=== PATIENT | male | born 1950 | race Two or more races ===

== ENCOUNTER 2018-04-04 10:43 | Inpatient (IN) | payer MEDICARE, MEDICAID ==
[~2018-04-04] VITALS: Ht 165.1 cm; Wt 57.6 kg
[2018-04-04] MEDS ORDERED: Vancomycin 1 GM in NS 275 ML IV ONE (11:00)
--- NOTE | 2018-04-04 11:03 | Emergency Room Report ---
History of Present Illness General Chief Complaint: Dyspnea/Respdistress Source: Medical Record, EMS Present Illness HPI [facility] He is brought in by EMS. He is a history of multiple chronic illnesses. He is nonverbal at baseline. Per EMS, they were [facility] for low oxygen saturation. He has a history of dementia, hypertension, diabetes, recurrent sepsis and pneumonia. There is no other history available. Allergies: Coded Allergies: CEFTRIAXONE (Verified Allergy, Unknown, 04/04/18) Patient History Past Medical History: see triage record, DM, HTN, CAD, pneumonia, GERD, CVA/TIA , dementia Social History: Denies: smoking, alcohol use, drug use Reviewed Nursing Documentation: PMH: Agreed; PSxH: Agreed Review of Systems All Other Systems: limited Physical Exam Vital Signs Date Time Temp Pulse Resp B/P (MAP) Pulse Ox O2 Delivery O2 Flow Rate FiO2 04/04/18 10:45 97.5 114 22 99/67 100 Non-Rebreather 15.0 97.5 Sp02 EP Interpretation: reviewed, normal General Appearance: alert, GCS 15, cachetic, thin, Chronically Ill Head: normocephalic, atraumatic ENT: normal pharynx, no angioedema, other - Mouth open and mouth breathing. Neck: full range of motion, supple/symm/no masses Respiratory: no respiratory distress, no retraction, no accessory muscle use, crackles Cardiovascular #1: no edema, tachycardia Gastrointestinal: normal bowel sounds, soft, non-distended Rectal: deferred Musculoskeletal: other - cachectic, contractions Neurologic: alert, other - Non-focal. Nonverbal at baseline. Unable to cooperate with exam., grossly normal Psychiatric: mood/affect normal Skin: other - See RN skin exam. Multiple DU Medical Decision Making Diagnostic Impression: Primary Impression: Multifocal pneumonia Additional Impressions: Respiratory failure Sepsis Pyelonephritis ER Course This chronically ill patient presents with a multifocal pneumonia and pyelonephritis. There also could be an element of congestive heart failure given the findings on chest x-ray. The patient did have some hypoxemia. There is also some CO2 retention and given the patient's age, I felt that I should place the patient on BiPAP to help with work of breathing. Patient is DO NOT INTUBATE. Patient was also given broad-spectrum antibiotics and IV fluids. Patient is slightly tachycardic but this improved with IV fluids. Patient is chronically ill and has a very poor prognosis. The patient is admitted to the ICU step down. This patient is critically ill. This patient required complex medical decision- making, aggressive intervention, extensive laboratory workup and monitoring. Critical care time: 40 minutes. Laboratory Tests Test 04/04/18 10:45 04/04/18 10:46 White Blood Count 18.5 K/UL (4.8-10.8) H Red Blood Count 3.94 M/UL (4.70-6.10) L Hemoglobin 9.9 G/DL (14.2-18.0) L Hematocrit 33.3 % (42.0-52.0) L Mean Corpuscular Volume 85 FL (80-99) Mean Corpuscular Hemoglobin 25.2 PG (27.0-31.0) L Mean Corpuscular Hemoglobin Concent 29.8 G/DL (32.0-36.0) L Red Cell Distribution Width 16.1 % (11.6-14.8) H Platelet Count 454 K/UL (150-450) H Mean Platelet Volume 7.8 FL (6.5-10.1) Neutrophils (%) (Auto) % (45.0-75.0) Lymphocytes (%) (Auto) % (20.0-45.0) Monocytes (%) (Auto) % (1.0-10.0) Eosinophils (%) (Auto) % (0.0-3.0) Basophils (%) (Auto) % (0.0-2.0) Differential Total Cells Counted 100 Neutrophils % (Manual) 89 % (45-75) H Lymphocytes % (Manual) 8 % (20-45) L Monocytes % (Manual) 2 % (1-10) Eosinophils % (Manual) 0 % (0-3) Basophils % (Manual) 0 % (0-2) Band Neutrophils 1 % (0-8) Platelet Estimate Adequate Platelet Morphology Normal Hypochromasia 2+ Anisocytosis 1+ Urine Color Yellow Urine Appearance Turbid Urine pH 9 (4.5-8.0) Urine Specific Sharon 1.015 (1.005-1.035) Urine Protein 3+ (NEGATIVE) H Urine Glucose (UA) Negative (NEGATIVE) Urine Ketones Negative (NEGATIVE) Urine Blood 4+ (NEGATIVE) H Urine Nitrite Negative (NEGATIVE) Urine Bilirubin Negative (NEGATIVE) Urine Urobilinogen Normal MG/DL (0.0-1.0) Urine Leukocyte Esterase 3+ (NEGATIVE) H Urine RBC Tntc /HPF (0 - 0) H Urine WBC Tntc /HPF (0 - 0) H Urine Squamous Epithelial Cells Few /LPF (NONE/OCC) Urine Triple Phosphate Crystals Moderate /LPF (NONE) H Urine Bacteria Many /HPF (NONE) H Sodium Level 152 MMOL/L (136-145) H Potassium Level 4.0 MMOL/L (3.5-5.1) Chloride Level 110 MMOL/L (98-107) H Carbon Dioxide Level 36 MMOL/L (21-32) H Anion Gap 6 mmol/L (5-15) Blood Urea Nitrogen 46 mg/dL (7-18) H Creatinine 0.8 MG/DL (0.55-1.30) Estimate Glomerular Filtration Rate > 60 mL/min (>60) Glucose Level 281 MG/DL (74-106) H Lactic Acid Level 1.40 mmol/L (0.4-2.0) Calcium Level 9.4 MG/DL (8.5-10.1) Total Bilirubin 0.3 MG/DL (0.2-1.0) Aspartate Amino Transferase (AST) 27 U/L (15-37) Alanine Aminotransferase (ALT) 52 U/L (12-78) Alkaline Phosphatase 177 U/L (46-116) H Total Creatine Kinase 21 U/L (26-308) L Creatine Kinase MB 0.5 NG/ML (0.0-3.6) Creatine Kinase MB Relative Index 2.3 Troponin I 0.000 ng/mL (0.000-0.056) Total Protein 9.3 G/DL (6.4-8.2) H Albumin 1.8 G/DL (3.4-5.0) L Globulin 7.5 g/dL Albumin/Globulin Ratio 0.2 (1.0-2.7) L Arterial Blood pH 7.500 (7.350-7.450) Arterial Blood Partial Pressure CO2 46.6 mmHg (35.0-45.0) H Arterial Blood Partial Pressure O2 53.7 mmHg (75.0-100.0) L Arterial Blood HCO3 36.3 mmol/L (22.0-26.0) H Arterial Blood Oxygen Saturation 90.0 % (92.0-98.0) L Arterial Blood Base Excess 11.9 Daryl Test Positive EKG Diagnostic Results Rate: tachycardiac Rhythm: other - S.tachycardia ST Segments: no acute changes Rhythm Strip Diag. Results EP Interpretation: yes Rate: 110's Rhythm: no PVC's, no ectopy, other - S.tachy Chest X-Ray Diagnostic Results Chest X-Ray Diagnostic Results : Chest X-Ray Ordered: Yes # of Views/Limited/Complete: 1 View Interpretation: other - Diffuse opacities Impression: Other - See above Electronically Signed by: Lucien Last Vital Signs Date Time Temp Pulse Resp B/P (MAP) Pulse Ox O2 Delivery O2 Flow Rate FiO2 04/04/18 10:45 97.5 114 22 99/67 100 Non-Rebreather 15.0 97.5 Disposition: ADMITTED INPATIENT Condition: Critical Kristi Saez DO Apr 04, 2018 11:03
[2018-04-04 11:05] VITALS: BP 99/67
[2018-04-04 11:06] LABS: HEMATOCRIT 33.3 % (42.0-52.0); HEMOGLOBIN 9.9 G/DL (14.2-18.0); MEAN CORPUSCULAR VOLUME 85 FL (80-99); PLATELET COUNT 454 K/UL (150-450); RED BLOOD COUNT 3.94 M/UL (4.70-6.10); RED CELL DISTRIBUTION WIDTH 16.1 % (11.6-14.8); WHITE BLOOD COUNT 18.5 K/UL (4.8-10.8)
[2018-04-04 11:11] LABS: APPEARANCE,URINE TURBID; BILIRUBIN, URINE NEGATIVE (NEGATIVE); GLUCOSE, URINE (UA) NEGATIVE (NEGATIVE); KETONES,URINE NEGATIVE (NEGATIVE); LEUKOCYTE ESTERASE ,URINE 3+ (NEGATIVE); NITRITE,URINE NEGATIVE (NEGATIVE); PH,URINE 9 (4.5-8.0); PROTEIN,URINE 3+ (NEGATIVE); UROBILINOGEN,URINE NORMAL MG/DL (0.0-1.0)
[2018-04-04 11:13] LABS: COLOR,URINE YELLOW
[2018-04-04 11:15] LABS: ANION GAP 6 mmol/L (5-15); BLOOD UREA NITROGEN 46 mg/dL (7-18); CALCIUM 9.4 MG/DL (8.5-10.1); CARBON DIOXIDE 36 MMOL/L (21-32); CHLORIDE 110 MMOL/L (98-107); CREATININE 0.8 MG/DL (0.55-1.30); SODIUM 152 MMOL/L (136-145)
[2018-04-04] MEDS ORDERED: IPRATROPIU0.2 MG/1 M HHN (11:27)
[2018-04-04] MEDS ORDERED: CRANBERRY EXTRAC1 G1 GT (11:27)
[2018-04-04] MEDS ORDERED: ACETAMINOPHEN325 M1 GT (11:27)
[2018-04-04] MEDS ORDERED: ARGINAID POWDE1 EACH GT (11:27)
[2018-04-04] MEDS ORDERED: COLLAGENASE1 EACH MC (11:27)
[2018-04-04] MEDS ORDERED: VITAMIN C500 M1 GT (11:27)
[2018-04-04] MEDS ORDERED: LIQUITEARS15 ML OP (11:27)
[2018-04-04] MEDS ORDERED: TAMSULOSIN HCL0.4 MG GT (11:27)
[2018-04-04] MEDS ORDERED: LANTUS SOL100 UNIT/1 SUBQ (11:27)
[2018-04-04] MEDS ORDERED: [UNRECOGNIZED DRUG - OTHER] GT (11:27)
[2018-04-04] MEDS ORDERED: AVODART0.5 MG GT (11:27)
[2018-04-04] MEDS ORDERED: NOVOLOG100 UNIT/3 SUBQ (11:27)
[2018-04-04] MEDS ORDERED: SILVADENE20 GM TP (11:27)
[2018-04-04] MEDS ORDERED: TYLENOL EXTRA500 MG GT (11:27)
[2018-04-04] MEDS ORDERED: MULTIVITAMINS1 EAC8 GT (11:27)
[2018-04-04 11:41] LABS: ALANINE AMINOTRANSFERASE 52 U/L (12-78); ALBUMIN 1.8 G/DL (3.4-5.0); ALBUMIN/GLOBULIN RATIO 0.2 (1.0-2.7); ALKALINE PHOSPHATASE 177 U/L (46-116); ASPARTATE AMINO TRANSFERASE 27 U/L (15-37); BILIRUBIN,TOTAL 0.3 MG/DL (0.2-1.0); CKMB 0.5 NG/ML (0.0-3.6); CREATINE KINASE 21 U/L (26-308)
[2018-04-04 12:18] VITALS: BP 120/83
[2018-04-04 14:00] VITALS: BP 113/75
--- NOTE | 2018-04-04 14:39 | Diagnostic Imaging Report ---
Indication: Shortness of breath Technique: One view of the chest Comparison: none Findings: There is extensive and diffuse bilateral interstitial and airspace disease. The heart size is upper limits of normal. There may be small pleural effusions bilaterally. There are degenerative changes of the left shoulder. Impression: Bilateral diffuse interstitial and airspace disease-pneumonia versus pulmonary edema. Correlate with clinical findings Possible small bilateral pleural effusions
[2018-04-04] MEDS ORDERED: Acetaminophen 500mg (ES) tab ORAL PRN (15:00)
--- NOTE | 2018-04-04 15:00 | Consultation ---
Consult Note Consult Note asked to eval at the request of Dr parker This [facility]. He is brought in by [facility]. He is a history of multiple chronic illnesses. He is nonverbal at baseline. Per EMS, [facility] for [facility]. He has a history of dementia, hypertension, diabetes, recurrent sepsis and pneumonia. There is no other history available. Allergies: CEFTRIAXONE (Verified Allergy, Unknown, 04/04/18) seen in ER examined data reviewed on BIPAP Has Beltran and PEG Assessment/Plan Acute respiratory failure- Hypoxia - On BIPAP Renal failure- Proteinuria- Hypoalbuminemia Anemia- UTI- Cachexia , Malnutrition- PEG- HypoTension Fluid challenge- respiratory support- Antibiotics Monitor renal parameters per orders Chava Dwyer MD Apr 04, 2018 15:00
[2018-04-04 20:00] VITALS: BP 125/73
[2018-04-04] MEDS: Aztreonam Inj 1 GM in D5W 55 ML IVPB SCH (22:06)
[2018-04-04] MEDS ORDERED: Albuterol/Ipratropium 3ml neb HHN PRN (22:45)
[2018-04-04] MEDS: Vancomycin 500mg/D5W 110ml IVPB SCH ×2 (23:38)
[2018-04-05] VITALS: BP 100/60
[2018-04-05] MEDS: Albuterol/Ipratropium 3ml neb HHN SCH ×4 (01:38→21:04)
[2018-04-05 04:00] VITALS: BP 96/58
[2018-04-05 05:09] LABS: ALANINE AMINOTRANSFERASE 38 U/L (12-78); ALBUMIN/GLOBULIN RATIO 0.3 (1.0-2.7); ALKALINE PHOSPHATASE 104 U/L (46-116); ANION GAP 5 mmol/L (5-15); ASPARTATE AMINO TRANSFERASE 21 U/L (15-37); BILIRUBIN,TOTAL 0.5 MG/DL (0.2-1.0); BLOOD UREA NITROGEN 25 mg/dL (7-18); CALCIUM 9.1 MG/DL (8.5-10.1); CARBON DIOXIDE 31 MMOL/L (21-32); CHLORIDE 112 MMOL/L (98-107); CHOLESTEROL 67 MG/DL (< 200); CREATININE 0.6 MG/DL (0.55-1.30); FERRITIN 800 NG/ML (8-388); GAMMA GLUTAMYL TRANSPEPTIDASE 26 U/L (5-85); HDL CHOLESTEROL 16 MG/DL (40-60); PHOSPHORUS 2.4 MG/DL (2.5-4.9); POTASSIUM 3.1 MMOL/L (3.5-5.1); SODIUM 148 MMOL/L (136-145); TRIGLYCERIDES 105 MG/DL (30-150)
[2018-04-05 05:39] LABS: % IRON SATURATION 19 % (15-50); IRON 16 ug/dL (50-175); TOTAL IRON BINDING CAPACITY 85 ug/dL (250-450)
[2018-04-05] MEDS: Aztreonam Inj 1 GM in D5W 55 ML IVPB SCH ×3 (05:59→21:00)
--- NOTE | 2018-04-05 07:34 | General Progress Note ---
Assessment/Plan Problem List: (1) Diabetes mellitus out of control ICD Codes: E11.65 - Type 2 diabetes mellitus with hyperglycemia SNOMED: 13697284, 596074051 (2) Multifocal pneumonia ICD Codes: J18.9 - Pneumonia, unspecified organism SNOMED: 373624290 (3) Sepsis ICD Codes: A41.9 - Sepsis, unspecified organism SNOMED: 28541344 (4) Respiratory failure ICD Codes: J96.90 - Respiratory failure, unspecified, unspecified whether with hypoxia or hypercapnia SNOMED: 875521855 (5) Pyelonephritis ICD Codes: N12 - Tubulo-interstitial nephritis, not specified as acute or chronic SNOMED: 16975304 Assessment/Plan start BG monitoring and Novolog sliding scale ac / hs no need for scheduled insulin order now Subjective ROS Limited/Unobtainable: Yes Allergies: Coded Allergies: CEFTRIAXONE (Verified Allergy, Unknown, 04/04/18) Subjective This [facility]. He is brought in by EMS. He is a history of multiple chronic illnesses. He is nonverbal at baseline. Per EMS, [facility]. He has a history of dementia, hypertension, diabetes, recurrent sepsis and pneumonia. There is no other history available. Objective Last 24 Hour Vital Signs Date Time Temp Pulse Resp B/P (MAP) Pulse Ox O2 Delivery O2 Flow Rate FiO2 04/05/18 07:25 88 28 95 Nasal Cannula 2.0 28 04/05/18 07:23 Nasal Cannula 2.0 28 04/05/18 07:22 96 Nasal Cannula 2.0 28 04/05/18 05:30 83 26 100 Full Face 50 04/05/18 04:00 Nasal Cannula 2.0 04/05/18 04:00 30 04/05/18 04:00 85 04/05/18 04:00 97.9 86 26 96/58 (71) 100 97.9 04/05/18 03:23 91 28 100 Facial 50 04/05/18 01:39 108 40 100 Bi-pap 50 04/05/18 01:30 95 38 99 Bi-pap 04/05/18 01:30 94 25 100 Full Face 50 04/05/18 00:00 87 04/05/18 00:00 Nasal Cannula 2.0 04/05/18 00:00 98.6 96 28 100/60 (73) 95 98.6 04/05/18 00:00 30 04/04/18 23:05 97 28 98 Full Face 30 04/04/18 22:48 98 32 Bi-pap 40 04/04/18 21:01 99 2.0 28 04/04/18 20:00 Nasal Cannula 2.0 04/04/18 20:00 2.0 04/04/18 20:00 98.6 100 24 125/73 (90) 99 98.6 04/04/18 20:00 101 04/04/18 19:30 99 2.0 28 04/04/18 16:50 102 99 32 04/04/18 16:32 Nasal Cannula 2.0 04/04/18 16:04 101 97 32 04/04/18 16:00 Nasal Cannula 2.0 04/04/18 16:00 2.0 04/04/18 16:00 105 04/04/18 15:55 97.6 95 30 113/75 99 4.0 30 97.6 04/04/18 14:30 94 30 99 Full Face 30 04/04/18 14:26 4.0 30 04/04/18 14:00 97.6 95 37 113/75 100 Bi-pap 4.0 40 97.6 04/04/18 13:41 97 37 100 Full Face 40 04/04/18 13:40 40 04/04/18 12:25 50 04/04/18 12:25 96 37 100 Full Face 50 04/04/18 12:25 96 37 Bi-pap 50 04/04/18 12:18 97.6 98 30 120/83 94 Bi-pap 50 97.6 04/04/18 11:05 97.5 113 22 99/67 100 Nasal Cannula 4.0 97.5 04/04/18 10:59 114 22 Simple Mask 6.0 04/04/18 10:45 97.5 114 22 99/67 100 Non-Rebreather 15.0 97.5 Intake and Output 04/04/18 04/05/18 19:00 07:00 Intake Total 75 ml 765 ml Output Total 1600 ml 730 ml Balance -1525 ml 35 ml Intake Oral 0 ml IV Total 75 ml 765 ml Output Urine Total 1600 ml 730 ml # Bowel Movements 2 1 Laboratory Tests 04/04/18 10:41: C-Reactive Protein, Quantitative 50.5H 04/04/18 10:45: White Blood Count 18.5H, Red Blood Count 3.94L, Hemoglobin 9.9L, Hematocrit 33.3L, Mean Corpuscular Volume 85, Mean Corpuscular Hemoglobin 25.2L, Mean Corpuscular Hemoglobin Concent 29.8L, Red Cell Distribution Width 16.1H, Platelet Count 454H, Mean Platelet Volume 7.8, Neutrophils (%) (Auto) , Lymphocytes (%) (Auto) , Monocytes (%) (Auto) , Eosinophils (%) (Auto) , Basophils (%) (Auto) , Differential Total Cells Counted 100, Neutrophils % ( Manual) 89H, Lymphocytes % (Manual) 8L, Monocytes % (Manual) 2, Eosinophils % ( Manual) 0, Basophils % (Manual) 0, Band Neutrophils 1, Platelet Estimate Adequate, Platelet Morphology Normal, Hypochromasia 2+, Anisocytosis 1+, Urine Color Yellow, Urine Appearance Turbid, Urine pH 9, Urine Specific Marcella 1.015 , Urine Protein 3+H, Urine Glucose (UA) Negative, Urine Ketones Negative, Urine Blood 4+H, Urine Nitrite Negative, Urine Bilirubin Negative, Urine Urobilinogen Normal, Urine Leukocyte Esterase 3+H, Urine RBC TntcH, Urine WBC TntcH, Urine Squamous Epithelial Cells Few, Urine Triple Phosphate Crystals ModerateH, Urine Bacteria ManyH, Sodium Level 152H, Potassium Level 4.0, Chloride Level 110H, Carbon Dioxide Level 36H, Anion Gap 6, Blood Urea Nitrogen 46H, Creatinine 0.8, Estimat Glomerular Filtration Rate > 60, Glucose Level 281H, Lactic Acid Level 1.40, Calcium Level 9.4, Total Bilirubin 0.3, Aspartate Amino Transf (AST/SGOT) 27, Alanine Aminotransferase (ALT/SGPT) 52, Alkaline Phosphatase 177H, Total Creatine Kinase 21L, Creatine Kinase MB 0.5, Creatine Kinase MB Relative Index 2.3, Troponin I 0.000, Total Protein 9.3H, Albumin 1.8L, Globulin 7.5, Albumin/ Globulin Ratio 0.2L 04/04/18 10:46: Arterial Blood pH 7.500H, Arterial Blood Partial Pressure CO2 46.6H, Arterial Blood Partial Pressure O2 53.7L, Arterial Blood HCO3 36.3H, Arterial Blood Oxygen Saturation 90.0L, Arterial Blood Base Excess 11.9, Daryl Test Positive 04/04/18 23:10: Albumin/Globulin Ratio [Pending], D-Dimer 2.05H, Ionized Calcium (Measured) 1.16 , Pro-B-Type Natriuretic Peptide 703H, Total Protein (PEP) [Pending], Albumin ( PEP) [Pending], Globulin (PEP) [Pending], Viyxi-4-Vzecxlpcm [Pending], Alpha-2- Globulins [Pending], Beta Globulins [Pending], Beta Gamma Globulin [Pending], PEP Abnormal Protein Bands [Pending], Protein Electrophoresis Interpret [Pending ] 04/04/18 23:50: Urine Total Protein [Pending], Urine Albumin (%) [Pending], Urine Alpha-1- Globulins (%) [Pending], Urine Iwbfz-1-Aroemdzwg (%) [Pending], Urine Beta- Globulin (%) [Pending], Urine Gamma Globulin (%) [Pending], Ur Protein Electrophoresis M-Josesito [Pending], Urine Protein Electrophoresis Intrp [Pending] 04/05/18 04:00: Sodium Level 148H, Potassium Level 3.1L, Chloride Level 112H, Carbon Dioxide Level 31, Anion Gap 5, Blood Urea Nitrogen 25H, Creatinine 0.6, Estimat Glomerular Filtration Rate > 60, Glucose Level 155#H, Hemoglobin A1c 7.8H, Calcium Level 9.1, Phosphorus Level 2.4L, Magnesium Level 1.6L, Iron Level 16L, Total Iron Binding Capacity 85L, Percent Iron Saturation 19, Unsaturated Iron Binding 69L, Ferritin 800H, Total Bilirubin 0.5, Gamma Glutamyl Transpeptidase 26, Aspartate Amino Transf (AST/SGOT) 21, Alanine Aminotransferase (ALT/SGPT) 38 , Alkaline Phosphatase 104, Pro-B-Type Natriuretic Peptide 842H, Total Protein 8.1, Albumin 2.0L, Globulin 6.1, Albumin/Globulin Ratio 0.3L, Triglycerides Level 105, Cholesterol Level 67, LDL Cholesterol 42, HDL Cholesterol 16L, Cholesterol/HDL Ratio 4.2, Vitamin B12 Level 1923H, Folate 34.7, Thyroid Stimulating Hormone (TSH) 1.018, Cortisol AM Sample [Pending] Height (Feet): 5 Height (Inches): 5.00 Weight (Pounds): 120 General Appearance: no apparent distress Neck: normal alignment Cardiovascular: normal rate Respiratory/Chest: decreased breath sounds Abdomen: normal bowel sounds Edema: no edema noted Arm (L), no edema noted Arm (R), no edema noted Leg (L), no edema noted Leg (R), no edema noted Pedal (L), no edema noted Pedal (R), no edema noted Generalized Objective Current Medications Medications (Trade) Dose Ordered Sig/Briseida Route PRN Reason Start Time Stop Time Status Last Admin Dose Admin Acetaminophen (Tylenol) 650 mg Q4H PRN ORAL Mild Pain/Temp > 100.5 04/04/18 15:04 05/04/18 14:59 Albuterol/ Ipratropium (Albuterol/ Ipratropium) 3 ml Q4H PRN HHN Shortness of Breath 04/04/18 22:45 04/09/18 22:44 Albuterol/ Ipratropium (Albuterol/ Ipratropium) 3 ml Q6HRT HHN 04/05/18 01:00 04/10/18 00:59 04/05/18 07:27 Aztreonam 1 gm/ Dextrose 55 ml @ 110 mls/hr Q8HR IVPB 04/04/18 22:00 04/11/18 21:59 04/05/18 05:59 Dextrose (Dextrose 50%) 50 ml PRN PRN IV Hypoglycemia 04/04/18 19:00 05/04/18 18:59 Famotidine (Pepcid) 20 mg BID GT 04/04/18 18:00 05/04/18 17:59 04/04/18 18:00 Heparin Sodium (Porcine) (Heparin 5000 units/ml) 5,000 units EVERY 12 HOURS SUBQ 04/05/18 09:00 05/05/18 08:59 Levofloxacin (Levaquin) 500 mg Q24H GT 04/05/18 17:00 04/12/18 16:59 Sodium Chloride 1,000 ml @ 75 mls/hr [id number] IV 04/04/18 15:03 05/04/18 15:02 04/05/18 04:44 Vancomycin HCl (Vanco rx to dose) 1 ea DAILY PRN MISC Per rx protocol 04/04/18 19:30 05/04/18 19:29 Vancomycin HCl 500 mg/Dextrose 110 ml @ 110 mls/hr Q12H IVPB 04/04/18 23:00 04/09/18 22:59 04/04/18 23:38 Item Value Date Time Bedside Blood Glucose 160 mg/dl H 04/05/18 0600 Bedside Blood Glucose 172 mg/dl H 04/05/18 0000 Bedside Blood Glucose 231 mg/dl H 04/04/18 1843 Tello Parker MD Apr 05, 2018 07:34
[2018-04-05 07:58] VITALS: BP 111/65
[2018-04-05] MEDS: Heparin 5000 units/ml inj SUBQ SCH ×2 (08:05→20:35)
--- NOTE | 2018-04-05 10:50 | Nephrology Progress Note ---
Assessment/Plan Problem List: (1) Respiratory failure (2) Diabetes mellitus out of control (3) Acute renal failure (4) Proteinuria Assessment Acute respiratory failure- Hypoxia - On BIPAP Renal failure- Proteinuria- Hypoalbuminemia Anemia- UTI- Cachexia , Malnutrition- PEG- HypoTension Plan Fluid challenge- respiratory support- Antibiotics Monitor renal parameters K Phos Mag supplement as needed per orders Objective Objective Last 24 Hour Vital Signs Date Time Temp Pulse Resp B/P (MAP) Pulse Ox O2 Delivery O2 Flow Rate FiO2 04/05/18 08:13 2.0 04/05/18 08:12 Nasal Cannula 2.0 04/05/18 07:58 97.0 91 25 111/65 (80) 100 97.0 04/05/18 07:30 90 28 96 Nasal Cannula 2.0 28 04/05/18 07:29 88 28 99 Nasal Cannula 2.0 28 04/05/18 07:25 88 28 95 Nasal Cannula 2.0 28 04/05/18 07:23 Nasal Cannula 2.0 28 04/05/18 07:22 96 Nasal Cannula 2.0 28 04/05/18 05:30 83 26 100 Full Face 50 04/05/18 04:00 Nasal Cannula 2.0 04/05/18 04:00 30 04/05/18 04:00 85 04/05/18 04:00 97.9 86 26 96/58 (71) 100 97.9 04/05/18 03:23 91 28 100 Facial 50 04/05/18 01:39 108 40 100 Bi-pap 50 04/05/18 01:30 95 38 99 Bi-pap 04/05/18 01:30 94 25 100 Full Face 50 04/05/18 00:00 87 04/05/18 00:00 Nasal Cannula 2.0 04/05/18 00:00 98.6 96 28 100/60 (73) 95 98.6 04/05/18 00:00 30 04/04/18 23:05 97 28 98 Full Face 30 04/04/18 22:48 98 32 Bi-pap 40 04/04/18 21:01 99 2.0 28 04/04/18 20:00 Nasal Cannula 2.0 04/04/18 20:00 2.0 04/04/18 20:00 98.6 100 24 125/73 (90) 99 98.6 04/04/18 20:00 101 04/04/18 19:30 99 2.0 28 04/04/18 16:50 102 99 32 04/04/18 16:32 Nasal Cannula 2.0 04/04/18 16:04 101 97 32 04/04/18 16:00 Nasal Cannula 2.0 04/04/18 16:00 2.0 04/04/18 16:00 105 04/04/18 15:55 97.6 95 30 113/75 99 4.0 30 97.6 04/04/18 14:30 94 30 99 Full Face 30 04/04/18 14:26 4.0 30 04/04/18 14:00 97.6 95 37 113/75 100 Bi-pap 4.0 40 97.6 04/04/18 13:41 97 37 100 Full Face 40 04/04/18 13:40 40 04/04/18 12:25 50 04/04/18 12:25 96 37 100 Full Face 50 04/04/18 12:25 96 37 Bi-pap 50 04/04/18 12:18 97.6 98 30 120/83 94 Bi-pap 50 97.6 04/04/18 11:05 97.5 113 22 99/67 100 Nasal Cannula 4.0 97.5 04/04/18 10:59 114 22 Simple Mask 6.0 Intake and Output 04/04/18 04/05/18 19:00 07:00 Intake Total 75 ml 765 ml Output Total 1600 ml 730 ml Balance -1525 ml 35 ml Intake Oral 0 ml IV Total 75 ml 765 ml Output Urine Total 1600 ml 730 ml # Bowel Movements 2 1 Laboratory Tests 04/04/18 23:10: D-Dimer 2.05H, Ionized Calcium (Measured) 1.16, Pro-B-Type Natriuretic Peptide 703H, Total Protein (PEP) [Pending], Albumin (PEP) [Pending], Globulin (PEP) [ Pending], Albumin/Globulin Ratio [Pending], Cjcdc-0-Qhauzpjra [Pending], Alpha-2 -Globulins [Pending], Beta Globulins [Pending], Beta Gamma Globulin [Pending], PEP Abnormal Protein Bands [Pending], Protein Electrophoresis Interpret [Pending ] 04/04/18 23:50: Urine Total Protein [Pending], Urine Albumin (%) [Pending], Urine Alpha-1- Globulins (%) [Pending], Urine Eumqa-6-Ehurjqgno (%) [Pending], Urine Beta- Globulin (%) [Pending], Urine Gamma Globulin (%) [Pending], Ur Protein Electrophoresis M-Josesito [Pending], Urine Protein Electrophoresis Intrp [Pending] 04/05/18 04:00: Pro-B-Type Natriuretic Peptide 842H, Albumin/Globulin Ratio 0.3L, Sodium Level 148H, Potassium Level 3.1L, Chloride Level 112H, Carbon Dioxide Level 31, Anion Gap 5, Blood Urea Nitrogen 25H, Creatinine 0.6, Estimat Glomerular Filtration Rate > 60, Glucose Level 155#H, Hemoglobin A1c 7.8H, Calcium Level 9.1, Phosphorus Level 2.4L, Magnesium Level 1.6L, Iron Level 16L, Total Iron Binding Capacity 85L, Percent Iron Saturation 19, Unsaturated Iron Binding 69L, Ferritin 800H, Total Bilirubin 0.5, Gamma Glutamyl Transpeptidase 26, Aspartate Amino Transf (AST/SGOT) 21, Alanine Aminotransferase (ALT/SGPT) 38, Alkaline Phosphatase 104, Total Protein 8.1, Albumin 2.0L, Globulin 6.1, Triglycerides Level 105, Cholesterol Level 67, LDL Cholesterol 42, HDL Cholesterol 16L, Cholesterol/HDL Ratio 4.2, Vitamin B12 Level 1923H, Folate 34.7, Thyroid Stimulating Hormone (TSH) 1.018, Cortisol AM Sample [Pending] Height (Feet): 5 Height (Inches): 5.00 Weight (Pounds): 120 Chava Dwyer MD Apr 05, 2018 10:50
[2018-04-05] MEDS: NovoLOG Insulin Flexpen SUBQ SCH ×4 (11:30→20:45)
[2018-04-05] MEDS: Vancomycin 500mg/D5W 110ml IVPB SCH ×2 (11:56)
[2018-04-05 12:00] VITALS: BP 117/68
--- NOTE | 2018-04-05 12:30 | History and Physical Report ---
DATE OF ADMISSION: 04/04/2018 TIME: 10 a.m. WEB DATABASE DEVELOPER: Jamia Wu M.D. CHIEF COMPLAINT: Shortness of breath, pneumonia, and respiratory failure. BRIEF HISTORY: This is a 68-year-old male from [facility], presented with increased shortness of breath and hypoxia came to [facility], diagnosed with pneumonia, sepsis, hypoxia, and respiratory failure, and admitted to [facility] for further care. Currently, O2 NC, calm, slightly confused, nonverbal, in bed. PAST MEDICAL HISTORY: Diabetes, acute renal failure, and respiratory failure. PAST SURGICAL HISTORY: Unknown. MEDICATIONS: Include Levaquin, IV fluids, potassium, NovoLog, heparin, magnesium, albuterol, vancomycin, aztreonam, and Tylenol. ALLERGIES: Ceftriaxone. SOCIAL HISTORY: Unable to obtain secondary to the patient's condition. REVIEW OF SYSTEMS: Unavailable. PHYSICAL EXAMINATION: GENERAL: O2 NC, calm in bed, confused, nonverbal. VITAL SIGNS: Temperature is 97, pulse 90, respirations 25, and blood pressure 111/65. CARDIOVASCULAR: No murmur. LUNGS: Poor air exchange. ABDOMEN: Bowel sound positive. Nontender. Nondistended. EXTREMITIES: No cyanosis, clubbing, or edema. NEUROLOGIC: The patient moves all extremities, slightly weak. LABORATORY AND DIAGNOSTIC DATA: White count 18, hemoglobin and hematocrit 9.9/33, platelets 454. BMP shows sodium 148, potassium 3.1, chloride 112, BUN 25, glucose 155. D-dimer . Urinalysis show 3+ leukocyte esterase. ASSESSMENT: 1. Hypoxia. 2. UTI. 3. Pneumonia. 4. Sepsis. 5. Anemia. 6. Respiratory failure. 7. Diabetes. 8. Acute renal failure. PLAN: 1. O2 and pulmonary treatment. 2. Antibiotics per Infectious Disease. 3. Blood pressure and blood sugar control. 4. OT, PT, and dietary evaluation. 5. CBC and BMP in the morning. 6. Consultants was called by Dr. Wu. 7. We will continue to follow this patient. Franky Bermudez D.O. DR: AUDRA/TONEY JOB#: [id number] CC:
[2018-04-05] MEDS ORDERED: Potassium Phosphate 30 MM in NS 275 ML IV SCH (13:00)
--- NOTE | 2018-04-05 13:35 | Infectious Diseases Prog Note ---
Assessment/Plan Problems: (1) HCAP (healthcare-associated pneumonia) Assessment & Plan: with diffuse infiltrates, continue vancomycin, aztreonam and levaquin empirically will send sputum culture monitor CXR aspiration precaution keep HOB >30 degress (2) UTI (urinary tract infection) Assessment & Plan: continue aztreonam , pending culture (3) Sepsis Assessment & Plan: due to the above continue vancomycin, aztreonam and levaquin await blood culture (4) Diabetes mellitus out of control Assessment & Plan: recommend tight glycemic control keep blood sugar between 100-140 (5) Decubitus skin ulcer Assessment & Plan: continue off loading and local wound care as per hospital protocol Subjective Allergies: Coded Allergies: CEFTRIAXONE (Verified Allergy, Unknown, 04/04/18) Objective Vital Signs Last 24 Hour Vital Signs Date Time Temp Pulse Resp B/P (MAP) Pulse Ox O2 Delivery O2 Flow Rate FiO2 04/05/18 13:28 86 24 96 Nasal Cannula 2.0 28 04/05/18 08:13 2.0 04/05/18 08:12 Nasal Cannula 2.0 04/05/18 07:58 97.0 91 25 111/65 (80) 100 97.0 04/05/18 07:30 90 28 96 Nasal Cannula 2.0 28 04/05/18 07:29 88 28 99 Nasal Cannula 2.0 28 04/05/18 07:25 88 28 95 Nasal Cannula 2.0 28 04/05/18 07:23 Nasal Cannula 2.0 28 04/05/18 07:22 96 Nasal Cannula 2.0 28 04/05/18 05:30 83 26 100 Full Face 50 04/05/18 04:00 Nasal Cannula 2.0 04/05/18 04:00 30 04/05/18 04:00 85 04/05/18 04:00 97.9 86 26 96/58 (71) 100 97.9 04/05/18 03:23 91 28 100 Facial 50 04/05/18 01:39 108 40 100 Bi-pap 50 04/05/18 01:30 95 38 99 Bi-pap 04/05/18 01:30 94 25 100 Full Face 50 04/05/18 00:00 87 04/05/18 00:00 Nasal Cannula 2.0 04/05/18 00:00 98.6 96 28 100/60 (73) 95 98.6 04/05/18 00:00 30 04/04/18 23:05 97 28 98 Full Face 30 04/04/18 22:48 98 32 Bi-pap 40 04/04/18 21:01 99 2.0 28 04/04/18 20:00 Nasal Cannula 2.0 04/04/18 20:00 2.0 04/04/18 20:00 98.6 100 24 125/73 (90) 99 98.6 04/04/18 20:00 101 04/04/18 19:30 99 2.0 28 04/04/18 16:50 102 99 32 04/04/18 16:32 Nasal Cannula 2.0 04/04/18 16:04 101 97 32 04/04/18 16:00 Nasal Cannula 2.0 04/04/18 16:00 2.0 04/04/18 16:00 105 04/04/18 15:55 97.6 95 30 113/75 99 4.0 30 97.6 04/04/18 14:30 94 30 99 Full Face 30 04/04/18 14:26 4.0 30 04/04/18 14:00 97.6 95 37 113/75 100 Bi-pap 4.0 40 97.6 04/04/18 13:41 97 37 100 Full Face 40 04/04/18 13:40 40 Height (Feet): 5 Height (Inches): 5.00 Weight (Pounds): 120 Microbiology Date/Time Source Procedure Growth Status 04/04/18 10:45 Urine,Clean Catch Urine Culture - Preliminary Gram Negative Norman Resulted Laboratory Tests Test 04/04/18 23:10 04/04/18 23:50 04/05/18 04:00 D-Dimer 2.05 mg/L FEU (0.00-0.49) H Ionized Calcium (Measured) 1.16 mmol/L (1.10-1.35) Pro-B-Type Natriuretic Peptide 703 pg/mL (0-125) H 842 pg/mL (0-125) H Total Protein (PEP) Pending Albumin (PEP) Pending Globulin (PEP) Pending Albumin/Globulin Ratio Pending 0.3 (1.0-2.7) L Zilgn-4-Zjnqcyffs Pending Wjzkx-7-Zxgeiudjt Pending Beta Globulins Pending Beta Gamma Globulin Pending PEP Abnormal Protein Bands Pending Protein Electrophoresis Interpret Pending Urine Total Protein Pending Urine Albumin (%) Pending Urine Gifum-5-Cjnmjnpig (%) Pending Urine Nggaz-2-Kcrzpoghz (%) Pending Urine Beta-Globulin (%) Pending Urine Gamma Globulin (%) Pending Ur Protein Electrophoresis M-Josesito Pending Urine Protein Electrophoresis Intrp Pending Sodium Level 148 MMOL/L (136-145) H Potassium Level 3.1 MMOL/L (3.5-5.1) L Chloride Level 112 MMOL/L (98-107) H Carbon Dioxide Level 31 MMOL/L (21-32) Anion Gap 5 mmol/L (5-15) Blood Urea Nitrogen 25 mg/dL (7-18) H Creatinine 0.6 MG/DL (0.55-1.30) Estimat Glomerular Filtration Rate > 60 mL/min (>60) Glucose Level 155 MG/DL (74-106) #H Hemoglobin A1c 7.8 % (4.3-6.0) H Calcium Level 9.1 MG/DL (8.5-10.1) Phosphorus Level 2.4 MG/DL (2.5-4.9) L Magnesium Level 1.6 MG/DL (1.8-2.4) L Iron Level 16 ug/dL (50-175) L Total Iron Binding Capacity 85 ug/dL (250-450) L Percent Iron Saturation 19 % (15-50) Unsaturated Iron Binding 69 ug/dL (112-346) L Ferritin 800 NG/ML (8-388) H Total Bilirubin 0.5 MG/DL (0.2-1.0) Gamma Glutamyl Transpeptidase 26 U/L (5-85) Aspartate Amino Transf (AST/SGOT) 21 U/L (15-37) Alanine Aminotransferase (ALT/SGPT) 38 U/L (12-78) Alkaline Phosphatase 104 U/L (46-116) C-Reactive Protein, Quantitative < 0.4 mg/dL (0.00-0.90) Total Protein 8.1 G/DL (6.4-8.2) Albumin 2.0 G/DL (3.4-5.0) L Globulin 6.1 g/dL Triglycerides Level 105 MG/DL (30-150) Cholesterol Level 67 MG/DL (< 200) LDL Cholesterol 42 mg/dL (<100) HDL Cholesterol 16 MG/DL (40-60) L Cholesterol/HDL Ratio 4.2 (3.3-4.4) Vitamin B12 Level 1923 PG/ML (193-986) H Folate 34.7 NG/ML (8.6-58.9) Thyroid Stimulating Hormone (TSH) 1.018 uiU/mL (0.358-3.740) Cortisol AM Sample Pending Current Medications Medications (Trade) Dose Ordered Sig/Briseida Route PRN Reason Start Time Stop Time Status Last Admin Dose Admin Acetaminophen (Tylenol) 650 mg Q4H PRN ORAL Mild Pain/Temp > 100.5 04/04/18 15:04 05/04/18 14:59 Albuterol/ Ipratropium (Albuterol/ Ipratropium) 3 ml Q4H PRN HHN Shortness of Breath 04/04/18 22:45 04/09/18 22:44 Albuterol/ Ipratropium (Albuterol/ Ipratropium) 3 ml Q6HRT HHN 04/05/18 01:00 04/10/18 00:59 04/05/18 13:28 Aztreonam 1 gm/ Dextrose 55 ml @ 110 mls/hr Q8HR IVPB 04/04/18 22:00 04/11/18 21:59 04/05/18 13:07 Dextrose (Dextrose 50%) 25 ml STAT PRN IV Hypoglycemia 04/05/18 07:45 05/05/18 07:44 Dextrose (Dextrose 50%) 50 ml STAT PRN IV Hypoglycemia 04/05/18 07:45 05/05/18 07:44 Famotidine (Pepcid) 20 mg BID GT 04/04/18 18:00 05/04/18 17:59 04/05/18 08:03 Heparin Sodium (Porcine) (Heparin 5000 units/ml) 5,000 units EVERY 12 HOURS SUBQ 04/05/18 09:00 05/05/18 08:59 04/05/18 08:05 Insulin Aspart (NovoLOG) BEFORE MEALS AND HS SUBQ 04/05/18 11:30 05/05/18 11:29 Levofloxacin (Levaquin) 500 mg Q24H GT 04/05/18 17:00 04/12/18 16:59 Potassium Phosphate 30 mm/ Sodium Chloride 285 ml @ 47.5 mls/hr ONCE IV 04/05/18 13:00 04/05/18 18:59 Sodium Chloride 1,000 ml @ 50 mls/hr Q20H IV 04/05/18 15:00 05/04/18 14:59 Vancomycin HCl (Vanco rx to dose) 1 ea DAILY PRN MISC Per rx protocol 04/04/18 19:30 05/04/18 19:29 Vancomycin HCl 500 mg/Dextrose 110 ml @ 110 mls/hr Q12H IVPB 04/04/18 23:00 04/09/18 22:59 04/05/18 11:56 Jose Álvarez M.D. Apr 05, 2018 13:35
--- NOTE | 2018-04-05 14:01 | Consultation ---
History of Present Illness General Date patient seen: Apr 05, 2018 Chief Complaint: Dyspnea/Respdistress Referring physician: Jamia Zhou MD Reason for Consultation: Respiratory failure Present Illness HPI 68 M NHR h/o CVA/dementia, non-verbal, GT, MMP BiB EMS with hypoxemia, CXR with B airspace opacities. Also with hypoTN, hyperNa and renal insufficiency, all improved with IVF. No F/C, no cough, no congestion, no N/V/D/C Allergies: Coded Allergies: CEFTRIAXONE (Verified Allergy, Unknown, 04/04/18) Medication History Scheduled Ascorbic Acid* (Vitamin C*), 500 MG GT DAILY, (Reported) Cranberry Extract (Cranberry Extract), 1 CAP GT BID, (Reported) Donepezil HCl (Aricept), 10 MG GT BEDTIME, (Reported) Dutasteride (Avodart), 0.5 MG GT DAILY, (Reported) Insulin Glargine (Lantus), 31 SUBQ BEDTIME, (Reported) Multivitamin With Minerals (Multivitamins With Minerals*), 1 TAB GT DAILY, ( Reported) Tamsulosin Hcl (Tamsulosin Hcl*), 0.4 MG GT BEDTIME, (Reported) Scheduled PRN Acetaminophen* (Acetaminophen 325MG Tablet*), 650 MG GT Q4H PRN for wound care, (Reported) Acetaminophen* (Tylenol Extra Strength*), 650 MG GT Q4HR PRN for Mild Pain/Temp > 100.5, (Reported) Acetaminophen* (Acetaminophen 325MG Tablet*), 650 MG GT Q4H PRN for Fever/ Headache/Mild Pain, (Reported) Arginine/Ascorbate Sod/Abigail AC (Arginaid Powder), 1 EACH GT BID PRN for wound healing, (Reported) Ipratropium Bruce 0.5MG/2.5ML (Ipratropium Bruce 0.5MG/2.5ML), 0.5 MG HHN Q4HR PRN for Shortness of Breath, (Reported) Polyvinyl Alcohol (Liquitears), 1 DRP OP EVERY 4 HOURS PRN for Dry Eyes, ( Reported) Miscellaneous Medications Collagenase Clostridium Hist. (Collagenase), 1 EACH MC, (Reported) Insulin Aspart* (Novolog*), 0 SUBQ, (Reported) Silver Sulfadiazine (Silvadene), 20 GM TP, (Reported) Patient History Limited by: medical condition History Provided By: Medical Record Healthcare decision maker Belinda Rivero (daughter) Resuscitation status Do Not Resuscitate Advanced Directive on File No Past Medical/Surgical History Past Medical/Surgical History: (1) Pyelonephritis (2) Respiratory failure (3) Sepsis (4) Multifocal pneumonia (5) Acute renal failure (6) Diabetes mellitus out of control (7) Proteinuria (8) UTI (urinary tract infection) (9) HCAP (healthcare-associated pneumonia) (10) Decubitus skin ulcer Review of Systems ROS Narrative UNOBTAINABLE Physical Exam General Appearance: cachetic Lines, tubes and drains: peripheral HEENT: normocephalic, atraumatic, anicteric, mucous membranes moist Neck: non-tender, normal alignment, supple, normal inspection Respiratory/Chest: rhonchi - bilaterally Cardiovascular/Chest: normal peripheral pulses, normal rate, regular rhythm Abdomen: normal bowel sounds, non tender, soft, no organomegaly, no mass, feeding tube Extremities: no edema, no cyanosis Skin Exam: warm/dry Last 24 Hour Vital Signs Date Time Temp Pulse Resp B/P (MAP) Pulse Ox O2 Delivery O2 Flow Rate FiO2 04/05/18 13:30 83 28 98 Nasal Cannula 2.0 28 04/05/18 13:28 86 24 96 Nasal Cannula 2.0 28 04/05/18 12:00 86 04/05/18 08:13 2.0 04/05/18 08:12 Nasal Cannula 2.0 04/05/18 08:00 89 04/05/18 07:58 97.0 91 25 111/65 (80) 100 97.0 04/05/18 07:30 90 28 96 Nasal Cannula 2.0 28 04/05/18 07:29 88 28 99 Nasal Cannula 2.0 28 04/05/18 07:25 88 28 95 Nasal Cannula 2.0 28 04/05/18 07:23 Nasal Cannula 2.0 28 04/05/18 07:22 96 Nasal Cannula 2.0 28 04/05/18 05:30 83 26 100 Full Face 50 04/05/18 04:00 Nasal Cannula 2.0 04/05/18 04:00 30 04/05/18 04:00 85 04/05/18 04:00 97.9 86 26 96/58 (71) 100 97.9 04/05/18 03:23 91 28 100 Facial 50 04/05/18 01:39 108 40 100 Bi-pap 50 04/05/18 01:30 95 38 99 Bi-pap 04/05/18 01:30 94 25 100 Full Face 50 04/05/18 00:00 87 04/05/18 00:00 Nasal Cannula 2.0 04/05/18 00:00 98.6 96 28 100/60 (73) 95 98.6 04/05/18 00:00 30 04/04/18 23:05 97 28 98 Full Face 30 04/04/18 22:48 98 32 Bi-pap 40 04/04/18 21:01 99 2.0 28 04/04/18 20:00 Nasal Cannula 2.0 04/04/18 20:00 2.0 04/04/18 20:00 98.6 100 24 125/73 (90) 99 98.6 04/04/18 20:00 101 04/04/18 19:30 99 2.0 28 04/04/18 16:50 102 99 32 04/04/18 16:32 Nasal Cannula 2.0 04/04/18 16:04 101 97 32 04/04/18 16:00 Nasal Cannula 2.0 04/04/18 16:00 2.0 04/04/18 16:00 105 04/04/18 15:55 97.6 95 30 113/75 99 4.0 30 97.6 04/04/18 14:30 94 30 99 Full Face 30 04/04/18 14:26 4.0 30 04/04/18 14:00 97.6 95 37 113/75 100 Bi-pap 4.0 40 97.6 Intake and Output 04/04/18 04/05/18 19:00 07:00 Intake Total 75 ml 765 ml Output Total 1600 ml 730 ml Balance -1525 ml 35 ml Intake Oral 0 ml IV Total 75 ml 765 ml Output Urine Total 1600 ml 730 ml # Bowel Movements 2 1 Laboratory Tests Test 04/04/18 23:10 04/04/18 23:50 04/05/18 04:00 D-Dimer 2.05 mg/L FEU (0.00-0.49) H Ionized Calcium (Measured) 1.16 mmol/L (1.10-1.35) Pro-B-Type Natriuretic Peptide 703 pg/mL (0-125) H 842 pg/mL (0-125) H Total Protein (PEP) Pending Albumin (PEP) Pending Globulin (PEP) Pending Albumin/Globulin Ratio Pending 0.3 (1.0-2.7) L Chcgf-2-Nphwyfljx Pending Usbgn-6-Lmfrhceyd Pending Beta Globulins Pending Beta Gamma Globulin Pending PEP Abnormal Protein Bands Pending Protein Electrophoresis Interpret Pending Urine Total Protein Pending Urine Albumin (%) Pending Urine Llqvl-4-Bttyvyzrj (%) Pending Urine Pdcic-5-Dnviomfwk (%) Pending Urine Beta-Globulin (%) Pending Urine Gamma Globulin (%) Pending Ur Protein Electrophoresis M-Josesito Pending Urine Protein Electrophoresis Intrp Pending Sodium Level 148 MMOL/L (136-145) H Potassium Level 3.1 MMOL/L (3.5-5.1) L Chloride Level 112 MMOL/L (98-107) H Carbon Dioxide Level 31 MMOL/L (21-32) Anion Gap 5 mmol/L (5-15) Blood Urea Nitrogen 25 mg/dL (7-18) H Creatinine 0.6 MG/DL (0.55-1.30) Estimat Glomerular Filtration Rate > 60 mL/min (>60) Glucose Level 155 MG/DL (74-106) #H Hemoglobin A1c 7.8 % (4.3-6.0) H Calcium Level 9.1 MG/DL (8.5-10.1) Phosphorus Level 2.4 MG/DL (2.5-4.9) L Magnesium Level 1.6 MG/DL (1.8-2.4) L Iron Level 16 ug/dL (50-175) L Total Iron Binding Capacity 85 ug/dL (250-450) L Percent Iron Saturation 19 % (15-50) Unsaturated Iron Binding 69 ug/dL (112-346) L Ferritin 800 NG/ML (8-388) H Total Bilirubin 0.5 MG/DL (0.2-1.0) Gamma Glutamyl Transpeptidase 26 U/L (5-85) Aspartate Amino Transf (AST/SGOT) 21 U/L (15-37) Alanine Aminotransferase (ALT/SGPT) 38 U/L (12-78) Alkaline Phosphatase 104 U/L (46-116) C-Reactive Protein, Quantitative < 0.4 mg/dL (0.00-0.90) Total Protein 8.1 G/DL (6.4-8.2) Albumin 2.0 G/DL (3.4-5.0) L Globulin 6.1 g/dL Triglycerides Level 105 MG/DL (30-150) Cholesterol Level 67 MG/DL (< 200) LDL Cholesterol 42 mg/dL (<100) HDL Cholesterol 16 MG/DL (40-60) L Cholesterol/HDL Ratio 4.2 (3.3-4.4) Vitamin B12 Level 1923 PG/ML (193-986) H Folate 34.7 NG/ML (8.6-58.9) Thyroid Stimulating Hormone (TSH) 1.018 uiU/mL (0.358-3.740) Cortisol AM Sample Pending Height (Feet): 5 Height (Inches): 5.00 Weight (Pounds): 120 Medications Current Medications Medications (Trade) Dose Ordered Sig/Briseida Route PRN Reason Start Time Stop Time Status Last Admin Dose Admin Acetaminophen (Tylenol) 650 mg Q4H PRN ORAL Mild Pain/Temp > 100.5 04/04/18 15:04 05/04/18 14:59 Albuterol/ Ipratropium (Albuterol/ Ipratropium) 3 ml Q4H PRN HHN Shortness of Breath 04/04/18 22:45 04/09/18 22:44 Albuterol/ Ipratropium (Albuterol/ Ipratropium) 3 ml Q6HRT HHN 04/05/18 01:00 04/10/18 00:59 04/05/18 13:28 Aztreonam 1 gm/ Dextrose 55 ml @ 110 mls/hr Q8HR IVPB 04/04/18 22:00 04/11/18 21:59 04/05/18 13:07 Dextrose (Dextrose 50%) 25 ml STAT PRN IV Hypoglycemia 04/05/18 07:45 05/05/18 07:44 Dextrose (Dextrose 50%) 50 ml STAT PRN IV Hypoglycemia 04/05/18 07:45 05/05/18 07:44 Famotidine (Pepcid) 20 mg BID GT 04/04/18 18:00 05/04/18 17:59 04/05/18 08:03 Heparin Sodium (Porcine) (Heparin 5000 units/ml) 5,000 units EVERY 12 HOURS SUBQ 04/05/18 09:00 05/05/18 08:59 04/05/18 08:05 Insulin Aspart (NovoLOG) BEFORE MEALS AND HS SUBQ 04/05/18 11:30 05/05/18 11:29 Levofloxacin (Levaquin) 500 mg Q24H GT 04/05/18 17:00 04/12/18 16:59 Potassium Phosphate 30 mm/ Sodium Chloride 285 ml @ 47.5 mls/hr ONCE IV 04/05/18 13:00 04/05/18 18:59 Sodium Chloride 1,000 ml @ 50 mls/hr Q20H IV 04/05/18 15:00 05/04/18 14:59 Vancomycin HCl (Vanco rx to dose) 1 ea DAILY PRN MISC Per rx protocol 04/04/18 19:30 05/04/18 19:29 Vancomycin HCl 500 mg/Dextrose 110 ml @ 110 mls/hr Q12H IVPB 04/04/18 23:00 04/09/18 22:59 04/05/18 11:56 Assessment/Plan Problem List: (1) Multifocal pneumonia ICD Codes: J18.9 - Pneumonia, unspecified organism SNOMED: 624613398 (2) Respiratory failure ICD Codes: J96.90 - Respiratory failure, unspecified, unspecified whether with hypoxia or hypercapnia SNOMED: 630110053 (3) Pyelonephritis ICD Codes: N12 - Tubulo-interstitial nephritis, not specified as acute or chronic SNOMED: 73686650 (4) UTI (urinary tract infection) ICD Codes: N39.0 - Urinary tract infection, site not specified SNOMED: 99032981 (5) Acute renal failure ICD Codes: N17.9 - Acute kidney failure, unspecified SNOMED: 49716540 (6) Sepsis ICD Codes: A41.9 - Sepsis, unspecified organism SNOMED: 55087206 (7) Diabetes mellitus out of control ICD Codes: E11.65 - Type 2 diabetes mellitus with hyperglycemia SNOMED: 38879650, 995335059 (8) Proteinuria ICD Codes: R80.9 - Proteinuria, unspecified SNOMED: 51609540 (9) HCAP (healthcare-associated pneumonia) ICD Codes: J18.9 - Pneumonia, unspecified organism SNOMED: 056448504 (10) Decubitus skin ulcer ICD Codes: L89.90 - Pressure ulcer of unspecified site, unspecified stage SNOMED: 717732319 Assessment/Plan Acute hypoxemic and Chronic respiratory failure B pulmonary infiltrates, likely HCAP Elevated D-dimer Hypotention - resolved GRADY - improved Hypernatremia - improved Dementia/CVA NHR Dyphagia HTN, CAD PLAN: Optimize pulmonary hygiene/mobilize as tolerated PRN O2 PRN BiPAP Abx per ID RTC and PRN HHN's F/U Duplex and VQ Monitor volumes and renal function, gentle IVF F/U TTE DVT Px: Hep SQ ? TF"s DNAR/DNI, BiPAP Ok Continue to discuss GOC Yrn Buckley MD Apr 05, 2018 14:01
[2018-04-05 16:00] VITALS: BP 111/66
[2018-04-05] MEDS: Levofloxacin 500mg tab GT SCH (18:26)
[2018-04-05 20:00] VITALS: BP 131/69
--- NOTE | 2018-04-05 21:45 | Consultation ---
DATE OF CONSULTATION: 04/05/2018 INFECTIOUS DISEASE CONSULTATION CONSULTING PHYSICIAN: Jose Álvarez M.D. REQUESTING PHYSICIAN: Jamia Wu M.D. REASON FOR CONSULTATION: Pneumonia, urinary tract infection, and sepsis. Recommendation for antibiotics treatment for the patient with ceftriaxone allergy. HISTORY OF PRESENT ILLNESS: The patient is a 68-year-old male with past medical history of diabetes, hypertension, coronary artery disease, pneumonia, gastroesophageal reflux disease, CVA, and dementia was sent from his snf facility to [facility] emergency room for hypoxemia and low oxygen saturation. The patient has severe dementia and could not provide any good history. At the time of the arrival, his pulse was found to be elevated at 114 with low blood pressure of 99/67 and hypoxemic concerning for sepsis and pneumonia. The patient was started empirically on antibiotics in the emergency room. His urinalysis also showed evidence of infection and white count of 18.5 suggestive of sepsis. So, Infectious Disease consultation was requested for antibiotics treatment and further management. As of note, the patient is poor historian and cannot provide any history. History was mainly obtained from the medical record and nursing staff. PAST MEDICAL HISTORY: Significant for diabetes, hypertension, coronary artery disease, pneumonia, gastroesophageal reflux disease, CVA, and dementia. PAST SURGICAL HISTORY: Not on record. ALLERGIES: He is allergic to ceftriaxone, unknown of exact reaction. SOCIAL HISTORY: The patient lives at a snf facility. No recent drugs, tobacco, or alcohol. FAMILY HISTORY: Unable to obtain. REVIEW OF SYSTEMS: Unable to obtain. The patient is a poor historian. PHYSICAL EXAMINATION: VITAL SIGNS: Temperature 97.5, pulse 86, respirations 25, blood pressure 117/68, and O2 saturation 100% on 2 liter nasal cannula with FiO2 of 28%. GENERAL: An elderly male, lying in bed, on nebulizer treatment mask, alert, responsive, not in acute distress. HEENT: Normocephalic and atraumatic. Pupils are reactive to lights. Unable to assess oral mucosa due to breathing treatment mask. NECK: Supple. No lymphadenopathy. CARDIOVASCULAR: He is tachycardic. S1, S2 normal. No murmur. LUNGS: He had diminished breathing sounds at the bases with crackles. Normal breathing efforts. ABDOMEN: Soft, obese, nontender, and nondistended. G-tube feeding in site in the epigastric area with clean site. No rebound. No tenderness. EXTREMITY: No edema. No cyanosis. SKIN: He has bilateral hip pressure wounds, worse on the left side. It does not look infected with dry eschar on the left. He also had large sacral pressure wounds with beefy color granulating tissue at the base with no evidence of infection or foul smell or discharge. LABORATORY DATA: Labs showed white count of 18.5, hemoglobin of 9.9, and platelet count of 454,000. BUN of 25, creatinine of 0.6, and hemoglobin A1c of 7.8. Urinalysis showed +3 leukocyte esterase and too numerous to count WBC. Urine bacteria many. Urine culture is growing more than 100,000 colony gram-negative rods. IMAGING: Chest x-ray showed bilateral diffuse interstitial and airspace disease, pneumonia versus pulmonary edema. ASSESSMENT AND RECOMMENDATION: 1. Healthcare-acquired pneumonia with hypoxemia and bilateral infiltration. We will continue current antibiotics treatment with vancomycin, aztreonam, and levofloxacin and send sputum culture. We will deescalate antibiotics based on his sputum and blood culture result later. Monitor chest x-ray. Keep oxygen more than 90%. 2. Urinary tract infection. We will send urine culture. The patient is already on aztreonam and levofloxacin double coverage gram-negative rods. Pending urine culture results. 3. Sepsis due to the above. Continue triple antibiotics treatment for now pending blood culture and urine culture. 4. Diabetes, out of control. Recommend tight glycemic control to keep blood glucose between 100 to 140. 5. Decubitus skin wounds mainly on the hips, , and the sacrum. Wounds looks okay, not infected at this point. Continue local wound care as per the hospital protocol and off-loading as needed. Thank you for the consult. ID will continue to follow. Jose Ávlarez M.D. DR: LANE JOB#: [id number] CC:
[2018-04-05] MEDS: Vancomycin 750mg/NS 250ml 250 ML IVPB SCH (23:52)
[2018-04-06] VITALS: BP 128/75
--- NOTE | 2018-04-06 01:58 | Consultation ---
DATE OF CONSULTATION: 04/05/2018 PULMONARY CONSULTATION CONSULTING PHYSICIAN: Yrn Buckley M.D. REASON FOR CONSULTATION: Respiratory failure. REFERRING PHYSICIAN: Dr. Wu. HISTORY OF PRESENT ILLNESS: The patient is a very unfortunate 68-year-old male, care home resident with a history of prior CVA, dementia, dysphagia, status post PEG, multiple respiratory infections who presented with hypoxemia from a intermediate facility. In the ER, the patient was noted to have multifocal pneumonia and pyelonephritis. He was also concerned for evolving heart failure. The patient was initially placed on BiPAP given history of CO2 retention, but then was taken off BiPAP by myself ____ the floor, BiPAP was changed to p.r.n. at bedtime. He is DNI, but per report, BiPAP is okay. He has been started on antibiotics. Since presenting to the hospital, his T-max is 97.5. He is currently saturating well on two liters. He has had periods of tachypnea. White count was 18.5. ABG was 7.5/46/53/36/90. He had hypernatremia, which has improved with IV fluids. BUN was elevated, which also improved with IV fluids. Creatinine was normal. He has evidence of urinary tract infection as I stated. PAST MEDICAL HISTORY: 1. CVA/dementia. 2. Dysphagia, status post PEG. 3. Recurrent respiratory infections. 4. Chronic hypercapnia. 5. Diabetes. 6. CAD. 7. Hypertension. PAST SURGICAL HISTORY: Unknown. ALLERGIES: Rocephin. MEDICATIONS: Prior to admission, medications reviewed. SOCIAL HISTORY: He is care home resident. Otherwise, no known tobacco, alcohol, or drug history. FAMILY HISTORY: Unknown and unobtainable. REVIEW OF SYSTEMS: Unobtainable. PHYSICAL EXAMINATION: VITAL SIGNS: Temperature is 97, pulse 91, blood pressure 111/65, and respiratory rate 25. Incomplete Dictation Yrn Buckley M.D. DR: LORETTA JOB#: [id number] CC:
[2018-04-06] MEDS: Albuterol/Ipratropium 3ml neb HHN SCH ×4 (01:59→19:52)
[2018-04-06 04:00] VITALS: BP 102/64
[2018-04-06 05:04] LABS: HEMOGLOBIN 8.2 G/DL (14.2-18.0); MEAN CORPUSCULAR VOLUME 84 FL (80-99); PLATELET COUNT 423 K/UL (150-450); RED BLOOD COUNT 3.21 M/UL (4.70-6.10); RED CELL DISTRIBUTION WIDTH 15.6 % (11.6-14.8); WHITE BLOOD COUNT 12.9 K/UL (4.8-10.8)
[2018-04-06] MEDS: NovoLOG Insulin Flexpen SUBQ SCH ×4 (05:08→21:36)
[2018-04-06] MEDS: Aztreonam Inj 1 GM in D5W 55 ML IVPB SCH ×3 (05:08→21:37)
[2018-04-06 05:26] LABS: ALANINE AMINOTRANSFERASE 27 U/L (12-78); ALBUMIN 1.8 G/DL (3.4-5.0); ALBUMIN/GLOBULIN RATIO 0.3 (1.0-2.7); ALKALINE PHOSPHATASE 90 U/L (46-116); ANION GAP 5 mmol/L (5-15); ASPARTATE AMINO TRANSFERASE 18 U/L (15-37); BILIRUBIN,TOTAL 0.4 MG/DL (0.2-1.0); BLOOD UREA NITROGEN 15 mg/dL (7-18); CALCIUM 8.7 MG/DL (8.5-10.1); CARBON DIOXIDE 31 MMOL/L (21-32); CHLORIDE 109 MMOL/L (98-107); CREATININE 0.5 MG/DL (0.55-1.30); PHOSPHORUS 2.9 MG/DL (2.5-4.9); POTASSIUM 3.4 MMOL/L (3.5-5.1); SODIUM 145 MMOL/L (136-145)
--- NOTE | 2018-04-06 07:23 | General Progress Note ---
Assessment/Plan Problem List: (1) Diabetes mellitus out of control ICD Codes: E11.65 - Type 2 diabetes mellitus with hyperglycemia SNOMED: 67710165, 445826634 (2) Multifocal pneumonia ICD Codes: J18.9 - Pneumonia, unspecified organism SNOMED: 590927253 (3) Sepsis ICD Codes: A41.9 - Sepsis, unspecified organism SNOMED: 03133159 (4) Respiratory failure ICD Codes: J96.90 - Respiratory failure, unspecified, unspecified whether with hypoxia or hypercapnia SNOMED: 027614443 (5) Pyelonephritis ICD Codes: N12 - Tubulo-interstitial nephritis, not specified as acute or chronic SNOMED: 50692899 Assessment/Plan continue BG monitoring and Novolog sliding scale ac / hs no need for scheduled insulin order now Subjective ROS Limited/Unobtainable: Yes Allergies: Coded Allergies: CEFTRIAXONE (Verified Allergy, Unknown, 04/04/18) Subjective events noted Objective Last 24 Hour Vital Signs Date Time Temp Pulse Resp B/P (MAP) Pulse Ox O2 Delivery O2 Flow Rate FiO2 04/06/18 07:15 78 22 100 Nasal Cannula 2.0 28 04/06/18 07:10 Nasal Cannula 2.0 28 04/06/18 07:09 98 Nasal Cannula 2.0 28 04/06/18 07:08 83 23 98 Nasal Cannula 2.0 28 04/06/18 05:01 89 26 99 Full Face 35 04/06/18 04:00 85 04/06/18 04:00 Nasal Cannula 2.0 04/06/18 04:00 98.4 87 25 102/64 (77) 99 98.4 04/06/18 04:00 28 04/06/18 03:00 82 25 98 Facial 35 04/06/18 02:00 84 25 99 Bi-pap 35 04/06/18 01:59 82 25 97 Bi-pap 35 04/06/18 00:32 85 26 95 Facial 35 04/06/18 00:00 98.1 76 20 128/75 (92) 100 98.1 04/06/18 00:00 84 04/06/18 00:00 28 04/06/18 00:00 Nasal Cannula 2.0 04/05/18 22:30 88 32 97 Facial 35 04/05/18 20:00 97.5 85 22 131/69 (89) 98 97.5 04/05/18 20:00 Nasal Cannula 2.0 04/05/18 20:00 2.0 04/05/18 20:00 Nasal Cannula 2.0 28 04/05/18 20:00 84 04/05/18 20:00 88 20 99 Nasal Cannula 2.0 28 04/05/18 20:00 87 20 97 Nasal Cannula 2.0 28 04/05/18 19:30 98 Nasal Cannula 2.0 28 04/05/18 16:38 2.0 04/05/18 16:00 86 04/05/18 16:00 97.2 83 25 111/66 (81) 97 97.2 04/05/18 16:00 Nasal Cannula 2.0 04/05/18 13:30 83 28 98 Nasal Cannula 2.0 28 04/05/18 13:28 86 24 96 Nasal Cannula 2.0 28 04/05/18 12:00 Nasal Cannula 2.0 04/05/18 12:00 86 04/05/18 12:00 2.0 04/05/18 12:00 97.5 89 25 117/68 (84) 100 97.5 04/05/18 08:13 2.0 04/05/18 08:12 Nasal Cannula 2.0 04/05/18 08:00 89 04/05/18 07:58 97.0 91 25 111/65 (80) 100 97.0 04/05/18 07:30 90 28 96 Nasal Cannula 2.0 28 04/05/18 07:29 88 28 99 Nasal Cannula 2.0 28 04/05/18 07:25 88 28 95 Nasal Cannula 2.0 28 04/05/18 07:23 Nasal Cannula 2.0 28 Intake and Output 04/05/18 04/06/18 19:00 07:00 Intake Total 1040 ml Output Total 850 ml 980 ml Balance -850 ml 60 ml IV Total 1040 ml Output Urine Total 850 ml 980 ml Laboratory Tests 04/05/18 21:45: Vancomycin Level Trough 8.1 04/06/18 00:30: Urine Total Volume 24 Hours [Pending], Urine Creatinine 24 Hour [Pending], Urine Total Protein Timed [Pending], Urine Protein/Creatinine Ratio [Pending], Urine Albumin (%) [Pending], Urine [id number]-9-Dhgjyftpp (%) [Pending], Urine Alpha- 2-Globulins (%) [Pending], Urine Beta-Globulin (%) [Pending], Urine Gamma Globulin (%) [Pending], Urine Protein Electrophoresis Intrp [Pending] 04/06/18 04:10: White Blood Count 12.9H, Red Blood Count 3.21L, Hemoglobin 8.2L, Hematocrit 27.0L, Mean Corpuscular Volume 84, Mean Corpuscular Hemoglobin 25.4L, Mean Corpuscular Hemoglobin Concent 30.2L, Red Cell Distribution Width 15.6H, Platelet Count 423, Mean Platelet Volume 7.4, Neutrophils (%) (Auto) , Lymphocytes (%) (Auto) , Monocytes (%) (Auto) , Eosinophils (%) (Auto) , Basophils (%) (Auto) , Neutrophils % (Manual) [Pending], Lymphocytes % (Manual) [Pending], Platelet Estimate [Pending], Platelet Morphology [Pending], Sodium Level 145, Potassium Level 3.4L, Chloride Level 109H, Carbon Dioxide Level 31, Anion Gap 5, Blood Urea Nitrogen 15, Creatinine 0.5L, Estimat Glomerular Filtration Rate > 60, Glucose Level 110H, Calcium Level 8.7, Phosphorus Level 2.9, Magnesium Level 2.1, Total Bilirubin 0.4, Aspartate Amino Transf (AST/SGOT ) 18, Alanine Aminotransferase (ALT/SGPT) 27, Alkaline Phosphatase 90, Pro-B- Type Natriuretic Peptide 710H, Total Protein 7.7, Albumin 1.8L, Globulin 5.9, Albumin/Globulin Ratio 0.3L Height (Feet): 5 Height (Inches): 5.00 Weight (Pounds): 120 General Appearance: no apparent distress Neck: normal alignment Cardiovascular: normal rate Respiratory/Chest: decreased breath sounds Abdomen: normal bowel sounds Edema: 1+ Arm (L), 1+ Arm (R), 1+ Leg (L), 1+ Leg (R), 1+ Pedal (L), 1+ Pedal ( R), 1+ Generalized Objective Current Medications Medications (Trade) Dose Ordered Sig/Briseida Route PRN Reason Start Time Stop Time Status Last Admin Dose Admin Acetaminophen (Tylenol) 650 mg Q4H PRN ORAL Mild Pain/Temp > 100.5 04/04/18 15:04 05/04/18 14:59 Albuterol/ Ipratropium (Albuterol/ Ipratropium) 3 ml Q4H PRN HHN Shortness of Breath 04/04/18 22:45 04/09/18 22:44 Albuterol/ Ipratropium (Albuterol/ Ipratropium) 3 ml Q6HRT HHN 04/05/18 01:00 04/10/18 00:59 04/06/18 07:07 Aztreonam 1 gm/ Dextrose 55 ml @ 110 mls/hr Q8HR IVPB 04/04/18 22:00 04/11/18 21:59 04/06/18 05:08 Dextrose (Dextrose 50%) 25 ml STAT PRN IV Hypoglycemia 04/05/18 07:45 05/05/18 07:44 Dextrose (Dextrose 50%) 50 ml STAT PRN IV Hypoglycemia 04/05/18 07:45 05/05/18 07:44 Famotidine (Pepcid) 20 mg BID GT 04/04/18 18:00 05/04/18 17:59 04/05/18 18:26 Heparin Sodium (Porcine) (Heparin 5000 units/ml) 5,000 units EVERY 12 HOURS SUBQ 04/05/18 09:00 05/05/18 08:59 04/05/18 20:35 Insulin Aspart (NovoLOG) BEFORE MEALS AND HS SUBQ 04/05/18 11:30 05/05/18 11:29 04/05/18 20:45 Levofloxacin (Levaquin) 500 mg Q24H GT 04/05/18 17:00 04/12/18 16:59 04/05/18 18:26 Sodium Chloride 1,000 ml @ 50 mls/hr Q20H IV 04/05/18 15:00 05/04/18 14:59 04/05/18 19:42 Vancomycin HCl (Vanco rx to dose) 1 ea DAILY PRN MISC Per rx protocol 04/04/18 19:30 05/04/18 19:29 Vancomycin/Sodium Chloride 250 ml @ 167 mls/hr Q12H IVPB 04/05/18 23:00 04/10/18 22:59 04/05/18 23:52 Item Value Date Time Bedside Blood Glucose 113 mg/dl 04/06/18 0508 Bedside Blood Glucose 119 mg/dl 04/06/18 0000 Bedside Blood Glucose 143 mg/dl H 04/05/18 2045 Bedside Blood Glucose 115 mg/dl 04/05/18 1813 Bedside Blood Glucose 175 mg/dl H 04/05/18 1210 Bedside Blood Glucose 160 mg/dl H 04/05/18 0600 Tello Parker MD Apr 06, 2018 07:23
[2018-04-06 08:00] VITALS: BP 102/61
[2018-04-06] MEDS: Heparin 5000 units/ml inj SUBQ SCH ×2 (09:23→21:38)
--- NOTE | 2018-04-06 10:05 | General Progress Note ---
Assessment/Plan Problem List: (1) Respiratory failure ICD Codes: J96.90 - Respiratory failure, unspecified, unspecified whether with hypoxia or hypercapnia SNOMED: 790640389 (2) Diabetes mellitus out of control ICD Codes: E11.65 - Type 2 diabetes mellitus with hyperglycemia SNOMED: 35730281, 229768994 (3) Multifocal pneumonia ICD Codes: J18.9 - Pneumonia, unspecified organism SNOMED: 523130596 (4) Acute renal failure ICD Codes: N17.9 - Acute kidney failure, unspecified SNOMED: 75862268 (5) UTI (urinary tract infection) ICD Codes: N39.0 - Urinary tract infection, site not specified SNOMED: 47767857 Status: unchanged Assessment/Plan o2 pulm tx abx ot pt diet cbc bmp am Subjective Constitutional: Reports: weakness Allergies: Coded Allergies: CEFTRIAXONE (Verified Allergy, Unknown, 04/04/18) All Systems: reviewed and negative except above Subjective o2nc sleepy Objective Last 24 Hour Vital Signs Date Time Temp Pulse Resp B/P (MAP) Pulse Ox O2 Delivery O2 Flow Rate FiO2 04/06/18 08:00 2.0 04/06/18 08:00 97.9 84 16 102/61 (75) 94 97.9 04/06/18 08:00 Nasal Cannula 2.0 04/06/18 07:15 78 22 100 Nasal Cannula 2.0 28 04/06/18 07:10 Nasal Cannula 2.0 28 04/06/18 07:09 98 Nasal Cannula 2.0 28 04/06/18 07:08 83 23 98 Nasal Cannula 2.0 28 04/06/18 05:01 89 26 99 Full Face 35 04/06/18 04:00 85 04/06/18 04:00 Nasal Cannula 2.0 04/06/18 04:00 98.4 87 25 102/64 (77) 99 98.4 04/06/18 04:00 28 04/06/18 03:00 82 25 98 Facial 35 04/06/18 02:00 84 25 99 Bi-pap 35 04/06/18 01:59 82 25 97 Bi-pap 35 04/06/18 00:32 85 26 95 Facial 35 04/06/18 00:00 98.1 76 20 128/75 (92) 100 98.1 04/06/18 00:00 84 04/06/18 00:00 28 04/06/18 00:00 Nasal Cannula 2.0 04/05/18 22:30 88 32 97 Facial 35 04/05/18 20:00 97.5 85 22 131/69 (89) 98 97.5 04/05/18 20:00 Nasal Cannula 2.0 04/05/18 20:00 2.0 04/05/18 20:00 Nasal Cannula 2.0 28 04/05/18 20:00 84 04/05/18 20:00 88 20 99 Nasal Cannula 2.0 28 04/05/18 20:00 87 20 97 Nasal Cannula 2.0 28 04/05/18 19:30 98 Nasal Cannula 2.0 28 04/05/18 16:38 2.0 04/05/18 16:00 86 04/05/18 16:00 97.2 83 25 111/66 (81) 97 97.2 04/05/18 16:00 Nasal Cannula 2.0 04/05/18 13:30 83 28 98 Nasal Cannula 2.0 28 04/05/18 13:28 86 24 96 Nasal Cannula 2.0 28 04/05/18 12:00 Nasal Cannula 2.0 04/05/18 12:00 86 04/05/18 12:00 2.0 04/05/18 12:00 97.5 89 25 117/68 (84) 100 97.5 Intake and Output 04/05/18 04/06/18 19:00 07:00 Intake Total 1040 ml Output Total 850 ml 980 ml Balance -850 ml 60 ml IV Total 1040 ml Output Urine Total 850 ml 980 ml Laboratory Tests 04/05/18 21:45: Vancomycin Level Trough 8.1 04/06/18 00:30: Urine Total Volume 24 Hours [Pending], Urine Creatinine 24 Hour [Pending], Urine Total Protein Timed [Pending], Urine Protein/Creatinine Ratio [Pending], Urine Albumin (%) [Pending], Urine Rdwpw-1-Nffepcpgk (%) [Pending], Urine Alpha- 2-Globulins (%) [Pending], Urine Beta-Globulin (%) [Pending], Urine Gamma Globulin (%) [Pending], Urine Protein Electrophoresis Intrp [Pending] 04/06/18 04:10: White Blood Count 12.9H, Red Blood Count 3.21L, Hemoglobin 8.2L, Hematocrit 27.0L, Mean Corpuscular Volume 84, Mean Corpuscular Hemoglobin 25.4L, Mean Corpuscular Hemoglobin Concent 30.2L, Red Cell Distribution Width 15.6H, Platelet Count 423, Mean Platelet Volume 7.4, Neutrophils (%) (Auto) , Lymphocytes (%) (Auto) , Monocytes (%) (Auto) , Eosinophils (%) (Auto) , Basophils (%) (Auto) , Differential Total Cells Counted 100, Neutrophils % ( Manual) 86H, Lymphocytes % (Manual) 13L, Monocytes % (Manual) 1, Eosinophils % ( Manual) 0, Basophils % (Manual) 0, Band Neutrophils 0, Platelet Estimate Adequate, Platelet Morphology Normal, Hypochromasia 1+, Anisocytosis 1+, Sodium Level 145, Potassium Level 3.4L, Chloride Level 109H, Carbon Dioxide Level 31, Anion Gap 5, Blood Urea Nitrogen 15, Creatinine 0.5L, Estimat Glomerular Filtration Rate > 60, Glucose Level 110H, Calcium Level 8.7, Phosphorus Level 2.9, Magnesium Level 2.1, Total Bilirubin 0.4, Aspartate Amino Transf (AST/SGOT ) 18, Alanine Aminotransferase (ALT/SGPT) 27, Alkaline Phosphatase 90, Pro-B- Type Natriuretic Peptide 710H, Total Protein 7.7, Albumin 1.8L, Globulin 5.9, Albumin/Globulin Ratio 0.3L Height (Feet): 5 Height (Inches): 5.00 Weight (Pounds): 120 General Appearance: lethargic EENT: normal ENT inspection Neck: normal alignment Cardiovascular: normal peripheral pulses, normal rate, regular rhythm Respiratory/Chest: chest wall non-tender, decreased breath sounds Abdomen: normal bowel sounds, non tender, soft Extremities: normal inspection Edema: no edema noted Arm (L), no edema noted Arm (R), no edema noted Leg (L), no edema noted Leg (R), no edema noted Pedal (L), no edema noted Pedal (R), no edema noted Generalized Neurologic: motor weakness Skin: normal pigmentation, warm/dry Franky Bermudez DO Apr 06, 2018 10:05
--- NOTE | 2018-04-06 11:45 | Infectious Diseases Prog Note ---
Assessment/Plan Assessment/Plan A: Sepsis Pneumonia UTI with Proteus Advanced dementia DM HPN P; Continue Vancomycin & Azactam Case was D/W microbiology lab Subjective ROS Limited/Unobtainable: Yes Allergies: Coded Allergies: CEFTRIAXONE (Verified Allergy, Unknown, 04/04/18) Objective Vital Signs Last 24 Hour Vital Signs Date Time Temp Pulse Resp B/P (MAP) Pulse Ox O2 Delivery O2 Flow Rate FiO2 04/06/18 08:00 2.0 04/06/18 08:00 82 04/06/18 08:00 97.9 84 16 102/61 (75) 94 97.9 04/06/18 08:00 Nasal Cannula 2.0 04/06/18 07:15 78 22 100 Nasal Cannula 2.0 28 04/06/18 07:10 Nasal Cannula 2.0 28 04/06/18 07:09 98 Nasal Cannula 2.0 28 04/06/18 07:08 83 23 98 Nasal Cannula 2.0 28 04/06/18 05:01 89 26 99 Full Face 35 04/06/18 04:00 85 04/06/18 04:00 Nasal Cannula 2.0 04/06/18 04:00 98.4 87 25 102/64 (77) 99 98.4 04/06/18 04:00 28 04/06/18 03:00 82 25 98 Facial 35 04/06/18 02:00 84 25 99 Bi-pap 35 04/06/18 01:59 82 25 97 Bi-pap 35 04/06/18 00:32 85 26 95 Facial 35 04/06/18 00:00 98.1 76 20 128/75 (92) 100 98.1 04/06/18 00:00 84 04/06/18 00:00 28 04/06/18 00:00 Nasal Cannula 2.0 04/05/18 22:30 88 32 97 Facial 35 04/05/18 20:00 97.5 85 22 131/69 (89) 98 97.5 04/05/18 20:00 Nasal Cannula 2.0 04/05/18 20:00 2.0 04/05/18 20:00 Nasal Cannula 2.0 28 04/05/18 20:00 84 04/05/18 20:00 88 20 99 Nasal Cannula 2.0 28 04/05/18 20:00 87 20 97 Nasal Cannula 2.0 28 04/05/18 19:30 98 Nasal Cannula 2.0 28 04/05/18 16:38 2.0 04/05/18 16:00 86 04/05/18 16:00 97.2 83 25 111/66 (81) 97 97.2 04/05/18 16:00 Nasal Cannula 2.0 04/05/18 13:30 83 28 98 Nasal Cannula 2.0 28 04/05/18 13:28 86 24 96 Nasal Cannula 2.0 28 04/05/18 12:00 Nasal Cannula 2.0 04/05/18 12:00 86 04/05/18 12:00 2.0 04/05/18 12:00 97.5 89 25 117/68 (84) 100 97.5 Height (Feet): 5 Height (Inches): 5.00 Weight (Pounds): 120 HEENT: mucous membranes moist Respiratory/Chest: lungs clear Cardiovascular: normal rate Abdomen: soft, non tender, other - GT feeding Genitourinary: other - Beltran catheter Extremities: no edema Neurologic/Psychiatric: other - poor responsive, barely opens eyes Microbiology Date/Time Source Procedure Growth Status 04/04/18 10:50 Blood Blood Culture - Preliminary NO GROWTH AFTER 24 HOURS Resulted 04/04/18 10:45 Blood Blood Culture - Preliminary NO GROWTH AFTER 24 HOURS Resulted 04/04/18 10:55 Nasal Nares MRSA Culture - Final NO METHICILLIN RESISTANT STAPH AUREUS... Complete 04/04/18 10:45 Urine,Clean Catch Urine Culture - Preliminary Proteus Mirabilis Resulted 04/04/18 10:55 Rectum VRE Culture - Final NO VANCOMYCIN RESISTANT ENTEROCOCCUS ... Complete 04/04/18 10:55 Rectum - Final NO CARBAPENEM-RESISTANT ENTEROBACTERI... Complete Laboratory Tests Test 04/05/18 21:45 04/06/18 00:30 04/06/18 04:10 Vancomycin Level Trough 8.1 ug/mL (5.0-12.0) Urine Total Volume 24 Hours Pending Urine Creatinine 24 Hour Pending Urine Total Protein Timed Pending Urine Protein/Creatinine Ratio Pending Urine Albumin (%) Pending Urine Oxblj-0-Rrlmralym (%) Pending Urine Iiakj-0-Oqfrhsbxs (%) Pending Urine Beta-Globulin (%) Pending Urine Gamma Globulin (%) Pending Urine Protein Electrophoresis Intrp Pending White Blood Count 12.9 K/UL (4.8-10.8) H Red Blood Count 3.21 M/UL (4.70-6.10) L Hemoglobin 8.2 G/DL (14.2-18.0) L Hematocrit 27.0 % (42.0-52.0) L Mean Corpuscular Volume 84 FL (80-99) Mean Corpuscular Hemoglobin 25.4 PG (27.0-31.0) L Mean Corpuscular Hemoglobin Concent 30.2 G/DL (32.0-36.0) L Red Cell Distribution Width 15.6 % (11.6-14.8) H Platelet Count 423 K/UL (150-450) Mean Platelet Volume 7.4 FL (6.5-10.1) Neutrophils (%) (Auto) % (45.0-75.0) Lymphocytes (%) (Auto) % (20.0-45.0) Monocytes (%) (Auto) % (1.0-10.0) Eosinophils (%) (Auto) % (0.0-3.0) Basophils (%) (Auto) % (0.0-2.0) Differential Total Cells Counted 100 Neutrophils % (Manual) 86 % (45-75) H Lymphocytes % (Manual) 13 % (20-45) L Monocytes % (Manual) 1 % (1-10) Eosinophils % (Manual) 0 % (0-3) Basophils % (Manual) 0 % (0-2) Band Neutrophils 0 % (0-8) Platelet Estimate Adequate Platelet Morphology Normal Hypochromasia 1+ Anisocytosis 1+ Sodium Level 145 MMOL/L (136-145) Potassium Level 3.4 MMOL/L (3.5-5.1) L Chloride Level 109 MMOL/L (98-107) H Carbon Dioxide Level 31 MMOL/L (21-32) Anion Gap 5 mmol/L (5-15) Blood Urea Nitrogen 15 mg/dL (7-18) Creatinine 0.5 MG/DL (0.55-1.30) L Estimat Glomerular Filtration Rate > 60 mL/min (>60) Glucose Level 110 MG/DL (74-106) H Calcium Level 8.7 MG/DL (8.5-10.1) Phosphorus Level 2.9 MG/DL (2.5-4.9) Magnesium Level 2.1 MG/DL (1.8-2.4) Total Bilirubin 0.4 MG/DL (0.2-1.0) Aspartate Amino Transf (AST/SGOT) 18 U/L (15-37) Alanine Aminotransferase (ALT/SGPT) 27 U/L (12-78) Alkaline Phosphatase 90 U/L (46-116) Pro-B-Type Natriuretic Peptide 710 pg/mL (0-125) H Total Protein 7.7 G/DL (6.4-8.2) Albumin 1.8 G/DL (3.4-5.0) L Globulin 5.9 g/dL Albumin/Globulin Ratio 0.3 (1.0-2.7) L Current Medications Medications (Trade) Dose Ordered Sig/Briseida Route PRN Reason Start Time Stop Time Status Last Admin Dose Admin Acetaminophen (Tylenol) 650 mg Q4H PRN ORAL Mild Pain/Temp > 100.5 04/04/18 15:04 05/04/18 14:59 Albuterol/ Ipratropium (Albuterol/ Ipratropium) 3 ml Q4H PRN HHN Shortness of Breath 04/04/18 22:45 04/09/18 22:44 Albuterol/ Ipratropium (Albuterol/ Ipratropium) 3 ml Q6HRT HHN 04/05/18 01:00 04/10/18 00:59 04/06/18 07:07 Aztreonam 1 gm/ Dextrose 55 ml @ 110 mls/hr Q8HR IVPB 04/04/18 22:00 04/11/18 21:59 04/06/18 05:08 Dextrose (Dextrose 50%) 25 ml STAT PRN IV Hypoglycemia 04/05/18 07:45 05/05/18 07:44 Dextrose (Dextrose 50%) 50 ml STAT PRN IV Hypoglycemia 04/05/18 07:45 05/05/18 07:44 Famotidine (Pepcid) 20 mg BID GT 04/04/18 18:00 05/04/18 17:59 04/06/18 09:17 Heparin Sodium (Porcine) (Heparin 5000 units/ml) 5,000 units EVERY 12 HOURS SUBQ 04/05/18 09:00 05/05/18 08:59 04/06/18 09:23 Insulin Aspart (NovoLOG) BEFORE MEALS AND HS SUBQ 04/05/18 11:30 05/05/18 11:29 04/05/18 20:45 Levofloxacin (Levaquin) 500 mg Q24H GT 04/05/18 17:00 04/12/18 16:59 04/05/18 18:26 Potassium Chloride 100 ml @ 100 mls/hr Q1HR IVPB 04/06/18 12:00 04/06/18 13:59 Sodium Chloride 1,000 ml @ 50 mls/hr Q20H IV 04/05/18 15:00 05/04/18 14:59 04/05/18 19:42 Vancomycin HCl (Vanco rx to dose) 1 ea DAILY PRN MISC Per rx protocol 04/04/18 19:30 05/04/18 19:29 Vancomycin/Sodium Chloride 250 ml @ 167 mls/hr Q12H IVPB 04/05/18 23:00 04/10/18 22:59 04/05/18 23:52 Herson Palmer MD Apr 06, 2018 11:45
[2018-04-06 12:00] VITALS: BP 120/66
--- NOTE | 2018-04-06 12:20 | Nephrology Progress Note ---
Assessment/Plan Problem List: (1) Respiratory failure (2) Diabetes mellitus out of control (3) Acute renal failure (4) Proteinuria Assessment Acute respiratory failure- Hypoxia - Renal failure- Proteinuria- Hypoalbuminemia Anemia- UTI- Cachexia , Malnutrition- PEG- HypoTension Plan Fluid challenge- respiratory support- Antibiotics Monitor renal parameters K Phos Mag supplement as needed per orders Subjective ROS Limited/Unobtainable: No Constitutional: Reports: malaise Objective Objective Last 24 Hour Vital Signs Date Time Temp Pulse Resp B/P (MAP) Pulse Ox O2 Delivery O2 Flow Rate FiO2 04/06/18 08:00 2.0 04/06/18 08:00 82 04/06/18 08:00 97.9 84 16 102/61 (75) 94 97.9 04/06/18 08:00 Nasal Cannula 2.0 04/06/18 07:15 78 22 100 Nasal Cannula 2.0 04/06/18 07:10 Nasal Cannula 2.0 28 04/06/18 07:09 98 Nasal Cannula 2.0 28 04/06/18 07:08 83 23 98 Nasal Cannula 2.0 28 04/06/18 05:01 89 26 99 Full Face 35 04/06/18 04:00 85 04/06/18 04:00 Nasal Cannula 2.0 04/06/18 04:00 98.4 87 25 102/64 (77) 99 98.4 04/06/18 04:00 28 04/06/18 03:00 82 25 98 Facial 35 04/06/18 02:00 84 25 99 Bi-pap 35 04/06/18 01:59 82 25 97 Bi-pap 35 04/06/18 00:32 85 26 95 Facial 35 04/06/18 00:00 98.1 76 20 128/75 (92) 100 98.1 04/06/18 00:00 84 04/06/18 00:00 28 04/06/18 00:00 Nasal Cannula 2.0 04/05/18 22:30 88 32 97 Facial 35 04/05/18 20:00 97.5 85 22 131/69 (89) 98 97.5 04/05/18 20:00 Nasal Cannula 2.0 04/05/18 20:00 2.0 04/05/18 20:00 Nasal Cannula 2.0 28 04/05/18 20:00 84 04/05/18 20:00 88 20 99 Nasal Cannula 2.0 28 04/05/18 20:00 87 20 97 Nasal Cannula 2.0 28 04/05/18 19:30 98 Nasal Cannula 2.0 28 04/05/18 16:38 2.0 04/05/18 16:00 86 04/05/18 16:00 97.2 83 25 111/66 (81) 97 97.2 04/05/18 16:00 Nasal Cannula 2.0 04/05/18 13:30 83 28 98 Nasal Cannula 2.0 28 04/05/18 13:28 86 24 96 Nasal Cannula 2.0 28 Intake and Output 04/05/18 04/06/18 19:00 07:00 Intake Total 1040 ml Output Total 850 ml 980 ml Balance -850 ml 60 ml IV Total 1040 ml Output Urine Total 850 ml 980 ml Laboratory Tests 04/05/18 21:45: Vancomycin Level Trough 8.1 04/06/18 00:30: Urine Total Volume 24 Hours [Pending], Urine Creatinine 24 Hour [Pending], Urine Total Protein Timed [Pending], Urine Protein/Creatinine Ratio [Pending], Urine Albumin (%) [Pending], Urine Mbffh-8-Xotkcgbsk (%) [Pending], Urine Alpha- 2-Globulins (%) [Pending], Urine Beta-Globulin (%) [Pending], Urine Gamma Globulin (%) [Pending], Urine Protein Electrophoresis Intrp [Pending] 04/06/18 04:10: White Blood Count 12.9H, Red Blood Count 3.21L, Hemoglobin 8.2L, Hematocrit 27.0L, Mean Corpuscular Volume 84, Mean Corpuscular Hemoglobin 25.4L, Mean Corpuscular Hemoglobin Concent 30.2L, Red Cell Distribution Width 15.6H, Platelet Count 423, Mean Platelet Volume 7.4, Neutrophils (%) (Auto) , Lymphocytes (%) (Auto) , Monocytes (%) (Auto) , Eosinophils (%) (Auto) , Basophils (%) (Auto) , Differential Total Cells Counted 100, Neutrophils % ( Manual) 86H, Lymphocytes % (Manual) 13L, Monocytes % (Manual) 1, Eosinophils % ( Manual) 0, Basophils % (Manual) 0, Band Neutrophils 0, Platelet Estimate Adequate, Platelet Morphology Normal, Hypochromasia 1+, Anisocytosis 1+, Sodium Level 145, Potassium Level 3.4L, Chloride Level 109H, Carbon Dioxide Level 31, Anion Gap 5, Blood Urea Nitrogen 15, Creatinine 0.5L, Estimat Glomerular Filtration Rate > 60, Glucose Level 110H, Calcium Level 8.7, Phosphorus Level 2.9, Magnesium Level 2.1, Total Bilirubin 0.4, Aspartate Amino Transf (AST/SGOT ) 18, Alanine Aminotransferase (ALT/SGPT) 27, Alkaline Phosphatase 90, Pro-B- Type Natriuretic Peptide 710H, Total Protein 7.7, Albumin 1.8L, Globulin 5.9, Albumin/Globulin Ratio 0.3L Height (Feet): 5 Height (Inches): 5.00 Weight (Pounds): 120 General Appearance: no apparent distress Cardiovascular: normal rate Respiratory/Chest: decreased breath sounds Abdomen: distended Chava Dwyer MD Apr 06, 2018 12:20
--- NOTE | 2018-04-06 12:48 | Pulmonology Progress Note ---
Assessment/Plan Problems: (1) Multifocal pneumonia (2) Respiratory failure (3) Pyelonephritis (4) UTI (urinary tract infection) (5) Acute renal failure (6) Sepsis (7) Diabetes mellitus out of control (8) Proteinuria (9) HCAP (healthcare-associated pneumonia) (10) Decubitus skin ulcer Assessment/Plan Acute hypoxemic and Chronic respiratory failure B pulmonary infiltrates, likely HCAP Elevated D-dimer Hypotension - resolved GRADY - improved Hypernatremia - improved Dementia/CVA NHR Dyphagia HTN, CAD PLAN: Optimize pulmonary hygiene/mobilize as tolerated PRN O2 D/C BiPAP order Abx per ID RTC and PRN HHN's F/U Duplex and VQ Monitor volumes and renal function DVT Px: Hep SQ TF's DNAR/DNI, BiPAP Ok Continue to discuss GOC Subjective Allergies: Coded Allergies: CEFTRIAXONE (Verified Allergy, Unknown, 04/04/18) Subjective AFVSS, stable on 2L No cough, no SOB, no wheezing, no F/C Objective Last 24 Hour Vital Signs Date Time Temp Pulse Resp B/P (MAP) Pulse Ox O2 Delivery O2 Flow Rate FiO2 04/06/18 08:00 2.0 04/06/18 08:00 82 04/06/18 08:00 97.9 84 16 102/61 (75) 94 97.9 04/06/18 08:00 Nasal Cannula 2.0 04/06/18 07:15 78 22 100 Nasal Cannula 2.0 28 04/06/18 07:10 Nasal Cannula 2.0 28 04/06/18 07:09 98 Nasal Cannula 2.0 28 04/06/18 07:08 83 23 98 Nasal Cannula 2.0 28 04/06/18 05:01 89 26 99 Full Face 35 04/06/18 04:00 85 04/06/18 04:00 Nasal Cannula 2.0 04/06/18 04:00 98.4 87 25 102/64 (77) 99 98.4 04/06/18 04:00 28 04/06/18 03:00 82 25 98 Facial 35 04/06/18 02:00 84 25 99 Bi-pap 35 04/06/18 01:59 82 25 97 Bi-pap 35 04/06/18 00:32 85 26 95 Facial 35 04/06/18 00:00 98.1 76 20 128/75 (92) 100 98.1 04/06/18 00:00 84 04/06/18 00:00 28 04/06/18 00:00 Nasal Cannula 2.0 04/05/18 22:30 88 32 97 Facial 35 04/05/18 20:00 97.5 85 22 131/69 (89) 98 97.5 04/05/18 20:00 Nasal Cannula 2.0 04/05/18 20:00 2.0 04/05/18 20:00 Nasal Cannula 2.0 28 04/05/18 20:00 84 04/05/18 20:00 88 20 99 Nasal Cannula 2.0 28 04/05/18 20:00 87 20 97 Nasal Cannula 2.0 28 04/05/18 19:30 98 Nasal Cannula 2.0 28 04/05/18 16:38 2.0 04/05/18 16:00 86 04/05/18 16:00 97.2 83 25 111/66 (81) 97 97.2 04/05/18 16:00 Nasal Cannula 2.0 04/05/18 13:30 83 28 98 Nasal Cannula 2.0 28 04/05/18 13:28 86 24 96 Nasal Cannula 2.0 28 Intake and Output 04/05/18 04/06/18 19:00 07:00 Intake Total 1040 ml Output Total 850 ml 980 ml Balance -850 ml 60 ml IV Total 1040 ml Output Urine Total 850 ml 980 ml General Appearance: cachetic, other - demented HEENT: normocephalic, atraumatic, anicteric, mucous membranes moist Respiratory/Chest: chest wall non-tender, lungs clear, normal breath sounds, no respiratory distress, no accessory muscle use Cardiovascular: normal peripheral pulses, normal rate, regular rhythm Abdomen: normal bowel sounds, soft, non tender, no organomegaly, non distended , no mass, other - GT Extremities: no cyanosis, no clubbing, no edema Microbiology Date/Time Source Procedure Growth Status 04/04/18 10:50 Blood Blood Culture - Preliminary NO GROWTH AFTER 24 HOURS Resulted 04/04/18 10:45 Blood Blood Culture - Preliminary NO GROWTH AFTER 24 HOURS Resulted 04/04/18 10:55 Nasal Nares MRSA Culture - Final NO METHICILLIN RESISTANT STAPH AUREUS... Complete 04/04/18 10:45 Urine,Clean Catch Urine Culture - Preliminary Proteus Mirabilis Resulted 04/04/18 10:55 Rectum VRE Culture - Final NO VANCOMYCIN RESISTANT ENTEROCOCCUS ... Complete 04/04/18 10:55 Rectum - Final NO CARBAPENEM-RESISTANT ENTEROBACTERI... Complete Laboratory Tests 04/05/18 21:45: Vancomycin Level Trough 8.1 04/06/18 00:30: Urine Total Volume 24 Hours [Pending], Urine Creatinine 24 Hour [Pending], Urine Total Protein Timed [Pending], Urine Protein/Creatinine Ratio [Pending], Urine Albumin (%) [Pending], Urine Gygbc-5-Lesjlqrcf (%) [Pending], Urine Alpha- 2-Globulins (%) [Pending], Urine Beta-Globulin (%) [Pending], Urine Gamma Globulin (%) [Pending], Urine Protein Electrophoresis Intrp [Pending] 04/06/18 04:10: White Blood Count 12.9H, Red Blood Count 3.21L, Hemoglobin 8.2L, Hematocrit 27.0L, Mean Corpuscular Volume 84, Mean Corpuscular Hemoglobin 25.4L, Mean Corpuscular Hemoglobin Concent 30.2L, Red Cell Distribution Width 15.6H, Platelet Count 423, Mean Platelet Volume 7.4, Neutrophils (%) (Auto) , Lymphocytes (%) (Auto) , Monocytes (%) (Auto) , Eosinophils (%) (Auto) , Basophils (%) (Auto) , Differential Total Cells Counted 100, Neutrophils % ( Manual) 86H, Lymphocytes % (Manual) 13L, Monocytes % (Manual) 1, Eosinophils % ( Manual) 0, Basophils % (Manual) 0, Band Neutrophils 0, Platelet Estimate Adequate, Platelet Morphology Normal, Hypochromasia 1+, Anisocytosis 1+, Sodium Level 145, Potassium Level 3.4L, Chloride Level 109H, Carbon Dioxide Level 31, Anion Gap 5, Blood Urea Nitrogen 15, Creatinine 0.5L, Estimat Glomerular Filtration Rate > 60, Glucose Level 110H, Calcium Level 8.7, Phosphorus Level 2.9, Magnesium Level 2.1, Total Bilirubin 0.4, Aspartate Amino Transf (AST/SGOT ) 18, Alanine Aminotransferase (ALT/SGPT) 27, Alkaline Phosphatase 90, Pro-B- Type Natriuretic Peptide 710H, Total Protein 7.7, Albumin 1.8L, Globulin 5.9, Albumin/Globulin Ratio 0.3L Current Medications Medications (Trade) Dose Ordered Sig/Briseida Route PRN Reason Start Time Stop Time Status Last Admin Dose Admin Acetaminophen (Tylenol) 650 mg Q4H PRN ORAL Mild Pain/Temp > 100.5 04/04/18 15:04 05/04/18 14:59 Albuterol/ Ipratropium (Albuterol/ Ipratropium) 3 ml Q4H PRN HHN Shortness of Breath 04/04/18 22:45 04/09/18 22:44 Albuterol/ Ipratropium (Albuterol/ Ipratropium) 3 ml Q6HRT HHN 04/05/18 01:00 04/10/18 00:59 04/06/18 07:07 Aztreonam 1 gm/ Dextrose 55 ml @ 110 mls/hr Q8HR IVPB 04/04/18 22:00 04/11/18 21:59 04/06/18 05:08 Dextrose (Dextrose 50%) 25 ml STAT PRN IV Hypoglycemia 04/05/18 07:45 05/05/18 07:44 Dextrose (Dextrose 50%) 50 ml STAT PRN IV Hypoglycemia 04/05/18 07:45 05/05/18 07:44 Famotidine (Pepcid) 20 mg BID GT 04/04/18 18:00 05/04/18 17:59 04/06/18 09:17 Heparin Sodium (Porcine) (Heparin 5000 units/ml) 5,000 units EVERY 12 HOURS SUBQ 04/05/18 09:00 05/05/18 08:59 04/06/18 09:23 Insulin Aspart (NovoLOG) BEFORE MEALS AND HS SUBQ 04/05/18 11:30 05/05/18 11:29 04/05/18 20:45 Levofloxacin (Levaquin) 500 mg Q24H GT 04/05/18 17:00 04/12/18 16:59 04/05/18 18:26 Potassium Chloride 100 ml @ 100 mls/hr Q1HR IVPB 04/06/18 12:00 04/06/18 13:59 04/06/18 12:04 Sodium Chloride 1,000 ml @ 50 mls/hr Q20H IV 04/05/18 15:00 05/04/18 14:59 04/05/18 19:42 Vancomycin HCl (Vanco rx to dose) 1 ea DAILY PRN MISC Per rx protocol 04/04/18 19:30 05/04/18 19:29 Vancomycin/Sodium Chloride 250 ml @ 167 mls/hr Q12H IVPB 04/05/18 23:00 04/10/18 22:59 04/05/18 23:52 Yrn Buckley MD Apr 06, 2018 12:48
--- NOTE | 2018-04-06 13:30 | Cardiology Report ---
APPROVED REPORT EXAM: Two-dimensional and M-mode echocardiogram with Doppler and color Doppler. INDICATION Congestive Heart Failure M-Mode DIMENSIONS IVSd1.0 (0.7-1.1cm)Left Atrium (MM)2.0 (1.6-4.0cm) LVDd3.2 (3.5-5.6cm)Aortic Root1.7 (2.0-3.7cm) PWd1.0 (0.7-1.1cm)Aortic Cusp Exc.1.5 (1.5-2.0cm) IVSs1.5 cm LVDs1.9 (2.5-4.0cm) PWs1.3 cm Normal left ventricular chamber size, systolic function and wall motion to extent visualized. Left ventricular ejection fraction estimated to be 55-60 %. No evidence of left ventricular hypertrophy. No evidence of pericardial effusion. All other cardiac chamber sizes are within normal limits. Focal aortic valve sclerosis with adequate cusp excursion. Thickened mitral valve leaflets with normal excursion. Mitral annulus and aortic root calcification. Pulmonic valve not well visualized. Normal tricuspid valve structure. Subcostal views are not obtained due to GI-tube. A color flow and spectral Doppler study was performed and revealed: No aortic regurgitation. Mild mitral regurgitation. Mitral diastolic velocities suggest reduced left ventricular relaxation c/w mild LV diastolic dysfunction (Grade I ). Trace tricuspid regurgitation. Tricuspid systolic velocities suggests peak right ventricular systolic pressure of 21 mmHg Trace Pulmonic regurgitation present.
[2018-04-06] MEDS: Vancomycin 750mg/NS 250ml 250 ML IVPB SCH ×2 (13:48→23:15)
[2018-04-06 16:00] VITALS: BP 138/78
[2018-04-06] MEDS ORDERED: 1/2 NS 1000ml IV ONE (16:27)
[2018-04-06] MEDS ORDERED: NS 275ml ONE (16:27)
[2018-04-06] MEDS: Levofloxacin 500mg tab GT SCH (18:06)
[2018-04-06 20:00] VITALS: BP 104/60
[2018-04-07] VITALS: BP 116/63
[2018-04-07] MEDS: Albuterol/Ipratropium 3ml neb HHN SCH ×4 (00:52→19:32)
[2018-04-07 04:00] VITALS: BP 105/70
[2018-04-07] MEDS: Aztreonam Inj 1 GM in D5W 55 ML IVPB SCH (05:13)
[2018-04-07] MEDS: NovoLOG Insulin Flexpen SUBQ SCH ×4 (05:33→20:06)
[2018-04-07 05:37] LABS: BASOPHILS % (AUTO) 0.3 % (0.0-2.0); EOSINOPHILS % (AUTO) 0.9 % (0.0-3.0); HEMATOCRIT 27.2 % (42.0-52.0); HEMOGLOBIN 8.5 G/DL (14.2-18.0); LYMPHOCYTES % (AUTO) 10.6 % (20.0-45.0); MEAN CORPUSCULAR VOLUME 84 FL (80-99); MONOCYTES % (AUTO) 3.7 % (1.0-10.0); NEUTROPHILS % (AUTO) 84.5 % (45.0-75.0); PLATELET COUNT 466 K/UL (150-450); RED BLOOD COUNT 3.25 M/UL (4.70-6.10); RED CELL DISTRIBUTION WIDTH 15.4 % (11.6-14.8); WHITE BLOOD COUNT 10.6 K/UL (4.8-10.8)
[2018-04-07 05:59] LABS: ANION GAP 8 mmol/L (5-15); BLOOD UREA NITROGEN 16 mg/dL (7-18); CALCIUM 8.3 MG/DL (8.5-10.1); CARBON DIOXIDE 30 MMOL/L (21-32); CHLORIDE 107 MMOL/L (98-107); CREATININE 0.6 MG/DL (0.55-1.30); POTASSIUM 3.2 MMOL/L (3.5-5.1); SODIUM 144 MMOL/L (136-145)
--- NOTE | 2018-04-07 06:36 | General Progress Note ---
Assessment/Plan Problem List: (1) Diabetes mellitus out of control ICD Codes: E11.65 - Type 2 diabetes mellitus with hyperglycemia SNOMED: 00538861, 333175025 (2) Multifocal pneumonia ICD Codes: J18.9 - Pneumonia, unspecified organism SNOMED: 629596602 (3) Sepsis ICD Codes: A41.9 - Sepsis, unspecified organism SNOMED: 18780888 (4) Respiratory failure ICD Codes: J96.90 - Respiratory failure, unspecified, unspecified whether with hypoxia or hypercapnia SNOMED: 841852240 (5) Pyelonephritis ICD Codes: N12 - Tubulo-interstitial nephritis, not specified as acute or chronic SNOMED: 58597984 Assessment/Plan continue BG monitoring and Novolog sliding scale ac / hs no need for scheduled insulin order now Subjective ROS Limited/Unobtainable: Yes Allergies: Coded Allergies: CEFTRIAXONE (Verified Allergy, Unknown, 04/04/18) Subjective events noted Objective Last 24 Hour Vital Signs Date Time Temp Pulse Resp B/P (MAP) Pulse Ox O2 Delivery O2 Flow Rate FiO2 04/07/18 05:18 80 18 99 Full Face 35 04/07/18 04:00 Nasal Cannula 2.0 04/07/18 04:00 88 04/07/18 04:00 28 04/07/18 04:00 98.8 88 22 105/70 (82) 99 98.8 04/07/18 03:30 89 28 100 Facial 35 04/07/18 00:54 76 23 98 Bi-pap 35 04/07/18 00:54 80 19 100 Bi-pap 35 04/07/18 00:52 82 25 98 Facial 35 04/07/18 00:00 28 04/07/18 00:00 98.1 87 20 116/63 (80) 98 98.1 04/07/18 00:00 86 04/07/18 00:00 Nasal Cannula 2.0 04/06/18 22:30 87 38 95 Full Face 35 04/06/18 20:00 97.9 86 20 104/60 (75) 97 97.9 04/06/18 20:00 2.0 04/06/18 20:00 Nasal Cannula 2.0 04/06/18 20:00 86 04/06/18 19:54 90 20 100 Nasal Cannula 2.0 28 04/06/18 19:54 88 20 98 Nasal Cannula 2.0 28 04/06/18 19:53 98 Nasal Cannula 2.0 28 04/06/18 19:53 Nasal Cannula 2.0 28 04/06/18 16:00 96 04/06/18 16:00 2.0 04/06/18 16:00 Nasal Cannula 2.0 04/06/18 16:00 97.7 94 24 138/78 (98) 94 97.7 04/06/18 13:42 85 20 100 Nasal Cannula 2.0 28 04/06/18 13:33 86 20 100 Nasal Cannula 2.0 28 04/06/18 12:00 83 04/06/18 12:00 97.9 77 28 120/66 (84) 97 97.9 04/06/18 12:00 2.0 04/06/18 12:00 Nasal Cannula 2.0 04/06/18 08:00 2.0 04/06/18 08:00 82 04/06/18 08:00 97.9 84 16 102/61 (75) 94 97.9 04/06/18 08:00 Nasal Cannula 2.0 04/06/18 07:15 78 22 100 Nasal Cannula 2.0 28 04/06/18 07:10 Nasal Cannula 2.0 28 04/06/18 07:09 98 Nasal Cannula 2.0 28 04/06/18 07:08 83 23 98 Nasal Cannula 2.0 28 Intake and Output 04/06/18 04/07/18 19:00 07:00 Intake Total 50 ml 939 ml Output Total 800 ml 500 ml Balance -750 ml 439 ml IV Total 50 ml 939 ml Output Urine Total 800 ml 500 ml Laboratory Tests 04/07/18 04:04: White Blood Count 10.6, Red Blood Count 3.25L, Hemoglobin 8.5L, Hematocrit 27.2L , Mean Corpuscular Volume 84, Mean Corpuscular Hemoglobin 26.3L, Mean Corpuscular Hemoglobin Concent 31.4L, Red Cell Distribution Width 15.4H, Platelet Count 466H, Mean Platelet Volume 7.1, Neutrophils (%) (Auto) 84.5H, Lymphocytes (%) (Auto) 10.6L, Monocytes (%) (Auto) 3.7, Eosinophils (%) (Auto) 0.9, Basophils (%) (Auto) 0.3, Sodium Level 144, Potassium Level 3.2L, Chloride Level 107, Carbon Dioxide Level 30, Anion Gap 8, Blood Urea Nitrogen 16, Creatinine 0.6, Estimat Glomerular Filtration Rate > 60, Glucose Level 89, Calcium Level 8.3L Height (Feet): 5 Height (Inches): 5.00 Weight (Pounds): 120 General Appearance: no apparent distress Neck: normal alignment Cardiovascular: normal rate Respiratory/Chest: decreased breath sounds Abdomen: normal bowel sounds Objective Current Medications Medications (Trade) Dose Ordered Sig/Briseida Route PRN Reason Start Time Stop Time Status Last Admin Dose Admin Acetaminophen (Tylenol) 650 mg Q4H PRN ORAL Mild Pain/Temp > 100.5 04/04/18 15:04 05/04/18 14:59 Albuterol/ Ipratropium (Albuterol/ Ipratropium) 3 ml Q4H PRN HHN Shortness of Breath 04/04/18 22:45 04/09/18 22:44 Albuterol/ Ipratropium (Albuterol/ Ipratropium) 3 ml Q6HRT HHN 04/05/18 01:00 04/10/18 00:59 04/07/18 00:52 Aztreonam 1 gm/ Dextrose 55 ml @ 110 mls/hr Q8HR IVPB 04/04/18 22:00 04/11/18 21:59 04/07/18 05:13 Dextrose (Dextrose 50%) 25 ml STAT PRN IV Hypoglycemia 04/05/18 07:45 05/05/18 07:44 Dextrose (Dextrose 50%) 50 ml STAT PRN IV Hypoglycemia 04/05/18 07:45 05/05/18 07:44 Famotidine (Pepcid) 20 mg BID GT 04/04/18 18:00 05/04/18 17:59 04/06/18 18:06 Heparin Sodium (Porcine) (Heparin 5000 units/ml) 5,000 units EVERY 12 HOURS SUBQ 04/05/18 09:00 05/05/18 08:59 04/06/18 21:38 Insulin Aspart (NovoLOG) BEFORE MEALS AND HS SUBQ 04/05/18 11:30 05/05/18 11:29 04/05/18 20:45 Levofloxacin (Levaquin) 500 mg Q24H GT 04/05/18 17:00 04/12/18 16:59 04/06/18 18:06 Sodium Chloride 1,000 ml @ 50 mls/hr Q20H IV 04/05/18 15:00 05/04/18 14:59 04/07/18 03:29 Vancomycin HCl (Vanco rx to dose) 1 ea DAILY PRN MISC Per rx protocol 04/04/18 19:30 05/04/18 19:29 Vancomycin/Sodium Chloride 250 ml @ 167 mls/hr Q12H IVPB 04/05/18 23:00 04/10/18 22:59 04/06/18 23:15 Item Value Date Time Bedside Blood Glucose 101 mg/dl 04/07/18 0533 Bedside Blood Glucose 99 mg/dl 04/07/18 0000 Bedside Blood Glucose 99 mg/dl 04/06/18 2136 Bedside Blood Glucose 109 mg/dl 04/06/18 1800 Bedside Blood Glucose 107 mg/dl 04/06/18 1200 Bedside Blood Glucose 113 mg/dl 04/06/18 0508 Bedside Blood Glucose 119 mg/dl 04/06/18 0000 Tello Parker MD Apr 07, 2018 06:36
[2018-04-07 08:00] VITALS: BP 104/60
[2018-04-07] MEDS: Heparin 5000 units/ml inj SUBQ SCH ×2 (08:20→20:08)
--- NOTE | 2018-04-07 08:43 | Pulmonology Progress Note ---
Assessment/Plan Problems: (1) Multifocal pneumonia (2) Respiratory failure (3) Pyelonephritis (4) UTI (urinary tract infection) (5) Acute renal failure (6) Sepsis (7) Diabetes mellitus out of control (8) Proteinuria (9) HCAP (healthcare-associated pneumonia) (10) Decubitus skin ulcer Assessment/Plan Acute hypoxemic and Chronic respiratory failure B pulmonary infiltrates, likely HCAP Elevated D-dimer Hypotension - resolved GRADY - improved Hypernatremia - improved Dementia/CVA NHR Dyphagia HTN, CAD PLAN: Optimize pulmonary hygiene/mobilize as tolerated PRN O2 Abx per ID RTC and PRN HHN's F/U Duplex and VQ TTE reviewed Monitor volumes and renal function DVT Px: Hep SQ TF's DNAR/DNI, BiPAP Ok Continue to discuss GOC Subjective Allergies: Coded Allergies: CEFTRIAXONE (Verified Allergy, Unknown, 04/04/18) Subjective AFVSS, stable on 2L No cough, no SOB, no wheezing, no F/C Objective Last 24 Hour Vital Signs Date Time Temp Pulse Resp B/P (MAP) Pulse Ox O2 Delivery O2 Flow Rate FiO2 04/07/18 08:35 78 22 99 04/07/18 08:29 83 20 100 Nasal Cannula 28 04/07/18 08:20 100 Nasal Cannula 2.0 28 04/07/18 08:20 Nasal Cannula 2.0 28 04/07/18 08:20 82 20 96 Nasal Cannula 28 04/07/18 08:20 83 20 100 04/07/18 08:00 80 04/07/18 05:18 80 18 99 Full Face 35 04/07/18 04:00 Nasal Cannula 2.0 04/07/18 04:00 88 04/07/18 04:00 28 04/07/18 04:00 98.8 88 22 105/70 (82) 99 98.8 04/07/18 03:30 89 28 100 Facial 35 04/07/18 00:54 76 23 98 Bi-pap 35 04/07/18 00:54 80 19 100 Bi-pap 35 04/07/18 00:52 82 25 98 Facial 35 04/07/18 00:00 28 04/07/18 00:00 98.1 87 20 116/63 (80) 98 98.1 04/07/18 00:00 86 04/07/18 00:00 Nasal Cannula 2.0 04/06/18 22:30 87 38 95 Full Face 35 04/06/18 20:00 97.9 86 20 104/60 (75) 97 97.9 04/06/18 20:00 2.0 04/06/18 20:00 Nasal Cannula 2.0 04/06/18 20:00 86 04/06/18 19:54 90 20 100 Nasal Cannula 2.0 28 04/06/18 19:54 88 20 98 Nasal Cannula 2.0 28 04/06/18 19:53 98 Nasal Cannula 2.0 28 04/06/18 19:53 Nasal Cannula 2.0 28 04/06/18 16:00 96 04/06/18 16:00 2.0 04/06/18 16:00 Nasal Cannula 2.0 04/06/18 16:00 97.7 94 24 138/78 (98) 94 97.7 04/06/18 13:42 85 20 100 Nasal Cannula 2.0 28 04/06/18 13:33 86 20 100 Nasal Cannula 2.0 28 04/06/18 12:00 83 04/06/18 12:00 97.9 77 28 120/66 (84) 97 97.9 04/06/18 12:00 2.0 04/06/18 12:00 Nasal Cannula 2.0 Intake and Output 04/06/18 04/07/18 19:00 07:00 Intake Total 50 ml 989 ml Output Total 800 ml 500 ml Balance -750 ml 489 ml IV Total 50 ml 989 ml Output Urine Total 800 ml 500 ml General Appearance: cachetic HEENT: normocephalic, atraumatic, anicteric, mucous membranes moist Respiratory/Chest: chest wall non-tender, lungs clear, normal breath sounds, no respiratory distress Cardiovascular: normal peripheral pulses, normal rate, regular rhythm Abdomen: normal bowel sounds, soft, non tender, no organomegaly, non distended , other - GT Extremities: no cyanosis, no clubbing, no edema Microbiology Date/Time Source Procedure Growth Status 04/04/18 10:50 Blood Blood Culture - Preliminary NO GROWTH AFTER 48 HOURS Resulted 04/04/18 10:45 Blood Blood Culture - Preliminary NO GROWTH AFTER 48 HOURS Resulted 04/05/18 14:30 Sputum Gram Stain - Final Resulted 04/05/18 14:30 Sputum Sputum Culture - Preliminary Resulted 04/04/18 10:55 Nasal Nares MRSA Culture - Final NO METHICILLIN RESISTANT STAPH AUREUS... Complete 04/04/18 10:45 Urine,Clean Catch Urine Culture - Final Proteus Mirabilis Esbl Complete 04/05/18 22:00 Sacral Wound Gram Stain - Final Resulted 04/05/18 22:00 Sacral Wound Wound Culture Pending Resulted 04/04/18 10:55 Rectum VRE Culture - Final NO VANCOMYCIN RESISTANT ENTEROCOCCUS ... Complete 04/04/18 10:55 Rectum - Final NO CARBAPENEM-RESISTANT ENTEROBACTERI... Complete Laboratory Tests 04/07/18 04:04: White Blood Count 10.6, Red Blood Count 3.25L, Hemoglobin 8.5L, Hematocrit 27.2L , Mean Corpuscular Volume 84, Mean Corpuscular Hemoglobin 26.3L, Mean Corpuscular Hemoglobin Concent 31.4L, Red Cell Distribution Width 15.4H, Platelet Count 466H, Mean Platelet Volume 7.1, Neutrophils (%) (Auto) 84.5H, Lymphocytes (%) (Auto) 10.6L, Monocytes (%) (Auto) 3.7, Eosinophils (%) (Auto) 0.9, Basophils (%) (Auto) 0.3, Sodium Level 144, Potassium Level 3.2L, Chloride Level 107, Carbon Dioxide Level 30, Anion Gap 8, Blood Urea Nitrogen 16, Creatinine 0.6, Estimat Glomerular Filtration Rate > 60, Glucose Level 89, Calcium Level 8.3L Current Medications Medications (Trade) Dose Ordered Sig/Briseida Route PRN Reason Start Time Stop Time Status Last Admin Dose Admin Acetaminophen (Tylenol) 650 mg Q4H PRN ORAL Mild Pain/Temp > 100.5 04/04/18 15:04 05/04/18 14:59 Albuterol/ Ipratropium (Albuterol/ Ipratropium) 3 ml Q4H PRN HHN Shortness of Breath 04/04/18 22:45 04/09/18 22:44 Albuterol/ Ipratropium (Albuterol/ Ipratropium) 3 ml Q6HRT HHN 04/05/18 01:00 04/10/18 00:59 04/07/18 08:27 Aztreonam 1 gm/ Dextrose 55 ml @ 110 mls/hr Q8HR IVPB 04/04/18 22:00 04/11/18 21:59 04/07/18 05:13 Dextrose (Dextrose 50%) 25 ml STAT PRN IV Hypoglycemia 04/05/18 07:45 05/05/18 07:44 Dextrose (Dextrose 50%) 50 ml STAT PRN IV Hypoglycemia 04/05/18 07:45 05/05/18 07:44 Famotidine (Pepcid) 20 mg BID GT 04/04/18 18:00 05/04/18 17:59 04/07/18 08:17 Heparin Sodium (Porcine) (Heparin 5000 units/ml) 5,000 units EVERY 12 HOURS SUBQ 04/05/18 09:00 05/05/18 08:59 04/07/18 08:20 Insulin Aspart (NovoLOG) BEFORE MEALS AND HS SUBQ 04/05/18 11:30 05/05/18 11:29 04/05/18 20:45 Levofloxacin (Levaquin) 500 mg Q24H GT 04/05/18 17:00 04/12/18 16:59 04/06/18 18:06 Potassium Chloride 100 ml @ 100 mls/hr Q1H IVPB 04/07/18 08:00 04/07/18 11:59 04/07/18 08:17 Vancomycin HCl (Vanco rx to dose) 1 ea DAILY PRN MISC Per rx protocol 04/04/18 19:30 05/04/18 19:29 Vancomycin/Sodium Chloride 250 ml @ 167 mls/hr Q12H IVPB 04/05/18 23:00 04/10/18 22:59 04/06/18 23:15 Yrn Buckley MD Apr 07, 2018 08:43
--- NOTE | 2018-04-07 08:55 | Nephrology Progress Note ---
Assessment/Plan Problem List: (1) Respiratory failure (2) Diabetes mellitus out of control (3) Acute renal failure (4) Proteinuria Assessment Acute respiratory failure- Hypoxia - Renal failure- Proteinuria- Hypoalbuminemia Anemia- UTI- Cachexia , Malnutrition- PEG- HypoTension Plan Fluid challenge- respiratory support- Antibiotics Monitor renal parameters K Phos Mag supplement as needed per orders Subjective ROS Limited/Unobtainable: No Constitutional: Reports: malaise Objective Objective Last 24 Hour Vital Signs Date Time Temp Pulse Resp B/P (MAP) Pulse Ox O2 Delivery O2 Flow Rate FiO2 04/07/18 08:35 78 22 99 04/07/18 08:29 83 20 100 Nasal Cannula 28 04/07/18 08:20 100 Nasal Cannula 2.0 04/07/18 08:20 Nasal Cannula 2.0 04/07/18 08:20 82 20 96 Nasal Cannula 28 04/07/18 08:20 83 20 100 04/07/18 08:00 80 04/07/18 05:18 80 18 99 Full Face 35 04/07/18 04:00 Nasal Cannula 2.0 04/07/18 04:00 88 04/07/18 04:00 28 04/07/18 04:00 98.8 88 22 105/70 (82) 99 98.8 04/07/18 03:30 89 28 100 Facial 35 04/07/18 00:54 76 23 98 Bi-pap 35 04/07/18 00:54 80 19 100 Bi-pap 35 04/07/18 00:52 82 25 98 Facial 35 04/07/18 00:00 28 04/07/18 00:00 98.1 87 20 116/63 (80) 98 98.1 04/07/18 00:00 86 04/07/18 00:00 Nasal Cannula 2.0 04/06/18 22:30 87 38 95 Full Face 35 04/06/18 20:00 97.9 86 20 104/60 (75) 97 97.9 04/06/18 20:00 2.0 04/06/18 20:00 Nasal Cannula 2.0 04/06/18 20:00 86 04/06/18 19:54 90 20 100 Nasal Cannula 2.0 04/06/18 19:54 88 20 98 Nasal Cannula 2.0 04/06/18 19:53 98 Nasal Cannula 2.0 04/06/18 19:53 Nasal Cannula 2.0 28 04/06/18 16:00 96 04/06/18 16:00 2.0 04/06/18 16:00 Nasal Cannula 2.0 04/06/18 16:00 97.7 94 24 138/78 (98) 94 97.7 04/06/18 13:42 85 20 100 Nasal Cannula 2.0 28 04/06/18 13:33 86 20 100 Nasal Cannula 2.0 28 04/06/18 12:00 83 04/06/18 12:00 97.9 77 28 120/66 (84) 97 97.9 04/06/18 12:00 2.0 04/06/18 12:00 Nasal Cannula 2.0 Intake and Output 04/06/18 04/07/18 19:00 07:00 Intake Total 50 ml 989 ml Output Total 800 ml 500 ml Balance -750 ml 489 ml IV Total 50 ml 989 ml Output Urine Total 800 ml 500 ml Laboratory Tests 04/07/18 04:04: White Blood Count 10.6, Red Blood Count 3.25L, Hemoglobin 8.5L, Hematocrit 27.2L , Mean Corpuscular Volume 84, Mean Corpuscular Hemoglobin 26.3L, Mean Corpuscular Hemoglobin Concent 31.4L, Red Cell Distribution Width 15.4H, Platelet Count 466H, Mean Platelet Volume 7.1, Neutrophils (%) (Auto) 84.5H, Lymphocytes (%) (Auto) 10.6L, Monocytes (%) (Auto) 3.7, Eosinophils (%) (Auto) 0.9, Basophils (%) (Auto) 0.3, Sodium Level 144, Potassium Level 3.2L, Chloride Level 107, Carbon Dioxide Level 30, Anion Gap 8, Blood Urea Nitrogen 16, Creatinine 0.6, Estimat Glomerular Filtration Rate > 60, Glucose Level 89, Calcium Level 8.3L Height (Feet): 5 Height (Inches): 5.00 Weight (Pounds): 120 General Appearance: no apparent distress Objective no change Chava Dwyer MD Apr 07, 2018 08:55
--- NOTE | 2018-04-07 11:01 | Consultation ---
History of Present Illness General Date patient seen: Apr 07, 2018 Chief Complaint: Dyspnea/Respdistress Reason for Consultation: sacral / hip wounds Present Illness HPI 68M multiple medical comorbidities currently here from group home for medical care and management. upon admission noted to have large sacral decubitus ulcer and open left hip decubitus ulcer. surgery called to assist with care and management of wounds. sacral wound clean. left hip wound requiring care. patient seen, chart reviewed, patient examined. patient himself not verbal Allergies: Coded Allergies: CEFTRIAXONE (Verified Allergy, Unknown, 04/04/18) Medication History Scheduled Ascorbic Acid* (Vitamin C*), 500 MG GT DAILY, (Reported) Cranberry Extract (Cranberry Extract), 1 CAP GT BID, (Reported) Donepezil HCl (Aricept), 10 MG GT BEDTIME, (Reported) Dutasteride (Avodart), 0.5 MG GT DAILY, (Reported) Insulin Glargine (Lantus), 31 SUBQ BEDTIME, (Reported) Multivitamin With Minerals (Multivitamins With Minerals*), 1 TAB GT DAILY, ( Reported) Tamsulosin Hcl (Tamsulosin Hcl*), 0.4 MG GT BEDTIME, (Reported) Scheduled PRN Acetaminophen* (Acetaminophen 325MG Tablet*), 650 MG GT Q4H PRN for wound care, (Reported) Acetaminophen* (Tylenol Extra Strength*), 650 MG GT Q4HR PRN for Mild Pain/Temp > 100.5, (Reported) Acetaminophen* (Acetaminophen 325MG Tablet*), 650 MG GT Q4H PRN for Fever/ Headache/Mild Pain, (Reported) Arginine/Ascorbate Sod/Abigail AC (Arginaid Powder), 1 EACH GT BID PRN for wound healing, (Reported) Ipratropium [place] 0.5MG/2.5ML (Ipratropium [place] 0.5MG/2.5ML), 0.5 MG HHN Q4HR PRN for Shortness of Breath, (Reported) Polyvinyl Alcohol (Liquitears), 1 DRP OP EVERY 4 HOURS PRN for Dry Eyes, ( Reported) Miscellaneous Medications Collagenase Clostridium Hist. (Collagenase), 1 EACH MC, (Reported) Insulin Aspart* (Novolog*), 0 SUBQ, (Reported) Silver Sulfadiazine (Silvadene), 20 GM TP, (Reported) Patient History Limited by: medical condition History Provided By: Medical Record, PMD Healthcare decision maker Belinda Rivero (daughter) Resuscitation status Do Not Resuscitate Advanced Directive on File No Past Medical/Surgical History Past Medical/Surgical History: (1) Pyelonephritis (2) Respiratory failure (3) Sepsis (4) Diabetes mellitus out of control (5) Multifocal pneumonia (6) Acute renal failure (7) Proteinuria (8) UTI (urinary tract infection) (9) HCAP (healthcare-associated pneumonia) (10) Decubitus skin ulcer Review of Systems ROS Narrative cannot obtain given medical condition Physical Exam General Appearance: no apparent distress HEENT: mucous membranes moist Neck: normal inspection Respiratory/Chest: normal breath sounds, no respiratory distress, no accessory muscle use Cardiovascular/Chest: normal peripheral pulses, normal rate Abdomen: normal bowel sounds, non tender, soft, no organomegaly Extremities: normal inspection Skin Exam: other Neurologic: unresponsiveness Last 24 Hour Vital Signs Date Time Temp Pulse Resp B/P (MAP) Pulse Ox O2 Delivery O2 Flow Rate FiO2 04/07/18 08:35 78 22 99 04/07/18 08:29 83 20 100 Nasal Cannula 28 04/07/18 08:20 100 Nasal Cannula 2.0 28 04/07/18 08:20 Nasal Cannula 2.0 28 04/07/18 08:20 82 20 96 Nasal Cannula 28 04/07/18 08:20 83 20 100 04/07/18 08:00 80 04/07/18 05:18 80 18 99 Full Face 35 04/07/18 04:00 Nasal Cannula 2.0 04/07/18 04:00 88 04/07/18 04:00 28 04/07/18 04:00 98.8 88 22 105/70 (82) 99 98.8 04/07/18 03:30 89 28 100 Facial 35 04/07/18 00:54 76 23 98 Bi-pap 35 04/07/18 00:54 80 19 100 Bi-pap 35 04/07/18 00:52 82 25 98 Facial 35 04/07/18 00:00 28 04/07/18 00:00 98.1 87 20 116/63 (80) 98 98.1 04/07/18 00:00 86 04/07/18 00:00 Nasal Cannula 2.0 04/06/18 22:30 87 38 95 Full Face 35 04/06/18 20:00 97.9 86 20 104/60 (75) 97 97.9 04/06/18 20:00 2.0 04/06/18 20:00 Nasal Cannula 2.0 04/06/18 20:00 86 04/06/18 19:54 90 20 100 Nasal Cannula 2.0 28 04/06/18 19:54 88 20 98 Nasal Cannula 2.0 28 04/06/18 19:53 98 Nasal Cannula 2.0 28 04/06/18 19:53 Nasal Cannula 2.0 28 04/06/18 16:00 96 04/06/18 16:00 2.0 04/06/18 16:00 Nasal Cannula 2.0 04/06/18 16:00 97.7 94 24 138/78 (98) 94 97.7 04/06/18 13:42 85 20 100 Nasal Cannula 2.0 28 04/06/18 13:33 86 20 100 Nasal Cannula 2.0 28 04/06/18 12:00 83 04/06/18 12:00 97.9 77 28 120/66 (84) 97 97.9 04/06/18 12:00 2.0 04/06/18 12:00 Nasal Cannula 2.0 Intake and Output 04/06/18 04/07/18 19:00 07:00 Intake Total 50 ml 989 ml Output Total 800 ml 500 ml Balance -750 ml 489 ml IV Total 50 ml 989 ml Output Urine Total 800 ml 500 ml Laboratory Tests Test 04/07/18 04:04 White Blood Count 10.6 K/UL (4.8-10.8) Red Blood Count 3.25 M/UL (4.70-6.10) L Hemoglobin 8.5 G/DL (14.2-18.0) L Hematocrit 27.2 % (42.0-52.0) L Mean Corpuscular Volume 84 FL (80-99) Mean Corpuscular Hemoglobin 26.3 PG (27.0-31.0) L Mean Corpuscular Hemoglobin Concent 31.4 G/DL (32.0-36.0) L Red Cell Distribution Width 15.4 % (11.6-14.8) H Platelet Count 466 K/UL (150-450) H Mean Platelet Volume 7.1 FL (6.5-10.1) Neutrophils (%) (Auto) 84.5 % (45.0-75.0) H Lymphocytes (%) (Auto) 10.6 % (20.0-45.0) L Monocytes (%) (Auto) 3.7 % (1.0-10.0) Eosinophils (%) (Auto) 0.9 % (0.0-3.0) Basophils (%) (Auto) 0.3 % (0.0-2.0) Sodium Level 144 MMOL/L (136-145) Potassium Level 3.2 MMOL/L (3.5-5.1) L Chloride Level 107 MMOL/L (98-107) Carbon Dioxide Level 30 MMOL/L (21-32) Anion Gap 8 mmol/L (5-15) Blood Urea Nitrogen 16 mg/dL (7-18) Creatinine 0.6 MG/DL (0.55-1.30) Estimat Glomerular Filtration Rate > 60 mL/min (>60) Glucose Level 89 MG/DL (74-106) Calcium Level 8.3 MG/DL (8.5-10.1) L Height (Feet): 5 Height (Inches): 5.00 Weight (Pounds): 120 Medications Current Medications Medications (Trade) Dose Ordered Sig/Briseida Route PRN Reason Start Time Stop Time Status Last Admin Dose Admin Acetaminophen (Tylenol) 650 mg Q4H PRN ORAL Mild Pain/Temp > 100.5 04/04/18 15:04 05/04/18 14:59 Albuterol/ Ipratropium (Albuterol/ Ipratropium) 3 ml Q4H PRN HHN Shortness of Breath 04/04/18 22:45 04/09/18 22:44 Albuterol/ Ipratropium (Albuterol/ Ipratropium) 3 ml Q6HRT HHN 04/05/18 01:00 04/10/18 00:59 04/07/18 08:27 Aztreonam 1 gm/ Dextrose 55 ml @ 110 mls/hr Q8HR IVPB 04/04/18 22:00 04/11/18 21:59 04/07/18 05:13 Dextrose (Dextrose 50%) 25 ml STAT PRN IV Hypoglycemia 04/05/18 07:45 05/05/18 07:44 Dextrose (Dextrose 50%) 50 ml STAT PRN IV Hypoglycemia 04/05/18 07:45 05/05/18 07:44 Famotidine (Pepcid) 20 mg BID GT 04/04/18 18:00 05/04/18 17:59 04/07/18 08:17 Heparin Sodium (Porcine) (Heparin 5000 units/ml) 5,000 units EVERY 12 HOURS SUBQ 04/05/18 09:00 05/05/18 08:59 04/07/18 08:20 Insulin Aspart (NovoLOG) BEFORE MEALS AND HS SUBQ 04/05/18 11:30 05/05/18 11:29 04/05/18 20:45 Levofloxacin (Levaquin) 500 mg Q24H GT 04/05/18 17:00 04/12/18 16:59 04/06/18 18:06 Potassium Chloride 100 ml @ 100 mls/hr Q1H IVPB 04/07/18 08:00 04/07/18 11:59 04/07/18 10:01 Vancomycin HCl (Vanco rx to dose) 1 ea DAILY PRN MISC Per rx protocol 04/04/18 19:30 05/04/18 19:29 Vancomycin/Sodium Chloride 250 ml @ 167 mls/hr Q12H IVPB 04/05/18 23:00 04/10/18 22:59 04/06/18 23:15 Assessment/Plan Problem List: (1) Decubitus ulcer of left hip, stage 4 Assessment & Plan: decubitus ulcer of left hip; stage 4. approximately 10cm x 10cm x 3cm at deepest depth. wound down to fascia just overlying bone but no exposed bone. cavity with tracing inferior and lateral. fibrinous exudate and soft eschar noted. non excisional debridement performed at bedside. wound cleaned. crosshatch placed in eschar for debridement with dressings -packing and dressing TID off loading skin protectant turn q2h air mattress ICD Codes: L89.224 - Pressure ulcer of left hip, stage 4 SNOMED: 530956361, 502589157 (2) Decubitus ulcer of right hip, stage 3 Assessment & Plan: 2cm x 3cm area with small area in center that is below dermis. foam dressings daily off loading skin protectant turn q2h air mattress ICD Codes: L89.213 - Pressure ulcer of right hip, stage 3 SNOMED: 058578866, 690583675 (3) Sacral decubitus ulcer, stage IV Assessment & Plan: seems to have prior debridement. wound very clean and does not need debridement at this time. see photos for measurements. foam dressing daily off loading skin protectant turn q2h air mattress ICD Codes: L89.154 - Pressure ulcer of sacral region, stage 4 SNOMED: 573651986, 919621804 Shamar Clark Apr 07, 2018 11:01
[2018-04-07 12:00] VITALS: BP 102/60
--- NOTE | 2018-04-07 12:53 | Infectious Diseases Prog Note ---
Assessment/Plan Assessment/Plan A: Sepsis Pneumonia UTI with Proteus ESBL Advanced dementia DM HPN P; Continue Vancomycin & Levaquin Change Azactam to Meropenem will f/u sputum culture Subjective ROS Limited/Unobtainable: Yes Allergies: Coded Allergies: CEFTRIAXONE (Verified Allergy, Unknown, 04/04/18) Objective Vital Signs Last 24 Hour Vital Signs Date Time Temp Pulse Resp B/P (MAP) Pulse Ox O2 Delivery O2 Flow Rate FiO2 04/07/18 12:00 Nasal Cannula 2.0 04/07/18 12:00 2.0 04/07/18 10:32 70 20 99 04/07/18 08:35 78 22 99 04/07/18 08:29 83 20 100 Nasal Cannula 28 04/07/18 08:20 100 Nasal Cannula 2.0 28 04/07/18 08:20 Nasal Cannula 2.0 28 04/07/18 08:20 82 20 96 Nasal Cannula 28 04/07/18 08:20 83 20 100 04/07/18 08:00 80 04/07/18 08:00 2.0 04/07/18 08:00 97.9 86 20 104/60 (75) 97 97.9 04/07/18 08:00 Nasal Cannula 2.0 04/07/18 05:18 80 18 99 Full Face 35 04/07/18 04:00 Nasal Cannula 2.0 04/07/18 04:00 88 04/07/18 04:00 28 04/07/18 04:00 98.8 88 22 105/70 (82) 99 98.8 04/07/18 03:30 89 28 100 Facial 35 04/07/18 00:54 76 23 98 Bi-pap 35 04/07/18 00:54 80 19 100 Bi-pap 35 04/07/18 00:52 82 25 98 Facial 35 04/07/18 00:00 28 04/07/18 00:00 98.1 87 20 116/63 (80) 98 98.1 04/07/18 00:00 86 04/07/18 00:00 Nasal Cannula 2.0 04/06/18 22:30 87 38 95 Full Face 35 04/06/18 20:00 97.9 86 20 104/60 (75) 97 97.9 04/06/18 20:00 2.0 04/06/18 20:00 Nasal Cannula 2.0 04/06/18 20:00 86 04/06/18 19:54 90 20 100 Nasal Cannula 2.0 28 04/06/18 19:54 88 20 98 Nasal Cannula 2.0 28 04/06/18 19:53 98 Nasal Cannula 2.0 28 04/06/18 19:53 Nasal Cannula 2.0 28 04/06/18 16:00 96 04/06/18 16:00 2.0 04/06/18 16:00 Nasal Cannula 2.0 04/06/18 16:00 97.7 94 24 138/78 (98) 94 97.7 04/06/18 13:42 85 20 100 Nasal Cannula 2.0 28 04/06/18 13:33 86 20 100 Nasal Cannula 2.0 28 Height (Feet): 5 Height (Inches): 5.00 Weight (Pounds): 120 HEENT: mucous membranes moist Respiratory/Chest: lungs clear Cardiovascular: normal rate Abdomen: soft, non tender, other - GT feeding Extremities: no edema Neurologic/Psychiatric: disoriented Musculoskeletal: atrophy Microbiology Date/Time Source Procedure Growth Status 04/05/18 14:30 Sputum Gram Stain - Final Resulted 04/05/18 14:30 Sputum Sputum Culture - Preliminary Resulted 04/05/18 22:00 Sacral Wound Gram Stain - Final Resulted 04/05/18 22:00 Sacral Wound Wound Culture - Preliminary Resulted Laboratory Tests Test 04/07/18 04:04 White Blood Count 10.6 K/UL (4.8-10.8) Red Blood Count 3.25 M/UL (4.70-6.10) L Hemoglobin 8.5 G/DL (14.2-18.0) L Hematocrit 27.2 % (42.0-52.0) L Mean Corpuscular Volume 84 FL (80-99) Mean Corpuscular Hemoglobin 26.3 PG (27.0-31.0) L Mean Corpuscular Hemoglobin Concent 31.4 G/DL (32.0-36.0) L Red Cell Distribution Width 15.4 % (11.6-14.8) H Platelet Count 466 K/UL (150-450) H Mean Platelet Volume 7.1 FL (6.5-10.1) Neutrophils (%) (Auto) 84.5 % (45.0-75.0) H Lymphocytes (%) (Auto) 10.6 % (20.0-45.0) L Monocytes (%) (Auto) 3.7 % (1.0-10.0) Eosinophils (%) (Auto) 0.9 % (0.0-3.0) Basophils (%) (Auto) 0.3 % (0.0-2.0) Sodium Level 144 MMOL/L (136-145) Potassium Level 3.2 MMOL/L (3.5-5.1) L Chloride Level 107 MMOL/L (98-107) Carbon Dioxide Level 30 MMOL/L (21-32) Anion Gap 8 mmol/L (5-15) Blood Urea Nitrogen 16 mg/dL (7-18) Creatinine 0.6 MG/DL (0.55-1.30) Estimat Glomerular Filtration Rate > 60 mL/min (>60) Glucose Level 89 MG/DL (74-106) Calcium Level 8.3 MG/DL (8.5-10.1) L Current Medications Medications (Trade) Dose Ordered Sig/Briseida Route PRN Reason Start Time Stop Time Status Last Admin Dose Admin Acetaminophen (Tylenol) 650 mg Q4H PRN ORAL Mild Pain/Temp > 100.5 04/04/18 15:04 05/04/18 14:59 Albuterol/ Ipratropium (Albuterol/ Ipratropium) 3 ml Q4H PRN HHN Shortness of Breath 04/04/18 22:45 04/09/18 22:44 Albuterol/ Ipratropium (Albuterol/ Ipratropium) 3 ml Q6HRT HHN 04/05/18 01:00 04/10/18 00:59 04/07/18 08:27 Aztreonam 1 gm/ Dextrose 55 ml @ 110 mls/hr Q8HR IVPB 04/04/18 22:00 04/11/18 21:59 04/07/18 05:13 Dextrose (Dextrose 50%) 25 ml STAT PRN IV Hypoglycemia 04/05/18 07:45 05/05/18 07:44 Dextrose (Dextrose 50%) 50 ml STAT PRN IV Hypoglycemia 04/05/18 07:45 05/05/18 07:44 Famotidine (Pepcid) 20 mg BID GT 04/04/18 18:00 05/04/18 17:59 04/07/18 08:17 Heparin Sodium (Porcine) (Heparin 5000 units/ml) 5,000 units EVERY 12 HOURS SUBQ 04/05/18 09:00 05/05/18 08:59 04/07/18 08:20 Insulin Aspart (NovoLOG) BEFORE MEALS AND HS SUBQ 04/05/18 11:30 05/05/18 11:29 04/05/18 20:45 Levofloxacin (Levaquin) 500 mg Q24H GT 04/05/18 17:00 04/12/18 16:59 04/06/18 18:06 Potassium Chloride 100 ml @ 100 mls/hr Q1H IVPB 04/07/18 12:45 04/07/18 14:44 Vancomycin HCl (Vanco rx to dose) 1 ea DAILY PRN MISC Per rx protocol 04/04/18 19:30 05/04/18 19:29 Vancomycin/Sodium Chloride 250 ml @ 167 mls/hr Q12H IVPB 04/05/18 23:00 04/10/18 22:59 04/06/18 23:15 Herson Palmer MD Apr 07, 2018 12:53
[2018-04-07] MEDS: Vancomycin 750mg/NS 250ml 250 ML IVPB SCH ×2 (12:59→22:49)
--- NOTE | 2018-04-07 13:53 | General Progress Note ---
Assessment/Plan Problem List: (1) Respiratory failure ICD Codes: J96.90 - Respiratory failure, unspecified, unspecified whether with hypoxia or hypercapnia SNOMED: 473624717 (2) Diabetes mellitus out of control ICD Codes: E11.65 - Type 2 diabetes mellitus with hyperglycemia SNOMED: 94312491, 220347191 (3) Multifocal pneumonia ICD Codes: J18.9 - Pneumonia, unspecified organism SNOMED: 924543108 (4) Acute renal failure ICD Codes: N17.9 - Acute kidney failure, unspecified SNOMED: 92930233 (5) UTI (urinary tract infection) ICD Codes: N39.0 - Urinary tract infection, site not specified SNOMED: 87193293 Status: stable, progressing Assessment/Plan o2 pulm tx abx ot pt diet cbc bmp am dc plan snf Subjective Constitutional: Reports: weakness Allergies: Coded Allergies: CEFTRIAXONE (Verified Allergy, Unknown, 04/04/18) All Systems: reviewed and negative except above Subjective o2nc sleepy Objective Last 24 Hour Vital Signs Date Time Temp Pulse Resp B/P (MAP) Pulse Ox O2 Delivery O2 Flow Rate FiO2 04/07/18 13:46 83 20 97 Nasal Cannula 28 04/07/18 13:35 80 22 92 Nasal Cannula 28 04/07/18 13:25 75 22 98 04/07/18 12:00 Nasal Cannula 2.0 04/07/18 12:00 2.0 04/07/18 10:32 70 20 99 04/07/18 08:35 78 22 99 04/07/18 08:29 83 20 100 Nasal Cannula 28 04/07/18 08:20 100 Nasal Cannula 2.0 04/07/18 08:20 Nasal Cannula 2.0 28 04/07/18 08:20 82 20 96 Nasal Cannula 28 04/07/18 08:20 83 20 100 04/07/18 08:00 80 04/07/18 08:00 2.0 04/07/18 08:00 97.9 86 20 104/60 (75) 97 97.9 04/07/18 08:00 Nasal Cannula 2.0 04/07/18 05:18 80 18 99 Full Face 35 04/07/18 04:00 Nasal Cannula 2.0 04/07/18 04:00 88 04/07/18 04:00 28 04/07/18 04:00 98.8 88 22 105/70 (82) 99 98.8 04/07/18 03:30 89 28 100 Facial 35 04/07/18 00:54 76 23 98 Bi-pap 35 04/07/18 00:54 80 19 100 Bi-pap 35 04/07/18 00:52 82 25 98 Facial 35 04/07/18 00:00 28 04/07/18 00:00 98.1 87 20 116/63 (80) 98 98.1 04/07/18 00:00 86 04/07/18 00:00 Nasal Cannula 2.0 04/06/18 22:30 87 38 95 Full Face 35 04/06/18 20:00 97.9 86 20 104/60 (75) 97 97.9 04/06/18 20:00 2.0 04/06/18 20:00 Nasal Cannula 2.0 04/06/18 20:00 86 04/06/18 19:54 90 20 100 Nasal Cannula 2.0 28 04/06/18 19:54 88 20 98 Nasal Cannula 2.0 28 04/06/18 19:53 98 Nasal Cannula 2.0 28 04/06/18 19:53 Nasal Cannula 2.0 28 04/06/18 16:00 96 04/06/18 16:00 2.0 04/06/18 16:00 Nasal Cannula 2.0 04/06/18 16:00 97.7 94 24 138/78 (98) 94 97.7 Intake and Output 04/06/18 04/07/18 19:00 07:00 Intake Total 50 ml 989 ml Output Total 800 ml 500 ml Balance -750 ml 489 ml IV Total 50 ml 989 ml Output Urine Total 800 ml 500 ml Laboratory Tests 04/07/18 04:04: White Blood Count 10.6, Red Blood Count 3.25L, Hemoglobin 8.5L, Hematocrit 27.2L , Mean Corpuscular Volume 84, Mean Corpuscular Hemoglobin 26.3L, Mean Corpuscular Hemoglobin Concent 31.4L, Red Cell Distribution Width 15.4H, Platelet Count 466H, Mean Platelet Volume 7.1, Neutrophils (%) (Auto) 84.5H, Lymphocytes (%) (Auto) 10.6L, Monocytes (%) (Auto) 3.7, Eosinophils (%) (Auto) 0.9, Basophils (%) (Auto) 0.3, Sodium Level 144, Potassium Level 3.2L, Chloride Level 107, Carbon Dioxide Level 30, Anion Gap 8, Blood Urea Nitrogen 16, Creatinine 0.6, Estimat Glomerular Filtration Rate > 60, Glucose Level 89, Calcium Level 8.3L Height (Feet): 5 Height (Inches): 5.00 Weight (Pounds): 120 General Appearance: lethargic EENT: normal ENT inspection Neck: normal alignment Cardiovascular: normal peripheral pulses, normal rate, regular rhythm Respiratory/Chest: chest wall non-tender, decreased breath sounds Abdomen: normal bowel sounds, non tender, soft Extremities: normal inspection Edema: no edema noted Arm (L), no edema noted Arm (R), no edema noted Leg (L), no edema noted Leg (R), no edema noted Pedal (L), no edema noted Pedal (R), no edema noted Generalized Neurologic: motor weakness Skin: normal pigmentation, warm/dry Franky Bermudez DO Apr 07, 2018 13:53
[2018-04-07] MEDS: Meropenem 500 MG in NS 55 ML IVPB SCH ×2 (14:15→21:33)
[2018-04-07 16:00] VITALS: BP 122/71
--- NOTE | 2018-04-07 17:00 | Diagnostic Imaging Report ---
Indication: Chest pain Technique: A ventilation/perfusion scan was performed. Ventilation was performed utilizing 40 mCi of Technetium 99m-DTPA. Perfusion was performed with 5 mCi of technetium 99m-MAA injected intravenously. Multiple side by side projections obtained. Findings: Ventilation/perfusion are both moderately patchy and heterogeneous. The corresponding chest x-ray shows of both mixed interstitial and alveolar opacities throughout the lungs fairly extensive in degree. By definition, this falls in the intermediate probability category. Impression: Intermediate probability for pulmonary embolus
[2018-04-07] MEDS: Levofloxacin 500mg tab GT SCH (17:44)
[2018-04-07] MEDS ORDERED: Isovue-370 150ml vial INJ PRN (18:45)
[2018-04-07 20:00] VITALS: BP 104/66
[2018-04-08] VITALS: BP 112/60
[2018-04-08] MEDS: Albuterol/Ipratropium 3ml neb HHN SCH ×4 (00:36→19:43)
[2018-04-08 04:00] VITALS: BP 115/70
[2018-04-08 05:05] LABS: HEMATOCRIT 30.2 % (42.0-52.0); HEMOGLOBIN 9.2 G/DL (14.2-18.0); MEAN CORPUSCULAR VOLUME 83 FL (80-99); PLATELET COUNT 479 K/UL (150-450); RED BLOOD COUNT 3.64 M/UL (4.70-6.10); RED CELL DISTRIBUTION WIDTH 15.6 % (11.6-14.8); WHITE BLOOD COUNT 9.1 K/UL (4.8-10.8)
[2018-04-08 05:38] LABS: ANION GAP 7 mmol/L (5-15); BLOOD UREA NITROGEN 13 mg/dL (7-18); CALCIUM 8.3 MG/DL (8.5-10.1); CARBON DIOXIDE 31 MMOL/L (21-32); CHLORIDE 106 MMOL/L (98-107); CREATININE 0.5 MG/DL (0.55-1.30); POTASSIUM 3.3 MMOL/L (3.5-5.1); SODIUM 144 MMOL/L (136-145)
[2018-04-08] MEDS: Meropenem 500 MG in NS 55 ML IVPB SCH ×3 (05:44→21:42)
[2018-04-08] MEDS: NovoLOG Insulin Flexpen SUBQ SCH ×4 (05:45→23:50)
--- NOTE | 2018-04-08 06:50 | General Progress Note ---
Assessment/Plan Problem List: (1) Diabetes mellitus out of control ICD Codes: E11.65 - Type 2 diabetes mellitus with hyperglycemia SNOMED: 71068674, 773711915 (2) Multifocal pneumonia ICD Codes: J18.9 - Pneumonia, unspecified organism SNOMED: 496369181 (3) Sepsis ICD Codes: A41.9 - Sepsis, unspecified organism SNOMED: 25825065 (4) Respiratory failure ICD Codes: J96.90 - Respiratory failure, unspecified, unspecified whether with hypoxia or hypercapnia SNOMED: 292314828 (5) Pyelonephritis ICD Codes: N12 - Tubulo-interstitial nephritis, not specified as acute or chronic SNOMED: 27875476 Assessment/Plan continue BG monitoring and Novolog sliding scale ac / hs no need for scheduled insulin order now Subjective ROS Limited/Unobtainable: Yes Allergies: Coded Allergies: CEFTRIAXONE (Verified Allergy, Unknown, 04/04/18) Subjective events noted Objective Last 24 Hour Vital Signs Date Time Temp Pulse Resp B/P (MAP) Pulse Ox O2 Delivery O2 Flow Rate FiO2 04/08/18 05:28 86 22 98 2.0 28 04/08/18 04:00 28 04/08/18 04:00 97.7 87 26 115/70 (85) 98 97.7 04/08/18 04:00 86 04/08/18 04:00 Nasal Cannula 2.0 04/08/18 02:35 82 21 99 Full Face 30 04/08/18 00:43 89 20 99 Bi-pap 30 04/08/18 00:35 82 24 98 Bi-pap 30 04/08/18 00:34 87 24 98 Facial 30 04/08/18 00:00 28 04/08/18 00:00 97.3 86 22 112/60 (77) 98 97.3 04/08/18 00:00 Nasal Cannula 2.0 04/08/18 00:00 87 04/07/18 22:30 88 28 98 Facial 35 04/07/18 20:00 Nasal Cannula 2.0 04/07/18 20:00 2.0 04/07/18 20:00 88 04/07/18 20:00 97.4 87 24 104/66 (79) 99 97.4 04/07/18 19:43 84 20 99 Nasal Cannula 2.0 28 04/07/18 19:34 Nasal Cannula 2.0 28 04/07/18 19:34 89 22 98 Nasal Cannula 2.0 28 04/07/18 19:33 98 Nasal Cannula 2.0 28 04/07/18 16:00 Nasal Cannula 2.0 04/07/18 16:00 84 04/07/18 16:00 98.1 91 22 122/71 (88) 97 98.1 04/07/18 16:00 2.0 04/07/18 13:46 83 20 97 Nasal Cannula 28 04/07/18 13:35 80 22 92 Nasal Cannula 28 04/07/18 13:25 75 22 98 04/07/18 12:00 85 04/07/18 12:00 98.1 75 22 102/60 (74) 93 98.1 04/07/18 12:00 Nasal Cannula 2.0 04/07/18 12:00 2.0 04/07/18 10:32 70 20 99 04/07/18 08:35 78 22 99 04/07/18 08:29 83 20 100 Nasal Cannula 28 04/07/18 08:20 100 Nasal Cannula 2.0 28 04/07/18 08:20 Nasal Cannula 2.0 28 04/07/18 08:20 82 20 96 Nasal Cannula 28 04/07/18 08:20 83 20 100 04/07/18 08:00 80 04/07/18 08:00 2.0 04/07/18 08:00 97.9 86 20 104/60 (75) 97 97.9 04/07/18 08:00 Nasal Cannula 2.0 Intake and Output 04/07/18 04/08/18 19:00 07:00 Intake Total 180 ml 759 ml Output Total 800 ml 850 ml Balance -620 ml -91 ml Free Water 60 ml 50 ml IV Total 389 ml Tube Feeding 120 ml 320 ml Output Urine Total 800 ml 850 ml # Bowel Movements 1 Laboratory Tests 04/08/18 03:16: White Blood Count 9.1, Red Blood Count 3.64L, Hemoglobin 9.2L, Hematocrit 30.2L , Mean Corpuscular Volume 83, Mean Corpuscular Hemoglobin 25.2L, Mean Corpuscular Hemoglobin Concent 30.3L, Red Cell Distribution Width 15.6H, Platelet Count 479H, Mean Platelet Volume 6.5, Neutrophils (%) (Auto) , Lymphocytes (%) (Auto) , Monocytes (%) (Auto) , Eosinophils (%) (Auto) , Basophils (%) (Auto) , Sodium Level 144, Potassium Level 3.3L, Chloride Level 106, Carbon Dioxide Level 31, Anion Gap 7, Blood Urea Nitrogen 13, Creatinine 0.5L, Estimat Glomerular Filtration Rate > 60, Glucose Level 156H, Calcium Level 8.3L Height (Feet): 5 Height (Inches): 5.00 Weight (Pounds): 120 General Appearance: no apparent distress Neck: normal alignment Cardiovascular: normal rate Respiratory/Chest: decreased breath sounds Abdomen: normal bowel sounds Objective Current Medications Medications (Trade) Dose Ordered Sig/Briseida Route PRN Reason Start Time Stop Time Status Last Admin Dose Admin Acetaminophen (Tylenol) 650 mg Q4H PRN ORAL Mild Pain/Temp > 100.5 04/04/18 15:04 05/04/18 14:59 Albuterol/ Ipratropium (Albuterol/ Ipratropium) 3 ml Q4H PRN HHN Shortness of Breath 04/04/18 22:45 04/09/18 22:44 Albuterol/ Ipratropium (Albuterol/ Ipratropium) 3 ml Q6HRT HHN 04/05/18 01:00 04/10/18 00:59 04/08/18 00:36 Dextrose (Dextrose 50%) 25 ml STAT PRN IV Hypoglycemia 04/05/18 07:45 05/05/18 07:44 Dextrose (Dextrose 50%) 50 ml STAT PRN IV Hypoglycemia 04/05/18 07:45 05/05/18 07:44 Famotidine (Pepcid) 20 mg BID GT 04/04/18 18:00 05/04/18 17:59 04/07/18 17:44 Heparin Sodium (Porcine) (Heparin 5000 units/ml) 5,000 units EVERY 12 HOURS SUBQ 04/05/18 09:00 05/05/18 08:59 04/07/18 20:08 Insulin Aspart (NovoLOG) BEFORE MEALS AND HS SUBQ 04/05/18 11:30 05/05/18 11:29 04/08/18 05:45 Iopamidol (Isovue-370 150ml) 150 ml NOW PRN INJ Radiology Procedure 04/07/18 18:45 04/09/18 18:40 Levofloxacin (Levaquin) 500 mg Q24H GT 04/05/18 17:00 04/12/18 16:59 04/07/18 17:44 Meropenem 500 mg/ Sodium Chloride 55 ml @ 110 mls/hr EVERY 8 HOURS IVPB 04/07/18 14:00 04/12/18 13:59 04/08/18 05:44 Vancomycin HCl (Vanco rx to dose) 1 ea DAILY PRN MISC Per rx protocol 04/04/18 19:30 05/04/18 19:29 Vancomycin/Sodium Chloride 250 ml @ 167 mls/hr Q12H IVPB 04/05/18 23:00 04/10/18 22:59 04/07/18 22:49 Item Value Date Time Bedside Blood Glucose 185 mg/dl H 04/08/18 0545 Bedside Blood Glucose 123 mg/dl H 04/07/18 2334 Bedside Blood Glucose 106 mg/dl 04/07/182005 Bedside Blood Glucose 114 mg/dl 04/07/18 1800 Bedside Blood Glucose 93 mg/dl 04/07/18 1200 Bedside Blood Glucose 101 mg/dl 04/07/18 0533 Tello Parker MD Apr 08, 2018 06:50
[2018-04-08 08:00] VITALS: BP 110/54
--- NOTE | 2018-04-08 08:45 | Pulmonology Progress Note ---
Assessment/Plan Problems: (1) Multifocal pneumonia (2) Respiratory failure (3) Pyelonephritis (4) UTI (urinary tract infection) (5) Acute renal failure (6) Sepsis (7) Diabetes mellitus out of control (8) Proteinuria (9) HCAP (healthcare-associated pneumonia) (10) Decubitus skin ulcer Assessment/Plan Acute hypoxemic and Chronic respiratory failure B pulmonary infiltrates, likely HCAP Elevated D-dimer with neg Duplex and IP VQ Hypotension - resolved GRADY - improved Hypernatremia - improved Dementia/CVA NHR Dyphagia HTN, CAD PLAN: Optimize pulmonary hygiene/mobilize as tolerated PRN O2 VQ IP, prelim CT-A neg, F/U final report Abx per ID RTC and PRN HHN's Monitor volumes and renal function DVT Px: Hep SQ TF's DNAR/DNI, BiPAP Ok Continue to discuss GOC Subjective Allergies: Coded Allergies: CEFTRIAXONE (Verified Allergy, Unknown, 04/04/18) Subjective AFVSS, stable O2 needs, VQ IP, prelim CT-A neg, duplex neg No cough, no SOB, no wheezing, no F/C Objective Last 24 Hour Vital Signs Date Time Temp Pulse Resp B/P (MAP) Pulse Ox O2 Delivery O2 Flow Rate FiO2 04/08/18 08:00 Nasal Cannula 2.0 04/08/18 08:00 2.0 04/08/18 07:20 84 24 100 Nasal Cannula 2.0 04/08/18 07:12 97 Nasal Cannula 2.0 04/08/18 07:12 Nasal Cannula 2.0 04/08/18 07:09 86 24 97 Nasal Cannula 2.0 04/08/18 05:28 86 22 98 2.0 28 04/08/18 04:00 28 04/08/18 04:00 97.7 87 26 115/70 (85) 98 97.7 04/08/18 04:00 86 04/08/18 04:00 Nasal Cannula 2.0 04/08/18 02:35 82 21 99 Full Face 30 04/08/18 00:43 89 20 99 Bi-pap 30 04/08/18 00:35 82 24 98 Bi-pap 30 04/08/18 00:34 87 24 98 Facial 30 04/08/18 00:00 28 04/08/18 00:00 97.3 86 22 112/60 (77) 98 97.3 04/08/18 00:00 Nasal Cannula 2.0 04/08/18 00:00 87 04/07/18 22:30 88 28 98 Facial 35 04/07/18 20:00 Nasal Cannula 2.0 04/07/18 20:00 2.0 04/07/18 20:00 88 04/07/18 20:00 97.4 87 24 104/66 (79) 99 97.4 04/07/18 19:43 84 20 99 Nasal Cannula 2.0 28 04/07/18 19:34 Nasal Cannula 2.0 28 04/07/18 19:34 89 22 98 Nasal Cannula 2.0 28 04/07/18 19:33 98 Nasal Cannula 2.0 04/07/18 16:00 Nasal Cannula 2.0 04/07/18 16:00 84 04/07/18 16:00 98.1 91 22 122/71 (88) 97 98.1 04/07/18 16:00 2.0 04/07/18 13:46 83 20 97 Nasal Cannula 28 04/07/18 13:35 80 22 92 Nasal Cannula 28 04/07/18 13:25 75 22 98 04/07/18 12:00 85 04/07/18 12:00 98.1 75 22 102/60 (74) 93 98.1 04/07/18 12:00 Nasal Cannula 2.0 04/07/18 12:00 2.0 04/07/18 10:32 70 20 99 Intake and Output 04/07/18 04/08/18 19:00 07:00 Intake Total 180 ml 914 ml Output Total 800 ml 850 ml Balance -620 ml 64 ml Free Water 60 ml 50 ml IV Total 499 ml Tube Feeding 120 ml 365 ml Output Urine Total 800 ml 850 ml # Bowel Movements 1 1 General Appearance: cachetic HEENT: normocephalic, atraumatic, anicteric, mucous membranes moist Respiratory/Chest: chest wall non-tender, rhonchi Cardiovascular: normal peripheral pulses, normal rate, regular rhythm Abdomen: normal bowel sounds, soft, non tender, no organomegaly, non distended , no mass Extremities: no cyanosis, no clubbing, no edema Microbiology Date/Time Source Procedure Growth Status 04/05/18 14:30 Sputum Gram Stain - Final Resulted 04/05/18 14:30 Sputum Culture - Preliminary Gram Negative Bacillus 1 Gram Negative Bacillus 2 Resulted 04/05/18 22:00 Sacral Wound Gram Stain - Final Resulted 04/05/18 22:00 Sacral Wound Wound Culture - Preliminary Resulted Laboratory Tests 04/08/18 03:16: White Blood Count 9.1, Red Blood Count 3.64L, Hemoglobin 9.2L, Hematocrit 30.2L , Mean Corpuscular Volume 83, Mean Corpuscular Hemoglobin 25.2L, Mean Corpuscular Hemoglobin Concent 30.3L, Red Cell Distribution Width 15.6H, Platelet Count 479H, Mean Platelet Volume 6.5, Neutrophils (%) (Auto) , Lymphocytes (%) (Auto) , Monocytes (%) (Auto) , Eosinophils (%) (Auto) , Basophils (%) (Auto) , Sodium Level 144, Potassium Level 3.3L, Chloride Level 106, Carbon Dioxide Level 31, Anion Gap 7, Blood Urea Nitrogen 13, Creatinine 0.5L, Estimat Glomerular Filtration Rate > 60, Glucose Level 156H, Calcium Level 8.3L Current Medications Medications (Trade) Dose Ordered Sig/Briseida Route PRN Reason Start Time Stop Time Status Last Admin Dose Admin Acetaminophen (Tylenol) 650 mg Q4H PRN ORAL Mild Pain/Temp > 100.5 04/04/18 15:04 05/04/18 14:59 Albuterol/ Ipratropium (Albuterol/ Ipratropium) 3 ml Q4H PRN HHN Shortness of Breath 04/04/18 22:45 04/09/18 22:44 Albuterol/ Ipratropium (Albuterol/ Ipratropium) 3 ml Q6HRT HHN 04/05/18 01:00 04/10/18 00:59 04/08/18 07:09 Dextrose (Dextrose 50%) 25 ml STAT PRN IV Hypoglycemia 04/05/18 07:45 05/05/18 07:44 Dextrose (Dextrose 50%) 50 ml STAT PRN IV Hypoglycemia 04/05/18 07:45 05/05/18 07:44 Famotidine (Pepcid) 20 mg BID GT 04/04/18 18:00 05/04/18 17:59 04/07/18 17:44 Heparin Sodium (Porcine) (Heparin 5000 units/ml) 5,000 units EVERY 12 HOURS SUBQ 04/05/18 09:00 05/05/18 08:59 04/07/18 20:08 Insulin Aspart (NovoLOG) BEFORE MEALS AND HS SUBQ 04/05/18 11:30 05/05/18 11:29 04/08/18 05:45 Iopamidol (Isovue-370 150ml) 150 ml NOW PRN INJ Radiology Procedure 04/07/18 18:45 04/09/18 18:40 Levofloxacin (Levaquin) 500 mg Q24H GT 04/05/18 17:00 04/12/18 16:59 04/07/18 17:44 Meropenem 500 mg/ Sodium Chloride 55 ml @ 110 mls/hr EVERY 8 HOURS IVPB 04/07/18 14:00 04/12/18 13:59 04/08/18 05:44 Potassium Chloride 100 ml @ 100 mls/hr Q1H IVPB 04/08/18 09:00 04/08/18 12:59 Vancomycin HCl (Vanco rx to dose) 1 ea DAILY PRN MISC Per rx protocol 04/04/18 19:30 05/04/18 19:29 Vancomycin/Sodium Chloride 250 ml @ 167 mls/hr Q12H IVPB 04/05/18 23:00 04/10/18 22:59 04/07/18 22:49 Yrn Buckley MD Apr 08, 2018 08:45
[2018-04-08] MEDS: Heparin 5000 units/ml inj SUBQ SCH ×2 (09:19→21:44)
--- NOTE | 2018-04-08 10:06 | Nephrology Progress Note ---
Assessment/Plan Problem List: (1) Respiratory failure (2) Diabetes mellitus out of control (3) Acute renal failure (4) Proteinuria Assessment Acute respiratory failure- Hypoxia - Renal failure- Proteinuria- Hypoalbuminemia Anemia- UTI- Cachexia , Malnutrition- PEG- HypoTension Plan Fluid challenge- respiratory support- Antibiotics Monitor renal parameters K Phos Mag supplement as needed per orders Subjective ROS Limited/Unobtainable: No Objective Objective Last 24 Hour Vital Signs Date Time Temp Pulse Resp B/P (MAP) Pulse Ox O2 Delivery O2 Flow Rate FiO2 04/08/18 08:00 Nasal Cannula 2.0 04/08/18 08:00 2.0 04/08/18 07:20 84 24 100 Nasal Cannula 2.0 04/08/18 07:12 97 Nasal Cannula 2.0 04/08/18 07:12 Nasal Cannula 2.0 04/08/18 07:09 86 24 97 Nasal Cannula 2.0 04/08/18 05:28 86 22 98 2.0 04/08/18 04:00 28 04/08/18 04:00 97.7 87 26 115/70 (85) 98 97.7 04/08/18 04:00 86 04/08/18 04:00 Nasal Cannula 2.0 04/08/18 02:35 82 21 99 Full Face 30 04/08/18 00:43 89 20 99 Bi-pap 30 04/08/18 00:35 82 24 98 Bi-pap 30 04/08/18 00:34 87 24 98 Facial 30 04/08/18 00:00 28 04/08/18 00:00 97.3 86 22 112/60 (77) 98 97.3 04/08/18 00:00 Nasal Cannula 2.0 04/08/18 00:00 87 04/07/18 22:30 88 28 98 Facial 35 04/07/18 20:00 Nasal Cannula 2.0 04/07/18 20:00 2.0 04/07/18 20:00 88 04/07/18 20:00 97.4 87 24 104/66 (79) 99 97.4 04/07/18 19:43 84 20 99 Nasal Cannula 2.0 04/07/18 19:34 Nasal Cannula 2.0 04/07/18 19:34 89 22 98 Nasal Cannula 2.0 28 8/27/18 19:33 98 Nasal Cannula 2.0 28 04/07/18 16:00 Nasal Cannula 2.0 04/07/18 16:00 84 04/07/18 16:00 98.1 91 22 122/71 (88) 97 98.1 04/07/18 16:00 2.0 04/07/18 13:46 83 20 97 Nasal Cannula 28 04/07/18 13:35 80 22 92 Nasal Cannula 28 04/07/18 13:25 75 22 98 04/07/18 12:00 85 04/07/18 12:00 98.1 75 22 102/60 (74) 93 98.1 04/07/18 12:00 Nasal Cannula 2.0 04/07/18 12:00 2.0 04/07/18 10:32 70 20 99 Intake and Output 04/07/18 04/08/18 19:00 07:00 Intake Total 180 ml 914 ml Output Total 800 ml 850 ml Balance -620 ml 64 ml Free Water 60 ml 50 ml IV Total 499 ml Tube Feeding 120 ml 365 ml Output Urine Total 800 ml 850 ml # Bowel Movements 1 1 Laboratory Tests 04/08/18 03:16: White Blood Count 9.1, Red Blood Count 3.64L, Hemoglobin 9.2L, Hematocrit 30.2L , Mean Corpuscular Volume 83, Mean Corpuscular Hemoglobin 25.2L, Mean Corpuscular Hemoglobin Concent 30.3L, Red Cell Distribution Width 15.6H, Platelet Count 479H, Mean Platelet Volume 6.5, Neutrophils (%) (Auto) , Lymphocytes (%) (Auto) , Monocytes (%) (Auto) , Eosinophils (%) (Auto) , Basophils (%) (Auto) , Sodium Level 144, Potassium Level 3.3L, Chloride Level 106, Carbon Dioxide Level 31, Anion Gap 7, Blood Urea Nitrogen 13, Creatinine 0.5L, Estimat Glomerular Filtration Rate > 60, Glucose Level 156H, Calcium Level 8.3L Height (Feet): 5 Height (Inches): 5.00 Weight (Pounds): 120 General Appearance: no apparent distress, lethargic Cardiovascular: normal rate Respiratory/Chest: decreased breath sounds Abdomen: distended Objective no change Chava Dwyer MD Apr 08, 2018 10:06
[2018-04-08] MEDS ORDERED: Albuterol/Ipratropium 3ml neb HHN PRN (11:15)
[2018-04-08] MEDS: Vancomycin 750mg/NS 250ml 250 ML IVPB SCH ×2 (11:46→23:36)
--- NOTE | 2018-04-08 11:59 | Consultation ---
History of Present Illness General Date patient seen: Apr 07, 2018 Chief Complaint: Dyspnea/Respdistress Reason for Consultation: sacral / hip wounds Present Illness HPI 68-year-old male from [facility], presented with increased shortness of breath and hypoxia came to [place] ER, diagnosed with pneumonia, sepsis, hypoxia. the pt has waxing and waning of consciousness Allergies: Coded Allergies: CEFTRIAXONE (Verified Allergy, Unknown, 04/04/18) Medication History Scheduled Ascorbic Acid* (Vitamin C*), 500 MG GT DAILY, (Reported) Cranberry Extract (Cranberry Extract), 1 CAP GT BID, (Reported) Donepezil HCl (Aricept), 10 MG GT BEDTIME, (Reported) Dutasteride (Avodart), 0.5 MG GT DAILY, (Reported) Insulin Glargine (Lantus), 31 SUBQ BEDTIME, (Reported) Multivitamin With Minerals (Multivitamins With Minerals*), 1 TAB GT DAILY, ( Reported) Tamsulosin Hcl (Tamsulosin Hcl*), 0.4 MG GT BEDTIME, (Reported) Scheduled PRN Acetaminophen* (Acetaminophen 325MG Tablet*), 650 MG GT Q4H PRN for wound care, (Reported) Acetaminophen* (Tylenol Extra Strength*), 650 MG GT Q4HR PRN for Mild Pain/Temp > 100.5, (Reported) Acetaminophen* (Acetaminophen 325MG Tablet*), 650 MG GT Q4H PRN for Fever/ Headache/Mild Pain, (Reported) Arginine/Ascorbate Sod/Abigail AC (Arginaid Powder), 1 EACH GT BID PRN for wound healing, (Reported) Ipratropium Isabella 0.5MG/2.5ML (Ipratropium Isabella 0.5MG/2.5ML), 0.5 MG HHN Q4HR PRN for Shortness of Breath, (Reported) Polyvinyl Alcohol (Liquitears), 1 DRP OP EVERY 4 HOURS PRN for Dry Eyes, ( Reported) Miscellaneous Medications Collagenase Clostridium Hist. (Collagenase), 1 EACH MC, (Reported) Insulin Aspart* (Novolog*), 0 SUBQ, (Reported) Silver Sulfadiazine (Silvadene), 20 GM TP, (Reported) Patient History Limited by: medical condition History Provided By: Medical Record, PMD Healthcare decision maker Belindakenny Rivero (daughter) Resuscitation status Do Not Resuscitate Advanced Directive on File No Past Medical/Surgical History Past Medical/Surgical History: (1) Pyelonephritis (2) Respiratory failure (3) Sepsis (4) Diabetes mellitus out of control (5) Multifocal pneumonia (6) Acute renal failure (7) Proteinuria (8) UTI (urinary tract infection) (9) HCAP (healthcare-associated pneumonia) (10) Decubitus skin ulcer (11) Sacral decubitus ulcer, stage IV (12) Decubitus ulcer of left hip, stage 4 (13) Decubitus ulcer of right hip, stage 3 Review of Systems Psychiatric: Reports: anxiety, depressed feelings Physical Exam Last 24 Hour Vital Signs Date Time Temp Pulse Resp B/P (MAP) Pulse Ox O2 Delivery O2 Flow Rate FiO2 04/08/18 08:00 Nasal Cannula 2.0 04/08/18 08:00 85 04/08/18 08:00 97.9 83 22 110/54 (72) 98 97.9 04/08/18 08:00 2.0 04/08/18 07:20 84 24 100 Nasal Cannula 2.0 04/08/18 07:12 97 Nasal Cannula 2.0 28 04/08/18 07:12 Nasal Cannula 2.0 28 04/08/18 07:09 86 24 97 Nasal Cannula 2.0 04/08/18 05:28 86 22 98 2.0 28 04/08/18 04:00 28 04/08/18 04:00 97.7 87 26 115/70 (85) 98 97.7 04/08/18 04:00 86 04/08/18 04:00 Nasal Cannula 2.0 04/08/18 02:35 82 21 99 Full Face 30 04/08/18 00:43 89 20 99 Bi-pap 30 04/08/18 00:35 82 24 98 Bi-pap 30 04/08/18 00:34 87 24 98 Facial 30 04/08/18 00:00 28 04/08/18 00:00 97.3 86 22 112/60 (77) 98 97.3 04/08/18 00:00 Nasal Cannula 2.0 04/08/18 00:00 87 04/07/18 22:30 88 28 98 Facial 35 04/07/18 20:00 Nasal Cannula 2.0 04/07/18 20:00 2.0 04/07/18 20:00 88 04/07/18 20:00 97.4 87 24 104/66 (79) 99 97.4 04/07/18 19:43 84 20 99 Nasal Cannula 2.0 04/07/18 19:34 Nasal Cannula 2.0 28 04/07/18 19:34 89 22 98 Nasal Cannula 2.0 28 04/07/18 19:33 98 Nasal Cannula 2.0 28 04/07/18 16:00 Nasal Cannula 2.0 04/07/18 16:00 84 04/07/18 16:00 98.1 91 22 122/71 (88) 97 98.1 04/07/18 16:00 2.0 04/07/18 13:46 83 20 97 Nasal Cannula 04/07/18 13:35 80 22 92 Nasal Cannula 04/07/18 13:25 75 22 98 04/07/18 12:00 85 04/07/18 12:00 98.1 75 22 102/60 (74) 93 98.1 04/07/18 12:00 Nasal Cannula 2.0 04/07/18 12:00 2.0 Intake and Output 04/07/18 04/08/18 19:00 07:00 Intake Total 180 ml 914 ml Output Total 800 ml 850 ml Balance -620 ml 64 ml Free Water 60 ml 50 ml IV Total 499 ml Tube Feeding 120 ml 365 ml Output Urine Total 800 ml 850 ml # Bowel Movements 1 1 Laboratory Tests Test 04/08/18 03:16 White Blood Count 9.1 K/UL (4.8-10.8) Red Blood Count 3.64 M/UL (4.70-6.10) L Hemoglobin 9.2 G/DL (14.2-18.0) L Hematocrit 30.2 % (42.0-52.0) L Mean Corpuscular Volume 83 FL (80-99) Mean Corpuscular Hemoglobin 25.2 PG (27.0-31.0) L Mean Corpuscular Hemoglobin Concent 30.3 G/DL (32.0-36.0) L Red Cell Distribution Width 15.6 % (11.6-14.8) H Platelet Count 479 K/UL (150-450) H Mean Platelet Volume 6.5 FL (6.5-10.1) Neutrophils (%) (Auto) % (45.0-75.0) Lymphocytes (%) (Auto) % (20.0-45.0) Monocytes (%) (Auto) % (1.0-10.0) Eosinophils (%) (Auto) % (0.0-3.0) Basophils (%) (Auto) % (0.0-2.0) Sodium Level 144 MMOL/L (136-145) Potassium Level 3.3 MMOL/L (3.5-5.1) L Chloride Level 106 MMOL/L (98-107) Carbon Dioxide Level 31 MMOL/L (21-32) Anion Gap 7 mmol/L (5-15) Blood Urea Nitrogen 13 mg/dL (7-18) Creatinine 0.5 MG/DL (0.55-1.30) L Estimat Glomerular Filtration Rate > 60 mL/min (>60) Glucose Level 156 MG/DL (74-106) H Calcium Level 8.3 MG/DL (8.5-10.1) L Height (Feet): 5 Height (Inches): 5.00 Weight (Pounds): 120 Medications Current Medications Medications (Trade) Dose Ordered Sig/Briseida Route PRN Reason Start Time Stop Time Status Last Admin Dose Admin Acetaminophen (Tylenol) 650 mg Q4H PRN ORAL Mild Pain/Temp > 100.5 04/04/18 15:04 05/04/18 14:59 Albuterol/ Ipratropium (Albuterol/ Ipratropium) 3 ml Q4H PRN HHN Shortness of Breath 04/08/18 11:15 04/13/18 11:14 Albuterol/ Ipratropium (Albuterol/ Ipratropium) 3 ml Q6HRT HHN 04/05/18 01:00 04/10/18 00:59 04/08/18 07:09 Dextrose (Dextrose 50%) 25 ml STAT PRN IV Hypoglycemia 04/05/18 07:45 05/05/18 07:44 Dextrose (Dextrose 50%) 50 ml STAT PRN IV Hypoglycemia 04/05/18 07:45 05/05/18 07:44 Famotidine (Pepcid) 20 mg BID GT 04/04/18 18:00 05/04/18 17:59 04/08/18 09:17 Heparin Sodium (Porcine) (Heparin 5000 units/ml) 5,000 units EVERY 12 HOURS SUBQ 04/05/18 09:00 05/05/18 08:59 04/08/18 09:19 Insulin Aspart (NovoLOG) BEFORE MEALS AND HS SUBQ 04/05/18 11:30 05/05/18 11:29 04/08/18 05:45 Iopamidol (Isovue-370 150ml) 150 ml NOW PRN INJ Radiology Procedure 04/07/18 18:45 04/09/18 18:40 Levofloxacin (Levaquin) 500 mg Q24H GT 04/05/18 17:00 04/12/18 16:59 04/07/18 17:44 Meropenem 500 mg/ Sodium Chloride 55 ml @ 110 mls/hr EVERY 8 HOURS IVPB 04/07/18 14:00 04/12/18 13:59 04/08/18 05:44 Potassium Chloride 100 ml @ 100 mls/hr Q1H IVPB 04/08/18 09:00 04/08/18 12:59 04/08/18 11:45 Vancomycin HCl (Vanco rx to dose) 1 ea DAILY PRN MISC Per rx protocol 04/04/18 19:30 05/04/18 19:29 Vancomycin/Sodium Chloride 250 ml @ 167 mls/hr Q12H IVPB 04/05/18 23:00 04/10/18 22:59 04/08/18 11:46 Assessment/Plan Assessment/Plan encephalopathy due to [facility] dementia seroquel prShawn Bravo MD Apr 08, 2018 11:58
[2018-04-08 12:00] VITALS: BP 114/58
--- NOTE | 2018-04-08 12:02 | Diagnostic Imaging Report ---
ndication: Chest pain Technique: IV administration nonionic contrast. Spiral acquisitions obtained from the lung bases to the lung apices. Multiplanar and 3-D reconstructions were generated. Total dose length product 548 mGycm. CTDIvol(s) 12 x 3, 16 mGy. Dose reduction achieved using automated exposure control Comparison: none Findings: Exam is somewhat limited due to respiratory motion artifact, which precludes exclusion of small peripheral emboli in the lower lobes. Pulmonary arteries are well opacified. No definite intraluminal filling defects or other findings to suggest acute pulmonary embolus demonstrated. Normal caliber pulmonary arteries. No evidence of right ventricular dilatation. No evidence of thoracic aortic aneurysm or dissection. There is considerable hard and soft plaque in the lewis of the thoracic aorta. Normal caliber great neck vessels. Variant anatomy of common origin of the right brachiocephalic and left common carotid arteries. The lungs demonstrate extensive diffuse patchy airspace disease. Appearance is suggestive of infiltrates. However, there is considerable bronchiectasis in both lower lobes, raising possibility of significant component of chronic interstitial disease and fibrosis. There is a small amount of pleural fluid on the left The heart size is normal. No pericardial effusion. No mediastinal or hilar mass or adenopathy. Included portions of the thyroid are unremarkable. The esophagus is gas-filled, otherwise unremarkable. The included upper abdominal viscera are unremarkable. Impression: Somewhat limited exam, as described. No gross large vessel pulmonary embolus demonstrated Extensive pulmonary parenchymal disease, as described. Much of this likely represents acute consolidation or pulmonary edema. However, the presence of considerable lower lobe bronchiectasis raises possibility of a significant chronic component as well. Small left pleural effusion This agrees with the preliminary interpretation provided overnight by [facility] teleradiology service. The CT scanner at [facility] is accredited by the [employer] and the scans are performed using protocols designed to limit radiation exposure to as low as reasonably achievable to attain images of sufficient resolution adequate for diagnostic evaluation.
--- NOTE | 2018-04-08 12:46 | Infectious Diseases Prog Note ---
Assessment/Plan Assessment/Plan A: Sepsis Pneumonia Bonchiectasis UTI with Proteus ESBL Advanced dementia DM HPN P; Continue Vancomycin , Levaquin & Meropenem will f/u sputum culture Subjective ROS Limited/Unobtainable: Yes Allergies: Coded Allergies: CEFTRIAXONE (Verified Allergy, Unknown, 04/04/18) Objective Vital Signs Last 24 Hour Vital Signs Date Time Temp Pulse Resp B/P (MAP) Pulse Ox O2 Delivery O2 Flow Rate FiO2 04/08/18 12:41 84 22 98 Nasal Cannula 2.0 28 04/08/18 12:32 85 22 98 Nasal Cannula 2.0 28 04/08/18 08:00 Nasal Cannula 2.0 04/08/18 08:00 85 04/08/18 08:00 97.9 83 22 110/54 (72) 98 97.9 04/08/18 08:00 2.0 04/08/18 07:20 84 24 100 Nasal Cannula 2.0 04/08/18 07:12 97 Nasal Cannula 2.0 04/08/18 07:12 Nasal Cannula 2.0 04/08/18 07:09 86 24 97 Nasal Cannula 2.0 28 04/08/18 05:28 86 22 98 2.0 28 04/08/18 04:00 28 04/08/18 04:00 97.7 87 26 115/70 (85) 98 97.7 04/08/18 04:00 86 04/08/18 04:00 Nasal Cannula 2.0 04/08/18 02:35 82 21 99 Full Face 30 04/08/18 00:43 89 20 99 Bi-pap 30 04/08/18 00:35 82 24 98 Bi-pap 30 04/08/18 00:34 87 24 98 Facial 30 04/08/18 00:00 28 04/08/18 00:00 97.3 86 22 112/60 (77) 98 97.3 04/08/18 00:00 Nasal Cannula 2.0 04/08/18 00:00 87 04/07/18 22:30 88 28 98 Facial 35 04/07/18 20:00 Nasal Cannula 2.0 04/07/18 20:00 2.0 04/07/18 20:00 88 04/07/18 20:00 97.4 87 24 104/66 (79) 99 97.4 04/07/18 19:43 84 20 99 Nasal Cannula 2.0 04/07/18 19:34 Nasal Cannula 2.0 04/07/18 19:34 89 22 98 Nasal Cannula 2.0 04/07/18 19:33 98 Nasal Cannula 2.0 04/07/18 16:00 Nasal Cannula 2.0 04/07/18 16:00 84 04/07/18 16:00 98.1 91 22 122/71 (88) 97 98.1 04/07/18 16:00 2.0 04/07/18 13:46 83 20 97 Nasal Cannula 28 04/07/18 13:35 80 22 92 Nasal Cannula 28 04/07/18 13:25 75 22 98 Height (Feet): 5 Height (Inches): 5.00 Weight (Pounds): 120 General Appearance: no acute distress HEENT: normocephalic Respiratory/Chest: rhonchi - bilaterally Cardiovascular: normal rate Abdomen: soft, non tender, other - GT feeding Extremities: no edema Neurologic/Psychiatric: disoriented Musculoskeletal: atrophy Microbiology Date/Time Source Procedure Growth Status 04/05/18 14:30 Sputum Gram Stain - Final Resulted 04/05/18 14:30 Sputum Culture - Preliminary Gram Negative Bacillus 1 Gram Negative Bacillus 2 Resulted 04/05/18 22:00 Sacral Wound Gram Stain - Final Resulted 04/05/18 22:00 Wound Culture - Preliminary Gram Negative Bacillus 1 Gram Negative Bacillus 2 Staphylococcus Aureus Resulted Laboratory Tests Test 04/08/18 03:16 White Blood Count 9.1 K/UL (4.8-10.8) Red Blood Count 3.64 M/UL (4.70-6.10) L Hemoglobin 9.2 G/DL (14.2-18.0) L Hematocrit 30.2 % (42.0-52.0) L Mean Corpuscular Volume 83 FL (80-99) Mean Corpuscular Hemoglobin 25.2 PG (27.0-31.0) L Mean Corpuscular Hemoglobin Concent 30.3 G/DL (32.0-36.0) L Red Cell Distribution Width 15.6 % (11.6-14.8) H Platelet Count 479 K/UL (150-450) H Mean Platelet Volume 6.5 FL (6.5-10.1) Neutrophils (%) (Auto) % (45.0-75.0) Lymphocytes (%) (Auto) % (20.0-45.0) Monocytes (%) (Auto) % (1.0-10.0) Eosinophils (%) (Auto) % (0.0-3.0) Basophils (%) (Auto) % (0.0-2.0) Sodium Level 144 MMOL/L (136-145) Potassium Level 3.3 MMOL/L (3.5-5.1) L Chloride Level 106 MMOL/L (98-107) Carbon Dioxide Level 31 MMOL/L (21-32) Anion Gap 7 mmol/L (5-15) Blood Urea Nitrogen 13 mg/dL (7-18) Creatinine 0.5 MG/DL (0.55-1.30) L Estimat Glomerular Filtration Rate > 60 mL/min (>60) Glucose Level 156 MG/DL (74-106) H Calcium Level 8.3 MG/DL (8.5-10.1) L Current Medications Medications (Trade) Dose Ordered Sig/Briseida Route PRN Reason Start Time Stop Time Status Last Admin Dose Admin Acetaminophen (Tylenol) 650 mg Q4H PRN ORAL Mild Pain/Temp > 100.5 04/04/18 15:04 05/04/18 14:59 Albuterol/ Ipratropium (Albuterol/ Ipratropium) 3 ml Q4H PRN HHN Shortness of Breath 04/08/18 11:15 04/13/18 11:14 Albuterol/ Ipratropium (Albuterol/ Ipratropium) 3 ml Q6HRT HHN 04/05/18 01:00 04/10/18 00:59 04/08/18 12:32 Dextrose (Dextrose 50%) 25 ml STAT PRN IV Hypoglycemia 04/05/18 07:45 05/05/18 07:44 Dextrose (Dextrose 50%) 50 ml STAT PRN IV Hypoglycemia 04/05/18 07:45 05/05/18 07:44 Famotidine (Pepcid) 20 mg BID GT 04/04/18 18:00 05/04/18 17:59 04/08/18 09:17 Heparin Sodium (Porcine) (Heparin 5000 units/ml) 5,000 units EVERY 12 HOURS SUBQ 04/05/18 09:00 05/05/18 08:59 8/28/18 09:19 Insulin Aspart (NovoLOG) BEFORE MEALS AND HS SUBQ 04/05/18 11:30 05/05/18 11:29 04/08/18 11:59 Iopamidol (Isovue-370 150ml) 150 ml NOW PRN INJ Radiology Procedure 04/07/18 18:45 04/09/18 18:40 Levofloxacin (Levaquin) 500 mg Q24H GT 04/05/18 17:00 04/12/18 16:59 04/07/18 17:44 Meropenem 500 mg/ Sodium Chloride 55 ml @ 110 mls/hr EVERY 8 HOURS IVPB 04/07/18 14:00 04/12/18 13:59 04/08/18 05:44 Potassium Chloride 100 ml @ 100 mls/hr Q1H IVPB 04/08/18 09:00 04/08/18 12:59 04/08/18 11:45 Vancomycin HCl (Vanco rx to dose) 1 ea DAILY PRN MISC Per rx protocol 04/04/18 19:30 05/04/18 19:29 Vancomycin/Sodium Chloride 250 ml @ 167 mls/hr Q12H IVPB 04/05/18 23:00 04/10/18 22:59 04/08/18 11:46 Herson Palmer MD Apr 08, 2018 12:46
--- NOTE | 2018-04-08 13:43 | General Progress Note ---
Assessment/Plan Problem List: (1) Respiratory failure ICD Codes: J96.90 - Respiratory failure, unspecified, unspecified whether with hypoxia or hypercapnia SNOMED: 646567473 (2) Diabetes mellitus out of control ICD Codes: E11.65 - Type 2 diabetes mellitus with hyperglycemia SNOMED: 73621406, 857176408 (3) Multifocal pneumonia ICD Codes: J18.9 - Pneumonia, unspecified organism SNOMED: 781214777 (4) Acute renal failure ICD Codes: N17.9 - Acute kidney failure, unspecified SNOMED: 78655127 (5) UTI (urinary tract infection) ICD Codes: N39.0 - Urinary tract infection, site not specified SNOMED: 11680339 Status: stable, progressing Assessment/Plan o2 pulm tx abx ot pt diet cbc bmp am dc plan snf Subjective Constitutional: Reports: weakness Allergies: Coded Allergies: CEFTRIAXONE (Verified Allergy, Unknown, 04/04/18) All Systems: reviewed and negative except above Subjective o2nc sleepy Objective Last 24 Hour Vital Signs Date Time Temp Pulse Resp B/P (MAP) Pulse Ox O2 Delivery O2 Flow Rate FiO2 04/08/18 12:41 84 22 98 Nasal Cannula 2.0 04/08/18 12:32 85 22 98 Nasal Cannula 2.0 04/08/18 08:00 Nasal Cannula 2.0 04/08/18 08:00 85 04/08/18 08:00 97.9 83 22 110/54 (72) 98 97.9 04/08/18 08:00 2.0 04/08/18 07:20 84 24 100 Nasal Cannula 2.0 04/08/18 07:12 97 Nasal Cannula 2.0 04/08/18 07:12 Nasal Cannula 2.0 28 04/08/18 07:09 86 24 97 Nasal Cannula 2.0 04/08/18 05:28 86 22 98 2.0 28 04/08/18 04:00 28 04/08/18 04:00 97.7 87 26 115/70 (85) 98 97.7 04/08/18 04:00 86 04/08/18 04:00 Nasal Cannula 2.0 04/08/18 02:35 82 21 99 Full Face 30 04/08/18 00:43 89 20 99 Bi-pap 30 04/08/18 00:35 82 24 98 Bi-pap 30 04/08/18 00:34 87 24 98 Facial 30 04/08/18 00:00 28 04/08/18 00:00 97.3 86 22 112/60 (77) 98 97.3 04/08/18 00:00 Nasal Cannula 2.0 04/08/18 00:00 87 04/07/18 22:30 88 28 98 Facial 35 04/07/18 20:00 Nasal Cannula 2.0 04/07/18 20:00 2.0 04/07/18 20:00 88 04/07/18 20:00 97.4 87 24 104/66 (79) 99 97.4 04/07/18 19:43 84 20 99 Nasal Cannula 2.0 04/07/18 19:34 Nasal Cannula 2.0 28 04/07/18 19:34 89 22 98 Nasal Cannula 2.0 04/07/18 19:33 98 Nasal Cannula 2.0 28 04/07/18 16:00 Nasal Cannula 2.0 04/07/18 16:00 84 04/07/18 16:00 98.1 91 22 122/71 (88) 97 98.1 04/07/18 16:00 2.0 04/07/18 13:46 83 20 97 Nasal Cannula 28 Intake and Output 04/07/18 04/08/18 19:00 07:00 Intake Total 180 ml 914 ml Output Total 800 ml 850 ml Balance -620 ml 64 ml Free Water 60 ml 50 ml IV Total 499 ml Tube Feeding 120 ml 365 ml Output Urine Total 800 ml 850 ml # Bowel Movements 1 1 Laboratory Tests 04/08/18 03:16: White Blood Count 9.1, Red Blood Count 3.64L, Hemoglobin 9.2L, Hematocrit 30.2L , Mean Corpuscular Volume 83, Mean Corpuscular Hemoglobin 25.2L, Mean Corpuscular Hemoglobin Concent 30.3L, Red Cell Distribution Width 15.6H, Platelet Count 479H, Mean Platelet Volume 6.5, Neutrophils (%) (Auto) , Lymphocytes (%) (Auto) , Monocytes (%) (Auto) , Eosinophils (%) (Auto) , Basophils (%) (Auto) , Sodium Level 144, Potassium Level 3.3L, Chloride Level 106, Carbon Dioxide Level 31, Anion Gap 7, Blood Urea Nitrogen 13, Creatinine 0.5L, Estimat Glomerular Filtration Rate > 60, Glucose Level 156H, Calcium Level 8.3L Height (Feet): 5 Height (Inches): 5.00 Weight (Pounds): 120 General Appearance: lethargic EENT: normal ENT inspection Neck: normal alignment Cardiovascular: normal peripheral pulses, normal rate, regular rhythm Respiratory/Chest: chest wall non-tender, lungs clear, normal breath sounds Abdomen: normal bowel sounds, non tender, soft Extremities: normal inspection Edema: no edema noted Arm (L), no edema noted Arm (R), no edema noted Leg (L), no edema noted Leg (R), no edema noted Pedal (L), no edema noted Pedal (R), no edema noted Generalized Neurologic: motor weakness Skin: normal pigmentation, warm/dry Franky Bermudez DO Apr 08, 2018 13:43
[2018-04-08 16:00] VITALS: BP 109/64
[2018-04-08] MEDS: Levofloxacin 500mg tab GT SCH (18:21)
[2018-04-08 20:00] VITALS: BP 116/67
[2018-04-09] VITALS: BP 140/84
[2018-04-09] MEDS: Albuterol/Ipratropium 3ml neb HHN SCH ×3 (01:22→14:36)
[2018-04-09 04:00] VITALS: BP 127/61
[2018-04-09] MEDS: Meropenem 500 MG in NS 55 ML IVPB SCH (06:09)
[2018-04-09] MEDS: NovoLOG Insulin Flexpen SUBQ SCH ×3 (06:10→17:23)
--- NOTE | 2018-04-09 06:33 | General Progress Note ---
Assessment/Plan Problem List: (1) Diabetes mellitus out of control ICD Codes: E11.65 - Type 2 diabetes mellitus with hyperglycemia SNOMED: 32204159, 141085470 (2) Multifocal pneumonia ICD Codes: J18.9 - Pneumonia, unspecified organism SNOMED: 712627425 (3) Sepsis ICD Codes: A41.9 - Sepsis, unspecified organism SNOMED: 83213554 (4) Respiratory failure ICD Codes: J96.90 - Respiratory failure, unspecified, unspecified whether with hypoxia or hypercapnia SNOMED: 809178206 (5) Pyelonephritis ICD Codes: N12 - Tubulo-interstitial nephritis, not specified as acute or chronic SNOMED: 39160355 Assessment/Plan continue BG monitoring and Novolog sliding scale ac / hs add Levemir 6 units bid Subjective ROS Limited/Unobtainable: Yes Allergies: Coded Allergies: CEFTRIAXONE (Verified Allergy, Unknown, 04/04/18) Subjective events noted on BiPAP Objective Last 24 Hour Vital Signs Date Time Temp Pulse Resp B/P (MAP) Pulse Ox O2 Delivery O2 Flow Rate FiO2 04/09/18 04:43 85 26 99 Facial 28 04/09/18 04:00 98.1 83 28 127/61 (83) 99 98.1 04/09/18 04:00 Nasal Cannula 2.0 04/09/18 04:00 85 04/09/18 04:00 28 04/09/18 03:26 89 28 99 Facial 28 04/09/18 01:30 93 31 98 Bi-pap 28 04/09/18 01:21 88 28 98 Bi-pap 28 04/09/18 01:20 88 28 99 Facial 28 04/09/18 00:00 Nasal Cannula 2.0 04/09/18 00:00 99.5 96 30 140/84 (102) 99 99.5 04/09/18 00:00 30 04/09/18 00:00 93 04/08/18 22:13 95 26 99 Facial 30 04/08/18 20:00 Nasal Cannula 2.0 04/08/18 20:00 2.0 04/08/18 20:00 98.8 100 26 116/67 (83) 99 98.8 04/08/18 20:00 98 04/08/18 19:49 92 20 100 Nasal Cannula 2.0 28 04/08/18 19:42 98 Nasal Cannula 2.0 28 04/08/18 19:42 Nasal Cannula 2.0 28 04/08/18 19:41 96 20 98 Nasal Cannula 2.0 28 04/08/18 16:00 2.0 04/08/18 16:00 86 04/08/18 16:00 98.8 85 22 109/64 (79) 98 98.8 04/08/18 16:00 Nasal Cannula 2.0 04/08/18 12:41 84 22 98 Nasal Cannula 2.0 28 04/08/18 12:32 85 22 98 Nasal Cannula 2.0 28 04/08/18 12:00 Nasal Cannula 2.0 04/08/18 12:00 2.0 04/08/18 12:00 82 04/08/18 12:00 98.0 81 20 114/58 (76) 96 98.0 04/08/18 08:00 Nasal Cannula 2.0 04/08/18 08:00 85 04/08/18 08:00 97.9 83 22 110/54 (72) 98 97.9 04/08/18 08:00 2.0 04/08/18 07:20 84 24 100 Nasal Cannula 2.0 28 04/08/18 07:12 97 Nasal Cannula 2.0 28 04/08/18 07:12 Nasal Cannula 2.0 04/08/18 07:09 86 24 97 Nasal Cannula 2.0 28 Intake and Output 04/08/18 04/09/18 19:00 07:00 Intake Total 725 ml 900 ml Output Total 450 ml Balance 275 ml 900 ml Free Water 130 ml 100 ml IV Total 305 ml Tube Feeding 595 ml 495 ml Output Urine Total 450 ml # Bowel Movements 1 Height (Feet): 5 Height (Inches): 5.00 Weight (Pounds): 120 General Appearance: no apparent distress Neck: normal alignment Cardiovascular: normal rate Respiratory/Chest: decreased breath sounds Abdomen: normal bowel sounds Pelvis: normal external exam Objective Current Medications Medications (Trade) Dose Ordered Sig/Briseida Route PRN Reason Start Time Stop Time Status Last Admin Dose Admin Acetaminophen (Tylenol) 650 mg Q4H PRN ORAL Mild Pain/Temp > 100.5 04/04/18 15:04 05/04/18 14:59 04/08/18 23:38 Albuterol/ Ipratropium (Albuterol/ Ipratropium) 3 ml Q4H PRN HHN Shortness of Breath 04/08/18 11:15 04/13/18 11:14 Albuterol/ Ipratropium (Albuterol/ Ipratropium) 3 ml Q6HRT HHN 04/05/18 01:00 04/10/18 00:59 04/09/18 01:22 Dextrose (Dextrose 50%) 25 ml STAT PRN IV Hypoglycemia 04/05/18 07:45 05/05/18 07:44 Dextrose (Dextrose 50%) 50 ml STAT PRN IV Hypoglycemia 04/05/18 07:45 05/05/18 07:44 Famotidine (Pepcid) 20 mg BID GT 04/04/18 18:00 05/04/18 17:59 04/08/18 18:22 Heparin Sodium (Porcine) (Heparin 5000 units/ml) 5,000 units EVERY 12 HOURS SUBQ 04/05/18 09:00 05/05/18 08:59 04/08/18 21:44 Insulin Aspart (NovoLOG) EVERY 6 HOURS SUBQ 04/09/18 00:00 05/09/18 00:00 04/09/18 06:10 Iopamidol (Isovue-370 150ml) 150 ml NOW PRN INJ Radiology Procedure 04/07/18 18:45 04/09/18 18:40 Levofloxacin (Levaquin) 500 mg Q24H GT 04/05/18 17:00 04/12/18 16:59 04/08/18 18:21 Meropenem 500 mg/ Sodium Chloride 55 ml @ 110 mls/hr EVERY 8 HOURS IVPB 04/07/18 14:00 04/12/18 13:59 04/09/18 06:09 Vancomycin HCl (Vanco rx to dose) 1 ea DAILY PRN MISC Per rx protocol 04/04/18 19:30 05/04/18 19:29 Vancomycin/Sodium Chloride 250 ml @ 167 mls/hr Q12H IVPB 04/05/18 23:00 04/10/18 22:59 04/08/18 23:36 Item Value Date Time Bedside Blood Glucose 225 mg/dl H 04/09/18 0610 Bedside Blood Glucose 189 mg/dl H 04/08/18 2350 Bedside Blood Glucose 185 mg/dl H 04/08/18 1828 Bedside Blood Glucose 212 mg/dl H 04/08/18 1200 Tello Parker MD Apr 09, 2018 06:33
[2018-04-09 07:23] LABS: BASOPHILS % (AUTO) 0.5 % (0.0-2.0); EOSINOPHILS % (AUTO) 2.9 % (0.0-3.0); HEMOGLOBIN 8.5 G/DL (14.2-18.0); LYMPHOCYTES % (AUTO) 14.3 % (20.0-45.0); MEAN CORPUSCULAR VOLUME 84 FL (80-99); MONOCYTES % (AUTO) 4.6 % (1.0-10.0); NEUTROPHILS % (AUTO) 77.7 % (45.0-75.0); PLATELET COUNT 479 K/UL (150-450); RED BLOOD COUNT 3.32 M/UL (4.70-6.10); RED CELL DISTRIBUTION WIDTH 16.6 % (11.6-14.8); WHITE BLOOD COUNT 8.6 K/UL (4.8-10.8)
[2018-04-09 07:27] LABS: ANION GAP 2 mmol/L (5-15); BLOOD UREA NITROGEN 17 mg/dL (7-18); CALCIUM 8.7 MG/DL (8.5-10.1); CARBON DIOXIDE 34 MMOL/L (21-32); CHLORIDE 107 MMOL/L (98-107); CREATININE 0.6 MG/DL (0.55-1.30); POTASSIUM 4.3 MMOL/L (3.5-5.1); SODIUM 143 MMOL/L (136-145)
[2018-04-09 08:00] VITALS: BP 103/56
[2018-04-09] MEDS: Levemir Flexpen SUBQ SCH ×2 (08:35→17:23)
[2018-04-09] MEDS: Heparin 5000 units/ml inj SUBQ SCH (08:37)
[2018-04-09] MEDS: Vancomycin 750mg/NS 250ml 250 ML IVPB SCH (11:20)
--- NOTE | 2018-04-09 11:40 | Infectious Diseases Prog Note ---
Assessment/Plan Assessment/Plan A: Sepsis Pneumonia Bonchiectasis UTI with Proteus ESBL Advanced dementia DM HPN P; discontinue Vancomycin , Levaquin & Meropenem DS bactrim by GT for 4 days Agree with discharge to SNF May need wound debridement in near future Subjective ROS Limited/Unobtainable: Yes Allergies: Coded Allergies: CEFTRIAXONE (Verified Allergy, Unknown, 04/04/18) Objective Vital Signs Last 24 Hour Vital Signs Date Time Temp Pulse Resp B/P (MAP) Pulse Ox O2 Delivery O2 Flow Rate FiO2 04/09/18 08:00 98.5 96 22 103/56 (72) 98 98.5 04/09/18 08:00 Nasal Cannula 2.0 04/09/18 08:00 95 04/09/18 08:00 2.0 04/09/18 07:24 90 28 100 Nasal Cannula 2.0 28 04/09/18 07:19 99 Nasal Cannula 2.0 28 04/09/18 07:19 Nasal Cannula 2.0 28 04/09/18 07:16 94 33 99 Bi-pap 28 04/09/18 04:43 85 26 99 Facial 28 04/09/18 04:00 98.1 83 28 127/61 (83) 99 98.1 04/09/18 04:00 Nasal Cannula 2.0 04/09/18 04:00 85 04/09/18 04:00 28 04/09/18 03:26 89 28 99 Facial 28 04/09/18 01:30 93 31 98 Bi-pap 28 04/09/18 01:21 88 28 98 Bi-pap 28 04/09/18 01:20 88 28 99 Facial 28 04/09/18 00:00 Nasal Cannula 2.0 04/09/18 00:00 99.5 96 30 140/84 (102) 99 99.5 04/09/18 00:00 30 04/09/18 00:00 93 04/08/18 22:13 95 26 99 Facial 30 04/08/18 20:00 Nasal Cannula 2.0 04/08/18 20:00 2.0 04/08/18 20:00 98.8 100 26 116/67 (83) 99 98.8 04/08/18 20:00 98 04/08/18 19:49 92 20 100 Nasal Cannula 2.0 28 04/08/18 19:42 98 Nasal Cannula 2.0 28 /28/18 19:42 Nasal Cannula 2.0 28 04/08/18 19:41 96 20 98 Nasal Cannula 2.0 28 04/08/18 16:00 2.0 04/08/18 16:00 86 04/08/18 16:00 98.8 85 22 109/64 (79) 98 98.8 04/08/18 16:00 Nasal Cannula 2.0 04/08/18 12:41 84 22 98 Nasal Cannula 2.0 04/08/18 12:32 85 22 98 Nasal Cannula 2.0 04/08/18 12:00 Nasal Cannula 2.0 04/08/18 12:00 2.0 04/08/18 12:00 82 04/08/18 12:00 98.0 81 20 114/58 (76) 96 98.0 Height (Feet): 5 Height (Inches): 5.00 Weight (Pounds): 127 HEENT: mucous membranes moist Respiratory/Chest: other - few rhonchi Cardiovascular: normal rate Abdomen: soft, non tender, other - GT feeding Extremities: no edema Skin: ulcers, other - sacral, hips Neurologic/Psychiatric: disoriented, aphasia Laboratory Tests Test 04/09/18 05:36 04/09/18 10:05 White Blood Count 8.6 K/UL (4.8-10.8) Red Blood Count 3.32 M/UL (4.70-6.10) L Hemoglobin 8.5 G/DL (14.2-18.0) L Hematocrit 28.0 % (42.0-52.0) L Mean Corpuscular Volume 84 FL (80-99) Mean Corpuscular Hemoglobin 25.5 PG (27.0-31.0) L Mean Corpuscular Hemoglobin Concent 30.3 G/DL (32.0-36.0) L Red Cell Distribution Width 16.6 % (11.6-14.8) H Platelet Count 479 K/UL (150-450) H Mean Platelet Volume 6.3 FL (6.5-10.1) L Neutrophils (%) (Auto) 77.7 % (45.0-75.0) H Lymphocytes (%) (Auto) 14.3 % (20.0-45.0) L Monocytes (%) (Auto) 4.6 % (1.0-10.0) Eosinophils (%) (Auto) 2.9 % (0.0-3.0) Basophils (%) (Auto) 0.5 % (0.0-2.0) Sodium Level 143 MMOL/L (136-145) Potassium Level 4.3 MMOL/L (3.5-5.1) Chloride Level 107 MMOL/L (98-107) Carbon Dioxide Level 34 MMOL/L (21-32) H Anion Gap 2 mmol/L (5-15) L Blood Urea Nitrogen 17 mg/dL (7-18) Creatinine 0.6 MG/DL (0.55-1.30) Estimat Glomerular Filtration Rate > 60 mL/min (>60) Glucose Level 203 MG/DL (74-106) H Calcium Level 8.7 MG/DL (8.5-10.1) Vancomycin Level Trough 15.7 ug/mL (5.0-12.0) H Current Medications Medications (Trade) Dose Ordered Sig/Briseida Route PRN Reason Start Time Stop Time Status Last Admin Dose Admin Acetaminophen (Tylenol) 650 mg Q4H PRN ORAL Mild Pain/Temp > 100.5 04/04/18 15:04 05/04/18 14:59 04/08/18 23:38 Albuterol/ Ipratropium (Albuterol/ Ipratropium) 3 ml Q4H PRN HHN Shortness of Breath 04/08/18 11:15 04/13/18 11:14 Albuterol/ Ipratropium (Albuterol/ Ipratropium) 3 ml Q6HRT HHN 04/05/18 01:00 04/10/18 00:59 04/09/18 07:16 Dextrose (Dextrose 50%) 25 ml STAT PRN IV Hypoglycemia 04/09/18 06:45 05/09/18 06:44 Dextrose (Dextrose 50%) 50 ml STAT PRN IV Hypoglycemia 04/09/18 06:45 05/09/18 06:44 Famotidine (Pepcid) 20 mg BID GT 04/04/18 18:00 05/04/18 17:59 04/09/18 08:35 Heparin Sodium (Porcine) (Heparin 5000 units/ml) 5,000 units EVERY 12 HOURS SUBQ 04/05/18 09:00 05/05/18 08:59 8/29/18 08:37 Insulin Aspart (NovoLOG) EVERY 6 HOURS SUBQ 04/09/18 00:00 05/09/18 00:00 04/09/18 11:36 Insulin Detemir (Levemir) 6 units BID SUBQ 04/09/18 09:00 05/09/18 08:59 04/09/18 08:35 Iopamidol (Isovue-370 150ml) 150 ml NOW PRN INJ Radiology Procedure 04/07/18 18:45 04/09/18 18:40 Levofloxacin (Levaquin) 500 mg Q24H GT 04/05/18 17:00 04/12/18 16:59 04/08/18 18:21 Meropenem 500 mg/ Sodium Chloride 55 ml @ 110 mls/hr EVERY 8 HOURS IVPB 04/07/18 14:00 04/12/18 13:59 04/09/18 06:09 Vancomycin HCl (Vanco rx to dose) 1 ea DAILY PRN MISC Per rx protocol 04/04/18 19:30 05/04/18 19:29 Vancomycin/Sodium Chloride 250 ml @ 167 mls/hr Q12H IVPB 04/05/18 23:00 04/10/18 22:59 04/09/18 11:20 Herson Palmer MD Apr 09, 2018 11:40
--- NOTE | 2018-04-09 11:41 | Nephrology Progress Note ---
Assessment/Plan Problem List: (1) Respiratory failure (2) Diabetes mellitus out of control (3) Acute renal failure (4) Proteinuria Assessment Acute respiratory failure- Hypoxia - Renal failure- Proteinuria- Hypoalbuminemia Anemia- UTI- Cachexia , Malnutrition- PEG- HypoTension Plan Fluid challenge as needed respiratory support- Antibiotics Monitor renal parameters K Phos Mag supplement as needed per orders ? DC Stable from renal stand Subjective ROS Limited/Unobtainable: No Constitutional: Reports: malaise Objective Objective Last 24 Hour Vital Signs Date Time Temp Pulse Resp B/P (MAP) Pulse Ox O2 Delivery O2 Flow Rate FiO2 04/09/18 08:00 98.5 96 22 103/56 (72) 98 98.5 04/09/18 08:00 Nasal Cannula 2.0 04/09/18 08:00 95 04/09/18 08:00 2.0 04/09/18 07:24 90 28 100 Nasal Cannula 2.0 04/09/18 07:19 99 Nasal Cannula 2.0 04/09/18 07:19 Nasal Cannula 2.0 04/09/18 07:16 94 33 99 Bi-pap 28 04/09/18 04:43 85 26 99 Facial 28 04/09/18 04:00 98.1 83 28 127/61 (83) 99 98.1 04/09/18 04:00 Nasal Cannula 2.0 04/09/18 04:00 85 04/09/18 04:00 28 04/09/18 03:26 89 28 99 Facial 28 04/09/18 01:30 93 31 98 Bi-pap 04/09/18 01:21 88 28 98 Bi-pap 28 04/09/18 01:20 88 28 99 Facial 28 04/09/18 00:00 Nasal Cannula 2.0 04/09/18 00:00 99.5 96 30 140/84 (102) 99 99.5 04/09/18 00:00 30 04/09/18 00:00 93 04/08/18 22:13 95 26 99 Facial 30 04/08/18 20:00 Nasal Cannula 2.0 04/08/18 20:00 2.0 04/08/18 20:00 98.8 100 26 116/67 (83) 99 98.8 04/08/18 20:00 98 04/08/18 19:49 92 20 100 Nasal Cannula 2.0 28 04/08/18 19:42 98 Nasal Cannula 2.0 04/08/18 19:42 Nasal Cannula 2.0 04/08/18 19:41 96 20 98 Nasal Cannula 2.0 04/08/18 16:00 2.0 04/08/18 16:00 86 04/08/18 16:00 98.8 85 22 109/64 (79) 98 98.8 04/08/18 16:00 Nasal Cannula 2.0 04/08/18 12:41 84 22 98 Nasal Cannula 2.0 04/08/18 12:32 85 22 98 Nasal Cannula 2.0 04/08/18 12:00 Nasal Cannula 2.0 04/08/18 12:00 2.0 04/08/18 12:00 82 04/08/18 12:00 98.0 81 20 114/58 (76) 96 98.0 Intake and Output 04/08/18 04/09/18 19:00 07:00 Intake Total 725 ml 1159 ml Output Total 450 ml 500 ml Balance 275 ml 659 ml Free Water 130 ml 100 ml IV Total 360 ml Tube Feeding 595 ml 699 ml Output Urine Total 450 ml 500 ml # Bowel Movements 2 Laboratory Tests 04/09/18 05:36: White Blood Count 8.6, Red Blood Count 3.32L, Hemoglobin 8.5L, Hematocrit 28.0L , Mean Corpuscular Volume 84, Mean Corpuscular Hemoglobin 25.5L, Mean Corpuscular Hemoglobin Concent 30.3L, Red Cell Distribution Width 16.6H, Platelet Count 479H, Mean Platelet Volume 6.3L, Neutrophils (%) (Auto) 77.7H, Lymphocytes (%) (Auto) 14.3L, Monocytes (%) (Auto) 4.6, Eosinophils (%) (Auto) 2.9, Basophils (%) (Auto) 0.5, Sodium Level 143, Potassium Level 4.3, Chloride Level 107, Carbon Dioxide Level 34H, Anion Gap 2L, Blood Urea Nitrogen 17, Creatinine 0.6, Estimat Glomerular Filtration Rate > 60, Glucose Level 203H, Calcium Level 8.7 04/09/18 10:05: Vancomycin Level Trough 15.7H Height (Feet): 5 Height (Inches): 5.00 Weight (Pounds): 127 General Appearance: no apparent distress Objective no change Chava Dwyer MD Apr 09, 2018 11:41
[2018-04-09 12:00] VITALS: BP 109/57
--- NOTE | 2018-04-09 12:30 | Pulmonology Progress Note ---
Assessment/Plan Problems: (1) Multifocal pneumonia (2) Respiratory failure (3) Pyelonephritis (4) UTI (urinary tract infection) (5) Acute renal failure (6) Sepsis (7) Diabetes mellitus out of control (8) Proteinuria (9) HCAP (healthcare-associated pneumonia) (10) Decubitus skin ulcer Assessment/Plan Acute hypoxemic and Chronic respiratory failure B pulmonary infiltrates, likely HCAP Elevated D-dimer with neg Duplex and IP VQ Hypotension - resolved GRADY - improved Hypernatremia - improved Dementia/CVA NHR Dyphagia HTN, CAD PLAN: Optimize pulmonary hygiene/mobilize as tolerated PRN O2 CT-A reviewed, sig scattered b infiltrates and bxtsis --> Infiltrates need to be followed to RADIOGRAPHIC RESOLUTION or worked up further, repeat CXR in 1-[address] in 4-6 weeks Abx per ID RTC and PRN HHN's Monitor volumes and renal function DVT Px: Hep SQ TF's DNAR/DNI, BiPAP Ok Continue to discuss GOC Subjective Allergies: Coded Allergies: CEFTRIAXONE (Verified Allergy, Unknown, 04/04/18) Subjective AFVSS, stable O2 needs, CT-A reviewed No cough, no SOB, no wheezing, no F/C Objective Last 24 Hour Vital Signs Date Time Temp Pulse Resp B/P (MAP) Pulse Ox O2 Delivery O2 Flow Rate FiO2 04/09/18 12:00 Nasal Cannula 2.0 04/09/18 12:00 2.0 04/09/18 12:00 98.1 92 22 109/57 (74) 100 98.1 04/09/18 08:00 98.5 96 22 103/56 (72) 98 98.5 04/09/18 08:00 Nasal Cannula 2.0 04/09/18 08:00 95 04/09/18 08:00 2.0 04/09/18 07:24 90 28 100 Nasal Cannula 2.0 28 04/09/18 07:19 99 Nasal Cannula 2.0 28 04/09/18 07:19 Nasal Cannula 2.0 28 04/09/18 07:16 94 33 99 Bi-pap 28 04/09/18 04:43 85 26 99 Facial 28 04/09/18 04:00 98.1 83 28 127/61 (83) 99 98.1 04/09/18 04:00 Nasal Cannula 2.0 04/09/18 04:00 85 04/09/18 04:00 28 04/09/18 03:26 89 28 99 Facial 28 04/09/18 01:30 93 31 98 Bi-pap 28 04/09/18 01:21 88 28 98 Bi-pap 28 04/09/18 01:20 88 28 99 Facial 28 04/09/18 00:00 Nasal Cannula 2.0 04/09/18 00:00 99.5 96 30 140/84 (102) 99 99.5 04/09/18 00:00 30 04/09/18 00:00 93 04/08/18 22:13 95 26 99 Facial 30 04/08/18 20:00 Nasal Cannula 2.0 04/08/18 20:00 2.0 04/08/18 20:00 98.8 100 26 116/67 (83) 99 98.8 04/08/18 20:00 98 04/08/18 19:49 92 20 100 Nasal Cannula 2.0 04/08/18 19:42 98 Nasal Cannula 2.0 04/08/18 19:42 Nasal Cannula 2.0 04/08/18 19:41 96 20 98 Nasal Cannula 2.0 28 04/08/18 16:00 2.0 04/08/18 16:00 86 04/08/18 16:00 98.8 85 22 109/64 (79) 98 98.8 04/08/18 16:00 Nasal Cannula 2.0 04/08/18 12:41 84 22 98 Nasal Cannula 2.0 04/08/18 12:32 85 22 98 Nasal Cannula 2.0 28 Intake and Output 04/08/18 04/09/18 19:00 07:00 Intake Total 725 ml 1159 ml Output Total 450 ml 500 ml Balance 275 ml 659 ml Free Water 130 ml 100 ml IV Total 360 ml Tube Feeding 595 ml 699 ml Output Urine Total 450 ml 500 ml # Bowel Movements 2 General Appearance: cachetic HEENT: normocephalic, atraumatic, anicteric, mucous membranes moist Respiratory/Chest: chest wall non-tender, rhonchi Cardiovascular: normal peripheral pulses, normal rate, regular rhythm Abdomen: normal bowel sounds, soft, non tender, no organomegaly Extremities: no cyanosis, no clubbing, no edema Laboratory Tests 04/09/18 05:36: White Blood Count 8.6, Red Blood Count 3.32L, Hemoglobin 8.5L, Hematocrit 28.0L , Mean Corpuscular Volume 84, Mean Corpuscular Hemoglobin 25.5L, Mean Corpuscular Hemoglobin Concent 30.3L, Red Cell Distribution Width 16.6H, Platelet Count 479H, Mean Platelet Volume 6.3L, Neutrophils (%) (Auto) 77.7H, Lymphocytes (%) (Auto) 14.3L, Monocytes (%) (Auto) 4.6, Eosinophils (%) (Auto) 2.9, Basophils (%) (Auto) 0.5, Sodium Level 143, Potassium Level 4.3, Chloride Level 107, Carbon Dioxide Level 34H, Anion Gap 2L, Blood Urea Nitrogen 17, Creatinine 0.6, Estimat Glomerular Filtration Rate > 60, Glucose Level 203H, Calcium Level 8.7 04/09/18 10:05: Vancomycin Level Trough 15.7H Current Medications Medications (Trade) Dose Ordered Sig/Briseida Route PRN Reason Start Time Stop Time Status Last Admin Dose Admin Acetaminophen (Tylenol) 650 mg Q4H PRN ORAL Mild Pain/Temp > 100.5 04/04/18 15:04 05/04/18 14:59 04/08/18 23:38 Albuterol/ Ipratropium (Albuterol/ Ipratropium) 3 ml Q4H PRN HHN Shortness of Breath 04/08/18 11:15 04/13/18 11:14 Albuterol/ Ipratropium (Albuterol/ Ipratropium) 3 ml Q6HRT HHN 04/05/18 01:00 04/10/18 00:59 04/09/18 07:16 Dextrose (Dextrose 50%) 25 ml STAT PRN IV Hypoglycemia 04/09/18 06:45 05/09/18 06:44 Dextrose (Dextrose 50%) 50 ml STAT PRN IV Hypoglycemia 04/09/18 06:45 05/09/18 06:44 Famotidine (Pepcid) 20 mg BID GT 04/04/18 18:00 05/04/18 17:59 04/09/18 08:35 Heparin Sodium (Porcine) (Heparin 5000 units/ml) 5,000 units EVERY 12 HOURS SUBQ 04/05/18 09:00 05/05/18 08:59 8/29/18 08:37 Insulin Aspart (NovoLOG) EVERY 6 HOURS SUBQ 04/09/18 00:00 05/09/18 00:00 04/09/18 11:36 Insulin Detemir (Levemir) 6 units BID SUBQ 04/09/18 09:00 05/09/18 08:59 04/09/18 08:35 Iopamidol (Isovue-370 150ml) 150 ml NOW PRN INJ Radiology Procedure 04/07/18 18:45 04/09/18 18:40 Trimethoprim/ Sulfamethoxazole (Bactrim-DS) 20 ml EVERY 12 HOURS NG 04/09/18 21:00 04/16/18 20:59 Yrn Buckley MD Apr 09, 2018 12:30
--- NOTE | 2018-04-09 14:56 | General Progress Note ---
Assessment/Plan Problem List: (1) Respiratory failure ICD Codes: J96.90 - Respiratory failure, unspecified, unspecified whether with hypoxia or hypercapnia SNOMED: 042992897 (2) Diabetes mellitus out of control ICD Codes: E11.65 - Type 2 diabetes mellitus with hyperglycemia SNOMED: 25428168, 003711722 (3) Multifocal pneumonia ICD Codes: J18.9 - Pneumonia, unspecified organism SNOMED: 601743438 (4) Acute renal failure ICD Codes: N17.9 - Acute kidney failure, unspecified SNOMED: 75331670 (5) UTI (urinary tract infection) ICD Codes: N39.0 - Urinary tract infection, site not specified SNOMED: 31347928 Status: stable, progressing Assessment/Plan o2 pulm tx abx ot pt diet dc to snf if clear Subjective Constitutional: Reports: weakness Allergies: Coded Allergies: CEFTRIAXONE (Verified Allergy, Unknown, 04/04/18) All Systems: reviewed and negative except above Subjective o2nc sleepy Objective Last 24 Hour Vital Signs Date Time Temp Pulse Resp B/P (MAP) Pulse Ox O2 Delivery O2 Flow Rate FiO2 04/09/18 14:45 94 22 100 Nasal Cannula 2.0 04/09/18 14:36 96 24 97 Nasal Cannula 2.0 28 04/09/18 12:00 98 04/09/18 12:00 Nasal Cannula 2.0 04/09/18 12:00 2.0 04/09/18 12:00 98.1 92 22 109/57 (74) 100 98.1 04/09/18 08:00 98.5 96 22 103/56 (72) 98 98.5 04/09/18 08:00 Nasal Cannula 2.0 04/09/18 08:00 95 04/09/18 08:00 2.0 04/09/18 07:24 90 28 100 Nasal Cannula 2.0 28 04/09/18 07:19 99 Nasal Cannula 2.0 28 04/09/18 07:19 Nasal Cannula 2.0 28 04/09/18 07:16 94 33 99 Bi-pap 28 04/09/18 04:43 85 26 99 Facial 28 04/09/18 04:00 98.1 83 28 127/61 (83) 99 98.1 04/09/18 04:00 Nasal Cannula 2.0 04/09/18 04:00 85 04/09/18 04:00 28 04/09/18 03:26 89 28 99 Facial 28 04/09/18 01:30 93 31 98 Bi-pap 04/09/18 01:21 88 28 98 Bi-pap 04/09/18 01:20 88 28 99 Facial 28 04/09/18 00:00 Nasal Cannula 2.0 04/09/18 00:00 99.5 96 30 140/84 (102) 99 99.5 04/09/18 00:00 30 04/09/18 00:00 93 04/08/18 22:13 95 26 99 Facial 30 04/08/18 20:00 Nasal Cannula 2.0 04/08/18 20:00 2.0 04/08/18 20:00 98.8 100 26 116/67 (83) 99 98.8 04/08/18 20:00 98 04/08/18 19:49 92 20 100 Nasal Cannula 2.0 04/08/18 19:42 98 Nasal Cannula 2.0 04/08/18 19:42 Nasal Cannula 2.0 04/08/18 19:41 96 20 98 Nasal Cannula 2.0 04/08/18 16:00 2.0 04/08/18 16:00 86 04/08/18 16:00 98.8 85 22 109/64 (79) 98 98.8 04/08/18 16:00 Nasal Cannula 2.0 Intake and Output 04/08/18 04/09/18 19:00 07:00 Intake Total 725 ml 1159 ml Output Total 450 ml 500 ml Balance 275 ml 659 ml Free Water 130 ml 100 ml IV Total 360 ml Tube Feeding 595 ml 699 ml Output Urine Total 450 ml 500 ml # Bowel Movements 2 Laboratory Tests 04/09/18 05:36: White Blood Count 8.6, Red Blood Count 3.32L, Hemoglobin 8.5L, Hematocrit 28.0L , Mean Corpuscular Volume 84, Mean Corpuscular Hemoglobin 25.5L, Mean Corpuscular Hemoglobin Concent 30.3L, Red Cell Distribution Width 16.6H, Platelet Count 479H, Mean Platelet Volume 6.3L, Neutrophils (%) (Auto) 77.7H, Lymphocytes (%) (Auto) 14.3L, Monocytes (%) (Auto) 4.6, Eosinophils (%) (Auto) 2.9, Basophils (%) (Auto) 0.5, Sodium Level 143, Potassium Level 4.3, Chloride Level 107, Carbon Dioxide Level 34H, Anion Gap 2L, Blood Urea Nitrogen 17, Creatinine 0.6, Estimat Glomerular Filtration Rate > 60, Glucose Level 203H, Calcium Level 8.7 04/09/18 10:05: Vancomycin Level Trough 15.7H Height (Feet): 5 Height (Inches): 5.00 Weight (Pounds): 127 General Appearance: lethargic EENT: normal ENT inspection Neck: normal alignment Cardiovascular: normal peripheral pulses, normal rate, regular rhythm Respiratory/Chest: chest wall non-tender, lungs clear, normal breath sounds Abdomen: normal bowel sounds, non tender, soft Extremities: normal inspection Edema: no edema noted Arm (L), no edema noted Arm (R), no edema noted Leg (L), no edema noted Leg (R), no edema noted Pedal (L), no edema noted Pedal (R), no edema noted Generalized Neurologic: motor weakness Skin: normal pigmentation, warm/dry Franky Bermudez DO Apr 09, 2018 14:56
[2018-04-09 16:00] VITALS: BP 110/59
--- NOTE | 2018-04-09 16:25 | Cardiology Report ---
APPROVED REPORT EKG Measurement Heart [id number] [id number] Sinus tachycardia Left atrial enlargement Borderline ECG
[2018-04-09] MEDS ORDERED: Bactrim Susp 20ml NG SCH (21:00)
--- NOTE | 2018-04-10 14:00 | Diagnostic Imaging Report ---
APPROVED REPORT CPT Code: 63199 Present Symptoms Lower Extremity Pain: Bilateral RIGHT LEG: Venous imaging reveals a patent deep venous system. There is no evidence of thrombus within the femoral, popliteal or tibial segments. The greater saphenous vein is also within normal limits. Doppler indicates normal spontaneous flow within these segments. LEFT LEG: Venous imaging reveals a patent deep venous system. There is no evidence of thrombus within the common and superficial femoral veins. The greater saphenous vein is also within normal limits. Doppler indicates normal spontaneous flow within these segments. Note: The left popliteal and tibial segments were not imaged, due to patient was unable to cooperate.
--- NOTE | 2018-04-10 14:19 | Discharge Summary ---
Discharge Summary Discharge Summary _ DATE OF ADMISSION: 04/04/2018 DATE OF DISCHARGE: 04/09/2018 CONSULTANTS: Dr. Yrn Álvarez [facility] HOSPITAL COURSE: Patient is a 68-year-old male, from [facility], presented with increased shortness of breath and hypoxia. He has medical history significant for diabetes mellitus, hypertension, coronary artery disease, renal failure, and respiratory failure. He is DO NOT RESUSCITATE. On evaluation at ED, patient was hypotensive, tachycardic and tachypneic. Blood work showed leukocytosis, WBC 18, hemoglobin 9.9 and hematocrit 33. He was given IV fluids. Urinalysis showed too many to count RBC, too many to count WBC, 2+ leukocyte esterase, 4+ blood, 3+ protein and negative nitrite. He was started on broad-spectrum antibiotics. ABG showed elevated CO2. He was placed on BiPAP. EKG showed sinus tachycardia with no acute changes. Chest x- ray showed bilateral diffuse interstitial and airspace disease. Patient was then admitted for evaluation of sepsis, pneumonia and UTI. He was seen by infectious disease specialist. He was placed on vancomycin, aztreonam and levofloxacin. He was seen by [employer]. He was taken off BiPAP support and was placed on qhs and prn. He had elevated d-dimer. Venous duplex of lower extremity was negative for acute DVT. VQ scan showed indeterminate probability for PE. CTA chest showed no gross large vessel pulmonary embolus demonstrated. He had hypernatremia. He was given IV fluids. He was seen by automatic vulcanizing lead operator. He was given potassium and magnesium supplements. He had elevated blood glucose. He was seen by cycle director. Hemoglobin A1c was 7.8. He was placed on insulin sliding scale. He was eventually started on Levemir 6 units twice a day. He had waxing and waning of consciousness. He was diagnosed to have encephalopathy due to general medical condition. He was seen by psychiatrist and was given Seroquel prn. He came in with multiple decubitus pressure ulcer. Upon admission, he was noted to have large sacral decubitus ulcer and open left hip decubitus ulcer. Sacral wound was clean. Left hip wound required nonexcisional debridement at bedside. He was given wound care. He was placed on air mattress with frequent offloading and turning. Sputum culture showed growth of ESBL Proteus. Wound culture with MRSA, ESBL Proteus and Escherichia coli. He was eventually taken off vancomycin, Levaquin and meropenem. To continue DS Bactrim via G-tube for 4 days. Recommend infiltrates need to be followed with radiographic resolution. Repeat chest x- ray in 1-[address] in 4-6 weeks. FINAL DIAGNOSES: Sepsis due to pneumonia and UTI Healthcare associated pneumonia UTI with Proteus ESBL Pyelonephritis Acute renal failure Acute on chronic respiratory failure requiring BiPAP, resolved Advanced dementia Diabetes mellitus out of control Hypertension Hypernatremia Hypokalemia Hypomagnesemia Dysphagia on PEG Coronary artery disease Old CVA Cachexia/malnutrition Anemia Encephalopathy due to general medical condition Multiple decubiti pressure ulcer, present on admission-decubitus ulcer of left hip stage IV, decubitus ulcer of right hip stage III, sacral decubitus ulcer stage IV DISPOSITION: Patient was discharged back to [facility]. I have been assigned to dictate discharge summary on this account, and I was not involved in the patient's management. Liana Gilliland NP Apr 10, 2018 14:19
== END 2018-04-09 18:30 | DRG 871 ==
LOC: EDBD 10:43 → EMR 11:05 → EDBEDREQ 11:59 → 2E 12:11 → EDBEDREQSVC 13:14 → EDBEDREQ 13:14 → EDBEDREQSVC 14:32 → 2W 14:57 → EDBEDREQ 15:38 → 2W 15:56
PROC: 5A09457 Assistance with Respiratory Ventilation, 24-96 Consecutive Hours, Continuous Positive Airway Pressure (ICD-10-PCS; principal; 2018-04-06)
DX: A41.9 Sepsis, unspecified organism (principal); L89.224 Pressure ulcer of left hip, stage 4; L89.213 Pressure ulcer of right hip, stage 3; L89.154 Pressure ulcer of sacral region, stage 4; J18.9 Pneumonia, unspecified organism; G93.40 Encephalopathy, unspecified; J96.21 Acute and chronic respiratory failure with hypoxia; N39.0 Urinary tract infection, site not specified; E87.0 Hyperosmolality and hypernatremia; N17.9 Acute kidney failure, unspecified; N12 Tubulo-interstitial nephritis, not specified as acute or chronic; Z43.1 Encounter for attention to gastrostomy; E46 Unspecified protein-calorie malnutrition; Z66 Do not resuscitate; B96.4 Proteus (mirabilis) (morganii) as the cause of diseases classified elsewhere; Z16.12 Extended spectrum beta lactamase (ESBL) resistance; F03.90 Unspecified dementia, unspecified severity, without behavioral disturbance, psychotic disturbance, mood disturbance, and anxiety; E11.65 Type 2 diabetes mellitus with hyperglycemia; Y95 Nosocomial condition; I10 Essential (primary) hypertension; E87.6 Hypokalemia; E83.42 Hypomagnesemia; R13.10 Dysphagia, unspecified; I25.10 Atherosclerotic heart disease of native coronary artery without angina pectoris; Z86.73 Personal history of transient ischemic attack (TIA), and cerebral infarction without residual deficits; D64.9 Anemia, unspecified; Z88.1 Allergy status to other antibiotic agents
CPT/HCPCS: 36415; 36600; 71045; 71275; 78579; 78580; 80048; 80053; 80061; 80202; 81003; 81050; 82330; 82533; 82550; 82553; 82607; 82728; 82746; 82803; 82962; 82977; 83036; 83540; 83550; 83605; 83735; 83880; 84100; 84165; 84443; 84484; 85007; 85025; 85379; 86140; 87040; 87070; 87081; 87086; 87181; 87205; 93005; 93306; 93970; 94640; 94660; 94664; 94760; 97803; 99285; A9503; J1815; J7620; S5561

== ENCOUNTER 2018-05-29 19:14 | Inpatient (IN) | payer MEDICARE, MEDICAID ==
[~2018-05-29] VITALS: Ht 172.7 cm; Wt 68.0 kg
[~2018-05-29 19:14] MED LIST: ACETAMINOPHEN325 M1 GT; ARGINAID POWDE1 EACH GT; AVODART0.5 MG GT; COLLAGENASE1 EACH MC; CRANBERRY EXTRAC1 G1 GT; IPRATROPIU0.2 MG/1 M HHN; LANTUS SOL100 UNIT/1 SUBQ; LIQUITEARS15 ML OP; MULTIVITAMINS1 EAC8 GT; NOVOLOG100 UNIT/3 SUBQ; SILVADENE20 GM TP; TAMSULOSIN HCL0.4 MG GT; TYLENOL EXTRA500 MG GT; VITAMIN C500 M1 GT; [UNRECOGNIZED DRUG - OTHER] GT
[2018-05-29] MEDS ORDERED: JANUVIA25 MG GT (19:29)
[2018-05-29] MEDS ORDERED: BACTRIM 400-801 EACH GT (19:29)
[2018-05-29] MEDS ORDERED: ASPIR 8181 MG ORAL (19:29)
[2018-05-29] MEDS ORDERED: LISINOPRIL2.5 MG GT (19:29)
[2018-05-29] MEDS ORDERED: AMLODIPINE BESY10 MG GT (19:29)
[2018-05-29] MEDS ORDERED: LORATADINE10 M1 GT (19:29)
[2018-05-29] MEDS ORDERED: METFORMIN HCL850 M1 GT (19:29)
[2018-05-29] MEDS ORDERED: DOXYCYCLINE HYC50 M2 GT (19:29)
[2018-05-29 19:30] VITALS: BP 112/62
[2018-05-29] MEDS ORDERED: Acetaminophen 650mg/20.3ml GT ONE (19:45)
[2018-05-29] MEDS ORDERED: Ertapenem 1 GM in NS 55 ML IVPB ONE (19:45)
[2018-05-29 19:49] LABS: HEMATOCRIT 33.9 % (42.0-52.0); HEMOGLOBIN 10.2 G/DL (14.2-18.0); MEAN CORPUSCULAR VOLUME 86 FL (80-99); PLATELET COUNT 367 K/UL (150-450); RED BLOOD COUNT 3.95 M/UL (4.70-6.10); RED CELL DISTRIBUTION WIDTH 15.9 % (11.6-14.8)
[2018-05-29 19:50] LABS: BASOPHILS % (AUTO) 0.7 % (0.0-2.0); LYMPHOCYTES % (AUTO) 9.8 % (20.0-45.0); NEUTROPHILS % (AUTO) 85.4 % (45.0-75.0)
[2018-05-29 19:51] LABS: APPEARANCE,URINE CLEAR; BILIRUBIN, URINE NEGATIVE (NEGATIVE); COLOR,URINE YELLOW; GLUCOSE, URINE (UA) NEGATIVE (NEGATIVE); KETONES,URINE NEGATIVE (NEGATIVE); LEUKOCYTE ESTERASE ,URINE 1+ (NEGATIVE); NITRITE,URINE NEGATIVE (NEGATIVE); PH,URINE 6 (4.5-8.0); PROTEIN,URINE 2+ (NEGATIVE); UROBILINOGEN,URINE NORMAL MG/DL (0.0-1.0)
[2018-05-29] MEDS: Ipratropium 0.02% Inh Soln 2.5ml UD HHN SCH ×3 (19:59→20:13)
--- NOTE | 2018-05-29 20:00 | Emergency Room Report ---
History of Present Illness General Chief Complaint: Abnormal Labs Source: Family Member, Medical Record Present Illness HPI 68-year-old male presents to ED for evaluation. Patient coming from [facility] facility with increased sputum production. Daughter at bedside states that patient has history of frequent pneumonia. Patient is nonverbal at baseline. Patient has a fever. Productive cough for several days. No signs of distress. No other aggravating relieving factors. No other associated symptoms Allergies: Coded Allergies: CEFTRIAXONE (Verified Allergy, Unknown, 04/04/18) Patient History Past Medical History: DM, HTN, CVA/TIA, dementia Past Surgical History: other - Gtube Pertinent Family History: none Social History: Denies: smoking, alcohol use, drug use Immunizations: UTD Reviewed Nursing Documentation: PMH: Agreed; PSxH: Agreed Nursing Documentation-PMH Hx Cardiac Problems: No Hx Hypertension: Yes Hx Asthma: Yes Hx COPD: No Hx Diabetes: Yes Hx Cancer: No Hx Gastrointestinal Problems: Yes Hx Dialysis: No Hx Neurological Problems: Yes Hx Cerebrovascular Accident: Yes Hx Dementia: Yes Hx Seizures: No Review of Systems All Other Systems: limited Physical Exam Vital Signs Date Time Temp Pulse Resp B/P (MAP) Pulse Ox O2 Delivery O2 Flow Rate FiO2 05/29/18 19:13 100.7 110 18 92/50 97 Nasal Cannula 2.0 100.8 Sp02 EP Interpretation: reviewed, normal General Appearance: no apparent distress, GCS 15, non-toxic, other - nonverbal Head: normocephalic Eyes: bilateral eye normal inspection, bilateral eye PERRL ENT: normal ENT inspection Neck: normal inspection Respiratory: crackles, wheezing Cardiovascular #1: tachycardia Gastrointestinal: normal inspection Rectal: deferred Genitourinary: no CVA tenderness Musculoskeletal: normal inspection Neurologic: other - nonverbal Psychiatric: other - nonverbal Skin: normal inspection Lymphatic: normal inspection Medical Decision Making Diagnostic Impression: Primary Impression: HCAP (healthcare-associated pneumonia) ER Course Hospital Course 68 yo M presents to ED for productive sputum. + cultures. h/o frequent pneumonia Differential diagnoses include: Pneumonia, CHF exacerbation, pneumothorax, fluid overload Clinical course Patient placed on stretcher. On monitoring tech. After initial history and physical, I ordered nebulizer treatments. I ordered labs, IV fluids, EKG, chest x-ray, blood cultures, UA. Labs -leukocytosis noted, hemoglobin/hematocrit stable, electrolytes okay, lactate okay troponins negative CXR - bilateral infiltrates noted EKG - sinus tachycardia, no acute ischemic changes interpreted by me on review of sputum culture from SNF, multi drug resistant, sensitive to ertapenem. given ertapenem in ED Case discussed with Dr. Wu and he agreed to the patient to his service for further care and support I feel this is a highly complex case requiring extensive working including EKG/ Rhythm strip, Xray/CT/US, Blood/urine lab work, repeat exams while in ED, and administration of strong opiates/narcotics for pain control, admission to hospital or close patient follow up. Diagnosis - pneumonia Patient admitted to telemetry in serious condition Labs Test 05/29/18 19:25 White Blood Count 13.0 K/UL (4.8-10.8) Red Blood Count 3.95 M/UL (4.70-6.10) Hemoglobin 10.2 G/DL (14.2-18.0) Hematocrit 33.9 % (42.0-52.0) Mean Corpuscular Volume 86 FL (80-99) Mean Corpuscular Hemoglobin 25.9 PG (27.0-31.0) Mean Corpuscular Hemoglobin Concent 30.2 G/DL (32.0-36.0) Red Cell Distribution Width 15.9 % (11.6-14.8) Platelet Count 367 K/UL (150-450) Mean Platelet Volume 7.2 FL (6.5-10.1) Neutrophils (%) (Auto) 85.4 % (45.0-75.0) Lymphocytes (%) (Auto) 9.8 % (20.0-45.0) Monocytes (%) (Auto) 4.0 % (1.0-10.0) Eosinophils (%) (Auto) 0.0 % (0.0-3.0) Basophils (%) (Auto) 0.7 % (0.0-2.0) Urine Color Yellow Urine Appearance Clear Urine pH 6 (4.5-8.0) Urine Specific [place] 1.005 (1.005-1.035) Urine Protein 2+ (NEGATIVE) Urine Glucose (UA) Negative (NEGATIVE) Urine Ketones Negative (NEGATIVE) Urine Blood 1+ (NEGATIVE) Urine Nitrite Negative (NEGATIVE) Urine Bilirubin Negative (NEGATIVE) Urine Urobilinogen Normal MG/DL (0.0-1.0) Urine Leukocyte Esterase 1+ (NEGATIVE) Urine RBC 0-2 /HPF (0 - 0) Urine WBC 0-2 /HPF (0 - 0) Urine Squamous Epithelial Cells None /LPF (NONE/OCC) Urine Bacteria Few /HPF (NONE) Urine Yeast Moderate /HPF (NONE) Sodium Level 143 MMOL/L (136-145) Potassium Level 4.5 MMOL/L (3.5-5.1) Chloride Level 106 MMOL/L (98-107) Carbon Dioxide Level 31 MMOL/L (21-32) Anion Gap 6 mmol/L (5-15) Blood Urea Nitrogen 54 mg/dL (7-18) Creatinine 0.8 MG/DL (0.55-1.30) Estimat Glomerular Filtration Rate > 60 mL/min (>60) Glucose Level 170 MG/DL (74-106) Lactic Acid Level 1.60 mmol/L (0.4-2.0) Calcium Level 9.4 MG/DL (8.5-10.1) Total Bilirubin 0.2 MG/DL (0.2-1.0) Aspartate Amino Transf (AST/SGOT) 23 U/L (15-37) Alanine Aminotransferase (ALT/SGPT) 28 U/L (12-78) Alkaline Phosphatase 173 U/L (46-116) Total Creatine Kinase 25 U/L (26-308) Creatine Kinase MB 0.5 NG/ML (0.0-3.6) Creatine Kinase MB Relative Index 2.0 Troponin I 0.000 ng/mL (0.000-0.056) Pro-B-Type Natriuretic Peptide 277 pg/mL (0-125) Total Protein 9.6 G/DL (6.4-8.2) Albumin 2.4 G/DL (3.4-5.0) Globulin 7.2 g/dL Albumin/Globulin Ratio 0.3 (1.0-2.7) EKG Diagnostic Results Rate: tachycardiac Rhythm: NSR ST Segments: no acute changes ASA given to the pt in ED: No Rhythm Strip Diag. Results EP Interpretation: yes Rhythm: NSR, no PVC's, no ectopy Chest X-Ray Diagnostic Results Chest X-Ray Diagnostic Results : Chest X-Ray Ordered: Yes # of Views/Limited/Complete: 1 View Indication: Shortness of Breath EP Interpretation: Yes Interpretation: no effusion, no pneumothorax, other - bilateral consolidation Impression: Other - PNA Electronically Signed by: Electronically signed by Nacho Reed MD Last Vital Signs Date Time Temp Pulse Resp B/P (MAP) Pulse Ox O2 Delivery O2 Flow Rate FiO2 05/29/18 19:13 100.7 110 18 92/50 97 Nasal Cannula 2.0 100.8 Status: improved Disposition: HOME, SELF-CARE Condition: Serious Referrals: Jamia Wu MD (PCP) Nacho Reed MD May 29, 2018 20:00
[2018-05-29 20:32] LABS: ANION GAP 6 mmol/L (5-15); BLOOD UREA NITROGEN 54 mg/dL (7-18); CALCIUM 9.4 MG/DL (8.5-10.1); CARBON DIOXIDE 31 MMOL/L (21-32); CHLORIDE 106 MMOL/L (98-107); CREATININE 0.8 MG/DL (0.55-1.30); POTASSIUM 4.5 MMOL/L (3.5-5.1); SODIUM 143 MMOL/L (136-145)
[2018-05-29 20:47] LABS: ALANINE AMINOTRANSFERASE 28 U/L (12-78); ALBUMIN 2.4 G/DL (3.4-5.0); ALBUMIN/GLOBULIN RATIO 0.3 (1.0-2.7); ALKALINE PHOSPHATASE 173 U/L (46-116); ASPARTATE AMINO TRANSFERASE 23 U/L (15-37); BILIRUBIN,TOTAL 0.2 MG/DL (0.2-1.0); CKMB 0.5 NG/ML (0.0-3.6); CREATINE KINASE 25 U/L (26-308)
[2018-05-29 21:17] VITALS: BP 101/54
[2018-05-29 22:30] VITALS: BP 111/67
[2018-05-29] MEDS ORDERED: Albuterol/Ipratropium 3ml neb HHN PRN (23:45)
[2018-05-29] MEDS ORDERED: Acetaminophen 650mg/20.3ml GT PRN (23:45)
[2018-05-29] MEDS ORDERED: Milk of Magnesia 30ml Ud GT PRN (23:45)
[2018-05-30] VITALS: BP 104/62
[2018-05-30 04:00] VITALS: BP 111/63
[2018-05-30] MEDS: Meropenem 1 GM in NS 55 ML IVPB SCH ×3 (05:42→21:12)
[2018-05-30] MEDS: NovoLOG Insulin Flexpen SUBQ SCH ×4 (06:30→20:23)
[2018-05-30] MEDS: Aspirin Baby 81mg GT SCH (08:50)
[2018-05-30] MEDS: Levemir Flexpen SUBQ SCH ×2 (08:55→17:20)
[2018-05-30] MEDS ORDERED: Levemir Flexpen SUBQ SCH (09:00)
[2018-05-30] MEDS ORDERED: Lisinopril 2.5mg tab GT SCH (09:00)
--- NOTE | 2018-05-30 09:04 | Consultation ---
Consult Note Assessment/Plan DICT # [id number] Yrn Buckley MD May 30, 2018 09:04
--- NOTE | 2018-05-30 09:20 | Consultation ---
Consult Note Consult Note HEMATOLOGY CONSULT REQ MD: Jamia Wu Date patient seen: 05/30/2018 Chief Complaint: Dyspnea/Respdistress Reason for Consultation: Anemia eval HPI 68M multiple medical comorbidities currently [facility] for [facility] care and management. upon admission noted to have large sacral decubitus ulcer and open left hip decubitus ulcer. surgery called to assist with care and management of wounds. sacral wound clean. left hip wound requiring care. patient seen, chart reviewed, patient examined. patient himself not verbal. Noted to have anemia, hgb 10, and hematology service was consulted Allergies: CEFTRIAXONE (Verified Allergy, Unknown, 04/04/18) Medication History Scheduled Ascorbic Acid* (Vitamin C*), 500 MG GT DAILY, (Reported) Cranberry Extract (Cranberry Extract), 1 CAP GT BID, (Reported) Donepezil HCl (Aricept), 10 MG GT BEDTIME, (Reported) Dutasteride (Avodart), 0.5 MG GT DAILY, (Reported) Insulin Glargine (Lantus), 31 SUBQ BEDTIME, (Reported) Multivitamin With Minerals (Multivitamins With Minerals*), 1 TAB GT DAILY, ( Reported) Tamsulosin Hcl (Tamsulosin Hcl*), 0.4 MG GT BEDTIME, (Reported) Scheduled PRN Acetaminophen* (Acetaminophen 325MG Tablet*), 650 MG GT Q4H PRN for wound care, (Reported) Acetaminophen* (Tylenol Extra Strength*), 650 MG GT Q4HR PRN for Mild Pain/Temp > 100.5, (Reported) Acetaminophen* (Acetaminophen 325MG Tablet*), 650 MG GT Q4H PRN for Fever/ Headache/Mild Pain, (Reported) Arginine/Ascorbate Sod/Abigail AC (Arginaid Powder), 1 EACH GT BID PRN for wound healing, (Reported) Ipratropium [place] 0.5MG/2.5ML (Ipratropium [place] 0.5MG/2.5ML), 0.5 MG HHN Q4HR PRN for Shortness of Breath, (Reported) Polyvinyl Alcohol (Liquitears), 1 DRP OP EVERY 4 HOURS PRN for Dry Eyes, ( Reported) Miscellaneous Medications Collagenase Clostridium Hist. (Collagenase), 1 EACH MC, (Reported) Insulin Aspart* (Novolog*), 0 SUBQ, (Reported) Silver Sulfadiazine (Silvadene), 20 GM TP, (Reported) Patient History Limited by: medical condition History Provided By: Medical Record, PMD Healthcare decision maker Belinda Rivero (daughter) Resuscitation status Do Not Resuscitate Advanced Directive on File No Past Medical/Surgical History Past Medical/Surgical History: (1) Pyelonephritis (2) Respiratory failure (3) Sepsis (4) Diabetes mellitus out of control (5) Multifocal pneumonia (6) Acute renal failure (7) Proteinuria (8) UTI (urinary tract infection) (9) HCAP (healthcare-associated pneumonia) (10) Decubitus skin ulcer Review of Systems ROS Narrative cannot obtain given medical condition Physical Exam General Appearance: no apparent distress HEENT: mucous membranes moist Neck: normal inspection Respiratory/Chest: normal breath sounds, no respiratory distress, no accessory muscle use Cardiovascular/Chest: normal peripheral pulses, normal rate Abdomen: normal bowel sounds, non tender, soft, no organomegaly Extremities: normal inspection Skin Exam: other, decub ++ Neurologic: unresponsiveness Laboratory Tests Test 05/29/18 19:25 White Blood Count 13.0 K/UL (4.8-10.8) H Red Blood Count 3.95 M/UL (4.70-6.10) L Hemoglobin 10.2 G/DL (14.2-18.0) L Hematocrit 33.9 % (42.0-52.0) L Mean Corpuscular Volume 86 FL (80-99) Mean Corpuscular Hemoglobin 25.9 PG (27.0-31.0) L Mean Corpuscular Hemoglobin Concent 30.2 G/DL (32.0-36.0) L Red Cell Distribution Width 15.9 % (11.6-14.8) H Platelet Count 367 K/UL (150-450) Mean Platelet Volume 7.2 FL (6.5-10.1) Neutrophils (%) (Auto) 85.4 % (45.0-75.0) H Lymphocytes (%) (Auto) 9.8 % (20.0-45.0) L Monocytes (%) (Auto) 4.0 % (1.0-10.0) Eosinophils (%) (Auto) 0.0 % (0.0-3.0) Basophils (%) (Auto) 0.7 % (0.0-2.0) Urine Color Yellow Urine Appearance Clear Urine pH 6 (4.5-8.0) Urine Specific [place] 1.005 (1.005-1.035) Urine Protein 2+ (NEGATIVE) H Urine Glucose (UA) Negative (NEGATIVE) Urine Ketones Negative (NEGATIVE) Urine Blood 1+ (NEGATIVE) H Urine Nitrite Negative (NEGATIVE) Urine Bilirubin Negative (NEGATIVE) Urine Urobilinogen Normal MG/DL (0.0-1.0) Urine Leukocyte Esterase 1+ (NEGATIVE) H Urine RBC 0-2 /HPF (0 - 0) H Urine WBC 0-2 /HPF (0 - 0) Urine Squamous Epithelial Cells None /LPF (NONE/OCC) Urine Bacteria Few /HPF (NONE) Urine Yeast Moderate /HPF (NONE) H Sodium Level 143 MMOL/L (136-145) Potassium Level 4.5 MMOL/L (3.5-5.1) Chloride Level 106 MMOL/L (98-107) Carbon Dioxide Level 31 MMOL/L (21-32) Anion Gap 6 mmol/L (5-15) Blood Urea Nitrogen 54 mg/dL (7-18) H Creatinine 0.8 MG/DL (0.55-1.30) Estimat Glomerular Filtration Rate > 60 mL/min (>60) Glucose Level 170 MG/DL (74-106) H Lactic Acid Level 1.60 mmol/L (0.4-2.0) Calcium Level 9.4 MG/DL (8.5-10.1) Total Bilirubin 0.2 MG/DL (0.2-1.0) Aspartate Amino Transf (AST/SGOT) 23 U/L (15-37) Alanine Aminotransferase (ALT/SGPT) 28 U/L (12-78) Alkaline Phosphatase 173 U/L (46-116) H Total Creatine Kinase 25 U/L (26-308) L Creatine Kinase MB 0.5 NG/ML (0.0-3.6) Creatine Kinase MB Relative Index 2.0 Troponin I 0.000 ng/mL (0.000-0.056) Pro-B-Type Natriuretic Peptide 277 pg/mL (0-125) H Total Protein 9.6 G/DL (6.4-8.2) H Albumin 2.4 G/DL (3.4-5.0) L Globulin 7.2 g/dL Albumin/Globulin Ratio 0.3 (1.0-2.7) L Height (Inches): 5.00 Weight (Pounds): 120 Medications Current Medications Medications (Trade) Dose Ordered Sig/Briseida Route PRN Reason Start Time Stop Time Status Last Admin Dose Admin Acetaminophen (Tylenol) 650 mg Q4H PRN ORAL Mild Pain/Temp > 100.5 04/04/18 15:04 05/04/18 14:59 Albuterol/ Ipratropium (Albuterol/ Ipratropium) 3 ml Q4H PRN HHN Shortness of Breath 04/04/18 22:45 04/09/18 22:44 Albuterol/ Ipratropium (Albuterol/ Ipratropium) 3 ml Q6HRT HHN 04/05/18 01:00 04/10/18 00:59 04/07/18 08:27 Aztreonam 1 gm/ Dextrose 55 ml @ 110 mls/hr Q8HR IVPB 04/04/18 22:00 04/11/18 21:59 04/07/18 05:13 Dextrose (Dextrose 50%) 25 ml STAT PRN IV Hypoglycemia 04/05/18 07:45 05/05/18 07:44 Dextrose (Dextrose 50%) 50 ml STAT PRN IV Hypoglycemia 04/05/18 07:45 05/05/18 07:44 Famotidine (Pepcid) 20 mg BID GT 04/04/18 18:00 05/04/18 17:59 04/07/18 08:17 Heparin Sodium (Porcine) (Heparin 5000 units/ml) 5,000 units EVERY 12 HOURS SUBQ 04/05/18 09:00 05/05/18 08:59 04/07/18 08:20 Insulin Aspart (NovoLOG) BEFORE MEALS AND HS SUBQ 04/05/18 11:30 05/05/18 11:29 04/05/18 20:45 Levofloxacin (Levaquin) 500 mg Q24H GT 04/05/18 17:00 04/12/18 16:59 04/06/18 18:06 Potassium Chloride 100 ml @ 100 mls/hr Q1H IVPB 04/07/18 08:00 04/07/18 11:59 04/07/18 10:01 Vancomycin HCl (Vanco rx to dose) 1 ea DAILY PRN MISC Per rx protocol 04/04/18 19:30 05/04/18 19:29 Vancomycin/Sodium Chloride 250 ml @ 167 mls/hr Q12H IVPB 04/05/18 23:00 04/10/18 22:59 04/06/18 23:15 Assessment and Recs: # Anemia of chronic disease -- prior w/u reviewed, likely multifactorial --> hgb goal >7 --> anemia panel has been reviewed, ferritin and iron sat reordered --> no evidence of hemolysis # Leukocytosis potentially related to PNA --> on abx # Decubitus ulcer of left hip, stage 4 and right hip stage 3 --> seen in the past by Dr. Clark, in the past has undergone debridement in 03/2018 --> as per surgery management # PNA on abx as per pcp Appreciate consultation greatly! Nikolai Richards MD May 30, 2018 09:20
--- NOTE | 2018-05-30 09:28 | Diagnostic Imaging Report ---
Indication: Shortness of breath Technique: One view of the chest Comparison: 04/04/2018 Findings: Again demonstrated is diffuse bilateral mostly interstitial disease, appearing somewhat less severe than on the previous study. Pleural spaces are clear. No focal airspace consolidation. The heart size is normal. The aorta is tortuous ectatic and calcified Impression: Bilateral diffuse interstitial disease. This is less severe than on prior exam. Note that a prior CT chest suggests a significant amount of chronic interstitial fibrotic change, so it is unclear extent to which the findings represent acute process versus chronic interstitial fibrosis. Correlation with clinical findings an follow-up chest radiograph recommended.
[2018-05-30 11:56] LABS: % IRON SATURATION 13 % (15-50); IRON 18 ug/dL (50-175); TOTAL IRON BINDING CAPACITY 135 ug/dL (250-450)
[2018-05-30 12:11] LABS: FERRITIN 360 NG/ML (8-388)
--- NOTE | 2018-05-30 12:30 | Consultation ---
DATE OF CONSULTATION: 05/30/2018 PULMONARY CONSULTATION CONSULTING PHYSICIAN: Yrn Buckley M.D. REFERRING PHYSICIAN: Jamia Wu M.D. REASON FOR CONSULTATION: Pneumonia. HISTORY OF PRESENT ILLNESS: The patient is a 68-year-old male with a history of dementia, hypertension, prior CVA, TIA, G-tube dependent, who was actually admitted to [place] in March of this year for similar complaints. At that time, the patient had extensive parenchymal infiltrates with some lower lobe predominant bronchiectasis and there was a plan for repeat scanning in the future, which unfortunately was not done. Nonetheless, the patient presented to the ER overnight with cough, congestion, and sputum production per his daughter. He is nonverbal at baseline, but was less interactive than even baseline. He has fevers. He has had some productive cough as stated. No distress. No other problems. Upon arrival to the ER, his temperature was 100.8. His vitals were otherwise stable. He has been saturating well on 2 to 3 liters. Chest x-ray done in the emergency department, which is not available for my review, showed bilateral infiltrates. Laboratories were remarkable for a white count of 13 and UTI. The patient has been started on meropenem and admitted for further management. PAST MEDICAL HISTORY: 1. Dementia. 2. CVA. 3. Dysphagia, status post PEG. 4. Recurrent respiratory infections. 5. Chronic hypercapnia. 6. Diabetes. 7. CAD. 8. Hypertension. PAST SURGICAL HISTORY: Unknown. ALLERGIES: Rocephin. MEDICATIONS: Prior to admission, medications reviewed. SOCIAL HISTORY: He is a retirement resident. No known tobacco, alcohol, or drug use. FAMILY HISTORY: Unknown and unobtainable. PHYSICAL EXAMINATION: VITAL SIGNS: Temperature max is 100.8, saturating well on 3 liters. Vitals otherwise stable. GENERAL: He is a nonverbal male, in no acute distress HEENT: Normocephalic and atraumatic. Oropharynx is clear. NECK: Supple without lymphadenopathy. CHEST: Coarse bilateral rhonchi. HEART: Regular rhythm. ABDOMEN: Soft, nontender, nondistended. Feeding tube is noted. EXTREMITIES: No cyanosis, clubbing, or edema. LABORATORY AND DIAGNOSTIC DATA: Chest x-ray bilateral infiltrates. Laboratories reviewed. ASSESSMENT: The patient is a 68-year-old male retirement resident with acute on chronic hypoxemic hypercapnic respiratory failure, bilateral infiltrates, likely recurrent healthcare-associated pneumonia, dementia, CVA, dysphagia, hypertension, and CAD. PROBLEM LIST: 1. Multifocal pneumonia, healthcare-associated pneumonia. 2. [facility] resident. 3. Dementia/CVA. 4. Dysphagia. 5. Hypertension, CAD. 6. Protein albumin discordance. TREATMENT PLAN: 1. Optimize pulmonary hygiene/mobilize as tolerated. 2. Titrate down FiO2 to keep saturations greater than 90%. 3. P.r.n. BiPAP. 4. Continue antibiotics, follow up cultures. 5. Ahiqf-ocs-awvaz and p.r.n. bronchodilators. 6. Aspiration precautions, cautious tube feeds. 7. Monitor volumes and renal function. 8. Heparin subcutaneous for DVT prophylaxis. 9. DNR/DNI, continue discuss goals of care. 10. Given discordance between albumin and protein, I would consider evaluation for plasma cell disorder if that is within the goals of care. Dr. Wu, thank you for allowing me to assist in the care of your patient. If I may be of any assistance in the future, please do not hesitate to ask. Mignon Turcios JOB#: [id number] CC:
[2018-05-30] MEDS: Albuterol/Ipratropium 3ml neb HHN SCH ×2 (13:48→19:09)
--- NOTE | 2018-05-30 15:07 | Consultation ---
Consult Note Consult Note 68-year-old male presents to ED for evaluation. Patient coming from intermediate facility with increased sputum production. Daughter at bedside states that patient has history of frequent pneumonia. Patient is nonverbal at baseline. Patient has a fever. Productive cough for several days. No signs of distress. No other aggravating relieving factors. No other associated symptoms Allergies: CEFTRIAXONE (Verified Allergy, Unknown, 04/04/18) Past Medical History: DM, HTN, CVA/TIA, dementia Past Surgical History: other - Gtube Hx Hypertension: Yes Hx Asthma: Yes Hx Diabetes: Yes Hx Gastrointestinal Problems: Yes Hx Neurological Problems: Yes Hx Cerebrovascular Accident: Yes Hx Dementia: Yes examined data reviewed . Assessment/Plan Pneumonia- Hypoxia - Renal failure- Proteinuria- Hypoalbuminemia Anemia- UTI- Cachexia , Malnutrition- PEG- HypoTension on presentation DM Fluid challenge- respiratory support- Antibiotics Monitor renal parameters hold bp meds albumin bolus per orders Chava Dwyer MD May 30, 2018 15:07
[2018-05-30] MEDS ORDERED: HydrALAZINE 25mg tab ORAL PRN (15:15)
--- NOTE | 2018-05-30 15:25 | Consultation ---
History of Present Illness General Date patient seen: May 30, 2018 Chief Complaint: Abnormal Labs Reason for Consultation: decubitus ulcers Present Illness HPI 68 year old male known to me from prior admission currently admitted for medical care and management. prior was noted to have full thickness decubitus ulcers that were chronic. cross-villatoro incisions made and wound managed while in hospital. upon discharge seems to have had VAC placement onto wound and outpatient management at SNF. presented to ED with wound vac foam and dressings but no machine. concerns for wound so surgery called to evaluate and assist with care. patient seen, chart reviewed, patient examined. Allergies: Coded Allergies: CEFTRIAXONE (Verified Allergy, Unknown, 04/04/18) Medication History Scheduled Amlodipine Besylate* (Amlodipine Besylate*), 10 MG GT DAILY, (Reported) Ascorbic Acid* (Vitamin C*), 500 MG GT DAILY, (Reported) Aspirin* (Aspir 81*), 81 MG ORAL DAILY, (Reported) Cranberry Extract (Cranberry Extract), 1 CAP GT BID, (Reported) Donepezil HCl (Aricept), 10 MG GT BEDTIME, (Reported) Dutasteride (Avodart), 0.5 MG GT DAILY, (Reported) Insulin Glargine (Lantus), 31 SUBQ BEDTIME, (Reported) Lisinopril* (Lisinopril*), 5 MG GT DAILY, (Reported) Metformin Hcl* (Metformin Hcl*), 850 MG GT DAILY, (Reported) Multivitamin With Minerals (Multivitamins With Minerals*), 1 TAB GT DAILY, ( Reported) Sitagliptin* (Januvia*), 100 MG GT DAILY, (Reported) Sulfamethoxazole/Trimethoprim (Bactrim 400-80 Mg Tablet*), 1 TAB GT TWICE A DAY, (Reported) Tamsulosin Hcl (Tamsulosin Hcl*), 0.4 MG GT BEDTIME, (Reported) Scheduled PRN Acetaminophen* (Acetaminophen 325MG Tablet*), 650 MG GT Q4H PRN for wound care, (Reported) Acetaminophen* (Tylenol Extra Strength*), 650 MG GT Q4HR PRN for Mild Pain/Temp > 100.5, (Reported) Acetaminophen* (Acetaminophen 325MG Tablet*), 650 MG GT Q4H PRN for Fever/ Headache/Mild Pain, (Reported) Arginine/Ascorbate Sod/Abigail AC (Arginaid Powder), 1 EACH GT BID PRN for wound healing, (Reported) Ipratropium Banks 0.5MG/2.5ML (Ipratropium Banks 0.5MG/2.5ML), 0.5 MG HHN Q4HR PRN for Shortness of Breath, (Reported) Polyvinyl Alcohol (Liquitears), 1 DRP OP EVERY 4 HOURS PRN for Dry Eyes, ( Reported) Miscellaneous Medications Collagenase Clostridium Hist. (Collagenase), 1 EACH MC, (Reported) Doxycycline Hyclate (Doxycycline Hyclate), 100 MG GT, (Reported) Insulin Aspart* (Novolog*), 0 SUBQ, (Reported) Loratadine (Loratadine), 10 MG GT, (Reported) Silver Sulfadiazine (Silvadene), 20 GM TP, (Reported) Patient History Limited by: medical condition History Provided By: Medical Record, PMD Healthcare decision maker Belinda Rivero Resuscitation status Do Not Intubate Advanced Directive on File Yes Past Medical/Surgical History Past Medical/Surgical History: (1) Diabetes mellitus out of control (2) Acute renal failure (3) Proteinuria (4) UTI (urinary tract infection) (5) Decubitus skin ulcer (6) Sacral decubitus ulcer, stage IV (7) Decubitus ulcer of left hip, stage 4 (8) Decubitus ulcer of right hip, stage 3 (9) HCAP (healthcare-associated pneumonia) (10) PNA (pneumonia) Review of Systems All Other Systems: negative except mentioned in HPI ROS Narrative cannot asses given medical condition Physical Exam General Appearance: no apparent distress HEENT: mucous membranes moist Neck: normal inspection Respiratory/Chest: normal breath sounds Cardiovascular/Chest: normal rate Abdomen: soft, no organomegaly, no mass Extremities: other Skin Exam: other Neurologic: unresponsiveness Last 24 Hour Vital Signs Date Time Temp Pulse Resp B/P (MAP) Pulse Ox O2 Delivery O2 Flow Rate FiO2 05/30/18 13:27 102 20 99 Nasal Cannula 3.0 32 05/30/18 13:21 36 05/30/18 13:21 100 22 98 Nasal Cannula 3.0 32 05/30/18 12:00 97 05/30/18 09:00 Nasal Cannula 3.0 05/30/18 08:50 98 111/63 05/30/18 08:50 111/63 05/30/18 08:00 98 05/30/18 04:00 98.0 70 20 111/63 (79) 100 98.0 05/30/18 04:00 92 05/30/18 00:31 Nasal Cannula 3.0 05/30/18 00:00 97.5 96 20 104/62 (76) 100 97.5 05/30/18 00:00 92 05/29/18 22:40 94 05/29/18 22:40 94.7 97 24 101/54 98 Nasal Cannula 2.0 28 94.7 05/29/18 22:30 95.0 97 23 111/67 98 Nasal Cannula 2.0 95.0 05/29/18 21:17 94.7 99 24 101/54 98 Nasal Cannula 2.0 94.7 05/29/18 20:24 115 22 100 Nasal Cannula 2.0 28 05/29/18 20:13 111 24 100 Nasal Cannula 2.0 28 05/29/18 20:13 115 22 100 Nasal Cannula 2.0 28 05/29/18 20:09 114 22 99 Nasal Cannula 2.0 28 05/29/18 20:08 111 24 99 Nasal Cannula 2.0 28 05/29/18 20:08 100.0 05/29/18 20:08 100.7 05/29/18 20:03 114 24 Nasal Cannula 2.0 28 05/29/18 19:59 113 20 95 Nasal Cannula 2.0 28 05/29/18 19:30 100.7 110 25 112/62 98 Nasal Cannula 4.0 100.7 05/29/18 19:13 100.7 110 18 92/50 97 Nasal Cannula 2.0 100.8 Intake and Output 05/29/18 05/30/18 18:59 06:59 Intake Total 273 ml Output Total 450 ml Balance -177 ml Intake Free Water 60 ml IV Total 33 ml Tube Feeding 180 ml Output Urine Total 450 ml # Bowel Movements 1 Laboratory Tests Test 05/29/18 19:25 05/30/18 09:15 05/30/18 11:15 White Blood Count 13.0 K/UL (4.8-10.8) H Red Blood Count 3.95 M/UL (4.70-6.10) L Hemoglobin 10.2 G/DL (14.2-18.0) L Hematocrit 33.9 % (42.0-52.0) L Mean Corpuscular Volume 86 FL (80-99) Mean Corpuscular Hemoglobin 25.9 PG (27.0-31.0) L Mean Corpuscular Hemoglobin Concent 30.2 G/DL (32.0-36.0) L Red Cell Distribution Width 15.9 % (11.6-14.8) H Platelet Count 367 K/UL (150-450) Mean Platelet Volume 7.2 FL (6.5-10.1) Neutrophils (%) (Auto) 85.4 % (45.0-75.0) H Lymphocytes (%) (Auto) 9.8 % (20.0-45.0) L Monocytes (%) (Auto) 4.0 % (1.0-10.0) Eosinophils (%) (Auto) 0.0 % (0.0-3.0) Basophils (%) (Auto) 0.7 % (0.0-2.0) Urine Color Yellow Urine Appearance Clear Urine pH 6 (4.5-8.0) Urine Specific Aylett 1.005 (1.005-1.035) Urine Protein 2+ (NEGATIVE) H Urine Glucose (UA) Negative (NEGATIVE) Urine Ketones Negative (NEGATIVE) Urine Blood 1+ (NEGATIVE) H Urine Nitrite Negative (NEGATIVE) Urine Bilirubin Negative (NEGATIVE) Urine Urobilinogen Normal MG/DL (0.0-1.0) Urine Leukocyte Esterase 1+ (NEGATIVE) H Urine RBC 0-2 /HPF (0 - 0) H Urine WBC 0-2 /HPF (0 - 0) Urine Squamous Epithelial Cells None /LPF (NONE/OCC) Urine Bacteria Few /HPF (NONE) Urine Yeast Moderate /HPF (NONE) H Sodium Level 143 MMOL/L (136-145) Potassium Level 4.5 MMOL/L (3.5-5.1) Chloride Level 106 MMOL/L (98-107) Carbon Dioxide Level 31 MMOL/L (21-32) Anion Gap 6 mmol/L (5-15) Blood Urea Nitrogen 54 mg/dL (7-18) H Creatinine 0.8 MG/DL (0.55-1.30) Estimat Glomerular Filtration Rate > 60 mL/min (>60) Glucose Level 170 MG/DL (74-106) H Lactic Acid Level 1.60 mmol/L (0.4-2.0) Calcium Level 9.4 MG/DL (8.5-10.1) Total Bilirubin 0.2 MG/DL (0.2-1.0) Aspartate Amino Transf (AST/SGOT) 23 U/L (15-37) Alanine Aminotransferase (ALT/SGPT) 28 U/L (12-78) Alkaline Phosphatase 173 U/L (46-116) H Total Creatine Kinase 25 U/L (26-308) L Creatine Kinase MB 0.5 NG/ML (0.0-3.6) Creatine Kinase MB Relative Index 2.0 Troponin I 0.000 ng/mL (0.000-0.056) Pro-B-Type Natriuretic Peptide 277 pg/mL (0-125) H Total Protein 9.6 G/DL (6.4-8.2) H Albumin 2.4 G/DL (3.4-5.0) L Globulin 7.2 g/dL Albumin/Globulin Ratio 0.3 (1.0-2.7) L Arterial Blood pH 7.447 (7.350-7.450) Arterial Blood Partial Pressure CO2 43.4 mmHg (35.0-45.0) Arterial Blood Partial Pressure O2 86.5 mmHg (75.0-100.0) Arterial Blood HCO3 29.3 mmol/L (22.0-26.0) H Arterial Blood Oxygen Saturation 96.6 % (95-100) Arterial Blood Base Excess 4.7 (-2-2) H Daryl Test Positive Erythrocyte Sedimentation Rate 113 MM/HR (0-20) H Iron Level 18 ug/dL (50-175) L Total Iron Binding Capacity 135 ug/dL (250-450) L Percent Iron Saturation 13 % (15-50) L Unsaturated Iron Binding 117 ug/dL (112-346) Ferritin 360 NG/ML (8-388) Microbiology Date/Time Source Procedure Growth Status 05/29/18 23:00 Stool Clostridium difficile Toxin Assay - Final Complete 05/29/18 19:25 Urine,Clean Catch Urine Culture - Preliminary NO GROWTH Resulted Height (Feet): 5 Height (Inches): 8.00 Weight (Pounds): 150 Medications Current Medications Medications (Trade) Dose Ordered Sig/Briseida Route PRN Reason Start Time Stop Time Status Last Admin Dose Admin Acetaminophen (Tylenol) 650 mg EVERY 4 HOURS PRN GT Mild Pain/Temp > 100.5 05/29/18 23:45 06/28/18 23:44 Albumin Human 500 ml @ 0 mls/hr Q0M ONCE IV 05/30/18 16:00 05/30/18 16:01 Albuterol/ Ipratropium (Albuterol/ Ipratropium) 3 ml Q4H PRN HHN Shortness of Breath 05/29/18 23:45 06/03/18 23:44 Albuterol/ Ipratropium (Albuterol/ Ipratropium) 3 ml Q6HRT HHN 05/30/18 13:00 06/04/18 12:59 05/30/18 13:48 Aspirin (ASA) 81 mg DAILY GT 05/30/18 09:00 06/29/18 08:59 05/30/18 08:50 Dextrose (Dextrose 50%) 25 ml Q30M PRN IV Hypoglycemia 05/30/18 00:30 06/29/18 00:29 Dextrose (Dextrose 50%) 50 ml Q30M PRN IV Hypoglycemia 05/30/18 00:30 06/29/18 00:29 Heparin Sodium (Porcine) (Heparin 5000 units/ml) 5,000 units EVERY 12 HOURS SUBQ 05/30/18 21:00 06/29/18 20:59 Hydralazine HCl (Apresoline) 25 mg Q4H PRN ORAL bp over 160 syst 05/30/18 15:15 06/29/18 15:14 Insulin Aspart (NovoLOG) BEFORE MEALS AND HS SUBQ 05/30/18 06:30 06/29/18 06:29 05/30/18 13:03 Insulin Detemir (Levemir) 6 units TWICE A DAY SUBQ 05/30/18 09:00 06/29/18 08:59 05/30/18 08:55 Lansoprazole (Prevacid) 30 mg BID GT 05/30/18 18:00 06/29/18 17:59 Lisinopril (Zestril) 5 mg DAILY GT 05/31/18 09:00 06/29/18 08:59 Magnesium Hydroxide (Mom) 30 ml DAILYPRN PRN GT Constipation 05/29/18 23:45 06/28/18 23:44 Meropenem 1 gm/ Sodium Chloride 55 ml @ 110 mls/hr Q8HR IVPB 05/30/18 06:00 06/04/18 05:59 05/30/18 14:13 Metformin HCl (Glucophage) 850 mg DAILY GT 05/30/18 09:00 06/29/18 08:59 05/30/18 08:50 Sitagliptin Phosphate (Januvia) 100 mg ACBREAKFAST GT 05/30/18 06:30 06/29/18 06:29 05/30/18 05:35 Assessment/Plan Problem List: (1) Decubitus ulcer of left hip, stage 4 Assessment & Plan: Pt presents with Full thickness pressure injury to Sacrum(L) 10cm x (W)12cm x (D)0.2cm with undermining 10-1 by 1cm at 11o'clock, undermining 6-7 by 1.1 cm at 7o'clock. Wound bed granular -beefy red with 10% necrosis at base of wound. No odor noted .Small amt non-odorous brown/green tinged exudate. Periwound without erythema or induration. Full thickness pressure injury to L Hip (L)4.8cm x (W)9.5cm x (D)1.5cm with undermining 10-5 by 2cm at at 12o'clock. Wound bed beefy red with scant malodorous brown tinged exudate.Periwound without erythema or induration. Resolving full thickness pressure injury to R hip (L)2cm x (W) 1.8cm. Wound bed viable .Edges flat and adherent to base of wound.Periwound with dark pigmentation with scarring. Bilat ischial areas and scrotum red. Both lower ext malleoli and heel with flaking skin .Heels and malleoli are blanchable. Tx.Plan:Apply Dakin's 1/4 strength packing .Loosely packed into wound .Apply Cavilon to Borders and cover with Biatain Drsg Daily and prn. Clean Sacral wound with Saline .Apply Hydrogel Impregnated Gauze intop wound (Attn to undermined areas.Cavilon Wipe to borders and cover with Biatain drsg.Daily and prn. Please Upgrade mattress to P200 Air Fluidized mattress. Reposition at minimum every 2hours or as tolerated. Apply Triad Paste to both Ischial regions and scrotum with each perineal care Cavilon wipes to both heels and malleoli and off-load with pillow. ICD Codes: L89.224 - Pressure ulcer of left hip, stage 4 SNOMED: 121999862, 646530924 (2) Decubitus ulcer of right hip, stage 3 ICD Codes: L89.213 - Pressure ulcer of right hip, stage 3 SNOMED: 798802361, [id number] (3) Sacral decubitus ulcer, stage IV ICD Codes: L89.154 - Pressure ulcer of sacral region, stage 4 SNOMED: 671183221, [id number] Shamar Clark May 30, 2018 15:25
[2018-05-30 15:45] VITALS: BP 101/59
[2018-05-30] MEDS: Ascorbic Acid 500mg tab GT SCH (17:19)
[2018-05-30 20:00] VITALS: BP 118/62
[2018-05-30] MEDS: Heparin 5000 units/ml inj SUBQ SCH (20:23)
[2018-05-30] MEDS ORDERED: Donepezil 10mg tab ORAL SCH (21:00)
--- NOTE | 2018-05-30 21:15 | Consultation ---
DATE OF CONSULTATION: 05/30/2018 INFECTIOUS DISEASE CONSULTATION CONSULTING PHYSICIAN: Herson Palmer M.D. PRIMARY ATTENDING PHYSICIAN: Jamia Wu M.D. REASON FOR CONSULTATION: Sepsis, pneumonia. HISTORY OF PRESENT ILLNESS: This is a 68-year-old white male who is a residential resident admitted last night because of productive cough. He had fever at the time of admission with maximum temperature of 100.8. He was tachycardic with heart rate of 110. The patient is not a source of history. PAST MEDICAL HISTORY: Significant for advanced dementia, diabetes mellitus, hypertension, BPH, bronchiectasis, dysphagia, status post G-tube placement, multiple pressure ulcer, on wound VAC. ALLERGIES: Allergic to ceftriaxone. MEDICATIONS: Getting Aricept, heparin, albuterol, insulin detemir, metformin, Norvasc, aspirin, Januvia, insulin, meropenem, albuterol, ipratropium, milk of magnesia, Tylenol. SOCIAL HISTORY: Single, residential resident. No other history obtainable by the patient. PHYSICAL EXAMINATION: VITAL SIGNS: Temperature 98, pulse 97, blood pressure 111/63, respirations 15. HEAD AND NECK: Getting oxygen by nasal cannula. HEART: He has normal heart rate LUNGS: Bilateral rhonchi. ABDOMEN: Soft. G-tube in place. EXTREMITIES: No edema. He has finger clubbing. NEUROLOGIC: Awake, aphasic. LABORATORY DATA: WBC 13, hemoglobin 10.2, hematocrit 33.9, and platelet is 367,000. Sodium 143, potassium 4.5, chloride 106, bicarbonate 31, BUN 54, creatinine 0.8, glucose 117, albumin is 2.4. AST and ALT are within normal limit. Alkaline phosphatase is 173. Chest x-ray shows bilateral diffuse interstitial infiltrate, less severe than previous exam. CT of chest was negative. Urine culture, negative. IMPRESSION: Sepsis with fever, leukocytosis, tachycardia. The patient seems to have pneumonia with increased symptoms. He also has history of bronchiectasis, has diabetes mellitus, hypertension, anemia, status post G-tube. Sputum culture in nursing facility showed Proteus mirabilis that is sensitive to carbapenems and Bactrim. RECOMMENDATION: We will continue meropenem. We will follow up the cultures. At the end of my exam, I thank Dr. Wu for involving me in the care of this patient. Herson Palmer M.D. DR: Damon JOB#: [id number] CC: [email or web address]
--- NOTE | 2018-05-30 21:51 | Consultation ---
History of Present Illness General Date patient seen: May 30, 2018 Chief Complaint: Abnormal Labs Reason for Consultation: decubitus ulcers Present Illness HPI 68-year-old male presents to ED from assisted facility with increased sputum production the pt was yelling and has cognitive impairment and is unable to provide hx. the pt is in severe pain and in addition is confused and has episodes of agitation Allergies: Coded Allergies: CEFTRIAXONE (Verified Allergy, Unknown, 04/04/18) Medication History Scheduled Amlodipine Besylate* (Amlodipine Besylate*), 10 MG GT DAILY, (Reported) Ascorbic Acid* (Vitamin C*), 500 MG GT DAILY, (Reported) Aspirin* (Aspir 81*), 81 MG ORAL DAILY, (Reported) Cranberry Extract (Cranberry Extract), 1 CAP GT BID, (Reported) Donepezil HCl (Aricept), 10 MG GT BEDTIME, (Reported) Dutasteride (Avodart), 0.5 MG GT DAILY, (Reported) Insulin Glargine (Lantus), 31 SUBQ BEDTIME, (Reported) Lisinopril* (Lisinopril*), 5 MG GT DAILY, (Reported) Metformin Hcl* (Metformin Hcl*), 850 MG GT DAILY, (Reported) Multivitamin With Minerals (Multivitamins With Minerals*), 1 TAB GT DAILY, ( Reported) Sitagliptin* (Januvia*), 100 MG GT DAILY, (Reported) Sulfamethoxazole/Trimethoprim (Bactrim 400-80 Mg Tablet*), 1 TAB GT TWICE A DAY, (Reported) Tamsulosin Hcl (Tamsulosin Hcl*), 0.4 MG GT BEDTIME, (Reported) Scheduled PRN Acetaminophen* (Acetaminophen 325MG Tablet*), 650 MG GT Q4H PRN for wound care, (Reported) Acetaminophen* (Tylenol Extra Strength*), 650 MG GT Q4HR PRN for Mild Pain/Temp > 100.5, (Reported) Acetaminophen* (Acetaminophen 325MG Tablet*), 650 MG GT Q4H PRN for Fever/ Headache/Mild Pain, (Reported) Arginine/Ascorbate Sod/Abigail AC (Arginaid Powder), 1 EACH GT BID PRN for wound healing, (Reported) Ipratropium [place] 0.5MG/2.5ML (Ipratropium [place] 0.5MG/2.5ML), 0.5 MG HHN Q4HR PRN for Shortness of Breath, (Reported) Polyvinyl Alcohol (Liquitears), 1 DRP OP EVERY 4 HOURS PRN for Dry Eyes, ( Reported) Miscellaneous Medications Collagenase Clostridium Hist. (Collagenase), 1 EACH MC, (Reported) Doxycycline Hyclate (Doxycycline Hyclate), 100 MG GT, (Reported) Insulin Aspart* (Novolog*), 0 SUBQ, (Reported) Loratadine (Loratadine), 10 MG GT, (Reported) Silver Sulfadiazine (Silvadene), 20 GM TP, (Reported) Patient History Limited by: medical condition History Provided By: Medical Record, PMD Healthcare decision maker Belinda Rivero Resuscitation status Do Not Intubate Advanced Directive on File Yes Past Medical/Surgical History Past Medical/Surgical History: (1) HCAP (healthcare-associated pneumonia) (2) Acute renal failure (3) Decubitus skin ulcer (4) Proteinuria (5) UTI (urinary tract infection) (6) Diabetes mellitus out of control (7) PNA (pneumonia) (8) Sacral decubitus ulcer, stage IV (9) Decubitus ulcer of left hip, stage 4 (10) Decubitus ulcer of right hip, stage 3 Review of Systems Psychiatric: Reports: prior hx, anxiety, emotional problems Physical Exam General Appearance: alert, confused, moderate distress, agitated Last 24 Hour Vital Signs Date Time Temp Pulse Resp B/P (MAP) Pulse Ox O2 Delivery O2 Flow Rate FiO2 05/30/18 21:00 Nasal Cannula 3.0 05/30/18 20:00 96.7 86 20 118/62 (80) 99 96.7 05/30/18 19:18 84 20 99 Nasal Cannula 3.0 32 05/30/18 19:08 Nasal Cannula 2.0 28 05/30/18 19:08 87 20 98 Nasal Cannula 2.0 28 05/30/18 19:08 98 Nasal Cannula 2.0 28 05/30/18 15:45 99.1 105 20 101/59 (73) 100 99.1 05/30/18 15:37 101 05/30/18 13:27 102 20 99 Nasal Cannula 3.0 32 05/30/18 13:21 36 05/30/18 13:21 100 22 98 Nasal Cannula 3.0 32 05/30/18 12:00 97 05/30/18 09:00 Nasal Cannula 3.0 05/30/18 08:50 98 111/63 05/30/18 08:50 111/63 05/30/18 08:00 98 05/30/18 04:00 98.0 70 20 111/63 (79) 100 98.0 05/30/18 04:00 92 05/30/18 00:31 Nasal Cannula 3.0 05/30/18 00:00 97.5 96 20 104/62 (76) 100 97.5 05/30/18 00:00 92 05/29/18 22:40 94 05/29/18 22:40 94.7 97 24 101/54 98 Nasal Cannula 2.0 28 94.7 05/29/18 22:30 95.0 97 23 111/67 98 Nasal Cannula 2.0 95.0 Intake and Output 05/29/18 05/30/18 19:00 07:00 Intake Total 273 ml Output Total 450 ml Balance -177 ml Intake Free Water 60 ml IV Total 33 ml Tube Feeding 180 ml Output Urine Total 450 ml # Bowel Movements 1 Laboratory Tests Test 05/30/18 09:15 05/30/18 11:15 Arterial Blood pH 7.447 (7.350-7.450) Arterial Blood Partial Pressure CO2 43.4 mmHg (35.0-45.0) Arterial Blood Partial Pressure O2 86.5 mmHg (75.0-100.0) Arterial Blood HCO3 29.3 mmol/L (22.0-26.0) H Arterial Blood Oxygen Saturation 96.6 % (95-100) Arterial Blood Base Excess 4.7 (-2-2) H Daryl Test Positive Erythrocyte Sedimentation Rate 113 MM/HR (0-20) H Iron Level 18 ug/dL (50-175) L Total Iron Binding Capacity 135 ug/dL (250-450) L Percent Iron Saturation 13 % (15-50) L Unsaturated Iron Binding 117 ug/dL (112-346) Ferritin 360 NG/ML (8-388) Microbiology Date/Time Source Procedure Growth Status 05/29/18 23:00 Stool Clostridium difficile Toxin Assay - Final Complete Height (Feet): 5 Height (Inches): 8.00 Weight (Pounds): 150 Medications Current Medications Medications (Trade) Dose Ordered Sig/Briseida Route PRN Reason Start Time Stop Time Status Last Admin Dose Admin Acetaminophen (Tylenol) 650 mg EVERY 4 HOURS PRN GT Mild Pain/Temp > 100.5 05/29/18 23:45 06/28/18 23:44 Albuterol/ Ipratropium (Albuterol/ Ipratropium) 3 ml Q4H PRN HHN Shortness of Breath 05/29/18 23:45 06/03/18 23:44 Albuterol/ Ipratropium (Albuterol/ Ipratropium) 3 ml Q6HRT HHN 05/30/18 13:00 06/04/18 12:59 05/30/18 19:09 Ascorbic Acid (Vitamin C) 500 mg TWICE A DAY GT 05/30/18 18:00 06/29/18 17:59 05/30/18 17:19 Aspirin (ASA) 81 mg DAILY GT 05/30/18 09:00 06/29/18 08:59 05/30/18 08:50 Dextrose (Dextrose 50%) 25 ml Q30M PRN IV Hypoglycemia 05/30/18 00:30 06/29/18 00:29 Dextrose (Dextrose 50%) 50 ml Q30M PRN IV Hypoglycemia 05/30/18 00:30 06/29/18 00:29 Heparin Sodium (Porcine) (Heparin 5000 units/ml) 5,000 units EVERY 12 HOURS SUBQ 05/30/18 21:00 06/29/18 20:59 05/30/18 20:23 Hydralazine HCl (Apresoline) 25 mg Q4H PRN ORAL bp over 160 syst 05/30/18 15:15 06/29/18 15:14 Insulin Aspart (NovoLOG) BEFORE MEALS AND HS SUBQ 05/30/18 06:30 06/29/18 06:29 05/30/18 20:23 Insulin Detemir (Levemir) 6 units TWICE A DAY SUBQ 05/30/18 09:00 06/29/18 08:59 05/30/18 17:20 Lansoprazole (Prevacid) 30 mg BID GT 05/30/18 18:00 06/29/18 17:59 05/30/18 17:19 Lisinopril (Zestril) 5 mg DAILY GT 05/31/18 09:00 06/29/18 08:59 Magnesium Hydroxide (Mom) 30 ml DAILYPRN PRN GT Constipation 05/29/18 23:45 06/28/18 23:44 Meropenem 1 gm/ Sodium Chloride 55 ml @ 110 mls/hr Q8HR IVPB 05/30/18 06:00 06/04/18 05:59 05/30/18 21:12 Metformin HCl (Glucophage) 850 mg DAILY GT 05/30/18 09:00 06/29/18 08:59 05/30/18 08:50 Sitagliptin Phosphate (Januvia) 100 mg ACBREAKFAST GT 05/30/18 06:30 06/29/18 06:29 05/30/18 05:35 Sodium Hypochlorite (Dakin's Quarter Strength) 1 applic DAILY TOPIC 05/31/18 09:00 06/30/18 08:59 Assessment/Plan Assessment/Plan 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
[2018-05-30] MEDS ORDERED: OLANZapine 2.5mg tab ORAL PRN (22:00)
[2018-05-31] VITALS: BP 120/67
[2018-05-31] MEDS: Albuterol/Ipratropium 3ml neb HHN SCH ×4 (00:55→19:54)
[2018-05-31] MEDS: Dakin's 0.125% Soln (Quarter Strength) 16oz TOPIC SCH (02:21)
[2018-05-31 04:00] VITALS: BP 103/63
--- NOTE | 2018-05-31 04:15 | History and Physical Report ---
DATE OF ADMISSION: 05/29/2018 HISTORY: The patient is nonverbal, could not talk, had fever at the [facility] of 101 and pneumonia. Positive sputum culture and azotemia. The patient has a sacral decubitus. I am unable to get history from the patient. PAST MEDICAL HISTORY: Dementia, nonverbal, decubitus ulcer, history of advanced dementia, NIDDM, constipation, hypertension, BPH, . ALLERGIES: Ceftriaxone. MEDICATIONS: Amlodipine, , benazepril, insulin, lisinopril, loratadine, multivitamin, metformin, Flomax. FAMILY HISTORY: Unable to obtain. SOCIAL HISTORY: Unable to obtain. REVIEW OF SYSTEMS: Unable to obtain. Nonverbal. PHYSICAL EXAMINATION: VITAL SIGNS: Temperature 99.1, pulse is 105, blood pressure 101/59. HEENT: PERRLA. NECK: Supple. No lymphadenopathy. CHEST: Clear to auscultation. GASTROINTESTINAL: Soft, nontender, and nontender. . SKIN: For skin integrity, please refer to the nursing notes. NEUROLOGIC: Reflexes equal on both sides. CURRENT LABORATORIES: WBC of 13, hemoglobin 10.2, and platelets of 367. Sodium 43, potassium 4.5, BUN of 54, creatinine 0.8. ASSESSMENT AND PLAN: 1. Fever. 2. Sepsis. 3. fci. 4. Pneumonia. 5. Azotemia. I have asked Dr. Dwyer and Dr. Herson Palmer as well as to see the patient with pneumonia and azotemia. Jamia Wu M.D. DR: KENNY JOB#: [id number] CC:
[2018-05-31] MEDS: Meropenem 1 GM in NS 55 ML IVPB SCH ×3 (05:32→21:01)
[2018-05-31] MEDS: NovoLOG Insulin Flexpen SUBQ SCH ×4 (06:30→20:57)
[2018-05-31 09:00] VITALS: BP 106/64
[2018-05-31] MEDS: Aspirin Baby 81mg GT SCH (09:02)
[2018-05-31] MEDS: Ascorbic Acid 500mg tab GT SCH ×2 (09:02→17:07)
[2018-05-31] MEDS: Lisinopril 2.5mg tab GT SCH (09:03)
[2018-05-31] MEDS: Heparin 5000 units/ml inj SUBQ SCH ×2 (09:09→20:57)
[2018-05-31] MEDS: Levemir Flexpen SUBQ SCH ×2 (09:17→17:12)
[2018-05-31 12:00] VITALS: BP 108/63
--- NOTE | 2018-05-31 12:49 | General Surgery Progress Note ---
General Surgery-Progress Note Subjective Additional Comments no acute events Objective Last 24 Hour Vital Signs Date Time Temp Pulse Resp B/P (MAP) Pulse Ox O2 Delivery O2 Flow Rate FiO2 05/31/18 12:13 98.0 05/31/18 12:00 98.0 93 20 108/63 (78) 99 98.0 05/31/18 11:43 97.1 05/31/18 09:03 106/64 05/31/18 09:00 97.1 85 16 106/64 (78) 92 97.1 05/31/18 09:00 Nasal Cannula 3.0 05/31/18 08:05 89 20 100 Nasal Cannula 2.0 28 05/31/18 08:00 87 05/31/18 07:55 88 18 98 Nasal Cannula 2.0 28 05/31/18 07:55 Nasal Cannula 2.0 28 05/31/18 07:54 98 Nasal Cannula 2.0 28 05/31/18 04:00 98.2 85 20 103/63 (76) 100 98.2 05/31/18 04:00 88 05/31/18 01:05 87 20 99 Nasal Cannula 3.0 32 05/31/18 00:55 89 20 99 Nasal Cannula 2.0 28 05/31/18 00:00 75 05/31/18 00:00 97.9 84 20 120/67 (84) 100 97.9 05/30/18 21:00 Nasal Cannula 3.0 05/30/18 20:00 89 05/30/18 20:00 96.7 86 20 118/62 (80) 99 96.7 05/30/18 19:18 84 20 99 Nasal Cannula 3.0 32 05/30/18 19:08 Nasal Cannula 2.0 28 05/30/18 19:08 87 20 98 Nasal Cannula 2.0 28 05/30/18 19:08 98 Nasal Cannula 2.0 28 05/30/18 15:45 99.1 105 20 101/59 (73) 100 99.1 05/30/18 15:37 101 05/30/18 13:27 102 20 99 Nasal Cannula 3.0 32 05/30/18 13:21 36 05/30/18 13:21 100 22 98 Nasal Cannula 3.0 32 I&O Intake and Output 05/30/18 05/31/18 19:00 07:00 Intake Total 380 ml 497 ml Output Total 900 ml 650 ml Balance -520 ml -153 ml Intake Free Water 90 ml 60 ml IV Total 110 ml 107 ml Tube Feeding 180 ml 330 ml Output Urine Total 900 ml 650 ml # Bowel Movements 4 3 Dressing: saturated Wound: other Drains: other Cardiovascular: RSR Respiratory: clear Abdomen: soft, flat, non-tender, present bowel sounds Plan Problems: (1) Decubitus ulcer of left hip, stage 4 Assessment & Plan: Pt presents with Full thickness pressure injury to Sacrum(L) 10cm x (W)12cm x (D)0.2cm with undermining 10-1 by 1cm at 11o'clock, undermining 6-7 by 1.1 cm at 7o'clock. Wound bed granular -beefy red with 10% necrosis at base of wound. No odor noted .Small amt non-odorous brown/green tinged exudate. Periwound without erythema or induration. Full thickness pressure injury to L Hip (L)4.8cm x (W)9.5cm x (D)1.5cm with undermining 10-5 by 2cm at at 12o'clock. Wound bed beefy red with scant malodorous brown tinged exudate.Periwound without erythema or induration. Resolving full thickness pressure injury to R hip (L)2cm x (W) 1.8cm. Wound bed viable .Edges flat and adherent to base of wound.Periwound with dark pigmentation with scarring. Bilat ischial areas and scrotum red. Both lower ext malleoli and heel with flaking skin .Heels and malleoli are blanchable. Tx.Plan:Apply Dakin's 1/4 strength packing .Loosely packed into wound .Apply Cavilon to Borders and cover with Biatain Drsg Daily and prn. Clean Sacral wound with Saline .Apply Hydrogel Impregnated Gauze intop wound (Attn to undermined areas.Cavilon Wipe to borders and cover with Biatain drsg.Daily and prn. Please Upgrade mattress to P200 Air Fluidized mattress. Reposition at minimum every 2hours or as tolerated. Apply Triad Paste to both Ischial regions and scrotum with each perineal care Cavilon wipes to both heels and malleoli and off-load with pillow. (2) Decubitus ulcer of right hip, stage 3 (3) Sacral decubitus ulcer, stage IV Shamar Clark May 31, 2018 12:49
[2018-05-31 14:32] LABS: BASOPHILS % (AUTO) 1.2 % (0.0-2.0); EOSINOPHILS % (AUTO) 3.5 % (0.0-3.0); HEMATOCRIT 30.6 % (42.0-52.0); HEMOGLOBIN 9.3 G/DL (14.2-18.0); LYMPHOCYTES % (AUTO) 19.4 % (20.0-45.0); MEAN CORPUSCULAR VOLUME 84 FL (80-99); MONOCYTES % (AUTO) 5.6 % (1.0-10.0); NEUTROPHILS % (AUTO) 70.2 % (45.0-75.0); PLATELET COUNT 325 K/UL (150-450); RED BLOOD COUNT 3.63 M/UL (4.70-6.10); RED CELL DISTRIBUTION WIDTH 16.3 % (11.6-14.8); WHITE BLOOD COUNT 7.9 K/UL (4.8-10.8)
[2018-05-31 14:58] LABS: ALANINE AMINOTRANSFERASE 27 U/L (12-78); ALBUMIN 2.5 G/DL (3.4-5.0); ALBUMIN/GLOBULIN RATIO 0.4 (1.0-2.7); ALKALINE PHOSPHATASE 111 U/L (46-116); ANION GAP 10 mmol/L (5-15); ASPARTATE AMINO TRANSFERASE 21 U/L (15-37); BILIRUBIN,TOTAL 0.2 MG/DL (0.2-1.0); BLOOD UREA NITROGEN 30 mg/dL (7-18); CALCIUM 8.9 MG/DL (8.5-10.1); CARBON DIOXIDE 27 MMOL/L (21-32); CHLORIDE 110 MMOL/L (98-107); CREATININE 0.6 MG/DL (0.55-1.30); POTASSIUM 4.2 MMOL/L (3.5-5.1); SODIUM 147 MMOL/L (136-145)
--- NOTE | 2018-05-31 16:34 | Nephrology Progress Note ---
Assessment/Plan Problem List: (1) UTI (urinary tract infection) (2) Proteinuria (3) Acute renal failure (4) Cachexia Assessment Pneumonia- Hypoxia - Renal failure- Proteinuria- Hypoalbuminemia Anemia- UTI- Cachexia , Malnutrition- PEG- HypoTension on presentation DM Plan Fluid challenge- respiratory support- Antibiotics Monitor renal parameters hold bp meds albumin bolus Dc Metformin per orders Subjective ROS Limited/Unobtainable: No Constitutional: Reports: malaise, weakness Objective Objective Last 24 Hour Vital Signs Date Time Temp Pulse Resp B/P (MAP) Pulse Ox O2 Delivery O2 Flow Rate FiO2 05/31/18 16:00 90 05/31/18 13:20 85 20 100 Nasal Cannula 2.0 28 05/31/18 13:10 87 18 98 Nasal Cannula 2.0 28 05/31/18 12:13 98.0 05/31/18 12:00 91 05/31/18 12:00 98.0 93 20 108/63 (78) 99 98.0 05/31/18 11:43 97.1 05/31/18 09:03 106/64 05/31/18 09:00 97.1 85 16 106/64 (78) 92 97.1 05/31/18 09:00 Nasal Cannula 3.0 05/31/18 08:05 89 20 100 Nasal Cannula 2.0 28 05/31/18 08:00 87 05/31/18 07:55 88 18 98 Nasal Cannula 2.0 28 05/31/18 07:55 Nasal Cannula 2.0 28 05/31/18 07:54 98 Nasal Cannula 2.0 28 05/31/18 04:00 98.2 85 20 103/63 (76) 100 98.2 05/31/18 04:00 88 05/31/18 01:05 87 20 99 Nasal Cannula 3.0 32 05/31/18 00:55 89 20 99 Nasal Cannula 2.0 28 05/31/18 00:00 75 05/31/18 00:00 97.9 84 20 120/67 (84) 100 97.9 05/30/18 21:00 Nasal Cannula 3.0 05/30/18 20:00 89 05/30/18 20:00 96.7 86 20 118/62 (80) 99 96.7 05/30/18 19:18 84 20 99 Nasal Cannula 3.0 32 05/30/18 19:08 Nasal Cannula 2.0 28 05/30/18 19:08 87 20 98 Nasal Cannula 2.0 28 05/30/18 19:08 98 Nasal Cannula 2.0 28 Intake and Output 05/30/18 05/31/18 18:59 06:59 Intake Total 320 ml 557 ml Output Total 900 ml 650 ml Balance -580 ml -93 ml Intake Free Water 60 ml 90 ml IV Total 110 ml 107 ml Tube Feeding 150 ml 360 ml Output Urine Total 900 ml 650 ml # Bowel Movements 4 3 Laboratory Tests 05/31/18 14:00: White Blood Count 7.9, Red Blood Count 3.63L, Hemoglobin 9.3L, Hematocrit 30.6L , Mean Corpuscular Volume 84, Mean Corpuscular Hemoglobin 25.6L, Mean Corpuscular Hemoglobin Concent 30.4L, Red Cell Distribution Width 16.3H, Platelet Count 325, Mean Platelet Volume 7.8, Neutrophils (%) (Auto) 70.2, Lymphocytes (%) (Auto) 19.4L, Monocytes (%) (Auto) 5.6, Eosinophils (%) (Auto) 3.5H, Basophils (%) (Auto) 1.2, Sodium Level 147H, Potassium Level 4.2, Chloride Level 110H, Carbon Dioxide Level 27, Anion Gap 10, Blood Urea Nitrogen 30H, Creatinine 0.6, Estimat Glomerular Filtration Rate > 60, Glucose Level 99, Calcium Level 8.9, Total Bilirubin 0.2, Aspartate Amino Transf (AST/SGOT) 21, Alanine Aminotransferase (ALT/SGPT) 27, Alkaline Phosphatase 111, Total Protein 8.7H, Albumin 2.5L, Globulin 6.2, Albumin/Globulin Ratio 0.4L Height (Feet): 5 Height (Inches): 8.00 Weight (Pounds): 150 General Appearance: lethargic Cardiovascular: tachycardia Respiratory/Chest: decreased breath sounds Abdomen: distended Chava Dwyer MD May 31, 2018 16:34
--- NOTE | 2018-05-31 17:39 | General Progress Note ---
Assessment/Plan Status: stable Assessment/Plan # Anemia of chronic disease -- prior w/u reviewed, likely multifactorial --> Hgb goal >7. Transfuse prn. --> anemia panel has been reviewed, ferritin 360, iron sat 13 --> no evidence of hemolysis --> Currently stable # Leukocytosis potentially related to PNA. --> Has improved/resolved. --> Abx have been completed. --> Cont to monitor for improvement # Decubitus ulcer of left hip, stage 4 and right hip stage 3 --> seen in the past by Dr. Clark, in the past has undergone debridement in 03/2018 --> Surgery management is following. Appreciate recs. --> :Apply Dakin's 1/4 strength packing .Loosely packed into wound .Apply Cavilon to Borders and cover with Biatain # PNA. Abx have been completed Appreciate consultation greatly! Subjective Date patient seen: May 31, 2018 Hematologic/Lymphatic: Reports: anemia Allergies: Coded Allergies: CEFTRIAXONE (Verified Allergy, Unknown, 04/04/18) Subjective Pt awake and alert. No acute events. VS stable. H/H stable. Objective Last 24 Hour Vital Signs Date Time Temp Pulse Resp B/P (MAP) Pulse Ox O2 Delivery O2 Flow Rate FiO2 05/31/18 16:00 90 05/31/18 13:20 85 20 100 Nasal Cannula 2.0 05/31/18 13:10 87 18 98 Nasal Cannula 2.0 05/31/18 12:13 98.0 05/31/18 12:00 91 05/31/18 12:00 98.0 93 20 108/63 (78) 99 98.0 05/31/18 11:43 97.1 05/31/18 09:03 106/64 05/31/18 09:00 97.1 85 16 106/64 (78) 92 97.1 05/31/18 09:00 Nasal Cannula 3.0 05/31/18 08:05 89 20 100 Nasal Cannula 2.0 05/31/18 08:00 87 05/31/18 07:55 88 18 98 Nasal Cannula 2.0 28 05/31/18 07:55 Nasal Cannula 2.0 05/31/18 07:54 98 Nasal Cannula 2.0 05/31/18 04:00 98.2 85 20 103/63 (76) 100 98.2 05/31/18 04:00 88 05/31/18 01:05 87 20 99 Nasal Cannula 3.0 32 05/31/18 00:55 89 20 99 Nasal Cannula 2.0 28 05/31/18 00:00 75 05/31/18 00:00 97.9 84 20 120/67 (84) 100 97.9 05/30/18 21:00 Nasal Cannula 3.0 05/30/18 20:00 89 05/30/18 20:00 96.7 86 20 118/62 (80) 99 96.7 05/30/18 19:18 84 20 99 Nasal Cannula 3.0 32 05/30/18 19:08 Nasal Cannula 2.0 28 05/30/18 19:08 87 20 98 Nasal Cannula 2.0 28 05/30/18 19:08 98 Nasal Cannula 2.0 28 Intake and Output 05/30/18 05/31/18 18:59 06:59 Intake Total 320 ml 557 ml Output Total 900 ml 650 ml Balance -580 ml -93 ml Intake Free Water 60 ml 90 ml IV Total 110 ml 107 ml Tube Feeding 150 ml 360 ml Output Urine Total 900 ml 650 ml # Bowel Movements 4 3 Laboratory Tests 05/31/18 14:00: White Blood Count 7.9, Red Blood Count 3.63L, Hemoglobin 9.3L, Hematocrit 30.6L , Mean Corpuscular Volume 84, Mean Corpuscular Hemoglobin 25.6L, Mean Corpuscular Hemoglobin Concent 30.4L, Red Cell Distribution Width 16.3H, Platelet Count 325, Mean Platelet Volume 7.8, Neutrophils (%) (Auto) 70.2, Lymphocytes (%) (Auto) 19.4L, Monocytes (%) (Auto) 5.6, Eosinophils (%) (Auto) 3.5H, Basophils (%) (Auto) 1.2, Sodium Level 147H, Potassium Level 4.2, Chloride Level 110H, Carbon Dioxide Level 27, Anion Gap 10, Blood Urea Nitrogen 30H, Creatinine 0.6, Estimat Glomerular Filtration Rate > 60, Glucose Level 99, Calcium Level 8.9, Total Bilirubin 0.2, Aspartate Amino Transf (AST/SGOT) 21, Alanine Aminotransferase (ALT/SGPT) 27, Alkaline Phosphatase 111, Total Protein 8.7H, Albumin 2.5L, Globulin 6.2, Albumin/Globulin Ratio 0.4L Height (Feet): 5 Height (Inches): 8.00 Weight (Pounds): 150 General Appearance: no apparent distress EENT: PERRL/EOMI Neck: normal alignment Cardiovascular: normal peripheral pulses Respiratory/Chest: no respiratory distress Abdomen: soft Nikolai Richards MD May 31, 2018 17:39
[2018-05-31 20:00] VITALS: BP 115/68
--- NOTE | 2018-05-31 21:25 | General Progress Note ---
Assessment/Plan Problem List: (1) UTI (urinary tract infection) ICD Codes: N39.0 - Urinary tract infection, site not specified SNOMED: 34574325 (2) Decubitus skin ulcer ICD Codes: L89.90 - Pressure ulcer of unspecified site, unspecified stage SNOMED: 046921222 (3) Sacral decubitus ulcer, stage IV ICD Codes: L89.154 - Pressure ulcer of sacral region, stage 4 SNOMED: 627986754, 219843154 (4) Cachexia ICD Codes: R64 - Cachexia SNOMED: 787013167 (5) PNA (pneumonia) ICD Codes: J18.9 - Pneumonia, unspecified organism SNOMED: 668381162 Status: progressing Assessment/Plan afebrile sepsis uti r/o pna debub abx per id nonverbal Subjective ROS Limited/Unobtainable: Yes Allergies: Coded Allergies: CEFTRIAXONE (Verified Allergy, Unknown, 04/04/18) Objective Last 24 Hour Vital Signs Date Time Temp Pulse Resp B/P (MAP) Pulse Ox O2 Delivery O2 Flow Rate FiO2 05/31/18 20:04 88 20 100 Nasal Cannula 2.0 28 05/31/18 20:00 97.5 82 20 115/68 (84) 96 97.5 05/31/18 20:00 84 05/31/18 19:54 Nasal Cannula 2.0 28 05/31/18 19:54 87 18 99 Nasal Cannula 2.0 28 05/31/18 19:54 99 Nasal Cannula 2.0 28 05/31/18 16:00 90 05/31/18 13:20 85 20 100 Nasal Cannula 2.0 28 05/31/18 13:10 87 18 98 Nasal Cannula 2.0 28 05/31/18 12:13 98.0 05/31/18 12:00 91 05/31/18 12:00 98.0 93 20 108/63 (78) 99 98.0 05/31/18 11:43 97.1 05/31/18 09:03 106/64 05/31/18 09:00 97.1 85 16 106/64 (78) 92 97.1 05/31/18 09:00 Nasal Cannula 3.0 05/31/18 08:05 89 20 100 Nasal Cannula 2.0 28 05/31/18 08:00 87 05/31/18 07:55 88 18 98 Nasal Cannula 2.0 28 05/31/18 07:55 Nasal Cannula 2.0 28 05/31/18 07:54 98 Nasal Cannula 2.0 28 05/31/18 04:00 98.2 85 20 103/63 (76) 100 98.2 05/31/18 04:00 88 05/31/18 01:05 87 20 99 Nasal Cannula 3.0 32 05/31/18 00:55 89 20 99 Nasal Cannula 2.0 28 05/31/18 00:00 75 05/31/18 00:00 97.9 84 20 120/67 (84) 100 97.9 Intake and Output 05/30/18 05/31/18 19:00 07:00 Intake Total 380 ml 547 ml Output Total 900 ml 650 ml Balance -520 ml -103 ml Intake Free Water 90 ml 80 ml IV Total 110 ml 107 ml Tube Feeding 180 ml 360 ml Output Urine Total 900 ml 650 ml # Bowel Movements 4 3 Laboratory Tests 05/31/18 14:00: White Blood Count 7.9, Red Blood Count 3.63L, Hemoglobin 9.3L, Hematocrit 30.6L , Mean Corpuscular Volume 84, Mean Corpuscular Hemoglobin 25.6L, Mean Corpuscular Hemoglobin Concent 30.4L, Red Cell Distribution Width 16.3H, Platelet Count 325, Mean Platelet Volume 7.8, Neutrophils (%) (Auto) 70.2, Lymphocytes (%) (Auto) 19.4L, Monocytes (%) (Auto) 5.6, Eosinophils (%) (Auto) 3.5H, Basophils (%) (Auto) 1.2, Sodium Level 147H, Potassium Level 4.2, Chloride Level 110H, Carbon Dioxide Level 27, Anion Gap 10, Blood Urea Nitrogen 30H, Creatinine 0.6, Estimat Glomerular Filtration Rate > 60, Glucose Level 99, Calcium Level 8.9, Total Bilirubin 0.2, Aspartate Amino Transf (AST/SGOT) 21, Alanine Aminotransferase (ALT/SGPT) 27, Alkaline Phosphatase 111, Total Protein 8.7H, Albumin 2.5L, Globulin 6.2, Albumin/Globulin Ratio 0.4L Height (Feet): 5 Height (Inches): 8.00 Weight (Pounds): 150 General Appearance: lethargic, confused Cardiovascular: normal rate Respiratory/Chest: lungs clear Hadadz,Ali MD May 31, 2018 21:25
--- NOTE | 2018-05-31 21:30 | Pulmonology Progress Note ---
Assessment/Plan Assessment/Plan PROBLEM LIST: 1. Multifocal pneumonia, healthcare-associated pneumonia. 2. [facility] resident. 3. Dementia/CVA. 4. Dysphagia. 5. Hypertension, CAD. 6. Protein albumin discordance. TREATMENT PLAN: 1. Optimize pulmonary hygiene/mobilize as tolerated. 2. Titrate down FiO2 to keep saturations greater than 90%. 3. P.r.n. BiPAP. 4. Continue antibiotics, follow up cultures. 5. Ifrji-tjv-jntyl and p.r.n. bronchodilators. 6. Aspiration precautions, cautious tube feeds. 7. Monitor volumes and renal function. 8. Heparin subcutaneous for DVT prophylaxis. 9. DNR/DNI, continue discuss goals of care. 10 CXR saturday Subjective ROS Limited/Unobtainable: Yes Allergies: Coded Allergies: CEFTRIAXONE (Verified Allergy, Unknown, 04/04/18) Subjective lethargic nonverbal no distress no fever noted moist cough Objective Last 24 Hour Vital Signs Date Time Temp Pulse Resp B/P (MAP) Pulse Ox O2 Delivery O2 Flow Rate FiO2 05/31/18 20:04 88 20 100 Nasal Cannula 2.0 28 05/31/18 20:00 97.5 82 20 115/68 (84) 96 97.5 05/31/18 20:00 84 05/31/18 19:54 Nasal Cannula 2.0 28 05/31/18 19:54 87 18 99 Nasal Cannula 2.0 28 05/31/18 19:54 99 Nasal Cannula 2.0 28 05/31/18 16:00 90 05/31/18 13:20 85 20 100 Nasal Cannula 2.0 28 05/31/18 13:10 87 18 98 Nasal Cannula 2.0 28 05/31/18 12:13 98.0 05/31/18 12:00 91 05/31/18 12:00 98.0 93 20 108/63 (78) 99 98.0 05/31/18 11:43 97.1 05/31/18 09:03 106/64 05/31/18 09:00 97.1 85 16 106/64 (78) 92 97.1 05/31/18 09:00 Nasal Cannula 3.0 05/31/18 08:05 89 20 100 Nasal Cannula 2.0 28 05/31/18 08:00 87 05/31/18 07:55 88 18 98 Nasal Cannula 2.0 28 05/31/18 07:55 Nasal Cannula 2.0 28 05/31/18 07:54 98 Nasal Cannula 2.0 28 05/31/18 04:00 98.2 85 20 103/63 (76) 100 98.2 05/31/18 04:00 88 05/31/18 01:05 87 20 99 Nasal Cannula 3.0 32 05/31/18 00:55 89 20 99 Nasal Cannula 2.0 28 05/31/18 00:00 75 05/31/18 00:00 97.9 84 20 120/67 (84) 100 97.9 Intake and Output 05/30/18 05/31/18 19:00 07:00 Intake Total 380 ml 547 ml Output Total 900 ml 650 ml Balance -520 ml -103 ml Intake Free Water 90 ml 80 ml IV Total 110 ml 107 ml Tube Feeding 180 ml 360 ml Output Urine Total 900 ml 650 ml # Bowel Movements 4 3 General Appearance: cachetic Respiratory/Chest: rhonchi Cardiovascular: normal rate, regular rhythm Abdomen: no organomegaly, non distended Extremities: no cyanosis Skin: no lesions Neurologic/Psychiatric: disoriented Lymphatic: no neck adenopathy Musculoskeletal: normal muscle bulk Microbiology Date/Time Source Procedure Growth Status 05/29/18 19:25 Blood Blood Culture - Preliminary NO GROWTH AFTER 24 HOURS Resulted 05/29/18 19:25 Blood Blood Culture - Preliminary NO GROWTH AFTER 24 HOURS Resulted 05/30/18 11:40 Wound Gram Stain - Final Resulted 05/30/18 11:40 Wound Wound Culture - Preliminary Resulted 05/29/18 23:00 Stool Clostridium difficile Toxin Assay - Final Complete 05/29/18 19:25 Urine,Clean Catch Urine Culture - Final NO GROWTH AFTER 48 HOURS Complete Laboratory Tests 05/31/18 14:00: White Blood Count 7.9, Red Blood Count 3.63L, Hemoglobin 9.3L, Hematocrit 30.6L , Mean Corpuscular Volume 84, Mean Corpuscular Hemoglobin 25.6L, Mean Corpuscular Hemoglobin Concent 30.4L, Red Cell Distribution Width 16.3H, Platelet Count 325, Mean Platelet Volume 7.8, Neutrophils (%) (Auto) 70.2, Lymphocytes (%) (Auto) 19.4L, Monocytes (%) (Auto) 5.6, Eosinophils (%) (Auto) 3.5H, Basophils (%) (Auto) 1.2, Sodium Level 147H, Potassium Level 4.2, Chloride Level 110H, Carbon Dioxide Level 27, Anion Gap 10, Blood Urea Nitrogen 30H, Creatinine 0.6, Estimat Glomerular Filtration Rate > 60, Glucose Level 99, Calcium Level 8.9, Total Bilirubin 0.2, Aspartate Amino Transf (AST/SGOT) 21, Alanine Aminotransferase (ALT/SGPT) 27, Alkaline Phosphatase 111, Total Protein 8.7H, Albumin 2.5L, Globulin 6.2, Albumin/Globulin Ratio 0.4L Current Medications Medications (Trade) Dose Ordered Sig/Briseida Route PRN Reason Start Time Stop Time Status Last Admin Dose Admin Acetaminophen (Tylenol) 650 mg EVERY 4 HOURS PRN GT Mild Pain/Temp > 100.5 05/29/18 23:45 06/28/18 23:44 05/31/18 11:43 Albuterol/ Ipratropium (Albuterol/ Ipratropium) 3 ml Q4H PRN HHN Shortness of Breath 05/29/18 23:45 06/03/18 23:44 Albuterol/ Ipratropium (Albuterol/ Ipratropium) 3 ml Q6HRT HHN 05/30/18 13:00 06/04/18 12:59 05/31/18 19:54 Ascorbic Acid (Vitamin C) 500 mg TWICE A DAY GT 05/30/18 18:00 06/29/18 17:59 05/31/18 17:07 Aspirin (ASA) 81 mg DAILY GT 05/30/18 09:00 06/29/18 08:59 05/31/18 09:02 Dextrose (Dextrose 50%) 25 ml Q30M PRN IV Hypoglycemia 05/30/18 00:30 06/29/18 00:29 Dextrose (Dextrose 50%) 50 ml Q30M PRN IV Hypoglycemia 05/30/18 00:30 06/29/18 00:29 Heparin Sodium (Porcine) (Heparin 5000 units/ml) 5,000 units EVERY 12 HOURS SUBQ 05/30/18 21:00 06/29/18 20:59 05/31/18 20:57 Hydralazine HCl (Apresoline) 25 mg Q4H PRN ORAL bp over 160 syst 05/30/18 15:15 06/29/18 15:14 Insulin Aspart (NovoLOG) BEFORE MEALS AND HS SUBQ 05/30/18 06:30 06/29/18 06:29 05/31/18 20:57 Insulin Detemir (Levemir) 6 units TWICE A DAY SUBQ 05/30/18 09:00 06/29/18 08:59 05/31/18 17:12 Lansoprazole (Prevacid) 30 mg BID GT 05/30/18 18:00 06/29/18 17:59 05/31/18 17:07 Lisinopril (Zestril) 5 mg DAILY GT 05/31/18 09:00 06/29/18 08:59 05/31/18 09:03 Magnesium Hydroxide (Mom) 30 ml DAILYPRN PRN GT Constipation 05/29/18 23:45 06/28/18 23:44 Meropenem 1 gm/ Sodium Chloride 55 ml @ 110 mls/hr Q8HR IVPB 05/30/18 06:00 06/04/18 05:59 05/31/18 21:01 Olanzapine (ZyPREXA) 2.5 mg BEDTIME PRN ORAL agitation 05/30/18 22:00 06/29/18 21:59 Sitagliptin Phosphate (Januvia) 100 mg ACBREAKFAST GT 05/30/18 06:30 06/29/18 06:29 05/31/18 05:35 Sodium Hypochlorite (Dakin's Quarter Strength) 1 applic DAILY TOPIC 05/31/18 09:00 06/30/18 08:59 05/31/18 02:21 Antonia Geiger DO May 31, 2018 21:30
[2018-06-01] VITALS: BP 107/63
[2018-06-01] MEDS: Albuterol/Ipratropium 3ml neb HHN SCH ×4 (01:28→20:23)
[2018-06-01 04:00] VITALS: BP 113/70
[2018-06-01] MEDS: Meropenem 1 GM in NS 55 ML IVPB SCH ×3 (05:39→21:44)
[2018-06-01] MEDS: NovoLOG Insulin Flexpen SUBQ SCH ×4 (05:40→20:33)
[2018-06-01] MEDS ORDERED: NS 275ml ONE (08:35)
[2018-06-01] MEDS: Ascorbic Acid 500mg tab GT SCH ×2 (08:45→17:39)
[2018-06-01] MEDS: Aspirin Baby 81mg GT SCH (08:45)
[2018-06-01] MEDS: Lisinopril 2.5mg tab GT SCH (08:46)
[2018-06-01] MEDS: Levemir Flexpen SUBQ SCH ×2 (08:49→18:28)
[2018-06-01] MEDS: Heparin 5000 units/ml inj SUBQ SCH ×2 (08:53→20:34)
--- NOTE | 2018-06-01 08:56 | Nephrology Progress Note ---
Assessment/Plan Problem List: (1) UTI (urinary tract infection) (2) Proteinuria (3) Acute renal failure (4) Cachexia Assessment Pneumonia- Hypoxia - Renal failure- Proteinuria- Hypoalbuminemia Anemia- UTI- Cachexia , Malnutrition- PEG- HypoTension on presentation DM Plan no labs today Fluid challenge- respiratory support- Antibiotics Monitor renal parameters hold bp meds albumin bolus Dc Metformin per orders Subjective ROS Limited/Unobtainable: No Constitutional: Reports: malaise Objective Objective Last 24 Hour Vital Signs Date Time Temp Pulse Resp B/P (MAP) Pulse Ox O2 Delivery O2 Flow Rate FiO2 06/01/18 07:26 81 20 100 Nasal Cannula 2.0 28 06/01/18 07:01 87 18 98 Nasal Cannula 2.0 28 06/01/18 07:01 Nasal Cannula 2.0 28 06/01/18 06:59 98 Nasal Cannula 2.0 28 06/01/18 04:00 91 06/01/18 04:00 98.3 91 16 113/70 (84) 100 98.3 06/01/18 01:38 82 18 100 Nasal Cannula 2.0 28 06/01/18 01:28 90 18 99 Nasal Cannula 2.0 28 06/01/18 00:00 97.9 86 18 107/63 (78) 97 97.9 06/01/18 00:00 90 05/31/18 21:00 Nasal Cannula 3.0 05/31/18 20:04 88 20 100 Nasal Cannula 2.0 28 05/31/18 20:00 97.5 82 20 115/68 (84) 96 97.5 05/31/18 20:00 84 05/31/18 19:54 Nasal Cannula 2.0 28 05/31/18 19:54 87 18 99 Nasal Cannula 2.0 28 05/31/18 19:54 99 Nasal Cannula 2.0 28 05/31/18 16:00 90 05/31/18 13:20 85 20 100 Nasal Cannula 2.0 28 05/31/18 13:10 87 18 98 Nasal Cannula 2.0 28 05/31/18 12:13 98.0 05/31/18 12:00 91 05/31/18 12:00 98.0 93 20 108/63 (78) 99 98.0 05/31/18 11:43 97.1 05/31/18 09:03 106/64 05/31/18 09:00 97.1 85 16 106/64 (60) 92 97.1 05/31/18 09:00 Nasal Cannula 3.0 Intake and Output 05/31/18 06/01/18 19:00 07:00 Intake Total 445 ml 680 ml Output Total 600 ml Balance -155 ml 680 ml Intake Free Water 100 ml 60 ml IV Total 55 ml 70 ml Tube Feeding 290 ml 550 ml Output Urine Total 600 ml # Voids 1 # Bowel Movements 1 1 Laboratory Tests 05/31/18 14:00: White Blood Count 7.9, Red Blood Count 3.63L, Hemoglobin 9.3L, Hematocrit 30.6L , Mean Corpuscular Volume 84, Mean Corpuscular Hemoglobin 25.6L, Mean Corpuscular Hemoglobin Concent 30.4L, Red Cell Distribution Width 16.3H, Platelet Count 325, Mean Platelet Volume 7.8, Neutrophils (%) (Auto) 70.2, Lymphocytes (%) (Auto) 19.4L, Monocytes (%) (Auto) 5.6, Eosinophils (%) (Auto) 3.5H, Basophils (%) (Auto) 1.2, Sodium Level 147H, Potassium Level 4.2, Chloride Level 110H, Carbon Dioxide Level 27, Anion Gap 10, Blood Urea Nitrogen 30H, Creatinine 0.6, Estimat Glomerular Filtration Rate > 60, Glucose Level 99, Calcium Level 8.9, Total Bilirubin 0.2, Aspartate Amino Transf (AST/SGOT) 21, Alanine Aminotransferase (ALT/SGPT) 27, Alkaline Phosphatase 111, Total Protein 8.7H, Albumin 2.5L, Globulin 6.2, Albumin/Globulin Ratio 0.4L Height (Feet): 5 Height (Inches): 8.00 Weight (Pounds): 150 General Appearance: no apparent distress Objective no change Chava Dwyer MD Jun 01, 2018 08:56
--- NOTE | 2018-06-01 10:27 | Pulmonology Progress Note ---
Assessment/Plan Assessment/Plan PROBLEM LIST: 1. Multifocal pneumonia, healthcare-associated pneumonia. 2. [facility] resident. 3. Dementia/CVA. 4. Dysphagia. 5. Hypertension, CAD. 6. Protein albumin discordance. TREATMENT PLAN: 1. Optimize pulmonary hygiene/mobilize as tolerated. 2. Titrate down FiO2 to keep saturations greater than 90%. 3. P.r.n. BiPAP. 4. Continue antibiotics, follow up cultures. 5. Oanjn-kbf-iwuow and p.r.n. bronchodilators. 6. Aspiration precautions, cautious tube feeds. 7. Monitor volumes and renal function. 8. Heparin subcutaneous for DVT prophylaxis. 9. DNR/DNI, continue discuss goals of care. 10 CXR saturday Subjective ROS Limited/Unobtainable: Yes Allergies: Coded Allergies: CEFTRIAXONE (Verified Allergy, Unknown, 04/04/18) Subjective lethargic nonverbal no distress no fever not getting oob on IVF Objective Last 24 Hour Vital Signs Date Time Temp Pulse Resp B/P (MAP) Pulse Ox O2 Delivery O2 Flow Rate FiO2 06/01/18 07:26 81 20 100 Nasal Cannula 2.0 28 06/01/18 07:01 87 18 98 Nasal Cannula 2.0 28 06/01/18 07:01 Nasal Cannula 2.0 28 06/01/18 06:59 98 Nasal Cannula 2.0 28 06/01/18 04:00 91 06/01/18 04:00 98.3 91 16 113/70 (84) 100 98.3 06/01/18 01:38 82 18 100 Nasal Cannula 2.0 28 06/01/18 01:28 90 18 99 Nasal Cannula 2.0 28 06/01/18 00:00 97.9 86 18 107/63 (78) 97 97.9 06/01/18 00:00 90 05/31/18 21:00 Nasal Cannula 3.0 05/31/18 20:04 88 20 100 Nasal Cannula 2.0 28 05/31/18 20:00 97.5 82 20 115/68 (84) 96 97.5 05/31/18 20:00 84 05/31/18 19:54 Nasal Cannula 2.0 28 05/31/18 19:54 87 18 99 Nasal Cannula 2.0 28 05/31/18 19:54 99 Nasal Cannula 2.0 28 05/31/18 16:00 90 05/31/18 13:20 85 20 100 Nasal Cannula 2.0 28 05/31/18 13:10 87 18 98 Nasal Cannula 2.0 28 05/31/18 12:13 98.0 05/31/18 12:00 91 05/31/18 12:00 98.0 93 20 108/63 (78) 99 98.0 05/31/18 11:43 97.1 Intake and Output 05/31/18 06/01/18 19:00 07:00 Intake Total 445 ml 680 ml Output Total 600 ml Balance -155 ml 680 ml Intake Free Water 100 ml 60 ml IV Total 55 ml 70 ml Tube Feeding 290 ml 550 ml Output Urine Total 600 ml # Voids 1 # Bowel Movements 1 1 General Appearance: cachetic HEENT: atraumatic, anicteric Respiratory/Chest: rhonchi Cardiovascular: normal rate, regular rhythm, murmur systolic, edema Abdomen: soft, non tender, no organomegaly Neurologic/Psychiatric: disoriented, unresponsiveness Microbiology Date/Time Source Procedure Growth Status 05/29/18 19:25 Blood Blood Culture - Preliminary NO GROWTH AFTER 48 HOURS Resulted 05/29/18 19:25 Blood Blood Culture - Preliminary NO GROWTH AFTER 48 HOURS Resulted 05/30/18 11:40 Wound Gram Stain - Final Resulted 05/30/18 11:40 Wound Wound Culture - Preliminary Resulted 05/29/18 23:00 Stool Clostridium difficile Toxin Assay - Final Complete 05/29/18 19:25 Urine,Clean Catch Urine Culture - Final NO GROWTH AFTER 48 HOURS Complete 06/01/18 01:00 Rectum Received Laboratory Tests 05/31/18 14:00: White Blood Count 7.9, Red Blood Count 3.63L, Hemoglobin 9.3L, Hematocrit 30.6L , Mean Corpuscular Volume 84, Mean Corpuscular Hemoglobin 25.6L, Mean Corpuscular Hemoglobin Concent 30.4L, Red Cell Distribution Width 16.3H, Platelet Count 325, Mean Platelet Volume 7.8, Neutrophils (%) (Auto) 70.2, Lymphocytes (%) (Auto) 19.4L, Monocytes (%) (Auto) 5.6, Eosinophils (%) (Auto) 3.5H, Basophils (%) (Auto) 1.2, Sodium Level 147H, Potassium Level 4.2, Chloride Level 110H, Carbon Dioxide Level 27, Anion Gap 10, Blood Urea Nitrogen 30H, Creatinine 0.6, Estimat Glomerular Filtration Rate > 60, Glucose Level 99, Calcium Level 8.9, Total Bilirubin 0.2, Aspartate Amino Transf (AST/SGOT) 21, Alanine Aminotransferase (ALT/SGPT) 27, Alkaline Phosphatase 111, Total Protein 8.7H, Albumin 2.5L, Globulin 6.2, Albumin/Globulin Ratio 0.4L Current Medications Medications (Trade) Dose Ordered Sig/Briseida Route PRN Reason Start Time Stop Time Status Last Admin Dose Admin Acetaminophen (Tylenol) 650 mg EVERY 4 HOURS PRN GT Mild Pain/Temp > 100.5 05/29/18 23:45 06/28/18 23:44 05/31/18 11:43 Albuterol/ Ipratropium (Albuterol/ Ipratropium) 3 ml Q4H PRN HHN Shortness of Breath 05/29/18 23:45 06/03/18 23:44 Albuterol/ Ipratropium (Albuterol/ Ipratropium) 3 ml Q6HRT HHN 05/30/18 13:00 06/04/18 12:59 06/01/18 06:59 Ascorbic Acid (Vitamin C) 500 mg TWICE A DAY GT 05/30/18 18:00 06/29/18 17:59 06/01/18 08:45 Aspirin (ASA) 81 mg DAILY GT 05/30/18 09:00 06/29/18 08:59 06/01/18 08:45 Dextrose (Dextrose 50%) 25 ml Q30M PRN IV Hypoglycemia 05/30/18 00:30 06/29/18 00:29 Dextrose (Dextrose 50%) 50 ml Q30M PRN IV Hypoglycemia 05/30/18 00:30 06/29/18 00:29 Heparin Sodium (Porcine) (Heparin 5000 units/ml) 5,000 units EVERY 12 HOURS SUBQ 05/30/18 21:00 06/29/18 20:59 06/01/18 08:53 Hydralazine HCl (Apresoline) 25 mg Q4H PRN ORAL bp over 160 syst 05/30/18 15:15 06/29/18 15:14 Insulin Aspart (NovoLOG) BEFORE MEALS AND HS SUBQ 05/30/18 06:30 06/29/18 06:29 06/01/18 05:40 Insulin Detemir (Levemir) 6 units TWICE A DAY SUBQ 05/30/18 09:00 06/29/18 08:59 06/01/18 08:49 Lansoprazole (Prevacid) 30 mg BID GT 05/30/18 18:00 06/29/18 17:59 06/01/18 08:45 Lisinopril (Zestril) 5 mg DAILY GT 05/31/18 09:00 06/29/18 08:59 06/01/18 08:46 Magnesium Hydroxide (Mom) 30 ml DAILYPRN PRN GT Constipation 05/29/18 23:45 06/28/18 23:44 Meropenem 1 gm/ Sodium Chloride 55 ml @ 110 mls/hr Q8HR IVPB 05/30/18 06:00 06/04/18 05:59 06/01/18 05:39 Olanzapine (ZyPREXA) 2.5 mg BEDTIME PRN ORAL agitation 05/30/18 22:00 06/29/18 21:59 Sitagliptin Phosphate (Januvia) 100 mg ACBREAKFAST GT 05/30/18 06:30 06/29/18 06:29 06/01/18 05:39 Sodium Hypochlorite (Dakin's Quarter Strength) 1 applic DAILY TOPIC 05/31/18 09:00 06/30/18 08:59 05/31/18 02:21 Antonia Geiger DO Jun 01, 2018 10:27
--- NOTE | 2018-06-01 11:54 | Infectious Diseases Prog Note ---
Assessment/Plan Assessment/Plan A; Sepsis Pneumonia with Proteus ESBL Dementia DM Pressure ulcers P; Continue Meropenem Wound care Subjective ROS Limited/Unobtainable: Yes Allergies: Coded Allergies: CEFTRIAXONE (Verified Allergy, Unknown, 04/04/18) Objective Vital Signs Last 24 Hour Vital Signs Date Time Temp Pulse Resp B/P (MAP) Pulse Ox O2 Delivery O2 Flow Rate FiO2 06/01/18 07:26 81 20 100 Nasal Cannula 2.0 28 06/01/18 07:01 87 18 98 Nasal Cannula 2.0 28 06/01/18 07:01 Nasal Cannula 2.0 28 06/01/18 06:59 98 Nasal Cannula 2.0 28 06/01/18 04:00 91 06/01/18 04:00 98.3 91 16 113/70 (84) 100 98.3 06/01/18 01:38 82 18 100 Nasal Cannula 2.0 28 06/01/18 01:28 90 18 99 Nasal Cannula 2.0 28 06/01/18 00:00 97.9 86 18 107/63 (78) 97 97.9 06/01/18 00:00 90 05/31/18 21:00 Nasal Cannula 3.0 05/31/18 20:04 88 20 100 Nasal Cannula 2.0 28 05/31/18 20:00 97.5 82 20 115/68 (84) 96 97.5 05/31/18 20:00 84 05/31/18 19:54 Nasal Cannula 2.0 28 05/31/18 19:54 87 18 99 Nasal Cannula 2.0 28 05/31/18 19:54 99 Nasal Cannula 2.0 28 05/31/18 16:00 90 05/31/18 13:20 85 20 100 Nasal Cannula 2.0 28 05/31/18 13:10 87 18 98 Nasal Cannula 2.0 28 05/31/18 12:13 98.0 05/31/18 12:00 91 05/31/18 12:00 98.0 93 20 108/63 (78) 99 98.0 Height (Feet): 5 Height (Inches): 8.00 Weight (Pounds): 150 General Appearance: no acute distress HEENT: normocephalic Respiratory/Chest: lungs clear Cardiovascular: normal rate Abdomen: soft, non tender, other - GT feeding Genitourinary: other - Beltran catheter Extremities: no edema Skin: ulcers Neurologic/Psychiatric: aphasia Microbiology Date/Time Source Procedure Growth Status 05/29/18 19:25 Blood Blood Culture - Preliminary NO GROWTH AFTER 48 HOURS Resulted 05/29/18 19:25 Blood Blood Culture - Preliminary NO GROWTH AFTER 48 HOURS Resulted 05/30/18 11:40 Wound Gram Stain - Final Resulted 05/30/18 11:40 Wound Culture - Preliminary Gram Negative Bacillus 1 Gram Negative Bacillus 2 Gram Positive Cocci Resulted 05/29/18 23:00 Stool Clostridium difficile Toxin Assay - Final Complete 05/29/18 19:25 Urine,Clean Catch Urine Culture - Final NO GROWTH AFTER 48 HOURS Complete 06/01/18 01:00 Rectum Received Laboratory Tests Test 05/31/18 14:00 White Blood Count 7.9 K/UL (4.8-10.8) Red Blood Count 3.63 M/UL (4.70-6.10) L Hemoglobin 9.3 G/DL (14.2-18.0) L Hematocrit 30.6 % (42.0-52.0) L Mean Corpuscular Volume 84 FL (80-99) Mean Corpuscular Hemoglobin 25.6 PG (27.0-31.0) L Mean Corpuscular Hemoglobin Concent 30.4 G/DL (32.0-36.0) L Red Cell Distribution Width 16.3 % (11.6-14.8) H Platelet Count 325 K/UL (150-450) Mean Platelet Volume 7.8 FL (6.5-10.1) Neutrophils (%) (Auto) 70.2 % (45.0-75.0) Lymphocytes (%) (Auto) 19.4 % (20.0-45.0) L Monocytes (%) (Auto) 5.6 % (1.0-10.0) Eosinophils (%) (Auto) 3.5 % (0.0-3.0) H Basophils (%) (Auto) 1.2 % (0.0-2.0) Sodium Level 147 MMOL/L (136-145) H Potassium Level 4.2 MMOL/L (3.5-5.1) Chloride Level 110 MMOL/L (98-107) H Carbon Dioxide Level 27 MMOL/L (21-32) Anion Gap 10 mmol/L (5-15) Blood Urea Nitrogen 30 mg/dL (7-18) H Creatinine 0.6 MG/DL (0.55-1.30) Estimat Glomerular Filtration Rate > 60 mL/min (>60) Glucose Level 99 MG/DL (74-106) Calcium Level 8.9 MG/DL (8.5-10.1) Total Bilirubin 0.2 MG/DL (0.2-1.0) Aspartate Amino Transf (AST/SGOT) 21 U/L (15-37) Alanine Aminotransferase (ALT/SGPT) 27 U/L (12-78) Alkaline Phosphatase 111 U/L (46-116) Total Protein 8.7 G/DL (6.4-8.2) H Albumin 2.5 G/DL (3.4-5.0) L Globulin 6.2 g/dL Albumin/Globulin Ratio 0.4 (1.0-2.7) L Current Medications Medications (Trade) Dose Ordered Sig/Briseida Route PRN Reason Start Time Stop Time Status Last Admin Dose Admin Acetaminophen (Tylenol) 650 mg EVERY 4 HOURS PRN GT Mild Pain/Temp > 100.5 05/29/18 23:45 06/28/18 23:44 05/31/18 11:43 Albuterol/ Ipratropium (Albuterol/ Ipratropium) 3 ml Q4H PRN HHN Shortness of Breath 05/29/18 23:45 06/03/18 23:44 Albuterol/ Ipratropium (Albuterol/ Ipratropium) 3 ml Q6HRT HHN 05/30/18 13:00 06/04/18 12:59 06/01/18 06:59 Ascorbic Acid (Vitamin C) 500 mg TWICE A DAY GT 05/30/18 18:00 06/29/18 17:59 06/01/18 08:45 Aspirin (ASA) 81 mg DAILY GT 05/30/18 09:00 06/29/18 08:59 06/01/18 08:45 Dextrose (Dextrose 50%) 25 ml Q30M PRN IV Hypoglycemia 05/30/18 00:30 06/29/18 00:29 Dextrose (Dextrose 50%) 50 ml Q30M PRN IV Hypoglycemia 05/30/18 00:30 06/29/18 00:29 Heparin Sodium (Porcine) (Heparin 5000 units/ml) 5,000 units EVERY 12 HOURS SUBQ 10/19/18 21:00 06/29/18 20:59 06/01/18 08:53 Hydralazine HCl (Apresoline) 25 mg Q4H PRN ORAL bp over 160 syst 05/30/18 15:15 06/29/18 15:14 Insulin Aspart (NovoLOG) BEFORE MEALS AND HS SUBQ 05/30/18 06:30 06/29/18 06:29 06/01/18 05:40 Insulin Detemir (Levemir) 6 units TWICE A DAY SUBQ 05/30/18 09:00 06/29/18 08:59 06/01/18 08:49 Lansoprazole (Prevacid) 30 mg BID GT 05/30/18 18:00 06/29/18 17:59 06/01/18 08:45 Lisinopril (Zestril) 5 mg DAILY GT 05/31/18 09:00 06/29/18 08:59 06/01/18 08:46 Magnesium Hydroxide (Mom) 30 ml DAILYPRN PRN GT Constipation 05/29/18 23:45 06/28/18 23:44 Meropenem 1 gm/ Sodium Chloride 55 ml @ 110 mls/hr Q8HR IVPB 05/30/18 06:00 06/04/18 05:59 06/01/18 05:39 Olanzapine (ZyPREXA) 2.5 mg BEDTIME PRN ORAL agitation 05/30/18 22:00 06/29/18 21:59 Sitagliptin Phosphate (Januvia) 100 mg ACBREAKFAST GT 05/30/18 06:30 06/29/18 06:29 06/01/18 05:39 Sodium Hypochlorite (Dakin's Quarter Strength) 1 applic DAILY TOPIC 05/31/18 09:00 06/30/18 08:59 05/31/18 02:21 Herson Palmer MD Jun 01, 2018 11:54
[2018-06-01] MEDS: Dakin's 0.125% Soln (Quarter Strength) 16oz TOPIC SCH (12:57)
--- NOTE | 2018-06-01 14:21 | General Progress Note ---
Assessment/Plan Status: stable Assessment/Plan # Anemia of chronic disease -- prior w/u reviewed, likely multifactorial --> Hgb goal >7. Transfuse prn. --> anemia panel has been reviewed, ferritin 360, iron sat 13 --> no evidence of hemolysis --> Currently stable # Leukocytosis potentially related to PNA. --> Has improved/resolved. --> Abx have been completed. --> Cont to monitor # Decubitus ulcer of left hip, stage 4 and right hip stage 3 --> seen in the past by Dr. Clark, in the past has undergone debridement in 03/2018 --> Surgery management is following. Appreciate recs. --> Apply Dakin's 1/4 strength packing .Loosely packed into wound .Apply Cavilon to Borders and cover with Biatain # PNA. Abx have been completed --> CXR: Bilateral diffuse interstitial disease. This is less severe than on prior exam. Appreciate consultation greatly! Subjective Date patient seen: Jun 01, 2018 ROS Limited/Unobtainable: Yes Allergies: Coded Allergies: CEFTRIAXONE (Verified Allergy, Unknown, 04/04/18) Subjective Pt awake and alert. No acute events. VS stable. H/H stable. Objective Last 24 Hour Vital Signs Date Time Temp Pulse Resp B/P (MAP) Pulse Ox O2 Delivery O2 Flow Rate FiO2 06/01/18 13:35 78 20 100 Nasal Cannula 2.0 06/01/18 13:13 81 18 99 Nasal Cannula 2.0 06/01/18 12:00 89 06/01/18 08:00 100 06/01/18 07:26 81 20 100 Nasal Cannula 2.0 06/01/18 07:01 87 18 98 Nasal Cannula 2.0 28 06/01/18 07:01 Nasal Cannula 2.0 28 06/01/18 06:59 98 Nasal Cannula 2.0 06/01/18 04:00 91 06/01/18 04:00 98.3 91 16 113/70 (84) 100 98.3 06/01/18 01:38 82 18 100 Nasal Cannula 2.0 28 06/01/18 01:28 90 18 99 Nasal Cannula 2.0 28 06/01/18 00:00 97.9 86 18 107/63 (78) 97 97.9 06/01/18 00:00 90 05/31/18 21:00 Nasal Cannula 3.0 05/31/18 20:04 88 20 100 Nasal Cannula 2.0 28 05/31/18 20:00 97.5 82 20 115/68 (84) 96 97.5 05/31/18 20:00 84 05/31/18 19:54 Nasal Cannula 2.0 28 05/31/18 19:54 87 18 99 Nasal Cannula 2.0 28 05/31/18 19:54 99 Nasal Cannula 2.0 28 05/31/18 16:00 90 Intake and Output 05/31/18 06/01/18 19:00 07:00 Intake Total 445 ml 680 ml Output Total 600 ml Balance -155 ml 680 ml Intake Free Water 100 ml 60 ml IV Total 55 ml 70 ml Tube Feeding 290 ml 550 ml Output Urine Total 600 ml # Voids 1 # Bowel Movements 1 1 Height (Feet): 5 Height (Inches): 8.00 Weight (Pounds): 150 General Appearance: no apparent distress EENT: PERRL/EOMI Neck: normal alignment Cardiovascular: normal peripheral pulses Respiratory/Chest: no respiratory distress Abdomen: soft Nikolai Richards MD Jun 01, 2018 14:21
[2018-06-01 21:11] VITALS: BP 125/73
--- NOTE | 2018-06-01 21:27 | General Progress Note ---
Assessment/Plan Problem List: (1) UTI (urinary tract infection) ICD Codes: N39.0 - Urinary tract infection, site not specified SNOMED: 45580337 (2) Decubitus skin ulcer ICD Codes: L89.90 - Pressure ulcer of unspecified site, unspecified stage SNOMED: 263086019 (3) Sacral decubitus ulcer, stage IV ICD Codes: L89.154 - Pressure ulcer of sacral region, stage 4 SNOMED: 214237311, 333349359 (4) Cachexia ICD Codes: R64 - Cachexia SNOMED: 206688548 (5) PNA (pneumonia) ICD Codes: J18.9 - Pneumonia, unspecified organism SNOMED: 249600598 Status: progressing Assessment/Plan obs sepsis uti afebrile abx per id no acute events nonverbal Subjective ROS Limited/Unobtainable: Yes Allergies: Coded Allergies: CEFTRIAXONE (Verified Allergy, Unknown, 04/04/18) Objective Last 24 Hour Vital Signs Date Time Temp Pulse Resp B/P (MAP) Pulse Ox O2 Delivery O2 Flow Rate FiO2 06/01/18 21:11 97.9 98 18 125/73 (90) 97 97.9 06/01/18 20:34 100 20 100 Nasal Cannula 2.0 28 06/01/18 20:23 Nasal Cannula 2.0 28 06/01/18 20:23 102 20 99 Nasal Cannula 2.0 28 06/01/18 20:22 99 Nasal Cannula 2.0 28 06/01/18 20:00 101 06/01/18 16:00 94 06/01/18 13:35 78 20 100 Nasal Cannula 2.0 28 06/01/18 13:13 81 18 99 Nasal Cannula 2.0 28 06/01/18 12:00 89 06/01/18 09:00 Nasal Cannula 3.0 06/01/18 08:00 100 06/01/18 07:26 81 20 100 Nasal Cannula 2.0 28 06/01/18 07:01 87 18 98 Nasal Cannula 2.0 28 06/01/18 07:01 Nasal Cannula 2.0 28 06/01/18 06:59 98 Nasal Cannula 2.0 28 06/01/18 04:00 91 06/01/18 04:00 98.3 91 16 113/70 (84) 100 98.3 06/01/18 01:38 82 18 100 Nasal Cannula 2.0 28 06/01/18 01:28 90 18 99 Nasal Cannula 2.0 28 06/01/18 00:00 97.9 86 18 107/63 (78) 97 97.9 06/01/18 00:00 90 Intake and Output 05/31/18 06/01/18 18:59 06:59 Intake Total 415 ml 760 ml Output Total 600 ml Balance -185 ml 760 ml Intake Free Water 90 ml 90 ml IV Total 55 ml 70 ml Tube Feeding 270 ml 600 ml Output Urine Total 600 ml # Voids 1 # Bowel Movements 1 1 Height (Feet): 5 Height (Inches): 8.00 Weight (Pounds): 150 General Appearance: lethargic, confused Jamia Wu MD Jun 01, 2018 21:27
--- NOTE | 2018-06-01 21:41 | General Progress Note ---
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 donepezil Zyprexa prn Subjective Date patient seen: Jun 01, 2018 Neurologic/Psychiatric: Reports: anxiety Allergies: Coded Allergies: CEFTRIAXONE (Verified Allergy, Unknown, 04/04/18) Objective Last 24 Hour Vital Signs Date Time Temp Pulse Resp B/P (MAP) Pulse Ox O2 Delivery O2 Flow Rate FiO2 06/01/18 21:11 97.9 98 18 125/73 (90) 97 97.9 06/01/18 20:34 100 20 100 Nasal Cannula 2.0 28 06/01/18 20:23 Nasal Cannula 2.0 28 06/01/18 20:23 102 20 99 Nasal Cannula 2.0 28 06/01/18 20:22 99 Nasal Cannula 2.0 28 06/01/18 20:00 101 06/01/18 16:00 94 06/01/18 13:35 78 20 100 Nasal Cannula 2.0 28 06/01/18 13:13 81 18 99 Nasal Cannula 2.0 28 06/01/18 12:00 89 06/01/18 09:00 Nasal Cannula 3.0 06/01/18 08:00 100 06/01/18 07:26 81 20 100 Nasal Cannula 2.0 28 06/01/18 07:01 87 18 98 Nasal Cannula 2.0 28 06/01/18 07:01 Nasal Cannula 2.0 28 06/01/18 06:59 98 Nasal Cannula 2.0 28 06/01/18 04:00 91 06/01/18 04:00 98.3 91 16 113/70 (84) 100 98.3 06/01/18 01:38 82 18 100 Nasal Cannula 2.0 28 06/01/18 01:28 90 18 99 Nasal Cannula 2.0 28 06/01/18 00:00 97.9 86 18 107/63 (78) 97 97.9 06/01/18 00:00 90 Intake and Output 05/31/18 06/01/18 18:59 06:59 Intake Total 415 ml 760 ml Output Total 600 ml Balance -185 ml 760 ml Intake Free Water 90 ml 90 ml IV Total 55 ml 70 ml Tube Feeding 270 ml 600 ml Output Urine Total 600 ml # Voids 1 # Bowel Movements 1 1 Height (Feet): 5 Height (Inches): 8.00 Weight (Pounds): 150 General Appearance: no apparent distress, alert, confused Shawn Meza MD Jun 01, 2018 21:41
[2018-06-02] VITALS: BP 130/70
[2018-06-02] MEDS: Albuterol/Ipratropium 3ml neb HHN SCH ×3 (01:07→13:42)
[2018-06-02 04:00] VITALS: BP 117/69
[2018-06-02] MEDS: Meropenem 1 GM in NS 55 ML IVPB SCH ×2 (05:42→14:36)
[2018-06-02] MEDS: NovoLOG Insulin Flexpen SUBQ SCH ×3 (05:47→16:47)
[2018-06-02 05:55] LABS: BASOPHILS % (AUTO) 1.5 % (0.0-2.0); EOSINOPHILS % (AUTO) 7.7 % (0.0-3.0); HEMATOCRIT 32.9 % (42.0-52.0); HEMOGLOBIN 10.2 G/DL (14.2-18.0); LYMPHOCYTES % (AUTO) 24.9 % (20.0-45.0); MEAN CORPUSCULAR VOLUME 85 FL (80-99); MONOCYTES % (AUTO) 6.3 % (1.0-10.0); NEUTROPHILS % (AUTO) 59.6 % (45.0-75.0); PLATELET COUNT 383 K/UL (150-450); RED BLOOD COUNT 3.88 M/UL (4.70-6.10); RED CELL DISTRIBUTION WIDTH 16.3 % (11.6-14.8); WHITE BLOOD COUNT 8.2 K/UL (4.8-10.8)
[2018-06-02 06:09] LABS: ALANINE AMINOTRANSFERASE 22 U/L (12-78); ALBUMIN 2.5 G/DL (3.4-5.0); ALBUMIN/GLOBULIN RATIO 0.4 (1.0-2.7); ALKALINE PHOSPHATASE 132 U/L (46-116); ANION GAP 3 mmol/L (5-15); ASPARTATE AMINO TRANSFERASE 19 U/L (15-37); BILIRUBIN,TOTAL 0.1 MG/DL (0.2-1.0); BLOOD UREA NITROGEN 31 mg/dL (7-18); CALCIUM 9.2 MG/DL (8.5-10.1); CARBON DIOXIDE 32 MMOL/L (21-32); CHLORIDE 107 MMOL/L (98-107); CREATININE 0.6 MG/DL (0.55-1.30); PHOSPHORUS 2.6 MG/DL (2.5-4.9); POTASSIUM 4.5 MMOL/L (3.5-5.1); SODIUM 142 MMOL/L (136-145)
[2018-06-02 08:00] VITALS: BP 111/66
[2018-06-02] MEDS: Aspirin Baby 81mg GT SCH (08:32)
[2018-06-02] MEDS: Lisinopril 2.5mg tab GT SCH (08:32)
[2018-06-02] MEDS: Ascorbic Acid 500mg tab GT SCH (08:32)
[2018-06-02] MEDS: Heparin 5000 units/ml inj SUBQ SCH (08:33)
[2018-06-02] MEDS: Levemir Flexpen SUBQ SCH (08:34)
[2018-06-02] MEDS: Dakin's 0.125% Soln (Quarter Strength) 16oz TOPIC SCH (08:35)
--- NOTE | 2018-06-02 11:18 | Diagnostic Imaging Report ---
Indication: Cough Comparison: 05/29/2018 A single view chest radiograph was obtained. Findings: Interstitial edema has improved with the the current study showing some mild residual interstitial reticular markings. Heart size is normal. IMPRESSION: Improved interstitial disease compared to last exam probably on the basis of improved interstitial edema. Correlate clinically
[2018-06-02 12:00] VITALS: BP 114/69
--- NOTE | 2018-06-02 13:17 | Pulmonology Progress Note ---
Assessment/Plan Assessment/Plan ASSESSMENT: The patient is a 68-year-old male long term resident with acute on chronic hypoxemic hypercapnic respiratory failure, bilateral infiltrates, likely recurrent healthcare-associated pneumonia, dementia, CVA, dysphagia, hypertension, and CAD. PROBLEM LIST: 1. Multifocal pneumonia, healthcare-associated pneumonia. 2. shelter resident. 3. Dementia/CVA. 4. Dysphagia. 5. Hypertension, CAD. 6. Protein albumin discordance. TREATMENT PLAN: 1. Optimize pulmonary hygiene/mobilize as tolerated. 2. Titrate down FiO2 to keep saturations greater than 90%. 3. P.r.n. BiPAP. 4. Antibiotics per ID, F/U Cx's 5. Gttor-cbk-jwtck and p.r.n. bronchodilators. 6. Aspiration precautions, cautious tube feeds. 7. Monitor volumes and renal function. 8. Heparin subcutaneous for DVT prophylaxis. 9. DNR/DNI, continue discuss goals of care. 10. Given discordance between albumin and protein, I would consider evaluation for plasma cell disorder if that is within the goals of care, defer to PMD and HEME. Subjective Allergies: Coded Allergies: CEFTRIAXONE (Verified Allergy, Unknown, 04/04/18) Subjective AFVSS, O2 needs stable, no distress,monse TF's Objective Last 24 Hour Vital Signs Date Time Temp Pulse Resp B/P (MAP) Pulse Ox O2 Delivery O2 Flow Rate FiO2 06/02/18 12:00 98.1 98 20 114/69 (84) 100 98.1 06/02/18 11:58 96 06/02/18 09:00 Nasal Cannula 3.0 06/02/18 08:32 111/66 06/02/18 08:00 97.9 101 22 111/66 (81) 96 97.9 06/02/18 07:43 98 06/02/18 07:17 92 20 100 Nasal Cannula 2.0 28 06/02/18 07:12 98 Nasal Cannula 3.0 32 06/02/18 07:12 Nasal Cannula 3.0 32 06/02/18 07:10 91 20 98 Nasal Cannula 3.0 32 06/02/18 04:00 88 06/02/18 04:00 97.3 95 18 117/69 (85) 100 97.3 06/02/18 01:21 99 20 100 Nasal Cannula 2.0 28 06/02/18 01:07 99 20 99 Nasal Cannula 2.0 28 06/02/18 00:00 96 06/02/18 00:00 98.1 70 18 130/70 (90) 98 98.1 06/01/18 21:11 97.9 98 18 125/73 (90) 97 97.9 06/01/18 21:00 Nasal Cannula 3.0 06/01/18 20:34 100 20 100 Nasal Cannula 2.0 28 06/01/18 20:23 Nasal Cannula 2.0 28 06/01/18 20:23 102 20 99 Nasal Cannula 2.0 28 06/01/18 20:22 99 Nasal Cannula 2.0 28 06/01/18 20:00 101 06/01/18 16:00 94 06/01/18 13:35 78 20 100 Nasal Cannula 2.0 28 Intake and Output 06/01/18 06/02/18 19:00 07:00 Output Total 450 ml 1000 ml Balance -450 ml -1000 ml Output Urine Total 450 ml 1000 ml # Voids 1 # Bowel Movements 2 1 General Appearance: cachetic HEENT: normocephalic, atraumatic Respiratory/Chest: chest wall non-tender, lungs clear, normal breath sounds, no respiratory distress, no accessory muscle use Cardiovascular: normal peripheral pulses, normal rate, regular rhythm Abdomen: normal bowel sounds, soft, non tender, no organomegaly, non distended , no mass, other - GT Extremities: no cyanosis, no clubbing, no edema Microbiology Date/Time Source Procedure Growth Status 06/01/18 01:00 Sputum Induced Gram Stain - Final Resulted 06/01/18 01:00 Sputum Induced Sputum Culture - Preliminary Resulted 06/01/18 01:00 Rectum - Preliminary Resulted Laboratory Tests 06/02/18 05:35: White Blood Count 8.2, Red Blood Count 3.88L, Hemoglobin 10.2L, Hematocrit 32.9L , Mean Corpuscular Volume 85, Mean Corpuscular Hemoglobin 26.2L, Mean Corpuscular Hemoglobin Concent 30.8L, Red Cell Distribution Width 16.3H, Platelet Count 383, Mean Platelet Volume 7.9, Neutrophils (%) (Auto) 59.6, Lymphocytes (%) (Auto) 24.9, Monocytes (%) (Auto) 6.3, Eosinophils (%) (Auto) 7.7H, Basophils (%) (Auto) 1.5, Sodium Level 142, Potassium Level 4.5, Chloride Level 107, Carbon Dioxide Level 32, Anion Gap 3L, Blood Urea Nitrogen 31H, Creatinine 0.6, Estimat Glomerular Filtration Rate > 60, Glucose Level 167H, Calcium Level 9.2, Phosphorus Level 2.6, Magnesium Level 2.2, Total Bilirubin 0.1L, Aspartate Amino Transf (AST/SGOT) 19, Alanine Aminotransferase (ALT/SGPT) 22, Alkaline Phosphatase 132H, C-Reactive Protein, Quantitative 4.7H, Pro-B- Type Natriuretic Peptide 226H, Total Protein 9.2H, Albumin 2.5L, Globulin 6.7, Albumin/Globulin Ratio 0.4L Current Medications Medications (Trade) Dose Ordered Sig/Briseida Route PRN Reason Start Time Stop Time Status Last Admin Dose Admin Acetaminophen (Tylenol) 650 mg EVERY 4 HOURS PRN GT Mild Pain/Temp > 100.5 05/29/18 23:45 06/28/18 23:44 05/31/18 11:43 Albuterol/ Ipratropium (Albuterol/ Ipratropium) 3 ml Q4H PRN HHN Shortness of Breath 05/29/18 23:45 06/03/18 23:44 Albuterol/ Ipratropium (Albuterol/ Ipratropium) 3 ml Q6HRT HHN 05/30/18 13:00 06/04/18 12:59 06/02/18 07:10 Ascorbic Acid (Vitamin C) 500 mg TWICE A DAY GT 05/30/18 18:00 06/29/18 17:59 06/02/18 08:32 Aspirin (ASA) 81 mg DAILY GT 05/30/18 09:00 06/29/18 08:59 06/02/18 08:32 Dextrose (Dextrose 50%) 25 ml Q30M PRN IV Hypoglycemia 05/30/18 00:30 06/29/18 00:29 Dextrose (Dextrose 50%) 50 ml Q30M PRN IV Hypoglycemia 05/30/18 00:30 06/29/18 00:29 Heparin Sodium (Porcine) (Heparin 5000 units/ml) 5,000 units EVERY 12 HOURS SUBQ 05/30/18 21:00 06/29/18 20:59 06/02/18 08:33 Hydralazine HCl (Apresoline) 25 mg Q4H PRN ORAL bp over 160 syst 05/30/18 15:15 06/29/18 15:14 Insulin Aspart (NovoLOG) BEFORE MEALS AND HS SUBQ 05/30/18 06:30 06/29/18 06:29 06/02/18 12:39 Insulin Detemir (Levemir) 6 units TWICE A DAY SUBQ 05/30/18 09:00 06/29/18 08:59 06/02/18 08:34 Lansoprazole (Prevacid) 30 mg BID GT 05/30/18 18:00 06/29/18 17:59 06/02/18 08:32 Lisinopril (Zestril) 5 mg DAILY GT 05/31/18 09:00 06/29/18 08:59 06/02/18 08:32 Magnesium Hydroxide (Mom) 30 ml DAILYPRN PRN GT Constipation 05/29/18 23:45 06/28/18 23:44 Meropenem 1 gm/ Sodium Chloride 55 ml @ 110 mls/hr Q8HR IVPB 05/30/18 06:00 06/04/18 05:59 06/02/18 05:42 Olanzapine (ZyPREXA) 2.5 mg BEDTIME PRN ORAL agitation 05/30/18 22:00 06/29/18 21:59 Sitagliptin Phosphate (Januvia) 100 mg ACBREAKFAST GT 05/30/18 06:30 06/29/18 06:29 06/02/18 05:46 Sodium Hypochlorite (Dakin's Quarter Strength) 1 applic DAILY TOPIC 05/31/18 09:00 06/30/18 08:59 06/02/18 08:35 Yrn Buckley MD Jun 02, 2018 13:17
--- NOTE | 2018-06-02 14:32 | Nephrology Progress Note ---
Assessment/Plan Problem List: (1) UTI (urinary tract infection) (2) Proteinuria (3) Acute renal failure (4) Cachexia Assessment Pneumonia- Hypoxia - Renal failure- Proteinuria- Hypoalbuminemia Anemia- UTI- Cachexia , Malnutrition- PEG- HypoTension on presentation DM Plan labs OK respiratory support- Antibiotics Monitor renal parameters hold bp meds albumin bolus Dc Metformin per orders DC planning Subjective ROS Limited/Unobtainable: No Constitutional: Reports: malaise Objective Objective Last 24 Hour Vital Signs Date Time Temp Pulse Resp B/P (MAP) Pulse Ox O2 Delivery O2 Flow Rate FiO2 06/02/18 13:49 95 20 100 Nasal Cannula 2.0 28 06/02/18 13:42 97 20 99 Nasal Cannula 3.0 32 06/02/18 12:00 98.1 98 20 114/69 (84) 100 98.1 06/02/18 11:58 96 06/02/18 09:00 Nasal Cannula 3.0 06/02/18 08:32 111/66 06/02/18 08:00 97.9 101 22 111/66 (81) 96 97.9 06/02/18 07:43 98 06/02/18 07:17 92 20 100 Nasal Cannula 2.0 28 06/02/18 07:12 98 Nasal Cannula 3.0 32 06/02/18 07:12 Nasal Cannula 3.0 32 06/02/18 07:10 91 20 98 Nasal Cannula 3.0 32 06/02/18 04:00 88 06/02/18 04:00 97.3 95 18 117/69 (85) 100 97.3 06/02/18 01:21 99 20 100 Nasal Cannula 2.0 28 06/02/18 01:07 99 20 99 Nasal Cannula 2.0 28 06/02/18 00:00 96 06/02/18 00:00 98.1 70 18 130/70 (90) 98 98.1 06/01/18 21:11 97.9 98 18 125/73 (90) 97 97.9 06/01/18 21:00 Nasal Cannula 3.0 06/01/18 20:34 100 20 100 Nasal Cannula 2.0 28 06/01/18 20:23 Nasal Cannula 2.0 28 06/01/18 20:23 102 20 99 Nasal Cannula 2.0 28 06/01/18 20:22 99 Nasal Cannula 2.0 28 06/01/18 20:00 101 06/01/18 16:00 94 Intake and Output 06/01/18 06/02/18 19:00 07:00 Output Total 450 ml 1000 ml Balance -450 ml -1000 ml Output Urine Total 450 ml 1000 ml # Voids 1 # Bowel Movements 2 1 Laboratory Tests 06/02/18 05:35: White Blood Count 8.2, Red Blood Count 3.88L, Hemoglobin 10.2L, Hematocrit 32.9L , Mean Corpuscular Volume 85, Mean Corpuscular Hemoglobin 26.2L, Mean Corpuscular Hemoglobin Concent 30.8L, Red Cell Distribution Width 16.3H, Platelet Count 383, Mean Platelet Volume 7.9, Neutrophils (%) (Auto) 59.6, Lymphocytes (%) (Auto) 24.9, Monocytes (%) (Auto) 6.3, Eosinophils (%) (Auto) 7.7H, Basophils (%) (Auto) 1.5, Sodium Level 142, Potassium Level 4.5, Chloride Level 107, Carbon Dioxide Level 32, Anion Gap 3L, Blood Urea Nitrogen 31H, Creatinine 0.6, Estimat Glomerular Filtration Rate > 60, Glucose Level 167H, Calcium Level 9.2, Phosphorus Level 2.6, Magnesium Level 2.2, Total Bilirubin 0.1L, Aspartate Amino Transf (AST/SGOT) 19, Alanine Aminotransferase (ALT/SGPT) 22, Alkaline Phosphatase 132H, C-Reactive Protein, Quantitative 4.7H, Pro-B- Type Natriuretic Peptide 226H, Total Protein 9.2H, Albumin 2.5L, Globulin 6.7, Albumin/Globulin Ratio 0.4L Height (Feet): 5 Height (Inches): 8.00 Weight (Pounds): 150 General Appearance: no apparent distress Objective no change Chava Dwyer MD Jun 02, 2018 14:32
[2018-06-02 15:21] VITALS: BP 92/54
--- NOTE | 2018-06-02 15:39 | General Progress Note ---
Assessment/Plan Status: stable Assessment/Plan # Anemia of chronic disease -- prior w/u reviewed, likely multifactorial --> Hgb goal >7. Transfuse prn. --> anemia panel has been reviewed, ferritin 360, iron sat 13 --> no evidence of hemolysis --> Currently stable # Leukocytosis potentially related to PNA. --> Has improved/resolved. WBC is wnl --> Abx have been completed. --> Cont to monitor # Decubitus ulcer of left hip, stage 4 and right hip stage 3 --> seen in the past by Dr. Clark, in the past has undergone debridement in 03/2018 --> Surgery management is following. Appreciate recs. --> Apply Dakin's 1/4 strength packing .Loosely packed into wound .Apply Cavilon to Borders and cover with Biatain # PNA. Abx have been completed ---> 06/02 CXR shows improvement Appreciate consultation greatly! Subjective Date patient seen: Jun 02, 2018 ROS Limited/Unobtainable: Yes Hematologic/Lymphatic: Reports: anemia Allergies: Coded Allergies: CEFTRIAXONE (Verified Allergy, Unknown, 04/04/18) Subjective No acute events. Pt is clinically stable. DC planning. Objective Last 24 Hour Vital Signs Date Time Temp Pulse Resp B/P (MAP) Pulse Ox O2 Delivery O2 Flow Rate FiO2 06/02/18 15:21 98.2 100 20 92/54 (67) 97 98.2 06/02/18 13:49 95 20 100 Nasal Cannula 2.0 28 06/02/18 13:42 97 20 99 Nasal Cannula 3.0 32 06/02/18 12:00 98.1 98 20 114/69 (84) 100 98.1 06/02/18 11:58 96 06/02/18 09:00 Nasal Cannula 3.0 06/02/18 08:32 111/66 06/02/18 08:00 97.9 101 22 111/66 (81) 96 97.9 06/02/18 07:43 98 06/02/18 07:17 92 20 100 Nasal Cannula 2.0 28 06/02/18 07:12 98 Nasal Cannula 3.0 32 06/02/18 07:12 Nasal Cannula 3.0 32 06/02/18 07:10 91 20 98 Nasal Cannula 3.0 32 10/22/18 04:00 88 06/02/18 04:00 97.3 95 18 117/69 (85) 100 97.3 06/02/18 01:21 99 20 100 Nasal Cannula 2.0 28 06/02/18 01:07 99 20 99 Nasal Cannula 2.0 28 06/02/18 00:00 96 06/02/18 00:00 98.1 70 18 130/70 (90) 98 98.1 06/01/18 21:11 97.9 98 18 125/73 (90) 97 97.9 06/01/18 21:00 Nasal Cannula 3.0 06/01/18 20:34 100 20 100 Nasal Cannula 2.0 28 06/01/18 20:23 Nasal Cannula 2.0 28 06/01/18 20:23 102 20 99 Nasal Cannula 2.0 28 06/01/18 20:22 99 Nasal Cannula 2.0 28 06/01/18 20:00 101 06/01/18 16:00 94 Intake and Output 06/01/18 06/02/18 19:00 07:00 Output Total 450 ml 1000 ml Balance -450 ml -1000 ml Output Urine Total 450 ml 1000 ml # Voids 1 # Bowel Movements 2 1 Laboratory Tests 06/02/18 05:35: White Blood Count 8.2, Red Blood Count 3.88L, Hemoglobin 10.2L, Hematocrit 32.9L , Mean Corpuscular Volume 85, Mean Corpuscular Hemoglobin 26.2L, Mean Corpuscular Hemoglobin Concent 30.8L, Red Cell Distribution Width 16.3H, Platelet Count 383, Mean Platelet Volume 7.9, Neutrophils (%) (Auto) 59.6, Lymphocytes (%) (Auto) 24.9, Monocytes (%) (Auto) 6.3, Eosinophils (%) (Auto) 7.7H, Basophils (%) (Auto) 1.5, Sodium Level 142, Potassium Level 4.5, Chloride Level 107, Carbon Dioxide Level 32, Anion Gap 3L, Blood Urea Nitrogen 31H, Creatinine 0.6, Estimat Glomerular Filtration Rate > 60, Glucose Level 167H, Calcium Level 9.2, Phosphorus Level 2.6, Magnesium Level 2.2, Total Bilirubin 0.1L, Aspartate Amino Transf (AST/SGOT) 19, Alanine Aminotransferase (ALT/SGPT) 22, Alkaline Phosphatase 132H, C-Reactive Protein, Quantitative 4.7H, Pro-B- Type Natriuretic Peptide 226H, Total Protein 9.2H, Albumin 2.5L, Globulin 6.7, Albumin/Globulin Ratio 0.4L Height (Feet): 5 Height (Inches): 8.00 Weight (Pounds): 150 General Appearance: no apparent distress EENT: PERRL/EOMI Neck: normal alignment Cardiovascular: tachycardia Respiratory/Chest: no respiratory distress Abdomen: soft Nikolai Richards MD Jun 02, 2018 15:39
[2018-06-02] MEDS ORDERED: INVANZ1 G1 IVINF (15:54)
--- NOTE | 2018-06-02 17:13 | Infectious Diseases Prog Note ---
Assessment/Plan Assessment/Plan A; Sepsis Pneumonia with Proteus ESBL Dementia DM Pressure ulcers P; Agree with discharge with Invanz 1gram daily X 4 days Wound care Subjective ROS Limited/Unobtainable: Yes Allergies: Coded Allergies: CEFTRIAXONE (Verified Allergy, Unknown, 04/04/18) Objective Vital Signs Last 24 Hour Vital Signs Date Time Temp Pulse Resp B/P (MAP) Pulse Ox O2 Delivery O2 Flow Rate FiO2 06/02/18 16:00 99 06/02/18 15:21 98.2 100 20 92/54 (67) 97 98.2 06/02/18 13:49 95 20 100 Nasal Cannula 2.0 28 06/02/18 13:42 97 20 99 Nasal Cannula 3.0 32 06/02/18 12:00 98.1 98 20 114/69 (84) 100 98.1 06/02/18 11:58 96 06/02/18 09:00 Nasal Cannula 3.0 06/02/18 08:32 111/66 06/02/18 08:00 97.9 101 22 111/66 (81) 96 97.9 06/02/18 07:43 98 06/02/18 07:17 92 20 100 Nasal Cannula 2.0 28 06/02/18 07:12 98 Nasal Cannula 3.0 32 06/02/18 07:12 Nasal Cannula 3.0 32 06/02/18 07:10 91 20 98 Nasal Cannula 3.0 32 06/02/18 04:00 88 06/02/18 04:00 97.3 95 18 117/69 (85) 100 97.3 06/02/18 01:21 99 20 100 Nasal Cannula 2.0 28 06/02/18 01:07 99 20 99 Nasal Cannula 2.0 28 06/02/18 00:00 96 06/02/18 00:00 98.1 70 18 130/70 (90) 98 98.1 06/01/18 21:11 97.9 98 18 125/73 (90) 97 97.9 06/01/18 21:00 Nasal Cannula 3.0 06/01/18 20:34 100 20 100 Nasal Cannula 2.0 28 06/01/18 20:23 Nasal Cannula 2.0 28 06/01/18 20:23 102 20 99 Nasal Cannula 2.0 28 06/01/18 20:22 99 Nasal Cannula 2.0 28 06/01/18 20:00 101 Height (Feet): 5 Height (Inches): 8.00 Weight (Pounds): 150 General Appearance: no acute distress HEENT: mucous membranes moist Respiratory/Chest: lungs clear Cardiovascular: normal rate Abdomen: soft, non tender, other - GT feeding Extremities: no edema Neurologic/Psychiatric: unresponsiveness Microbiology Date/Time Source Procedure Growth Status 06/01/18 01:00 Sputum Induced Gram Stain - Final Resulted 06/01/18 01:00 Sputum Induced Sputum Culture - Preliminary Resulted 06/01/18 01:00 Rectum - Preliminary Resulted Laboratory Tests Test 06/02/18 05:35 White Blood Count 8.2 K/UL (4.8-10.8) Red Blood Count 3.88 M/UL (4.70-6.10) L Hemoglobin 10.2 G/DL (14.2-18.0) L Hematocrit 32.9 % (42.0-52.0) L Mean Corpuscular Volume 85 FL (80-99) Mean Corpuscular Hemoglobin 26.2 PG (27.0-31.0) L Mean Corpuscular Hemoglobin Concent 30.8 G/DL (32.0-36.0) L Red Cell Distribution Width 16.3 % (11.6-14.8) H Platelet Count 383 K/UL (150-450) Mean Platelet Volume 7.9 FL (6.5-10.1) Neutrophils (%) (Auto) 59.6 % (45.0-75.0) Lymphocytes (%) (Auto) 24.9 % (20.0-45.0) Monocytes (%) (Auto) 6.3 % (1.0-10.0) Eosinophils (%) (Auto) 7.7 % (0.0-3.0) H Basophils (%) (Auto) 1.5 % (0.0-2.0) Sodium Level 142 MMOL/L (136-145) Potassium Level 4.5 MMOL/L (3.5-5.1) Chloride Level 107 MMOL/L (98-107) Carbon Dioxide Level 32 MMOL/L (21-32) Anion Gap 3 mmol/L (5-15) L Blood Urea Nitrogen 31 mg/dL (7-18) H Creatinine 0.6 MG/DL (0.55-1.30) Estimat Glomerular Filtration Rate > 60 mL/min (>60) Glucose Level 167 MG/DL (74-106) H Calcium Level 9.2 MG/DL (8.5-10.1) Phosphorus Level 2.6 MG/DL (2.5-4.9) Magnesium Level 2.2 MG/DL (1.8-2.4) Total Bilirubin 0.1 MG/DL (0.2-1.0) L Aspartate Amino Transf (AST/SGOT) 19 U/L (15-37) Alanine Aminotransferase (ALT/SGPT) 22 U/L (12-78) Alkaline Phosphatase 132 U/L (46-116) H C-Reactive Protein, Quantitative 4.7 mg/dL (0.00-0.90) H Pro-B-Type Natriuretic Peptide 226 pg/mL (0-125) H Total Protein 9.2 G/DL (6.4-8.2) H Albumin 2.5 G/DL (3.4-5.0) L Globulin 6.7 g/dL Albumin/Globulin Ratio 0.4 (1.0-2.7) L Current Medications Medications (Trade) Dose Ordered Sig/Briseida Route PRN Reason Start Time Stop Time Status Last Admin Dose Admin Acetaminophen (Tylenol) 650 mg EVERY 4 HOURS PRN GT Mild Pain/Temp > 100.5 05/29/18 23:45 06/28/18 23:44 05/31/18 11:43 Albuterol/ Ipratropium (Albuterol/ Ipratropium) 3 ml Q4H PRN HHN Shortness of Breath 05/29/18 23:45 06/03/18 23:44 Albuterol/ Ipratropium (Albuterol/ Ipratropium) 3 ml Q6HRT HHN 05/30/18 13:00 06/04/18 12:59 06/02/18 13:42 Ascorbic Acid (Vitamin C) 500 mg TWICE A DAY GT 05/30/18 18:00 06/29/18 17:59 06/02/18 08:32 Aspirin (ASA) 81 mg DAILY GT 05/30/18 09:00 06/29/18 08:59 06/02/18 08:32 Dextrose (Dextrose 50%) 25 ml Q30M PRN IV Hypoglycemia 05/30/18 00:30 06/29/18 00:29 Dextrose (Dextrose 50%) 50 ml Q30M PRN IV Hypoglycemia 05/30/18 00:30 06/29/18 00:29 Heparin Sodium (Porcine) (Heparin 5000 units/ml) 5,000 units EVERY 12 HOURS SUBQ 05/30/18 21:00 06/29/18 20:59 06/02/18 08:33 Hydralazine HCl (Apresoline) 25 mg Q4H PRN ORAL bp over 160 syst 05/30/18 15:15 06/29/18 15:14 Insulin Aspart (NovoLOG) BEFORE MEALS AND HS SUBQ 05/30/18 06:30 06/29/18 06:29 06/02/18 16:47 Insulin Detemir (Levemir) 6 units TWICE A DAY SUBQ 05/30/18 09:00 06/29/18 08:59 06/02/18 08:34 Lansoprazole (Prevacid) 30 mg BID GT 05/30/18 18:00 06/29/18 17:59 06/02/18 08:32 Lisinopril (Zestril) 5 mg DAILY GT 05/31/18 09:00 06/29/18 08:59 06/02/18 08:32 Magnesium Hydroxide (Mom) 30 ml DAILYPRN PRN GT Constipation 05/29/18 23:45 06/28/18 23:44 Meropenem 1 gm/ Sodium Chloride 55 ml @ 110 mls/hr Q8HR IVPB 05/30/18 06:00 06/04/18 05:59 06/02/18 14:36 Olanzapine (ZyPREXA) 2.5 mg BEDTIME PRN ORAL agitation 05/30/18 22:00 06/29/18 21:59 Sitagliptin Phosphate (Januvia) 100 mg ACBREAKFAST GT 05/30/18 06:30 06/29/18 06:29 06/02/18 05:46 Sodium Hypochlorite (Dakin's Quarter Strength) 1 applic DAILY TOPIC 05/31/18 09:00 06/30/18 08:59 06/02/18 08:35 Herson Palmer MD Jun 02, 2018 17:13
[2018-06-02] MEDS ORDERED: Tubing IV Secondary IV ONE (17:30)
[2018-06-02] MEDS ORDERED: NS 275ml ONE (17:30)
--- NOTE | 2018-06-02 23:35 | General Progress Note ---
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 donepezil Zyprexa prn Subjective Date patient seen: Jun 02, 2018 Neurologic/Psychiatric: Reports: anxiety, depressed Allergies: Coded Allergies: CEFTRIAXONE (Verified Allergy, Unknown, 04/04/18) Objective Last 24 Hour Vital Signs Date Time Temp Pulse Resp B/P (MAP) Pulse Ox O2 Delivery O2 Flow Rate FiO2 06/02/18 16:00 99 06/02/18 15:21 98.2 100 20 92/54 (67) 97 98.2 06/02/18 13:49 95 20 100 Nasal Cannula 2.0 28 06/02/18 13:42 97 20 99 Nasal Cannula 3.0 32 06/02/18 12:00 98.1 98 20 114/69 (84) 100 98.1 06/02/18 11:58 96 06/02/18 09:00 Nasal Cannula 3.0 06/02/18 08:32 111/66 06/02/18 08:00 97.9 101 22 111/66 (81) 96 97.9 06/02/18 07:43 98 06/02/18 07:17 92 20 100 Nasal Cannula 2.0 28 06/02/18 07:12 98 Nasal Cannula 3.0 32 06/02/18 07:12 Nasal Cannula 3.0 32 06/02/18 07:10 91 20 98 Nasal Cannula 3.0 32 06/02/18 04:00 88 06/02/18 04:00 97.3 95 18 117/69 (85) 100 97.3 06/02/18 01:21 99 20 100 Nasal Cannula 2.0 28 06/02/18 01:07 99 20 99 Nasal Cannula 2.0 28 06/02/18 00:00 96 06/02/18 00:00 98.1 70 18 130/70 (90) 98 98.1 Intake and Output 06/01/18 06/02/18 18:59 06:59 Output Total 450 ml 1000 ml Balance -450 ml -1000 ml Output Urine Total 450 ml 1000 ml # Voids 1 # Bowel Movements 2 1 Laboratory Tests 06/02/18 05:35: White Blood Count 8.2, Red Blood Count 3.88L, Hemoglobin 10.2L, Hematocrit 32.9L , Mean Corpuscular Volume 85, Mean Corpuscular Hemoglobin 26.2L, Mean Corpuscular Hemoglobin Concent 30.8L, Red Cell Distribution Width 16.3H, Platelet Count 383, Mean Platelet Volume 7.9, Neutrophils (%) (Auto) 59.6, Lymphocytes (%) (Auto) 24.9, Monocytes (%) (Auto) 6.3, Eosinophils (%) (Auto) 7.7H, Basophils (%) (Auto) 1.5, Sodium Level 142, Potassium Level 4.5, Chloride Level 107, Carbon Dioxide Level 32, Anion Gap 3L, Blood Urea Nitrogen 31H, Creatinine 0.6, Estimat Glomerular Filtration Rate > 60, Glucose Level 167H, Calcium Level 9.2, Phosphorus Level 2.6, Magnesium Level 2.2, Total Bilirubin 0.1L, Aspartate Amino Transf (AST/SGOT) 19, Alanine Aminotransferase (ALT/SGPT) 22, Alkaline Phosphatase 132H, C-Reactive Protein, Quantitative 4.7H, Pro-B- Type Natriuretic Peptide 226H, Total Protein 9.2H, Albumin 2.5L, Globulin 6.7, Albumin/Globulin Ratio 0.4L Height (Feet): 5 Height (Inches): 8.00 Weight (Pounds): 150 General Appearance: no apparent distress, alert, agitated Shawn Meza MD Jun 02, 2018 23:35
--- NOTE | 2018-06-03 14:13 | Discharge Summary ---
Discharge Summary Discharge Summary _ DATE OF ADMISSION: 05/29/2018 DATE OF DISCHARGE: 06/02/2018 REASON FOR ADMISSION: 68 years old male with past medical history of diabetes mellitus, hypertension, CVA, dementia, dysphagia, G-tube, multiple decubitus ulcers, DNR/DNI status, [facility]. Patient noted to have increased sputum production. Daughter reported history of frequent pneumonia. At the facility patient had fever and productive cough for several days , no signs of respiratory distress. Patient by himself nonverbal and was unable to provide any information. Vital signs revealed tachycardia, hypotension ,fever. Patient required 2 L of supplemental oxygen via nasal cannula to maintain appropriate oxygenation. Laboratory workup revealed leukocytosis WBC 13.0. Evidence of anemia with hemoglobin 10.2 ,hematocrit 33.9. Stable electrolytes. BUN 54, creatinine 0.8. Lactic acid 1.6. Troponin negative. Pro BNP - 277.. EKG revealed normal sinus rhythm, no ectopy , no PVC. Chest x-ray revealed bilateral consolidations. Patient admitted with diagnoses of sepsis, bilateral pneumonia , acute renal failure. CONSULTANTS: pulmonary Dr. Fish ID specialist Dr. Katalina Palmer division chief Dr. Dwyer ore dryer/oncologist Dr. Richards [facility] Dr. Clark [facility] COURSE: Patient started on the IV fluids and empiric antibiotics. Blood, urine , sputum culture were all negative. Stool for C. difficile was negative. Sputum culture from the [facility], revealed Proteus ESBL. Patient was on on IV antibiotics , optimized based on sensitivity as per ID specialist recommendations . Patient will need to complete antibiotics at the facility as per ID directions. Enforcement Manager closely followed. Supplemental oxygen provided as needed to keep pulse oximetry above 92%. Pulmonary toilet provided around the clock and as needed. Strict aspiration precautions maintained. Leukocytosis and fevers resolved. Mutuel Department Manager closely followed. Renal parameters electrolytes were closely monitored. Nephrotoxins avoided. Electrolytes replaced as needed. Prior to discharge BUN down to 31 creatinine 0.6. Metformin stopped. Patient also noted to have proteinuria. Blood sugar was managed with Januvia and sliding scale of insulin as needed. Blood rpessure was managed with RADHA inhibitor andf remained stable. DVT and GI prophylaxis provided . Patient was able to tolerate tube feeding. Nutritional recommendation implemented in plan of care. G-tube site care provided. Neckties Painter followed. Hemoglobin and hematocrit were closely monitored with goal to keep hemoglobin above 7. Anemia was likely multifactorial. No evidence of hemolysis. Psychiatrist closely followed and diagnosed patient with encephalopathy due to toxin and metabolic factor and dementia . Patient started on Aricept and Zyprexa. Wound care for present on admission decubitus ulcer left hip stage IV ,sacral stage IV and right hip stage III ,was provided as per surgeon's recommendation . Patient status post previous debridement . At this time no need for surgical intervention. Wound bed beefy-red , reposition at minimum every 2 hours. Etl Software Engineer recommendations implemented in plan of care to improve nutritional status and aid in wound healing. Follow-up chest x-ray revealed improvement in interstitial disease , compared to the last exam. Patient clinically improved and was stable for [facility] for [facility] of care. 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 DISCHARGE INSTRUCTIONS: [facility]. Follow up with medical doctor at the facility. I have been assigned to dictate discharge summary for this account. I was not involved in the patient's management. Rena Machuca NP Jun 03, 2018 14:13
--- NOTE | 2018-06-03 19:45 | Cardiology Report ---
APPROVED REPORT EKG Measurement Heart [id number] NM [id number] [id number] Sinus tachycardia Otherwise normal ECG
== END 2018-06-02 17:31 | DRG 871 ==
LOC: EDBD 19:14 → EMR 19:38 → 2E 19:50 → EDBEDREQ 21:40
DX: A41.9 Sepsis, unspecified organism (principal); L89.154 Pressure ulcer of sacral region, stage 4; L89.224 Pressure ulcer of left hip, stage 4; L89.213 Pressure ulcer of right hip, stage 3; J15.6 Pneumonia due to other Gram-negative bacteria; G92 Toxic encephalopathy; J96.22 Acute and chronic respiratory failure with hypercapnia; J96.21 Acute and chronic respiratory failure with hypoxia; N17.9 Acute kidney failure, unspecified; E46 Unspecified protein-calorie malnutrition; Z43.1 Encounter for attention to gastrostomy; R64 Cachexia; Z88.8 Allergy status to other drugs, medicaments and biological substances; F03.90 Unspecified dementia, unspecified severity, without behavioral disturbance, psychotic disturbance, mood disturbance, and anxiety; E11.9 Type 2 diabetes mellitus without complications; Z16.12 Extended spectrum beta lactamase (ESBL) resistance; D63.8 Anemia in other chronic diseases classified elsewhere; I10 Essential (primary) hypertension; I25.10 Atherosclerotic heart disease of native coronary artery without angina pectoris; R13.10 Dysphagia, unspecified; Z86.73 Personal history of transient ischemic attack (TIA), and cerebral infarction without residual deficits; Z79.4 Long term (current) use of insulin; Z66 Do not resuscitate
CPT/HCPCS: 36415; 36600; 71045; 80053; 81003; 82550; 82553; 82728; 82803; 82962; 83540; 83550; 83605; 83735; 83880; 84100; 84484; 85025; 85651; 86140; 87040; 87070; 87081; 87086; 87181; 87205; 87324; 93005; 94640; 94664; 94760; 96361; 96374; 99285; J1815; J7620; S5561

== ENCOUNTER 2018-06-16 13:47 | Inpatient (IN) | payer MEDICARE, MEDICAID ==
[~2018-06-16] VITALS: Ht 167.6 cm; Wt 67.6 kg
[~2018-06-16 13:47] MED LIST changes: +AMLODIPINE BESY10 MG GT; +ASPIR 8181 MG GT; +BACTRIM 400-801 EACH GT; +DOXYCYCLINE HYC50 M2 GT; +INVANZ1 G1 IVINF; +JANUVIA25 MG GT; +LISINOPRIL2.5 MG GT; +LORATADINE10 M1 GT; +METFORMIN HCL850 M1 GT
[2018-06-16] MEDS ORDERED: LEVEMIR FL100 UNIT/1 SUBQ (14:01)
[2018-06-16] MEDS ORDERED: JANUVIA25 MG ORAL (14:01)
[2018-06-16] MEDS ORDERED: FERROUS SULFAT325 MG ORAL (14:01)
[2018-06-16] MEDS ORDERED: ZINC SULFATE220 M1 ORAL (14:14)
--- NOTE | 2018-06-16 14:22 | Emergency Room Report ---
History of Present Illness General Chief Complaint: Fever Source: EMS Present Illness HPI Mr. Rivero is a 68 yo male wit hx of HCAP, sepsis, IDDM, dementia, CVA, BPH with chronic indwelling Beltran catheter who presents from [facility] with fever. Patient is nonverbal at baseline. Hx obtained from EMR and outside records. DNI/DNR Status. According to recent discharge summary, patient has multifocal pneumonia due to Proteus ESBL organism. PCP Dr. Wu Allergies: Coded Allergies: CEFTRIAXONE (Verified Allergy, Unknown, 04/04/18) Patient History Past Medical History: old chart reviewed Past Surgical History: unable to obtain Pertinent Family History: unable to obtain Reviewed Nursing Documentation: PMH: Agreed; PSxH: Agreed Nursing Documentation-PMH Past Medical History: No History, Except For Hx Cardiac Problems: No Hx Hypertension: Yes Hx Asthma: Yes Hx COPD: No Hx Diabetes: Yes Hx Cancer: No Hx Gastrointestinal Problems: Yes Hx Dialysis: No Hx Neurological Problems: Yes Hx Cerebrovascular Accident: Yes Hx Dementia: Yes Hx Seizures: No Review of Systems All Other Systems: limited - nonverbal status Physical Exam Vital Signs Date Time Temp Pulse Resp B/P (MAP) Pulse Ox O2 Delivery O2 Flow Rate FiO2 06/16/18 13:46 98.4 103 20 106/70 93 Nasal Cannula 2.0 Sp02 EP Interpretation: reviewed, normal General Appearance: no apparent distress, alert, GCS 15, non-toxic, cachetic, lethargic, other, Chronically Ill Head: normocephalic, atraumatic Eyes: bilateral eye normal inspection, bilateral eye PERRL ENT: no angioedema, dry mucus membranes, other - no tonsillar exudate Neck: normal inspection, supple/symm/no masses Respiratory: crackles, rales, rhonchi Cardiovascular #1: regular rate, rhythm, no edema, no gallop, no JVD, no murmur Cardiovascular #2: 2+ carotid (R), 2+ carotid (L), 2+ radial (R), 2+ radial (L) Gastrointestinal: normal bowel sounds, non tender, soft, non-distended, no guarding, no rebound, other - feeding tube in place with clean bandage Genitourinary: normal inspection, other - catheter in place Neurologic: other Psychiatric: other - does not respond to voice Skin: normal color Procedures Critical Care Time Critical Care Time 35 minutes of critical care time excluding procedures were used in the care of the patient. I reviewed labs and imaging. I reviewed previous electronic medical record. Patient required multiple reassessments. Medical Decision Making Diagnostic Impression: Primary Impression: HCAP (healthcare-associated pneumonia) ER Course Mr. Rivero presents with fever and ronchi on exam. I reviewed labs and CXR, worsening opacities. WBC 8 lactic acid 2.00, Mr. Rivero was recently discharged with Invanz therapy according to EMR documentation. Abx initiated in ED: meropenem, levaquin, flagyl. Patient is at risk for aspiration with hx of dysphagia and tube feeding. Admitted to telemetry in fair condition by Dr. Wu Labs Test 06/16/18 14:09 06/16/18 15:37 White Blood Count 8.0 K/UL (4.8-10.8) Red Blood Count 3.52 M/UL (4.70-6.10) Hemoglobin 9.2 G/DL (14.2-18.0) Hematocrit 29.8 % (42.0-52.0) Mean Corpuscular Volume 85 FL (80-99) Mean Corpuscular Hemoglobin 26.2 PG (27.0-31.0) Mean Corpuscular Hemoglobin Concent 30.9 G/DL (32.0-36.0) Red Cell Distribution Width 16.3 % (11.6-14.8) Platelet Count 264 K/UL (150-450) Mean Platelet Volume 9.7 FL (6.5-10.1) Neutrophils (%) (Auto) 77.0 % (45.0-75.0) Lymphocytes (%) (Auto) 15.5 % (20.0-45.0) Monocytes (%) (Auto) 4.4 % (1.0-10.0) Eosinophils (%) (Auto) 2.2 % (0.0-3.0) Basophils (%) (Auto) 0.9 % (0.0-2.0) Urine Color Margo Urine Appearance Clear Urine pH 5 (4.5-8.0) Urine Specific [place] 1.015 (1.005-1.035) Urine Protein 3+ (NEGATIVE) Urine Glucose (UA) Negative (NEGATIVE) Urine Ketones 1+ (NEGATIVE) Urine Blood 2+ (NEGATIVE) Urine Nitrite Negative (NEGATIVE) Urine Bilirubin Negative (NEGATIVE) Urine Ictotest Negative (NEGATIVE) Urine Urobilinogen 1 MG/DL (0.0-1.0) Urine Leukocyte Esterase 2+ (NEGATIVE) Urine RBC 2-4 /HPF (0 - 0) Urine WBC 5-10 /HPF (0 - 0) Urine Squamous Epithelial Cells Occasional /LPF Urine Calcium Oxalate Crystals Occasional /LPF (NONE) Urine Bacteria Occasional /HPF (NONE) Urine Yeast Moderate /HPF (NONE) Sodium Level 140 MMOL/L (136-145) Potassium Level 4.2 MMOL/L (3.5-5.1) Chloride Level 105 MMOL/L (98-107) Carbon Dioxide Level 29 MMOL/L (21-32) Anion Gap 6 mmol/L (5-15) Blood Urea Nitrogen 39 mg/dL (7-18) Creatinine 0.7 MG/DL (0.55-1.30) Estimat Glomerular Filtration Rate > 60 mL/min (>60) Glucose Level 168 MG/DL (74-106) Lactic Acid Level 2.00 mmol/L (0.4-2.0) Calcium Level 8.9 MG/DL (8.5-10.1) Total Bilirubin 0.3 MG/DL (0.2-1.0) Aspartate Amino Transf (AST/SGOT) 29 U/L (15-37) Alanine Aminotransferase (ALT/SGPT) 20 U/L (12-78) Alkaline Phosphatase 179 U/L (46-116) Total Protein 9.7 G/DL (6.4-8.2) Albumin 2.0 G/DL (3.4-5.0) Globulin 7.7 g/dL Albumin/Globulin Ratio 0.3 (1.0-2.7) EKG Diagnostic Results EKG Time: 14:16 Rate: normal ST Segments: no acute changes Other Impression sinus tachycardia nl axis nl QT interval short CT interval no ST elevation no signs of ischemia Chest X-Ray Diagnostic Results Chest X-Ray Diagnostic Results : Chest X-Ray Ordered: Yes # of Views/Limited/Complete: 1 View PA Xray: Interpretation reviewed Impression: Other - opacities worsening Reevaluation Time: 16:01 Last Vital Signs Date Time Temp Pulse Resp B/P (MAP) Pulse Ox O2 Delivery O2 Flow Rate FiO2 06/16/18 13:46 98.4 103 20 106/70 93 Nasal Cannula 2.0 Status: unchanged Disposition: ADMITTED INPATIENT Condition: Stable Physician Consult: Chika Mabry MD Jun 16, 2018 14:22
[2018-06-16] MEDS ORDERED: Meropenem 1 GM in NS 55 ML IVPB ONE (14:30)
[2018-06-16 14:35] LABS: APPEARANCE,URINE CLEAR; BILIRUBIN, URINE NEGATIVE (NEGATIVE); COLOR,URINE AMBER; GLUCOSE, URINE (UA) NEGATIVE (NEGATIVE); KETONES,URINE 1+ (NEGATIVE); LEUKOCYTE ESTERASE ,URINE 2+ (NEGATIVE); NITRITE,URINE NEGATIVE (NEGATIVE); PH,URINE 5 (4.5-8.0); PROTEIN,URINE 3+ (NEGATIVE); UROBILINOGEN,URINE 1 MG/DL (0.0-1.0)
[2018-06-16 14:42] LABS: ANION GAP 6 mmol/L (5-15); BLOOD UREA NITROGEN 39 mg/dL (7-18); CALCIUM 8.9 MG/DL (8.5-10.1); CARBON DIOXIDE 29 MMOL/L (21-32); CHLORIDE 105 MMOL/L (98-107); CREATININE 0.7 MG/DL (0.55-1.30); POTASSIUM 4.2 MMOL/L (3.5-5.1); SODIUM 140 MMOL/L (136-145)
[2018-06-16 14:47] LABS: ALANINE AMINOTRANSFERASE 20 U/L (12-78); ALBUMIN/GLOBULIN RATIO 0.3 (1.0-2.7); ALKALINE PHOSPHATASE 179 U/L (46-116); ASPARTATE AMINO TRANSFERASE 29 U/L (15-37); BILIRUBIN,TOTAL 0.3 MG/DL (0.2-1.0)
[2018-06-16 14:49] LABS: BASOPHILS % (AUTO) 0.9 % (0.0-2.0); EOSINOPHILS % (AUTO) 2.2 % (0.0-3.0); HEMATOCRIT 29.8 % (42.0-52.0); HEMOGLOBIN 9.2 G/DL (14.2-18.0); LYMPHOCYTES % (AUTO) 15.5 % (20.0-45.0); MEAN CORPUSCULAR VOLUME 85 FL (80-99); MONOCYTES % (AUTO) 4.4 % (1.0-10.0); PLATELET COUNT 264 K/UL (150-450); RED BLOOD COUNT 3.52 M/UL (4.70-6.10); RED CELL DISTRIBUTION WIDTH 16.3 % (11.6-14.8)
--- NOTE | 2018-06-16 14:51 | Diagnostic Imaging Report ---
Indication: Dyspnea Comparison: 06/02/2018 A single view chest radiograph was obtained. Findings: Interstitial opacities are present bilaterally slightly worse compared to the last study. While cardiomegaly is present. IMPRESSION: Interval worsening interstitial edema
[2018-06-16 14:55] VITALS: BP 103/62
[2018-06-16] MEDS ORDERED: Meropenem 1gm vial ONE (16:07)
[2018-06-16] MEDS ORDERED: [UNRECOGNIZED DRUG - OTHER] MC (18:06)
[2018-06-16] MEDS ORDERED: POVIDONE IODIN TP (18:06)
[2018-06-16 20:00] VITALS: BP 101/62
[2018-06-16] MEDS: Donepezil 5mg Tab GT SCH (20:47)
[2018-06-16] MEDS ORDERED: NovoLOG Insulin Flexpen SUBQ SCH (21:00)
[2018-06-16] MEDS: NovoLOG Insulin Flexpen SUBQ SCH (23:43)
[2018-06-17] VITALS: BP 113/65
[2018-06-17 04:00] VITALS: BP 120/74
[2018-06-17] MEDS: NovoLOG Insulin Flexpen SUBQ SCH ×4 (05:37→23:42)
[2018-06-17 06:57] LABS: INR 1.1 (0.9-1.1)
[2018-06-17 07:14] LABS: BASOPHILS % (AUTO) 0.5 % (0.0-2.0); EOSINOPHILS % (AUTO) 3.9 % (0.0-3.0); HEMATOCRIT 29.2 % (42.0-52.0); HEMOGLOBIN 9.1 G/DL (14.2-18.0); LYMPHOCYTES % (AUTO) 13.6 % (20.0-45.0); MEAN CORPUSCULAR VOLUME 84 FL (80-99); MONOCYTES % (AUTO) 4.7 % (1.0-10.0); NEUTROPHILS % (AUTO) 77.4 % (45.0-75.0); PLATELET COUNT 271 K/UL (150-450); RED BLOOD COUNT 3.46 M/UL (4.70-6.10); RED CELL DISTRIBUTION WIDTH 16.2 % (11.6-14.8); WHITE BLOOD COUNT 6.4 K/UL (4.8-10.8)
[2018-06-17 07:17] LABS: ALANINE AMINOTRANSFERASE 27 U/L (12-78); ALBUMIN 2.1 G/DL (3.4-5.0); ALBUMIN/GLOBULIN RATIO 0.3 (1.0-2.7); ALKALINE PHOSPHATASE 123 U/L (46-116); ANION GAP 6 mmol/L (5-15); ASPARTATE AMINO TRANSFERASE 21 U/L (15-37); BILIRUBIN,TOTAL 0.3 MG/DL (0.2-1.0); BLOOD UREA NITROGEN 35 mg/dL (7-18); CALCIUM 9.4 MG/DL (8.5-10.1); CARBON DIOXIDE 32 MMOL/L (21-32); CHLORIDE 105 MMOL/L (98-107); CREATININE 0.7 MG/DL (0.55-1.30); POTASSIUM 4.2 MMOL/L (3.5-5.1); SODIUM 143 MMOL/L (136-145)
[2018-06-17 07:53] LABS: % IRON SATURATION 13 % (15-50); IRON 16 ug/dL (50-175); TOTAL IRON BINDING CAPACITY 127 ug/dL (250-450)
[2018-06-17 08:00] VITALS: BP 110/76
[2018-06-17] MEDS: Ascorbic Acid 500mg tab GT SCH ×2 (08:12→18:10)
[2018-06-17] MEDS: Aspirin Baby 81mg GT SCH (08:12)
[2018-06-17] MEDS: Zinc Sulfate 220mg cap GT SCH (08:13)
[2018-06-17] MEDS: Acetaminophen 650mg/20.3ml GT PRN ×2 (08:15→23:40)
[2018-06-17] MEDS: Meropenem 1 GM in NS 55 ML IVPB SCH ×2 (10:29→18:31)
[2018-06-17 12:00] VITALS: BP 100/59
--- NOTE | 2018-06-17 15:22 | Consultation ---
Consult Note Consult Note HPI Mr. Rivero is a 68 yo male wit hx of HCAP, sepsis, IDDM, dementia, CVA, BPH with chronic indwelling Beltran catheter who presents from [facility] with fever. Patient is nonverbal at baseline. Hx obtained from EMR and outside records. DNI/DNR Status. According to recent discharge summary, patient has multifocal pneumonia due to Proteus ESBL organism. PCP Dr. Wu Allergies: CEFTRIAXONE (Verified Allergy, Unknown, 04/04/18) Hx Hypertension: Yes Hx Diabetes: Yes Hx Gastrointestinal Problems: Yes Hx Neurological Problems: Yes Hx Cerebrovascular Accident: Yes Hx Dementia: Yes examined- data reviewed Assessment/Plan (1) UTI (urinary tract infection) / Pneumonia (2) Proteinuria (3) Azotemia (4) Cachexia (5) Anemia Pneumonia- Hypoxia - Renal failure- Proteinuria- Hypoalbuminemia Anemia- UTI- Cachexia , Malnutrition- PEG- HypoTension DM Plan labs OK respiratory support- Antibiotics Monitor renal parameters hold bp meds- parameters Hold Glucophage albumin bolus per orders Chava Dwyer MD Jun 17, 2018 15:21
--- NOTE | 2018-06-17 15:38 | Consultation ---
Consult Note Consult Note DATE OF CONSULTATION: 06/17/2018 PULMONARY CONSULTATION CONSULTING PHYSICIAN: Yrn Buckley M.D. REFERRING PHYSICIAN: Jamia Wu M.D. REASON FOR CONSULTATION: Pneumonia. HISTORY OF PRESENT ILLNESS: The patient is a 68-year-old male with a history of dementia, hypertension, prior CVA, TIA, G-tube dependent, who was actually admitted to [facility] in March and May of this year for similar complaints. At that time, the patient had extensive parenchymal infiltrates with some lower lobe predominant bronchiectasis and there was a plan for repeat scanning in the future, which unfortunately was not done. Nonetheless, the patient presented to the ER overnight with cough, congestion, and sputum production. His CXR looks worse. PAST MEDICAL HISTORY: 1. Dementia. 2. CVA. 3. Dysphagia, status post PEG. 4. Recurrent respiratory infections. 5. Chronic hypercapnia. 6. Diabetes. 7. CAD. 8. Hypertension. PAST SURGICAL HISTORY: Unknown. ALLERGIES: Rocephin. MEDICATIONS: Prior to admission, medications reviewed. SOCIAL HISTORY: He is a residential resident. No known tobacco, alcohol, or drug use. FAMILY HISTORY: Unknown and unobtainable. PHYSICAL EXAMINATION: Last 24 Hour Vital Signs Date Time Temp Pulse Resp B/P (MAP) Pulse Ox O2 Delivery O2 Flow Rate FiO2 06/17/18 12:00 113 06/17/18 12:00 97.6 113 26 100/59 (73) 94 06/17/18 09:00 Nasal Cannula 2.0 06/17/18 08:45 97.7 06/17/18 08:12 118 110/76 06/17/18 08:01 115 06/17/18 08:00 100.2 118 24 110/76 (87) 92 06/17/18 04:00 109 06/17/18 04:00 98.2 109 20 120/74 (89) 99 06/17/18 00:00 98.5 99 20 113/65 (81) 99 06/17/18 00:00 99 06/16/18 21:00 Nasal Cannula 2.0 06/16/18 20:00 97 06/16/18 20:00 97.3 97 20 101/62 (75) 95 06/16/18 18:50 Nasal Cannula 2.0 06/16/18 17:10 99.6 107 33 103/62 97 Nasal Cannula 2.0 GENERAL: He is a nonverbal male, in no acute distress HEENT: Normocephalic and atraumatic. Oropharynx is clear. NECK: Supple without lymphadenopathy. CHEST: Coarse bilateral rhonchi. HEART: Regular rhythm. ABDOMEN: Soft, nontender, nondistended. Feeding tube is noted. EXTREMITIES: No cyanosis, clubbing, or edema. LABORATORY AND DIAGNOSTIC DATA: Chest x-ray bilateral infiltrates. Laboratory Tests Test 06/16/18 15:37 06/17/18 05:50 06/17/18 05:55 Lactic Acid Level 1.90 mmol/L (0.66-2.22) White Blood Count 6.4 K/UL (4.8-10.8) Red Blood Count 3.46 M/UL (4.70-6.10) L Hemoglobin 9.1 G/DL (14.2-18.0) L Hematocrit 29.2 % (42.0-52.0) L Mean Corpuscular Volume 84 FL (80-99) Mean Corpuscular Hemoglobin 26.4 PG (27.0-31.0) L Mean Corpuscular Hemoglobin Concent 31.3 G/DL (32.0-36.0) L Red Cell Distribution Width 16.2 % (11.6-14.8) H Platelet Count 271 K/UL (150-450) Mean Platelet Volume 8.8 FL (6.5-10.1) Neutrophils (%) (Auto) 77.4 % (45.0-75.0) H Lymphocytes (%) (Auto) 13.6 % (20.0-45.0) L Monocytes (%) (Auto) 4.7 % (1.0-10.0) Eosinophils (%) (Auto) 3.9 % (0.0-3.0) H Basophils (%) (Auto) 0.5 % (0.0-2.0) Erythrocyte Sedimentation Rate 119 MM/HR (0-20) H Prothrombin Time 11.4 SEC (9.30-11.50) Prothromb Time International Ratio 1.1 (0.9-1.1) Activated Partial Thromboplast Time 31 SEC (23-33) Sodium Level 143 MMOL/L (136-145) Potassium Level 4.2 MMOL/L (3.5-5.1) Chloride Level 105 MMOL/L (98-107) Carbon Dioxide Level 32 MMOL/L (21-32) Anion Gap 6 mmol/L (5-15) Blood Urea Nitrogen 35 mg/dL (7-18) H Creatinine 0.7 MG/DL (0.55-1.30) Estimat Glomerular Filtration Rate > 60 mL/min (>60) Glucose Level 157 MG/DL (74-106) H Calcium Level 9.4 MG/DL (8.5-10.1) Iron Level 16 ug/dL (50-175) L Total Iron Binding Capacity 127 ug/dL (250-450) L Percent Iron Saturation 13 % (15-50) L Unsaturated Iron Binding 111 ug/dL (112-346) L Ferritin 1008 NG/ML (8-388) H Total Bilirubin 0.3 MG/DL (0.2-1.0) Aspartate Amino Transf (AST/SGOT) 21 U/L (15-37) Alanine Aminotransferase (ALT/SGPT) 27 U/L (12-78) Alkaline Phosphatase 123 U/L (46-116) H C-Reactive Protein, Quantitative 29.1 mg/dL (0.00-0.90) H Total Protein 9.0 G/DL (6.4-8.2) H Total Protein (PEP) Pending Albumin 2.1 G/DL (3.4-5.0) L Albumin (PEP) Pending Globulin 6.9 g/dL Globulin (PEP) Pending Albumin/Globulin Ratio Pending [id number] Pending [id number] Pending Beta Globulins Pending Beta Gamma Globulin Pending PEP Abnormal Protein Bands Pending Protein Electrophoresis Interpret Pending Pro-B-Type Natriuretic Peptide 207 pg/mL (0-125) H ASSESSMENT: The patient is a 68-year-old male residential resident with acute on chronic hypoxemic hypercapnic respiratory failure, bilateral infiltrates, likely recurrent healthcare-associated pneumonia, dementia, CVA, dysphagia, hypertension, and CAD. PROBLEM LIST: 1. Multifocal pneumonia, healthcare-associated pneumonia. 2. long-term resident. 3. Dementia/CVA. 4. Dysphagia. 5. Hypertension, CAD. 6. Protein albumin discordance. TREATMENT PLAN: 1. ABG 2. CT chest 3. Optimize pulmonary hygiene/mobilize as tolerated. 4. Titrate down FiO2 to keep saturations greater than 90%. 5. P.r.n. BiPAP. 6. Continue antibiotics (J LUIS) per ID, follow up cultures. 7. [id number] and p.r.n. bronchodilators. 8. Aspiration precautions, cautious tube feeds. 9. Monitor volumes and renal function. 10. Heparin subcutaneous for DVT prophylaxis. 11. DNR/DNI, continue discuss goals of care. 12. Given discordance between albumin and protein, I would consider evaluation for plasma cell disorder if that is within the goals of care. Dr. Wu, thank you for allowing me to assist in the care of your patient. If I may be of any assistance in the future, please do not hesitate to ask. Mignon Turcios Ashkan L. MD Jun 17, 2018 15:38
--- NOTE | 2018-06-17 15:38 | Consultation ---
History of Present Illness General Date patient seen: Jun 17, 2018 Chief Complaint: Fever Reason for Consultation: worsening wounds Present Illness HPI 68 year old male known to me from prior admissions. Was discharged safely last admission and with detailed wound care instructions and plan. since has been okay until prior to admission when noted to have worsening fevers and tachycardia. family states wounds worsening as well. was admitted for care and management of likely HAP. Surgery called to evaluate and assist with care. Patient seen, chart reviewed, patient examined. Allergies: Coded Allergies: CEFTRIAXONE (Verified Allergy, Unknown, 04/04/18) Medication History Scheduled Amlodipine Besylate* (Amlodipine Besylate*), 10 MG GT DAILY, (Reported) Arginine/Ascorbate Sod/Abigail AC (Arginaid Powder), 1 EACH GT BID, (Reported) Ascorbic Acid* (Vitamin C*), 500 MG GT BID, (Reported) Aspirin* (Aspir 81*), 81 MG GT DAILY, (Reported) Cranberry Extract (Cranberry Extract), 425 MG GT BID, (Reported) Donepezil HCl (Aricept), 10 MG GT BEDTIME, (Reported) Dutasteride (Avodart), 0.5 MG GT DAILY, (Reported) Ferrous Sulfate* (Ferrous Sulfate*), 325 MG ORAL TID, (Reported) Insulin Detemir (Levemir Flexpen), 6 UNITS SUBQ BID, (Reported) Loratadine (Loratadine), 10 MG GT DAILY, (Reported) Metformin Hcl* (Metformin Hcl*), 850 MG GT DAILY, (Reported) Multivitamin With Minerals (Multivitamins With Minerals*), 1 TAB GT DAILY, ( Reported) Povidone-Iodine (Povidone-Iodine), 1 APPLIC TP DAILY, (Reported) Sitagliptin* (Januvia*), 100 MG ORAL DAILY, (Reported) Zinc Sulfate (Zinc Sulfate*), 220 MG ORAL DAILY, (Reported) Scheduled PRN Acetaminophen* (Acetaminophen 325MG Tablet*), 650 MG GT Q4H PRN for wound care, (Reported) Ipratropium [place] 0.5MG/2.5ML (Ipratropium [place] 0.5MG/2.5ML), 0.5 MG HHN Q4HR PRN for Shortness of Breath, (Reported) Miscellaneous Medications Collagen, Hydrolysate (Bovine) (Collagen Hydrolysate), 100 GM MC, (Reported) Insulin Aspart* (Novolog*), 0 SUBQ, (Reported) Discontinued Medications Acetaminophen* (Tylenol Extra Strength*), 650 MG GT Q4HR PRN for Mild Pain/Temp > 100.5, (Reported) Discontinued Reason: Pt stopped taking med Acetaminophen* (Acetaminophen 325MG Tablet*), 650 MG GT Q4H PRN for Fever/ Headache/Mild Pain, (Reported) Discontinued Reason: Pt stopped taking med Collagenase Clostridium Hist. (Collagenase), 1 EACH MC, (Reported) Discontinued Reason: Prescription changed Doxycycline Hyclate (Doxycycline Hyclate), 100 MG GT, (Reported) Discontinued Reason: Pt stopped taking med Ertapenem (Invanz), 1 GM IVINF DAILY, (Reported) Discontinued Reason: Pt stopped taking med Insulin Glargine (Lantus), 31 SUBQ BEDTIME, (Reported) Discontinued Reason: Pt stopped taking med Lisinopril* (Lisinopril*), 5 MG GT DAILY, (Reported) Discontinued Reason: Pt stopped taking med Polyvinyl Alcohol (Liquitears), 1 DRP OP EVERY 4 HOURS PRN for Dry Eyes, ( Reported) Discontinued Reason: Prescription changed Silver Sulfadiazine (Silvadene), 20 GM TP, (Reported) Discontinued Reason: Pt stopped taking med Sulfamethoxazole/Trimethoprim (Bactrim 400-80 Mg Tablet*), 1 TAB GT TWICE A DAY, (Reported) Discontinued Reason: Pt stopped taking med Tamsulosin Hcl (Tamsulosin Hcl*), 0.4 MG GT BEDTIME, (Reported) Discontinued Reason: Pt stopped taking med Patient History Limited by: medical condition History Provided By: Medical Record, PMD Healthcare decision maker N Resuscitation status Do Not Resuscitate Advanced Directive on File Yes Past Medical/Surgical History Past Medical/Surgical History: (1) Acute renal failure (2) Decubitus skin ulcer (3) Proteinuria (4) UTI (urinary tract infection) (5) Diabetes mellitus out of control (6) PNA (pneumonia) (7) Sacral decubitus ulcer, stage IV (8) Decubitus ulcer of left hip, stage 4 (9) Decubitus ulcer of right hip, stage 3 (10) Cachexia (11) HCAP (healthcare-associated pneumonia) Review of Systems ROS Narrative cannot obtain given medical condition Physical Exam General Appearance: no apparent distress Lines, tubes and drains: peripheral, other HEENT: mucous membranes moist Neck: normal inspection Respiratory/Chest: no respiratory distress, decreased breath sounds, crackles/ rales Cardiovascular/Chest: regularly irregular, tachycardia Abdomen: soft, no organomegaly, no mass, feeding tube Genitourinary/Rectal: other Extremities: other Skin Exam: other Neurologic: unresponsiveness Last 24 Hour Vital Signs Date Time Temp Pulse Resp B/P (MAP) Pulse Ox O2 Delivery O2 Flow Rate FiO2 06/17/18 12:00 113 06/17/18 12:00 97.6 113 26 100/59 (73) 94 06/17/18 09:00 Nasal Cannula 2.0 06/17/18 08:45 97.7 06/17/18 08:12 118 110/76 06/17/18 08:01 115 06/17/18 08:00 100.2 118 24 110/76 (87) 92 06/17/18 04:00 109 06/17/18 04:00 98.2 109 20 120/74 (89) 99 06/17/18 00:00 98.5 99 20 113/65 (81) 99 06/17/18 00:00 99 06/16/18 21:00 Nasal Cannula 2.0 06/16/18 20:00 97 06/16/18 20:00 97.3 97 20 101/62 (75) 95 06/16/18 18:50 Nasal Cannula 2.0 06/16/18 17:10 99.6 107 33 103/62 97 Nasal Cannula 2.0 Intake and Output 06/16/18 06/17/18 19:00 07:00 Intake Total 570 ml Output Total 0 ml 1400 ml Balance 0 ml -830 ml Intake Free Water 120 ml Tube Feeding 450 ml Output Urine Total 0 ml 1400 ml # Bowel Movements 1 Laboratory Tests Test 06/16/18 15:37 06/17/18 05:50 06/17/18 05:55 Lactic Acid Level 1.90 mmol/L (0.66-2.22) White Blood Count 6.4 K/UL (4.8-10.8) Red Blood Count 3.46 M/UL (4.70-6.10) L Hemoglobin 9.1 G/DL (14.2-18.0) L Hematocrit 29.2 % (42.0-52.0) L Mean Corpuscular Volume 84 FL (80-99) Mean Corpuscular Hemoglobin 26.4 PG (27.0-31.0) L Mean Corpuscular Hemoglobin Concent 31.3 G/DL (32.0-36.0) L Red Cell Distribution Width 16.2 % (11.6-14.8) H Platelet Count 271 K/UL (150-450) Mean Platelet Volume 8.8 FL (6.5-10.1) Neutrophils (%) (Auto) 77.4 % (45.0-75.0) H Lymphocytes (%) (Auto) 13.6 % (20.0-45.0) L Monocytes (%) (Auto) 4.7 % (1.0-10.0) Eosinophils (%) (Auto) 3.9 % (0.0-3.0) H Basophils (%) (Auto) 0.5 % (0.0-2.0) Erythrocyte Sedimentation Rate 119 MM/HR (0-20) H Prothrombin Time 11.4 SEC (9.30-11.50) Prothromb Time International Ratio 1.1 (0.9-1.1) Activated Partial Thromboplast Time 31 SEC (23-33) Sodium Level 143 MMOL/L (136-145) Potassium Level 4.2 MMOL/L (3.5-5.1) Chloride Level 105 MMOL/L (98-107) Carbon Dioxide Level 32 MMOL/L (21-32) Anion Gap 6 mmol/L (5-15) Blood Urea Nitrogen 35 mg/dL (7-18) H Creatinine 0.7 MG/DL (0.55-1.30) Estimat Glomerular Filtration Rate > 60 mL/min (>60) Glucose Level 157 MG/DL (74-106) H Calcium Level 9.4 MG/DL (8.5-10.1) Iron Level 16 ug/dL (50-175) L Total Iron Binding Capacity 127 ug/dL (250-450) L Percent Iron Saturation 13 % (15-50) L Unsaturated Iron Binding 111 ug/dL (112-346) L Ferritin 1008 NG/ML (8-388) H Total Bilirubin 0.3 MG/DL (0.2-1.0) Aspartate Amino Transf (AST/SGOT) 21 U/L (15-37) Alanine Aminotransferase (ALT/SGPT) 27 U/L (12-78) Alkaline Phosphatase 123 U/L (46-116) H C-Reactive Protein, Quantitative 29.1 mg/dL (0.00-0.90) H Total Protein 9.0 G/DL (6.4-8.2) H Total Protein (PEP) Pending Albumin 2.1 G/DL (3.4-5.0) L Albumin (PEP) Pending Globulin 6.9 g/dL Globulin (PEP) Pending Albumin/Globulin Ratio Pending Ydzjk-0-Tizexrujk Pending [id number]-9-Ykjrbpzrb Pending Beta Globulins Pending Beta Gamma Globulin Pending PEP Abnormal Protein Bands Pending Protein Electrophoresis Interpret Pending Pro-B-Type Natriuretic Peptide 207 pg/mL (0-125) H Microbiology Date/Time Source Procedure Growth Status 06/16/18 23:00 Hip Left Gram Stain - Final Resulted 06/16/18 23:00 Hip Left Wound Culture Pending Resulted 06/16/18 23:00 Sacral Wound Gram Stain - Final Resulted 06/16/18 23:00 Sacral Wound Wound Culture Pending Resulted Height (Feet): 5 Height (Inches): 6.00 Weight (Pounds): 130 Medications Current Medications Medications (Trade) Dose Ordered Sig/Briseida Route PRN Reason Start Time Stop Time Status Last Admin Dose Admin Acetaminophen (Tylenol) 650 mg Q4H PRN GT Mild Pain/Temp > 100.5 06/17/18 07:00 07/17/18 06:59 06/17/18 08:15 Albumin Human 500 ml @ 0 mls/hr Q0M ONCE IV 06/17/18 15:30 06/17/18 15:31 UNV Ascorbic Acid (Vitamin C) 500 mg BID GT 06/17/18 09:00 07/17/18 08:59 06/17/18 08:12 Aspirin (ASA) 81 mg DAILY GT 06/17/18 09:00 07/17/18 08:59 06/17/18 08:12 Dextrose (Dextrose 50%) 25 ml Q30M PRN IV Hypoglycemia 06/16/18 18:45 07/16/18 18:44 Dextrose (Dextrose 50%) 50 ml Q30M PRN IV Hypoglycemia 06/16/18 18:45 07/16/18 18:44 Diltiazem HCl (Cardizem) 30 mg EVERY 8 HOURS GT 06/18/18 06:00 07/18/18 05:59 UNV Donepezil HCl (Aricept) 10 mg BEDTIME GT 06/16/18 21:00 07/16/18 20:59 06/16/18 20:47 Insulin Aspart (NovoLOG) Q6HR SUBQ 06/17/18 00:00 07/16/18 20:59 06/17/18 12:20 Lansoprazole (Prevacid) 30 mg BID GT 06/17/18 18:00 07/17/18 17:59 UNV Meropenem 1 gm/ Sodium Chloride 55 ml @ 110 mls/hr Q8H IVPB 06/17/18 10:00 06/22/18 09:59 06/17/18 10:29 Quetiapine Fumarate (SEROquel) 12.5 mg Q4H PRN ORAL For Anxiety 06/17/18 13:15 07/17/18 13:14 Sitagliptin Phosphate (Januvia) 100 mg DAILY GT 06/17/18 09:00 07/17/18 08:59 06/17/18 08:12 Zinc Sulfate (Zinc Sulfate) 220 mg DAILY GT 06/17/18 09:00 07/17/18 08:59 06/17/18 08:13 Assessment/Plan Problem List: (1) Decubitus skin ulcer ICD Codes: L89.90 - Pressure ulcer of unspecified site, unspecified stage SNOMED: 143331536 (2) Sacral decubitus ulcer, stage IV ICD Codes: L89.154 - Pressure ulcer of sacral region, stage 4 SNOMED: 780507451, 577554521 (3) Decubitus ulcer of left hip, stage 4 ICD Codes: L89.224 - Pressure ulcer of left hip, stage 4 SNOMED: 294873077, 707372537 (4) Decubitus ulcer of right hip, stage 3 ICD Codes: L89.213 - Pressure ulcer of right hip, stage 3 SNOMED: 802962950, 481190184 Assessment/Plan Full thickness pressure injury to Sacrum with undermining 10-1 by 1cm at 11o' clock, undermining 6-7 by 1.1 cm at 7o'clock. Wound bed granular -beefy red with 25% necrosis/sloth at base of wound. No odor noted .Small amt non-odorous brown/green tinged exudate. Periwound without erythema or induration. Full thickness pressure injury to L Hip with undermining 10-5 by 2cm at at 12o' clock. Wound bed beefy red with scant malodorous brown tinged exudate.Periwound without erythema or induration. Skin tear on lower extremity Resolving full thickness pressure injury to R hip. Wound bed viable .Edges flat and adherent to base of wound.Periwound with dark pigmentation with scarring. Tx.Plan: Apply hydrogel to wound bed after washing with saline. Gauze packing; Loosely packed into wound .Apply Cavilon to Borders and cover with Biatain Drsg Daily and prn. Was left hip wound with saline. apply therahoney followed by foam dressing Please Upgrade mattress to P200 Air Fluidized mattress. Reposition at minimum every 2hours or as tolerated. Apply Triad Paste to both Ischial regions and scrotum with each perineal care Cavilon wipes to both heels and malleoli and off-load with pillow. Will plan for debridement of wounds during admission Will discuss with nutrition team to optimize nutritional intake for better wound healing. Will likely apply wound VAC after debridement Shamar Clark Jun 17, 2018 15:38
[2018-06-17] MEDS ORDERED: Albuterol/Ipratropium 3ml neb HHN PRN (15:45)
[2018-06-17 16:00] VITALS: BP 116/66
--- NOTE | 2018-06-17 16:41 | Cardiology Report ---
APPROVED REPORT EKG Measurement Heart [id number] MI 110P9 [id number] Sinus rhythm with short MI Otherwise normal ECG
--- NOTE | 2018-06-17 19:00 | Consultation ---
DATE OF CONSULTATION: 06/17/2018 INFECTIOUS DISEASE CONSULTATION CONSULTING PHYSICIAN: Herson Palmer M.D. PRIMARY ATTENDING PHYSICIAN: Jamia Wu M.D. REASON FOR CONSULT: Pneumonia. HISTORY OF PRESENT ILLNESS: This is a 68-year-old male admitted from nursing facility because of fever. The patient had a temperature of 100.2. The patient had frequent admissions to the hospital because of pneumonia. He was in [facility] in March and May of 2018 with pneumonia. Last admission, the patient had ESBL in the wound and had vancomycin-resistant enterococcus colonization. PAST MEDICAL HISTORY: Significant for diabetes mellitus, dementia, hypertension, prostatic hypertrophy, pressure ulcers, anemia, and status post gastrostomy tube placement. SOCIAL HISTORY: Single. assisted resident. is Belinda, his daughter. CODE STATUS: DNR. REVIEW OF SYSTEMS: Unobtainable. PHYSICAL EXAMINATION: VITAL SIGNS: Temperature 97.7, T-max is 100.2. The patient was tachycardic. Heart rate is 118. Blood pressure is 110/76. GENERAL APPEARANCE: The patient seems to be thin. HEAD AND NECK: [place] conjunctiva. HEART: Tachycardic. LUNGS: Has bilateral rales and few rhonchi. ABDOMEN: Soft. G-tube in place. EXTREMITY: He has no edema. SKIN: He has stage IV sacral ulcer and stage III hip ulcer. Does not seem to be infected. LABORATORY AND DIAGNOSTIC DATA: WBC 6.4, hemoglobin 9.1, hematocrit 29.2, and platelets 271,000. Sodium 143, potassium 4.2, chloride 105, bicarb 32, BUN 35, creatinine 0.7, and glucose is 157. Lactic acid was 1.9. UA showed wbc of 5 to 10 and leukocyte esterase 2+. Urine culture for so far no growth. Chest x-ray showed increased interstitial edema. IMPRESSION: Pneumonia. The patient has a history of previous admission with pneumonia. May have healthcare-associated pneumonia. He is allergic to cephalexin, but tolerated meropenem in the past admission. Has stage IV sacral ulcer and stage III right hip ulcer that seems uninfected. He has advanced dementia with aphasia, hypertension, benign prostatic hypertrophy, and anemia. RECOMMENDATION: We will continue with meropenem. We will send the sputum culture. Case was discussed with the primary attending, Dr. Wu. At the end of my exam, I thank Dr. Wu for involving me in the care of this patient. Herson Palmer M.D. DR: VAUGHN JOB#: [id number] CC:
--- NOTE | 2018-06-17 19:15 | Consultation ---
DATE OF CONSULTATION: 06/17/2018 HEMATOLOGY/ONCOLOGY CONSULTATION CONSULTING PHYSICIAN: Nikolai Richards M.D. REQUESTING PHYSICIAN: Jamia Wu M.D. REASON FOR CONSULTATION: Evaluation of anemia and failure to thrive. IDENTIFYING DATA: Dear Dr. Wu: The patient is a pleasant 68-year-old male. I have seen multiple times in the past with history of decubitus ulceration stage IV of the left hip and stage III of the right hip, has been seen by Dr. Clark in the past, history of pneumonia. At this time, he presents to [facility], noted to have crackles, bilateral lung bases. Again, he has a history of hospital-acquired pneumonia, history of sepsis, insulin-dependent diabetes mellitus, history of dementia, history of Beltran catheter in place, history of G-tube, history of being nonverbal at baseline, multiple records obtained from the EMR. He is a DNR/DNI status. Noted to have multifocal pneumonia on this admission and on recent admission, did grow out Proteus ESBL and noted to have anemia. Therefore, hematology service was consulted for further evaluation and treatment. PAST MEDICAL HISTORY: As noted above. PAST SURGICAL HISTORY: Difficult to obtain. The patient is nonverbal. FAMILY HISTORY: Nonverbal. REVIEW OF SYSTEMS: Nonverbal. PHYSICAL EXAMINATION: VITAL SIGNS: Reviewed. GENERAL: The patient is cachectic, is contracted, lying in bed, bedbound, chronically ill, lethargic. PULMONARY: The patient does have 1 to 2+ crackles, bilateral lung bases. Nasal cannula in place. CARDIOVASCULAR: Regular rate. Again, crackles noted overlying heart sounds. ABDOMEN: Soft, nontender, and nondistended. Positive for G-tube. EXTREMITIES: No cyanosis, swelling. Lower extremities and upper extremities well contracted. SKIN: Hyperpigmentation of the upper and lower extremities noted. It was pretty much unchanged from the last time he was here about a month ago. LABORATORY AND DIAGNOSTIC DATA: His laboratories, WBC 8, hemoglobin 11.1, platelet count 221,000. INR 1.1. Chemistry reviewed BUN of 35, creatinine 0.7. Alkaline phosphatase 123. Total protein 9. Reviewed the patient's prior laboratories. Again, ESR 113. Reviewed serum protein electrophoresis on prior admission and reviewed from prior admission notes were noted. Imaging at this time, chest x-ray from 06/16/2018, showed interval worsening interstitial edema. ASSESSMENT AND RECOMMENDATIONS: 1. Anemia due to underlying chronic disease. ESR was 115 prior to admission. Closely monitor for improvement. The patient has ongoing anemia, likely related to underlying decubitus ulceration. In addition to being chronically ill, bedbound, and hemoglobin , I have ordered for another ferritin as well as iron panel and okay to continue aspirin. ESR is pending as well. 2. Hyperproteinemia. is pending. I have ordered for serum protein electrophoresis. Results are pending at this time. Total protein of 9, albumin of 2.1. Again, has been ordered. 3. Hospital-acquired pneumonia. He is on broad-spectrum antibiotics. Given nasal cannula. 4. Azotemia. Given fluids as needed. BUN of 35. 5. Stage IV ulcerations on the left and right side. Stage IV ulcerations with in place. 6. Dysphagia, status post PEG tube. 7. Febrile state. Add antibiotics as needed. 8. Incontinence with a Beltran catheter in place. Beltran catheter is in place. I appreciate the consultation. Nikolai Richards M.D. DR: LORENZO JOB#: [id number] CC:
[2018-06-17 20:00] VITALS: BP 120/72
--- NOTE | 2018-06-17 20:15 | Consultation ---
DATE OF CONSULTATION: 06/17/2018 HISTORY OF PRESENT ILLNESS: This is a 68-year-old male with a history of dementia, IDDM, sepsis, CVA, and BPH, who has been admitted to the hospital for fever. The patient is confused and not able to participate in the evaluation and answer any question. He is DNR/DNI. The patient has episodes of agitation. He is confused and has waxing and waning consciousness. PAST PSYCHIATRIC HISTORY: Dementia. He is on Aricept. PAST MEDICAL HISTORY: Includes acute renal failure, urinary tract infection, diabetic mellitus, cachexia, and HCAP. ALLERGIES: Ceftriaxone. SUBSTANCE ABUSE HISTORY: No known history of illicit drugs or alcohol. MENTAL STATUS EXAMINATION: The patient is confused and non-verbal. Mood is neutral to agitation. Affect is flat. Thought process, there is a paucity of thought content. Thought content, no suicidal or homicidal ideations. ASSESSMENT: [place] I Encephalopathy due to general medical condition. [place] II Deferred. [place] III As above. [place] IV Low. [place] V Global assessment of functioning is 10. PLAN: 1. The patient will be started on Seroquel p.r.n. 2. Provide the patient with reality oriented supportive therapy. Shawn Meza M.D. DR: RIMMA JOB#: [id number] CC:
[2018-06-17] MEDS: Albuterol/Ipratropium 3ml neb HHN SCH (20:58)
[2018-06-17] MEDS: Donepezil 5mg Tab GT SCH (21:42)
[2018-06-17] MEDS: Heparin 5000 units/ml inj SUBQ SCH (21:43)
[2018-06-18] VITALS: BP 117/72
[2018-06-18] MEDS: Albuterol/Ipratropium 3ml neb HHN SCH ×4 (01:37→20:12)
[2018-06-18] MEDS: Meropenem 1 GM in NS 55 ML IVPB SCH ×3 (02:26→18:09)
--- NOTE | 2018-06-18 03:15 | History and Physical Report ---
DATE OF ADMISSION: 06/16/2018 HISTORY OF PRESENT ILLNESS: The patient is nonverbal and cannot get any history from the patient. He does have fever of 101.6 at the group home. He is admitted for pneumonia and sepsis. The patient has also sacral decubitus. The patient has advanced dementia, nonverbal, and has also diabetes and BPH with a chronic indwelling Beltran catheter. He also has a G-tube. Cannot obtain any history from him, the patient is currently DNR. The patient is admitted for sepsis, pneumonia, as well as UTI. PAST MEDICAL HISTORY: Advanced dementia, hypertension, asthma, diabetes, GERD, history of CVA, iron deficiency anemia, and sacral decubitus ulcer. SURGICAL HISTORY: . MEDICATIONS: Amlodipine, vitamin C, aspirin, benazepril, ferrous sulfate, insulin, metformin, multivitamin, and Januvia. ALLERGIES: Ceftriaxone. FAMILY HISTORY: Unable to obtain. SOCIAL HISTORY: Unable to obtain. REVIEW OF SYSTEMS: Unable to obtain. PHYSICAL EXAMINATION: VITAL SIGNS: Temperature 97.6, pulse is 118, and blood pressure 110/76. HEENT: PERRLA. NECK: Supple. CHEST: Clear to auscultation. CARDIOVASCULAR: Tachycardic. GASTROINTESTINAL: G-tube site is intact. Positive bowel sounds. The patient has decubitus ulcer wounds. Please refer to the nursing notes for the detailed description. NEUROLOGIC: Nonverbal and bed-bound. LABORATORY DATA: WBC of 8, hemoglobin 9.2, and platelets of 264. Sodium 142, potassium 4.2, BUN of 35, creatinine 0.7, and glucose 167. ASSESSMENT: 1. Sepsis. 2. Pneumonia. 3. UTI. 4. Fever at the group home. 5. The patient has sacral wound as well. PLAN: I have asked Dr. Clark, Dr. Dwyer, Dr. Herson Palmer, and Dr. Buckley to see the patient for the management of the above-mentioned diagnoses and treatment. Also, the patient currently needs more protein to be given. The patient is severely malnourished and I have asked extensively with Dr. Clark regarding the wound and possible I and D . The patient also has a history of wound biopsy in the past. Antibiotics per Dr. Herson Palmer. Ali Mignon Wu DR: DALILA JOB#: [id number] CC:
[2018-06-18 04:00] VITALS: BP 105/60
[2018-06-18] MEDS: dilTIAZem HCl 30mg tab GT SCH ×3 (05:34→21:27)
[2018-06-18] MEDS: NovoLOG Insulin Flexpen SUBQ SCH ×4 (05:35→23:56)
--- NOTE | 2018-06-18 07:29 | General Progress Note ---
Assessment/Plan Assessment/Plan ASSESSMENT AND RECOMMENDATIONS: #. Anemia due to underlying chronic disease. ESR was 115 prior to admission. Closely monitor for improvement. The patient has ongoing anemia, likely related to underlying decubitus ulceration. In addition to being chronically ill, bedbound, and hemoglobin, ferritin is >1000 --> transfuse if hgb <7 --> presurgery given 1 dose of epogen for more rapid recovery --> rule out hemolysis #. Hyperproteinemia. Given albumin dissociation -> spep and upep have been ordered to evaluate for spike in m-spike --> if above elevated, consider immunoglobulin tests --> appreicate pulm recs #. Hospital-acquired pneumonia. He is on broad-spectrum antibiotics. Given nasal cannula. --> abx as per ID #. Azotemia. Given fluids as needed. BUN of 35. #. Stage IV ulcerations on the left and right side. Stage IV ulcerations --> Dr. Clark aware, following #. Dysphagia, status post PEG tube. #. Febrile state. Add antibiotics as needed. #. Incontinence with a Beltran catheter in place. Beltran catheter is in place. --> uro recs as needed I appreciate the consultation. Subjective Allergies: Coded Allergies: CEFTRIAXONE (Verified Allergy, Unknown, 04/04/18) Objective Last 24 Hour Vital Signs Date Time Temp Pulse Resp B/P (MAP) Pulse Ox O2 Delivery O2 Flow Rate FiO2 06/18/18 05:34 102 105/60 06/18/18 04:00 98.2 102 18 105/60 (75) 99 06/18/18 03:34 99 06/18/18 01:49 98 20 99 Nasal Cannula 2.0 28 06/18/18 01:37 95 20 96 Nasal Cannula 3.0 32 06/18/18 00:00 99.1 98 22 117/72 (87) 99 06/17/18 23:21 99 06/17/18 21:13 98 20 99 Nasal Cannula 2.0 28 06/17/18 21:00 Nasal Cannula 2.0 06/17/18 20:58 98 20 Nasal Cannula 3.0 32 06/17/18 20:58 98 20 99 Nasal Cannula 3.0 32 06/17/18 20:00 98.6 103 24 120/72 (88) 100 06/17/18 19:58 100 06/17/18 16:00 115 06/17/18 16:00 98.1 117 26 116/66 (83) 92 06/17/18 12:00 113 06/17/18 12:00 97.6 113 26 100/59 (73) 94 06/17/18 09:00 Nasal Cannula 2.0 06/17/18 08:45 97.7 06/17/18 08:12 118 110/76 06/17/18 08:01 115 06/17/18 08:00 100.2 118 24 110/76 (87) 92 Intake and Output 06/17/18 06/18/18 19:00 07:00 Intake Total 55 ml 815 ml Output Total 200 ml 600 ml Balance -145 ml 215 ml Intake Free Water 100 ml IV Total 55 ml Tube Feeding 55 ml 660 ml Output Urine Total 200 ml 600 ml # Bowel Movements 1 1 Laboratory Tests 06/17/18 16:25: Arterial Blood pH 7.382, Arterial Blood Partial Pressure CO2 52.4H, Arterial Blood Partial Pressure O2 70.7L, Arterial Blood HCO3 30.4H, Arterial Blood Oxygen Saturation 92.8L, Arterial Blood Base Excess 4.5H, Daryl Test Positive Height (Feet): 5 Height (Inches): 6.00 Weight (Pounds): 127 Objective GENERAL: He is a nonverbal male, in no acute distress, +++NC HEENT: Normocephalic and atraumatic. Oropharynx is clear. NECK: Supple without lymphadenopathy. CHEST: Coarse bilateral rhonchi. HEART: Regular rhythm. ABDOMEN: Soft, nontender, nondistended. Feeding tube is noted. EXTREMITIES: No cyanosis, clubbing, or edema. BACK: unstageable requiring debridement Nikolai Richards MD Jun 18, 2018 07:29
[2018-06-18 08:00] VITALS: BP 111/70
[2018-06-18] MEDS ORDERED: Epogen (for non ESRD use) SUBQ ONE (09:00)
[2018-06-18] MEDS: Aspirin Baby 81mg GT SCH (09:22)
[2018-06-18] MEDS: Ascorbic Acid 500mg tab GT SCH ×2 (09:23→18:09)
[2018-06-18] MEDS: Zinc Sulfate 220mg cap GT SCH (09:23)
[2018-06-18] MEDS: Heparin 5000 units/ml inj SUBQ SCH ×2 (09:24→21:29)
--- NOTE | 2018-06-18 10:50 | Diagnostic Imaging Report ---
Indication: Dyspnea and fever Technique: Continuous helical transaxial imaging of the chest was obtained from the thoracic inlet to the upper abdomen. No intravenous contrast was administered. Coronal 2-D reformats were also obtained. Total Dose length Product (DLP): 550.[address] Dose Index Volume (CTDIvol): 14.25 mGy Comparison: none Findings: Fairly extensive patchy reticular nodular densities are present throughout both upper and lower lung morrow. The study is significantly degraded by breathing motion. High-resolution imaging was not done but the interstitial opacities have a tree-in-bud appearance especially at the lung bases and within the lungs that are better evaluated. In addition the basilar aspects of both lungs show some atelectasis and possible airspace disease. There is bronchiectasis present involving the lower lobes posteriorly. No significant pleural effusion identified. The aorta is moderately calcified. Small nodes are seen in mediastinum. Gastrostomy tube is present. The balloon of the catheter is situated between the abdominal wall and the stomach wall. Not certain if this is actually within the stomach. Correlate clinically. The gallbladder is contracted and there is suggestion of calcification of the wall. Underlying stones are not excluded. Would consider possibility of a porcelain gallbladder. IMPRESSION: Abnormal reticular nodular opacification of the lungs bilaterally with tree-in-bud opacities suggestive of small airways and interstitial disease. This is a large differential diagnosis which includes tuberculosis, among other infections such as viral or fungal pneumonia/pneumonitis, connective tissue disorders, bronchiolitis and neoplasm including bronchoalveolar cell carcinoma and metastatic disease. Chronic lung disease involving the lower lobes with bronchiectasis. Posterior basilar atelectasis Query position of the gastrostomy with the balloon situated along the outer surface of the stomach wall. Suggestion of porcelain gallbladder. Underlying stones not excludable. The CT scanner at [facility] is accredited by the [employer] and the scans are performed using dose optimization techniques as appropriate to a performed exam including Automatic Exposure control.
[2018-06-18 12:00] VITALS: BP 106/66
--- NOTE | 2018-06-18 12:00 | General Progress Note ---
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 Status: unchanged Assessment/Plan Seroquel prn provided ro/st Subjective Date patient seen: Jun 18, 2018 Neurologic/Psychiatric: Reports: anxiety Allergies: Coded Allergies: CEFTRIAXONE (Verified Allergy, Unknown, 04/04/18) Subjective the pt is non-verbal has episodes of agitation Objective Last 24 Hour Vital Signs Date Time Temp Pulse Resp B/P (MAP) Pulse Ox O2 Delivery O2 Flow Rate FiO2 06/18/18 07:51 98 20 96 Nasal Cannula 3.0 32 06/18/18 07:38 95 22 98 Nasal Cannula 3.0 32 06/18/18 05:34 102 105/60 06/18/18 04:00 98.2 102 18 105/60 (75) 99 06/18/18 03:34 99 06/18/18 01:49 98 20 99 Nasal Cannula 2.0 28 06/18/18 01:37 95 20 96 Nasal Cannula 3.0 32 06/18/18 00:00 99.1 98 22 117/72 (87) 99 06/17/18 23:21 99 06/17/18 21:13 98 20 99 Nasal Cannula 2.0 28 06/17/18 21:00 Nasal Cannula 2.0 06/17/18 20:58 98 20 Nasal Cannula 3.0 32 06/17/18 20:58 98 20 99 Nasal Cannula 3.0 32 06/17/18 20:00 98.6 103 24 120/72 (88) 100 06/17/18 19:58 100 06/17/18 16:00 115 06/17/18 16:00 98.1 117 26 116/66 (83) 92 06/17/18 12:00 113 06/17/18 12:00 97.6 113 26 100/59 (73) 94 Intake and Output 06/17/18 06/18/18 19:00 07:00 Intake Total 55 ml 815 ml Output Total 200 ml 600 ml Balance -145 ml 215 ml Intake Free Water 100 ml IV Total 55 ml Tube Feeding 55 ml 660 ml Output Urine Total 200 ml 600 ml # Bowel Movements 1 1 Laboratory Tests 06/17/18 16:25: Arterial Blood pH 7.382, Arterial Blood Partial Pressure CO2 52.4H, Arterial Blood Partial Pressure O2 70.7L, Arterial Blood HCO3 30.4H, Arterial Blood Oxygen Saturation 92.8L, Arterial Blood Base Excess 4.5H, Daryl Test Positive Height (Feet): 5 Height (Inches): 6.00 Weight (Pounds): 127 General Appearance: no apparent distress, lethargic, confused, agitated Shawn Meza MD Jun 18, 2018 12:00
--- NOTE | 2018-06-18 12:32 | Diagnostic Imaging Report ---
APPROVED REPORT CPT Code: 89335 Present Symptoms Shortness of breath BILATERAL: Imaging reveals a patent deep venous system bilaterally. There is no evidence of thrombus within the femoral, popliteal or tibial segments. The greater saphenous veins are also within normal limits. Doppler indicates normal spontaneous flow within these segments.
--- NOTE | 2018-06-18 12:48 | Nephrology Progress Note ---
Assessment/Plan Problem List: (1) Cachexia (2) Proteinuria (3) UTI (urinary tract infection) (4) Diabetes mellitus out of control Assessment (1) UTI (urinary tract infection) / Pneumonia (2) Proteinuria (3) Azotemia (4) Cachexia (5) Anemia Pneumonia- Hypoxia - Renal failure- Proteinuria- Hypoalbuminemia Anemia- UTI- Cachexia , Malnutrition- PEG- HypoTension DM Plan Plan labs OK respiratory support- Antibiotics Monitor renal parameters hold bp meds- parameters Hold Glucophage albumin bolus per orders Subjective ROS Limited/Unobtainable: No Constitutional: Reports: malaise, weakness Objective Objective Last 24 Hour Vital Signs Date Time Temp Pulse Resp B/P (MAP) Pulse Ox O2 Delivery O2 Flow Rate FiO2 06/18/18 07:51 98 20 96 Nasal Cannula 3.0 32 06/18/18 07:38 95 22 98 Nasal Cannula 3.0 32 06/18/18 05:34 102 105/60 06/18/18 04:00 98.2 102 18 105/60 (75) 99 06/18/18 03:34 99 06/18/18 01:49 98 20 99 Nasal Cannula 2.0 28 06/18/18 01:37 95 20 96 Nasal Cannula 3.0 32 06/18/18 00:00 99.1 98 22 117/72 (87) 99 06/17/18 23:21 99 06/17/18 21:13 98 20 99 Nasal Cannula 2.0 28 06/17/18 21:00 Nasal Cannula 2.0 06/17/18 20:58 98 20 Nasal Cannula 3.0 32 06/17/18 20:58 98 20 99 Nasal Cannula 3.0 32 06/17/18 20:00 98.6 103 24 120/72 (88) 100 06/17/18 19:58 100 06/17/18 16:00 115 06/17/18 16:00 98.1 117 26 116/66 (83) 92 Intake and Output 06/17/18 06/18/18 19:00 07:00 Intake Total 55 ml 815 ml Output Total 200 ml 600 ml Balance -145 ml 215 ml Intake Free Water 100 ml IV Total 55 ml Tube Feeding 55 ml 660 ml Output Urine Total 200 ml 600 ml # Bowel Movements 1 1 Laboratory Tests 06/17/18 16:25: Arterial Blood pH 7.382, Arterial Blood Partial Pressure CO2 52.4H, Arterial Blood Partial Pressure O2 70.7L, Arterial Blood HCO3 30.4H, Arterial Blood Oxygen Saturation 92.8L, Arterial Blood Base Excess 4.5H, Daryl Test Positive Height (Feet): 5 Height (Inches): 6.00 Weight (Pounds): 127 General Appearance: no apparent distress, lethargic Cardiovascular: tachycardia Respiratory/Chest: decreased breath sounds Abdomen: soft Chava Dwyer MD Jun 18, 2018 12:48
--- NOTE | 2018-06-18 13:43 | Pulmonology Progress Note ---
Assessment/Plan Assessment/Plan ASSESSMENT: The patient is a 68-year-old male [facility] resident with acute on chronic hypoxemic hypercapnic respiratory failure, bilateral infiltrates, likely recurrent healthcare-associated pneumonia, dementia, CVA, dysphagia, hypertension, and CAD. CT of the chest demonstrates e/o chronic lung disease with bilateral tree-in-bud opacities, reticulonodular infiltrates and bronchiectasis PROBLEM LIST: 1. Multifocal pneumonia, healthcare-associated pneumonia. 2. B reticulonodular infiltrates in a tree-in-bud appearance, suggestive of an infectious bronchiolitis, i.e. BISI, and bronchiectasis 3. shelter resident. 4. Dementia/CVA. 5. Dysphagia. 6. Hypertension, CAD. 7. Protein albumin discordance. TREATMENT PLAN: 1. I need to review the actually images from the CT of the chest myself. However, b reticulonodular infiltrates in a tree in bud appearance is usually indicative of an infectious bronchiolitis, i.e. BISI. We will send off serologies but ultimately he will likely require a bronchoscopy. Given that he is DNAR/DNI and that he would be unlikely to tolerate BISI therapy (@ least 18 months of REC) I feel the risks of bronchoscopy outweigh any potential benefits. 2. Abx (J LUIS) per ID 3. Optimize pulmonary hygiene/mobilize as tolerated. 4. Titrate down FiO2 to keep saturations greater than 90%. 5. P.r.n. BiPAP. 6. PRN and PRN HHN's 7. Mucomyst HHN's 8. Will need CPT 9. Aspiration precautions, cautious tube feeds. 10. Monitor volumes and renal function. 11. Heparin subcutaneous for DVT prophylaxis. 12. DNR/DNI, continue discuss goals of care. 13. F/U HEME-ONC recs Message left for patient's daughter Belinda Rivero Subjective Allergies: Coded Allergies: CEFTRIAXONE (Verified Allergy, Unknown, 04/04/18) Subjective AFVSS, O2 needs stable CT with scattered b T-i-B opacities and BXTSIS + cough + SOB no F/C Objective Last 24 Hour Vital Signs Date Time Temp Pulse Resp B/P (MAP) Pulse Ox O2 Delivery O2 Flow Rate FiO2 06/18/18 13:27 98 106/66 06/18/18 13:07 98 20 99 Nasal Cannula 3.0 32 06/18/18 12:00 99.6 96 20 106/66 (79) 97 06/18/18 12:00 90 06/18/18 08:00 97 06/18/18 08:00 98.4 97 20 111/70 (84) 97 06/18/18 07:51 98 20 96 Nasal Cannula 3.0 32 06/18/18 07:38 95 22 98 Nasal Cannula 3.0 32 06/18/18 05:34 102 105/60 06/18/18 04:00 98.2 102 18 105/60 (75) 99 06/18/18 03:34 99 06/18/18 01:49 98 20 99 Nasal Cannula 2.0 28 06/18/18 01:37 95 20 96 Nasal Cannula 3.0 32 06/18/18 00:00 99.1 98 22 117/72 (87) 99 06/17/18 23:21 99 06/17/18 21:13 98 20 99 Nasal Cannula 2.0 28 06/17/18 21:00 Nasal Cannula 2.0 06/17/18 20:58 98 20 Nasal Cannula 3.0 32 06/17/18 20:58 98 20 99 Nasal Cannula 3.0 32 06/17/18 20:00 98.6 103 24 120/72 (88) 100 06/17/18 19:58 100 06/17/18 16:00 115 06/17/18 16:00 98.1 117 26 116/66 (83) 92 Intake and Output 06/17/18 06/18/18 19:00 07:00 Intake Total 55 ml 815 ml Output Total 200 ml 600 ml Balance -145 ml 215 ml Intake Free Water 100 ml IV Total 55 ml Tube Feeding 55 ml 660 ml Output Urine Total 200 ml 600 ml # Bowel Movements 1 1 General Appearance: cachetic HEENT: normocephalic, atraumatic, anicteric, mucous membranes moist Respiratory/Chest: chest wall non-tender, rhonchi Cardiovascular: normal peripheral pulses, normal rate, regular rhythm Abdomen: normal bowel sounds, soft, non tender, no organomegaly, non distended , no mass, other - GT Extremities: no cyanosis, no clubbing, other Microbiology Date/Time Source Procedure Growth Status 06/16/18 14:15 Blood Blood Culture - Preliminary NO GROWTH AFTER 24 HOURS Resulted 06/16/18 14:09 Blood Blood Culture - Preliminary NO GROWTH AFTER 24 HOURS Resulted 06/17/18 21:00 Sputum Expectorated Gram Stain - Final Resulted 06/17/18 21:00 Sputum Expectorated Sputum Culture Pending Resulted 06/16/18 18:00 Nasal Nares MRSA Culture - Final NO METHICILLIN RESISTANT STAPH AUREUS... Complete 06/16/18 14:09 Urine,Clean Catch Urine Culture - Preliminary Resulted 06/16/18 23:00 Hip Left Gram Stain - Final Resulted 06/16/18 23:00 Hip Left Wound Culture - Preliminary Resulted 06/16/18 23:00 Sacral Wound Gram Stain - Final Resulted 06/16/18 23:00 Sacral Wound Wound Culture - Preliminary Resulted Laboratory Tests 06/17/18 16:25: Arterial Blood pH 7.382, Arterial Blood Partial Pressure CO2 52.4H, Arterial Blood Partial Pressure O2 70.7L, Arterial Blood HCO3 30.4H, Arterial Blood Oxygen Saturation 92.8L, Arterial Blood Base Excess 4.5H, Daryl Test Positive Current Medications Medications (Trade) Dose Ordered Sig/Briseida Route PRN Reason Start Time Stop Time Status Last Admin Dose Admin Acetaminophen (Tylenol) 650 mg Q4H PRN GT Mild Pain/Temp > 100.5 06/17/18 07:00 07/17/18 06:59 06/17/18 23:40 Albuterol/ Ipratropium (Albuterol/ Ipratropium) 3 ml Q4H PRN HHN Shortness of Breath 06/17/18 15:45 06/22/18 15:44 Albuterol/ Ipratropium (Albuterol/ Ipratropium) 3 ml Q6HRT HHN 06/17/18 19:00 06/22/18 18:59 06/18/18 13:07 Ascorbic Acid (Vitamin C) 500 mg BID GT 06/17/18 09:00 07/17/18 08:59 06/18/18 09:23 Aspirin (ASA) 81 mg DAILY GT 06/17/18 09:00 07/17/18 08:59 06/18/18 09:22 Dextrose (Dextrose 50%) 25 ml Q30M PRN IV Hypoglycemia 06/16/18 18:45 07/16/18 18:44 Dextrose (Dextrose 50%) 50 ml Q30M PRN IV Hypoglycemia 06/16/18 18:45 07/16/18 18:44 Diltiazem HCl (Cardizem) 30 mg EVERY 8 HOURS GT 06/18/18 06:00 07/18/18 05:59 06/18/18 13:27 Donepezil HCl (Aricept) 10 mg BEDTIME GT 06/16/18 21:00 07/16/18 20:59 06/17/18 21:42 Heparin Sodium (Porcine) (Heparin 5000 units/ml) 5,000 units EVERY 12 HOURS SUBQ 06/17/18 21:00 07/17/18 20:59 06/18/18 09:24 Insulin Aspart (NovoLOG) Q6HR SUBQ 06/17/18 00:00 07/16/18 20:59 06/18/18 12:11 Lansoprazole (Prevacid) 30 mg BID GT 06/17/18 18:00 07/17/18 17:59 06/18/18 09:23 Meropenem 1 gm/ Sodium Chloride 55 ml @ 110 mls/hr Q8H IVPB 06/17/18 10:00 06/22/18 09:59 06/18/18 09:35 Quetiapine Fumarate (SEROquel) 12.5 mg Q4H PRN ORAL For Anxiety 06/17/18 13:15 07/17/18 13:14 Sitagliptin Phosphate (Januvia) 100 mg DAILY GT 06/17/18 09:00 07/17/18 08:59 06/18/18 09:23 Zinc Sulfate (Zinc Sulfate) 220 mg DAILY GT 06/17/18 09:00 07/17/18 08:59 06/18/18 09:23 Yrn Buckley MD Jun 18, 2018 13:43
[2018-06-18 16:00] VITALS: BP 116/67
[2018-06-18] MEDS ORDERED: NS 275ml ONE (16:33)
--- NOTE | 2018-06-18 16:44 | General Surgery Progress Note ---
General Surgery-Progress Note Subjective Additional Comments no acute events. lungs improved today Objective Last 24 Hour Vital Signs Date Time Temp Pulse Resp B/P (MAP) Pulse Ox O2 Delivery O2 Flow Rate FiO2 06/18/18 13:27 98 106/66 06/18/18 13:17 92 21 99 Nasal Cannula 2.0 28 06/18/18 13:07 98 20 99 Nasal Cannula 3.0 32 06/18/18 12:00 99.6 96 20 106/66 (79) 97 06/18/18 12:00 90 06/18/18 08:00 97 06/18/18 08:00 98.4 97 20 111/70 (84) 97 06/18/18 07:51 98 20 96 Nasal Cannula 3.0 32 06/18/18 07:38 95 22 98 Nasal Cannula 3.0 32 06/18/18 05:34 102 105/60 06/18/18 04:00 98.2 102 18 105/60 (75) 99 06/18/18 03:34 99 06/18/18 01:49 98 20 99 Nasal Cannula 2.0 28 06/18/18 01:37 95 20 96 Nasal Cannula 3.0 32 06/18/18 00:00 99.1 98 22 117/72 (87) 99 06/17/18 23:21 99 06/17/18 21:13 98 20 99 Nasal Cannula 2.0 28 06/17/18 21:00 Nasal Cannula 2.0 06/17/18 20:58 98 20 Nasal Cannula 3.0 32 06/17/18 20:58 98 20 99 Nasal Cannula 3.0 32 06/17/18 20:00 98.6 103 24 120/72 (88) 100 06/17/18 19:58 100 I&O Intake and Output 06/17/18 06/18/18 19:00 07:00 Intake Total 55 ml 815 ml Output Total 200 ml 600 ml Balance -145 ml 215 ml Intake Free Water 100 ml IV Total 55 ml Tube Feeding 55 ml 660 ml Output Urine Total 200 ml 600 ml # Bowel Movements 1 1 Dressing: saturated Wound: other Drains: other Cardiovascular: RSR Respiratory: clear, decreased breath sounds Abdomen: soft, non-tender, present bowel sounds Extremities: other Plan Problems: (1) Decubitus skin ulcer (2) Sacral decubitus ulcer, stage IV Assessment & Plan: full thickness wound noted. discussed with daughter. recently had debridement at [facility]. still with 20-25% sloth and debris. daughter expressed that she would like wound cleaned as much as possible given how chronic it is. wound debrided at bedside. see ntoe wound VAC placed nutritional optimization (3) Decubitus ulcer of left hip, stage 4 (4) Decubitus ulcer of right hip, stage 3 Shamar Clark Jun 18, 2018 16:44
--- NOTE | 2018-06-18 16:47 | Infectious Diseases Prog Note ---
Assessment/Plan Assessment/Plan A; Pneumonia: CT scan tree in bud opacities Try to rule MAC & Fungal infection DM Dementia Pressure ulcer Anemia P; Continue Meropenem AFB X 3 No need for airborne isolation serum Coccidiomycosis antibody Urine Histoplasma antigen Subjective ROS Limited/Unobtainable: Yes Allergies: Coded Allergies: CEFTRIAXONE (Verified Allergy, Unknown, 04/04/18) Objective Vital Signs Last 24 Hour Vital Signs Date Time Temp Pulse Resp B/P (MAP) Pulse Ox O2 Delivery O2 Flow Rate FiO2 06/18/18 13:27 98 106/66 06/18/18 13:17 92 21 99 Nasal Cannula 2.0 28 06/18/18 13:07 98 20 99 Nasal Cannula 3.0 32 06/18/18 12:00 99.6 96 20 106/66 (79) 97 06/18/18 12:00 90 06/18/18 08:00 97 06/18/18 08:00 98.4 97 20 111/70 (84) 97 06/18/18 07:51 98 20 96 Nasal Cannula 3.0 32 06/18/18 07:38 95 22 98 Nasal Cannula 3.0 32 06/18/18 05:34 102 105/60 06/18/18 04:00 98.2 102 18 105/60 (75) 99 06/18/18 03:34 99 06/18/18 01:49 98 20 99 Nasal Cannula 2.0 28 06/18/18 01:37 95 20 96 Nasal Cannula 3.0 32 06/18/18 00:00 99.1 98 22 117/72 (87) 99 06/17/18 23:21 99 06/17/18 21:13 98 20 99 Nasal Cannula 2.0 28 06/17/18 21:00 Nasal Cannula 2.0 06/17/18 20:58 98 20 Nasal Cannula 3.0 32 06/17/18 20:58 98 20 99 Nasal Cannula 3.0 32 06/17/18 20:00 98.6 103 24 120/72 (88) 100 06/17/18 19:58 100 Height (Feet): 5 Height (Inches): 6.00 Weight (Pounds): 127 General Appearance: no acute distress HEENT: mucous membranes moist Respiratory/Chest: lungs clear Cardiovascular: normal rate Abdomen: soft, non tender Extremities: no edema, other - figer clubbing Neurologic/Psychiatric: aphasia Microbiology Date/Time Source Procedure Growth Status 06/16/18 14:15 Blood Blood Culture - Preliminary NO GROWTH AFTER 24 HOURS Resulted 06/16/18 14:09 Blood Blood Culture - Preliminary NO GROWTH AFTER 24 HOURS Resulted 06/17/18 21:00 Sputum Expectorated Gram Stain - Final Resulted 06/17/18 21:00 Sputum Expectorated Sputum Culture Pending Resulted 06/16/18 18:00 Nasal Nares MRSA Culture - Final NO METHICILLIN RESISTANT STAPH AUREUS... Complete 06/16/18 14:09 Urine,Clean Catch Urine Culture - Preliminary Resulted 06/16/18 23:00 Hip Left Gram Stain - Final Resulted 06/16/18 23:00 Hip Left Wound Culture - Preliminary Resulted 06/16/18 23:00 Sacral Wound Gram Stain - Final Resulted 06/16/18 23:00 Sacral Wound Wound Culture - Preliminary Resulted Current Medications Medications (Trade) Dose Ordered Sig/Briseida Route PRN Reason Start Time Stop Time Status Last Admin Dose Admin Acetaminophen (Tylenol) 650 mg Q4H PRN GT Mild Pain/Temp > 100.5 06/17/18 07:00 07/17/18 06:59 06/17/18 23:40 Acetylcysteine (Mucomyst) 100 mg TIDRT HHN 06/18/18 19:00 07/18/18 18:59 Albuterol/ Ipratropium (Albuterol/ Ipratropium) 3 ml Q4H PRN HHN Shortness of Breath 06/17/18 15:45 06/22/18 15:44 Albuterol/ Ipratropium (Albuterol/ Ipratropium) 3 ml Q6HRT HHN 06/17/18 19:00 06/22/18 18:59 06/18/18 13:07 Ascorbic Acid (Vitamin C) 500 mg BID GT 06/17/18 09:00 07/17/18 08:59 06/18/18 09:23 Aspirin (ASA) 81 mg DAILY GT 06/17/18 09:00 07/17/18 08:59 06/18/18 09:22 Dextrose (Dextrose 50%) 25 ml Q30M PRN IV Hypoglycemia 06/16/18 18:45 07/16/18 18:44 Dextrose (Dextrose 50%) 50 ml Q30M PRN IV Hypoglycemia 06/16/18 18:45 07/16/18 18:44 Diltiazem HCl (Cardizem) 30 mg EVERY 8 HOURS GT 06/18/18 06:00 07/18/18 05:59 06/18/18 13:27 Donepezil HCl (Aricept) 10 mg BEDTIME GT 06/16/18 21:00 07/16/18 20:59 06/17/18 21:42 Heparin Sodium (Porcine) (Heparin 5000 units/ml) 5,000 units EVERY 12 HOURS SUBQ 06/17/18 21:00 07/17/18 20:59 06/18/18 09:24 Insulin Aspart (NovoLOG) Q6HR SUBQ 06/17/18 00:00 07/16/18 20:59 06/18/18 12:11 Lansoprazole (Prevacid) 30 mg BID GT 06/17/18 18:00 07/17/18 17:59 06/18/18 09:23 Meropenem 1 gm/ Sodium Chloride 55 ml @ 110 mls/hr Q8H IVPB 06/17/18 10:00 06/22/18 09:59 06/18/18 09:35 Quetiapine Fumarate (SEROquel) 12.5 mg Q4H PRN ORAL For Anxiety 06/17/18 13:15 07/17/18 13:14 Sitagliptin Phosphate (Januvia) 100 mg DAILY GT 06/17/18 09:00 07/17/18 08:59 06/18/18 09:23 Zinc Sulfate (Zinc Sulfate) 220 mg DAILY GT 06/17/18 09:00 07/17/18 08:59 06/18/18 09:23 Herson Palmer MD Jun 18, 2018 16:47
--- NOTE | 2018-06-18 16:53 | General Progress Note ---
Assessment/Plan Problem List: (1) UTI (urinary tract infection) ICD Codes: N39.0 - Urinary tract infection, site not specified SNOMED: 81893803 (2) PNA (pneumonia) ICD Codes: J18.9 - Pneumonia, unspecified organism SNOMED: 434583358 (3) Sacral decubitus ulcer, stage IV ICD Codes: L89.154 - Pressure ulcer of sacral region, stage 4 SNOMED: 493294734, 203266644 (4) Cachexia ICD Codes: R64 - Cachexia SNOMED: 643668185 (5) Acute renal failure ICD Codes: N17.9 - Acute kidney failure, unspecified SNOMED: 66484806 (6) Decubitus skin ulcer ICD Codes: L89.90 - Pressure ulcer of unspecified site, unspecified stage SNOMED: 005956885 Status: progressing Assessment/Plan afebrile wound care per dr muhammad sacral decub pna and sepsis cachexia azotemia abx per id Subjective ROS Limited/Unobtainable: Yes Allergies: Coded Allergies: CEFTRIAXONE (Verified Allergy, Unknown, 04/04/18) Objective Last 24 Hour Vital Signs Date Time Temp Pulse Resp B/P (MAP) Pulse Ox O2 Delivery O2 Flow Rate FiO2 06/18/18 13:27 98 106/66 06/18/18 13:17 92 21 99 Nasal Cannula 2.0 28 06/18/18 13:07 98 20 99 Nasal Cannula 3.0 32 06/18/18 12:00 99.6 96 20 106/66 (79) 97 06/18/18 12:00 90 06/18/18 08:00 97 06/18/18 08:00 98.4 97 20 111/70 (84) 97 06/18/18 07:51 98 20 96 Nasal Cannula 3.0 32 06/18/18 07:38 95 22 98 Nasal Cannula 3.0 32 06/18/18 05:34 102 105/60 06/18/18 04:00 98.2 102 18 105/60 (75) 99 06/18/18 03:34 99 06/18/18 01:49 98 20 99 Nasal Cannula 2.0 28 06/18/18 01:37 95 20 96 Nasal Cannula 3.0 32 06/18/18 00:00 99.1 98 22 117/72 (87) 99 06/17/18 23:21 99 06/17/18 21:13 98 20 99 Nasal Cannula 2.0 28 06/17/18 21:00 Nasal Cannula 2.0 06/17/18 20:58 98 20 Nasal Cannula 3.0 32 06/17/18 20:58 98 20 99 Nasal Cannula 3.0 32 06/17/18 20:00 98.6 103 24 120/72 (88) 100 06/17/18 19:58 100 Intake and Output 06/17/18 06/18/18 19:00 07:00 Intake Total 55 ml 815 ml Output Total 200 ml 600 ml Balance -145 ml 215 ml Intake Free Water 100 ml IV Total 55 ml Tube Feeding 55 ml 660 ml Output Urine Total 200 ml 600 ml # Bowel Movements 1 1 Height (Feet): 5 Height (Inches): 6.00 Weight (Pounds): 127 General Appearance: lethargic, confused Cardiovascular: regular rhythm Respiratory/Chest: lungs clear Abdomen: soft Jamia Wu MD Jun 18, 2018 16:53
[2018-06-18 20:00] VITALS: BP 108/65
[2018-06-18] MEDS: Donepezil 5mg Tab GT SCH (21:27)
[2018-06-19] VITALS: BP 105/61
--- NOTE | 2018-06-19 00:17 | Operative Note - Dictated ---
DATE OF OPERATION: 06/18/2018 PREOPERATIVE DIAGNOSES: 1. Stage IV sacral decubitus ulcer with 20 to 25% loss and necrotic/fibrinous tissue. 2. Left hip stage IV decubitus ulcer. OPERATION PERFORMED: 1. Excisional debridement of 13 cm x 11 cm stage IV sacral decubitus ulcer with ostectomy. 2. Nonexcisional debridement of left hip, stage IV decubitus ulcer. ATTENDING SURGEON: Shamar Clark M.D. BIOMEDICAL FIELD SERVICE ENGINEER: None. ANESTHESIA: The patient is premedicated with pain medication. ESTIMATED BLOOD LOSS: Minimal. IV FLUIDS: See records. SPECIMENS: None. COMPLICATIONS: None. DRAINS: Wound VAC placed. WOUND CLASSIFICATION: Class 3. IV ANTIBIOTICS: The patient is on scheduled IV antibiotics. INDICATIONS FOR PROCEDURE: This is a 68-year-old male, well known to me from prior admissions, who presents with fevers, leukocytosis, and sepsis. Prior, the patient was noted to have multiple slowly healing decubitus ulcers and were managed nonoperatively during hospitalization prior. During this admission, contacted the patient's family member to discuss care and care plan, and the patient's daughter Belinda had expressed that the patient had debridement a few weeks back at [facility] of these decubitus ulcers, but has noted recently that they have worsened, and given his intermittent episodes of sepsis, had requested further debridement if necessary. Furthermore, she currently expressed that if there are alternatives to wound management, she would consider them. In discussing options with the patient's family member who was also the power of fitter and turner/next-to-kin, I expressed that the wounds were fairly clean, likely since last debridement and had some necessity for further care. The left hip wound did have a layer of biofilm, but fortunately did not need any excisional debridement and could be debrided with nonexcisional debridement. The sacral decubitus ulcer did have some exposed free-floating bone, requiring ostectomy of a small portion of the distal coccyx as well as 20 to 25% of necrotic/fibrinous debris, requiring excisional debridement. After wounds were cleansed, given their location, stage, and chronicity, recommended wound VAC placement for the remainder of the wound care. Furthermore, I discussed the patient's current medical condition, clinical status, and need for nutrition optimization, which is being managed as well. Consent was obtained from the daughter for the above proposed wound plan and procedures performed at the bedside on 06/18/2018 given the patient's medical condition. OPERATIVE NOTE: The patient was made comfortable at the bedside. The patient was placed in the right lateral decubitus position with all bony prominences well padded. Prior to procedure, the patient was given pain medication for premedication earlier. The patient was already on scheduled IV antibiotics. The patient was noted to be grossly soiling wounds and dressings given the incontinence. The patient was cleaned up and the wounds were evaluated. Wounds were measured and the left hip wound was noted to have fortunately no significant necrotic or fibrinous debris, but did have a layer of thin biofilm requiring nonexcisional debridement using gauze. Following this, the wound was cleansed with saline. In the sacral area, the wound was fairly clean, but 20% to 25% of it did have some necrotic tissue and fibrinous debris, requiring surgical debridement, using a #10 surgical scalpel and surgical scissors. This was taken down to do fresh back bleeding tissue. In the left inferior portion, there was an area near the coccyx that had free-floating bone where ostectomy was performed. Given this, there was a very small portion of broken bone identified and discarded. In excising some of the necrotic fibrinous tissue down to good back bleeding healthy tissue, there was bleeding identified and a 3-0 silk suture was used to obtain hemostasis. Following this, the wound was cleansed and decision was made to place a wound VAC. The wound VAC was placed bridging the sacral decubitus with the left hip decubitus to a bridge in the left anterior thigh/hip. Wound VAC was placed to suction at 125 mmHg with good seal. The patient tolerated the procedure well. Shamar Clark M.D. DR: POWER JOB#: [id number] CC: [email or web address]
[2018-06-19] MEDS: Albuterol/Ipratropium 3ml neb HHN SCH ×4 (01:33→21:05)
[2018-06-19] MEDS: Meropenem 1 GM in NS 55 ML IVPB SCH ×3 (02:01→18:13)
[2018-06-19 04:00] VITALS: BP 114/65
[2018-06-19] MEDS: dilTIAZem HCl 30mg tab GT SCH ×3 (05:42→21:07)
[2018-06-19] MEDS: NovoLOG Insulin Flexpen SUBQ SCH ×4 (05:46→23:24)
[2018-06-19 08:00] VITALS: BP 97/63
--- NOTE | 2018-06-19 09:57 | Nephrology Progress Note ---
Assessment/Plan Problem List: (1) Cachexia (2) Proteinuria (3) UTI (urinary tract infection) (4) Diabetes mellitus out of control Assessment (1) UTI (urinary tract infection) / Pneumonia (2) Proteinuria (3) Azotemia (4) Cachexia (5) Anemia Pneumonia- Hypoxia - Renal failure- Proteinuria- Hypoalbuminemia Anemia- UTI- Cachexia , Malnutrition- PEG- HypoTension DM Plan Plan no labs today- respiratory support- Antibiotics Monitor renal parameters hold bp meds- parameters Hold Glucophage albumin bolus per orders Subjective ROS Limited/Unobtainable: No Constitutional: Reports: malaise, weakness Objective Objective Last 24 Hour Vital Signs Date Time Temp Pulse Resp B/P (MAP) Pulse Ox O2 Delivery O2 Flow Rate FiO2 06/19/18 08:00 98.3 83 18 97/63 (74) 100 06/19/18 08:00 86 06/19/18 07:48 75 18 98 Nasal Cannula 3.0 32 06/19/18 07:38 82 22 98 Nasal Cannula 3.0 32 06/19/18 07:35 Nasal Cannula 3.0 32 06/19/18 07:34 98 Nasal Cannula 3.0 32 06/19/18 05:42 80 114/65 06/19/18 04:00 97.2 80 20 114/65 (81) 100 06/19/18 03:33 67 06/19/18 01:48 85 20 99 Nasal Cannula 3.0 32 06/19/18 01:33 88 20 98 Nasal Cannula 3.0 32 06/19/18 00:00 98.0 89 20 105/61 (76) 100 06/18/18 23:20 89 06/18/18 21:27 88 108/65 06/18/18 21:00 Nasal Cannula 2.0 06/18/18 20:27 88 20 99 Nasal Cannula 3.0 32 06/18/18 20:12 Nasal Cannula 3.0 32 06/18/18 20:12 75 20 97 Nasal Cannula 3.0 32 06/18/18 20:12 97 Nasal Cannula 3.0 32 06/18/18 20:00 99 06/18/18 20:00 97.4 100 20 108/65 (79) 98 06/18/18 16:00 103 06/18/18 16:00 98.7 101 20 116/67 (83) 97 06/18/18 13:27 98 106/66 06/18/18 13:17 92 21 99 Nasal Cannula 2.0 28 06/18/18 13:07 98 20 99 Nasal Cannula 3.0 32 06/18/18 12:00 99.6 96 20 106/66 (79) 97 06/18/18 12:00 90 Intake and Output 06/18/18 06/19/18 19:00 07:00 Intake Total 1140 ml 865 ml Output Total 700 ml 725 ml Balance 440 ml 140 ml Intake Free Water 260 ml 150 ml IV Total 220 ml 55 ml Tube Feeding 660 ml 660 ml Output Urine Total 700 ml 700 ml Drainage Total 25 ml # Bowel Movements 1 Laboratory Tests 06/18/18 17:15: Histoplasma Antigen [Pending] 06/19/18 07:30: Coccidioides Antibody (Comp Fix) [Pending] Height (Feet): 5 Height (Inches): 6.00 Weight (Pounds): 199 General Appearance: no apparent distress, lethargic Cardiovascular: other - variable Respiratory/Chest: decreased breath sounds Abdomen: soft Chava Dwyer MD Jun 19, 2018 09:56
[2018-06-19] MEDS: Ascorbic Acid 500mg tab GT SCH ×2 (10:02→18:13)
[2018-06-19] MEDS: Zinc Sulfate 220mg cap GT SCH (10:02)
[2018-06-19] MEDS: Aspirin Baby 81mg GT SCH (10:02)
[2018-06-19] MEDS: Heparin 5000 units/ml inj SUBQ SCH ×2 (10:03→21:04)
[2018-06-19 12:00] VITALS: BP 112/59
--- NOTE | 2018-06-19 12:36 | Infectious Diseases Prog Note ---
Assessment/Plan Assessment/Plan A; Pneumonia: CT scan tree in bud opacities Try to rule MAC & Fungal infection DM Dementia Pressure ulcer Anemia P; Continue Meropenem will f/u AFB X 3 No need for airborne isolation will f/u serum Coccidiomycosis antibody will f/u Urine Histoplasma antigen Subjective ROS Limited/Unobtainable: Yes Allergies: Coded Allergies: CEFTRIAXONE (Verified Allergy, Unknown, 04/04/18) Objective Vital Signs Last 24 Hour Vital Signs Date Time Temp Pulse Resp B/P (MAP) Pulse Ox O2 Delivery O2 Flow Rate FiO2 06/19/18 12:00 98.0 77 20 112/59 (76) 100 06/19/18 09:00 Nasal Cannula 2.0 06/19/18 08:00 98.3 83 18 97/63 (74) 100 06/19/18 08:00 86 06/19/18 07:48 75 18 98 Nasal Cannula 3.0 32 06/19/18 07:38 82 22 98 Nasal Cannula 3.0 32 06/19/18 07:35 Nasal Cannula 3.0 32 06/19/18 07:34 98 Nasal Cannula 3.0 32 06/19/18 05:42 80 114/65 06/19/18 04:00 97.2 80 20 114/65 (81) 100 06/19/18 03:33 67 06/19/18 01:48 85 20 99 Nasal Cannula 3.0 32 06/19/18 01:33 88 20 98 Nasal Cannula 3.0 32 06/19/18 00:00 98.0 89 20 105/61 (76) 100 06/18/18 23:20 89 06/18/18 21:27 88 108/65 06/18/18 21:00 Nasal Cannula 2.0 06/18/18 20:27 88 20 99 Nasal Cannula 3.0 32 06/18/18 20:12 Nasal Cannula 3.0 32 06/18/18 20:12 75 20 97 Nasal Cannula 3.0 32 06/18/18 20:12 97 Nasal Cannula 3.0 32 06/18/18 20:00 99 06/18/18 20:00 97.4 100 20 108/65 (79) 98 06/18/18 16:00 103 06/18/18 16:00 98.7 101 20 116/67 (83) 97 06/18/18 13:27 98 106/66 11/7/18 13:17 92 21 99 Nasal Cannula 2.0 28 06/18/18 13:07 98 20 99 Nasal Cannula 3.0 32 Height (Feet): 5 Height (Inches): 6.00 Weight (Pounds): 199 General Appearance: no acute distress HEENT: mucous membranes moist Respiratory/Chest: other - few rhonchi, O2 by nasal cannula Cardiovascular: normal rate Abdomen: soft, non tender, other - GT feeding Extremities: no edema Neurologic/Psychiatric: unresponsiveness Microbiology Date/Time Source Procedure Growth Status 06/16/18 14:15 Blood Blood Culture - Preliminary NO GROWTH AFTER 48 HOURS Resulted 06/16/18 14:09 Blood Blood Culture - Preliminary NO GROWTH AFTER 48 HOURS Resulted 06/17/18 21:00 Sputum Expectorated Gram Stain - Final Resulted 06/17/18 21:00 Sputum Expectorated Sputum Culture Pending Resulted 06/16/18 18:00 Nasal Nares MRSA Culture - Final NO METHICILLIN RESISTANT STAPH AUREUS... Complete 06/16/18 14:09 Urine,Clean Catch Urine Culture - Preliminary Yeast Species Resulted 06/16/18 23:00 Hip Left Gram Stain - Final Resulted 06/16/18 23:00 Wound Culture - Preliminary Gram Positive Cocci Resulted 06/16/18 23:00 Sacral Wound Gram Stain - Final Resulted 06/16/18 23:00 Wound Culture - Preliminary Gram Negative Bacillus 1 Gram Negative Bacillus 2 Gram Positive Cocci Resulted Laboratory Tests Test 06/18/18 17:15 06/19/18 07:30 Histoplasma Antigen Pending Coccidioides Antibody (Comp Fix) Pending Current Medications Medications (Trade) Dose Ordered Sig/Briseida Route PRN Reason Start Time Stop Time Status Last Admin Dose Admin Acetaminophen (Tylenol) 650 mg Q4H PRN GT Mild Pain/Temp > 100.5 06/17/18 07:00 07/17/18 06:59 06/17/18 23:40 Acetylcysteine (Mucomyst) 100 mg TIDRT HHN 06/18/18 19:00 07/18/18 18:59 06/19/18 07:38 Albuterol/ Ipratropium (Albuterol/ Ipratropium) 3 ml Q4H PRN HHN Shortness of Breath 06/17/18 15:45 06/22/18 15:44 Albuterol/ Ipratropium (Albuterol/ Ipratropium) 3 ml Q6HRT HHN 06/17/18 19:00 06/22/18 18:59 06/19/18 07:38 Ascorbic Acid (Vitamin C) 500 mg BID GT 06/17/18 09:00 07/17/18 08:59 06/19/18 10:02 Aspirin (ASA) 81 mg DAILY GT 06/17/18 09:00 07/17/18 08:59 06/19/18 10:02 Dextrose (Dextrose 50%) 25 ml Q30M PRN IV Hypoglycemia 06/16/18 18:45 07/16/18 18:44 Dextrose (Dextrose 50%) 50 ml Q30M PRN IV Hypoglycemia 06/16/18 18:45 07/16/18 18:44 Diltiazem HCl (Cardizem) 30 mg EVERY 8 HOURS GT 06/18/18 06:00 07/18/18 05:59 06/19/18 05:42 Donepezil HCl (Aricept) 10 mg BEDTIME GT 06/16/18 21:00 07/16/18 20:59 06/18/18 21:27 Heparin Sodium (Porcine) (Heparin 5000 units/ml) 5,000 units EVERY 12 HOURS SUBQ 06/17/18 21:00 07/17/18 20:59 06/19/18 10:03 Insulin Aspart (NovoLOG) Q6HR SUBQ 06/17/18 00:00 07/16/18 20:59 06/19/18 11:57 Lansoprazole (Prevacid) 30 mg BID GT 06/17/18 18:00 07/17/18 17:59 06/19/18 10:02 Meropenem 1 gm/ Sodium Chloride 55 ml @ 110 mls/hr Q8H IVPB 06/17/18 10:00 06/22/18 09:59 06/19/18 10:05 Quetiapine Fumarate (SEROquel) 12.5 mg Q4H PRN ORAL For Anxiety 06/17/18 13:15 07/17/18 13:14 Sitagliptin Phosphate (Januvia) 100 mg DAILY GT 06/17/18 09:00 07/17/18 08:59 06/19/18 10:02 Zinc Sulfate (Zinc Sulfate) 220 mg DAILY GT 06/17/18 09:00 07/17/18 08:59 06/19/18 10:02 Herson Palmer MD Jun 19, 2018 12:36
--- NOTE | 2018-06-19 13:44 | General Progress Note ---
Assessment/Plan Status: stable Assessment/Plan ASSESSMENT AND RECOMMENDATIONS: #. Anemia due to underlying chronic disease. ESR was 115 prior to admission. Closely monitor for improvement. The patient has ongoing anemia, likely related to underlying decubitus ulceration. In addition to being chronically ill, bedbound, and hemoglobin, ferritin is >1000 --> transfuse if hgb <7 --> presurgery given 1 dose of epogen for more rapid recovery --> no hemolysis #. Hyperproteinemia. Given albumin dissociation -> spep and upep have been ordered to evaluate for spike in m-spike - pending --> if above elevated, consider immunoglobulin tests --> appreciate pulm recs --> 06/19 albuin bolus #. Hospital-acquired pneumonia. He is on broad-spectrum antibiotics. Given nasal cannula. --> abx as per ID #. Azotemia. Given fluids as needed. BUN of 35. #. Stage IV ulcerations on the left and right side. Stage IV ulcerations --> Dr. Clark aware, following #. Dysphagia, status post PEG tube. #. Febrile state. Add antibiotics as needed. #. Incontinence with a Beltran catheter in place. Beltran catheter is in place. --> uro recs as needed I appreciate the consultation. Subjective Date patient seen: Jun 19, 2018 ROS Limited/Unobtainable: Yes Hematologic/Lymphatic: Reports: anemia Allergies: Coded Allergies: CEFTRIAXONE (Verified Allergy, Unknown, 04/04/18) Subjective Albumin bolus for today. VS stable. Objective Last 24 Hour Vital Signs Date Time Temp Pulse Resp B/P (MAP) Pulse Ox O2 Delivery O2 Flow Rate FiO2 06/19/18 12:00 98.0 77 20 112/59 (76) 100 06/19/18 09:00 Nasal Cannula 2.0 06/19/18 08:00 98.3 83 18 97/63 (74) 100 06/19/18 08:00 86 06/19/18 07:48 75 18 98 Nasal Cannula 3.0 32 06/19/18 07:38 82 22 98 Nasal Cannula 3.0 32 06/19/18 07:35 Nasal Cannula 3.0 32 06/19/18 07:34 98 Nasal Cannula 3.0 32 06/19/18 05:42 80 114/65 06/19/18 04:00 97.2 80 20 114/65 (81) 100 11/8/18 03:33 67 06/19/18 01:48 85 20 99 Nasal Cannula 3.0 32 06/19/18 01:33 88 20 98 Nasal Cannula 3.0 32 06/19/18 00:00 98.0 89 20 105/61 (76) 100 06/18/18 23:20 89 06/18/18 21:27 88 108/65 06/18/18 21:00 Nasal Cannula 2.0 06/18/18 20:27 88 20 99 Nasal Cannula 3.0 32 06/18/18 20:12 Nasal Cannula 3.0 32 06/18/18 20:12 75 20 97 Nasal Cannula 3.0 32 06/18/18 20:12 97 Nasal Cannula 3.0 32 06/18/18 20:00 99 06/18/18 20:00 97.4 100 20 108/65 (79) 98 06/18/18 16:00 103 06/18/18 16:00 98.7 101 20 116/67 (83) 97 Intake and Output 06/18/18 06/19/18 19:00 07:00 Intake Total 1140 ml 865 ml Output Total 700 ml 725 ml Balance 440 ml 140 ml Intake Free Water 260 ml 150 ml IV Total 220 ml 55 ml Tube Feeding 660 ml 660 ml Output Urine Total 700 ml 700 ml Drainage Total 25 ml # Bowel Movements 1 Laboratory Tests 06/18/18 17:15: Histoplasma Antigen [Pending] 06/19/18 07:30: Coccidioides Antibody (Comp Fix) [Pending] Height (Feet): 5 Height (Inches): 6.00 Weight (Pounds): 199 Objective GENERAL: He is a nonverbal male, in no acute distress, +++NC HEENT: Normocephalic and atraumatic. Oropharynx is clear. NECK: Supple without lymphadenopathy. CHEST: Coarse bilateral rhonchi. HEART: Regular rhythm. ABDOMEN: Soft, nontender, nondistended. Feeding tube is noted. EXTREMITIES: No cyanosis, clubbing, or edema. BACK: unstageable requiring debridement Nikolai Richards MD Jun 19, 2018 13:44
[2018-06-19] MEDS ORDERED: NS 275ml ONE (14:13)
[2018-06-19] MEDS ORDERED: Tubing IV Secondary IV ONE (14:13)
[2018-06-19] MEDS ORDERED: Sterile Water Irrig 1000ml IRRIG ONE (14:13)
--- NOTE | 2018-06-19 15:57 | Operative Note - PDOC ---
Operative Note Operative Note Implant(s) used?: No Description of Procedure see dictated report Shamar Clark Jun 19, 2018 15:57
[2018-06-19 16:00] VITALS: BP 118/74
--- NOTE | 2018-06-19 17:28 | General Surgery Progress Note ---
General Surgery-Progress Note Subjective Additional Comments no acute events. vac functional. Objective Last 24 Hour Vital Signs Date Time Temp Pulse Resp B/P (MAP) Pulse Ox O2 Delivery O2 Flow Rate FiO2 06/19/18 16:00 97.1 85 20 118/74 (89) 100 06/19/18 14:25 72 18 98 Nasal Cannula 3.0 32 06/19/18 14:15 83 20 98 Nasal Cannula 3.0 32 06/19/18 13:55 78 112/59 06/19/18 12:00 98.0 77 20 112/59 (76) 100 06/19/18 12:00 83 06/19/18 09:00 Nasal Cannula 2.0 06/19/18 08:00 98.3 83 18 97/63 (74) 100 06/19/18 08:00 86 06/19/18 07:48 75 18 98 Nasal Cannula 3.0 32 06/19/18 07:38 82 22 98 Nasal Cannula 3.0 32 06/19/18 07:35 Nasal Cannula 3.0 32 06/19/18 07:34 98 Nasal Cannula 3.0 32 06/19/18 05:42 80 114/65 06/19/18 04:00 97.2 80 20 114/65 (81) 100 06/19/18 03:33 67 06/19/18 01:48 85 20 99 Nasal Cannula 3.0 32 06/19/18 01:33 88 20 98 Nasal Cannula 3.0 32 06/19/18 00:00 98.0 89 20 105/61 (76) 100 06/18/18 23:20 89 06/18/18 21:27 88 108/65 06/18/18 21:00 Nasal Cannula 2.0 06/18/18 20:27 88 20 99 Nasal Cannula 3.0 32 06/18/18 20:12 Nasal Cannula 3.0 32 06/18/18 20:12 75 20 97 Nasal Cannula 3.0 32 06/18/18 20:12 97 Nasal Cannula 3.0 32 06/18/18 20:00 99 06/18/18 20:00 97.4 100 20 108/65 (79) 98 I&O Intake and Output 06/18/18 06/19/18 19:00 07:00 Intake Total 1140 ml 865 ml Output Total 700 ml 725 ml Balance 440 ml 140 ml Intake Free Water 260 ml 150 ml IV Total 220 ml 55 ml Tube Feeding 660 ml 660 ml Output Urine Total 700 ml 700 ml Drainage Total 25 ml # Bowel Movements 1 Dressing: other Wound: other Drains: wound vac Cardiovascular: RSR Respiratory: clear Abdomen: soft, flat, non-tender, present bowel sounds Extremities: other Laboratory Tests Test 06/19/18 07:30 Coccidioides Antibody (Comp Fix) Pending Plan Problems: (1) Decubitus skin ulcer (2) Sacral decubitus ulcer, stage IV Assessment & Plan: full thickness wound noted. discussed with daughter. recently had debridement at [facility] still with 20-25% sloth and debris. daughter expressed that she would like wound cleaned as much as possible given how chronic it is. wound debrided at bedside. see note wound VAC on and functional nutritional optimization (3) Decubitus ulcer of left hip, stage 4 (4) Decubitus ulcer of right hip, stage 3 Shamar Clark Jun 19, 2018 17:28
--- NOTE | 2018-06-19 18:38 | Pulmonology Progress Note ---
Assessment/Plan Assessment/Plan ASSESSMENT: The patient is a 68-year-old male retirement resident with acute on chronic hypoxemic hypercapnic respiratory failure, bilateral infiltrates, likely recurrent healthcare-associated pneumonia, dementia, CVA, dysphagia, hypertension, and CAD. CT of the chest demonstrates e/o chronic lung disease with bilateral tree-in-bud opacities, reticulonodular infiltrates and bronchiectasis PROBLEM LIST: 1. Multifocal pneumonia, healthcare-associated pneumonia. 2. B reticulonodular infiltrates in a tree-in-bud appearance, suggestive of an infectious bronchiolitis, i.e. BISI, and bronchiectasis 3. correction resident. 4. Dementia/CVA. 5. Dysphagia. 6. Hypertension, CAD. 7. Protein albumin discordance. TREATMENT PLAN: 1. Breticulonodular infiltrates in a tree in bud appearance is usually indicative of an infectious bronchiolitis, i.e. BISI. We sent off serologies. Given that he is DNAR/DNI and that he would be unlikely to tolerate BISI therapy (@ least 18 months of REC) I feel the risks of bronchoscopy outweigh any potential benefits. 2. Abx (J LUIS) per ID. F/U serologies, CX and AFB (NOT FOR MTB but for BISI) 3. Optimize pulmonary hygiene/mobilize as tolerated. 4. Titrate down FiO2 to keep saturations greater than 90%. 5. P.r.n. BiPAP. 6. PRN and PRN HHN's 7. Mucomyst HHN's 8. CPT 9. Aspiration precautions, cautious tube feeds. 10. Monitor volumes and renal function. 11. Wound care, wound vac, surgery recs 12. Heparin subcutaneous for DVT prophylaxis. 12. DNR/DNI. Discussed case at length tonight with the patient's daughter, Belinda Rivero. She is concerned that his current quality of life is unacceptable and would like to avoid further hospitalizations. We discussed many options, including hospice care, which would be most appropriate. She inquired about him returning to his SNF on hospice (once optimized). I told her that Dr. Zhou will discuss the plan with her further tommorrow and could likely facilitate that but that I agree that SNF with hospice would be most appropriate given the overall goals of care. Extended visit 60 min Subjective Allergies: Coded Allergies: CEFTRIAXONE (Verified Allergy, Unknown, 04/04/18) Subjective AFVSS, O2 needs stable Has wound vac + cough + SOB no F/C Objective Last 24 Hour Vital Signs Date Time Temp Pulse Resp B/P (MAP) Pulse Ox O2 Delivery O2 Flow Rate FiO2 06/19/18 16:00 97.1 85 20 118/74 (89) 100 06/19/18 14:25 72 18 98 Nasal Cannula 3.0 32 06/19/18 14:15 83 20 98 Nasal Cannula 3.0 32 06/19/18 13:55 78 112/59 06/19/18 12:00 98.0 77 20 112/59 (76) 100 06/19/18 12:00 83 06/19/18 09:00 Nasal Cannula 2.0 06/19/18 08:00 98.3 83 18 97/63 (74) 100 06/19/18 08:00 86 06/19/18 07:48 75 18 98 Nasal Cannula 3.0 32 06/19/18 07:38 82 22 98 Nasal Cannula 3.0 32 06/19/18 07:35 Nasal Cannula 3.0 32 06/19/18 07:34 98 Nasal Cannula 3.0 32 06/19/18 05:42 80 114/65 06/19/18 04:00 97.2 80 20 114/65 (81) 100 06/19/18 03:33 67 06/19/18 01:48 85 20 99 Nasal Cannula 3.0 32 06/19/18 01:33 88 20 98 Nasal Cannula 3.0 32 06/19/18 00:00 98.0 89 20 105/61 (76) 100 06/18/18 23:20 89 06/18/18 21:27 88 108/65 06/18/18 21:00 Nasal Cannula 2.0 06/18/18 20:27 88 20 99 Nasal Cannula 3.0 32 06/18/18 20:12 Nasal Cannula 3.0 32 06/18/18 20:12 75 20 97 Nasal Cannula 3.0 32 06/18/18 20:12 97 Nasal Cannula 3.0 32 06/18/18 20:00 99 06/18/18 20:00 97.4 100 20 108/65 (79) 98 Intake and Output 06/18/18 06/19/18 19:00 07:00 Intake Total 1140 ml 865 ml Output Total 700 ml 725 ml Balance 440 ml 140 ml Intake Free Water 260 ml 150 ml IV Total 220 ml 55 ml Tube Feeding 660 ml 660 ml Output Urine Total 700 ml 700 ml Drainage Total 25 ml # Bowel Movements 1 General Appearance: cachetic HEENT: normocephalic, atraumatic, anicteric, mucous membranes moist Respiratory/Chest: rhonchi Cardiovascular: normal peripheral pulses, normal rate, regular rhythm Abdomen: normal bowel sounds, soft, non tender, no organomegaly, non distended , other - GT Extremities: no cyanosis, no clubbing, no edema, other - contracted Microbiology Date/Time Source Procedure Growth Status 06/17/18 21:00 Sputum Expectorated Gram Stain - Final Resulted 06/17/18 21:00 Sputum Expectorated Sputum Culture Pending Resulted 06/16/18 23:00 Hip Left Gram Stain - Final Resulted 06/16/18 23:00 Wound Culture - Preliminary Gram Positive Cocci Resulted 06/16/18 23:00 Sacral Wound Gram Stain - Final Resulted 06/16/18 23:00 Wound Culture - Preliminary Gram Negative Bacillus 1 Gram Negative Bacillus 2 Gram Positive Cocci Resulted Laboratory Tests 06/19/18 07:30: Coccidioides Antibody (Comp Fix) [Pending] Current Medications Medications (Trade) Dose Ordered Sig/Briseida Route PRN Reason Start Time Stop Time Status Last Admin Dose Admin Acetaminophen (Tylenol) 650 mg Q4H PRN GT Mild Pain/Temp > 100.5 06/17/18 07:00 07/17/18 06:59 06/17/18 23:40 Acetylcysteine (Mucomyst) 100 mg TIDRT HHN 06/18/18 19:00 07/18/18 18:59 06/19/18 14:15 Albuterol/ Ipratropium (Albuterol/ Ipratropium) 3 ml Q4H PRN HHN Shortness of Breath 06/17/18 15:45 06/22/18 15:44 Albuterol/ Ipratropium (Albuterol/ Ipratropium) 3 ml Q6HRT HHN 06/17/18 19:00 06/22/18 18:59 06/19/18 14:15 Ascorbic Acid (Vitamin C) 500 mg BID GT 06/17/18 09:00 07/17/18 08:59 06/19/18 18:13 Aspirin (ASA) 81 mg DAILY GT 06/17/18 09:00 07/17/18 08:59 06/19/18 10:02 Dextrose (Dextrose 50%) 25 ml Q30M PRN IV Hypoglycemia 06/16/18 18:45 07/16/18 18:44 Dextrose (Dextrose 50%) 50 ml Q30M PRN IV Hypoglycemia 06/16/18 18:45 07/16/18 18:44 Diltiazem HCl (Cardizem) 30 mg EVERY 8 HOURS GT 06/18/18 06:00 07/18/18 05:59 06/19/18 13:55 Donepezil HCl (Aricept) 10 mg BEDTIME GT 06/16/18 21:00 07/16/18 20:59 06/18/18 21:27 Heparin Sodium (Porcine) (Heparin 5000 units/ml) 5,000 units EVERY 12 HOURS SUBQ 06/17/18 21:00 07/17/18 20:59 06/19/18 10:03 Insulin Aspart (NovoLOG) Q6HR SUBQ 06/17/18 00:00 07/16/18 20:59 06/19/18 18:24 Lansoprazole (Prevacid) 30 mg BID GT 06/17/18 18:00 07/17/18 17:59 06/19/18 18:13 Meropenem 1 gm/ Sodium Chloride 55 ml @ 110 mls/hr Q8H IVPB 06/17/18 10:00 06/22/18 09:59 06/19/18 18:13 Quetiapine Fumarate (SEROquel) 12.5 mg Q4H PRN ORAL For Anxiety 06/17/18 13:15 07/17/18 13:14 Sitagliptin Phosphate (Januvia) 100 mg DAILY GT 06/17/18 09:00 07/17/18 08:59 06/19/18 10:02 Zinc Sulfate (Zinc Sulfate) 220 mg DAILY GT 06/17/18 09:00 07/17/18 08:59 06/19/18 10:02 Yrn Buckley MD Jun 19, 2018 18:38
--- NOTE | 2018-06-19 19:30 | Progress Note ---
DATE: 06/19/2018 SUBJECTIVE: The patient is in bed. No behavioral issues. She is nonverbal. Still has episodes of agitation, cognitive impairment, and waxing and waning consciousness. MENTAL STATUS EXAMINATION: The patient is confused and disoriented. Mood is neutral to anxious. Affect is constricted, congruent with mood. Thought process is concrete. Thought content, no suicidal or homicidal ideation. PLAN: We will continue the current medication. The patient was provided reality orientation. Shawn Meza M.D. DR: Jan JOB#: [id number] CC:
[2018-06-19 20:00] VITALS: BP_SYST 134; BP_DIAS 19; BP_DIAS 79
[2018-06-19] MEDS: Donepezil 5mg Tab GT SCH (21:04)
--- NOTE | 2018-06-19 21:37 | General Progress Note ---
Assessment/Plan Problem List: (1) UTI (urinary tract infection) ICD Codes: N39.0 - Urinary tract infection, site not specified SNOMED: 43588488 (2) PNA (pneumonia) ICD Codes: J18.9 - Pneumonia, unspecified organism SNOMED: 101293505 (3) Sacral decubitus ulcer, stage IV ICD Codes: L89.154 - Pressure ulcer of sacral region, stage 4 SNOMED: 863877966, 411946035 (4) Cachexia ICD Codes: R64 - Cachexia SNOMED: 727904662 (5) Acute renal failure ICD Codes: N17.9 - Acute kidney failure, unspecified SNOMED: 99242016 (6) Decubitus skin ulcer ICD Codes: L89.90 - Pressure ulcer of unspecified site, unspecified stage SNOMED: 113163041 Status: progressing Assessment/Plan dpoa wants comfort care wound care per dr muhammad sacral decub pna and sepsis cachexia severe malnutrition Subjective ROS Limited/Unobtainable: Yes Allergies: Coded Allergies: CEFTRIAXONE (Verified Allergy, Unknown, 04/04/18) Objective Last 24 Hour Vital Signs Date Time Temp Pulse Resp B/P (MAP) Pulse Ox O2 Delivery O2 Flow Rate FiO2 06/19/18 21:17 95 20 98 Nasal Cannula 3.0 32 06/19/18 21:08 92 20 98 Nasal Cannula 3.0 32 06/19/18 21:08 Nasal Cannula 3.0 32 06/19/18 21:07 98 Nasal Cannula 3.0 32 06/19/18 21:07 92 134/79 06/19/18 21:00 Nasal Cannula 2.0 06/19/18 20:00 98.5 97 20 134/19 (57) 97 06/19/18 20:00 92 06/19/18 16:00 97.1 85 20 118/74 (89) 100 06/19/18 16:00 87 06/19/18 14:25 72 18 98 Nasal Cannula 3.0 32 06/19/18 14:15 83 20 98 Nasal Cannula 3.0 32 06/19/18 13:55 78 112/59 06/19/18 12:00 98.0 77 20 112/59 (76) 100 06/19/18 12:00 83 06/19/18 09:00 Nasal Cannula 2.0 06/19/18 08:00 98.3 83 18 97/63 (74) 100 06/19/18 08:00 86 06/19/18 07:48 75 18 98 Nasal Cannula 3.0 32 06/19/18 07:38 82 22 98 Nasal Cannula 3.0 32 06/19/18 07:35 Nasal Cannula 3.0 32 06/19/18 07:34 98 Nasal Cannula 3.0 32 06/19/18 05:42 80 114/65 06/19/18 04:00 97.2 80 20 114/65 (81) 100 06/19/18 03:33 67 06/19/18 01:48 85 20 99 Nasal Cannula 3.0 32 06/19/18 01:33 88 20 98 Nasal Cannula 3.0 32 06/19/18 00:00 98.0 89 20 105/61 (76) 100 06/18/18 23:20 89 Intake and Output 06/18/18 06/19/18 18:59 06:59 Intake Total 1140 ml 865 ml Output Total 700 ml Balance 440 ml 865 ml Intake Free Water 260 ml 150 ml IV Total 220 ml 55 ml Tube Feeding 660 ml 660 ml Output Urine Total 700 ml # Bowel Movements 1 Laboratory Tests 06/19/18 07:30: Coccidioides Antibody (Comp Fix) [Pending] Height (Feet): 5 Height (Inches): 6.00 Weight (Pounds): 132 General Appearance: confused Cardiovascular: normal rate Respiratory/Chest: lungs clear Jamia Wu MD Jun 19, 2018 21:37
[2018-06-20] VITALS: BP 121/75
[2018-06-20] MEDS: Albuterol/Ipratropium 3ml neb HHN SCH ×4 (01:11→20:28)
[2018-06-20] MEDS: Meropenem 1 GM in NS 55 ML IVPB SCH ×3 (01:11→17:25)
[2018-06-20 04:00] VITALS: BP 123/78
[2018-06-20 05:31] LABS: BASOPHILS % (AUTO) 0.8 % (0.0-2.0); EOSINOPHILS % (AUTO) 8.5 % (0.0-3.0); LYMPHOCYTES % (AUTO) 17.2 % (20.0-45.0); MEAN CORPUSCULAR VOLUME 84 FL (80-99); NEUTROPHILS % (AUTO) 68.5 % (45.0-75.0); PLATELET COUNT 360 K/UL (150-450); RED BLOOD COUNT 3.44 M/UL (4.70-6.10); RED CELL DISTRIBUTION WIDTH 15.6 % (11.6-14.8); WHITE BLOOD COUNT 7.6 K/UL (4.8-10.8)
[2018-06-20] MEDS: NovoLOG Insulin Flexpen SUBQ SCH ×4 (05:32→23:54)
[2018-06-20] MEDS: dilTIAZem HCl 30mg tab GT SCH ×3 (05:32→22:00)
[2018-06-20 06:02] LABS: ALANINE AMINOTRANSFERASE 20 U/L (12-78); ALBUMIN 2.8 G/DL (3.4-5.0); ALBUMIN/GLOBULIN RATIO 0.4 (1.0-2.7); ALKALINE PHOSPHATASE 146 U/L (46-116); ANION GAP 1 mmol/L (5-15); ASPARTATE AMINO TRANSFERASE 19 U/L (15-37); BILIRUBIN,TOTAL 0.3 MG/DL (0.2-1.0); BLOOD UREA NITROGEN 22 mg/dL (7-18); CALCIUM 8.9 MG/DL (8.5-10.1); CARBON DIOXIDE 35 MMOL/L (21-32); CHLORIDE 104 MMOL/L (98-107); CREATININE 0.6 MG/DL (0.55-1.30); PHOSPHORUS 2.1 MG/DL (2.5-4.9); POTASSIUM 4.6 MMOL/L (3.5-5.1); SODIUM 140 MMOL/L (136-145)
--- NOTE | 2018-06-20 06:16 | General Progress Note ---
Assessment/Plan Assessment/Plan #. Anemia due to underlying chronic disease. ESR was 115 prior to admission. Closely monitor for improvement. The patient has ongoing anemia, likely related to underlying decubitus ulceration. In addition to being chronically ill, bedbound, and hemoglobin, ferritin is >1000 --> transfuse if hgb <7 --> presurgery has been given 1 dose of epogen for more rapid recovery --> no hemolysis #. Hyperproteinemia. Given albumin dissociation -> spep and upep have been ordered to evaluate for spike in m-spike, appears preliminary no m-spike noted --> appreciate pulm recs --> 06/19 albuin bolus #. Hospital-acquired pneumonia. He is on broad-spectrum antibiotics. Given nasal cannula. --> abx as per ID #. Azotemia. Given fluids as needed. BUN of 35. #. Stage IV ulcerations on the left and right side. Stage IV ulcerations --> Dr. Clark aware, following #. Dysphagia, status post PEG tube. #. Febrile state. Add antibiotics as needed. #. Incontinence with a Beltran catheter in place. Beltran catheter is in place. --> uro recs as needed #. DPOA wants comfort care I appreciate the consultation. Subjective ROS Limited/Unobtainable: Yes Hematologic/Lymphatic: Denies: no symptoms, anemia, easy bleeding, easy bruising, other Allergies: Coded Allergies: CEFTRIAXONE (Verified Allergy, Unknown, 04/04/18) Subjective non-verbal, resting comfortably. VS stable. Objective Last 24 Hour Vital Signs Date Time Temp Pulse Resp B/P (MAP) Pulse Ox O2 Delivery O2 Flow Rate FiO2 06/20/18 05:32 91 123/78 06/20/18 04:00 97.0 96 20 123/78 (93) 100 06/20/18 04:00 91 06/20/18 01:25 92 20 98 Nasal Cannula 3.0 32 06/20/18 01:09 100 20 98 Nasal Cannula 3.0 32 06/20/18 00:00 97.0 98 20 121/75 (90) 96 06/20/18 00:00 100 06/19/18 21:17 95 20 98 Nasal Cannula 3.0 32 06/19/18 21:08 92 20 98 Nasal Cannula 3.0 32 11/8/18 21:08 Nasal Cannula 3.0 32 06/19/18 21:07 98 Nasal Cannula 3.0 32 06/19/18 21:07 92 134/79 06/19/18 21:00 Nasal Cannula 2.0 06/19/18 20:00 98.5 97 20 134/79 (97) 97 06/19/18 20:00 92 06/19/18 16:00 97.1 85 20 118/74 (89) 100 06/19/18 16:00 87 06/19/18 14:25 72 18 98 Nasal Cannula 3.0 32 06/19/18 14:15 83 20 98 Nasal Cannula 3.0 32 06/19/18 13:55 78 112/59 06/19/18 12:00 98.0 77 20 112/59 (76) 100 06/19/18 12:00 83 06/19/18 09:00 Nasal Cannula 2.0 06/19/18 08:00 98.3 83 18 97/63 (74) 100 06/19/18 08:00 86 06/19/18 07:48 75 18 98 Nasal Cannula 3.0 32 06/19/18 07:38 82 22 98 Nasal Cannula 3.0 32 06/19/18 07:35 Nasal Cannula 3.0 32 06/19/18 07:34 98 Nasal Cannula 3.0 32 Intake and Output 06/19/18 06/20/18 19:00 07:00 Intake Total 85 ml 720 ml Output Total 500 ml Balance -415 ml 720 ml Intake Free Water 30 ml 60 ml IV Total 55 ml Tube Feeding 55 ml 605 ml Output Urine Total 500 ml Laboratory Tests 06/19/18 07:30: Coccidioides Antibody (Comp Fix) [Pending] 06/20/18 04:49: White Blood Count 7.6, Red Blood Count 3.44L, Hemoglobin 9.0L, Hematocrit 29.0L , Mean Corpuscular Volume 84, Mean Corpuscular Hemoglobin 26.1L, Mean Corpuscular Hemoglobin Concent 31.0L, Red Cell Distribution Width 15.6H, Platelet Count 360, Mean Platelet Volume 7.7, Neutrophils (%) (Auto) 68.5, Lymphocytes (%) (Auto) 17.2L, Monocytes (%) (Auto) 5.0, Eosinophils (%) (Auto) 8.5H, Basophils (%) (Auto) 0.8, Sodium Level 140, Potassium Level 4.6, Chloride Level 104, Carbon Dioxide Level 35H, Anion Gap 1L, Blood Urea Nitrogen 22H, Creatinine 0.6, Estimat Glomerular Filtration Rate > 60, Glucose Level 184H, Hemoglobin A1c 7.4H, Uric Acid 1.9L, Calcium Level 8.9, Phosphorus Level 2.1L, Magnesium Level 2.2, Total Bilirubin 0.3, Gamma Glutamyl Transpeptidase [Pending ], Aspartate Amino Transf (AST/SGOT) 19, Alanine Aminotransferase (ALT/SGPT) 20 , Alkaline Phosphatase 146H, Troponin I [Pending], C-Reactive Protein, Quantitative 9.5H, Pro-B-Type Natriuretic Peptide 359H, Total Protein 9.5H, Albumin 2.8L, Globulin 6.7, Albumin/Globulin Ratio 0.4L, Vitamin B12 Level [ Pending] Height (Feet): 5 Height (Inches): 6.00 Weight (Pounds): 133 Objective GENERAL: He is a nonverbal male, in no acute distress, +++NC HEENT: Normocephalic and atraumatic. Oropharynx is clear. NECK: Supple without lymphadenopathy. CHEST: Coarse bilateral rhonchi. HEART: Regular rhythm. ABDOMEN: Soft, nontender, nondistended. ++ peg EXTREMITIES: No cyanosis, clubbing, or edema. BACK: unstageable requiring debridement Nikolai Richards MD Jun 20, 2018 06:16
[2018-06-20 08:00] VITALS: BP 108/67
[2018-06-20] MEDS: Zinc Sulfate 220mg cap GT SCH (08:19)
[2018-06-20] MEDS: Aspirin Baby 81mg GT SCH (08:19)
[2018-06-20] MEDS: Ascorbic Acid 500mg tab GT SCH ×2 (08:19→17:24)
[2018-06-20] MEDS: Heparin 5000 units/ml inj SUBQ SCH ×2 (08:21→21:16)
--- NOTE | 2018-06-20 09:52 | Nephrology Progress Note ---
Assessment/Plan Problem List: (1) Cachexia (2) Proteinuria (3) UTI (urinary tract infection) (4) Diabetes mellitus out of control Assessment (1) UTI (urinary tract infection) / Pneumonia (2) Proteinuria (3) Azotemia (4) Cachexia (5) Anemia Pneumonia- Hypoxia - Renal failure- Proteinuria- Hypoalbuminemia Anemia- UTI- Cachexia , Malnutrition- PEG- HypoTension DM Plan Plan Phos supp respiratory support- Antibiotics Monitor renal parameters hold bp meds- parameters Hold Glucophage albumin bolus per orders Subjective ROS Limited/Unobtainable: No Constitutional: Reports: malaise Objective Objective Last 24 Hour Vital Signs Date Time Temp Pulse Resp B/P (MAP) Pulse Ox O2 Delivery O2 Flow Rate FiO2 06/20/18 08:00 97.9 87 20 108/67 (81) 100 06/20/18 07:55 Nasal Cannula 2.0 06/20/18 07:34 98 Nasal Cannula 3.0 32 06/20/18 07:34 Nasal Cannula 3.0 32 06/20/18 07:33 95 20 99 Nasal Cannula 3.0 32 06/20/18 07:24 84 18 98 Nasal Cannula 3.0 32 06/20/18 05:32 91 123/78 06/20/18 04:00 97.0 96 20 123/78 (93) 100 06/20/18 04:00 91 06/20/18 01:25 92 20 98 Nasal Cannula 3.0 32 06/20/18 01:09 100 20 98 Nasal Cannula 3.0 32 06/20/18 00:00 97.0 98 20 121/75 (90) 96 06/20/18 00:00 100 06/19/18 21:17 95 20 98 Nasal Cannula 3.0 32 06/19/18 21:08 92 20 98 Nasal Cannula 3.0 32 06/19/18 21:08 Nasal Cannula 3.0 32 06/19/18 21:07 98 Nasal Cannula 3.0 32 06/19/18 21:07 92 134/79 06/19/18 21:00 Nasal Cannula 2.0 06/19/18 20:00 98.5 97 20 134/79 (97) 97 06/19/18 20:00 92 06/19/18 16:00 97.1 85 20 118/74 (89) 100 06/19/18 16:00 87 06/19/18 14:25 72 18 98 Nasal Cannula 3.0 32 06/19/18 14:15 83 20 98 Nasal Cannula 3.0 32 06/19/18 13:55 78 112/59 06/19/18 12:00 98.0 77 20 112/59 (76) 100 06/19/18 12:00 83 Intake and Output 06/19/18 06/20/18 19:00 07:00 Intake Total 85 ml 720 ml Output Total 500 ml Balance -415 ml 720 ml Intake Free Water 30 ml 60 ml IV Total 55 ml Tube Feeding 55 ml 605 ml Output Urine Total 500 ml Laboratory Tests 06/20/18 04:49: White Blood Count 7.6, Red Blood Count 3.44L, Hemoglobin 9.0L, Hematocrit 29.0L , Mean Corpuscular Volume 84, Mean Corpuscular Hemoglobin 26.1L, Mean Corpuscular Hemoglobin Concent 31.0L, Red Cell Distribution Width 15.6H, Platelet Count 360, Mean Platelet Volume 7.7, Neutrophils (%) (Auto) 68.5, Lymphocytes (%) (Auto) 17.2L, Monocytes (%) (Auto) 5.0, Eosinophils (%) (Auto) 8.5H, Basophils (%) (Auto) 0.8, Sodium Level 140, Potassium Level 4.6, Chloride Level 104, Carbon Dioxide Level 35H, Anion Gap 1L, Blood Urea Nitrogen 22H, Creatinine 0.6, Estimat Glomerular Filtration Rate > 60, Glucose Level 184H, Hemoglobin A1c 7.4H, Uric Acid 1.9L, Calcium Level 8.9, Phosphorus Level 2.1L, Magnesium Level 2.2, Total Bilirubin 0.3, Gamma Glutamyl Transpeptidase 15, Aspartate Amino Transf (AST/SGOT) 19, Alanine Aminotransferase (ALT/SGPT) 20, Alkaline Phosphatase 146H, Troponin I 0.000, C-Reactive Protein, Quantitative 9.5H, Pro-B-Type Natriuretic Peptide 359H, Total Protein 9.5H, Albumin 2.8L, Globulin 6.7, Albumin/Globulin Ratio 0.4L, Vitamin B12 Level 1158H Height (Feet): 5 Height (Inches): 6.00 Weight (Pounds): 133 General Appearance: no apparent distress Cardiovascular: normal rate Respiratory/Chest: decreased breath sounds Abdomen: soft Objective no change Chava Dwyer MD Jun 20, 2018 09:52
[2018-06-20] MEDS: Phospha 250 Neutral tab ORAL SCH ×2 (10:31→17:24)
--- NOTE | 2018-06-20 11:19 | General Surgery Progress Note ---
General Surgery-Progress Note Subjective Additional Comments no acute events. doing well. wound vac changed. Objective Last 24 Hour Vital Signs Date Time Temp Pulse Resp B/P (MAP) Pulse Ox O2 Delivery O2 Flow Rate FiO2 06/20/18 08:00 91 06/20/18 08:00 97.9 87 20 108/67 (81) 100 06/20/18 07:55 Nasal Cannula 2.0 06/20/18 07:34 98 Nasal Cannula 3.0 32 06/20/18 07:34 Nasal Cannula 3.0 32 06/20/18 07:33 95 20 99 Nasal Cannula 3.0 32 06/20/18 07:24 84 18 98 Nasal Cannula 3.0 32 06/20/18 05:32 91 123/78 06/20/18 04:00 97.0 96 20 123/78 (93) 100 06/20/18 04:00 91 06/20/18 01:25 92 20 98 Nasal Cannula 3.0 32 06/20/18 01:09 100 20 98 Nasal Cannula 3.0 32 06/20/18 00:00 97.0 98 20 121/75 (90) 96 06/20/18 00:00 100 06/19/18 21:17 95 20 98 Nasal Cannula 3.0 32 06/19/18 21:08 92 20 98 Nasal Cannula 3.0 32 06/19/18 21:08 Nasal Cannula 3.0 32 06/19/18 21:07 98 Nasal Cannula 3.0 32 06/19/18 21:07 92 134/79 06/19/18 21:00 Nasal Cannula 2.0 06/19/18 20:00 98.5 97 20 134/79 (97) 97 06/19/18 20:00 92 06/19/18 16:00 97.1 85 20 118/74 (89) 100 06/19/18 16:00 87 06/19/18 14:25 72 18 98 Nasal Cannula 3.0 32 06/19/18 14:15 83 20 98 Nasal Cannula 3.0 32 06/19/18 13:55 78 112/59 06/19/18 12:00 98.0 77 20 112/59 (76) 100 06/19/18 12:00 83 I&O Intake and Output 06/19/18 06/20/18 19:00 07:00 Intake Total 85 ml 720 ml Output Total 500 ml Balance -415 ml 720 ml Intake Free Water 30 ml 60 ml IV Total 55 ml Tube Feeding 55 ml 605 ml Output Urine Total 500 ml Dressing: dry, other Wound: clean, other Drains: other Cardiovascular: RSR Respiratory: clear Abdomen: soft, flat, non-tender, present bowel sounds Extremities: other Laboratory Tests Test 06/20/18 04:49 White Blood Count 7.6 K/UL (4.8-10.8) Red Blood Count 3.44 M/UL (4.70-6.10) L Hemoglobin 9.0 G/DL (14.2-18.0) L Hematocrit 29.0 % (42.0-52.0) L Mean Corpuscular Volume 84 FL (80-99) Mean Corpuscular Hemoglobin 26.1 PG (27.0-31.0) L Mean Corpuscular Hemoglobin Concent 31.0 G/DL (32.0-36.0) L Red Cell Distribution Width 15.6 % (11.6-14.8) H Platelet Count 360 K/UL (150-450) Mean Platelet Volume 7.7 FL (6.5-10.1) Neutrophils (%) (Auto) 68.5 % (45.0-75.0) Lymphocytes (%) (Auto) 17.2 % (20.0-45.0) L Monocytes (%) (Auto) 5.0 % (1.0-10.0) Eosinophils (%) (Auto) 8.5 % (0.0-3.0) H Basophils (%) (Auto) 0.8 % (0.0-2.0) Sodium Level 140 MMOL/L (136-145) Potassium Level 4.6 MMOL/L (3.5-5.1) Chloride Level 104 MMOL/L (98-107) Carbon Dioxide Level 35 MMOL/L (21-32) H Anion Gap 1 mmol/L (5-15) L Blood Urea Nitrogen 22 mg/dL (7-18) H Creatinine 0.6 MG/DL (0.55-1.30) Estimat Glomerular Filtration Rate > 60 mL/min (>60) Glucose Level 184 MG/DL (74-106) H Hemoglobin A1c 7.4 % (4.3-6.0) H Uric Acid 1.9 MG/DL (2.6-7.2) L Calcium Level 8.9 MG/DL (8.5-10.1) Phosphorus Level 2.1 MG/DL (2.5-4.9) L Magnesium Level 2.2 MG/DL (1.8-2.4) Total Bilirubin 0.3 MG/DL (0.2-1.0) Gamma Glutamyl Transpeptidase 15 U/L (5-85) Aspartate Amino Transf (AST/SGOT) 19 U/L (15-37) Alanine Aminotransferase (ALT/SGPT) 20 U/L (12-78) Alkaline Phosphatase 146 U/L (46-116) H Troponin I 0.000 ng/mL (0.000-0.056) C-Reactive Protein, Quantitative 9.5 mg/dL (0.00-0.90) H Pro-B-Type Natriuretic Peptide 359 pg/mL (0-125) H Total Protein 9.5 G/DL (6.4-8.2) H Albumin 2.8 G/DL (3.4-5.0) L Globulin 6.7 g/dL Albumin/Globulin Ratio 0.4 (1.0-2.7) L Vitamin B12 Level 1158 PG/ML (193-986) H Plan Problems: (1) Decubitus skin ulcer (2) Sacral decubitus ulcer, stage IV Assessment & Plan: full thickness wound noted. discussed with daughter. recently had debridement at [facility] still with 20-25% sloth and debris. daughter expressed that she would like wound cleaned as much as possible given how chronic it is. wound debrided at bedside. see note VAC changed at bedside. wounds look good! wound VAC on and functional nutritional optimization (3) Decubitus ulcer of left hip, stage 4 (4) Decubitus ulcer of right hip, stage 3 Shamar Clark Jun 20, 2018 11:19
[2018-06-20 12:00] VITALS: BP 115/58
--- NOTE | 2018-06-20 12:37 | Infectious Diseases Prog Note ---
Assessment/Plan Assessment/Plan A; Pneumonia: CT scan tree in bud opacities Try to rule MAC & Fungal infection DM Dementia Pressure ulcer Anemia P; Continue Meropenem, add IV Vancomycin will f/u AFB X 3 No need for airborne isolation will f/u serum Coccidiomycosis antibody will f/u Urine Histoplasma antigen Subjective ROS Limited/Unobtainable: Yes Constitutional: Reports: no symptoms Allergies: Coded Allergies: CEFTRIAXONE (Verified Allergy, Unknown, 04/04/18) Objective Vital Signs Last 24 Hour Vital Signs Date Time Temp Pulse Resp B/P (MAP) Pulse Ox O2 Delivery O2 Flow Rate FiO2 06/20/18 12:00 97.8 87 20 115/58 (77) 100 06/20/18 08:00 91 06/20/18 08:00 97.9 87 20 108/67 (81) 100 06/20/18 07:55 Nasal Cannula 2.0 06/20/18 07:34 98 Nasal Cannula 3.0 32 06/20/18 07:34 Nasal Cannula 3.0 32 06/20/18 07:33 95 20 99 Nasal Cannula 3.0 32 06/20/18 07:24 84 18 98 Nasal Cannula 3.0 32 06/20/18 05:32 91 123/78 06/20/18 04:00 97.0 96 20 123/78 (93) 100 06/20/18 04:00 91 06/20/18 01:25 92 20 98 Nasal Cannula 3.0 32 06/20/18 01:09 100 20 98 Nasal Cannula 3.0 32 06/20/18 00:00 97.0 98 20 121/75 (90) 96 06/20/18 00:00 100 06/19/18 21:17 95 20 98 Nasal Cannula 3.0 32 06/19/18 21:08 92 20 98 Nasal Cannula 3.0 32 06/19/18 21:08 Nasal Cannula 3.0 32 06/19/18 21:07 98 Nasal Cannula 3.0 32 06/19/18 21:07 92 134/79 06/19/18 21:00 Nasal Cannula 2.0 06/19/18 20:00 98.5 97 20 134/79 (97) 97 06/19/18 20:00 92 06/19/18 16:00 97.1 85 20 118/74 (89) 100 06/19/18 16:00 87 06/19/18 14:25 72 18 98 Nasal Cannula 3.0 32 06/19/18 14:15 83 20 98 Nasal Cannula 3.0 32 06/19/18 13:55 78 112/59 Height (Feet): 5 Height (Inches): 6.00 Weight (Pounds): 133 HEENT: mucous membranes moist Respiratory/Chest: lungs clear Cardiovascular: normal rate Abdomen: soft, non tender Extremities: no edema Neurologic/Psychiatric: aphasia Microbiology Date/Time Source Procedure Growth Status 06/17/18 21:00 Sputum Expectorated Gram Stain - Final Resulted 06/17/18 21:00 Sputum Expectorated Sputum Culture - Preliminary Resulted Laboratory Tests Test 06/20/18 04:49 White Blood Count 7.6 K/UL (4.8-10.8) Red Blood Count 3.44 M/UL (4.70-6.10) L Hemoglobin 9.0 G/DL (14.2-18.0) L Hematocrit 29.0 % (42.0-52.0) L Mean Corpuscular Volume 84 FL (80-99) Mean Corpuscular Hemoglobin 26.1 PG (27.0-31.0) L Mean Corpuscular Hemoglobin Concent 31.0 G/DL (32.0-36.0) L Red Cell Distribution Width 15.6 % (11.6-14.8) H Platelet Count 360 K/UL (150-450) Mean Platelet Volume 7.7 FL (6.5-10.1) Neutrophils (%) (Auto) 68.5 % (45.0-75.0) Lymphocytes (%) (Auto) 17.2 % (20.0-45.0) L Monocytes (%) (Auto) 5.0 % (1.0-10.0) Eosinophils (%) (Auto) 8.5 % (0.0-3.0) H Basophils (%) (Auto) 0.8 % (0.0-2.0) Sodium Level 140 MMOL/L (136-145) Potassium Level 4.6 MMOL/L (3.5-5.1) Chloride Level 104 MMOL/L (98-107) Carbon Dioxide Level 35 MMOL/L (21-32) H Anion Gap 1 mmol/L (5-15) L Blood Urea Nitrogen 22 mg/dL (7-18) H Creatinine 0.6 MG/DL (0.55-1.30) Estimat Glomerular Filtration Rate > 60 mL/min (>60) Glucose Level 184 MG/DL (74-106) H Hemoglobin A1c 7.4 % (4.3-6.0) H Uric Acid 1.9 MG/DL (2.6-7.2) L Calcium Level 8.9 MG/DL (8.5-10.1) Phosphorus Level 2.1 MG/DL (2.5-4.9) L Magnesium Level 2.2 MG/DL (1.8-2.4) Total Bilirubin 0.3 MG/DL (0.2-1.0) Gamma Glutamyl Transpeptidase 15 U/L (5-85) Aspartate Amino Transf (AST/SGOT) 19 U/L (15-37) Alanine Aminotransferase (ALT/SGPT) 20 U/L (12-78) Alkaline Phosphatase 146 U/L (46-116) H Troponin I 0.000 ng/mL (0.000-0.056) C-Reactive Protein, Quantitative 9.5 mg/dL (0.00-0.90) H Pro-B-Type Natriuretic Peptide 359 pg/mL (0-125) H Total Protein 9.5 G/DL (6.4-8.2) H Albumin 2.8 G/DL (3.4-5.0) L Globulin 6.7 g/dL Albumin/Globulin Ratio 0.4 (1.0-2.7) L Vitamin B12 Level 1158 PG/ML (193-986) H Current Medications Medications (Trade) Dose Ordered Sig/Briseida Route PRN Reason Start Time Stop Time Status Last Admin Dose Admin Acetaminophen (Tylenol) 650 mg Q4H PRN GT Mild Pain/Temp > 100.5 06/17/18 07:00 07/17/18 06:59 06/17/18 23:40 Acetylcysteine (Mucomyst) 100 mg TIDRT HHN 06/18/18 19:00 18 18:59 06/20/18 07:32 Albuterol/ Ipratropium (Albuterol/ Ipratropium) 3 ml Q4H PRN HHN Shortness of Breath 06/17/18 15:45 06/22/18 15:44 Albuterol/ Ipratropium (Albuterol/ Ipratropium) 3 ml Q6HRT HHN 06/17/18 19:00 06/22/18 18:59 06/20/18 07:32 Ascorbic Acid (Vitamin C) 500 mg BID GT 06/17/18 09:00 07/17/18 08:59 06/20/18 08:19 Aspirin (ASA) 81 mg DAILY GT 06/17/18 09:00 07/17/18 08:59 06/20/18 08:19 Dextrose (Dextrose 50%) 25 ml Q30M PRN IV Hypoglycemia 06/16/18 18:45 07/16/18 18:44 Dextrose (Dextrose 50%) 50 ml Q30M PRN IV Hypoglycemia 06/16/18 18:45 07/16/18 18:44 Diltiazem HCl (Cardizem) 30 mg EVERY 8 HOURS GT 06/18/18 06:00 07/18/18 05:59 06/20/18 05:32 Donepezil HCl (Aricept) 10 mg BEDTIME GT 06/16/18 21:00 07/16/18 20:59 06/19/18 21:04 Heparin Sodium (Porcine) (Heparin 5000 units/ml) 5,000 units EVERY 12 HOURS SUBQ 06/17/18 21:00 07/17/18 20:59 06/20/18 08:21 Insulin Aspart (NovoLOG) Q6HR SUBQ 06/17/18 00:00 07/16/18 20:59 06/20/18 11:53 Lansoprazole (Prevacid) 30 mg BID GT 06/17/18 18:00 07/17/18 17:59 06/20/18 08:19 Meropenem 1 gm/ Sodium Chloride 55 ml @ 110 mls/hr Q8H IVPB 06/17/18 10:00 06/22/18 09:59 06/20/18 11:01 Phosphorus (Phospha 250 Neutral) 250 mg BID ORAL 06/20/18 10:00 07/20/18 09:59 06/20/18 10:31 Quetiapine Fumarate (SEROquel) 12.5 mg Q4H PRN ORAL For Anxiety 06/17/18 13:15 07/17/18 13:14 Sitagliptin Phosphate (Januvia) 100 mg DAILY GT 06/17/18 09:00 07/17/18 08:59 06/20/18 08:20 Zinc Sulfate (Zinc Sulfate) 220 mg DAILY GT 06/17/18 09:00 07/17/18 08:59 06/20/18 08:19 Herson Palmer MD Jun 20, 2018 12:37
--- NOTE | 2018-06-20 13:39 | Pulmonology Progress Note ---
Assessment/Plan Assessment/Plan Assessment/Plan ASSESSMENT: The patient is a 68-year-old male prison resident with acute on chronic hypoxemic hypercapnic respiratory failure, bilateral infiltrates, likely recurrent healthcare-associated pneumonia, dementia, CVA, dysphagia, hypertension, and CAD. CT of the chest demonstrates e/o chronic lung disease with bilateral tree-in-bud opacities, reticulonodular infiltrates and bronchiectasis PROBLEM LIST: 1. Multifocal pneumonia, healthcare-associated pneumonia. 2. B reticulonodular infiltrates in a tree-in-bud appearance, suggestive of an infectious bronchiolitis, i.e. BISI, and bronchiectasis 3. shelter resident. 4. Dementia/CVA. 5. Dysphagia. 6. Hypertension, CAD. 7. Protein albumin discordance. TREATMENT PLAN: 1. Breticulonodular infiltrates in a tree in bud appearance is usually indicative of an infectious bronchiolitis, i.e. BISI. We sent off serologies. Given that he is DNAR/DNI and that he would be unlikely to tolerate BISI therapy (@ least 18 months of REC) I feel the risks of bronchoscopy outweigh any potential benefits. 2. Abx (J LUIS) per ID. F/U serologies, CX and AFB (NOT FOR MTB but for BISI) 3. Optimize pulmonary hygiene/mobilize as tolerated. 4. Titrate down FiO2 to keep saturations greater than 90%. 5. P.r.n. BiPAP. 6. PRN and PRN HHN's 7. Mucomyst HHN's 8. CPT 9. Aspiration precautions, cautious tube feeds. 10. Monitor volumes and renal function. 11. Wound care, wound vac, surgery recs 12. Heparin subcutaneous for DVT prophylaxis. 12. DNR/DNI. Discussed case at length tonight with the patient's daughter, Belinda Rivero. She is concerned that his current quality of life is unacceptable and would like to avoid further hospitalizations. We discussed many options, including hospice care, which would be most appropriate. She inquired about him returning to his SNF on hospice (once optimized). I told her that Dr. Zhou will discuss the plan with her further tommorrow and could likely facilitate that but that I agree that SNF with hospice would be most appropriate given the overall goals of care. Extended visit 60 min Subjective Allergies: Coded Allergies: CEFTRIAXONE (Verified Allergy, Unknown, 04/04/18) Subjective AFVSS, O2 needs stable Has wound vac + cough + SOB no F/C Objective Vital Signs Noted General Appearance: cachetic HEENT: normocephalic, atraumatic, anicteric, mucous membranes moist Respiratory/Chest: rhonchi Cardiovascular: normal peripheral pulses, normal rate, regular rhythm Abdomen: normal bowel sounds, soft, non tender, no organomegaly, non distended , other - GT Extremities: no cyanosis, no clubbing, no edema, other - contracted Microbiology Date/Time Source Procedure Growth Status 06/17/18 21:00 Sputum Expectorated Gram Stain - Final Resulted 06/17/18 21:00 Sputum Expectorated Sputum Culture Pending Resulted 06/16/18 23:00 Hip Left Gram Stain - Final Resulted 06/16/18 23:00 Wound Culture - Preliminary Gram Positive Cocci Resulted 06/16/18 23:00 Sacral Wound Gram Stain - Final Resulted 06/16/18 23:00 Wound Culture - Preliminary Gram Negative Bacillus 1 Gram Negative Bacillus 2 Gram Positive Cocci Resulted Laboratory Tests 06/19/18 07:30: Coccidioides Antibody (Comp Fix) [Pending] Current Medications Medications (Trade) Dose Ordered Sig/Briseida Route PRN Reason Start Time Stop Time Status Last Admin Dose Admin Acetaminophen (Tylenol) 650 mg Q4H PRN GT Mild Pain/Temp > 100.5 06/17/18 07:00 07/17/18 06:59 06/17/18 23:40 Acetylcysteine (Mucomyst) 100 mg TIDRT HHN 06/18/18 19:00 07/18/18 18:59 06/19/18 14:15 Albuterol/ Ipratropium (Albuterol/ Ipratropium) 3 ml Q4H PRN HHN Shortness of Breath 06/17/18 15:45 06/22/18 15:44 Albuterol/ Ipratropium (Albuterol/ Ipratropium) 3 ml Q6HRT HHN 06/17/18 19:00 06/22/18 18:59 06/19/18 14:15 Ascorbic Acid (Vitamin C) 500 mg BID GT 06/17/18 09:00 07/17/18 08:59 06/19/18 18:13 Aspirin (ASA) 81 mg DAILY GT 06/17/18 09:00 07/17/18 08:59 06/19/18 10:02 Dextrose (Dextrose 50%) 25 ml Q30M PRN IV Hypoglycemia 06/16/18 18:45 07/16/18 18:44 Dextrose (Dextrose 50%) 50 ml Q30M PRN IV Hypoglycemia 06/16/18 18:45 07/16/18 18:44 Diltiazem HCl (Cardizem) 30 mg EVERY 8 HOURS GT 06/18/18 06:00 07/18/18 05:59 06/19/18 13:55 Donepezil HCl (Aricept) 10 mg BEDTIME GT 06/16/18 21:00 07/16/18 20:59 06/18/18 21:27 Heparin Sodium (Porcine) (Heparin 5000 units/ml) 5,000 units EVERY 12 HOURS SUBQ 06/17/18 21:00 07/17/18 20:59 06/19/18 10:03 Insulin Aspart (NovoLOG) Q6HR SUBQ 06/17/18 00:00 07/16/18 20:59 06/19/18 18:24 Lansoprazole (Prevacid) 30 mg BID GT 06/17/18 18:00 07/17/18 17:59 06/19/18 18:13 Meropenem 1 gm/ Sodium Chloride 55 ml @ 110 mls/hr Q8H IVPB 06/17/18 10:00 06/22/18 09:59 06/19/18 18:13 Quetiapine Fumarate (SEROquel) 12.5 mg Q4H PRN ORAL For Anxiety 06/17/18 13:15 07/17/18 13:14 Sitagliptin Phosphate (Januvia) 100 mg DAILY GT 06/17/18 09:00 07/17/18 08:59 06/19/18 10:02 Zinc Sulfate (Zinc Sulfate) 220 mg DAILY GT 06/17/18 09:00 07/17/18 08:59 06/19/18 10:02 Subjective ROS Limited/Unobtainable: No Allergies: Coded Allergies: CEFTRIAXONE (Verified Allergy, Unknown, 04/04/18) Objective Last 24 Hour Vital Signs Date Time Temp Pulse Resp B/P (MAP) Pulse Ox O2 Delivery O2 Flow Rate FiO2 06/20/18 12:00 97.8 87 20 115/58 (77) 100 06/20/18 08:00 91 06/20/18 08:00 97.9 87 20 108/67 (81) 100 06/20/18 07:55 Nasal Cannula 2.0 06/20/18 07:34 98 Nasal Cannula 3.0 32 06/20/18 07:34 Nasal Cannula 3.0 32 06/20/18 07:33 95 20 99 Nasal Cannula 3.0 32 06/20/18 07:24 84 18 98 Nasal Cannula 3.0 32 06/20/18 05:32 91 123/78 06/20/18 04:00 97.0 96 20 123/78 (93) 100 06/20/18 04:00 91 06/20/18 01:25 92 20 98 Nasal Cannula 3.0 32 06/20/18 01:09 100 20 98 Nasal Cannula 3.0 32 06/20/18 00:00 97.0 98 20 121/75 (90) 96 06/20/18 00:00 100 06/19/18 21:17 95 20 98 Nasal Cannula 3.0 32 06/19/18 21:08 92 20 98 Nasal Cannula 3.0 32 06/19/18 21:08 Nasal Cannula 3.0 32 06/19/18 21:07 98 Nasal Cannula 3.0 32 06/19/18 21:07 92 134/79 06/19/18 21:00 Nasal Cannula 2.0 06/19/18 20:00 98.5 97 20 134/79 (97) 97 06/19/18 20:00 92 06/19/18 16:00 97.1 85 20 118/74 (89) 100 06/19/18 16:00 87 06/19/18 14:25 72 18 98 Nasal Cannula 3.0 32 06/19/18 14:15 83 20 98 Nasal Cannula 3.0 32 06/19/18 13:55 78 112/59 Intake and Output 06/19/18 06/20/18 19:00 07:00 Intake Total 85 ml 720 ml Output Total 500 ml Balance -415 ml 720 ml Intake Free Water 30 ml 60 ml IV Total 55 ml Tube Feeding 55 ml 605 ml Output Urine Total 500 ml Microbiology Date/Time Source Procedure Growth Status 06/17/18 21:00 Sputum Expectorated Gram Stain - Final Resulted 06/17/18 21:00 Sputum Expectorated Sputum Culture - Preliminary Resulted Laboratory Tests 06/20/18 04:49: White Blood Count 7.6, Red Blood Count 3.44L, Hemoglobin 9.0L, Hematocrit 29.0L , Mean Corpuscular Volume 84, Mean Corpuscular Hemoglobin 26.1L, Mean Corpuscular Hemoglobin Concent 31.0L, Red Cell Distribution Width 15.6H, Platelet Count 360, Mean Platelet Volume 7.7, Neutrophils (%) (Auto) 68.5, Lymphocytes (%) (Auto) 17.2L, Monocytes (%) (Auto) 5.0, Eosinophils (%) (Auto) 8.5H, Basophils (%) (Auto) 0.8, Sodium Level 140, Potassium Level 4.6, Chloride Level 104, Carbon Dioxide Level 35H, Anion Gap 1L, Blood Urea Nitrogen 22H, Creatinine 0.6, Estimat Glomerular Filtration Rate > 60, Glucose Level 184H, Hemoglobin A1c 7.4H, Uric Acid 1.9L, Calcium Level 8.9, Phosphorus Level 2.1L, Magnesium Level 2.2, Total Bilirubin 0.3, Gamma Glutamyl Transpeptidase 15, Aspartate Amino Transf (AST/SGOT) 19, Alanine Aminotransferase (ALT/SGPT) 20, Alkaline Phosphatase 146H, Troponin I 0.000, C-Reactive Protein, Quantitative 9.5H, Pro-B-Type Natriuretic Peptide 359H, Total Protein 9.5H, Albumin 2.8L, Globulin 6.7, Albumin/Globulin Ratio 0.4L, Vitamin B12 Level 1158H Current Medications Medications (Trade) Dose Ordered Sig/Briseida Route PRN Reason Start Time Stop Time Status Last Admin Dose Admin Acetaminophen (Tylenol) 650 mg Q4H PRN GT Mild Pain/Temp > 100.5 06/17/18 07:00 07/17/18 06:59 06/17/18 23:40 Acetylcysteine (Mucomyst) 100 mg TIDRT HHN 06/18/18 19:00 07/18/18 18:59 06/20/18 07:32 Albuterol/ Ipratropium (Albuterol/ Ipratropium) 3 ml Q4H PRN HHN Shortness of Breath 06/17/18 15:45 06/22/18 15:44 Albuterol/ Ipratropium (Albuterol/ Ipratropium) 3 ml Q6HRT HHN 06/17/18 19:00 06/22/18 18:59 06/20/18 07:32 Ascorbic Acid (Vitamin C) 500 mg BID GT 06/17/18 09:00 07/17/18 08:59 06/20/18 08:19 Aspirin (ASA) 81 mg DAILY GT 06/17/18 09:00 07/17/18 08:59 06/20/18 08:19 Dextrose (Dextrose 50%) 25 ml Q30M PRN IV Hypoglycemia 06/16/18 18:45 07/16/18 18:44 Dextrose (Dextrose 50%) 50 ml Q30M PRN IV Hypoglycemia 06/16/18 18:45 07/16/18 18:44 Diltiazem HCl (Cardizem) 30 mg EVERY 8 HOURS GT 06/18/18 06:00 07/18/18 05:59 06/20/18 05:32 Donepezil HCl (Aricept) 10 mg BEDTIME GT 06/16/18 21:00 07/16/18 20:59 06/19/18 21:04 Heparin Sodium (Porcine) (Heparin 5000 units/ml) 5,000 units EVERY 12 HOURS SUBQ 06/17/18 21:00 07/17/18 20:59 06/20/18 08:21 Insulin Aspart (NovoLOG) Q6HR SUBQ 06/17/18 00:00 07/16/18 20:59 06/20/18 11:53 Lansoprazole (Prevacid) 30 mg BID GT 06/17/18 18:00 07/17/18 17:59 06/20/18 08:19 Meropenem 1 gm/ Sodium Chloride 55 ml @ 110 mls/hr Q8H IVPB 06/17/18 10:00 06/22/18 09:59 06/20/18 11:01 Phosphorus (Phospha 250 Neutral) 250 mg BID ORAL 06/20/18 10:00 07/20/18 09:59 06/20/18 10:31 Quetiapine Fumarate (SEROquel) 12.5 mg Q4H PRN ORAL For Anxiety 06/17/18 13:15 07/17/18 13:14 Sitagliptin Phosphate (Januvia) 100 mg DAILY GT 06/17/18 09:00 12/6/18 08:59 06/20/18 08:20 Vancomycin HCl (Vanco rx to dose) 1 ea DAILY PRN MISC Per rx protocol 06/20/18 12:45 07/20/18 12:44 Vancomycin HCl/ Dextrose 250 ml @ 166.667 mls/hr ONCE ONCE IVPB 06/20/18 14:00 06/20/18 15:29 Vancomycin/Sodium Chloride 250 ml @ 166.667 mls/hr Q12HR@0200,1400 IVPB 06/21/18 02:00 06/26/18 01:59 Zinc Sulfate (Zinc Sulfate) 220 mg DAILY GT 06/17/18 09:00 07/17/18 08:59 06/20/18 08:19 Nikko Franklin MD Jun 20, 2018 13:39
[2018-06-20] MEDS ORDERED: Vancomycin 1250mg/D5W 250ml IVPB ONE (14:00)
[2018-06-20 16:00] VITALS: BP 102/58
[2018-06-20 20:00] VITALS: BP 106/56
--- NOTE | 2018-06-20 21:16 | Progress Note ---
DATE: 06/20/2018 SUBJECTIVE: The patient is in no acute distress. She has episodes of anxiety. She has impairment of memory, concentration, and attention. Waxing and waning consciousness. Not able to be engaged and answer the questions appropriately. MENTAL STATUS EXAMINATION: The patient is confused and disoriented. Mood is neutral. Affect is flat. There is paucity of thought content. Cognition is impaired. ASSESSMENT: Encephalopathy, dementia. PLAN: We will continue the current medication. Continue to follow and readjust the medications. Shawn Meza M.D. DR: Jan JOB#: [id number] CC:
[2018-06-20] MEDS: Donepezil 5mg Tab GT SCH (21:17)
--- NOTE | 2018-06-20 21:28 | General Progress Note ---
Assessment/Plan Problem List: (1) UTI (urinary tract infection) ICD Codes: N39.0 - Urinary tract infection, site not specified SNOMED: 39446477 (2) PNA (pneumonia) ICD Codes: J18.9 - Pneumonia, unspecified organism SNOMED: 155584646 (3) Sacral decubitus ulcer, stage IV ICD Codes: L89.154 - Pressure ulcer of sacral region, stage 4 SNOMED: 386070070, 753793076 (4) Cachexia ICD Codes: R64 - Cachexia SNOMED: 036922687 (5) Acute renal failure ICD Codes: N17.9 - Acute kidney failure, unspecified SNOMED: 21897822 (6) Decubitus skin ulcer ICD Codes: L89.90 - Pressure ulcer of unspecified site, unspecified stage SNOMED: 884284922 Status: progressing Assessment/Plan sepsis abx per id no fever sacral decub pna and sepsis cachexia severe malnutrition Subjective ROS Limited/Unobtainable: Yes Allergies: Coded Allergies: CEFTRIAXONE (Verified Allergy, Unknown, 04/04/18) Objective Last 24 Hour Vital Signs Date Time Temp Pulse Resp B/P (MAP) Pulse Ox O2 Delivery O2 Flow Rate FiO2 06/20/18 20:38 87 20 99 Nasal Cannula 3.0 32 06/20/18 20:27 81 20 100 Nasal Cannula 3.0 32 06/20/18 20:27 100 Nasal Cannula 3.0 32 06/20/18 20:27 Nasal Cannula 3.0 32 06/20/18 20:00 97.7 88 20 106/56 (73) 99 06/20/18 16:00 96.3 70 20 102/58 (73) 97 06/20/18 16:00 89 06/20/18 14:08 88 115/58 06/20/18 13:44 88 20 99 Nasal Cannula 3.0 32 06/20/18 13:38 78 20 98 Nasal Cannula 3.0 32 06/20/18 12:00 87 06/20/18 12:00 97.8 87 20 115/58 (77) 100 06/20/18 08:00 91 06/20/18 08:00 97.9 87 20 108/67 (81) 100 06/20/18 07:55 Nasal Cannula 2.0 06/20/18 07:34 98 Nasal Cannula 3.0 32 06/20/18 07:34 Nasal Cannula 3.0 32 06/20/18 07:33 95 20 99 Nasal Cannula 3.0 32 06/20/18 07:24 84 18 98 Nasal Cannula 3.0 32 06/20/18 05:32 91 123/78 06/20/18 04:00 97.0 96 20 123/78 (93) 100 06/20/18 04:00 91 06/20/18 01:25 92 20 98 Nasal Cannula 3.0 32 06/20/18 01:09 100 20 98 Nasal Cannula 3.0 32 06/20/18 00:00 97.0 98 20 121/75 (90) 96 06/20/18 00:00 100 Intake and Output 06/19/18 06/20/18 19:00 07:00 Intake Total 85 ml 720 ml Output Total 500 ml Balance -415 ml 720 ml Intake Free Water 30 ml 60 ml IV Total 55 ml Tube Feeding 55 ml 605 ml Output Urine Total 500 ml Laboratory Tests 06/20/18 04:49: White Blood Count 7.6, Red Blood Count 3.44L, Hemoglobin 9.0L, Hematocrit 29.0L , Mean Corpuscular Volume 84, Mean Corpuscular Hemoglobin 26.1L, Mean Corpuscular Hemoglobin Concent 31.0L, Red Cell Distribution Width 15.6H, Platelet Count 360, Mean Platelet Volume 7.7, Neutrophils (%) (Auto) 68.5, Lymphocytes (%) (Auto) 17.2L, Monocytes (%) (Auto) 5.0, Eosinophils (%) (Auto) 8.5H, Basophils (%) (Auto) 0.8, Sodium Level 140, Potassium Level 4.6, Chloride Level 104, Carbon Dioxide Level 35H, Anion Gap 1L, Blood Urea Nitrogen 22H, Creatinine 0.6, Estimat Glomerular Filtration Rate > 60, Glucose Level 184H, Hemoglobin A1c 7.4H, Uric Acid 1.9L, Calcium Level 8.9, Phosphorus Level 2.1L, Magnesium Level 2.2, Total Bilirubin 0.3, Gamma Glutamyl Transpeptidase 15, Aspartate Amino Transf (AST/SGOT) 19, Alanine Aminotransferase (ALT/SGPT) 20, Alkaline Phosphatase 146H, Troponin I 0.000, C-Reactive Protein, Quantitative 9.5H, Pro-B-Type Natriuretic Peptide 359H, Total Protein 9.5H, Albumin 2.8L, Globulin 6.7, Albumin/Globulin Ratio 0.4L, Vitamin B12 Level 1158H Height (Feet): 5 Height (Inches): 6.00 Weight (Pounds): 133 Neck: supple Cardiovascular: normal rate Respiratory/Chest: lungs clear Abdomen: soft Jamia Wu MD Jun 20, 2018 21:28
[2018-06-21] VITALS: BP 114/69
[2018-06-21] MEDS: Albuterol/Ipratropium 3ml neb HHN SCH ×4 (01:21→19:58)
[2018-06-21] MEDS: Vancomycin 750mg/NS 250ml IVPB SCH ×2 (01:32→13:23)
[2018-06-21] MEDS: Meropenem 1 GM in NS 55 ML IVPB SCH ×3 (01:33→17:33)
[2018-06-21 04:00] VITALS: BP 129/68
[2018-06-21] MEDS: dilTIAZem HCl 30mg tab GT SCH ×3 (05:37→21:44)
[2018-06-21] MEDS: NovoLOG Insulin Flexpen SUBQ SCH ×4 (05:37→23:52)
[2018-06-21 08:00] VITALS: BP 106/64
[2018-06-21] MEDS: Ascorbic Acid 500mg tab GT SCH ×2 (09:00→17:32)
[2018-06-21] MEDS: Zinc Sulfate 220mg cap GT SCH (09:00)
[2018-06-21] MEDS: Aspirin Baby 81mg GT SCH (09:01)
[2018-06-21] MEDS: Phospha 250 Neutral tab ORAL SCH ×2 (09:01→17:32)
[2018-06-21] MEDS: Heparin 5000 units/ml inj SUBQ SCH ×2 (09:04→21:45)
[2018-06-21 09:13] LABS: BASOPHILS % (AUTO) 0.8 % (0.0-2.0); EOSINOPHILS % (AUTO) 8.4 % (0.0-3.0); HEMATOCRIT 31.2 % (42.0-52.0); HEMOGLOBIN 9.8 G/DL (14.2-18.0); LYMPHOCYTES % (AUTO) 16.8 % (20.0-45.0); MEAN CORPUSCULAR VOLUME 85 FL (80-99); MONOCYTES % (AUTO) 4.8 % (1.0-10.0); NEUTROPHILS % (AUTO) 69.2 % (45.0-75.0); PLATELET COUNT 380 K/UL (150-450); RED BLOOD COUNT 3.69 M/UL (4.70-6.10); RED CELL DISTRIBUTION WIDTH 16.7 % (11.6-14.8); WHITE BLOOD COUNT 8.6 K/UL (4.8-10.8)
[2018-06-21 09:37] LABS: ALANINE AMINOTRANSFERASE 24 U/L (12-78); ALBUMIN 2.5 G/DL (3.4-5.0); ALBUMIN/GLOBULIN RATIO 0.4 (1.0-2.7); ALKALINE PHOSPHATASE 136 U/L (46-116); ANION GAP 3 mmol/L (5-15); ASPARTATE AMINO TRANSFERASE 21 U/L (15-37); BILIRUBIN,TOTAL 0.2 MG/DL (0.2-1.0); BLOOD UREA NITROGEN 23 mg/dL (7-18); CALCIUM 9.1 MG/DL (8.5-10.1); CARBON DIOXIDE 34 MMOL/L (21-32); CHLORIDE 103 MMOL/L (98-107); CREATININE 0.6 MG/DL (0.55-1.30); POTASSIUM 4.2 MMOL/L (3.5-5.1); SODIUM 140 MMOL/L (136-145)
--- NOTE | 2018-06-21 10:08 | Nephrology Progress Note ---
Assessment/Plan Problem List: (1) Cachexia (2) Proteinuria (3) UTI (urinary tract infection) (4) Diabetes mellitus out of control Assessment (1) UTI (urinary tract infection) / Pneumonia (2) Proteinuria (3) Azotemia (4) Cachexia (5) Anemia Pneumonia- Hypoxia - Renal failure- Proteinuria- Hypoalbuminemia Anemia- UTI- Cachexia , Malnutrition- PEG- HypoTension DM Plan Plan Phos supp respiratory support- Antibiotics Monitor renal parameters hold bp meds- parameters Hold Glucophage albumin bolus per orders Subjective ROS Limited/Unobtainable: No Constitutional: Reports: malaise Objective Objective Last 24 Hour Vital Signs Date Time Temp Pulse Resp B/P (MAP) Pulse Ox O2 Delivery O2 Flow Rate FiO2 06/21/18 09:00 Nasal Cannula 2.0 06/21/18 08:00 97.7 92 20 106/64 (78) 99 06/21/18 07:08 90 20 100 Nasal Cannula 3.0 32 06/21/18 06:52 88 16 100 Nasal Cannula 3.0 32 06/21/18 06:52 100 Nasal Cannula 3.0 32 06/21/18 06:52 Nasal Cannula 3.0 32 06/21/18 05:37 81 129/68 06/21/18 04:00 97.9 85 20 129/68 (88) 100 06/21/18 04:00 81 06/21/18 01:30 88 20 100 Nasal Cannula 3.0 32 06/21/18 01:21 87 20 100 Nasal Cannula 3.0 32 06/21/18 00:00 97.7 89 20 114/69 (84) 100 06/21/18 00:00 85 06/20/18 22:00 87 106/56 06/20/18 21:00 Nasal Cannula 2.0 06/20/18 20:38 87 20 99 Nasal Cannula 3.0 32 06/20/18 20:27 81 20 100 Nasal Cannula 3.0 32 06/20/18 20:27 100 Nasal Cannula 3.0 32 06/20/18 20:27 Nasal Cannula 3.0 32 06/20/18 20:00 97.7 88 20 106/56 (73) 99 06/20/18 20:00 88 06/20/18 16:00 96.3 70 20 102/58 (73) 97 06/20/18 16:00 89 06/20/18 14:08 88 115/58 06/20/18 13:44 88 20 99 Nasal Cannula 3.0 32 06/20/18 13:38 78 20 98 Nasal Cannula 3.0 32 06/20/18 12:00 87 06/20/18 12:00 97.8 87 20 115/58 (77) 100 Intake and Output 06/20/18 06/21/18 19:00 07:00 Intake Total 850 ml 945.000 ml Output Total 1000 ml 1000 ml Balance -150 ml -55.000 ml Intake Free Water 130 ml 90 ml IV Total 110 ml 305.000 ml Tube Feeding 610 ml 550 ml Output Urine Total 1000 ml 1000 ml # Bowel Movements 1 1 Laboratory Tests 06/21/18 09:00: White Blood Count 8.6, Red Blood Count 3.69L, Hemoglobin 9.8L, Hematocrit 31.2L , Mean Corpuscular Volume 85, Mean Corpuscular Hemoglobin 26.5L, Mean Corpuscular Hemoglobin Concent 31.4L, Red Cell Distribution Width 16.7H, Platelet Count 380, Mean Platelet Volume 6.8, Neutrophils (%) (Auto) 69.2, Lymphocytes (%) (Auto) 16.8L, Monocytes (%) (Auto) 4.8, Eosinophils (%) (Auto) 8.4H, Basophils (%) (Auto) 0.8, Sodium Level 140, Potassium Level 4.2, Chloride Level 103, Carbon Dioxide Level 34H, Anion Gap 3L, Blood Urea Nitrogen 23H, Creatinine 0.6, Estimat Glomerular Filtration Rate > 60, Glucose Level 152H, Calcium Level 9.1, Total Bilirubin 0.2, Aspartate Amino Transf (AST/SGOT) 21, Alanine Aminotransferase (ALT/SGPT) 24, Alkaline Phosphatase 136H, Total Protein 9.2H, Albumin 2.5L, Globulin 6.7, Albumin/Globulin Ratio 0.4L Height (Feet): 5 Height (Inches): 6.00 Weight (Pounds): 133 General Appearance: no apparent distress Objective no change Chava Dwyer MD Jun 21, 2018 10:08
[2018-06-21 12:00] VITALS: BP 102/71
[2018-06-21] MEDS: Acetaminophen 650mg/20.3ml GT PRN (13:25)
--- NOTE | 2018-06-21 13:48 | General Surgery Progress Note ---
General Surgery-Progress Note Subjective Symptoms: improved Additional Comments no acute events. wound vac stable Objective Last 24 Hour Vital Signs Date Time Temp Pulse Resp B/P (MAP) Pulse Ox O2 Delivery O2 Flow Rate FiO2 06/21/18 13:22 90 102/51 06/21/18 12:56 81 20 100 Nasal Cannula 3.0 32 06/21/18 12:00 98.4 84 20 102/71 (81) 97 06/21/18 09:00 Nasal Cannula 2.0 06/21/18 08:00 97.7 92 20 106/64 (78) 99 06/21/18 07:08 90 20 100 Nasal Cannula 3.0 32 06/21/18 06:52 88 16 100 Nasal Cannula 3.0 32 06/21/18 06:52 100 Nasal Cannula 3.0 32 06/21/18 06:52 Nasal Cannula 3.0 32 06/21/18 05:37 81 129/68 06/21/18 04:00 97.9 85 20 129/68 (88) 100 06/21/18 04:00 81 06/21/18 01:30 88 20 100 Nasal Cannula 3.0 32 06/21/18 01:21 87 20 100 Nasal Cannula 3.0 32 06/21/18 00:00 97.7 89 20 114/69 (84) 100 06/21/18 00:00 85 06/20/18 22:00 87 106/56 06/20/18 21:00 Nasal Cannula 2.0 06/20/18 20:38 87 20 99 Nasal Cannula 3.0 32 06/20/18 20:27 81 20 100 Nasal Cannula 3.0 32 06/20/18 20:27 100 Nasal Cannula 3.0 32 06/20/18 20:27 Nasal Cannula 3.0 32 06/20/18 20:00 97.7 88 20 106/56 (73) 99 06/20/18 20:00 88 06/20/18 16:00 96.3 70 20 102/58 (73) 97 06/20/18 16:00 89 06/20/18 14:08 88 115/58 I&O Intake and Output 06/20/18 06/21/18 19:00 07:00 Intake Total 850 ml 945.000 ml Output Total 1000 ml 1000 ml Balance -150 ml -55.000 ml Intake Free Water 130 ml 90 ml IV Total 110 ml 305.000 ml Tube Feeding 610 ml 550 ml Output Urine Total 1000 ml 1000 ml # Bowel Movements 1 1 Dressing: other Wound: other Drains: wound vac Cardiovascular: RSR Respiratory: clear Abdomen: soft, non-tender, present bowel sounds Extremities: no cyanosis Laboratory Tests Test 06/21/18 09:00 White Blood Count 8.6 K/UL (4.8-10.8) Red Blood Count 3.69 M/UL (4.70-6.10) L Hemoglobin 9.8 G/DL (14.2-18.0) L Hematocrit 31.2 % (42.0-52.0) L Mean Corpuscular Volume 85 FL (80-99) Mean Corpuscular Hemoglobin 26.5 PG (27.0-31.0) L Mean Corpuscular Hemoglobin Concent 31.4 G/DL (32.0-36.0) L Red Cell Distribution Width 16.7 % (11.6-14.8) H Platelet Count 380 K/UL (150-450) Mean Platelet Volume 6.8 FL (6.5-10.1) Neutrophils (%) (Auto) 69.2 % (45.0-75.0) Lymphocytes (%) (Auto) 16.8 % (20.0-45.0) L Monocytes (%) (Auto) 4.8 % (1.0-10.0) Eosinophils (%) (Auto) 8.4 % (0.0-3.0) H Basophils (%) (Auto) 0.8 % (0.0-2.0) Sodium Level 140 MMOL/L (136-145) Potassium Level 4.2 MMOL/L (3.5-5.1) Chloride Level 103 MMOL/L (98-107) Carbon Dioxide Level 34 MMOL/L (21-32) H Anion Gap 3 mmol/L (5-15) L Blood Urea Nitrogen 23 mg/dL (7-18) H Creatinine 0.6 MG/DL (0.55-1.30) Estimat Glomerular Filtration Rate > 60 mL/min (>60) Glucose Level 152 MG/DL (74-106) H Calcium Level 9.1 MG/DL (8.5-10.1) Total Bilirubin 0.2 MG/DL (0.2-1.0) Aspartate Amino Transf (AST/SGOT) 21 U/L (15-37) Alanine Aminotransferase (ALT/SGPT) 24 U/L (12-78) Alkaline Phosphatase 136 U/L (46-116) H Total Protein 9.2 G/DL (6.4-8.2) H Albumin 2.5 G/DL (3.4-5.0) L Globulin 6.7 g/dL Albumin/Globulin Ratio 0.4 (1.0-2.7) L Plan Problems: (1) Decubitus skin ulcer (2) Sacral decubitus ulcer, stage IV Assessment & Plan: full thickness wound noted. discussed with daughter. recently had debridement at [facility]. still with 20-25% sloth and debris. daughter expressed that she would like wound cleaned as much as possible given how chronic it is. wound debrided at bedside. see note wound improving wound VAC on and functional nutritional optimization (3) Decubitus ulcer of left hip, stage 4 (4) Decubitus ulcer of right hip, stage 3 Shamar Clark Jun 21, 2018 13:48
[2018-06-21 16:00] VITALS: BP 106/60
[2018-06-21] MEDS ORDERED: D5 1/2NS 1000ml IV ONE (17:57)
[2018-06-21 20:00] VITALS: BP 114/64
--- NOTE | 2018-06-21 20:04 | Pulmonology Progress Note ---
Assessment/Plan Assessment/Plan Assessment/Plan ASSESSMENT: The patient is a 68-year-old male [facility] resident with acute on chronic hypoxemic hypercapnic respiratory failure, bilateral infiltrates, likely recurrent healthcare-associated pneumonia, dementia, CVA, dysphagia, hypertension, and CAD. CT of the chest demonstrates e/o chronic lung disease with bilateral tree-in-bud opacities, reticulonodular infiltrates and bronchiectasis PROBLEM LIST: 1. Multifocal pneumonia, healthcare-associated pneumonia. 2. B reticulonodular infiltrates in a tree-in-bud appearance, suggestive of an infectious bronchiolitis, i.e. BISI, and bronchiectasis 3. shelter resident. 4. Dementia/CVA. 5. Dysphagia. 6. Hypertension, CAD. 7. Protein albumin discordance. TREATMENT PLAN: 1. Breticulonodular infiltrates in a tree in bud appearance is usually indicative of an infectious bronchiolitis, i.e. BISI. We sent off serologies. Given that he is DNAR/DNI and that he would be unlikely to tolerate BISI therapy (@ least 18 months of REC) I feel the risks of bronchoscopy outweigh any potential benefits. 2. Abx (J LUIS) per ID. F/U serologies, CX and AFB (NOT FOR MTB but for BISI) 3. Optimize pulmonary hygiene/mobilize as tolerated. 4. Titrate down FiO2 to keep saturations greater than 90%. 5. P.r.n. BiPAP. 6. PRN and PRN HHN's 7. Mucomyst HHN's 8. CPT 9. Aspiration precautions, cautious tube feeds. 10. Monitor volumes and renal function. 11. Wound care, wound vac, surgery recs 12. Heparin subcutaneous for DVT prophylaxis. 12. DNR/DNI. Discussed case at length tonight with the patient's daughter, Belinda Rivero. She is concerned that his current quality of life is unacceptable and would like to avoid further hospitalizations. We discussed many options, including hospice care, which would be most appropriate. She inquired about him returning to his SNF on hospice (once optimized). I told her that Dr. Zhou will discuss the plan with her further tommorrow and could likely facilitate that but that I agree that SNF with hospice would be most appropriate given the overall goals of care. Extended visit 60 min Subjective Allergies: Coded Allergies: CEFTRIAXONE (Verified Allergy, Unknown, 04/04/18) Subjective AFVSS, O2 needs stable Has wound vac + cough + SOB no F/C Objective Vital Signs Noted General Appearance: cachetic HEENT: normocephalic, atraumatic, anicteric, mucous membranes moist Respiratory/Chest: rhonchi Cardiovascular: normal peripheral pulses, normal rate, regular rhythm Abdomen: normal bowel sounds, soft, non tender, no organomegaly, non distended , other - GT Extremities: no cyanosis, no clubbing, no edema, other - contracted Microbiology Date/Time Source Procedure Growth Status 06/17/18 21:00 Sputum Expectorated Gram Stain - Final Resulted 06/17/18 21:00 Sputum Expectorated Sputum Culture Pending Resulted 06/16/18 23:00 Hip Left Gram Stain - Final Resulted 06/16/18 23:00 Wound Culture - Preliminary Gram Positive Cocci Resulted 06/16/18 23:00 Sacral Wound Gram Stain - Final Resulted 06/16/18 23:00 Wound Culture - Preliminary Gram Negative Bacillus 1 Gram Negative Bacillus 2 Gram Positive Cocci Resulted Laboratory Tests 06/19/18 07:30: Coccidioides Antibody (Comp Fix) [Pending] Current Medications Medications (Trade) Dose Ordered Sig/Briseida Route PRN Reason Start Time Stop Time Status Last Admin Dose Admin Acetaminophen (Tylenol) 650 mg Q4H PRN GT Mild Pain/Temp > 100.5 06/17/18 07:00 07/17/18 06:59 06/17/18 23:40 Acetylcysteine (Mucomyst) 100 mg TIDRT HHN 06/18/18 19:00 07/18/18 18:59 06/19/18 14:15 Albuterol/ Ipratropium (Albuterol/ Ipratropium) 3 ml Q4H PRN HHN Shortness of Breath 06/17/18 15:45 06/22/18 15:44 Albuterol/ Ipratropium (Albuterol/ Ipratropium) 3 ml Q6HRT HHN 06/17/18 19:00 06/22/18 18:59 06/19/18 14:15 Ascorbic Acid (Vitamin C) 500 mg BID GT 06/17/18 09:00 07/17/18 08:59 06/19/18 18:13 Aspirin (ASA) 81 mg DAILY GT 06/17/18 09:00 07/17/18 08:59 06/19/18 10:02 Dextrose (Dextrose 50%) 25 ml Q30M PRN IV Hypoglycemia 06/16/18 18:45 07/16/18 18:44 Dextrose (Dextrose 50%) 50 ml Q30M PRN IV Hypoglycemia 06/16/18 18:45 07/16/18 18:44 Diltiazem HCl (Cardizem) 30 mg EVERY 8 HOURS GT 06/18/18 06:00 07/18/18 05:59 06/19/18 13:55 Donepezil HCl (Aricept) 10 mg BEDTIME GT 06/16/18 21:00 07/16/18 20:59 06/18/18 21:27 Heparin Sodium (Porcine) (Heparin 5000 units/ml) 5,000 units EVERY 12 HOURS SUBQ 06/17/18 21:00 07/17/18 20:59 06/19/18 10:03 Insulin Aspart (NovoLOG) Q6HR SUBQ 06/17/18 00:00 07/16/18 20:59 06/19/18 18:24 Lansoprazole (Prevacid) 30 mg BID GT 06/17/18 18:00 07/17/18 17:59 06/19/18 18:13 Meropenem 1 gm/ Sodium Chloride 55 ml @ 110 mls/hr Q8H IVPB 06/17/18 10:00 06/22/18 09:59 06/19/18 18:13 Quetiapine Fumarate (SEROquel) 12.5 mg Q4H PRN ORAL For Anxiety 06/17/18 13:15 07/17/18 13:14 Sitagliptin Phosphate (Januvia) 100 mg DAILY GT 06/17/18 09:00 07/17/18 08:59 06/19/18 10:02 Zinc Sulfate (Zinc Sulfate) 220 mg DAILY GT 06/17/18 09:00 07/17/18 08:59 06/19/18 10:02 Subjective ROS Limited/Unobtainable: No Allergies: Coded Allergies: CEFTRIAXONE (Verified Allergy, Unknown, 04/04/18) Objective Last 24 Hour Vital Signs Date Time Temp Pulse Resp B/P (MAP) Pulse Ox O2 Delivery O2 Flow Rate FiO2 06/21/18 16:00 97.0 84 20 106/60 (75) 99 06/21/18 16:00 85 06/21/18 13:22 90 102/51 06/21/18 13:10 89 22 100 Nasal Cannula 3.0 32 06/21/18 12:56 81 20 100 Nasal Cannula 3.0 32 06/21/18 12:00 81 06/21/18 12:00 98.4 84 20 102/71 (81) 97 06/21/18 09:00 Nasal Cannula 2.0 06/21/18 08:00 97.7 92 20 106/64 (78) 99 06/21/18 07:08 90 20 100 Nasal Cannula 3.0 32 06/21/18 06:52 88 16 100 Nasal Cannula 3.0 32 06/21/18 06:52 100 Nasal Cannula 3.0 32 06/21/18 06:52 Nasal Cannula 3.0 32 06/21/18 05:37 81 129/68 06/21/18 04:00 97.9 85 20 129/68 (88) 100 06/21/18 04:00 81 06/21/18 01:30 88 20 100 Nasal Cannula 3.0 32 06/21/18 01:21 87 20 100 Nasal Cannula 3.0 32 06/21/18 00:00 97.7 89 20 114/69 (84) 100 06/21/18 00:00 85 06/20/18 22:00 87 106/56 06/20/18 21:00 Nasal Cannula 2.0 06/20/18 20:38 87 20 99 Nasal Cannula 3.0 32 06/20/18 20:27 81 20 100 Nasal Cannula 3.0 32 06/20/18 20:27 100 Nasal Cannula 3.0 32 06/20/18 20:27 Nasal Cannula 3.0 32 Intake and Output 06/20/18 06/21/18 19:00 07:00 Intake Total 850 ml 945.000 ml Output Total 1000 ml 1000 ml Balance -150 ml -55.000 ml Intake Free Water 130 ml 90 ml IV Total 110 ml 305.000 ml Tube Feeding 610 ml 550 ml Output Urine Total 1000 ml 1000 ml # Bowel Movements 1 1 Microbiology Date/Time Source Procedure Growth Status 06/20/18 05:00 Sputum AFB Specimen Processing Tissue - Final Resulted 06/20/18 05:00 Sputum Acid Fast Bacilli Smear - Final Resulted 06/20/18 05:00 Sputum Acid Fast Bacilli Culture Pending Resulted 06/19/18 01:40 Sputum AFB Specimen Processing Tissue - Final Resulted 06/19/18 01:40 Sputum Acid Fast Bacilli Smear - Final Resulted 06/19/18 01:40 Sputum Acid Fast Bacilli Culture Pending Resulted Laboratory Tests 06/21/18 09:00: White Blood Count 8.6, Red Blood Count 3.69L, Hemoglobin 9.8L, Hematocrit 31.2L , Mean Corpuscular Volume 85, Mean Corpuscular Hemoglobin 26.5L, Mean Corpuscular Hemoglobin Concent 31.4L, Red Cell Distribution Width 16.7H, Platelet Count 380, Mean Platelet Volume 6.8, Neutrophils (%) (Auto) 69.2, Lymphocytes (%) (Auto) 16.8L, Monocytes (%) (Auto) 4.8, Eosinophils (%) (Auto) 8.4H, Basophils (%) (Auto) 0.8, Sodium Level 140, Potassium Level 4.2, Chloride Level 103, Carbon Dioxide Level 34H, Anion Gap 3L, Blood Urea Nitrogen 23H, Creatinine 0.6, Estimat Glomerular Filtration Rate > 60, Glucose Level 152H, Calcium Level 9.1, Total Bilirubin 0.2, Aspartate Amino Transf (AST/SGOT) 21, Alanine Aminotransferase (ALT/SGPT) 24, Alkaline Phosphatase 136H, Total Protein 9.2H, Albumin 2.5L, Globulin 6.7, Albumin/Globulin Ratio 0.4L Current Medications Medications (Trade) Dose Ordered Sig/Briseida Route PRN Reason Start Time Stop Time Status Last Admin Dose Admin Acetaminophen (Tylenol) 650 mg Q4H PRN GT Mild Pain/Temp > 100.5 06/17/18 07:00 07/17/18 06:59 06/21/18 13:25 Acetylcysteine (Mucomyst) 100 mg TIDRT HHN 06/18/18 19:00 07/18/18 18:59 06/21/18 19:59 Albuterol/ Ipratropium (Albuterol/ Ipratropium) 3 ml Q4H PRN HHN Shortness of Breath 06/17/18 15:45 06/22/18 15:44 Albuterol/ Ipratropium (Albuterol/ Ipratropium) 3 ml Q6HRT HHN 06/17/18 19:00 06/22/18 18:59 06/21/18 19:58 Ascorbic Acid (Vitamin C) 500 mg BID GT 06/17/18 09:00 07/17/18 08:59 06/21/18 17:32 Aspirin (ASA) 81 mg DAILY GT 06/17/18 09:00 07/17/18 08:59 06/21/18 09:01 Dextrose (Dextrose 50%) 25 ml Q30M PRN IV Hypoglycemia 06/16/18 18:45 07/16/18 18:44 Dextrose (Dextrose 50%) 50 ml Q30M PRN IV Hypoglycemia 06/16/18 18:45 07/16/18 18:44 Diltiazem HCl (Cardizem) 30 mg EVERY 8 HOURS GT 06/18/18 06:00 07/18/18 05:59 06/21/18 05:37 Donepezil HCl (Aricept) 10 mg BEDTIME GT 06/16/18 21:00 07/16/18 20:59 06/20/18 21:17 Heparin Sodium (Porcine) (Heparin 5000 units/ml) 5,000 units EVERY 12 HOURS SUBQ 06/17/18 21:00 07/17/18 20:59 06/21/18 09:04 Insulin Aspart (NovoLOG) Q6HR SUBQ 06/17/18 00:00 07/16/18 20:59 06/21/18 17:44 Lansoprazole (Prevacid) 30 mg BID GT 06/17/18 18:00 07/17/18 17:59 06/21/18 17:32 Meropenem 1 gm/ Sodium Chloride 55 ml @ 110 mls/hr Q8H IVPB 06/17/18 10:00 06/22/18 09:59 06/21/18 17:33 Phosphorus (Phospha 250 Neutral) 250 mg BID ORAL 06/20/18 10:00 07/20/18 09:59 06/21/18 17:32 Quetiapine Fumarate (SEROquel) 12.5 mg Q4H PRN ORAL For Anxiety 06/17/18 13:15 07/17/18 13:14 Sitagliptin Phosphate (Januvia) 100 mg DAILY GT 06/17/18 09:00 07/17/18 08:59 06/21/18 09:01 Vancomycin HCl (Vanco rx to dose) 1 ea DAILY PRN MISC Per rx protocol 06/20/18 12:45 07/20/18 12:44 Vancomycin/Sodium Chloride 250 ml @ 166.667 mls/hr Q12HR@0200,1400 IVPB 06/21/18 02:00 06/26/18 01:59 06/21/18 13:23 Zinc Sulfate (Zinc Sulfate) 220 mg DAILY GT 06/17/18 09:00 07/17/18 08:59 06/21/18 09:00 Nikko Franklin MD Jun 21, 2018 20:04
--- NOTE | 2018-06-21 21:08 | General Progress Note ---
Assessment/Plan Problem List: (1) UTI (urinary tract infection) ICD Codes: N39.0 - Urinary tract infection, site not specified SNOMED: 59558338 (2) PNA (pneumonia) ICD Codes: J18.9 - Pneumonia, unspecified organism SNOMED: 860015785 (3) Sacral decubitus ulcer, stage IV ICD Codes: L89.154 - Pressure ulcer of sacral region, stage 4 SNOMED: 415475500, 185787455 (4) Cachexia ICD Codes: R64 - Cachexia SNOMED: 670307979 (5) Acute renal failure ICD Codes: N17.9 - Acute kidney failure, unspecified SNOMED: 99898644 (6) Decubitus skin ulcer ICD Codes: L89.90 - Pressure ulcer of unspecified site, unspecified stage SNOMED: 812022248 Status: progressing Assessment/Plan afebrile abx per id lyte wound care sacral decub pna and sepsis cachexia severe malnutrition Subjective ROS Limited/Unobtainable: Yes Allergies: Coded Allergies: CEFTRIAXONE (Verified Allergy, Unknown, 04/04/18) Objective Last 24 Hour Vital Signs Date Time Temp Pulse Resp B/P (MAP) Pulse Ox O2 Delivery O2 Flow Rate FiO2 06/21/18 20:10 95 22 100 Nasal Cannula 3.0 32 06/21/18 19:58 100 Nasal Cannula 3.0 32 06/21/18 19:58 93 18 100 Nasal Cannula 3.0 32 06/21/18 19:58 Nasal Cannula 3.0 32 06/21/18 16:00 97.0 84 20 106/60 (75) 99 06/21/18 16:00 85 06/21/18 13:22 90 102/51 06/21/18 13:10 89 22 100 Nasal Cannula 3.0 32 06/21/18 12:56 81 20 100 Nasal Cannula 3.0 32 06/21/18 12:00 81 06/21/18 12:00 98.4 84 20 102/71 (81) 97 06/21/18 09:00 Nasal Cannula 2.0 06/21/18 08:00 97.7 92 20 106/64 (78) 99 06/21/18 07:08 90 20 100 Nasal Cannula 3.0 32 06/21/18 06:52 88 16 100 Nasal Cannula 3.0 32 06/21/18 06:52 100 Nasal Cannula 3.0 32 06/21/18 06:52 Nasal Cannula 3.0 32 06/21/18 05:37 81 129/68 06/21/18 04:00 97.9 85 20 129/68 (88) 100 06/21/18 04:00 81 06/21/18 01:30 88 20 100 Nasal Cannula 3.0 32 06/21/18 01:21 87 20 100 Nasal Cannula 3.0 32 06/21/18 00:00 97.7 89 20 114/69 (84) 100 06/21/18 00:00 85 06/20/18 22:00 87 106/56 Intake and Output 06/20/18 06/21/18 19:00 07:00 Intake Total 850 ml 945.000 ml Output Total 1000 ml 1000 ml Balance -150 ml -55.000 ml Intake Free Water 130 ml 90 ml IV Total 110 ml 305.000 ml Tube Feeding 610 ml 550 ml Output Urine Total 1000 ml 1000 ml # Bowel Movements 1 1 Laboratory Tests 06/21/18 09:00: White Blood Count 8.6, Red Blood Count 3.69L, Hemoglobin 9.8L, Hematocrit 31.2L , Mean Corpuscular Volume 85, Mean Corpuscular Hemoglobin 26.5L, Mean Corpuscular Hemoglobin Concent 31.4L, Red Cell Distribution Width 16.7H, Platelet Count 380, Mean Platelet Volume 6.8, Neutrophils (%) (Auto) 69.2, Lymphocytes (%) (Auto) 16.8L, Monocytes (%) (Auto) 4.8, Eosinophils (%) (Auto) 8.4H, Basophils (%) (Auto) 0.8, Sodium Level 140, Potassium Level 4.2, Chloride Level 103, Carbon Dioxide Level 34H, Anion Gap 3L, Blood Urea Nitrogen 23H, Creatinine 0.6, Estimat Glomerular Filtration Rate > 60, Glucose Level 152H, Calcium Level 9.1, Total Bilirubin 0.2, Aspartate Amino Transf (AST/SGOT) 21, Alanine Aminotransferase (ALT/SGPT) 24, Alkaline Phosphatase 136H, Total Protein 9.2H, Albumin 2.5L, Globulin 6.7, Albumin/Globulin Ratio 0.4L Height (Feet): 5 Height (Inches): 6.00 Weight (Pounds): 133 General Appearance: confused Cardiovascular: normal rate Respiratory/Chest: normal breath sounds Abdomen: soft Jamia Wu MD Jun 21, 2018 21:08
--- NOTE | 2018-06-21 21:38 | General Progress Note ---
Assessment/Plan Status: stable Assessment/Plan #. Anemia due to underlying chronic disease. ESR was 115 prior to admission. Closely monitor for improvement. The patient has ongoing anemia, likely related to underlying decubitus ulceration. In addition to being chronically ill, bedbound, and hemoglobin, ferritin is >1000 --> transfuse if hgb <7 --> presurgery has been given 1 dose of epogen for more rapid recovery --> no hemolysis #. Hyperproteinemia. Given albumin dissociation -> spep and upep have been ordered to evaluate for spike in m-spike, appears preliminary no m-spike noted --> appreciate pulm recs --> 06/19 albuin bolus #. Hospital-acquired pneumonia. He is on broad-spectrum antibiotics. Given nasal cannula. --> abx as per ID #. Azotemia. Given fluids as needed. BUN of 35. #. Stage IV ulcerations on the left and right side. Stage IV ulcerations --> Dr. Clark aware, following #. Dysphagia, status post PEG tube. #. Febrile state. Add antibiotics as needed. #. Incontinence with a Beltran catheter in place. Beltran catheter is in place. --> uro recs as needed #. DPOA wants comfort care I appreciate the consultation. Subjective Date patient seen: Jun 21, 2018 Hematologic/Lymphatic: Reports: anemia Allergies: Coded Allergies: CEFTRIAXONE (Verified Allergy, Unknown, 04/04/18) All Systems: reviewed and negative except above Subjective Non-verbal, resting comfortably. VS stable. Objective Last 24 Hour Vital Signs Date Time Temp Pulse Resp B/P (MAP) Pulse Ox O2 Delivery O2 Flow Rate FiO2 06/21/18 20:10 95 22 100 Nasal Cannula 3.0 32 06/21/18 20:00 97.5 82 20 114/64 (81) 99 06/21/18 19:58 100 Nasal Cannula 3.0 32 06/21/18 19:58 93 18 100 Nasal Cannula 3.0 32 06/21/18 19:58 Nasal Cannula 3.0 32 06/21/18 16:00 97.0 84 20 106/60 (75) 99 06/21/18 16:00 85 06/21/18 13:22 90 102/51 06/21/18 13:10 89 22 100 Nasal Cannula 3.0 32 11/10/18 12:56 81 20 100 Nasal Cannula 3.0 32 06/21/18 12:00 81 06/21/18 12:00 98.4 84 20 102/71 (81) 97 06/21/18 09:00 Nasal Cannula 2.0 06/21/18 08:00 97.7 92 20 106/64 (78) 99 06/21/18 07:08 90 20 100 Nasal Cannula 3.0 32 06/21/18 06:52 88 16 100 Nasal Cannula 3.0 32 06/21/18 06:52 100 Nasal Cannula 3.0 32 06/21/18 06:52 Nasal Cannula 3.0 32 06/21/18 05:37 81 129/68 06/21/18 04:00 97.9 85 20 129/68 (88) 100 06/21/18 04:00 81 06/21/18 01:30 88 20 100 Nasal Cannula 3.0 32 06/21/18 01:21 87 20 100 Nasal Cannula 3.0 32 06/21/18 00:00 97.7 89 20 114/69 (84) 100 06/21/18 00:00 85 06/20/18 22:00 87 106/56 Intake and Output 06/20/18 06/21/18 19:00 07:00 Intake Total 850 ml 945.000 ml Output Total 1000 ml 1000 ml Balance -150 ml -55.000 ml Intake Free Water 130 ml 90 ml IV Total 110 ml 305.000 ml Tube Feeding 610 ml 550 ml Output Urine Total 1000 ml 1000 ml # Bowel Movements 1 1 Laboratory Tests 06/21/18 09:00: White Blood Count 8.6, Red Blood Count 3.69L, Hemoglobin 9.8L, Hematocrit 31.2L , Mean Corpuscular Volume 85, Mean Corpuscular Hemoglobin 26.5L, Mean Corpuscular Hemoglobin Concent 31.4L, Red Cell Distribution Width 16.7H, Platelet Count 380, Mean Platelet Volume 6.8, Neutrophils (%) (Auto) 69.2, Lymphocytes (%) (Auto) 16.8L, Monocytes (%) (Auto) 4.8, Eosinophils (%) (Auto) 8.4H, Basophils (%) (Auto) 0.8, Sodium Level 140, Potassium Level 4.2, Chloride Level 103, Carbon Dioxide Level 34H, Anion Gap 3L, Blood Urea Nitrogen 23H, Creatinine 0.6, Estimat Glomerular Filtration Rate > 60, Glucose Level 152H, Calcium Level 9.1, Total Bilirubin 0.2, Aspartate Amino Transf (AST/SGOT) 21, Alanine Aminotransferase (ALT/SGPT) 24, Alkaline Phosphatase 136H, Total Protein 9.2H, Albumin 2.5L, Globulin 6.7, Albumin/Globulin Ratio 0.4L Height (Feet): 5 Height (Inches): 6.00 Weight (Pounds): 133 General Appearance: no apparent distress Objective GENERAL: He is a nonverbal male, in no acute distress, +++NC HEENT: Normocephalic and atraumatic. Oropharynx is clear. NECK: Supple without lymphadenopathy. CHEST: Coarse bilateral rhonchi. HEART: Regular rhythm. ABDOMEN: Soft, nontender, nondistended. ++ peg EXTREMITIES: No cyanosis, clubbing, or edema. BACK: unstageable requiring debridement Nikolai Richards MD Jun 21, 2018 21:38
[2018-06-21] MEDS: Donepezil 5mg Tab GT SCH (21:44)
[2018-06-21] MEDS ORDERED: Albuterol/Ipratropium 3ml neb HHN PRN (23:45)
[2018-06-22 00:31] VITALS: BP 114/61
[2018-06-22] MEDS: Albuterol/Ipratropium 3ml neb HHN SCH ×4 (01:41→21:43)
[2018-06-22] MEDS ORDERED: Vancomycin 750mg/NS 250ml 250 ML IVPB SCH (02:00)
[2018-06-22] MEDS ORDERED: Meropenem 1 GM in NS 55 ML IVPB SCH (02:00)
[2018-06-22 04:00] VITALS: BP 117/68
[2018-06-22] MEDS: dilTIAZem HCl 30mg tab GT SCH ×3 (05:40→23:09)
[2018-06-22] MEDS: NovoLOG Insulin Flexpen SUBQ SCH ×4 (05:42→23:46)
[2018-06-22 08:00] VITALS: BP 120/68
[2018-06-22] MEDS: Zinc Sulfate 220mg cap GT SCH (09:04)
[2018-06-22] MEDS: Aspirin Baby 81mg GT SCH (09:04)
[2018-06-22] MEDS: Phospha 250 Neutral tab ORAL SCH ×2 (09:04→17:17)
[2018-06-22] MEDS: Heparin 5000 units/ml inj SUBQ SCH ×2 (09:06→20:14)
[2018-06-22] MEDS: Ascorbic Acid 500mg tab GT SCH ×2 (09:09→17:18)
[2018-06-22 11:57] VITALS: BP 115/59
--- NOTE | 2018-06-22 12:42 | Infectious Diseases Prog Note ---
Assessment/Plan Assessment/Plan A; Pneumonia: CT scan tree in bud opacities Try to rule MAC & Fungal infection DM Dementia Pressure ulcer Anemia P; Continue Meropenem X 2 days, Continue IV Vancomycin will f/u AFB X 3 No need for airborne isolation will f/u serum Coccidiomycosis antibody will f/u Urine Histoplasma antigen CXR Subjective ROS Limited/Unobtainable: Yes Allergies: Coded Allergies: CEFTRIAXONE (Verified Allergy, Unknown, 04/04/18) Objective Vital Signs Last 24 Hour Vital Signs Date Time Temp Pulse Resp B/P (MAP) Pulse Ox O2 Delivery O2 Flow Rate FiO2 06/22/18 11:57 98.1 76 20 115/59 (77) 100 06/22/18 09:00 Nasal Cannula 2.0 06/22/18 08:00 98.1 85 19 120/68 (85) 100 06/22/18 07:25 89 20 100 Nasal Cannula 3.0 32 06/22/18 07:24 Nasal Cannula 3.0 32 06/22/18 07:24 99 Nasal Cannula 3.0 32 06/22/18 07:20 88 20 100 Nasal Cannula 3.0 32 06/22/18 05:40 85 117/68 06/22/18 04:00 98.3 85 18 117/68 (84) 100 06/22/18 01:59 87 22 100 Nasal Cannula 3.0 32 06/22/18 01:41 85 18 100 Nasal Cannula 3.0 32 06/22/18 00:31 97.7 77 20 114/61 (78) 100 06/21/18 21:44 95 114/64 06/21/18 21:00 75 06/21/18 21:00 Nasal Cannula 2.0 06/21/18 20:10 95 22 100 Nasal Cannula 3.0 32 06/21/18 20:00 97.5 82 20 114/64 (81) 99 06/21/18 19:58 100 Nasal Cannula 3.0 32 06/21/18 19:58 93 18 100 Nasal Cannula 3.0 32 06/21/18 19:58 Nasal Cannula 3.0 32 06/21/18 16:00 97.0 84 20 106/60 (75) 99 06/21/18 16:00 85 06/21/18 13:22 90 102/51 06/21/18 13:10 89 22 100 Nasal Cannula 3.0 32 06/21/18 12:56 81 20 100 Nasal Cannula 3.0 32 Height (Feet): 5 Height (Inches): 6.00 Weight (Pounds): 147 General Appearance: no acute distress HEENT: mucous membranes moist Respiratory/Chest: rhonchi - bilaterally Cardiovascular: normal rate Abdomen: soft, non tender, other - GT feeding Extremities: no edema Skin: ulcers, other - on Wound-vac Neurologic/Psychiatric: unresponsiveness, aphasia Microbiology Date/Time Source Procedure Growth Status 06/20/18 05:00 Sputum AFB Specimen Processing Tissue - Final Resulted 06/20/18 05:00 Sputum Acid Fast Bacilli Smear - Final Resulted 06/20/18 05:00 Sputum Acid Fast Bacilli Culture Pending Resulted Laboratory Tests Test 06/22/18 01:05 Vancomycin Level Trough 12.9 ug/mL (5.0-12.0) H Current Medications Medications (Trade) Dose Ordered Sig/Briseida Route PRN Reason Start Time Stop Time Status Last Admin Dose Admin Acetaminophen (Tylenol) 650 mg Q4H PRN GT Mild Pain/Temp > 100.5 06/22/18 03:00 07/17/18 06:59 Acetylcysteine (Mucomyst) 100 mg TIDRT N 06/22/18 07:00 07/18/18 18:59 06/22/18 07:24 Albuterol/ Ipratropium (Albuterol/ Ipratropium) 3 ml Q4H PRN HHN Shortness of Breath 06/21/18 23:45 06/22/18 15:44 Albuterol/ Ipratropium (Albuterol/ Ipratropium) 3 ml Q6HRT HHN 06/22/18 01:00 06/22/18 18:59 06/22/18 07:24 Ascorbic Acid (Vitamin C) 500 mg BID GT 06/22/18 09:00 07/17/18 08:59 06/22/18 09:09 Aspirin (ASA) 81 mg DAILY GT 06/22/18 09:00 07/17/18 08:59 06/22/18 09:04 Dextrose (Dextrose 50%) 25 ml Q30M PRN IV Hypoglycemia 06/21/18 23:45 07/16/18 18:44 Dextrose (Dextrose 50%) 50 ml Q30M PRN IV Hypoglycemia 06/21/18 23:45 07/16/18 18:44 Diltiazem HCl (Cardizem) 30 mg EVERY 8 HOURS GT 06/22/18 06:00 07/18/18 05:59 06/22/18 05:40 Donepezil HCl (Aricept) 10 mg BEDTIME GT 06/22/18 21:00 07/16/18 20:59 Heparin Sodium (Porcine) (Heparin 5000 units/ml) 5,000 units EVERY 12 HOURS SUBQ 06/22/18 09:00 07/17/18 20:59 06/22/18 09:06 Insulin Aspart (NovoLOG) Q6HR SUBQ 06/22/18 00:00 07/16/18 20:59 06/22/18 12:27 Lansoprazole (Prevacid) 30 mg BID GT 06/22/18 09:00 07/17/18 17:59 06/22/18 09:04 Phosphorus (Phospha 250 Neutral) 250 mg BID ORAL 06/22/18 09:00 07/20/18 09:59 06/22/18 09:04 Quetiapine Fumarate (SEROquel) 12.5 mg Q4H PRN ORAL For Anxiety 06/22/18 01:15 07/17/18 13:14 Sitagliptin Phosphate (Januvia) 100 mg DAILY GT 06/22/18 09:00 07/17/18 08:59 06/22/18 09:04 Vancomycin HCl (Vanco rx to dose) 1 ea DAILY PRN MISC Per rx protocol 06/22/18 09:00 07/20/18 12:44 Vancomycin HCl 750 mg/Dextrose 275 ml @ 250 mls/hr Q12H IVPB 06/22/18 14:00 06/27/18 13:59 Zinc Sulfate (Zinc Sulfate) 220 mg DAILY GT 06/22/18 09:00 07/17/18 08:59 06/22/18 09:04 Herson Palmer MD Jun 22, 2018 12:42
[2018-06-22] MEDS: Meropenem 1 GM in NS 55 ML IVPB SCH ×2 (14:15→23:09)
[2018-06-22] MEDS: Vancomycin 750 MG in D5W 275 ML IVPB SCH (14:49)
--- NOTE | 2018-06-22 15:11 | Nephrology Progress Note ---
Assessment/Plan Problem List: (1) Cachexia (2) Proteinuria (3) UTI (urinary tract infection) (4) Diabetes mellitus out of control Assessment (1) UTI (urinary tract infection) / Pneumonia (2) Proteinuria (3) Azotemia (4) Cachexia (5) Anemia Pneumonia- Hypoxia - Renal failure- Proteinuria- Hypoalbuminemia Anemia- UTI- Cachexia , Malnutrition- PEG- HypoTension DM Plan Plan Phos supp respiratory support- Antibiotics Monitor renal parameters hold bp meds- parameters Hold Glucophage albumin bolus per orders Subjective ROS Limited/Unobtainable: No Objective Objective Last 24 Hour Vital Signs Date Time Temp Pulse Resp B/P (MAP) Pulse Ox O2 Delivery O2 Flow Rate FiO2 06/22/18 14:14 88 115/59 06/22/18 12:48 88 16 100 Nasal Cannula 3.0 32 06/22/18 12:42 87 18 100 Nasal Cannula 3.0 32 06/22/18 11:57 98.1 76 20 115/59 (77) 100 06/22/18 09:00 Nasal Cannula 2.0 06/22/18 08:00 98.1 85 19 120/68 (85) 100 06/22/18 07:25 89 20 100 Nasal Cannula 3.0 32 06/22/18 07:24 Nasal Cannula 3.0 32 06/22/18 07:24 99 Nasal Cannula 3.0 32 06/22/18 07:20 88 20 100 Nasal Cannula 3.0 32 06/22/18 05:40 85 117/68 06/22/18 04:00 98.3 85 18 117/68 (84) 100 06/22/18 01:59 87 22 100 Nasal Cannula 3.0 32 06/22/18 01:41 85 18 100 Nasal Cannula 3.0 32 06/22/18 00:31 97.7 77 20 114/61 (78) 100 06/21/18 21:44 95 114/64 06/21/18 21:00 75 06/21/18 21:00 Nasal Cannula 2.0 06/21/18 20:10 95 22 100 Nasal Cannula 3.0 32 06/21/18 20:00 97.5 82 20 114/64 (81) 99 06/21/18 19:58 100 Nasal Cannula 3.0 32 06/21/18 19:58 93 18 100 Nasal Cannula 3.0 32 06/21/18 19:58 Nasal Cannula 3.0 32 06/21/18 16:00 97.0 84 20 106/60 (75) 99 06/21/18 16:00 85 Intake and Output 06/21/18 06/22/18 19:00 07:00 Intake Total 1218.334 ml 845.000 ml Output Total 700 ml 1100 ml Balance 518.334 ml -255.000 ml Intake Free Water 120 ml 90 ml IV Total 498.334 ml 305.000 ml Tube Feeding 600 ml 450 ml Output Urine Total 700 ml 1100 ml # Bowel Movements 2 2 Laboratory Tests 06/22/18 01:05: Vancomycin Level Trough 12.9H Height (Feet): 5 Height (Inches): 6.00 Weight (Pounds): 147 General Appearance: no apparent distress Respiratory/Chest: decreased breath sounds Abdomen: soft Objective no change Chava Dwyer MD Jun 22, 2018 15:11
--- NOTE | 2018-06-22 15:26 | General Progress Note ---
Assessment/Plan Status: stable Assessment/Plan #. Anemia due to underlying chronic disease. ESR was 115 prior to admission. Closely monitor for improvement. The patient has ongoing anemia, likely related to underlying decubitus ulceration. In addition to being chronically ill, bedbound, and hemoglobin, ferritin is >1000 --> transfuse if hgb <7 --> presurgery has been given 1 dose of epogen for more rapid recovery --> no hemolysis #. Hyperproteinemia. Given albumin dissociation -> spep and upep have been ordered to evaluate for spike in m-spike, appears preliminary no m-spike noted --> appreciate pulm recs --> 06/19 albuin bolus #. Hospital-acquired pneumonia. He is on broad-spectrum antibiotics. Given nasal cannula. --> abx as per ID #. Azotemia. Given fluids as needed. BUN of 35. #. Stage IV ulcerations on the left and right side. Stage IV ulcerations --> Dr. Clark aware, following #. Dysphagia, status post PEG tube. #. Febrile state. Add antibiotics as needed. #. Incontinence with a Beltran catheter in place. Beltran catheter is in place. --> uro recs as needed #. DPOA wants comfort care I appreciate the consultation. Subjective Date patient seen: Jun 22, 2018 Hematologic/Lymphatic: Reports: anemia Allergies: Coded Allergies: CEFTRIAXONE (Verified Allergy, Unknown, 04/04/18) All Systems: reviewed and negative except above Subjective Pt in med surg. Non-verbal, resting in bed. H/H stable. Objective Last 24 Hour Vital Signs Date Time Temp Pulse Resp B/P (MAP) Pulse Ox O2 Delivery O2 Flow Rate FiO2 06/22/18 14:14 88 115/59 06/22/18 12:48 88 16 100 Nasal Cannula 3.0 32 06/22/18 12:42 87 18 100 Nasal Cannula 3.0 32 06/22/18 11:57 98.1 76 20 115/59 (77) 100 06/22/18 09:00 Nasal Cannula 2.0 06/22/18 08:00 98.1 85 19 120/68 (85) 100 06/22/18 07:25 89 20 100 Nasal Cannula 3.0 32 06/22/18 07:24 Nasal Cannula 3.0 32 06/22/18 07:24 99 Nasal Cannula 3.0 32 06/22/18 07:20 88 20 100 Nasal Cannula 3.0 32 06/22/18 05:40 85 117/68 06/22/18 04:00 98.3 85 18 117/68 (84) 100 06/22/18 01:59 87 22 100 Nasal Cannula 3.0 32 06/22/18 01:41 85 18 100 Nasal Cannula 3.0 32 06/22/18 00:31 97.7 77 20 114/61 (78) 100 06/21/18 21:44 95 114/64 06/21/18 21:00 75 06/21/18 21:00 Nasal Cannula 2.0 06/21/18 20:10 95 22 100 Nasal Cannula 3.0 32 06/21/18 20:00 97.5 82 20 114/64 (81) 99 06/21/18 19:58 100 Nasal Cannula 3.0 32 06/21/18 19:58 93 18 100 Nasal Cannula 3.0 32 06/21/18 19:58 Nasal Cannula 3.0 32 06/21/18 16:00 97.0 84 20 106/60 (75) 99 06/21/18 16:00 85 Intake and Output 06/21/18 06/22/18 19:00 07:00 Intake Total 1218.334 ml 845.000 ml Output Total 700 ml 1100 ml Balance 518.334 ml -255.000 ml Intake Free Water 120 ml 90 ml IV Total 498.334 ml 305.000 ml Tube Feeding 600 ml 450 ml Output Urine Total 700 ml 1100 ml # Bowel Movements 2 2 Laboratory Tests 06/22/18 01:05: Vancomycin Level Trough 12.9H Height (Feet): 5 Height (Inches): 6.00 Weight (Pounds): 147 General Appearance: no apparent distress Objective GENERAL: He is a nonverbal male, in no acute distress, +++NC HEENT: Normocephalic and atraumatic. Oropharynx is clear. NECK: Supple without lymphadenopathy. CHEST: Coarse bilateral rhonchi. HEART: Regular rhythm. ABDOMEN: Soft, nontender, nondistended. ++ peg EXTREMITIES: No cyanosis, clubbing, or edema. BACK: unstageable requiring debridement Nikolai Richards MD Jun 22, 2018 15:26
[2018-06-22 16:00] VITALS: BP 109/60
[2018-06-22] MEDS: Donepezil 5mg Tab GT SCH (20:12)
--- NOTE | 2018-06-22 20:36 | General Progress Note ---
Assessment/Plan Problem List: (1) UTI (urinary tract infection) ICD Codes: N39.0 - Urinary tract infection, site not specified SNOMED: 05550099 (2) PNA (pneumonia) ICD Codes: J18.9 - Pneumonia, unspecified organism SNOMED: 996940264 (3) Sacral decubitus ulcer, stage IV ICD Codes: L89.154 - Pressure ulcer of sacral region, stage 4 SNOMED: 472761451, 519472235 (4) Cachexia ICD Codes: R64 - Cachexia SNOMED: 918884773 (5) Acute renal failure ICD Codes: N17.9 - Acute kidney failure, unspecified SNOMED: 83012497 (6) Decubitus skin ulcer ICD Codes: L89.90 - Pressure ulcer of unspecified site, unspecified stage SNOMED: 176401060 Status: progressing Assessment/Plan nonverbal reviwed chart and labs wound care sacral decub pna and sepsis cachexia severe malnutrition Subjective ROS Limited/Unobtainable: Yes Allergies: Coded Allergies: CEFTRIAXONE (Verified Allergy, Unknown, 04/04/18) Objective Last 24 Hour Vital Signs Date Time Temp Pulse Resp B/P (MAP) Pulse Ox O2 Delivery O2 Flow Rate FiO2 06/22/18 16:00 99.1 86 20 109/60 (76) 96 06/22/18 14:14 88 115/59 06/22/18 12:48 88 16 100 Nasal Cannula 3.0 32 06/22/18 12:42 87 18 100 Nasal Cannula 3.0 32 06/22/18 11:57 98.1 76 20 115/59 (77) 100 06/22/18 09:00 Nasal Cannula 2.0 06/22/18 08:00 98.1 85 19 120/68 (85) 100 06/22/18 07:25 89 20 100 Nasal Cannula 3.0 32 06/22/18 07:24 Nasal Cannula 3.0 32 06/22/18 07:24 99 Nasal Cannula 3.0 32 06/22/18 07:20 88 20 100 Nasal Cannula 3.0 32 06/22/18 05:40 85 117/68 06/22/18 04:00 98.3 85 18 117/68 (84) 100 06/22/18 01:59 87 22 100 Nasal Cannula 3.0 32 06/22/18 01:41 85 18 100 Nasal Cannula 3.0 32 06/22/18 00:31 97.7 77 20 114/61 (78) 100 06/21/18 21:44 95 114/64 06/21/18 21:00 75 06/21/18 21:00 Nasal Cannula 2.0 Intake and Output 06/21/18 06/22/18 19:00 07:00 Intake Total 1218.334 ml 895.000 ml Output Total 700 ml 1100 ml Balance 518.334 ml -205.000 ml Intake Free Water 120 ml 90 ml IV Total 498.334 ml 305.000 ml Tube Feeding 600 ml 500 ml Output Urine Total 700 ml 1100 ml # Bowel Movements 2 2 Laboratory Tests 06/22/18 01:05: Vancomycin Level Trough 12.9H Height (Feet): 5 Height (Inches): 6.00 Weight (Pounds): 147 Neck: supple Cardiovascular: normal rate Respiratory/Chest: lungs clear Abdomen: soft Jamia Wu MD Jun 22, 2018 20:36
[2018-06-22 20:43] VITALS: BP 111/67
[2018-06-23] VITALS (7 sets, daily range): BP systolic 119–127; BP diastolic 64–95
[2018-06-23] MEDS: Vancomycin 750 MG in D5W 275 ML IVPB SCH ×2 (01:54→14:00)
[2018-06-23] MEDS: dilTIAZem HCl 30mg tab GT SCH ×3 (05:52→23:06)
[2018-06-23] MEDS: Meropenem 1 GM in NS 55 ML IVPB SCH ×3 (05:52→23:08)
[2018-06-23] MEDS: NovoLOG Insulin Flexpen SUBQ SCH ×4 (05:53→23:07)
--- NOTE | 2018-06-23 06:43 | General Progress Note ---
Assessment/Plan Assessment/Plan #. Anemia due to underlying chronic disease. ESR was 115 prior to admission. Closely monitor for improvement. The patient has ongoing anemia, likely related to underlying decubitus ulceration. In addition to being chronically ill, bedbound, and hemoglobin, ferritin is >1000 --> transfuse if hgb <7 --> presurgery has been given 1 dose of epogen for more rapid recovery --> no hemolysis has been noted --> trend cbc #. Hyperproteinemia. Given albumin dissociation --> spep and upep have been ordered to evaluate for spike in m-spike, appears preliminary no m-spike noted --> appreciate pulm recs --> 06/19 albuin bolus #. Hospital-acquired pneumonia. He is on broad-spectrum antibiotics. Given nasal cannula. --> abx as per ID #. Azotemia. Given fluids as needed. BUN of 35. --> s/p ivf #. Stage IV ulcerations on the left and right side. Stage IV ulcerations --> Dr. Clark aware, following #. Dysphagia, status post PEG tube. #. Incontinence with a Beltran catheter in place. --> Beltran catheter is in place. --> uro recs as needed #. DPOA wants comfort care I appreciate the consultation. Subjective Allergies: Coded Allergies: CEFTRIAXONE (Verified Allergy, Unknown, 04/04/18) Subjective Pt in med surg. Non-verbal, resting in bed. H/H is stable. Objective Last 24 Hour Vital Signs Date Time Temp Pulse Resp B/P (MAP) Pulse Ox O2 Delivery O2 Flow Rate FiO2 06/23/18 05:52 83 138/75 06/23/18 04:53 97.6 76 20 127/67 (87) 100 06/23/18 00:00 98.6 82 20 119/64 (82) 100 06/22/18 23:09 84 132/75 06/22/18 21:58 87 20 100 Nasal Cannula 3.0 32 06/22/18 21:44 89 20 Nasal Cannula 3.0 32 06/22/18 21:43 89 20 98 Nasal Cannula 3.0 32 06/22/18 21:42 Nasal Cannula 3.0 32 06/22/18 21:41 98 Nasal Cannula 3.0 32 06/22/18 21:20 Nasal Cannula 2.0 06/22/18 20:43 98.8 87 20 111/67 (82) 98 06/22/18 16:00 99.1 86 20 109/60 (76) 96 06/22/18 14:14 88 115/59 06/22/18 12:48 88 16 100 Nasal Cannula 3.0 32 06/22/18 12:42 87 18 100 Nasal Cannula 3.0 32 06/22/18 11:57 98.1 76 20 115/59 (77) 100 06/22/18 09:00 Nasal Cannula 2.0 06/22/18 08:00 98.1 85 19 120/68 (85) 100 06/22/18 07:25 89 20 100 Nasal Cannula 3.0 32 06/22/18 07:24 Nasal Cannula 3.0 32 06/22/18 07:24 99 Nasal Cannula 3.0 32 06/22/18 07:20 88 20 100 Nasal Cannula 3.0 32 Intake and Output 06/22/18 06/23/18 18:59 06:59 Intake Total 1060 ml 1085 ml Output Total 600 ml 700 ml Balance 460 ml 385 ml Intake Free Water 180 ml 100 ml IV Total 330 ml 385 ml Tube Feeding 550 ml 600 ml Output Urine Total 600 ml 700 ml # Bowel Movements 1 Height (Feet): 5 Height (Inches): 6.00 Weight (Pounds): 148 General Appearance: no apparent distress EENT: TMs normal Neck: normal inspection Cardiovascular: regular rhythm Respiratory/Chest: no respiratory distress Objective GENERAL: nonverbal male, in no acute distress, +++NC HEENT: Normocephalic and atraumatic. Oropharynx is clear. NECK: Supple without lymphadenopathy. CHEST: Coarse bilateral rhonchi. HEART: Regular rhythm. ABDOMEN: Soft, nontender, nondistended. ++ peg EXTREMITIES: No cyanosis, clubbing, or edema. BACK: unstageable requiring debridement : ++ Nikolai Douglas MD Jun 23, 2018 06:43
[2018-06-23] MEDS: Albuterol/Ipratropium 3ml neb HHN PRN ×3 (07:22→19:57)
[2018-06-23] MEDS: Phospha 250 Neutral tab ORAL SCH ×2 (09:07→17:59)
[2018-06-23] MEDS: Zinc Sulfate 220mg cap GT SCH (09:07)
[2018-06-23] MEDS: Ascorbic Acid 500mg tab GT SCH ×2 (09:07→17:59)
[2018-06-23] MEDS: Aspirin Baby 81mg GT SCH (09:07)
[2018-06-23] MEDS: Heparin 5000 units/ml inj SUBQ SCH ×2 (09:09→23:08)
--- NOTE | 2018-06-23 09:45 | Nephrology Progress Note ---
Assessment/Plan Problem List: (1) Cachexia (2) Proteinuria (3) UTI (urinary tract infection) (4) Diabetes mellitus out of control Assessment (1) UTI (urinary tract infection) / Pneumonia (2) Proteinuria (3) Azotemia (4) Cachexia (5) Anemia Pneumonia- Hypoxia - Renal failure- Proteinuria- Hypoalbuminemia Anemia- UTI- Cachexia , Malnutrition- PEG- HypoTension DM Plan Plan Phos supp respiratory support- Antibiotics Monitor renal parameters hold bp meds- parameters Hold Glucophage albumin bolus per orders Subjective ROS Limited/Unobtainable: No Objective Objective Last 24 Hour Vital Signs Date Time Temp Pulse Resp B/P (MAP) Pulse Ox O2 Delivery O2 Flow Rate FiO2 06/23/18 07:40 79 20 100 Nasal Cannula 3.0 32 06/23/18 07:37 98 Nasal Cannula 3.0 32 06/23/18 07:37 Nasal Cannula 3.0 32 06/23/18 07:23 36 06/23/18 07:23 85 22 100 Nasal Cannula 3.0 32 06/23/18 05:52 83 138/75 06/23/18 04:53 97.6 76 20 127/67 (87) 100 06/23/18 00:00 98.6 82 20 119/64 (82) 100 06/22/18 23:09 84 132/75 06/22/18 21:58 87 20 100 Nasal Cannula 3.0 32 06/22/18 21:44 89 20 Nasal Cannula 3.0 32 06/22/18 21:43 89 20 98 Nasal Cannula 3.0 32 06/22/18 21:42 Nasal Cannula 3.0 32 06/22/18 21:41 98 Nasal Cannula 3.0 32 06/22/18 21:20 Nasal Cannula 2.0 06/22/18 20:43 98.8 87 20 111/67 (82) 98 06/22/18 16:00 99.1 86 20 109/60 (76) 96 06/22/18 14:14 88 115/59 06/22/18 12:48 88 16 100 Nasal Cannula 3.0 32 06/22/18 12:42 87 18 100 Nasal Cannula 3.0 32 06/22/18 11:57 98.1 76 20 115/59 (77) 100 Intake and Output 06/22/18 06/23/18 18:59 06:59 Intake Total 1060 ml 1085 ml Output Total 600 ml 1375 ml Balance 460 ml -290 ml Intake Free Water 180 ml 100 ml IV Total 330 ml 385 ml Tube Feeding 550 ml 600 ml Output Urine Total 600 ml 1375 ml # Bowel Movements 1 Height (Feet): 5 Height (Inches): 6.00 Weight (Pounds): 148 General Appearance: no apparent distress, lethargic Cardiovascular: normal rate Respiratory/Chest: decreased breath sounds Abdomen: soft Objective no change Chava Dwyer MD Jun 23, 2018 09:45
--- NOTE | 2018-06-23 10:56 | Infectious Diseases Prog Note ---
Assessment/Plan Assessment/Plan antibiotics : vancomycin iv, meropenem A 1. pneumonia sputum AFB negative x 3, cocci, histo pending 2. diabetes mellitus 3. dementia 4. sacral decubitus ulcer s/p debridement P 1. continue iv vancomycin, meropenem 2. will follow up cultures, serologies Subjective ROS Limited/Unobtainable: Yes Allergies: Coded Allergies: CEFTRIAXONE (Verified Allergy, Unknown, 04/04/18) Objective Vital Signs Last 24 Hour Vital Signs Date Time Temp Pulse Resp B/P (MAP) Pulse Ox O2 Delivery O2 Flow Rate FiO2 06/23/18 09:00 Nasal Cannula 2.0 06/23/18 08:00 97.5 76 20 125/70 (88) 99 06/23/18 07:40 79 20 100 Nasal Cannula 3.0 32 06/23/18 07:37 98 Nasal Cannula 3.0 32 06/23/18 07:37 Nasal Cannula 3.0 32 06/23/18 07:23 36 06/23/18 07:23 85 22 100 Nasal Cannula 3.0 32 06/23/18 05:52 83 138/75 06/23/18 04:53 97.6 76 20 127/67 (87) 100 06/23/18 00:00 98.6 82 20 119/64 (82) 100 06/22/18 23:09 84 132/75 06/22/18 21:58 87 20 100 Nasal Cannula 3.0 32 06/22/18 21:44 89 20 Nasal Cannula 3.0 32 06/22/18 21:43 89 20 98 Nasal Cannula 3.0 32 06/22/18 21:42 Nasal Cannula 3.0 32 06/22/18 21:41 98 Nasal Cannula 3.0 32 06/22/18 21:20 Nasal Cannula 2.0 06/22/18 20:43 98.8 87 20 111/67 (82) 98 06/22/18 16:00 99.1 86 20 109/60 (76) 96 06/22/18 14:14 88 115/59 06/22/18 12:48 88 16 100 Nasal Cannula 3.0 32 06/22/18 12:42 87 18 100 Nasal Cannula 3.0 32 06/22/18 11:57 98.1 76 20 115/59 (77) 100 Height (Feet): 5 Height (Inches): 6.00 Weight (Pounds): 148 Respiratory/Chest: lungs clear Cardiovascular: normal rate, regular rhythm, no gallop/murmur Abdomen: soft, non tender, other - GT Extremities: no edema Skin: ulcers - on sacrum and left trochanter clean Microbiology Date/Time Source Procedure Growth Status 06/21/18 05:00 Sputum AFB Specimen Processing Tissue - Final Resulted 06/21/18 05:00 Sputum Acid Fast Bacilli Smear - Final Resulted 06/21/18 05:00 Sputum Acid Fast Bacilli Culture Pending Resulted Current Medications Medications (Trade) Dose Ordered Sig/Briseida Route PRN Reason Start Time Stop Time Status Last Admin Dose Admin Acetaminophen (Tylenol) 650 mg Q4H PRN GT Mild Pain/Temp > 100.5 06/22/18 03:00 07/17/18 06:59 Acetylcysteine (Mucomyst) 100 mg TIDRT HHN 06/22/18 07:00 07/18/18 18:59 06/23/18 07:22 Albuterol/ Ipratropium (Albuterol/ Ipratropium) 3 ml Q4H PRN HHN Shortness of Breath 06/23/18 01:45 06/28/18 01:44 06/23/18 07:22 Ascorbic Acid (Vitamin C) 500 mg BID GT 06/22/18 09:00 07/17/18 08:59 06/23/18 09:07 Aspirin (ASA) 81 mg DAILY GT 06/22/18 09:00 07/17/18 08:59 06/23/18 09:07 Dextrose (Dextrose 50%) 25 ml Q30M PRN IV Hypoglycemia 06/21/18 23:45 07/16/18 18:44 Dextrose (Dextrose 50%) 50 ml Q30M PRN IV Hypoglycemia 06/21/18 23:45 07/16/18 18:44 Diltiazem HCl (Cardizem) 30 mg EVERY 8 HOURS GT 06/22/18 06:00 07/18/18 05:59 06/23/18 05:52 Donepezil HCl (Aricept) 10 mg BEDTIME GT 06/22/18 21:00 07/16/18 20:59 06/22/18 20:12 Heparin Sodium (Porcine) (Heparin 5000 units/ml) 5,000 units EVERY 12 HOURS SUBQ 06/22/18 09:00 07/17/18 20:59 06/23/18 09:09 Insulin Aspart (NovoLOG) Q6HR SUBQ 06/22/18 00:00 07/16/18 20:59 06/23/18 05:53 Lansoprazole (Prevacid) 30 mg BID GT 06/22/18 09:00 07/17/18 17:59 06/23/18 09:07 Meropenem 1 gm/ Sodium Chloride 55 ml @ 110 mls/hr Q8HR IVPB 06/22/18 14:00 06/27/18 13:59 06/23/18 05:52 Phosphorus (Phospha 250 Neutral) 250 mg BID ORAL 06/22/18 09:00 07/20/18 09:59 06/23/18 09:07 Quetiapine Fumarate (SEROquel) 12.5 mg Q4H PRN ORAL For Anxiety 06/22/18 01:15 07/17/18 13:14 Sitagliptin Phosphate (Januvia) 100 mg DAILY GT 06/22/18 09:00 07/17/18 08:59 06/23/18 09:07 Vancomycin HCl (Vanco rx to dose) 1 ea DAILY PRN MISC Per rx protocol 06/22/18 09:00 07/20/18 12:44 Vancomycin HCl 750 mg/Dextrose 275 ml @ 250 mls/hr Q12H IVPB 06/22/18 14:00 06/27/18 13:59 06/23/18 01:54 Zinc Sulfate (Zinc Sulfate) 220 mg DAILY GT 06/22/18 09:00 07/17/18 08:59 06/23/18 09:07 Roscoe Torres MD Jun 23, 2018 10:56
--- NOTE | 2018-06-23 10:59 | Diagnostic Imaging Report ---
Indication: Shortness of breath Technique: One view of the chest Comparison: 06/16/2018 Findings: Bilateral interstitial and airspace disease, predominantly the former, is again demonstrated, perhaps slightly less extensive than on the previous study. There is slight blunting of the right costophrenic sulcus, unchanged. The left pleural space is probably clear. Heart size is normal. Impression: Bilateral interstitial and airspace disease, likely reflecting combination of chronic and acute changes, appearing slightly improved since prior study of 06/16/2018 Possible small right pleural effusion
--- NOTE | 2018-06-23 15:19 | Pulmonology Progress Note ---
Assessment/Plan Assessment/Plan Assessment/Plan ASSESSMENT: The patient is a 68-[facility]-old male [facility] resident with acute on chronic hypoxemic hypercapnic respiratory failure, bilateral infiltrates, likely recurrent healthcare-associated pneumonia, dementia, CVA, dysphagia, hypertension, and CAD. CT of the chest demonstrates e/o chronic lung disease with bilateral tree-in-bud opacities, reticulonodular infiltrates and bronchiectasis PROBLEM LIST: 1. Multifocal pneumonia, healthcare-associated pneumonia. 2. B reticulonodular infiltrates in a tree-in-bud appearance, suggestive of an infectious bronchiolitis, i.e. BISI, and bronchiectasis 3. care home resident. 4. Dementia/CVA. 5. Dysphagia. 6. Hypertension, CAD. 7. Protein albumin discordance. TREATMENT PLAN: 1. Breticulonodular infiltrates in a tree in bud appearance is usually indicative of an infectious bronchiolitis, i.e. BISI. We sent off serologies. Given that he is DNAR/DNI and that he would be unlikely to tolerate BISI therapy (@ least 18 months of REC) I feel the risks of bronchoscopy outweigh any potential benefits. 2. Abx (J LUIS) per ID. F/U serologies, CX and AFB (NOT FOR MTB but for BISI) 3. Optimize pulmonary hygiene/mobilize as tolerated. 4. Titrate down FiO2 to keep saturations greater than 90%. 5. P.r.n. BiPAP. 6. PRN and PRN HHN's 7. Mucomyst HHN's 8. CPT 9. Aspiration precautions, cautious tube feeds. 10. Monitor volumes and renal function. 11. Wound care, wound vac, surgery recs 12. Heparin subcutaneous for DVT prophylaxis. 12. DNR/DNI. Discussed case at length tonight with the patient's daughter, Belinda Rivero. She is concerned that his current quality of life is unacceptable and would like to avoid further hospitalizations. We discussed many options, including hospice care, which would be most appropriate. She inquired about him returning to his SNF on hospice (once optimized). I told her that Dr. Zhou will discuss the plan with her further tommorrow and could likely facilitate that but that I agree that SNF with hospice would be most appropriate given the overall goals of care. Extended visit 60 min Subjective Allergies: Coded Allergies: CEFTRIAXONE (Verified Allergy, Unknown, 04/04/18) Subjective AFVSS, O2 needs stable Has wound vac + cough + SOB no F/C Objective Vital Signs Noted General Appearance: cachetic HEENT: normocephalic, atraumatic, anicteric, mucous membranes moist Respiratory/Chest: rhonchi Cardiovascular: normal peripheral pulses, normal rate, regular rhythm Abdomen: normal bowel sounds, soft, non tender, no organomegaly, non distended , other - GT Extremities: no cyanosis, no clubbing, no edema, other - contracted CXR: 06/23/2018 Impression: Bilateral interstitial and airspace disease, likely reflecting combination of chronic and acute changes, appearing slightly improved since prior study of 06/16/2018 icrobiology Date/Time Source Procedure Growth Status 06/17/18 21:00 Sputum Expectorated Gram Stain - Final Resulted 06/17/18 21:00 Sputum Expectorated Sputum Culture Pending Resulted 06/16/18 23:00 Hip Left Gram Stain - Final Resulted 06/16/18 23:00 Wound Culture - Preliminary Gram Positive Cocci Resulted 06/16/18 23:00 Sacral Wound Gram Stain - Final Resulted 06/16/18 23:00 Wound Culture - Preliminary Gram Negative Bacillus 1 Gram Negative Bacillus 2 Gram Positive Cocci Resulted Laboratory Tests 06/19/18 07:30: Coccidioides Antibody (Comp Fix) [Pending] Current Medications Medications (Trade) Dose Ordered Sig/Briseida Route PRN Reason Start Time Stop Time Status Last Admin Dose Admin Acetaminophen (Tylenol) 650 mg Q4H PRN GT Mild Pain/Temp > 100.5 06/17/18 07:00 07/17/18 06:59 06/17/18 23:40 Acetylcysteine (Mucomyst) 100 mg TIDRT HHN 06/18/18 19:00 07/18/18 18:59 06/19/18 14:15 Albuterol/ Ipratropium (Albuterol/ Ipratropium) 3 ml Q4H PRN HHN Shortness of Breath 06/17/18 15:45 06/22/18 15:44 Albuterol/ Ipratropium (Albuterol/ Ipratropium) 3 ml Q6HRT HHN 06/17/18 19:00 06/22/18 18:59 06/19/18 14:15 Ascorbic Acid (Vitamin C) 500 mg BID GT 06/17/18 09:00 07/17/18 08:59 06/19/18 18:13 Aspirin (ASA) 81 mg DAILY GT 06/17/18 09:00 07/17/18 08:59 06/19/18 10:02 Dextrose (Dextrose 50%) 25 ml Q30M PRN IV Hypoglycemia 06/16/18 18:45 07/16/18 18:44 Dextrose (Dextrose 50%) 50 ml Q30M PRN IV Hypoglycemia 06/16/18 18:45 07/16/18 18:44 Diltiazem HCl (Cardizem) 30 mg EVERY 8 HOURS GT 06/18/18 06:00 07/18/18 05:59 06/19/18 13:55 Donepezil HCl (Aricept) 10 mg BEDTIME GT 06/16/18 21:00 07/16/18 20:59 06/18/18 21:27 Heparin Sodium (Porcine) (Heparin 5000 units/ml) 5,000 units EVERY 12 HOURS SUBQ 06/17/18 21:00 07/17/18 20:59 06/19/18 10:03 Insulin Aspart (NovoLOG) Q6HR SUBQ 06/17/18 00:00 07/16/18 20:59 06/19/18 18:24 Lansoprazole (Prevacid) 30 mg BID GT 06/17/18 18:00 07/17/18 17:59 06/19/18 18:13 Meropenem 1 gm/ Sodium Chloride 55 ml @ 110 mls/hr Q8H IVPB 06/17/18 10:00 06/22/18 09:59 06/19/18 18:13 Quetiapine Fumarate (SEROquel) 12.5 mg Q4H PRN ORAL For Anxiety 06/17/18 13:15 07/17/18 13:14 Sitagliptin Phosphate (Januvia) 100 mg DAILY GT 06/17/18 09:00 07/17/18 08:59 06/19/18 10:02 Zinc Sulfate (Zinc Sulfate) 220 mg DAILY GT 06/17/18 09:00 07/17/18 08:59 06/19/18 10:02 Subjective ROS Limited/Unobtainable: No Allergies: Coded Allergies: CEFTRIAXONE (Verified Allergy, Unknown, 04/04/18) Objective Last 24 Hour Vital Signs Date Time Temp Pulse Resp B/P (MAP) Pulse Ox O2 Delivery O2 Flow Rate FiO2 06/23/18 13:43 85 24 100 Nasal Cannula 3.0 32 06/23/18 13:32 78 20 100 Nasal Cannula 3.0 32 06/23/18 13:32 36 06/23/18 13:06 76 120/69 06/23/18 12:00 97.8 76 19 120/69 (86) 98 06/23/18 09:00 Nasal Cannula 2.0 06/23/18 08:00 97.5 76 20 125/70 (88) 99 06/23/18 07:40 79 20 100 Nasal Cannula 3.0 32 06/23/18 07:37 98 Nasal Cannula 3.0 32 06/23/18 07:37 Nasal Cannula 3.0 32 06/23/18 07:23 36 06/23/18 07:23 85 22 100 Nasal Cannula 3.0 32 06/23/18 05:52 83 138/75 06/23/18 04:53 97.6 76 20 127/67 (87) 100 06/23/18 00:00 98.6 82 20 119/64 (82) 100 06/22/18 23:09 84 132/75 06/22/18 21:58 87 20 100 Nasal Cannula 3.0 32 06/22/18 21:44 89 20 Nasal Cannula 3.0 32 06/22/18 21:43 89 20 98 Nasal Cannula 3.0 32 06/22/18 21:42 Nasal Cannula 3.0 32 06/22/18 21:41 98 Nasal Cannula 3.0 32 06/22/18 21:20 Nasal Cannula 2.0 06/22/18 20:43 98.8 87 20 111/67 (82) 98 06/22/18 16:00 99.1 86 20 109/60 (76) 96 Intake and Output 06/22/18 06/23/18 19:00 07:00 Intake Total 1060 ml 1035 ml Output Total 600 ml 1375 ml Balance 460 ml -340 ml Intake Free Water 180 ml 100 ml IV Total 330 ml 385 ml Tube Feeding 550 ml 550 ml Output Urine Total 600 ml 1375 ml # Bowel Movements 1 Microbiology Date/Time Source Procedure Growth Status 06/21/18 05:00 Sputum AFB Specimen Processing Tissue - Final Resulted 06/21/18 05:00 Sputum Acid Fast Bacilli Smear - Final Resulted 06/21/18 05:00 Sputum Acid Fast Bacilli Culture Pending Resulted Current Medications Medications (Trade) Dose Ordered Sig/Briseida Route PRN Reason Start Time Stop Time Status Last Admin Dose Admin Acetaminophen (Tylenol) 650 mg Q4H PRN GT Mild Pain/Temp > 100.5 06/22/18 03:00 07/17/18 06:59 Acetylcysteine (Mucomyst) 100 mg TIDRT HHN 06/22/18 07:00 07/18/18 18:59 06/23/18 13:42 Albuterol/ Ipratropium (Albuterol/ Ipratropium) 3 ml Q4H PRN HHN Shortness of Breath 06/23/18 01:45 06/28/18 01:44 06/23/18 13:42 Ascorbic Acid (Vitamin C) 500 mg BID GT 06/22/18 09:00 07/17/18 08:59 06/23/18 09:07 Aspirin (ASA) 81 mg DAILY GT 06/22/18 09:00 07/17/18 08:59 06/23/18 09:07 Dextrose (Dextrose 50%) 25 ml Q30M PRN IV Hypoglycemia 06/21/18 23:45 07/16/18 18:44 Dextrose (Dextrose 50%) 50 ml Q30M PRN IV Hypoglycemia 06/21/18 23:45 07/16/18 18:44 Diltiazem HCl (Cardizem) 30 mg EVERY 8 HOURS GT 06/22/18 06:00 07/18/18 05:59 06/23/18 13:06 Donepezil HCl (Aricept) 10 mg BEDTIME GT 06/22/18 21:00 07/16/18 20:59 06/22/18 20:12 Heparin Sodium (Porcine) (Heparin 5000 units/ml) 5,000 units EVERY 12 HOURS SUBQ 06/22/18 09:00 07/17/18 20:59 06/23/18 09:09 Insulin Aspart (NovoLOG) Q6HR SUBQ 06/22/18 00:00 07/16/18 20:59 06/23/18 13:06 Lansoprazole (Prevacid) 30 mg BID GT 06/22/18 09:00 07/17/18 17:59 06/23/18 09:07 Meropenem 1 gm/ Sodium Chloride 55 ml @ 110 mls/hr Q8HR IVPB 06/22/18 14:00 06/27/18 13:59 06/23/18 13:07 Phosphorus (Phospha 250 Neutral) 250 mg BID ORAL 06/22/18 09:00 07/20/18 09:59 06/23/18 09:07 Quetiapine Fumarate (SEROquel) 12.5 mg Q4H PRN ORAL For Anxiety 06/22/18 01:15 07/17/18 13:14 Sitagliptin Phosphate (Januvia) 100 mg DAILY GT 06/22/18 09:00 07/17/18 08:59 06/23/18 09:07 Vancomycin HCl (Vanco rx to dose) 1 ea DAILY PRN MISC Per rx protocol 06/22/18 09:00 07/20/18 12:44 Vancomycin HCl 750 mg/Dextrose 275 ml @ 250 mls/hr Q12H IVPB 06/22/18 14:00 06/27/18 13:59 06/23/18 14:00 Zinc Sulfate (Zinc Sulfate) 220 mg DAILY GT 06/22/18 09:00 07/17/18 08:59 06/23/18 09:07 Nikko Franklin MD Jun 23, 2018 15:19
[2018-06-23] MEDS ORDERED: NS 275ml ONE (17:37)
--- NOTE | 2018-06-23 20:56 | General Progress Note ---
Assessment/Plan Problem List: (1) UTI (urinary tract infection) ICD Codes: N39.0 - Urinary tract infection, site not specified SNOMED: 05092046 (2) PNA (pneumonia) ICD Codes: J18.9 - Pneumonia, unspecified organism SNOMED: 958677466 (3) Sacral decubitus ulcer, stage IV ICD Codes: L89.154 - Pressure ulcer of sacral region, stage 4 SNOMED: 724535101, 245003149 (4) Cachexia ICD Codes: R64 - Cachexia SNOMED: 854510272 (5) Acute renal failure ICD Codes: N17.9 - Acute kidney failure, unspecified SNOMED: 30003165 (6) Decubitus skin ulcer ICD Codes: L89.90 - Pressure ulcer of unspecified site, unspecified stage SNOMED: 312857120 Status: progressing Assessment/Plan abx per id afabrile wound care sacral decub pna and sepsis cachexia severe malnutrition Subjective ROS Limited/Unobtainable: Yes Allergies: Coded Allergies: CEFTRIAXONE (Verified Allergy, Unknown, 04/04/18) Objective Last 24 Hour Vital Signs Date Time Temp Pulse Resp B/P (MAP) Pulse Ox O2 Delivery O2 Flow Rate FiO2 06/23/18 20:12 87 24 100 Nasal Cannula 3.0 32 06/23/18 20:00 97.7 84 19 121/95 (104) 100 06/23/18 19:58 83 20 100 Nasal Cannula 3.0 32 06/23/18 19:58 36 06/23/18 19:58 Nasal Cannula 3.0 32 06/23/18 19:57 100 Nasal Cannula 3.0 32 06/23/18 16:00 98.0 72 20 125/72 (89) 97 06/23/18 13:43 85 24 100 Nasal Cannula 3.0 32 06/23/18 13:32 78 20 100 Nasal Cannula 3.0 32 06/23/18 13:32 36 06/23/18 13:06 76 120/69 06/23/18 12:00 97.8 76 19 120/69 (86) 98 06/23/18 09:00 Nasal Cannula 2.0 06/23/18 08:00 97.5 76 20 125/70 (88) 99 06/23/18 07:40 79 20 100 Nasal Cannula 3.0 32 06/23/18 07:37 98 Nasal Cannula 3.0 32 06/23/18 07:37 Nasal Cannula 3.0 32 06/23/18 07:23 36 06/23/18 07:23 85 22 100 Nasal Cannula 3.0 32 06/23/18 05:52 83 138/75 06/23/18 04:53 97.6 76 20 127/67 (87) 100 06/23/18 00:00 98.6 82 20 119/64 (82) 100 06/22/18 23:09 84 132/75 06/22/18 21:58 87 20 100 Nasal Cannula 3.0 06/22/18 21:44 89 20 Nasal Cannula 3.0 06/22/18 21:43 89 20 98 Nasal Cannula 3.0 06/22/18 21:42 Nasal Cannula 3.0 06/22/18 21:41 98 Nasal Cannula 3.0 06/22/18 21:20 Nasal Cannula 2.0 Intake and Output 06/22/18 06/23/18 19:00 07:00 Intake Total 1060 ml 1085 ml Output Total 600 ml 1375 ml Balance 460 ml -290 ml Intake Free Water 180 ml 100 ml IV Total 330 ml 385 ml Tube Feeding 550 ml 600 ml Output Urine Total 600 ml 1375 ml # Bowel Movements 1 Height (Feet): 5 Height (Inches): 6.00 Weight (Pounds): 148 General Appearance: confused Respiratory/Chest: lungs clear Abdomen: soft Jamia Wu MD Jun 23, 2018 20:56
[2018-06-23] MEDS: Donepezil 5mg Tab GT SCH (23:06)
[2018-06-24] VITALS: BP 121/67
--- NOTE | 2018-06-24 00:24 | General Progress Note ---
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 Assessment/Plan Seroquel prn provided ro/st Subjective Date patient seen: Jun 23, 2018 Neurologic/Psychiatric: Reports: anxiety, depressed, emotional problems Allergies: Coded Allergies: CEFTRIAXONE (Verified Allergy, Unknown, 04/04/18) Subjective the pt is non-verbal has episodes of agitation Objective Last 24 Hour Vital Signs Date Time Temp Pulse Resp B/P (MAP) Pulse Ox O2 Delivery O2 Flow Rate FiO2 06/23/18 23:06 87 121/95 06/23/18 20:12 87 24 100 Nasal Cannula 3.0 32 06/23/18 20:00 97.7 84 19 121/95 (104) 100 06/23/18 19:58 83 20 100 Nasal Cannula 3.0 32 06/23/18 19:58 36 06/23/18 19:58 Nasal Cannula 3.0 32 06/23/18 19:57 100 Nasal Cannula 3.0 32 06/23/18 16:00 98.0 72 20 125/72 (89) 97 06/23/18 13:43 85 24 100 Nasal Cannula 3.0 32 06/23/18 13:32 78 20 100 Nasal Cannula 3.0 32 06/23/18 13:32 36 06/23/18 13:06 76 120/69 06/23/18 12:00 97.8 76 19 120/69 (86) 98 06/23/18 09:00 Nasal Cannula 2.0 06/23/18 08:00 97.5 76 20 125/70 (88) 99 06/23/18 07:40 79 20 100 Nasal Cannula 3.0 32 06/23/18 07:37 98 Nasal Cannula 3.0 32 06/23/18 07:37 Nasal Cannula 3.0 32 06/23/18 07:23 36 06/23/18 07:23 85 22 100 Nasal Cannula 3.0 32 06/23/18 05:52 83 138/75 06/23/18 04:53 97.6 76 20 127/67 (87) 100 Intake and Output 06/23/18 06/24/18 18:59 06:59 Intake Total 1110 ml Output Total 600 ml Balance 510 ml Intake Free Water 180 ml IV Total 330 ml Tube Feeding 600 ml Output Urine Total 600 ml # Bowel Movements 1 Height (Feet): 5 Height (Inches): 6.00 Weight (Pounds): 148 Shawn Meza MD Jun 24, 2018 00:24
[2018-06-24] MEDS: Vancomycin 750 MG in D5W 275 ML IVPB SCH (02:19)
[2018-06-24 04:00] VITALS: BP 128/73
[2018-06-24] MEDS: Meropenem 1 GM in NS 55 ML IVPB SCH (05:57)
[2018-06-24] MEDS: dilTIAZem HCl 30mg tab GT SCH ×3 (05:58→21:26)
[2018-06-24] MEDS: NovoLOG Insulin Flexpen SUBQ SCH ×4 (05:59→23:09)
[2018-06-24] MEDS: Albuterol/Ipratropium 3ml neb HHN PRN ×3 (07:58→19:32)
[2018-06-24 08:45] VITALS: BP 110/78
[2018-06-24] MEDS: Aspirin Baby 81mg GT SCH (10:44)
[2018-06-24] MEDS: Ascorbic Acid 500mg tab GT SCH ×2 (10:50→17:44)
[2018-06-24] MEDS: Zinc Sulfate 220mg cap GT SCH (10:51)
[2018-06-24] MEDS: Phospha 250 Neutral tab ORAL SCH ×2 (10:51→17:44)
[2018-06-24] MEDS: Heparin 5000 units/ml inj SUBQ SCH ×2 (10:55→21:49)
[2018-06-24 12:15] VITALS: BP 106/57
--- NOTE | 2018-06-24 13:02 | Infectious Diseases Prog Note ---
Assessment/Plan Assessment/Plan A; Pneumonia: CT scan tree in bud opacities Try to rule MAC & Fungal infection DM Dementia Pressure ulcer Anemia MRSA & Acinetobacter colonization P; discontinue Meropenem , Change IV Vancomycin to PO Minocycline AFB smears X 3 are negative No need for airborne isolation will f/u serum Coccidiomycosis antibody will f/u Urine Histoplasma antigen CXR Subjective ROS Limited/Unobtainable: Yes Allergies: Coded Allergies: CEFTRIAXONE (Verified Allergy, Unknown, 04/04/18) Objective Vital Signs Last 24 Hour Vital Signs Date Time Temp Pulse Resp B/P (MAP) Pulse Ox O2 Delivery O2 Flow Rate FiO2 06/24/18 12:37 77 18 100 Nasal Cannula 3.0 32 06/24/18 12:30 36 06/24/18 12:30 75 20 98 Nasal Cannula 3.0 32 06/24/18 12:15 97.9 75 18 106/57 (73) 100 06/24/18 09:00 Nasal Cannula 2.0 06/24/18 08:47 Nasal Cannula 2.0 06/24/18 08:45 97.4 72 18 110/78 (89) 99 06/24/18 07:59 100 Nasal Cannula 3.0 32 06/24/18 07:59 78 20 100 Nasal Cannula 3.0 32 06/24/18 07:59 Nasal Cannula 3.0 32 06/24/18 07:46 36 06/24/18 07:46 76 22 100 Nasal Cannula 3.0 32 06/24/18 05:58 74 128/73 06/24/18 04:00 97.8 74 18 128/73 (91) 100 06/24/18 00:00 98.0 84 18 121/67 (85) 99 06/23/18 23:06 87 121/95 06/23/18 21:00 Nasal Cannula 2.0 06/23/18 21:00 Nasal Cannula 2.0 06/23/18 20:12 87 24 100 Nasal Cannula 3.0 32 06/23/18 20:00 97.7 84 19 121/95 (104) 100 06/23/18 19:58 83 20 100 Nasal Cannula 3.0 32 06/23/18 19:58 36 06/23/18 19:58 Nasal Cannula 3.0 32 06/23/18 19:57 100 Nasal Cannula 3.0 32 06/23/18 16:00 98.0 72 20 125/72 (89) 97 06/23/18 13:43 85 24 100 Nasal Cannula 3.0 32 06/23/18 13:32 78 20 100 Nasal Cannula 3.0 32 06/23/18 13:32 36 06/23/18 13:06 76 120/69 Height (Feet): 5 Height (Inches): 6.00 Weight (Pounds): 146 General Appearance: no acute distress HEENT: mucous membranes moist Respiratory/Chest: lungs clear Cardiovascular: normal rate Abdomen: soft, non tender, other - GT feeding Extremities: no edema, other - finger clubbing Neurologic/Psychiatric: aphasia Current Medications Medications (Trade) Dose Ordered Sig/Briseida Route PRN Reason Start Time Stop Time Status Last Admin Dose Admin Acetaminophen (Tylenol) 650 mg Q4H PRN GT Mild Pain/Temp > 100.5 06/22/18 03:00 07/17/18 06:59 Acetylcysteine (Mucomyst) 100 mg TIDRT HHN 06/22/18 07:00 07/18/18 18:59 06/24/18 12:28 Albuterol/ Ipratropium (Albuterol/ Ipratropium) 3 ml Q4H PRN HHN Shortness of Breath 06/23/18 01:45 06/28/18 01:44 06/24/18 12:28 Ascorbic Acid (Vitamin C) 500 mg BID GT 06/22/18 09:00 07/17/18 08:59 06/24/18 10:50 Aspirin (ASA) 81 mg DAILY GT 06/22/18 09:00 07/17/18 08:59 06/24/18 10:44 Dextrose (Dextrose 50%) 25 ml Q30M PRN IV Hypoglycemia 06/21/18 23:45 07/16/18 18:44 Dextrose (Dextrose 50%) 50 ml Q30M PRN IV Hypoglycemia 06/21/18 23:45 07/16/18 18:44 Diltiazem HCl (Cardizem) 30 mg EVERY 8 HOURS GT 06/22/18 06:00 07/18/18 05:59 06/24/18 05:58 Donepezil HCl (Aricept) 10 mg BEDTIME GT 06/22/18 21:00 07/16/18 20:59 06/23/18 23:06 Heparin Sodium (Porcine) (Heparin 5000 units/ml) 5,000 units EVERY 12 HOURS SUBQ 06/22/18 09:00 07/17/18 20:59 06/24/18 10:55 Insulin Aspart (NovoLOG) Q6HR SUBQ 06/22/18 00:00 07/16/18 20:59 06/24/18 12:35 Lansoprazole (Prevacid) 30 mg BID GT 06/22/18 09:00 07/17/18 17:59 06/24/18 10:48 Meropenem 1 gm/ Sodium Chloride 55 ml @ 110 mls/hr Q8HR IVPB 06/22/18 14:00 06/27/18 13:59 06/24/18 05:57 Phosphorus (Phospha 250 Neutral) 250 mg BID ORAL 06/22/18 09:00 07/20/18 09:59 06/24/18 10:51 Quetiapine Fumarate (SEROquel) 12.5 mg Q4H PRN ORAL For Anxiety 06/22/18 01:15 07/17/18 13:14 Sitagliptin Phosphate (Januvia) 100 mg DAILY GT 06/22/18 09:00 07/17/18 08:59 06/24/18 10:46 Vancomycin HCl (Vanco rx to dose) 1 ea DAILY PRN MISC Per rx protocol 06/22/18 09:00 07/20/18 12:44 Vancomycin HCl 750 mg/Dextrose 275 ml @ 250 mls/hr Q12H IVPB 06/22/18 14:00 06/27/18 13:59 06/24/18 02:19 Zinc Sulfate (Zinc Sulfate) 220 mg DAILY GT 06/22/18 09:00 07/17/18 08:59 06/24/18 10:51 Herson Palmer MD Jun 24, 2018 13:02
--- NOTE | 2018-06-24 13:09 | General Surgery Progress Note ---
General Surgery-Progress Note Subjective Symptoms: improved, tolerating diet, passing flatus Objective Last 24 Hour Vital Signs Date Time Temp Pulse Resp B/P (MAP) Pulse Ox O2 Delivery O2 Flow Rate FiO2 06/24/18 12:37 77 18 100 Nasal Cannula 3.0 32 06/24/18 12:30 36 06/24/18 12:30 75 20 98 Nasal Cannula 3.0 32 06/24/18 12:15 97.9 75 18 106/57 (73) 100 06/24/18 09:00 Nasal Cannula 2.0 06/24/18 08:47 Nasal Cannula 2.0 06/24/18 08:45 97.4 72 18 110/78 (89) 99 06/24/18 07:59 100 Nasal Cannula 3.0 32 06/24/18 07:59 78 20 100 Nasal Cannula 3.0 32 06/24/18 07:59 Nasal Cannula 3.0 32 06/24/18 07:46 36 06/24/18 07:46 76 22 100 Nasal Cannula 3.0 32 06/24/18 05:58 74 128/73 06/24/18 04:00 97.8 74 18 128/73 (91) 100 06/24/18 00:00 98.0 84 18 121/67 (85) 99 06/23/18 23:06 87 121/95 06/23/18 21:00 Nasal Cannula 2.0 06/23/18 21:00 Nasal Cannula 2.0 06/23/18 20:12 87 24 100 Nasal Cannula 3.0 32 06/23/18 20:00 97.7 84 19 121/95 (104) 100 06/23/18 19:58 83 20 100 Nasal Cannula 3.0 32 06/23/18 19:58 36 06/23/18 19:58 Nasal Cannula 3.0 32 06/23/18 19:57 100 Nasal Cannula 3.0 32 06/23/18 16:00 98.0 72 20 125/72 (89) 97 06/23/18 13:43 85 24 100 Nasal Cannula 3.0 32 06/23/18 13:32 78 20 100 Nasal Cannula 3.0 32 06/23/18 13:32 36 I&O Intake and Output 06/23/18 06/24/18 18:59 06:59 Intake Total 1110 ml 1125 ml Output Total 600 ml 20 ml Balance 510 ml 1105 ml Intake Free Water 180 ml 140 ml IV Total 330 ml 385 ml Tube Feeding 600 ml 600 ml Output Urine Total 600 ml Drainage Total 20 ml # Bowel Movements 1 Dressing: other Wound: other Drains: wound vac Cardiovascular: RSR Respiratory: clear Abdomen: soft, flat, non-tender, present bowel sounds Extremities: other Plan Problems: (1) Decubitus skin ulcer (2) Sacral decubitus ulcer, stage IV Assessment & Plan: full thickness wound noted. discussed with daughter. recently had debridement at [facility] still with 20-25% sloth and debris. daughter expressed that she would like wound cleaned as much as possible given how chronic it is. wound debrided at bedside. see note wound improving wound VAC on and functional nutritional optimization doing well and much improved. okay to d/c from surgical standpoint would prefer to have VAC once transferred. for transfer remove VAC and place zerofoam and gauze dressing. replace VAC once in facility change VAC as per wound care team in facility (3) Decubitus ulcer of left hip, stage 4 (4) Decubitus ulcer of right hip, stage 3 Shamar Clark Jun 24, 2018 13:09
[2018-06-24] MEDS ORDERED: Silver Nitrate Stick TOPIC ONE (13:30)
--- NOTE | 2018-06-24 14:38 | Pulmonology Progress Note ---
Assessment/Plan Assessment/Plan Assessment/Plan ASSESSMENT: The patient is a 68-year-old [facility] with acute on chronic hypoxemic hypercapnic respiratory failure, bilateral infiltrates, likely recurrent healthcare-associated pneumonia, dementia, CVA, dysphagia, hypertension, and CAD. CT of the chest demonstrates e/o chronic lung disease with bilateral tree-in-bud opacities, reticulonodular infiltrates and bronchiectasis PROBLEM LIST: 1. Multifocal pneumonia, healthcare-associated pneumonia. 2. B reticulonodular infiltrates in a tree-in-bud appearance, suggestive of an infectious bronchiolitis, i.e. BISI, and bronchiectasis 3. senior living resident. 4. Dementia/CVA. 5. Dysphagia. 6. Hypertension, CAD. 7. Protein albumin discordance. TREATMENT PLAN: 1. Breticulonodular infiltrates in a tree in bud appearance is usually indicative of an infectious bronchiolitis, i.e. BISI. We sent off serologies. Given that he is DNAR/DNI and that he would be unlikely to tolerate BISI therapy (@ least 18 months of REC) I feel the risks of bronchoscopy outweigh any potential benefits. 2. Abx (J LUIS) per ID. F/U serologies, CX and AFB (NOT FOR MTB but for BISI) 3. Optimize pulmonary hygiene/mobilize as tolerated. 4. Titrate down FiO2 to keep saturations greater than 90%. 5. P.r.n. BiPAP. 6. PRN and PRN HHN's 7. Mucomyst HHN's 8. CPT 9. Aspiration precautions, cautious tube feeds. 10. Monitor volumes and renal function. 11. Wound care, wound vac, surgery recs 12. Heparin subcutaneous for DVT prophylaxis. 12. DNR/DNI. Discussed case at length tonight with the patient's daughter, Belinda Rivero. She is concerned that his current quality of life is unacceptable and would like to avoid further hospitalizations. We discussed many options, including hospice care, which would be most appropriate. She inquired about him returning to his SNF on hospice (once optimized). I told her that Dr. Zhou will discuss the plan with her further tommorrow and could likely facilitate that but that I agree that SNF with hospice would be most appropriate given the overall goals of care. Extended visit 60 min Subjective Allergies: Coded Allergies: CEFTRIAXONE (Verified Allergy, Unknown, 04/04/18) Subjective AFVSS, O2 needs stable Has wound vac + cough + SOB no F/C Objective Vital Signs Noted General Appearance: cachetic HEENT: normocephalic, atraumatic, anicteric, mucous membranes moist Respiratory/Chest: rhonchi Cardiovascular: normal peripheral pulses, normal rate, regular rhythm Abdomen: normal bowel sounds, soft, non tender, no organomegaly, non distended , other - GT Extremities: no cyanosis, no clubbing, no edema, other - contracted CXR: 06/23/2018 Impression: Bilateral interstitial and airspace disease, likely reflecting combination of chronic and acute changes, appearing slightly improved since prior study of 06/16/2018 icrobiology Date/Time Source Procedure Growth Status 06/17/18 21:00 Sputum Expectorated Gram Stain - Final Resulted 06/17/18 21:00 Sputum Expectorated Sputum Culture Pending Resulted 06/16/18 23:00 Hip Left Gram Stain - Final Resulted 06/16/18 23:00 Wound Culture - Preliminary Gram Positive Cocci Resulted 06/16/18 23:00 Sacral Wound Gram Stain - Final Resulted 06/16/18 23:00 Wound Culture - Preliminary Gram Negative Bacillus 1 Gram Negative Bacillus 2 Gram Positive Cocci Resulted Laboratory Tests 06/19/18 07:30: Coccidioides Antibody (Comp Fix) [Pending] Current Medications Medications (Trade) Dose Ordered Sig/Briseida Route PRN Reason Start Time Stop Time Status Last Admin Dose Admin Acetaminophen (Tylenol) 650 mg Q4H PRN GT Mild Pain/Temp > 100.5 06/17/18 07:00 07/17/18 06:59 06/17/18 23:40 Acetylcysteine (Mucomyst) 100 mg TIDRT HHN 06/18/18 19:00 07/18/18 18:59 06/19/18 14:15 Albuterol/ Ipratropium (Albuterol/ Ipratropium) 3 ml Q4H PRN HHN Shortness of Breath 06/17/18 15:45 06/22/18 15:44 Albuterol/ Ipratropium (Albuterol/ Ipratropium) 3 ml Q6HRT HHN 06/17/18 19:00 06/22/18 18:59 06/19/18 14:15 Ascorbic Acid (Vitamin C) 500 mg BID GT 06/17/18 09:00 07/17/18 08:59 06/19/18 18:13 Aspirin (ASA) 81 mg DAILY GT 06/17/18 09:00 07/17/18 08:59 06/19/18 10:02 Dextrose (Dextrose 50%) 25 ml Q30M PRN IV Hypoglycemia 06/16/18 18:45 07/16/18 18:44 Dextrose (Dextrose 50%) 50 ml Q30M PRN IV Hypoglycemia 06/16/18 18:45 07/16/18 18:44 Diltiazem HCl (Cardizem) 30 mg EVERY 8 HOURS GT 06/18/18 06:00 07/18/18 05:59 06/19/18 13:55 Donepezil HCl (Aricept) 10 mg BEDTIME GT 06/16/18 21:00 07/16/18 20:59 06/18/18 21:27 Heparin Sodium (Porcine) (Heparin 5000 units/ml) 5,000 units EVERY 12 HOURS SUBQ 06/17/18 21:00 07/17/18 20:59 06/19/18 10:03 Insulin Aspart (NovoLOG) Q6HR SUBQ 06/17/18 00:00 07/16/18 20:59 06/19/18 18:24 Lansoprazole (Prevacid) 30 mg BID GT 06/17/18 18:00 07/17/18 17:59 06/19/18 18:13 Meropenem 1 gm/ Sodium Chloride 55 ml @ 110 mls/hr Q8H IVPB 06/17/18 10:00 06/22/18 09:59 06/19/18 18:13 Quetiapine Fumarate (SEROquel) 12.5 mg Q4H PRN ORAL For Anxiety 06/17/18 13:15 07/17/18 13:14 Sitagliptin Phosphate (Januvia) 100 mg DAILY GT 06/17/18 09:00 07/17/18 08:59 06/19/18 10:02 Zinc Sulfate (Zinc Sulfate) 220 mg DAILY GT 06/17/18 09:00 07/17/18 08:59 06/19/18 10:02 Subjective ROS Limited/Unobtainable: No Allergies: Coded Allergies: CEFTRIAXONE (Verified Allergy, Unknown, 04/04/18) Objective Last 24 Hour Vital Signs Date Time Temp Pulse Resp B/P (MAP) Pulse Ox O2 Delivery O2 Flow Rate FiO2 06/24/18 14:00 77 106/57 06/24/18 12:37 77 18 100 Nasal Cannula 3.0 32 06/24/18 12:30 36 06/24/18 12:30 75 20 98 Nasal Cannula 3.0 32 06/24/18 12:15 97.9 75 18 106/57 (73) 100 06/24/18 09:00 Nasal Cannula 2.0 06/24/18 08:47 Nasal Cannula 2.0 06/24/18 08:45 97.4 72 18 110/78 (89) 99 06/24/18 07:59 100 Nasal Cannula 3.0 32 06/24/18 07:59 78 20 100 Nasal Cannula 3.0 32 06/24/18 07:59 Nasal Cannula 3.0 32 06/24/18 07:46 36 06/24/18 07:46 76 22 100 Nasal Cannula 3.0 32 06/24/18 05:58 74 128/73 06/24/18 04:00 97.8 74 18 128/73 (91) 100 06/24/18 00:00 98.0 84 18 121/67 (85) 99 06/23/18 23:06 87 121/95 06/23/18 21:00 Nasal Cannula 2.0 06/23/18 21:00 Nasal Cannula 2.0 06/23/18 20:12 87 24 100 Nasal Cannula 3.0 32 06/23/18 20:00 97.7 84 19 121/95 (104) 100 06/23/18 19:58 83 20 100 Nasal Cannula 3.0 32 06/23/18 19:58 36 06/23/18 19:58 Nasal Cannula 3.0 32 06/23/18 19:57 100 Nasal Cannula 3.0 32 06/23/18 16:00 98.0 72 20 125/72 (89) 97 Intake and Output 06/23/18 06/24/18 18:59 06:59 Intake Total 1110 ml 1125 ml Output Total 600 ml 20 ml Balance 510 ml 1105 ml Intake Free Water 180 ml 140 ml IV Total 330 ml 385 ml Tube Feeding 600 ml 600 ml Output Urine Total 600 ml Drainage Total 20 ml # Bowel Movements 1 Current Medications Medications (Trade) Dose Ordered Sig/Briseida Route PRN Reason Start Time Stop Time Status Last Admin Dose Admin Acetaminophen (Tylenol) 650 mg Q4H PRN GT Mild Pain/Temp > 100.5 06/22/18 03:00 07/17/18 06:59 Acetylcysteine (Mucomyst) 100 mg TIDRT HHN 06/22/18 07:00 07/18/18 18:59 06/24/18 12:28 Albuterol/ Ipratropium (Albuterol/ Ipratropium) 3 ml Q4H PRN HHN Shortness of Breath 06/23/18 01:45 06/28/18 01:44 06/24/18 12:28 Ascorbic Acid (Vitamin C) 500 mg BID GT 06/22/18 09:00 07/17/18 08:59 06/24/18 10:50 Aspirin (ASA) 81 mg DAILY GT 06/22/18 09:00 07/17/18 08:59 06/24/18 10:44 Dextrose (Dextrose 50%) 25 ml Q30M PRN IV Hypoglycemia 06/21/18 23:45 07/16/18 18:44 Dextrose (Dextrose 50%) 50 ml Q30M PRN IV Hypoglycemia 06/21/18 23:45 07/16/18 18:44 Diltiazem HCl (Cardizem) 30 mg EVERY 8 HOURS GT 06/22/18 06:00 07/18/18 05:59 06/24/18 05:58 Donepezil HCl (Aricept) 10 mg BEDTIME GT 06/22/18 21:00 07/16/18 20:59 06/23/18 23:06 Heparin Sodium (Porcine) (Heparin 5000 units/ml) 5,000 units EVERY 12 HOURS SUBQ 06/22/18 09:00 07/17/18 20:59 06/24/18 10:55 Insulin Aspart (NovoLOG) Q6HR SUBQ 06/22/18 00:00 07/16/18 20:59 06/24/18 12:35 Lansoprazole (Prevacid) 30 mg BID GT 06/22/18 09:00 07/17/18 17:59 06/24/18 10:48 Minocycline HCl (Minocin) 100 mg ONCE ORAL 06/24/18 15:00 06/24/18 16:00 Minocycline HCl (Minocin) 100 mg Q12HR ORAL 06/24/18 21:00 07/01/18 20:59 Phosphorus (Phospha 250 Neutral) 250 mg BID ORAL 06/22/18 09:00 07/20/18 09:59 06/24/18 10:51 Quetiapine Fumarate (SEROquel) 12.5 mg Q4H PRN ORAL For Anxiety 06/22/18 01:15 07/17/18 13:14 Sitagliptin Phosphate (Januvia) 100 mg DAILY GT 06/22/18 09:00 07/17/18 08:59 06/24/18 10:46 Zinc Sulfate (Zinc Sulfate) 220 mg DAILY GT 06/22/18 09:00 07/17/18 08:59 06/24/18 10:51 Nikko Franklin MD Jun 24, 2018 14:38
--- NOTE | 2018-06-24 14:38 | General Progress Note ---
Assessment/Plan Status: stable Assessment/Plan #. Anemia due to underlying chronic disease. ESR was 115 prior to admission. Closely monitor for improvement. The patient has ongoing anemia, likely related to underlying decubitus ulceration. In addition to being chronically ill, bedbound, and hemoglobin, ferritin is >1000 --> transfuse if hgb <7 --> presurgery has been given 1 dose of epogen for more rapid recovery --> no hemolysis has been noted --> trend cbc daily #. Hyperproteinemia. Given albumin dissociation --> spep and upep have been ordered to evaluate for spike in m-spike, appears preliminary no m-spike noted --> appreciate pulm recs --> 06/19 albumin bolus #. Hospital-acquired pneumonia. He is on broad-spectrum antibiotics. Given nasal cannula. --> Remains on abx as per ID --> 06/23: CXR - Bilateral interstitial and airspace disease, likely reflecting combination of chronic and acute changes, appearing slightly improved since prior study of 06/16/2018. Possible small right pleural effusion --> AFB smears X 3 are negative --> No need for airborne isolation #. Azotemia. Given fluids as needed. BUN of 35. --> s/p ivf #. Stage IV ulcerations on the left and right side. Stage IV ulcerations --> Dr. Clark aware, following #. Dysphagia, status post PEG tube. #. Incontinence with a Beltran catheter in place. --> Beltran catheter is in place. --> uro recs as needed #. DPOA wants comfort care I appreciate the consultation. Subjective Date patient seen: Jun 24, 2018 Hematologic/Lymphatic: Reports: anemia Allergies: Coded Allergies: CEFTRIAXONE (Verified Allergy, Unknown, 04/04/18) All Systems: reviewed and negative except above Subjective No acute events. Remains on abx. H/H is stable. DC planning. Objective Last 24 Hour Vital Signs Date Time Temp Pulse Resp B/P (MAP) Pulse Ox O2 Delivery O2 Flow Rate FiO2 06/24/18 14:00 77 106/57 06/24/18 12:37 77 18 100 Nasal Cannula 3.0 32 06/24/18 12:30 36 06/24/18 12:30 75 20 98 Nasal Cannula 3.0 32 06/24/18 12:15 97.9 75 18 106/57 (73) 100 06/24/18 09:00 Nasal Cannula 2.0 06/24/18 08:47 Nasal Cannula 2.0 06/24/18 08:45 97.4 72 18 110/78 (89) 99 06/24/18 07:59 100 Nasal Cannula 3.0 32 06/24/18 07:59 78 20 100 Nasal Cannula 3.0 32 06/24/18 07:59 Nasal Cannula 3.0 32 06/24/18 07:46 36 06/24/18 07:46 76 22 100 Nasal Cannula 3.0 32 06/24/18 05:58 74 128/73 06/24/18 04:00 97.8 74 18 128/73 (91) 100 06/24/18 00:00 98.0 84 18 121/67 (85) 99 06/23/18 23:06 87 121/95 06/23/18 21:00 Nasal Cannula 2.0 06/23/18 21:00 Nasal Cannula 2.0 06/23/18 20:12 87 24 100 Nasal Cannula 3.0 32 06/23/18 20:00 97.7 84 19 121/95 (104) 100 06/23/18 19:58 83 20 100 Nasal Cannula 3.0 32 06/23/18 19:58 36 06/23/18 19:58 Nasal Cannula 3.0 32 06/23/18 19:57 100 Nasal Cannula 3.0 32 06/23/18 16:00 98.0 72 20 125/72 (89) 97 Intake and Output 06/23/18 06/24/18 18:59 06:59 Intake Total 1110 ml 1125 ml Output Total 600 ml 20 ml Balance 510 ml 1105 ml Intake Free Water 180 ml 140 ml IV Total 330 ml 385 ml Tube Feeding 600 ml 600 ml Output Urine Total 600 ml Drainage Total 20 ml # Bowel Movements 1 Height (Feet): 5 Height (Inches): 6.00 Weight (Pounds): 146 General Appearance: no apparent distress Objective GENERAL: nonverbal male, in no acute distress, +++NC HEENT: Normocephalic and atraumatic. Oropharynx is clear. NECK: Supple without lymphadenopathy. CHEST: Coarse bilateral rhonchi. HEART: Regular rhythm. ABDOMEN: Soft, nontender, nondistended. ++ peg EXTREMITIES: No cyanosis, clubbing, or edema. BACK: unstageable requiring debridement : ++ Nikolai Douglas MD Jun 24, 2018 14:38
[2018-06-24] MEDS ORDERED: Minocycline HCl 50mg cap ORAL SCH (15:00)
[2018-06-24] MEDS: Acetaminophen 650mg/20.3ml GT PRN ×2 (15:25→21:48)
--- NOTE | 2018-06-24 15:31 | Progress Note ---
DATE: 06/24/2018 SUBJECTIVE: The patient is still confused, has episodes of agitation. Poor insight and judgment. The patient is having memory impairment. MENTAL STATUS EXAMINATION: The patient is confused and disoriented. Mood is dysphoric and has episodes of agitation. Affect is constricted. Congruent with mood. Thought process is concrete. Thought content, no suicidal or homicidal ideations. ASSESSMENT: 1. Encephalopathy. 2. Chronic dementia. 3. Depression. PLAN: 1. The patient will be continued on Seroquel as needed. 2. We will continue benazepril. 3. The patient lacks capacity to make decision. 4. We will continue to follow and readjust the medications. Shawn Meza M.D. DR: Enoc JOB#: [id number] CC:
--- NOTE | 2018-06-24 15:38 | Nephrology Progress Note ---
Assessment/Plan Problem List: (1) Cachexia (2) Proteinuria (3) UTI (urinary tract infection) (4) Diabetes mellitus out of control Assessment (1) UTI (urinary tract infection) / Pneumonia (2) Proteinuria (3) Azotemia (4) Cachexia (5) Anemia Pneumonia- Hypoxia - Renal failure- Proteinuria- Hypoalbuminemia Anemia- UTI- Cachexia , Malnutrition- PEG- HypoTension DM Plan Plan Phos supp respiratory support- Antibiotics Monitor renal parameters hold bp meds- parameters Hold Glucophage albumin bolus per orders Subjective ROS Limited/Unobtainable: No Constitutional: Reports: malaise Objective Objective Last 24 Hour Vital Signs Date Time Temp Pulse Resp B/P (MAP) Pulse Ox O2 Delivery O2 Flow Rate FiO2 06/24/18 14:00 77 106/57 06/24/18 12:37 77 18 100 Nasal Cannula 3.0 32 06/24/18 12:30 36 06/24/18 12:30 75 20 98 Nasal Cannula 3.0 32 06/24/18 12:15 97.9 75 18 106/57 (73) 100 06/24/18 09:00 Nasal Cannula 2.0 06/24/18 08:47 Nasal Cannula 2.0 06/24/18 08:45 97.4 72 18 110/78 (89) 99 06/24/18 07:59 100 Nasal Cannula 3.0 32 06/24/18 07:59 78 20 100 Nasal Cannula 3.0 32 06/24/18 07:59 Nasal Cannula 3.0 32 06/24/18 07:46 36 06/24/18 07:46 76 22 100 Nasal Cannula 3.0 32 06/24/18 05:58 74 128/73 06/24/18 04:00 97.8 74 18 128/73 (91) 100 06/24/18 00:00 98.0 84 18 121/67 (85) 99 06/23/18 23:06 87 121/95 06/23/18 21:00 Nasal Cannula 2.0 06/23/18 21:00 Nasal Cannula 2.0 06/23/18 20:12 87 24 100 Nasal Cannula 3.0 32 06/23/18 20:00 97.7 84 19 121/95 (104) 100 06/23/18 19:58 83 20 100 Nasal Cannula 3.0 32 06/23/18 19:58 36 06/23/18 19:58 Nasal Cannula 3.0 32 06/23/18 19:57 100 Nasal Cannula 3.0 32 06/23/18 16:00 98.0 72 20 125/72 (89) 97 Intake and Output 06/23/18 06/24/18 18:59 06:59 Intake Total 1110 ml 1125 ml Output Total 600 ml 20 ml Balance 510 ml 1105 ml Intake Free Water 180 ml 140 ml IV Total 330 ml 385 ml Tube Feeding 600 ml 600 ml Output Urine Total 600 ml Drainage Total 20 ml # Bowel Movements 1 Height (Feet): 5 Height (Inches): 6.00 Weight (Pounds): 146 General Appearance: no apparent distress Objective no change Chava Dwyer MD Jun 24, 2018 15:38
[2018-06-24 15:47] VITALS: BP 113/63
--- NOTE | 2018-06-24 16:21 | General Progress Note ---
Assessment/Plan Problem List: (1) UTI (urinary tract infection) ICD Codes: N39.0 - Urinary tract infection, site not specified SNOMED: 23954204 (2) PNA (pneumonia) ICD Codes: J18.9 - Pneumonia, unspecified organism SNOMED: 885799906 (3) Sacral decubitus ulcer, stage IV ICD Codes: L89.154 - Pressure ulcer of sacral region, stage 4 SNOMED: 816124101, 455113974 (4) Cachexia ICD Codes: R64 - Cachexia SNOMED: 947147486 (5) Acute renal failure ICD Codes: N17.9 - Acute kidney failure, unspecified SNOMED: 38115876 (6) Decubitus skin ulcer ICD Codes: L89.90 - Pressure ulcer of unspecified site, unspecified stage SNOMED: 020056196 Status: progressing Assessment/Plan dc in am afebrile s/p wound vac wound care sacral decub pna and sepsis severe malnutrition Subjective ROS Limited/Unobtainable: Yes Allergies: Coded Allergies: CEFTRIAXONE (Verified Allergy, Unknown, 04/04/18) Objective Last 24 Hour Vital Signs Date Time Temp Pulse Resp B/P (MAP) Pulse Ox O2 Delivery O2 Flow Rate FiO2 06/24/18 15:47 97.6 78 18 113/63 (80) 98 06/24/18 14:00 77 106/57 06/24/18 12:37 77 18 100 Nasal Cannula 3.0 32 06/24/18 12:30 36 06/24/18 12:30 75 20 98 Nasal Cannula 3.0 32 06/24/18 12:15 97.9 75 18 106/57 (73) 100 06/24/18 09:00 Nasal Cannula 2.0 06/24/18 08:47 Nasal Cannula 2.0 06/24/18 08:45 97.4 72 18 110/78 (89) 99 06/24/18 07:59 100 Nasal Cannula 3.0 32 06/24/18 07:59 78 20 100 Nasal Cannula 3.0 32 06/24/18 07:59 Nasal Cannula 3.0 32 06/24/18 07:46 36 06/24/18 07:46 76 22 100 Nasal Cannula 3.0 32 06/24/18 05:58 74 128/73 06/24/18 04:00 97.8 74 18 128/73 (91) 100 06/24/18 00:00 98.0 84 18 121/67 (85) 99 06/23/18 23:06 87 121/95 06/23/18 21:00 Nasal Cannula 2.0 06/23/18 21:00 Nasal Cannula 2.0 06/23/18 20:12 87 24 100 Nasal Cannula 3.0 32 06/23/18 20:00 97.7 84 19 121/95 (104) 100 06/23/18 19:58 83 20 100 Nasal Cannula 3.0 32 06/23/18 19:58 36 06/23/18 19:58 Nasal Cannula 3.0 32 06/23/18 19:57 100 Nasal Cannula 3.0 32 Intake and Output 06/23/18 06/24/18 18:59 06:59 Intake Total 1110 ml 1125 ml Output Total 600 ml 20 ml Balance 510 ml 1105 ml Intake Free Water 180 ml 140 ml IV Total 330 ml 385 ml Tube Feeding 600 ml 600 ml Output Urine Total 600 ml Drainage Total 20 ml # Bowel Movements 1 Height (Feet): 5 Height (Inches): 6.00 Weight (Pounds): 146 General Appearance: confused Respiratory/Chest: lungs clear Jamia Wu MD Jun 24, 2018 16:21
[2018-06-24 20:00] VITALS: BP 102/57
[2018-06-24] MEDS: Donepezil 5mg Tab GT SCH (21:48)
[2018-06-24] MEDS: Minocycline HCl 50mg cap ORAL SCH (21:48)
[2018-06-25] VITALS: BP 119/64
[2018-06-25] MEDS: Acetaminophen 650mg/20.3ml GT PRN (02:04)
[2018-06-25 04:00] VITALS: BP 118/65
[2018-06-25] MEDS: dilTIAZem HCl 30mg tab GT SCH (05:41)
[2018-06-25] MEDS: NovoLOG Insulin Flexpen SUBQ SCH ×2 (05:42→12:24)
[2018-06-25] MEDS: Albuterol/Ipratropium 3ml neb HHN PRN (07:10)
[2018-06-25 07:18] LABS: ANION GAP 4 mmol/L (5-15); BLOOD UREA NITROGEN 28 mg/dL (7-18); CALCIUM 9.5 MG/DL (8.5-10.1); CARBON DIOXIDE 35 MMOL/L (21-32); CHLORIDE 100 MMOL/L (98-107); CREATININE 0.6 MG/DL (0.55-1.30); SODIUM 139 MMOL/L (136-145)
[2018-06-25 08:00] VITALS: BP 104/65
[2018-06-25] MEDS: Aspirin Baby 81mg GT SCH (10:15)
[2018-06-25] MEDS: Ascorbic Acid 500mg tab GT SCH (10:17)
[2018-06-25] MEDS: Zinc Sulfate 220mg cap GT SCH (10:18)
[2018-06-25] MEDS: Phospha 250 Neutral tab ORAL SCH (10:19)
[2018-06-25] MEDS: Minocycline HCl 50mg cap ORAL SCH (10:24)
[2018-06-25] MEDS: Heparin 5000 units/ml inj SUBQ SCH (10:27)
--- NOTE | 2018-06-25 11:39 | Nephrology Progress Note ---
Assessment/Plan Problem List: (1) Cachexia (2) Proteinuria (3) UTI (urinary tract infection) (4) Diabetes mellitus out of control Assessment (1) UTI (urinary tract infection) / Pneumonia (2) Proteinuria (3) Azotemia (4) Cachexia (5) Anemia Pneumonia- Hypoxia - Renal failure- Proteinuria- Hypoalbuminemia Anemia- UTI- Cachexia , Malnutrition- PEG- HypoTension DM Plan Plan Phos supp respiratory support- Antibiotics Monitor renal parameters hold bp meds- parameters Hold Glucophage albumin bolus as needed per orders ? DC Subjective ROS Limited/Unobtainable: No Objective Objective Last 24 Hour Vital Signs Date Time Temp Pulse Resp B/P (MAP) Pulse Ox O2 Delivery O2 Flow Rate FiO2 06/25/18 09:00 Nasal Cannula 2.0 06/25/18 08:00 96.8 76 19 104/65 (78) 100 06/25/18 07:20 77 20 100 Nasal Cannula 2.0 06/25/18 07:13 32 06/25/18 07:11 Nasal Cannula 3.0 32 06/25/18 07:10 78 20 100 Nasal Cannula 3.0 32 06/25/18 07:10 100 Nasal Cannula 3.0 32 06/25/18 05:41 71 118/65 06/25/18 04:00 96.8 71 19 118/65 (82) 100 06/25/18 00:00 96.4 71 18 119/64 (82) 100 06/24/18 22:18 98.2 06/24/18 21:26 83 102/57 06/24/18 21:00 Nasal Cannula 2.0 06/24/18 20:00 98.2 83 17 102/57 (72) 100 06/24/18 19:47 79 18 99 Nasal Cannula 3.0 32 06/24/18 19:32 99 Nasal Cannula 3.0 32 06/24/18 19:32 Nasal Cannula 3.0 32 06/24/18 19:32 77 18 99 Nasal Cannula 3.0 32 06/24/18 19:32 32 06/24/18 15:47 97.6 78 18 113/63 (80) 98 06/24/18 14:00 77 106/57 06/24/18 12:37 77 18 100 Nasal Cannula 3.0 32 06/24/18 12:30 36 06/24/18 12:30 75 20 98 Nasal Cannula 3.0 32 06/24/18 12:15 97.9 75 18 106/57 (73) 100 Intake and Output 06/24/18 06/25/18 19:00 07:00 Intake Total 660 ml 760 ml Output Total 400 ml 30 ml Balance 260 ml 730 ml Intake Free Water 60 ml 210 ml Tube Feeding 600 ml 550 ml Output Urine Total 400 ml Drainage Total 30 ml # Bowel Movements 1 Laboratory Tests 06/25/18 05:35: Sodium Level 139, Potassium Level 5.0, Chloride Level 100, Carbon Dioxide Level 35H, Anion Gap 4L, Blood Urea Nitrogen 28H, Creatinine 0.6, Estimat Glomerular Filtration Rate > 60, Glucose Level 159H, Calcium Level 9.5 Height (Feet): 5 Height (Inches): 6.00 Weight (Pounds): 149 General Appearance: no apparent distress Abdomen: distended Objective no change Chava Dwyer MD Jun 25, 2018 11:39
--- NOTE | 2018-06-25 11:54 | Infectious Diseases Prog Note ---
Assessment/Plan Assessment/Plan A; Pneumonia: CT scan tree in bud opacities Try to rule MAC & Fungal infection DM Dementia Pressure ulcer Anemia MRSA & Acinetobacter colonization P; continue PO Minocycline X 5 days AFB smears X 3 are negative agree with discharge case was D/W RN Subjective ROS Limited/Unobtainable: Yes Constitutional: Reports: no symptoms Allergies: Coded Allergies: CEFTRIAXONE (Verified Allergy, Unknown, 04/04/18) Objective Vital Signs Last 24 Hour Vital Signs Date Time Temp Pulse Resp B/P (MAP) Pulse Ox O2 Delivery O2 Flow Rate FiO2 06/25/18 09:00 Nasal Cannula 2.0 06/25/18 08:00 96.8 76 19 104/65 (78) 100 06/25/18 07:20 77 20 100 Nasal Cannula 2.0 06/25/18 07:13 32 06/25/18 07:11 Nasal Cannula 3.0 32 06/25/18 07:10 78 20 100 Nasal Cannula 3.0 32 06/25/18 07:10 100 Nasal Cannula 3.0 32 06/25/18 05:41 71 118/65 06/25/18 04:00 96.8 71 19 118/65 (82) 100 06/25/18 00:00 96.4 71 18 119/64 (82) 100 06/24/18 22:18 98.2 06/24/18 21:26 83 102/57 06/24/18 21:00 Nasal Cannula 2.0 06/24/18 20:00 98.2 83 17 102/57 (72) 100 06/24/18 19:47 79 18 99 Nasal Cannula 3.0 32 06/24/18 19:32 99 Nasal Cannula 3.0 32 06/24/18 19:32 Nasal Cannula 3.0 32 06/24/18 19:32 77 18 99 Nasal Cannula 3.0 32 06/24/18 19:32 32 06/24/18 15:47 97.6 78 18 113/63 (80) 98 06/24/18 14:00 77 106/57 06/24/18 12:37 77 18 100 Nasal Cannula 3.0 32 06/24/18 12:30 36 06/24/18 12:30 75 20 98 Nasal Cannula 3.0 32 06/24/18 12:15 97.9 75 18 106/57 (73) 100 Height (Feet): 5 Height (Inches): 6.00 Weight (Pounds): 149 General Appearance: no acute distress HEENT: mucous membranes moist Respiratory/Chest: rhonchi - bilaterally Cardiovascular: normal rate Abdomen: soft, non tender, other - GT feeding Extremities: no edema Skin: ulcers Neurologic/Psychiatric: aphasia Laboratory Tests Test 06/25/18 05:35 Sodium Level 139 MMOL/L (136-145) Potassium Level 5.0 MMOL/L (3.5-5.1) Chloride Level 100 MMOL/L (98-107) Carbon Dioxide Level 35 MMOL/L (21-32) H Anion Gap 4 mmol/L (5-15) L Blood Urea Nitrogen 28 mg/dL (7-18) H Creatinine 0.6 MG/DL (0.55-1.30) Estimat Glomerular Filtration Rate > 60 mL/min (>60) Glucose Level 159 MG/DL (74-106) H Calcium Level 9.5 MG/DL (8.5-10.1) Current Medications Medications (Trade) Dose Ordered Sig/Briseida Route PRN Reason Start Time Stop Time Status Last Admin Dose Admin Acetaminophen (Tylenol) 650 mg Q4H PRN GT Mild Pain/Temp > 100.5 06/22/18 03:00 07/17/18 06:59 06/25/18 02:04 Acetylcysteine (Mucomyst) 100 mg TIDRT HHN 06/22/18 07:00 07/18/18 18:59 06/25/18 07:10 Albuterol/ Ipratropium (Albuterol/ Ipratropium) 3 ml Q4H PRN HHN Shortness of Breath 06/23/18 01:45 06/28/18 01:44 06/25/18 07:10 Ascorbic Acid (Vitamin C) 500 mg BID GT 06/22/18 09:00 07/17/18 08:59 06/25/18 10:17 Aspirin (ASA) 81 mg DAILY GT 06/22/18 09:00 07/17/18 08:59 06/25/18 10:15 Dextrose (Dextrose 50%) 25 ml Q30M PRN IV Hypoglycemia 06/21/18 23:45 07/16/18 18:44 Dextrose (Dextrose 50%) 50 ml Q30M PRN IV Hypoglycemia 06/21/18 23:45 07/16/18 18:44 Diltiazem HCl (Cardizem) 30 mg EVERY 8 HOURS GT 06/22/18 06:00 07/18/18 05:59 06/25/18 05:41 Donepezil HCl (Aricept) 10 mg BEDTIME GT 06/22/18 21:00 07/16/18 20:59 06/24/18 21:48 Heparin Sodium (Porcine) (Heparin 5000 units/ml) 5,000 units EVERY 12 HOURS SUBQ 06/22/18 09:00 07/17/18 20:59 06/25/18 10:27 Insulin Aspart (NovoLOG) Q6HR SUBQ 06/22/18 00:00 07/16/18 20:59 06/25/18 05:42 Lansoprazole (Prevacid) 30 mg BID GT 06/22/18 09:00 07/17/18 17:59 06/25/18 10:17 Minocycline HCl (Minocin) 100 mg Q12HR ORAL 06/24/18 21:00 07/01/18 20:59 06/25/18 10:24 Phosphorus (Phospha 250 Neutral) 250 mg BID ORAL 06/22/18 09:00 07/20/18 09:59 06/25/18 10:19 Quetiapine Fumarate (SEROquel) 12.5 mg Q4H PRN ORAL For Anxiety 06/22/18 01:15 07/17/18 13:14 Sitagliptin Phosphate (Januvia) 100 mg DAILY GT 06/22/18 09:00 07/17/18 08:59 06/25/18 10:16 Zinc Sulfate (Zinc Sulfate) 220 mg DAILY GT 06/22/18 09:00 07/17/18 08:59 06/25/18 10:18 Herson Palmer MD Jun 25, 2018 11:54
[2018-06-25 12:00] VITALS: BP 118/65
[2018-06-25] MEDS ORDERED: MINOCYCLINE HC100 MG PO (12:00)
--- NOTE | 2018-06-25 13:28 | General Progress Note ---
Assessment/Plan Problem List: (1) UTI (urinary tract infection) ICD Codes: N39.0 - Urinary tract infection, site not specified SNOMED: 80942213 (2) PNA (pneumonia) ICD Codes: J18.9 - Pneumonia, unspecified organism SNOMED: 756071171 (3) Sacral decubitus ulcer, stage IV ICD Codes: L89.154 - Pressure ulcer of sacral region, stage 4 SNOMED: 063045962, 408692456 (4) Cachexia ICD Codes: R64 - Cachexia SNOMED: 964018353 (5) Acute renal failure ICD Codes: N17.9 - Acute kidney failure, unspecified SNOMED: 68594766 (6) Decubitus skin ulcer ICD Codes: L89.90 - Pressure ulcer of unspecified site, unspecified stage SNOMED: 026565598 Status: progressing Assessment/Plan dc to snf see dc summary for details sacral decub pna and sepsis severe malnutrition Subjective ROS Limited/Unobtainable: Yes Allergies: Coded Allergies: CEFTRIAXONE (Verified Allergy, Unknown, 04/04/18) Objective Last 24 Hour Vital Signs Date Time Temp Pulse Resp B/P (MAP) Pulse Ox O2 Delivery O2 Flow Rate FiO2 06/25/18 12:00 97.1 70 19 118/65 (82) 100 06/25/18 09:00 Nasal Cannula 2.0 06/25/18 08:00 96.8 76 19 104/65 (78) 100 06/25/18 07:20 77 20 100 Nasal Cannula 2.0 06/25/18 07:13 32 06/25/18 07:11 Nasal Cannula 3.0 32 06/25/18 07:10 78 20 100 Nasal Cannula 3.0 32 06/25/18 07:10 100 Nasal Cannula 3.0 32 06/25/18 05:41 71 118/65 06/25/18 04:00 96.8 71 19 118/65 (82) 100 06/25/18 00:00 96.4 71 18 119/64 (82) 100 06/24/18 22:18 98.2 06/24/18 21:26 83 102/57 06/24/18 21:00 Nasal Cannula 2.0 06/24/18 20:00 98.2 83 17 102/57 (72) 100 06/24/18 19:47 79 18 99 Nasal Cannula 3.0 32 06/24/18 19:32 99 Nasal Cannula 3.0 32 06/24/18 19:32 Nasal Cannula 3.0 32 06/24/18 19:32 77 18 99 Nasal Cannula 3.0 32 06/24/18 19:32 32 06/24/18 15:47 97.6 78 18 113/63 (80) 98 06/24/18 14:00 77 106/57 Intake and Output 06/24/18 06/25/18 18:59 06:59 Intake Total 660 ml 810 ml Output Total 400 ml 30 ml Balance 260 ml 780 ml Intake Free Water 60 ml 210 ml Tube Feeding 600 ml 600 ml Output Urine Total 400 ml Drainage Total 30 ml # Bowel Movements 1 Laboratory Tests 06/25/18 05:35: Sodium Level 139, Potassium Level 5.0, Chloride Level 100, Carbon Dioxide Level 35H, Anion Gap 4L, Blood Urea Nitrogen 28H, Creatinine 0.6, Estimat Glomerular Filtration Rate > 60, Glucose Level 159H, Calcium Level 9.5 Height (Feet): 5 Height (Inches): 6.00 Weight (Pounds): 149 General Appearance: confused Neck: supple Respiratory/Chest: lungs clear Abdomen: soft Jamia Wu MD Jun 25, 2018 13:28
--- NOTE | 2018-06-25 14:59 | General Progress Note ---
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 Status: unchanged Assessment/Plan Seroquel prn provided ro/st Subjective Date patient seen: Jun 25, 2018 Neurologic/Psychiatric: Reports: anxiety, depressed, emotional problems Allergies: Coded Allergies: CEFTRIAXONE (Verified Allergy, Unknown, 04/04/18) Subjective the pt is non-verbal no changes Objective Last 24 Hour Vital Signs Date Time Temp Pulse Resp B/P (MAP) Pulse Ox O2 Delivery O2 Flow Rate FiO2 06/25/18 14:29 80 20 99 Nasal Cannula 2.0 06/25/18 14:22 32 06/25/18 14:18 94 20 96 Nasal Cannula 3.0 32 06/25/18 12:00 97.1 70 19 118/65 (82) 100 06/25/18 09:00 Nasal Cannula 2.0 06/25/18 08:00 96.8 76 19 104/65 (78) 100 06/25/18 07:20 77 20 100 Nasal Cannula 2.0 06/25/18 07:13 32 06/25/18 07:11 Nasal Cannula 3.0 32 06/25/18 07:10 78 20 100 Nasal Cannula 3.0 32 06/25/18 07:10 100 Nasal Cannula 3.0 32 06/25/18 05:41 71 118/65 06/25/18 04:00 96.8 71 19 118/65 (82) 100 06/25/18 00:00 96.4 71 18 119/64 (82) 100 06/24/18 22:18 98.2 06/24/18 21:26 83 102/57 06/24/18 21:00 Nasal Cannula 2.0 06/24/18 20:00 98.2 83 17 102/57 (72) 100 06/24/18 19:47 79 18 99 Nasal Cannula 3.0 32 06/24/18 19:32 99 Nasal Cannula 3.0 32 06/24/18 19:32 Nasal Cannula 3.0 32 06/24/18 19:32 77 18 99 Nasal Cannula 3.0 32 06/24/18 19:32 32 06/24/18 15:47 97.6 78 18 113/63 (80) 98 Intake and Output 06/24/18 06/25/18 18:59 06:59 Intake Total 660 ml 810 ml Output Total 400 ml 30 ml Balance 260 ml 780 ml Intake Free Water 60 ml 210 ml Tube Feeding 600 ml 600 ml Output Urine Total 400 ml Drainage Total 30 ml # Bowel Movements 1 Laboratory Tests 06/25/18 05:35: Sodium Level 139, Potassium Level 5.0, Chloride Level 100, Carbon Dioxide Level 35H, Anion Gap 4L, Blood Urea Nitrogen 28H, Creatinine 0.6, Estimat Glomerular Filtration Rate > 60, Glucose Level 159H, Calcium Level 9.5 Height (Feet): 5 Height (Inches): 6.00 Weight (Pounds): 149 General Appearance: alert, confused, agitated Shawn Meza MD Jun 25, 2018 14:59
--- NOTE | 2018-06-25 15:28 | General Progress Note ---
Assessment/Plan Status: stable Assessment/Plan #. Anemia due to underlying chronic disease. ESR was 115 prior to admission. Closely monitor for improvement. The patient has ongoing anemia, likely related to underlying decubitus ulceration. In addition to being chronically ill, bedbound, and hemoglobin, ferritin is >1000 --> transfuse if hgb <7 --> presurgery has been given 1 dose of epogen for more rapid recovery --> no hemolysis has been noted --> trend cbc daily #. Hyperproteinemia. Given albumin dissociation --> spep and upep have been ordered to evaluate for spike in m-spike, appears preliminary no m-spike noted --> appreciate pulm recs --> 06/19 albumin bolus #. Hospital-acquired pneumonia. He is on broad-spectrum antibiotics. Given nasal cannula. --> Remains on abx as per ID --> 06/23: CXR - Bilateral interstitial and airspace disease, likely reflecting combination of chronic and acute changes, appearing slightly improved since prior study of 06/16/2018. Possible small right pleural effusion --> AFB smears X 3 are negative --> No need for airborne isolation #. Azotemia. Given fluids as needed. BUN of 35. --> s/p ivf #. Stage IV ulcerations on the left and right side. Stage IV ulcerations --> Dr. Clark aware, following #. Dysphagia, status post PEG tube. #. Incontinence with a Beltran catheter in place. --> Beltran catheter is in place. --> uro recs as needed #. DPOA wants comfort care I appreciate the consultation. Subjective Date patient seen: Jun 25, 2018 Hematologic/Lymphatic: Reports: anemia Allergies: Coded Allergies: CEFTRIAXONE (Verified Allergy, Unknown, 04/04/18) All Systems: reviewed and negative except above Subjective No acute events. DC planning. Objective Last 24 Hour Vital Signs Date Time Temp Pulse Resp B/P (MAP) Pulse Ox O2 Delivery O2 Flow Rate FiO2 06/25/18 14:29 80 20 99 Nasal Cannula 2.0 06/25/18 14:22 32 06/25/18 14:18 94 20 96 Nasal Cannula 3.0 32 06/25/18 12:00 97.1 70 19 118/65 (82) 100 06/25/18 09:00 Nasal Cannula 2.0 06/25/18 08:00 96.8 76 19 104/65 (78) 100 06/25/18 07:20 77 20 100 Nasal Cannula 2.0 06/25/18 07:13 32 06/25/18 07:11 Nasal Cannula 3.0 32 06/25/18 07:10 78 20 100 Nasal Cannula 3.0 32 06/25/18 07:10 100 Nasal Cannula 3.0 32 06/25/18 05:41 71 118/65 06/25/18 04:00 96.8 71 19 118/65 (82) 100 06/25/18 00:00 96.4 71 18 119/64 (82) 100 06/24/18 22:18 98.2 06/24/18 21:26 83 102/57 06/24/18 21:00 Nasal Cannula 2.0 06/24/18 20:00 98.2 83 17 102/57 (72) 100 06/24/18 19:47 79 18 99 Nasal Cannula 3.0 32 06/24/18 19:32 99 Nasal Cannula 3.0 32 06/24/18 19:32 Nasal Cannula 3.0 32 06/24/18 19:32 77 18 99 Nasal Cannula 3.0 32 06/24/18 19:32 32 06/24/18 15:47 97.6 78 18 113/63 (80) 98 Intake and Output 06/24/18 06/25/18 18:59 06:59 Intake Total 660 ml 810 ml Output Total 400 ml 30 ml Balance 260 ml 780 ml Intake Free Water 60 ml 210 ml Tube Feeding 600 ml 600 ml Output Urine Total 400 ml Drainage Total 30 ml # Bowel Movements 1 Laboratory Tests 06/25/18 05:35: Sodium Level 139, Potassium Level 5.0, Chloride Level 100, Carbon Dioxide Level 35H, Anion Gap 4L, Blood Urea Nitrogen 28H, Creatinine 0.6, Estimat Glomerular Filtration Rate > 60, Glucose Level 159H, Calcium Level 9.5 Height (Feet): 5 Height (Inches): 6.00 Weight (Pounds): 149 General Appearance: no apparent distress Objective GENERAL: nonverbal male, in no acute distress, +++NC HEENT: Normocephalic and atraumatic. Oropharynx is clear. NECK: Supple without lymphadenopathy. CHEST: Coarse bilateral rhonchi. HEART: Regular rhythm. ABDOMEN: Soft, nontender, nondistended. ++ peg EXTREMITIES: No cyanosis, clubbing, or edema. BACK: unstageable requiring debridement : ++ Nikolai Douglas MD Jun 25, 2018 15:28
--- NOTE | 2018-06-25 16:08 | Pulmonology Progress Note ---
Assessment/Plan Assessment/Plan Assessment/Plan ASSESSMENT: The patient is a 68-year-old male longterm resident with acute on chronic hypoxemic hypercapnic respiratory failure, bilateral infiltrates, likely recurrent healthcare-associated pneumonia, dementia, CVA, dysphagia, hypertension, and CAD. CT of the chest demonstrates e/o chronic lung disease with bilateral tree-in-bud opacities, reticulonodular infiltrates and bronchiectasis PROBLEM LIST: 1. Multifocal pneumonia, healthcare-associated pneumonia. 2. B reticulonodular infiltrates in a tree-in-bud appearance, suggestive of an infectious bronchiolitis, i.e. BISI, and bronchiectasis 3. skilled nursing resident. 4. Dementia/CVA. 5. Dysphagia. 6. Hypertension, CAD. 7. Protein albumin discordance. TREATMENT PLAN: 1. Breticulonodular infiltrates in a tree in bud appearance is usually indicative of an infectious bronchiolitis, i.e. BISI. We sent off serologies. Given that he is DNAR/DNI and that he would be unlikely to tolerate BISI therapy (@ least 18 months of REC) I feel the risks of bronchoscopy outweigh any potential benefits. 2. Abx (J LUIS) per ID. F/U serologies, CX and AFB (NOT FOR MTB but for BISI) 3. Optimize pulmonary hygiene/mobilize as tolerated. 4. Titrate down FiO2 to keep saturations greater than 90%. 5. P.r.n. BiPAP. 6. PRN and PRN HHN's 7. Mucomyst HHN's 8. CPT 9. Aspiration precautions, cautious tube feeds. 10. Monitor volumes and renal function. 11. Wound care, wound vac, surgery recs 12. Heparin subcutaneous for DVT prophylaxis. 12. DNR/DNI. Discussed case at length tonight with the patient's daughter, Belinda Rivero. She is concerned that his current quality of life is unacceptable and would like to avoid further hospitalizations. We discussed many options, including hospice care, which would be most appropriate. She inquired about him returning to his SNF on hospice (once optimized). I told her that Dr. Zhou will discuss the plan with her further tommorrow and could likely facilitate that but that I agree that SNF with hospice would be most appropriate given the overall goals of care. Extended visit 60 min Subjective Allergies: Coded Allergies: CEFTRIAXONE (Verified Allergy, Unknown, 04/04/18) Subjective AFVSS, O2 needs stable Has wound vac + cough + SOB no F/C Objective Vital Signs Noted General Appearance: cachetic HEENT: normocephalic, atraumatic, anicteric, mucous membranes moist Respiratory/Chest: rhonchi Cardiovascular: normal peripheral pulses, normal rate, regular rhythm Abdomen: normal bowel sounds, soft, non tender, no organomegaly, non distended , other - GT Extremities: no cyanosis, no clubbing, no edema, other - contracted CXR: 06/23/2018 Impression: Bilateral interstitial and airspace disease, likely reflecting combination of chronic and acute changes, appearing slightly improved since prior study of 06/16/2018 icrobiology Date/Time Source Procedure Growth Status 06/17/18 21:00 Sputum Expectorated Gram Stain - Final Resulted 06/17/18 21:00 Sputum Expectorated Sputum Culture Pending Resulted 06/16/18 23:00 Hip Left Gram Stain - Final Resulted 06/16/18 23:00 Wound Culture - Preliminary Gram Positive Cocci Resulted 06/16/18 23:00 Sacral Wound Gram Stain - Final Resulted 06/16/18 23:00 Wound Culture - Preliminary Gram Negative Bacillus 1 Gram Negative Bacillus 2 Gram Positive Cocci Resulted Laboratory Tests 06/19/18 07:30: Coccidioides Antibody (Comp Fix) [Pending] Current Medications Medications (Trade) Dose Ordered Sig/Briseida Route PRN Reason Start Time Stop Time Status Last Admin Dose Admin Acetaminophen (Tylenol) 650 mg Q4H PRN GT Mild Pain/Temp > 100.5 06/17/18 07:00 07/17/18 06:59 06/17/18 23:40 Acetylcysteine (Mucomyst) 100 mg TIDRT HHN 06/18/18 19:00 07/18/18 18:59 06/19/18 14:15 Albuterol/ Ipratropium (Albuterol/ Ipratropium) 3 ml Q4H PRN HHN Shortness of Breath 06/17/18 15:45 06/22/18 15:44 Albuterol/ Ipratropium (Albuterol/ Ipratropium) 3 ml Q6HRT HHN 06/17/18 19:00 06/22/18 18:59 06/19/18 14:15 Ascorbic Acid (Vitamin C) 500 mg BID GT 06/17/18 09:00 07/17/18 08:59 06/19/18 18:13 Aspirin (ASA) 81 mg DAILY GT 06/17/18 09:00 07/17/18 08:59 06/19/18 10:02 Dextrose (Dextrose 50%) 25 ml Q30M PRN IV Hypoglycemia 06/16/18 18:45 07/16/18 18:44 Dextrose (Dextrose 50%) 50 ml Q30M PRN IV Hypoglycemia 06/16/18 18:45 07/16/18 18:44 Diltiazem HCl (Cardizem) 30 mg EVERY 8 HOURS GT 06/18/18 06:00 07/18/18 05:59 06/19/18 13:55 Donepezil HCl (Aricept) 10 mg BEDTIME GT 06/16/18 21:00 07/16/18 20:59 06/18/18 21:27 Heparin Sodium (Porcine) (Heparin 5000 units/ml) 5,000 units EVERY 12 HOURS SUBQ 06/17/18 21:00 07/17/18 20:59 06/19/18 10:03 Insulin Aspart (NovoLOG) Q6HR SUBQ 06/17/18 00:00 07/16/18 20:59 06/19/18 18:24 Lansoprazole (Prevacid) 30 mg BID GT 06/17/18 18:00 07/17/18 17:59 06/19/18 18:13 Meropenem 1 gm/ Sodium Chloride 55 ml @ 110 mls/hr Q8H IVPB 06/17/18 10:00 06/22/18 09:59 06/19/18 18:13 Quetiapine Fumarate (SEROquel) 12.5 mg Q4H PRN ORAL For Anxiety 06/17/18 13:15 07/17/18 13:14 Sitagliptin Phosphate (Januvia) 100 mg DAILY GT 06/17/18 09:00 07/17/18 08:59 06/19/18 10:02 Zinc Sulfate (Zinc Sulfate) 220 mg DAILY GT 06/17/18 09:00 07/17/18 08:59 06/19/18 10:02 Subjective ROS Limited/Unobtainable: No Allergies: Coded Allergies: CEFTRIAXONE (Verified Allergy, Unknown, 04/04/18) Objective Last 24 Hour Vital Signs Date Time Temp Pulse Resp B/P (MAP) Pulse Ox O2 Delivery O2 Flow Rate FiO2 06/25/18 14:29 80 20 99 Nasal Cannula 2.0 06/25/18 14:22 32 06/25/18 14:18 94 20 96 Nasal Cannula 3.0 32 06/25/18 12:00 97.1 70 19 118/65 (82) 100 06/25/18 09:00 Nasal Cannula 2.0 06/25/18 08:00 96.8 76 19 104/65 (78) 100 06/25/18 07:20 77 20 100 Nasal Cannula 2.0 06/25/18 07:13 32 06/25/18 07:11 Nasal Cannula 3.0 32 06/25/18 07:10 78 20 100 Nasal Cannula 3.0 32 06/25/18 07:10 100 Nasal Cannula 3.0 32 06/25/18 05:41 71 118/65 06/25/18 04:00 96.8 71 19 118/65 (82) 100 06/25/18 00:00 96.4 71 18 119/64 (82) 100 06/24/18 22:18 98.2 06/24/18 21:26 83 102/57 06/24/18 21:00 Nasal Cannula 2.0 06/24/18 20:00 98.2 83 17 102/57 (72) 100 06/24/18 19:47 79 18 99 Nasal Cannula 3.0 32 06/24/18 19:32 99 Nasal Cannula 3.0 32 06/24/18 19:32 Nasal Cannula 3.0 32 06/24/18 19:32 77 18 99 Nasal Cannula 3.0 32 06/24/18 19:32 32 Intake and Output 06/24/18 06/25/18 18:59 06:59 Intake Total 660 ml 810 ml Output Total 400 ml 30 ml Balance 260 ml 780 ml Intake Free Water 60 ml 210 ml Tube Feeding 600 ml 600 ml Output Urine Total 400 ml Drainage Total 30 ml # Bowel Movements 1 Laboratory Tests 06/25/18 05:35: Sodium Level 139, Potassium Level 5.0, Chloride Level 100, Carbon Dioxide Level 35H, Anion Gap 4L, Blood Urea Nitrogen 28H, Creatinine 0.6, Estimat Glomerular Filtration Rate > 60, Glucose Level 159H, Calcium Level 9.5 Current Medications Medications (Trade) Dose Ordered Sig/Briseida Route PRN Reason Start Time Stop Time Status Last Admin Dose Admin Acetaminophen (Tylenol) 650 mg Q4H PRN GT Mild Pain/Temp > 100.5 06/22/18 03:00 07/17/18 06:59 06/25/18 02:04 Acetylcysteine (Mucomyst) 100 mg TIDRT HHN 06/22/18 07:00 07/18/18 18:59 06/25/18 14:18 Albuterol/ Ipratropium (Albuterol/ Ipratropium) 3 ml Q4H PRN HHN Shortness of Breath 06/23/18 01:45 06/28/18 01:44 06/25/18 07:10 Ascorbic Acid (Vitamin C) 500 mg BID GT 06/22/18 09:00 07/17/18 08:59 06/25/18 10:17 Aspirin (ASA) 81 mg DAILY GT 06/22/18 09:00 07/17/18 08:59 06/25/18 10:15 Dextrose (Dextrose 50%) 25 ml Q30M PRN IV Hypoglycemia 06/21/18 23:45 07/16/18 18:44 Dextrose (Dextrose 50%) 50 ml Q30M PRN IV Hypoglycemia 06/21/18 23:45 07/16/18 18:44 Diltiazem HCl (Cardizem) 30 mg EVERY 8 HOURS GT 06/22/18 06:00 07/18/18 05:59 06/25/18 05:41 Donepezil HCl (Aricept) 10 mg BEDTIME GT 06/22/18 21:00 07/16/18 20:59 06/24/18 21:48 Heparin Sodium (Porcine) (Heparin 5000 units/ml) 5,000 units EVERY 12 HOURS SUBQ 06/22/18 09:00 07/17/18 20:59 06/25/18 10:27 Insulin Aspart (NovoLOG) Q6HR SUBQ 06/22/18 00:00 07/16/18 20:59 06/25/18 12:24 Lansoprazole (Prevacid) 30 mg BID GT 06/22/18 09:00 07/17/18 17:59 06/25/18 10:17 Minocycline HCl (Minocin) 100 mg Q12HR ORAL 06/24/18 21:00 07/01/18 20:59 06/25/18 10:24 Phosphorus (Phospha 250 Neutral) 250 mg BID ORAL 06/22/18 09:00 07/20/18 09:59 06/25/18 10:19 Quetiapine Fumarate (SEROquel) 12.5 mg Q4H PRN ORAL For Anxiety 06/22/18 01:15 07/17/18 13:14 Sitagliptin Phosphate (Januvia) 100 mg DAILY GT 06/22/18 09:00 07/17/18 08:59 06/25/18 10:16 Zinc Sulfate (Zinc Sulfate) 220 mg DAILY GT 06/22/18 09:00 07/17/18 08:59 06/25/18 10:18 Nikko Franklin MD Jun 25, 2018 16:08
--- NOTE | 2018-06-26 12:09 | Discharge Summary ---
Discharge Summary Discharge Summary _ DATE OF ADMISSION: 06/16/2018 DATE OF DISCHARGE: 06/25/2018 CONSULTANTS: Dr. Yrn Dwyer BRIEF HOSPITAL COURSE: Patient is a 68-year-old male, from senior living, had fever at the senior living 101.6. He was taken to [facility] for further evaluation. Patient has advanced dementia, nonverbal, with history of diabetes, GERD, BPH, chronic indwelling Beltran catheter, anemia, dysphagia, and multiple decubiti pressure ulcer. He was recently admitted for multifocal pneumonia due to Proteus ESBL organism. Patient is DO NOT RESUSCITATE/DO NOT INTUBATE. On evaluation at ED, he had rhonchi on examination. Blood work did not show any leukocytosis however lactic acid was 2.0. Hemoglobin was 9, hematocrit was 30. Urinalysis showed 3+ protein, 1+ ketone, negative nitrite, 2+ leukocyte esterase, 5-10 WBC, 2-4 RBC. Chest x-ray done showed worsening opacities. Antibiotic was started and patient was admitted for healthcare associated pneumonia. He was seen by mechanical engineering officer. CT of the chest was ordered. He was given round- the-clock bronchodilators and was placed on aspiration precautions. He was given heparin subcutaneous for DVT prophylaxis. ID was consulted he was continued on meropenem. He had evidence of anemia. Embossing Machine Tender was consulted. Anemia workup was done. Iron panel showed elevated ferritin. Patient had anemia due to underlying chronic disease. Total troponin was elevated to 9, albumin 2.1. Patient has hyperproteinemia. Electrophoresis was ordered. He had elevated BUN. Renal function was monitored. Patient has evidence of hypoalbuminemia and proteinuria. He was followed by soda clerk. Glucophage was placed on hold. He came in with multiple decubiti ulcer. Surgery was called to evaluate. Patient was noted to have full-thickness pressure injury stage IV to sacrum with undermining; decubitus ulcer of the left hip stage IV; and resolving full- thickness pressure injury stage III to the right hip. He was given wound care. He was placed on P200 air-fluid mattress. Recommend frequent repositioning and offloading. Patient recently had debridement of the wound done at [facility], however, still with 20-25% slough and debris. Patient with anemia and was ordered Epogen by cigarette making machine catcher. On 06/18/2018, he underwent excisional debridement of stage IV sacral decubitus ulcer with ostectomy and non- excisional debridement of stage IV left hip decubitus ulcer. A wound VAC was then applied. Wound culture showed growth of MRSA, Proteus mirabilis, acinetobacter MDR. He was given meropenem, and vancomycin. CT of the chest showed bilateral reticular nodular infiltrates in a tree-in-bud appearance usually indicative of infectious bronchiolitis, i.e. BISI. Serologies were sent. Risk of bronchoscopy outweighs potential benefit. Patient was confused and had episodes of agitation with waxing and waning of consciousness. He was seen by psychiatrist and was diagnosed with encephalopathy. He was started on Seroquel. He had an episode of hypotension. He was given albumin bolus. Urine and plasma protein electrophoresis did not show any M spike on preliminary results. AFB smear was sent 3. Patient did not require any airborne isolation precautions. Serum coccidioidomycosis antibody and urine histoplasma antigen were sent, results still pending. Bactrim was added to his regimen. Per discussion with patient's family, daughter was concerned about current quality of life. Daughter wants hospice care and recommended that SNF with hospice would be most appropriate given overall goals of care. AFB sputum 3 were negative. Repeat chest x-ray showed improvement. IV vancomycin was changed to po minocycline. Patient was eventually cleared for discharged back to senior living to continue antibiotic treatment. FINAL DIAGNOSES: Multifocal pneumonia, healthcare associated pneumonia Bilateral reticular nodular infiltrate in tree-in-bud appearance, suggestive of infectious bronchiolitis such as BISI and bronchiectasis Old CVA Dementia Dysphagia with G-tube Hypertension Coronary artery disease Protein and albumin discordance Decubitus pressure ulcer, as stated above, present on admission Acute kidney injury Anemia due to underlying chronic disease Hyperproteinemia Incontinence with Beltran catheter in place Metabolic encephalopathy Malnutrition Hypotension Proteinuria and hypoalbuminemia MRSA and acinetobacter colonization Hospice care DISPOSITION: Patient was discharged to [facility] under hospice. DISCHARGE MEDICATIONS: Refer to Discharge Medication List. I have been assigned to dictate discharge summary on this account, and I was not involved in the patient's management. Liana Gilliland NP Jun 26, 2018 12:09
== END 2018-06-25 15:50 | DRG 166 ==
LOC: EDBD 13:47 → EMR 14:26 → EDBEDREQ 14:47 → 2E 14:50 → EDBEDREQ 16:27 → 2E 06-19 20:07 → 4E 06-21 22:57
PROC: 0QB10ZZ Excision of Sacrum, Open Approach (ICD-10-PCS; principal; 2018-06-18)
PROC: 0JBM0ZZ Excision of Left Upper Leg Subcutaneous Tissue and Fascia, Open Approach (ICD-10-PCS; principal; 2018-06-18)
DX: J18.9 Pneumonia, unspecified organism (principal); L89.224 Pressure ulcer of left hip, stage 4; L89.213 Pressure ulcer of right hip, stage 3; L89.154 Pressure ulcer of sacral region, stage 4; G93.41 Metabolic encephalopathy; J96.22 Acute and chronic respiratory failure with hypercapnia; J96.21 Acute and chronic respiratory failure with hypoxia; N17.9 Acute kidney failure, unspecified; E46 Unspecified protein-calorie malnutrition; N39.0 Urinary tract infection, site not specified; Z86.73 Personal history of transient ischemic attack (TIA), and cerebral infarction without residual deficits; F03.90 Unspecified dementia, unspecified severity, without behavioral disturbance, psychotic disturbance, mood disturbance, and anxiety; R13.10 Dysphagia, unspecified; I10 Essential (primary) hypertension; I25.10 Atherosclerotic heart disease of native coronary artery without angina pectoris; D63.8 Anemia in other chronic diseases classified elsewhere; E88.09 Other disorders of plasma-protein metabolism, not elsewhere classified; R32 Unspecified urinary incontinence; I95.9 Hypotension, unspecified; Z22.322 Carrier or suspected carrier of Methicillin resistant Staphylococcus aureus; E11.9 Type 2 diabetes mellitus without complications; Z88.8 Allergy status to other drugs, medicaments and biological substances; N40.0 Benign prostatic hyperplasia without lower urinary tract symptoms; Z66 Do not resuscitate; Y95 Nosocomial condition; E11.65 Type 2 diabetes mellitus with hyperglycemia
CPT/HCPCS: 36415; 36600; 71045; 71250; 80048; 80053; 80202; 81003; 82607; 82728; 82803; 82962; 82977; 83036; 83540; 83550; 83605; 83735; 83880; 84100; 84165; 84484; 84550; 85025; 85610; 85651; 85730; 86140; 86635; 87040; 87070; 87081; 87086; 87116; 87181; 87205; 87385; 93005; 93970; 94640; 94664; 94760; 96365; 96367; 99291; C9399; J1815; J7620

== ENCOUNTER 2018-07-09 19:55 | Inpatient (IN) | payer MEDICARE, MEDICAID ==
[~2018-07-09] VITALS: Ht 160 cm; Wt 50.8 kg
[2018-07-09 19:55] VITALS: BP 118/70
[~2018-07-09 19:55] MED LIST changes: +FERROUS SULFAT325 MG ORAL; +JANUVIA25 MG ORAL; +LEVEMIR FL100 UNIT/1 SUBQ; +MINOCYCLINE HC100 MG PO; +POVIDONE IODIN TP; +ZINC SULFATE220 M1 ORAL; +[UNRECOGNIZED DRUG - OTHER] MC
--- NOTE | 2018-07-09 20:12 | Emergency Room Report ---
History of Present Illness General Chief Complaint: Fever Source: Medical Record, EMS Present Illness HPI Patient presents emergency department today because of fever. Patient currently resides at a group home. Patient was noted to be febrile and coughing the brought here further evaluation. When paramedics arrived to evaluate the patient patient actually already had resolution fever because patient had taken Tylenol. Symptoms noted to be severe. Of note patient is bedridden and nonverbal he has a G-tube. Patient is DO NOT RESUSCITATE. Symptoms noted to be moderate to severe. Patient is unable to provide any history. All history was obtained from medical records. And paramedics.No other modifying factors. No other associated signs and symptoms. No other complaints were noted. Allergies: Coded Allergies: CEFTRIAXONE (Verified Allergy, Unknown, 04/04/18) Patient History Past Medical History: DM, HTN, asthma, CVA/TIA, dementia PSxH Narrative G-tube Social History Narrative stays at a group home Reviewed Nursing Documentation: PMH: Agreed; PSxH: Agreed Nursing Documentation-PMH Hx Cardiac Problems: No Hx Hypertension: Yes Hx Asthma: Yes Hx COPD: No Hx Diabetes: Yes - dm II, Hx Cancer: No Hx Gastrointestinal Problems: Yes - dysphagia Hx Dialysis: No History Of Psychiatric Problem: Yes - dementia Hx Neurological Problems: Yes - muscle weakness, Hx Cerebrovascular Accident: Yes Hx Dementia: Yes Hx Seizures: No Review of Systems All Other Systems: limited - For mental status Physical Exam Vital Signs Date Time Temp Pulse Resp B/P (MAP) Pulse Ox O2 Delivery O2 Flow Rate FiO2 07/09/18 19:42 97.3 108 16 118/70 96 Nasal Cannula 2.0 Sp02 EP Interpretation: reviewed, normal General Appearance: moderate distress Head: normocephalic Eyes: bilateral eye normal inspection ENT: dry mucus membranes Neck: supple Respiratory: decreased breath sounds, wheezing, expiration Cardiovascular #1: tachycardia Gastrointestinal: non tender, soft, no mass Genitourinary: no CVA tenderness Musculoskeletal: normal inspection, back normal Neurologic: alert Psychiatric: depressed affect Skin: normal color, no rash Procedures Critical Care Time Critical Care Time Patient had a critical medical condition which untreated could potentially result in life or limb threatening injury. Total critical care time excluding procedures was approximately 45 minutes. Medical Decision Making Diagnostic Impression: Primary Impression: Fever Additional Impression: Do not resuscitate ER Course Patient presents emergency department today with fever. Differential considerations include sepsis, urinary tract infection, pneumonia, febrile illness, viral syndrome just to name a few.Given the severity of the patient's presentation I felt this is a highly complex patient. This patient required extensive workup. Patient's laboratory workup is pending at this time but chest x-ray shows evidence of pneumonia. Patient was started on IV antibiotics. Patient will require admission. We'll sign this case out to Dr. Reed for final disposition. EKG Diagnostic Results Rate: tachycardiac Rhythm: NSR ST Segments: no acute changes Rhythm Strip Diag. Results EP Interpretation: yes Rate: 115 Rhythm: NSR, no PVC's, no ectopy Chest X-Ray Diagnostic Results Chest X-Ray Diagnostic Results : Chest X-Ray Ordered: Yes # of Views/Limited/Complete: 1 View Indication: Shortness of Breath EP Interpretation: Yes Interpretation: other - Pulmonary congestion, left-sided infiltrate, normal bone strucre Impression: Other - Acute pneumonia Electronically Signed by: Electronically signed by Rock Do MD Last Vital Signs Date Time Temp Pulse Resp B/P (MAP) Pulse Ox O2 Delivery O2 Flow Rate FiO2 07/09/18 19:42 97.3 108 16 118/70 96 Nasal Cannula 2.0 Status: improved Disposition: ADMITTED INPATIENT Condition: Serious Rock Do MD Jul 09, 2018 20:12
[2018-07-09] MEDS ORDERED: Piperacillin/Tazobactam 3.375 GM in NS 110 ML IVPB ONE (20:15)
[2018-07-09] MEDS ORDERED: Sodium Chloride 500ML 500 ML IV ONE (20:15)
[2018-07-09 21:18] LABS: ANION GAP 10 mmol/L (5-15); BLOOD UREA NITROGEN 33 mg/dL (7-18); CALCIUM 9.7 MG/DL (8.5-10.1); CARBON DIOXIDE 29 MMOL/L (21-32); CHLORIDE 99 MMOL/L (98-107); CREATININE 0.7 MG/DL (0.55-1.30); POTASSIUM 4.7 MMOL/L (3.5-5.1); SODIUM 138 MMOL/L (136-145)
[2018-07-09 21:20] LABS: BASOPHILS % (AUTO) 1.1 % (0.0-2.0); EOSINOPHILS % (AUTO) 8.1 % (0.0-3.0); HEMATOCRIT 30.4 % (42.0-52.0); HEMOGLOBIN 9.2 G/DL (14.2-18.0); LYMPHOCYTES % (AUTO) 16.8 % (20.0-45.0); MEAN CORPUSCULAR VOLUME 84 FL (80-99); MONOCYTES % (AUTO) 5.7 % (1.0-10.0); NEUTROPHILS % (AUTO) 68.3 % (45.0-75.0); PLATELET COUNT 647 K/UL (150-450); RED BLOOD COUNT 3.61 M/UL (4.70-6.10); RED CELL DISTRIBUTION WIDTH 16.6 % (11.6-14.8); WHITE BLOOD COUNT 11.7 K/UL (4.8-10.8)
[2018-07-09 21:43] LABS: ALANINE AMINOTRANSFERASE 13 U/L (12-78); ALBUMIN 2.5 G/DL (3.4-5.0); ALBUMIN/GLOBULIN RATIO 0.3 (1.0-2.7); ALKALINE PHOSPHATASE 162 U/L (46-116); ASPARTATE AMINO TRANSFERASE 21 U/L (15-37); BILIRUBIN,TOTAL 0.2 MG/DL (0.2-1.0); CKMB 1.1 NG/ML (0.0-3.6); CREATINE KINASE 32 U/L (26-308)
[2018-07-09 22:12] LABS: APPEARANCE,URINE CLEAR; BILIRUBIN, URINE NEGATIVE (NEGATIVE); COLOR,URINE PALE YELLOW; GLUCOSE, URINE (UA) NEGATIVE (NEGATIVE); KETONES,URINE NEGATIVE (NEGATIVE); LEUKOCYTE ESTERASE ,URINE 1+ (NEGATIVE); NITRITE,URINE POSITIVE (NEGATIVE); PH,URINE 9 (4.5-8.0); PROTEIN,URINE 2+ (NEGATIVE); UROBILINOGEN,URINE NORMAL MG/DL (0.0-1.0)
[2018-07-10] MEDS ORDERED: Ipratropium 0.02% Inh Soln 2.5ml UD HHN PRN (02:00)
[2018-07-10] MEDS: NovoLOG Insulin Flexpen SUBQ SCH ×4 (06:24→21:51)
--- NOTE | 2018-07-10 06:28 | Consultation ---
Consult Note Consult Note Full Consult Note Dictated Assessment/Plan #. Anemia due to underlying chronic disease. ESR was 115 on last admission. Closely monitor for improvement. The patient has ongoing anemia, likely related to underlying decubitus ulceration. In addition to being chronically ill, bedbound, and hemoglobin, ferritin is >1000 --> transfuse if hgb <7 --> presurgery has been given 1 dose of epogen for more rapid recovery --> no hemolysis has been noted --> trend cbc daily --> new panel ordered --> discontinued ferrous sulfate #. Thrombocyytosis is likely related to underyling anemia, infection, fevers --> trend platelet count --> continue on asa low dose #. Hyperproteinemia. Given albumin dissociation --> spep and upep have been ordered to evaluate for spike in m-spike, on last admission no mspike was noted --> appreciate pulm recs --> 06/19 albumin bolus #. Hospital-acquired pneumonia on prior admission. --> repeat cxr on this admission #. Azotemia. Given fluids as needed. BUN of 33. --> s/p ivf #. Stage IV ulcerations on the left and right side. Stage IV ulcerations --> Dr. Clark aware, following #. Dysphagia, status post PEG tube. #. Incontinence with a Beltran catheter in place. --> Beltran catheter is in place. --> uro recs as needed on last admission #. DPOA wants comfort care/conservative care I appreciate the consultation. Nikolai Richards MD Jul 10, 2018 06:28
[2018-07-10] MEDS ORDERED: NovoLOG Insulin Flexpen SUBQ SCH (06:30)
[2018-07-10 07:32] LABS: BASOPHILS % (AUTO) 0.9 % (0.0-2.0); EOSINOPHILS % (AUTO) 4.7 % (0.0-3.0); HEMATOCRIT 29.5 % (42.0-52.0); LYMPHOCYTES % (AUTO) 10.3 % (20.0-45.0); MEAN CORPUSCULAR VOLUME 85 FL (80-99); MONOCYTES % (AUTO) 4.8 % (1.0-10.0); NEUTROPHILS % (AUTO) 79.2 % (45.0-75.0); PLATELET COUNT 619 K/UL (150-450); RED BLOOD COUNT 3.45 M/UL (4.70-6.10); RED CELL DISTRIBUTION WIDTH 16.6 % (11.6-14.8); WHITE BLOOD COUNT 12.7 K/UL (4.8-10.8)
[2018-07-10] MEDS: Minocycline HCl 50mg cap ORAL SCH ×2 (07:47→20:03)
[2018-07-10 08:00] VITALS: BP 117/72
[2018-07-10 08:05] LABS: ALANINE AMINOTRANSFERASE 15 U/L (12-78); ALBUMIN 2.3 G/DL (3.4-5.0); ALBUMIN/GLOBULIN RATIO 0.3 (1.0-2.7); ALKALINE PHOSPHATASE 146 U/L (46-116); ANION GAP 6 mmol/L (5-15); ASPARTATE AMINO TRANSFERASE 14 U/L (15-37); BILIRUBIN,TOTAL 0.2 MG/DL (0.2-1.0); BLOOD UREA NITROGEN 27 mg/dL (7-18); CALCIUM 9.5 MG/DL (8.5-10.1); CARBON DIOXIDE 31 MMOL/L (21-32); CHLORIDE 103 MMOL/L (98-107); CREATININE 0.6 MG/DL (0.55-1.30); POTASSIUM 4.2 MMOL/L (3.5-5.1); SODIUM 140 MMOL/L (136-145)
[2018-07-10 08:36] LABS: FERRITIN 345 NG/ML (8-388); LACTATE DEHYDROGENASE 110 U/L (81-234)
[2018-07-10 08:59] LABS: % IRON SATURATION 12 % (15-50); IRON 17 ug/dL (50-175); TOTAL IRON BINDING CAPACITY 138 ug/dL (250-450)
[2018-07-10] MEDS ORDERED: Aspirin EC 81mg tab ORAL SCH (09:00)
[2018-07-10] MEDS ORDERED: Betadine 4oz Bottle TOPIC SCH (09:00)
[2018-07-10] MEDS: Multivitamin w/Minerals tab ORAL SCH (09:21)
[2018-07-10] MEDS: Zinc Sulfate 220mg cap ORAL SCH (09:22)
[2018-07-10] MEDS: Ascorbic Acid 500mg tab GT SCH ×2 (09:23→17:14)
[2018-07-10] MEDS: Levemir Flexpen SUBQ SCH ×2 (09:39→17:16)
[2018-07-10] MEDS ORDERED: Aspirin Baby 81mg NG SCH (10:29)
--- NOTE | 2018-07-10 10:30 | History and Physical Report ---
DATE OF ADMISSION: 07/09/2018 HISTORY OF PRESENT ILLNESS: The patient admitted for fever of 101 at his snf facility. The patient found to have pneumonia as well as UTI. The patient has mild leukocytosis as well and elevated BUN as well, so being admitted to telemetry. The patient is nonverbal and cannot get any history from the patient. PAST MEDICAL HISTORY: History of decubitus ulcers multiple, history of hypertension, history of NIDDM, BPH, dementia, and iron-deficiency anemia. PAST SURGICAL HISTORY: Surgical site debridement of the wound as well as PEG. ALLERGIES: To Rocephin. MEDICATIONS: Aspirin, Norvasc, insulin, Antivert, Aricept, Januvia, and metformin. FAMILY HISTORY: Unable to obtain. SOCIAL HISTORY: Unable to obtain. REVIEW OF SYSTEMS: Unable to obtain. Nonverbal. PHYSICAL EXAMINATION: VITAL SIGNS: Temperature 98.2, pulse 78, and blood pressure 132/70. HEENT: PERRLA. NECK: Supple. CHEST: Clear to auscultation CARDIOVASCULAR: Regular rate and rhythm. ABDOMEN: Soft. G-tube site is intact. SKIN: For multiple wound description, please refer to the nursing notes. MUSCULOSKELETAL: The patient has contractures. NEUROLOGICAL: Does not follow neurological exam. LABORATORY DATA: Significant for WBC of 11.7, hemoglobin of 9.2. BUN of 33, creatinine 0.7, glucose 159. Troponin 0.003. ASSESSMENT AND PLAN: Fever at the [facility], rule out sepsis. The patient has pneumonia and UTI. I have asked Dr. Herson Palmer to see the patient for the antibiotic and for pneumonia also, Dr. Buckley will be helping out. For azotemia, Dr. Dwyer has been consulted for IV fluids. Jamia Wu M.D. DR: Srikanth JOB#: [id number] CC:
[2018-07-10] MEDS: Aspirin Baby 81mg GT SCH (11:21)
[2018-07-10] MEDS: Acetaminophen 650mg/20.3ml GT PRN ×2 (11:22→17:14)
--- NOTE | 2018-07-10 12:32 | General Progress Note ---
Assessment/Plan Problem List: (1) Cachexia ICD Codes: R64 - Cachexia SNOMED: 379486315 (2) UTI (urinary tract infection) ICD Codes: N39.0 - Urinary tract infection, site not specified SNOMED: 86510317 (3) PNA (pneumonia) ICD Codes: J18.9 - Pneumonia, unspecified organism SNOMED: 245963401 (4) Decubitus ulcer of right hip, stage 3 ICD Codes: L89.213 - Pressure ulcer of right hip, stage 3 SNOMED: 527165601, 867902614 (5) Decubitus ulcer of left hip, stage 4 ICD Codes: L89.224 - Pressure ulcer of left hip, stage 4 SNOMED: 363973633, 093951241 (6) Do not resuscitate ICD Codes: Z66 - Do not resuscitate SNOMED: 354183270 (7) Sepsis ICD Codes: A41.9 - Sepsis, unspecified organism SNOMED: 52584380 (8) Fever ICD Codes: R50.9 - Fever, unspecified SNOMED: 424193612 Status: progressing Assessment/Plan intermittent fever uti sepsis r/o pna abx per id mutiple decubs Subjective ROS Limited/Unobtainable: Yes Allergies: Coded Allergies: CEFTRIAXONE (Verified Allergy, Unknown, 04/04/18) Objective Last 24 Hour Vital Signs Date Time Temp Pulse Resp B/P (MAP) Pulse Ox O2 Delivery O2 Flow Rate FiO2 07/10/18 09:22 105 117/72 07/10/18 08:00 124 07/10/18 08:00 97.7 105 20 117/72 (87) 96 07/10/18 04:00 102 07/10/18 01:20 Nasal Cannula 2.0 07/10/18 00:25 105 07/09/18 23:35 98.9 105 23 109/63 98 Room Air 07/09/18 19:55 97.3 16 118/70 96 Nasal Cannula 2.0 07/09/18 19:55 108 16 Nasal Cannula 2.0 07/09/18 19:42 97.3 108 16 118/70 96 Nasal Cannula 2.0 Intake and Output 07/09/18 07/10/18 18:59 06:59 Output Total 750 ml Balance -750 ml Output Urine Total 750 ml Laboratory Tests 07/09/18 20:20: White Blood Count 11.7H, Red Blood Count 3.61L, Hemoglobin 9.2L, Hematocrit 30.4L, Mean Corpuscular Volume 84, Mean Corpuscular Hemoglobin 25.7L, Mean Corpuscular Hemoglobin Concent 30.4L, Red Cell Distribution Width 16.6H, Platelet Count 647H, Mean Platelet Volume 5.5L, Neutrophils (%) (Auto) 68.3, Lymphocytes (%) (Auto) 16.8L, Monocytes (%) (Auto) 5.7, Eosinophils (%) (Auto) 8.1H, Basophils (%) (Auto) 1.1, Sodium Level 138, Potassium Level 4.7, Chloride Level 99, Carbon Dioxide Level 29, Anion Gap 10, Blood Urea Nitrogen 33H, Creatinine 0.7, Estimat Glomerular Filtration Rate > 60, Glucose Level 151H, Lactic Acid Level 2.00, Calcium Level 9.7, Total Bilirubin 0.2, Aspartate Amino Transf (AST/SGOT) 21, Alanine Aminotransferase (ALT/SGPT) 13, Alkaline Phosphatase 162H, Total Creatine Kinase 32, Creatine Kinase MB 1.1, Creatine Kinase MB Relative Index 3.4, Troponin I 0.003, Total Protein 11.0H, Albumin 2.5L, Globulin 8.5, Albumin/Globulin Ratio 0.3L 07/09/18 21:55: Urine Color Pale yellow, Urine Appearance Clear, Urine pH 9, Urine Specific [place] 1.015, Urine Protein 2+H, Urine Glucose (UA) Negative, Urine Ketones Negative, Urine Blood 3+H, Urine Nitrite PositiveH, Urine Bilirubin Negative, Urine Urobilinogen Normal, Urine Leukocyte Esterase 1+H, Urine RBC 5-10H, Urine WBC 2-4, Urine Squamous Epithelial Cells None, Urine Bacteria Few 07/09/18 22:45: Lactic Acid Level 1.20 07/10/18 06:34: White Blood Count 12.7H, Red Blood Count 3.45L, Hemoglobin 9.0L, Hematocrit 29.5L, Mean Corpuscular Volume 85, Mean Corpuscular Hemoglobin 26.1L, Mean Corpuscular Hemoglobin Concent 30.6L, Red Cell Distribution Width 16.6H, Platelet Count 619H, Mean Platelet Volume 5.4L, Neutrophils (%) (Auto) 79.2H, Lymphocytes (%) (Auto) 10.3L, Monocytes (%) (Auto) 4.8, Eosinophils (%) (Auto) 4.7H, Basophils (%) (Auto) 0.9, Sodium Level 140, Potassium Level 4.2, Chloride Level 103, Carbon Dioxide Level 31, Anion Gap 6, Blood Urea Nitrogen 27H, Creatinine 0.6, Estimat Glomerular Filtration Rate > 60, Glucose Level 216H, Calcium Level 9.5, Total Bilirubin 0.2, Aspartate Amino Transf (AST/SGOT) 14L, Alanine Aminotransferase (ALT/SGPT) 15, Alkaline Phosphatase 146H, Total Protein 10.3H, Albumin 2.3L, Globulin 8.0, Albumin/Globulin Ratio 0.3L, Differential Total Cells Counted 100, Neutrophils % (Manual) 77H, Lymphocytes % (Manual) 16L, Monocytes % (Manual) 2, Eosinophils % (Manual) 5H, Basophils % ( Manual) 0, Band Neutrophils 0, Platelet Estimate IncreasedH, Platelet Morphology Normal, Hypochromasia 1+, Anisocytosis 1+ 07/10/18 07:55: Reticulocyte Count 1.2, Sickle Cell Screen [Pending], Haptoglobin [Pending], Fibrinogen 706H, Uric Acid 2.5L, Iron Level 17L, Total Iron Binding Capacity 138L, Percent Iron Saturation 12L, Unsaturated Iron Binding 121, Ferritin 345, Lactate Dehydrogenase 110, Carcinoembryonic Antigen [Pending], Vitamin B12 Level 1602H, Folate 26.2, Homocystine [Pending], Thyroid Stimulating Hormone ( TSH) 0.876 Height (Feet): 5 Height (Inches): 3.00 Weight (Pounds): 112 General Appearance: confused Cardiovascular: normal rate Respiratory/Chest: lungs clear Abdomen: soft Jamia Wu MD Jul 10, 2018 12:32
--- NOTE | 2018-07-10 13:02 | Consultation ---
Consult Note Consult Note Patient presents emergency department today because of fever. Patient currently resides at a half-way. Patient was noted to be febrile and coughing the brought here further evaluation. When paramedics arrived to evaluate the patient patient actually already had resolution fever because patient had taken Tylenol. Symptoms noted to be severe. Of note patient is bedridden and nonverbal he has a G-tube. Patient is DO NOT RESUSCITATE. Symptoms noted to be moderate to severe. Patient is unable to provide any history. All history was obtained from medical records. And paramedics.No other modifying factors. No other associated signs and symptoms. No other complaints were noted. Allergies: CEFTRIAXONE (Verified Allergy, Unknown, 04/04/18) Past Medical History: DM, HTN, asthma, CVA/TIA, dementia PSxH Narrative G-tube Social History Narrative stays at a half-way Hx Hypertension: Yes Hx Asthma: Yes Hx Diabetes: Yes - dm II, Hx Gastrointestinal Problems: Yes - dysphagia History Of Psychiatric Problem: Yes - dementia Hx Neurological Problems: Yes - muscle weakness, Hx Cerebrovascular Accident: Yes Hx Dementia: Yes examnied data reviewed Assessment/Plan Presents with fever 1) Cachexia / Malnutrition (2) Proteinuria (3) UTI (urinary tract infection) (4) Diabetes mellitus out of control (5) Dementia Pulmonary toilet Antibiotics Monitor renal parameters hold bp meds- parameters albumin bolus as needed Chava Dwyer MD Jul 10, 2018 13:02
--- NOTE | 2018-07-10 13:43 | Consultation ---
Consult Note Consult Note DATE OF CONSULTATION: 07/10/2018 PULMONARY CONSULTATION CONSULTING PHYSICIAN: Yrn Buckley M.D. REFERRING PHYSICIAN: Jamia Wu M.D. REASON FOR CONSULTATION: Pneumonia. HISTORY OF PRESENT ILLNESS: The patient is a 68-year-old male with a history of dementia, hypertension, prior CVA, TIA, G-tube dependent, who was has been admitted several times for similar complaints. He presented to the ER overnight with cough, congestion, and sputum production. His CXR is concerning for PNA. PAST MEDICAL HISTORY: 1. Dementia. 2. CVA. 3. Dysphagia, status post PEG. 4. Recurrent respiratory infections. 5. Chronic hypercapnia. 6. Diabetes. 7. CAD. 8. Hypertension. PAST SURGICAL HISTORY: Unknown. ALLERGIES: Rocephin. MEDICATIONS: Prior to admission, medications reviewed. SOCIAL HISTORY: He is a intermediate resident. No known tobacco, alcohol, or drug use. FAMILY HISTORY: Unknown and unobtainable. PHYSICAL EXAMINATION: Last 24 Hour Vital Signs Date Time Temp Pulse Resp B/P (MAP) Pulse Ox O2 Delivery O2 Flow Rate FiO2 07/10/18 09:22 105 117/72 07/10/18 08:00 124 07/10/18 08:00 97.7 105 20 117/72 (87) 96 07/10/18 04:00 102 07/10/18 01:20 Nasal Cannula 2.0 07/10/18 00:25 105 07/09/18 23:35 98.9 105 23 109/63 98 Room Air 07/09/18 19:55 97.3 16 118/70 96 Nasal Cannula 2.0 07/09/18 19:55 108 16 Nasal Cannula 2.0 07/09/18 19:42 97.3 108 16 118/70 96 Nasal Cannula 2.0 GENERAL: He is a nonverbal male, in no acute distress HEENT: Normocephalic and atraumatic. Oropharynx is clear. NECK: Supple without lymphadenopathy. CHEST: Coarse bilateral rhonchi. HEART: Regular rhythm. ABDOMEN: Soft, nontender, nondistended. Feeding tube is noted. EXTREMITIES: No cyanosis, clubbing, or edema. LABORATORY AND DIAGNOSTIC DATA: Chest x-ray bilateral infiltrates. Laboratory Tests Test 07/09/18 20:20 07/09/18 21:55 07/09/18 22:45 07/10/18 06:34 White Blood Count 11.7 K/UL (4.8-10.8) H 12.7 K/UL (4.8-10.8) H Red Blood Count 3.61 M/UL (4.70-6.10) L 3.45 M/UL (4.70-6.10) L Hemoglobin 9.2 G/DL (14.2-18.0) L 9.0 G/DL (14.2-18.0) L Hematocrit 30.4 % (42.0-52.0) L 29.5 % (42.0-52.0) L Mean Corpuscular Volume 84 FL (80-99) 85 FL (80-99) Mean Corpuscular Hemoglobin 25.7 PG (27.0-31.0) L 26.1 PG (27.0-31.0) L Mean Corpuscular Hemoglobin Concent 30.4 G/DL (32.0-36.0) L 30.6 G/DL (32.0-36.0) L Red Cell Distribution Width 16.6 % (11.6-14.8) H 16.6 % (11.6-14.8) H Platelet Count 647 K/UL (150-450) H 619 K/UL (150-450) H Mean Platelet Volume 5.5 FL (6.5-10.1) L 5.4 FL (6.5-10.1) L Neutrophils (%) (Auto) 68.3 % (45.0-75.0) 79.2 % (45.0-75.0) H Lymphocytes (%) (Auto) 16.8 % (20.0-45.0) L 10.3 % (20.0-45.0) L Monocytes (%) (Auto) 5.7 % (1.0-10.0) 4.8 % (1.0-10.0) Eosinophils (%) (Auto) 8.1 % (0.0-3.0) H 4.7 % (0.0-3.0) H Basophils (%) (Auto) 1.1 % (0.0-2.0) 0.9 % (0.0-2.0) Sodium Level 138 MMOL/L (136-145) 140 MMOL/L (136-145) Potassium Level 4.7 MMOL/L (3.5-5.1) 4.2 MMOL/L (3.5-5.1) Chloride Level 99 MMOL/L (98-107) 103 MMOL/L (98-107) Carbon Dioxide Level 29 MMOL/L (21-32) 31 MMOL/L (21-32) Anion Gap 10 mmol/L (5-15) 6 mmol/L (5-15) Blood Urea Nitrogen 33 mg/dL (7-18) H 27 mg/dL (7-18) H Creatinine 0.7 MG/DL (0.55-1.30) 0.6 MG/DL (0.55-1.30) Estimat Glomerular Filtration Rate > 60 mL/min (>60) > 60 mL/min (>60) Glucose Level 151 MG/DL (74-106) H 216 MG/DL (74-106) H Lactic Acid Level 2.00 mmol/L (0.4-2.0) 1.20 mmol/L (0.66-2.22) Calcium Level 9.7 MG/DL (8.5-10.1) 9.5 MG/DL (8.5-10.1) Total Bilirubin 0.2 MG/DL (0.2-1.0) 0.2 MG/DL (0.2-1.0) Aspartate Amino Transf (AST/SGOT) 21 U/L (15-37) 14 U/L (15-37) L Alanine Aminotransferase (ALT/SGPT) 13 U/L (12-78) 15 U/L (12-78) Alkaline Phosphatase 162 U/L (46-116) H 146 U/L (46-116) H Total Creatine Kinase 32 U/L (26-308) Creatine Kinase MB 1.1 NG/ML (0.0-3.6) Creatine Kinase MB Relative Index 3.4 Troponin I 0.003 ng/mL (0.000-0.056) Total Protein 11.0 G/DL (6.4-8.2) H 10.3 G/DL (6.4-8.2) H Albumin 2.5 G/DL (3.4-5.0) L 2.3 G/DL (3.4-5.0) L Globulin 8.5 g/dL 8.0 g/dL Albumin/Globulin Ratio 0.3 (1.0-2.7) L 0.3 (1.0-2.7) L Urine Color Pale yellow Urine Appearance Clear Urine pH 9 (4.5-8.0) Urine Specific [place] 1.015 (1.005-1.035) Urine Protein 2+ (NEGATIVE) H Urine Glucose (UA) Negative (NEGATIVE) Urine Ketones Negative (NEGATIVE) Urine Blood 3+ (NEGATIVE) H Urine Nitrite Positive (NEGATIVE) H Urine Bilirubin Negative (NEGATIVE) Urine Urobilinogen Normal MG/DL (0.0-1.0) Urine Leukocyte Esterase 1+ (NEGATIVE) H Urine RBC 5-10 /HPF (0 - 0) H Urine WBC 2-4 /HPF (0 - 0) Urine Squamous Epithelial Cells None /LPF (NONE/OCC) Urine Bacteria Few /HPF (NONE) Differential Total Cells Counted 100 Neutrophils % (Manual) 77 % (45-75) H Lymphocytes % (Manual) 16 % (20-45) L Monocytes % (Manual) 2 % (1-10) Eosinophils % (Manual) 5 % (0-3) H Basophils % (Manual) 0 % (0-2) Band Neutrophils 0 % (0-8) Platelet Estimate Increased H Platelet Morphology Normal Hypochromasia 1+ Anisocytosis 1+ Test 07/10/18 07:55 Reticulocyte Count 1.2 % (0.0-2.0) Sickle Cell Screen Pending Haptoglobin Pending Fibrinogen 706 mg/dL (200-400) H Uric Acid 2.5 MG/DL (2.6-7.2) L Iron Level 17 ug/dL (50-175) L Total Iron Binding Capacity 138 ug/dL (250-450) L Percent Iron Saturation 12 % (15-50) L Unsaturated Iron Binding 121 ug/dL (112-346) Ferritin 345 NG/ML (8-388) Lactate Dehydrogenase 110 U/L (81-234) Carcinoembryonic Antigen Pending Vitamin B12 Level 1602 PG/ML (193-986) H Folate 26.2 NG/ML (8.6-58.9) Homocystine Pending Thyroid Stimulating Hormone (TSH) 0.876 uiU/mL (0.358-3.740) ASSESSMENT: The patient is a 68-year-old male intermediate resident with acute on chronic hypoxemic hypercapnic respiratory failure, bilateral infiltrates, likely recurrent healthcare-associated pneumonia, dementia, CVA, dysphagia, hypertension, sacral ulcer and CAD. PROBLEM LIST: 1. Multifocal pneumonia, healthcare-associated pneumonia. 2. long term resident. 3. Dementia/CVA. 4. Dysphagia. 5. Hypertension, CAD. 6. Protein albumin discordance. 7. Sacral decub TREATMENT PLAN: 1. Optimize pulmonary hygiene/mobilize as tolerated. 2. Titrate down FiO2 to keep saturations greater than 90%. 3. P.r.n. BiPAP. 4. Continue antibiotics (Zosyn) per ID, follow up cultures. 5. Rnxwh-kvc-wttvr and p.r.n. bronchodilators. 6. Aspiration precautions, cautious tube feeds. 7. Monitor volumes and renal function. 8. Heparin subcutaneous for DVT prophylaxis. 9. DNR/DNI, continue discuss goals of care. Dr. Wu, thank you for allowing me to assist in the care of your patient. If I may be of any assistance in the future, please do not hesitate to ask. Mignon Turcios Ashkan L. MD Jul 10, 2018 13:43
--- NOTE | 2018-07-10 14:09 | Diagnostic Imaging Report ---
Indication: Cough Technique: One view of the chest Comparison: 06/23/2018 Findings: Bilateral interstitial and airspace disease, left greater than right, appears similar to the previous exam. Pleural spaces are clear. The heart size is normal. Impression: Bilateral interstitial and airspace disease, left greater than right, appearing similar prior study of 06/23/2018. Given evidence of fairly extensive chronic disease on prior imaging studies, uncertain as to the extent to which this represents chronic changes versus recurrent acute disease. Correlate with clinical findings This agrees with the preliminary interpretation provided by the emergency room physician
[2018-07-10] MEDS: Piperacillin/Tazobactam 3.375 GM in D5W 110 ML IVPB SCH ×2 (15:01→21:47)
--- NOTE | 2018-07-10 15:45 | Consultation ---
DATE OF CONSULTATION: 07/10/2018 HEMATOLOGY/ONCOLOGY CONSULTATION CONSULTING PHYSICIAN: Nikolai Richards M.D. REQUESTING PHYSICIAN: Jamia Wu M.D. REASON FOR CONSULTATION: Evaluation of anemia, leukocytosis, thrombocytosis. IDENTIFYING DATA: Dear Dr. Wu, The patient is a pleasant 68-year-old male. I have seen him in the past with history which is significant for CVA, TIA, dementia, asthma, hypertension, history of diabetes mellitus, who presents to the [facility], noted to have an elevated temperature in residential of 107 degrees Fahrenheit. The patient is G-tube dependent. 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 Now, he has some crackles in bilateral lung sounds. It is difficult to respond, nonverbal, but does smile occasionally. He has a history of hospital-acquired pneumonia, history of sepsis, insulin-dependent diabetes mellitus, history of dementia, history of Beltran catheter in place, most of the records obtained from EMR. He is DNR/DNI status, noted to have multifocal pneumonia on prior admission and Proteus ESBL, has been on broad-spectrum antibiotics. Hematology Service consulted for evaluation of underlying anemia as well as thrombocytosis. PAST MEDICAL HISTORY: As noted above. REVIEW OF SYSTEMS: Difficult to obtain. The patient is nonverbal. G-tube placement. FAMILY HISTORY: Not available. REVIEW OF SYSTEMS: The patient is nonverbal. ALLERGIES: Ceftriaxone. PHYSICAL EXAMINATION: VITAL SIGNS: Reviewed. GENERAL: Not in acute distress. The patient is contracted, lying in bed, bedbound, ill and lethargic. PULMONARY: Decreased breath sounds, 1 to 2+ crackles in bilateral lungs. Nasal cannula in place. CARDIOVASCULAR: Regular rate and crackles noted overlying the heart sounds. ABDOMEN: Soft, nontender, nondistended. Positive for G-tube. EXTREMITIES: No cyanosis or swelling noted. LABORATORY DATA: WBC reviewed. WBC of 11.7, hemoglobin 9.2, hematocrit 30 and platelet count 647,000. Imaging reviewed. Chest x-ray on 06/23/2018, small right-sided pleural effusion, at this time pending evaluation of the chest x-ray to be obtained. Chest x-ray pending. ASSESSMENT AND RECOMMENDATIONS: Anemia due to underlying chronic disease. Anemia of chronic disease, closely monitor and further assessment recommendations to be obtained from EMR and to be entered into the medical record. I appreciate consultation. Nikolai Richards M.D. DR: Justin JOB#: [id number] CC:
[2018-07-10] MEDS: Albuterol/Ipratropium 3ml neb HHN SCH (19:52)
[2018-07-10 20:00] VITALS: BP 101/57
--- NOTE | 2018-07-10 20:00 | Consultation ---
DATE OF CONSULTATION: 07/10/2018 INFECTIOUS DISEASE CONSULT: CONSULTING PHYSICIAN: Herson Palmer M.D. PRIMARY ATTENDING: Jamia Wu M.D. REASON FOR CONSULT: Fever. HISTORY OF PRESENT ILLNESS: This is a 68-year-old male who is a skilled nursing resident admitted yesterday because of fever. According to primary doctor, had temperature of 101.1 at nursing facility. In the hospital, he did not have fever, but has borderline leukocytosis and tachycardia. The patient is not a source of history. PAST MEDICAL HISTORY: Frequent admissions because of pneumonia. He was in the hospital in March, May, and June of this year. In the last admission in early half of June, the patient had a CT scan that showed diffuse structural changes in the lung. Past medical history also includes diabetes mellitus, hypertension, advanced dementia, and aphasia. The patient has pressure ulcer, stage IV and sacral, stage III. It was on wound VAC. ALLERGIES: Allergic to ceftriaxone, but tolerated meropenem. He got the dose of Zosyn in the ER without any side effects. CURRENT MEDICATIONS: Aricept, aspirin, amlodipine, vitamin C, Levemir insulin, metformin, multivitamin, Januvia, zinc, finasteride, loratadine, Atrovent. SOCIAL HISTORY: skilled nursing resident with poor mental and functional status, bedbound, noncommunicative. He has has a daughter who is next of kin. No other history obtainable. PHYSICAL EXAMINATION: VITAL SIGNS: Temperature 97.2, pulse 105, and blood pressure 117/72. Getting oxygen by nasal cannula. GENERAL APPEARANCE: Seems to be thin and cachectic. HEART: Tachycardic. LUNGS: Clear. ABDOMEN: Soft and nontender. There is a G-tube feeding. EXTREMITIES: No edema. Has finger clubbing. LABORATORY AND DIAGNOSTIC DATA: WBC 12.7, hemoglobin 9, hematocrit 29.5, and platelets 619. Sodium 140, potassium 4.2, chloride 103, bicarbonate 31, BUN 27, creatinine 0.6, and glucose 216. UA showed nitrite positive, leukocyte esterase 1+, wbc 2 to 4, rbc 5 to 10. Chest x-ray was done. Official report is pending, but does not show any significant change. IMPRESSION: Sepsis with fever and leukocytosis and tachycardia. Also it is not clear, but we cannot rule out early pneumonia or UTI. The patient also has pressure ulcer. Has advanced dementia. He is DNR/DNI status. Status post G-tube. RECOMMENDATION: We will continue with minocycline. We will follow up the culture. We will add Zosyn. We will discuss case with surgeon about the wound care. At the end of my exam, I thank Dr. Wu for involving me in the care of this patient. Herson Palmer M.D. DR: ENOC JOB#: [id number] CC:
[2018-07-10] MEDS: Donepezil 10mg tab GT SCH (21:47)
[2018-07-10] MEDS: Heparin 5000 units/ml inj SUBQ SCH (21:52)
[2018-07-11] VITALS: BP 113/65
[2018-07-11] MEDS: Albuterol/Ipratropium 3ml neb HHN SCH ×5 (01:58→23:43)
[2018-07-11 04:00] VITALS: BP 110/60
[2018-07-11] MEDS: Piperacillin/Tazobactam 3.375 GM in D5W 110 ML IVPB SCH ×3 (06:04→21:45)
[2018-07-11] MEDS: NovoLOG Insulin Flexpen SUBQ SCH ×4 (06:11→20:14)
[2018-07-11] MEDS: Minocycline HCl 50mg cap ORAL SCH ×2 (06:12→20:12)
--- NOTE | 2018-07-11 06:55 | General Progress Note ---
Assessment/Plan Status: stable Assessment/Plan #. Anemia due to underlying chronic disease. ESR was 115 on last admission. Closely monitor for improvement. The patient has ongoing anemia, likely related to underlying decubitus ulceration. In addition to being chronically ill, bedbound, and hemoglobin, ferritin is >1000 --> transfuse if hgb <7 --> presurgery has been given 1 dose of epogen for more rapid recovery --> no hemolysis has been noted --> trend cbc daily --> new panel ordered. New ferritin at 345 --> discontinued ferrous sulfate #. Thrombocytosis is likely related to underlying anemia, infection, fevers --> trend platelet count --> continue on asa low dose #. Hyperproteinemia. Given albumin dissociation --> spep and upep have been ordered to evaluate for spike in m-spike, on last admission no mspike was noted --> appreciate pulm recs --> 06/19 albumin bolus #. Hospital-acquired pneumonia on prior admission. --> repeat cxr on this admission #. Azotemia. Given fluids as needed. BUN of 33. --> s/p ivf #. Stage IV ulcerations on the left and right side. Stage IV ulcerations --> Dr. Clark aware, following #. Dysphagia, status post PEG tube. #. Incontinence with a Beltran catheter in place. --> Beltran catheter is in place. --> uro recs as needed on last admission #. DPOA wants comfort care/conservative care GREATLY APPRECIATE CONSULTATION Subjective Date patient seen: Jul 11, 2018 ROS Limited/Unobtainable: Yes Hematologic/Lymphatic: Reports: anemia Allergies: Coded Allergies: CEFTRIAXONE (Verified Allergy, Unknown, 04/04/18) Subjective No acute events. H/H stable. VS stable. Objective Last 24 Hour Vital Signs Date Time Temp Pulse Resp B/P (MAP) Pulse Ox O2 Delivery O2 Flow Rate FiO2 07/11/18 04:00 98.3 92 18 110/60 (77) 98 07/11/18 04:00 88 07/11/18 02:08 93 20 99 Nasal Cannula 2.0 28 07/11/18 01:56 95 24 98 Nasal Cannula 2.0 99 07/11/18 00:00 85 07/11/18 00:00 98.4 97 19 113/65 (81) 97 07/10/18 21:00 Nasal Cannula 2.0 07/10/18 20:09 90 20 99 Nasal Cannula 2.0 28 07/10/18 20:08 Nasal Cannula 2.0 28 07/10/18 20:08 99 Nasal Cannula 2.0 28 07/10/18 20:00 98.2 93 18 101/57 (72) 100 07/10/18 20:00 90 07/10/18 19:59 92 20 Nasal Cannula 2.0 07/10/18 19:58 92 24 99 Nasal Cannula 2.0 99 07/10/18 17:55 97.7 07/10/18 16:00 114 07/10/18 12:00 121 07/10/18 09:22 105 117/72 07/10/18 09:00 Nasal Cannula 2.0 07/10/18 08:00 124 07/10/18 08:00 97.7 105 20 117/72 (87) 96 Intake and Output 07/10/18 07/11/18 19:00 07:00 Output Total 800 ml Balance -800 ml Output Urine Total 800 ml # Voids 1 # Bowel Movements 2 1 Laboratory Tests 07/10/18 07:55: Reticulocyte Count 1.2, Sickle Cell Screen [Pending], Haptoglobin [Pending], Fibrinogen 706H, Uric Acid 2.5L, Iron Level 17L, Total Iron Binding Capacity 138L, Percent Iron Saturation 12L, Unsaturated Iron Binding 121, Ferritin 345, Lactate Dehydrogenase 110, C-Reactive Protein, Quantitative 16.8H, Carcinoembryonic Antigen [Pending], Vitamin B12 Level 1602H, Folate 26.2, Homocystine [Pending], Thyroid Stimulating Hormone (TSH) 0.876 07/10/18 15:50: Arterial Blood pH 7.537H, Arterial Blood Partial Pressure CO2 35.3, Arterial Blood Partial Pressure O2 116.5H, Arterial Blood HCO3 29.3H, Arterial Blood Oxygen Saturation 98.6, Arterial Blood Base Excess 6.4H, Daryl Test Positive Height (Feet): 5 Height (Inches): 3.00 Weight (Pounds): 112 Objective PHYSICAL EXAMINATION: VITAL SIGNS: Reviewed. GENERAL: Not in acute distress. The patient is contracted, lying in bed, bedbound, ill and lethargic. PULMONARY: Decreased breath sounds, 1 to 2+ crackles in bilateral lungs. Nasal cannula in place. CARDIOVASCULAR: Regular rate and crackles noted overlying the heart sounds. ABDOMEN: Soft, nontender, nondistended. Positive for G-tube. EXTREMITIES: No cyanosis or swelling noted Nikolai Richards MD Jul 11, 2018 06:55
[2018-07-11 08:00] VITALS: BP 109/60
[2018-07-11] MEDS: Zinc Sulfate 220mg cap ORAL SCH (08:27)
[2018-07-11] MEDS: Aspirin Baby 81mg GT SCH (08:28)
[2018-07-11] MEDS: Ascorbic Acid 500mg tab GT SCH ×2 (08:28→17:12)
[2018-07-11] MEDS: Multivitamin w/Minerals tab ORAL SCH (08:29)
[2018-07-11] MEDS: Heparin 5000 units/ml inj SUBQ SCH ×2 (08:31→20:13)
[2018-07-11] MEDS: Levemir Flexpen SUBQ SCH ×2 (08:41→18:38)
[2018-07-11 08:53] LABS: ALANINE AMINOTRANSFERASE 11 U/L (12-78); ALBUMIN 2.3 G/DL (3.4-5.0); ALBUMIN/GLOBULIN RATIO 0.3 (1.0-2.7); ALKALINE PHOSPHATASE 156 U/L (46-116); ANION GAP 5 mmol/L (5-15); ASPARTATE AMINO TRANSFERASE 15 U/L (15-37); BILIRUBIN,TOTAL 0.2 MG/DL (0.2-1.0); BLOOD UREA NITROGEN 30 mg/dL (7-18); CALCIUM 9.3 MG/DL (8.5-10.1); CARBON DIOXIDE 34 MMOL/L (21-32); CHLORIDE 102 MMOL/L (98-107); CREATININE 0.6 MG/DL (0.55-1.30); PHOSPHORUS 3.7 MG/DL (2.5-4.9); POTASSIUM 4.1 MMOL/L (3.5-5.1); SODIUM 141 MMOL/L (136-145)
[2018-07-11 09:37] LABS: EOSINOPHILS % (AUTO) 11.2 % (0.0-3.0); HEMATOCRIT 29.4 % (42.0-52.0); LYMPHOCYTES % (AUTO) 19.8 % (20.0-45.0); MEAN CORPUSCULAR VOLUME 86 FL (80-99); MONOCYTES % (AUTO) 4.4 % (1.0-10.0); NEUTROPHILS % (AUTO) 63.5 % (45.0-75.0); PLATELET COUNT 570 K/UL (150-450); RED BLOOD COUNT 3.43 M/UL (4.70-6.10); RED CELL DISTRIBUTION WIDTH 16.5 % (11.6-14.8); WHITE BLOOD COUNT 9.4 K/UL (4.8-10.8)
[2018-07-11 12:00] VITALS: BP 105/59
--- NOTE | 2018-07-11 14:59 | Nephrology Progress Note ---
Assessment/Plan Problem List: (1) UTI (urinary tract infection) (2) Cachexia (3) Proteinuria (4) Functional quadriplegia Assessment Presents with fever 1) Cachexia / Malnutrition (2) Proteinuria (3) UTI (urinary tract infection) (4) Diabetes mellitus out of control (5) Dementia Plan Pulmonary toilet Antibiotics Monitor renal parameters hold bp meds- parameters albumin bolus as needed Subjective ROS Limited/Unobtainable: No Constitutional: Reports: malaise, weakness Objective Objective Last 24 Hour Vital Signs Date Time Temp Pulse Resp B/P (MAP) Pulse Ox O2 Delivery O2 Flow Rate FiO2 07/11/18 12:53 100 20 100 Nasal Cannula 2.0 28 07/11/18 12:41 95 20 98 Nasal Cannula 2.0 28 07/11/18 12:00 97.1 97 22 105/59 (74) 99 07/11/18 12:00 95 07/11/18 09:00 Nasal Cannula 2.0 07/11/18 08:29 95 109/60 07/11/18 08:12 96 22 100 Nasal Cannula 2.0 28 07/11/18 08:01 99 Nasal Cannula 2.0 28 07/11/18 08:01 Nasal Cannula 2.0 28 07/11/18 08:01 92 22 99 Nasal Cannula 2.0 28 07/11/18 08:00 97 07/11/18 08:00 97.6 95 20 109/60 (76) 99 07/11/18 04:00 98.3 92 18 110/60 (77) 98 07/11/18 04:00 88 07/11/18 02:08 93 20 99 Nasal Cannula 2.0 28 07/11/18 01:56 95 24 98 Nasal Cannula 2.0 99 07/11/18 00:00 85 07/11/18 00:00 98.4 97 19 113/65 (81) 97 07/10/18 21:00 Nasal Cannula 2.0 07/10/18 20:09 90 20 99 Nasal Cannula 2.0 28 07/10/18 20:08 Nasal Cannula 2.0 28 07/10/18 20:08 99 Nasal Cannula 2.0 28 07/10/18 20:00 98.2 93 18 101/57 (72) 100 07/10/18 20:00 90 07/10/18 19:59 92 20 Nasal Cannula 2.0 07/10/18 19:58 92 24 99 Nasal Cannula 2.0 99 07/10/18 17:55 97.7 07/10/18 16:00 114 Intake and Output 07/10/18 07/11/18 18:59 06:59 Output Total 800 ml Balance -800 ml Output Urine Total 800 ml # Voids 1 # Bowel Movements 2 1 Laboratory Tests 07/10/18 15:50: Arterial Blood pH 7.537H, Arterial Blood Partial Pressure CO2 35.3, Arterial Blood Partial Pressure O2 116.5H, Arterial Blood HCO3 29.3H, Arterial Blood Oxygen Saturation 98.6, Arterial Blood Base Excess 6.4H, Daryl Test Positive 07/11/18 05:50: White Blood Count 9.4, Red Blood Count 3.43L, Hemoglobin 9.0L, Hematocrit 29.4L , Mean Corpuscular Volume 86, Mean Corpuscular Hemoglobin 26.3L, Mean Corpuscular Hemoglobin Concent 30.7L, Red Cell Distribution Width 16.5H, Platelet Count 570H, Mean Platelet Volume 5.1L, Neutrophils (%) (Auto) 63.5, Lymphocytes (%) (Auto) 19.8L, Monocytes (%) (Auto) 4.4, Eosinophils (%) (Auto) 11.2H, Basophils (%) (Auto) 1.0, Sodium Level 141, Potassium Level 4.1, Chloride Level 102, Carbon Dioxide Level 34H, Anion Gap 5, Blood Urea Nitrogen 30H, Creatinine 0.6, Estimat Glomerular Filtration Rate > 60, Glucose Level 151H , Uric Acid 2.1L, Calcium Level 9.3, Phosphorus Level 3.7, Magnesium Level 2.1, Total Bilirubin 0.2, Aspartate Amino Transf (AST/SGOT) 15, Alanine Aminotransferase (ALT/SGPT) 11L, Alkaline Phosphatase 156H, Pro-B-Type Natriuretic Peptide 200H, Total Protein 10.3H, Albumin 2.3L, Globulin 8.0, Albumin/Globulin Ratio 0.3L Height (Feet): 5 Height (Inches): 3.00 Weight (Pounds): 112 General Appearance: no apparent distress, lethargic Cardiovascular: tachycardia Respiratory/Chest: decreased breath sounds Abdomen: soft Chava Dwyer MD Jul 11, 2018 14:59
--- NOTE | 2018-07-11 15:59 | Infectious Diseases Prog Note ---
Assessment/Plan Assessment/Plan A; Sepsis ? Pneumonia Pressure ulcer Dementia Anemia P: Continue Zosyn & Minocycline Will f/u cultures R hip x-ray to rule out osteomyelitis Subjective ROS Limited/Unobtainable: Yes Constitutional: Reports: no symptoms Allergies: Coded Allergies: CEFTRIAXONE (Verified Allergy, Unknown, 04/04/18) Objective Vital Signs Last 24 Hour Vital Signs Date Time Temp Pulse Resp B/P (MAP) Pulse Ox O2 Delivery O2 Flow Rate FiO2 07/11/18 12:53 100 20 100 Nasal Cannula 2.0 28 07/11/18 12:41 95 20 98 Nasal Cannula 2.0 28 07/11/18 12:00 97.1 97 22 105/59 (74) 99 07/11/18 12:00 95 07/11/18 09:00 Nasal Cannula 2.0 07/11/18 08:29 95 109/60 07/11/18 08:12 96 22 100 Nasal Cannula 2.0 28 07/11/18 08:01 99 Nasal Cannula 2.0 28 07/11/18 08:01 Nasal Cannula 2.0 28 07/11/18 08:01 92 22 99 Nasal Cannula 2.0 28 07/11/18 08:00 97 07/11/18 08:00 97.6 95 20 109/60 (76) 99 07/11/18 04:00 98.3 92 18 110/60 (77) 98 07/11/18 04:00 88 07/11/18 02:08 93 20 99 Nasal Cannula 2.0 28 07/11/18 01:56 95 24 98 Nasal Cannula 2.0 99 07/11/18 00:00 85 07/11/18 00:00 98.4 97 19 113/65 (81) 97 07/10/18 21:00 Nasal Cannula 2.0 07/10/18 20:09 90 20 99 Nasal Cannula 2.0 28 07/10/18 20:08 Nasal Cannula 2.0 28 07/10/18 20:08 99 Nasal Cannula 2.0 28 07/10/18 20:00 98.2 93 18 101/57 (72) 100 07/10/18 20:00 90 07/10/18 19:59 92 20 Nasal Cannula 2.0 07/10/18 19:58 92 24 99 Nasal Cannula 2.0 99 07/10/18 17:55 97.7 07/10/18 16:00 114 Height (Feet): 5 Height (Inches): 3.00 Weight (Pounds): 112 General Appearance: no acute distress HEENT: mucous membranes moist Respiratory/Chest: lungs clear Cardiovascular: normal rate Abdomen: soft, non tender, other - GT feeding Extremities: no edema Skin: ulcers Neurologic/Psychiatric: aphasia Microbiology Date/Time Source Procedure Growth Status 07/09/18 20:30 Blood Blood Culture - Preliminary NO GROWTH AFTER 24 HOURS Resulted 07/09/18 20:20 Blood Blood Culture - Preliminary NO GROWTH AFTER 24 HOURS Resulted 07/10/18 00:30 Sacral Wound Gram Stain - Final Resulted 07/10/18 00:30 Wound Culture - Preliminary Gram Negative Bacillus 1 Gram Negative Bacillus 2 Resulted 07/09/18 14:28 Rectum Received Laboratory Tests Test 07/11/18 05:50 White Blood Count 9.4 K/UL (4.8-10.8) Red Blood Count 3.43 M/UL (4.70-6.10) L Hemoglobin 9.0 G/DL (14.2-18.0) L Hematocrit 29.4 % (42.0-52.0) L Mean Corpuscular Volume 86 FL (80-99) Mean Corpuscular Hemoglobin 26.3 PG (27.0-31.0) L Mean Corpuscular Hemoglobin Concent 30.7 G/DL (32.0-36.0) L Red Cell Distribution Width 16.5 % (11.6-14.8) H Platelet Count 570 K/UL (150-450) H Mean Platelet Volume 5.1 FL (6.5-10.1) L Neutrophils (%) (Auto) 63.5 % (45.0-75.0) Lymphocytes (%) (Auto) 19.8 % (20.0-45.0) L Monocytes (%) (Auto) 4.4 % (1.0-10.0) Eosinophils (%) (Auto) 11.2 % (0.0-3.0) H Basophils (%) (Auto) 1.0 % (0.0-2.0) Sodium Level 141 MMOL/L (136-145) Potassium Level 4.1 MMOL/L (3.5-5.1) Chloride Level 102 MMOL/L (98-107) Carbon Dioxide Level 34 MMOL/L (21-32) H Anion Gap 5 mmol/L (5-15) Blood Urea Nitrogen 30 mg/dL (7-18) H Creatinine 0.6 MG/DL (0.55-1.30) Estimat Glomerular Filtration Rate > 60 mL/min (>60) Glucose Level 151 MG/DL (74-106) H Uric Acid 2.1 MG/DL (2.6-7.2) L Calcium Level 9.3 MG/DL (8.5-10.1) Phosphorus Level 3.7 MG/DL (2.5-4.9) Magnesium Level 2.1 MG/DL (1.8-2.4) Total Bilirubin 0.2 MG/DL (0.2-1.0) Aspartate Amino Transf (AST/SGOT) 15 U/L (15-37) Alanine Aminotransferase (ALT/SGPT) 11 U/L (12-78) L Alkaline Phosphatase 156 U/L (46-116) H Pro-B-Type Natriuretic Peptide 200 pg/mL (0-125) H Total Protein 10.3 G/DL (6.4-8.2) H Albumin 2.3 G/DL (3.4-5.0) L Globulin 8.0 g/dL Albumin/Globulin Ratio 0.3 (1.0-2.7) L Current Medications Medications (Trade) Dose Ordered Sig/Briseida Route PRN Reason Start Time Stop Time Status Last Admin Dose Admin Acetaminophen (Tylenol) 650 mg Q4H PRN GT wound care 07/10/18 02:00 08/09/18 01:59 07/10/18 17:14 Albuterol/ Ipratropium (Albuterol/ Ipratropium) 3 ml Q6HRT HHN 07/10/18 19:00 07/15/18 18:59 07/11/18 12:41 Amlodipine Besylate (Norvasc) 10 mg DAILY GT 07/11/18 09:00 08/09/18 08:59 07/11/18 08:29 Ascorbic Acid (Vitamin C) 500 mg BID GT 07/10/18 09:00 08/09/18 08:59 07/11/18 08:28 Aspirin (ASA) 81 mg DAILY GT 07/10/18 10:29 08/09/18 10:28 07/11/18 08:28 Dextrose (Dextrose 50%) 25 ml Q30M PRN IV Hypoglycemia 07/10/18 01:30 08/09/18 01:29 Dextrose (Dextrose 50%) 50 ml Q30M PRN IV Hypoglycemia 07/10/18 01:30 08/09/18 01:29 Donepezil HCl (Aricept) 10 mg BEDTIME GT 07/10/18 21:00 08/09/18 20:59 07/10/18 21:47 Finasteride (Proscar) 5 mg DAILY ORAL 07/10/18 09:00 08/09/18 08:59 07/11/18 08:27 Heparin Sodium (Porcine) (Heparin 5000 units/ml) 5,000 units EVERY 12 HOURS SUBQ 07/10/18 21:00 08/09/18 20:59 07/11/18 08:31 Insulin Aspart (NovoLOG) BEFORE MEALS AND HS SUBQ 07/10/18 06:30 08/09/18 06:29 07/11/18 11:57 Insulin Detemir (Levemir) 6 units BID SUBQ 07/10/18 09:00 08/09/18 08:59 07/11/18 08:41 Ipratropium [place] (Atrovent) 500 mcg Q4H PRN HHN Shortness of Breath 07/10/18 02:00 07/15/18 01:59 Loratadine (Claritin 10mg) 10 mg DAILY ORAL 07/10/18 09:00 08/09/18 08:59 07/11/18 08:27 Metformin HCl (Glucophage) 850 mg DAILY GT 07/10/18 09:00 08/09/18 08:59 07/11/18 08:28 Minocycline HCl (Minocin) 100 mg Q12HR@0700,1900 ORAL 07/10/18 07:00 07/17/18 06:59 07/11/18 06:12 Multivitamins Therapeutic (Therapeutic Multivitamin) 1 ea DAILY ORAL 07/10/18 09:00 08/09/18 08:59 07/11/18 08:29 Piperacillin Sod/ Tazobactam Sod 3.375 gm/Dextrose 110 ml @ 27.5 mls/hr EVERY 8 HOURS IVPB 07/10/18 14:00 07/15/18 13:59 07/11/18 13:23 Sitagliptin Phosphate (Januvia) 100 mg DAILY ORAL 07/10/18 09:00 08/09/18 08:59 07/11/18 08:28 Zinc Sulfate (Zinc Sulfate) 220 mg DAILY ORAL 07/10/18 09:00 08/09/18 08:59 07/11/18 08:27 Herson Palmer MD Jul 11, 2018 15:59
--- NOTE | 2018-07-11 16:08 | Pulmonology Progress Note ---
Assessment/Plan Assessment/Plan ASSESSMENT: The patient is a 68-year-old male [facility] resident with acute on chronic hypoxemic hypercapnic respiratory failure, bilateral infiltrates, likely recurrent healthcare-associated pneumonia, dementia, CVA, dysphagia, hypertension, sacral ulcer and CAD. PROBLEM LIST: 1. Multifocal pneumonia, healthcare-associated pneumonia. 2. shelter resident. 3. Dementia/CVA. 4. Dysphagia. 5. Hypertension, CAD. 6. Protein albumin discordance. 7. Sacral decub TREATMENT PLAN: 1. Optimize pulmonary hygiene/mobilize as tolerated. 2. Titrate down FiO2 to keep saturations greater than 90%. 3. P.r.n. BiPAP. 4. Continue antibiotics (Zosyn & Darrel) per ID, follow up cultures. 5. Zmlxe-uzf-yfuey and p.r.n. bronchodilators. 6. Aspiration precautions, cautious tube feeds. 7. Monitor volumes and renal function. 8. Heparin subcutaneous for DVT prophylaxis. 9. DNR/DNI, continue discuss goals of care. Subjective Allergies: Coded Allergies: CEFTRIAXONE (Verified Allergy, Unknown, 04/04/18) Subjective AFVSS, O2 needs stable, monse TF"s, no distress, no cough, no FC Objective Last 24 Hour Vital Signs Date Time Temp Pulse Resp B/P (MAP) Pulse Ox O2 Delivery O2 Flow Rate FiO2 07/11/18 12:53 100 20 100 Nasal Cannula 2.0 28 07/11/18 12:41 95 20 98 Nasal Cannula 2.0 28 07/11/18 12:00 97.1 97 22 105/59 (74) 99 07/11/18 12:00 95 07/11/18 09:00 Nasal Cannula 2.0 07/11/18 08:29 95 109/60 07/11/18 08:12 96 22 100 Nasal Cannula 2.0 28 07/11/18 08:01 99 Nasal Cannula 2.0 28 07/11/18 08:01 Nasal Cannula 2.0 28 07/11/18 08:01 92 22 99 Nasal Cannula 2.0 28 07/11/18 08:00 97 07/11/18 08:00 97.6 95 20 109/60 (76) 99 07/11/18 04:00 98.3 92 18 110/60 (77) 98 07/11/18 04:00 88 07/11/18 02:08 93 20 99 Nasal Cannula 2.0 28 07/11/18 01:56 95 24 98 Nasal Cannula 2.0 99 07/11/18 00:00 85 07/11/18 00:00 98.4 97 19 113/65 (81) 97 07/10/18 21:00 Nasal Cannula 2.0 07/10/18 20:09 90 20 99 Nasal Cannula 2.0 28 07/10/18 20:08 Nasal Cannula 2.0 28 07/10/18 20:08 99 Nasal Cannula 2.0 28 07/10/18 20:00 98.2 93 18 101/57 (72) 100 07/10/18 20:00 90 07/10/18 19:59 92 20 Nasal Cannula 2.0 07/10/18 19:58 92 24 99 Nasal Cannula 2.0 99 07/10/18 17:55 97.7 Intake and Output 07/10/18 07/11/18 18:59 06:59 Output Total 800 ml Balance -800 ml Output Urine Total 800 ml # Voids 1 # Bowel Movements 2 1 General Appearance: no acute distress, cachetic HEENT: normocephalic, atraumatic, mucous membranes moist Respiratory/Chest: rhonchi Cardiovascular: normal peripheral pulses, normal rate, regular rhythm Abdomen: normal bowel sounds, soft, non tender, no organomegaly, non distended , no mass, other - GT Extremities: no cyanosis, no clubbing, no edema Microbiology Date/Time Source Procedure Growth Status 07/09/18 20:30 Blood Blood Culture - Preliminary NO GROWTH AFTER 24 HOURS Resulted 07/09/18 20:20 Blood Blood Culture - Preliminary NO GROWTH AFTER 24 HOURS Resulted 07/10/18 00:30 Sacral Wound Gram Stain - Final Resulted 07/10/18 00:30 Wound Culture - Preliminary Gram Negative Bacillus 1 Gram Negative Bacillus 2 Resulted 07/09/18 14:28 Rectum Received Laboratory Tests 07/11/18 05:50: White Blood Count 9.4, Red Blood Count 3.43L, Hemoglobin 9.0L, Hematocrit 29.4L , Mean Corpuscular Volume 86, Mean Corpuscular Hemoglobin 26.3L, Mean Corpuscular Hemoglobin Concent 30.7L, Red Cell Distribution Width 16.5H, Platelet Count 570H, Mean Platelet Volume 5.1L, Neutrophils (%) (Auto) 63.5, Lymphocytes (%) (Auto) 19.8L, Monocytes (%) (Auto) 4.4, Eosinophils (%) (Auto) 11.2H, Basophils (%) (Auto) 1.0, Sodium Level 141, Potassium Level 4.1, Chloride Level 102, Carbon Dioxide Level 34H, Anion Gap 5, Blood Urea Nitrogen 30H, Creatinine 0.6, Estimat Glomerular Filtration Rate > 60, Glucose Level 151H , Uric Acid 2.1L, Calcium Level 9.3, Phosphorus Level 3.7, Magnesium Level 2.1, Total Bilirubin 0.2, Aspartate Amino Transf (AST/SGOT) 15, Alanine Aminotransferase (ALT/SGPT) 11L, Alkaline Phosphatase 156H, Pro-B-Type Natriuretic Peptide 200H, Total Protein 10.3H, Albumin 2.3L, Globulin 8.0, Albumin/Globulin Ratio 0.3L Current Medications Medications (Trade) Dose Ordered Sig/Briseida Route PRN Reason Start Time Stop Time Status Last Admin Dose Admin Acetaminophen (Tylenol) 650 mg Q4H PRN GT wound care 07/10/18 02:00 08/09/18 01:59 07/10/18 17:14 Albuterol/ Ipratropium (Albuterol/ Ipratropium) 3 ml Q6HRT HHN 07/10/18 19:00 07/15/18 18:59 07/11/18 12:41 Amlodipine Besylate (Norvasc) 10 mg DAILY GT 07/11/18 09:00 08/09/18 08:59 07/11/18 08:29 Ascorbic Acid (Vitamin C) 500 mg BID GT 07/10/18 09:00 08/09/18 08:59 07/11/18 08:28 Aspirin (ASA) 81 mg DAILY GT 07/10/18 10:29 08/09/18 10:28 07/11/18 08:28 Dextrose (Dextrose 50%) 25 ml Q30M PRN IV Hypoglycemia 07/10/18 01:30 08/09/18 01:29 Dextrose (Dextrose 50%) 50 ml Q30M PRN IV Hypoglycemia 07/10/18 01:30 08/09/18 01:29 Donepezil HCl (Aricept) 10 mg BEDTIME GT 07/10/18 21:00 08/09/18 20:59 07/10/18 21:47 Finasteride (Proscar) 5 mg DAILY ORAL 07/10/18 09:00 08/09/18 08:59 07/11/18 08:27 Heparin Sodium (Porcine) (Heparin 5000 units/ml) 5,000 units EVERY 12 HOURS SUBQ 07/10/18 21:00 08/09/18 20:59 07/11/18 08:31 Insulin Aspart (NovoLOG) BEFORE MEALS AND HS SUBQ 07/10/18 06:30 08/09/18 06:29 07/11/18 11:57 Insulin Detemir (Levemir) 6 units BID SUBQ 07/10/18 09:00 08/09/18 08:59 07/11/18 08:41 Ipratropium [place] (Atrovent) 500 mcg Q4H PRN HHN Shortness of Breath 07/10/18 02:00 07/15/18 01:59 Loratadine (Claritin 10mg) 10 mg DAILY ORAL 07/10/18 09:00 08/09/18 08:59 07/11/18 08:27 Metformin HCl (Glucophage) 850 mg DAILY GT 07/10/18 09:00 08/09/18 08:59 07/11/18 08:28 Minocycline HCl (Minocin) 100 mg Q12HR@0700,1900 ORAL 07/10/18 07:00 07/17/18 06:59 07/11/18 06:12 Multivitamins Therapeutic (Therapeutic Multivitamin) 1 ea DAILY ORAL 07/10/18 09:00 08/09/18 08:59 07/11/18 08:29 Piperacillin Sod/ Tazobactam Sod 3.375 gm/Dextrose 110 ml @ 27.5 mls/hr EVERY 8 HOURS IVPB 07/10/18 14:00 07/15/18 13:59 07/11/18 13:23 Sitagliptin Phosphate (Januvia) 100 mg DAILY ORAL 07/10/18 09:00 08/09/18 08:59 07/11/18 08:28 Zinc Sulfate (Zinc Sulfate) 220 mg DAILY ORAL 07/10/18 09:00 08/09/18 08:59 07/11/18 08:27 Yrn Buckley MD Jul 11, 2018 16:08
[2018-07-11 16:29] VITALS: BP 113/68
--- NOTE | 2018-07-11 17:02 | Diagnostic Imaging Report ---
Indication: Right hip pain Technique: One view of the right hip Comparison: none Findings: Exam is very limited, as only one view of the right hip performed, apparently per referring physician request. No gross acute fractures. No dislocations. The joint spaces are preserved. No definite osteolytic process, osseous erosions, or unusual periosteal reaction. There is a Beltran catheter Impression: Very limited exam. No gross acute bony trauma No plain radiographic evidence of acute osteomyelitis. Note, however, limited sensitivity of plain radiographs for such. Consider MRI or bone scan for further evaluation if there is high clinical suspicion
--- NOTE | 2018-07-11 18:21 | Consultation ---
History of Present Illness General Date patient seen: Jul 11, 2018 Chief Complaint: Fever Present Illness HPI 68 year old male well known to me from prior hospitalization. residential resident with multiple medical comorbidities. Has had fevers and pna in past prior. Has had worsening decubitus ulcer which I have debrided in the past and cared for during hospital stay with good improvement. He currently presented for medical care and management. No wound vac currently. called to evaluate progress of wound and assist with care. patient seen, chart reviewed, patient examined. Allergies: Coded Allergies: CEFTRIAXONE (Verified Allergy, Unknown, 04/04/18) Medication History Scheduled Amlodipine Besylate* (Amlodipine Besylate*), 10 MG GT DAILY, (Reported) Arginine/Ascorbate Sod/Abigail AC (Arginaid Powder), 1 EACH GT BID, (Reported) Ascorbic Acid* (Vitamin C*), 500 MG GT BID, (Reported) Aspirin* (Aspir 81*), 81 MG GT DAILY, (Reported) Cranberry Extract (Cranberry Extract), 425 MG GT BID, (Reported) Donepezil HCl (Aricept), 10 MG GT BEDTIME, (Reported) Dutasteride (Avodart), 0.5 MG GT DAILY, (Reported) Ferrous Sulfate* (Ferrous Sulfate*), 325 MG ORAL TID, (Reported) Insulin Detemir (Levemir Flexpen), 6 UNITS SUBQ BID, (Reported) Loratadine (Loratadine), 10 MG GT DAILY, (Reported) Metformin Hcl* (Metformin Hcl*), 850 MG GT DAILY, (Reported) Minocycline Hcl (Minocycline Hcl), 100 MG PO Q12HR, (Reported) Multivitamin With Minerals (Multivitamins With Minerals*), 1 TAB GT DAILY, ( Reported) Povidone-Iodine (Povidone-Iodine), 1 APPLIC TP DAILY, (Reported) Sitagliptin* (Januvia*), 100 MG ORAL DAILY, (Reported) Zinc Sulfate (Zinc Sulfate*), 220 MG ORAL DAILY, (Reported) Scheduled PRN Acetaminophen* (Acetaminophen 325MG Tablet*), 650 MG GT Q4H PRN for wound care, (Reported) Ipratropium [place] 0.5MG/2.5ML (Ipratropium [place] 0.5MG/2.5ML), 0.5 MG HHN Q4HR PRN for Shortness of Breath, (Reported) Miscellaneous Medications Collagen, Hydrolysate (Bovine) (Collagen Hydrolysate), 100 GM MC, (Reported) Insulin Aspart* (Novolog*), 0 SUBQ, (Reported) Patient History Limited by: medical condition History Provided By: Medical Record, PMD Healthcare decision maker Resuscitation status Do Not Resuscitate Advanced Directive on File No Past Medical/Surgical History Past Medical/Surgical History: (1) Acute renal failure (2) Decubitus skin ulcer (3) Diabetes mellitus out of control (4) HCAP (healthcare-associated pneumonia) (5) Sacral decubitus ulcer, stage IV (6) 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 (7) Do not resuscitate (8) Cachexia (9) Fever (10) Sepsis (11) UTI (urinary tract infection) (12) PNA (pneumonia) (13) Decubitus ulcer of left hip, stage 4 (14) Decubitus ulcer of right hip, stage 3 (15) Proteinuria (16) Functional quadriplegia Review of Systems ROS Narrative cannot obtain given medical condition Physical Exam General Appearance: no apparent distress Lines, tubes and drains: other HEENT: mucous membranes moist Neck: normal inspection Respiratory/Chest: no respiratory distress, no accessory muscle use, decreased breath sounds Cardiovascular/Chest: normal rate Abdomen: soft, no organomegaly, no mass, feeding tube Extremities: other Skin Exam: other Neurologic: unresponsiveness Last 24 Hour Vital Signs Date Time Temp Pulse Resp B/P (MAP) Pulse Ox O2 Delivery O2 Flow Rate FiO2 07/11/18 16:29 97.7 93 20 113/68 (83) 99 07/11/18 16:00 92 07/11/18 12:53 100 20 100 Nasal Cannula 2.0 28 07/11/18 12:41 95 20 98 Nasal Cannula 2.0 28 07/11/18 12:00 97.1 97 22 105/59 (74) 99 07/11/18 12:00 95 07/11/18 09:00 Nasal Cannula 2.0 07/11/18 08:29 95 109/60 07/11/18 08:12 96 22 100 Nasal Cannula 2.0 28 07/11/18 08:01 99 Nasal Cannula 2.0 28 07/11/18 08:01 Nasal Cannula 2.0 28 07/11/18 08:01 92 22 99 Nasal Cannula 2.0 28 07/11/18 08:00 97 07/11/18 08:00 97.6 95 20 109/60 (76) 99 07/11/18 04:00 98.3 92 18 110/60 (77) 98 07/11/18 04:00 88 07/11/18 02:08 93 20 99 Nasal Cannula 2.0 28 07/11/18 01:56 95 24 98 Nasal Cannula 2.0 99 07/11/18 00:00 85 07/11/18 00:00 98.4 97 19 113/65 (81) 97 07/10/18 21:00 Nasal Cannula 2.0 07/10/18 20:09 90 20 99 Nasal Cannula 2.0 28 07/10/18 20:08 Nasal Cannula 2.0 28 07/10/18 20:08 99 Nasal Cannula 2.0 28 07/10/18 20:00 98.2 93 18 101/57 (72) 100 07/10/18 20:00 90 07/10/18 19:59 92 20 Nasal Cannula 2.0 07/10/18 19:58 92 24 99 Nasal Cannula 2.0 99 Intake and Output 07/10/18 07/11/18 18:59 06:59 Output Total 800 ml Balance -800 ml Output Urine Total 800 ml # Voids 1 # Bowel Movements 2 1 Laboratory Tests Test 07/11/18 05:50 White Blood Count 9.4 K/UL (4.8-10.8) Red Blood Count 3.43 M/UL (4.70-6.10) L Hemoglobin 9.0 G/DL (14.2-18.0) L Hematocrit 29.4 % (42.0-52.0) L Mean Corpuscular Volume 86 FL (80-99) Mean Corpuscular Hemoglobin 26.3 PG (27.0-31.0) L Mean Corpuscular Hemoglobin Concent 30.7 G/DL (32.0-36.0) L Red Cell Distribution Width 16.5 % (11.6-14.8) H Platelet Count 570 K/UL (150-450) H Mean Platelet Volume 5.1 FL (6.5-10.1) L Neutrophils (%) (Auto) 63.5 % (45.0-75.0) Lymphocytes (%) (Auto) 19.8 % (20.0-45.0) L Monocytes (%) (Auto) 4.4 % (1.0-10.0) Eosinophils (%) (Auto) 11.2 % (0.0-3.0) H Basophils (%) (Auto) 1.0 % (0.0-2.0) Sodium Level 141 MMOL/L (136-145) Potassium Level 4.1 MMOL/L (3.5-5.1) Chloride Level 102 MMOL/L (98-107) Carbon Dioxide Level 34 MMOL/L (21-32) H Anion Gap 5 mmol/L (5-15) Blood Urea Nitrogen 30 mg/dL (7-18) H Creatinine 0.6 MG/DL (0.55-1.30) Estimat Glomerular Filtration Rate > 60 mL/min (>60) Glucose Level 151 MG/DL (74-106) H Uric Acid 2.1 MG/DL (2.6-7.2) L Calcium Level 9.3 MG/DL (8.5-10.1) Phosphorus Level 3.7 MG/DL (2.5-4.9) Magnesium Level 2.1 MG/DL (1.8-2.4) Total Bilirubin 0.2 MG/DL (0.2-1.0) Aspartate Amino Transf (AST/SGOT) 15 U/L (15-37) Alanine Aminotransferase (ALT/SGPT) 11 U/L (12-78) L Alkaline Phosphatase 156 U/L (46-116) H Pro-B-Type Natriuretic Peptide 200 pg/mL (0-125) H Total Protein 10.3 G/DL (6.4-8.2) H Albumin 2.3 G/DL (3.4-5.0) L Globulin 8.0 g/dL Albumin/Globulin Ratio 0.3 (1.0-2.7) L Height (Feet): 5 Height (Inches): 3.00 Weight (Pounds): 112 Medications Current Medications Medications (Trade) Dose Ordered Sig/Briseida Route PRN Reason Start Time Stop Time Status Last Admin Dose Admin Acetaminophen (Tylenol) 650 mg Q4H PRN GT wound care 07/10/18 02:00 08/09/18 01:59 07/10/18 17:14 Albuterol/ Ipratropium (Albuterol/ Ipratropium) 3 ml Q6HRT HHN 07/10/18 19:00 07/15/18 18:59 07/11/18 12:41 Amlodipine Besylate (Norvasc) 10 mg DAILY GT 07/11/18 09:00 08/09/18 08:59 07/11/18 08:29 Ascorbic Acid (Vitamin C) 500 mg BID GT 07/10/18 09:00 08/09/18 08:59 07/11/18 17:12 Aspirin (ASA) 81 mg DAILY GT 07/10/18 10:29 08/09/18 10:28 07/11/18 08:28 Dextrose (Dextrose 50%) 25 ml Q30M PRN IV Hypoglycemia 07/10/18 01:30 08/09/18 01:29 Dextrose (Dextrose 50%) 50 ml Q30M PRN IV Hypoglycemia 07/10/18 01:30 08/09/18 01:29 Donepezil HCl (Aricept) 10 mg BEDTIME GT 07/10/18 21:00 08/09/18 20:59 07/10/18 21:47 Finasteride (Proscar) 5 mg DAILY ORAL 07/10/18 09:00 08/09/18 08:59 07/11/18 08:27 Heparin Sodium (Porcine) (Heparin 5000 units/ml) 5,000 units EVERY 12 HOURS SUBQ 07/10/18 21:00 08/09/18 20:59 07/11/18 08:31 Insulin Aspart (NovoLOG) BEFORE MEALS AND HS SUBQ 07/10/18 06:30 08/09/18 06:29 07/11/18 17:16 Insulin Detemir (Levemir) 6 units BID SUBQ 07/10/18 09:00 08/09/18 08:59 07/11/18 08:41 Ipratropium [place] (Atrovent) 500 mcg Q4H PRN HHN Shortness of Breath 07/10/18 02:00 07/15/18 01:59 Loratadine (Claritin 10mg) 10 mg DAILY ORAL 07/10/18 09:00 08/09/18 08:59 07/11/18 08:27 Metformin HCl (Glucophage) 850 mg DAILY GT 07/10/18 09:00 08/09/18 08:59 07/11/18 08:28 Minocycline HCl (Minocin) 100 mg Q12HR@0700,1900 ORAL 07/10/18 07:00 07/17/18 06:59 07/11/18 06:12 Multivitamins Therapeutic (Therapeutic Multivitamin) 1 ea DAILY ORAL 07/10/18 09:00 08/09/18 08:59 07/11/18 08:29 Piperacillin Sod/ Tazobactam Sod 3.375 gm/Dextrose 110 ml @ 27.5 mls/hr EVERY 8 HOURS IVPB 07/10/18 14:00 07/15/18 13:59 07/11/18 13:23 Sitagliptin Phosphate (Januvia) 100 mg DAILY ORAL 07/10/18 09:00 08/09/18 08:59 07/11/18 08:28 Zinc Sulfate (Zinc Sulfate) 220 mg DAILY ORAL 07/10/18 09:00 08/09/18 08:59 07/11/18 08:27 Assessment/Plan Problem List: (1) Sacral decubitus ulcer, stage IV Assessment & Plan: Pt presents with multiple full thickness pressure injuries R trochanteric pressure injury (L)3cm x (W)2.5cm,80% mixed soft necrosis and slough,otherwise granular with macerated borders.Periwound dark and indurated. Full thickness sacral pressure injury (L)9.4cm x (W)11.5cm x (D)2.5cm .Wound bed with good granulation tissue. Bone is visible .Small amt non-odorous brown exudate noted. Full thickness pressure injury to L trochanter (L)5.5cmx(W)4cm x0.8cm, undermining 11-6cm by 1.4cm @5o'clock. Both heels boggy with dark non-blanching erythema. All wounds present upon admission and will be cared for during admission Tx.Plan: Cleanse Sacral and L trochanteric wounds with Saline .Loosely pack with Hydrogel impregnated gauze. Cavilon to Borders and periwound. Cleanse R trochanteric wound with Saline.Apply Therahoney gel .Cavilon to borders .Cover with Optifoam drsg Daily and prn. Apply Cavilon to both heels.Cover with Optifoam drsg.Change every 7days and prn.Off-load heels with pillow. Reposition at minimum every 2hours or as tolerated. Air Fluidized mattress. ICD Codes: L89.154 - Pressure ulcer of sacral region, stage 4 SNOMED: [id number], [id number] Shamar Clark Jul 11, 2018 18:21
[2018-07-11 20:00] VITALS: BP 111/68
[2018-07-11] MEDS: Donepezil 10mg tab GT SCH (20:12)
--- NOTE | 2018-07-11 22:45 | Progress Note ---
SUBJECTIVE: admitted for sepsis and pneumonia. PHYSICAL EXAMINATION: VITAL SIGNS: . GENERAL: The patient is well developed and appropriate for usual state of health, in no apparent distress. HEENT: Atraumatic. Conjunctivae are pink. Pupils equal, round, and reactive to light. Extraocular movements intact. There is no scleral icterus. Tympanic membranes clear bilaterally. Oral pharynx is clear. NECK: C-spine is soft and supple. There is no meningismus. There is no cervical lymphadenopathy. No JVD. No bruits. No goiter. CHEST: Clear to auscultation bilaterally. There are no rales, wheezes, or rhonchi. HEART: Regular rate and rhythm, no murmurs, clicks, rubs, or gallops. No S3 or S4. ABDOMEN: Soft, nontender, and nondistended. Good bowel sounds. No rebound or guarding. No gross peritonitis. No gross organomegaly or masses. BACK: No midline or flank tenderness. EXTREMITIES: Equal pulses bilaterally. There is no peripheral clubbing, cyanosis or edema. No focal swelling or erythema. Full range of motion. Grossly neurovascularly intact. NEUROLOGIC: Alert and oriented. Cranial nerves II through XII intact. The patient moves all four extremities with 5/5 strength. Sensation grossly intact. Normal gait. Babinski negative. DTR 2+ throughout. SKIN: There is no apparent rash or petechiae. The skin is warm and dry. HEME/LYMPHATIC: There is no evidence of excessive bruising or lymphedema. No gross cervical, axillary, or inguinal lymphadenopathy. PSYCHIATRIC: The patient does not appear anxious or depressed. Normal orientation and judgement. ASSESSMENT AND PLAN: Sacral decubitus ulcer, sepsis, pneumonia, UTI, . The patient is also DNR. improving. Antibiotics per Infectious Disease. The patient is nonverbal. He has organic brain syndrome. Jamia Wu M.D. DR: WERNER JOB#: [id number] CC:
[2018-07-12] VITALS: BP 107/57
[2018-07-12 04:00] VITALS: BP 102/56
[2018-07-12] MEDS: NovoLOG Insulin Flexpen SUBQ SCH ×4 (05:55→21:15)
[2018-07-12] MEDS: Piperacillin/Tazobactam 3.375 GM in D5W 110 ML IVPB SCH ×3 (05:56→21:54)
[2018-07-12] MEDS: Minocycline HCl 50mg cap ORAL SCH ×2 (05:56→18:06)
[2018-07-12] MEDS: Albuterol/Ipratropium 3ml neb HHN SCH ×3 (07:36→20:13)
[2018-07-12 08:00] VITALS: BP 112/59
[2018-07-12] MEDS: Aspirin Baby 81mg GT SCH (08:19)
[2018-07-12] MEDS: Ascorbic Acid 500mg tab GT SCH ×2 (08:19→17:09)
[2018-07-12] MEDS: Zinc Sulfate 220mg cap ORAL SCH (08:19)
[2018-07-12] MEDS: Multivitamin w/Minerals tab ORAL SCH (08:19)
[2018-07-12] MEDS: Heparin 5000 units/ml inj SUBQ SCH ×2 (08:21→21:14)
[2018-07-12] MEDS: Levemir Flexpen SUBQ SCH ×2 (08:36→17:09)
--- NOTE | 2018-07-12 09:17 | General Progress Note ---
Assessment/Plan Status: stable Assessment/Plan #. Anemia due to underlying chronic disease. ESR was 115 on last admission. Closely monitor for improvement. The patient has ongoing anemia, likely related to underlying decubitus ulceration. In addition to being chronically ill, bedbound, and hemoglobin, ferritin is >1000 --> transfuse if hgb <7 --> presurgery has been given 1 dose of epogen for more rapid recovery --> no hemolysis has been noted --> trend cbc daily --> new panel ordered. New ferritin at 345 --> discontinued ferrous sulfate #. Thrombocytosis is likely related to underlying anemia, infection, fevers --> Plt remains elevated --> trend platelet count --> continue on asa low dose #. Hyperproteinemia. Given albumin dissociation --> spep and upep have been ordered to evaluate for spike in m-spike, on last admission no mspike was noted --> appreciate pulm recs --> 06/19 albumin bolus #. Hospital-acquired pneumonia on prior admission. --> repeat cxr shows bilateral interstitial and airspace disease #. Azotemia. Given fluids as needed. BUN of 33. --> s/p ivf #. Stage IV ulcerations on the left and right side. Stage IV ulcerations --> Dr. Clark aware, following --> Wound cx is positive #. Dysphagia, status post PEG tube. #. Incontinence with a Beltran catheter in place. --> Beltran catheter is in place. --> uro recs as needed on last admission #. DPOA wants comfort care/conservative care GREATLY APPRECIATE CONSULTATION Subjective Date patient seen: Jul 12, 2018 Hematologic/Lymphatic: Reports: anemia Allergies: Coded Allergies: CEFTRIAXONE (Verified Allergy, Unknown, 04/04/18) All Systems: reviewed and negative except above Subjective No acute events. H/H stable. VS stable. O2 NC. Objective Last 24 Hour Vital Signs Date Time Temp Pulse Resp B/P (MAP) Pulse Ox O2 Delivery O2 Flow Rate FiO2 07/12/18 08:00 98.4 104 20 112/59 (76) 99 07/12/18 07:45 86 20 99 Nasal Cannula 2.0 28 07/12/18 07:36 86 20 98 Nasal Cannula 2.0 28 07/12/18 07:36 Nasal Cannula 2.0 28 07/12/18 07:36 98 Nasal Cannula 2.0 28 07/12/18 04:00 108 07/12/18 04:00 98.3 99 20 102/56 (71) 98 07/12/18 00:00 98.4 98 20 107/57 (74) 96 07/12/18 00:00 105 07/11/18 23:53 92 20 99 Nasal Cannula 2.0 28 07/11/18 23:43 89 20 98 Nasal Cannula 2.0 28 07/11/18 21:00 Nasal Cannula 2.0 07/11/18 20:00 91 07/11/18 20:00 98.0 96 20 111/68 (82) 100 07/11/18 19:51 88 22 99 Nasal Cannula 2.0 28 07/11/18 19:41 Nasal Cannula 2.0 28 07/11/18 19:41 98 Nasal Cannula 2.0 28 07/11/18 19:41 86 18 98 Nasal Cannula 2.0 28 07/11/18 16:29 97.7 93 20 113/68 (83) 99 07/11/18 16:00 92 07/11/18 12:53 100 20 100 Nasal Cannula 2.0 28 07/11/18 12:41 95 20 98 Nasal Cannula 2.0 28 07/11/18 12:00 97.1 97 22 105/59 (74) 99 07/11/18 12:00 95 Intake and Output 07/11/18 07/12/18 19:00 07:00 Intake Total 380 ml Output Total 925 ml 550 ml Balance -545 ml -550 ml Intake Free Water 80 ml Tube Feeding 300 ml Output Urine Total 925 ml 550 ml # Bowel Movements 1 3 Height (Feet): 5 Height (Inches): 3.00 Weight (Pounds): 112 Objective PHYSICAL EXAMINATION: VITAL SIGNS: Reviewed. GENERAL: Not in acute distress. The patient is contracted, lying in bed, bedbound, ill and lethargic. PULMONARY: Decreased breath sounds, 1 to 2+ crackles in bilateral lungs. Nasal cannula in place. CARDIOVASCULAR: Regular rate and crackles noted overlying the heart sounds. ABDOMEN: Soft, nontender, nondistended. Positive for G-tube. EXTREMITIES: No cyanosis or swelling noted Nikolai Richards MD Jul 12, 2018 09:17
--- NOTE | 2018-07-12 10:40 | Pulmonology Progress Note ---
Assessment/Plan Assessment/Plan ASSESSMENT: The patient is a 68-year-old male prison resident with acute on chronic hypoxemic hypercapnic respiratory failure, bilateral infiltrates, likely recurrent healthcare-associated pneumonia, dementia, CVA, dysphagia, hypertension, sacral ulcer and CAD. PROBLEM LIST: 1. Multifocal pneumonia, healthcare-associated pneumonia. 2. correction resident. 3. Dementia/CVA. 4. Dysphagia. 5. Hypertension, CAD. 6. Protein albumin discordance. 7. Decubiti TREATMENT PLAN: 1. Optimize pulmonary hygiene/mobilize as tolerated. 2. Titrate down FiO2 to keep saturations greater than 90%. 3. P.r.n. BiPAP. 4. Continue antibiotics (Zosyn & Darrel) per ID, follow up cultures. 5. Rdlub-pqi-nuzko and p.r.n. bronchodilators. 6. Aspiration precautions, cautious tube feeds. 7. Monitor volumes and renal function. 8. Heparin subcutaneous for DVT prophylaxis. 9. DNR/DNI, continue discuss goals of care. Subjective Allergies: Coded Allergies: CEFTRIAXONE (Verified Allergy, Unknown, 04/04/18) Subjective AFVSS, O2 needs stable, monse TFs, no distress, no cough, no FC Objective Last 24 Hour Vital Signs Date Time Temp Pulse Resp B/P (MAP) Pulse Ox O2 Delivery O2 Flow Rate FiO2 07/12/18 09:00 Nasal Cannula 2.0 07/12/18 09:00 104 112/59 07/12/18 08:00 98.4 104 20 112/59 (76) 99 07/12/18 08:00 104 07/12/18 07:45 86 20 99 Nasal Cannula 2.0 28 07/12/18 07:36 86 20 98 Nasal Cannula 2.0 28 07/12/18 07:36 Nasal Cannula 2.0 28 07/12/18 07:36 98 Nasal Cannula 2.0 28 07/12/18 04:00 108 07/12/18 04:00 98.3 99 20 102/56 (71) 98 07/12/18 00:00 98.4 98 20 107/57 (74) 96 07/12/18 00:00 105 07/11/18 23:53 92 20 99 Nasal Cannula 2.0 28 07/11/18 23:43 89 20 98 Nasal Cannula 2.0 28 07/11/18 21:00 Nasal Cannula 2.0 07/11/18 20:00 91 07/11/18 20:00 98.0 96 20 111/68 (82) 100 07/11/18 19:51 88 22 99 Nasal Cannula 2.0 28 07/11/18 19:41 Nasal Cannula 2.0 28 07/11/18 19:41 98 Nasal Cannula 2.0 28 07/11/18 19:41 86 18 98 Nasal Cannula 2.0 28 07/11/18 16:29 97.7 93 20 113/68 (83) 99 07/11/18 16:00 92 07/11/18 12:53 100 20 100 Nasal Cannula 2.0 28 07/11/18 12:41 95 20 98 Nasal Cannula 2.0 28 07/11/18 12:00 97.1 97 22 105/59 (74) 99 07/11/18 12:00 95 Intake and Output 07/11/18 07/12/18 19:00 07:00 Intake Total 380 ml Output Total 925 ml 550 ml Balance -545 ml -550 ml Intake Free Water 80 ml Tube Feeding 300 ml Output Urine Total 925 ml 550 ml # Bowel Movements 1 3 General Appearance: cachetic HEENT: normocephalic, atraumatic, anicteric, mucous membranes moist Respiratory/Chest: chest wall non-tender, rhonchi Cardiovascular: normal peripheral pulses, normal rate, regular rhythm Abdomen: normal bowel sounds, soft, non tender, no organomegaly, non distended , no mass, other - GT Extremities: no cyanosis, no clubbing, no edema Microbiology Date/Time Source Procedure Growth Status 07/09/18 20:30 Blood Blood Culture - Preliminary NO GROWTH AFTER 48 HOURS Resulted 07/09/18 20:20 Blood Blood Culture - Preliminary NO GROWTH AFTER 48 HOURS Resulted 07/09/18 23:00 Nasal Nares MRSA Culture - Final NO METHICILLIN RESISTANT STAPH AUREUS... Complete 07/10/18 00:30 Sacral Wound Gram Stain - Final Resulted 07/10/18 00:30 Wound Culture - Preliminary Escherichia Coli - Esbl Proteus Mirabilis Resulted 07/09/18 14:28 Rectum VRE Culture - Final Enterococcus Faecalis - Vre Complete Current Medications Medications (Trade) Dose Ordered Sig/Briseida Route PRN Reason Start Time Stop Time Status Last Admin Dose Admin Acetaminophen (Tylenol) 650 mg Q4H PRN GT wound care 07/10/18 02:00 08/09/18 01:59 07/10/18 17:14 Albuterol/ Ipratropium (Albuterol/ Ipratropium) 3 ml Q6HRT HHN 07/10/18 19:00 07/15/18 18:59 07/12/18 07:36 Amlodipine Besylate (Norvasc) 10 mg DAILY GT 07/11/18 09:00 08/09/18 08:59 07/11/18 08:29 Ascorbic Acid (Vitamin C) 500 mg BID GT 07/10/18 09:00 08/09/18 08:59 07/12/18 08:19 Aspirin (ASA) 81 mg DAILY GT 07/10/18 10:29 08/09/18 10:28 07/12/18 08:19 Dextrose (Dextrose 50%) 25 ml Q30M PRN IV Hypoglycemia 07/10/18 01:30 08/09/18 01:29 Dextrose (Dextrose 50%) 50 ml Q30M PRN IV Hypoglycemia 07/10/18 01:30 08/09/18 01:29 Donepezil HCl (Aricept) 10 mg BEDTIME GT 07/10/18 21:00 08/09/18 20:59 07/11/18 20:12 Finasteride (Proscar) 5 mg DAILY ORAL 07/10/18 09:00 08/09/18 08:59 07/12/18 08:19 Heparin Sodium (Porcine) (Heparin 5000 units/ml) 5,000 units EVERY 12 HOURS SUBQ 07/10/18 21:00 08/09/18 20:59 07/12/18 08:21 Insulin Aspart (NovoLOG) BEFORE MEALS AND HS SUBQ 07/10/18 06:30 08/09/18 06:29 07/12/18 05:55 Insulin Detemir (Levemir) 6 units BID SUBQ 07/10/18 09:00 08/09/18 08:59 07/12/18 08:36 Ipratropium [place] (Atrovent) 500 mcg Q4H PRN HHN Shortness of Breath 07/10/18 02:00 07/15/18 01:59 Loratadine (Claritin 10mg) 10 mg DAILY ORAL 07/10/18 09:00 08/09/18 08:59 07/12/18 08:19 Metformin HCl (Glucophage) 850 mg DAILY GT 07/10/18 09:00 08/09/18 08:59 07/12/18 08:19 Minocycline HCl (Minocin) 100 mg Q12HR@0700,1900 ORAL 07/10/18 07:00 07/17/18 06:59 07/12/18 05:56 Multivitamins Therapeutic (Therapeutic Multivitamin) 1 ea DAILY ORAL 07/10/18 09:00 08/09/18 08:59 07/12/18 08:19 Piperacillin Sod/ Tazobactam Sod 3.375 gm/Dextrose 110 ml @ 27.5 mls/hr EVERY 8 HOURS IVPB 07/10/18 14:00 07/15/18 13:59 07/12/18 05:56 Sitagliptin Phosphate (Januvia) 100 mg DAILY ORAL 07/10/18 09:00 08/09/18 08:59 07/12/18 08:19 Zinc Sulfate (Zinc Sulfate) 220 mg DAILY ORAL 07/10/18 09:00 08/09/18 08:59 07/12/18 08:19 Yrn Buckley MD Jul 12, 2018 10:40
[2018-07-12 12:00] VITALS: BP 105/59
--- NOTE | 2018-07-12 13:32 | Nephrology Progress Note ---
Assessment/Plan Problem List: (1) UTI (urinary tract infection) (2) Cachexia (3) Proteinuria (4) Functional quadriplegia Assessment Presents with fever 1) Cachexia / Malnutrition (2) Proteinuria (3) UTI (urinary tract infection) (4) Diabetes mellitus out of control (5) Dementia Plan Pulmonary toilet Antibiotics Monitor renal parameters hold bp meds- parameters albumin bolus as needed Subjective ROS Limited/Unobtainable: No Constitutional: Reports: malaise, weakness Objective Objective Last 24 Hour Vital Signs Date Time Temp Pulse Resp B/P (MAP) Pulse Ox O2 Delivery O2 Flow Rate FiO2 07/12/18 12:00 99.0 98 20 105/59 (74) 98 07/12/18 09:00 Nasal Cannula 2.0 07/12/18 09:00 104 112/59 07/12/18 08:00 98.4 104 20 112/59 (76) 99 07/12/18 08:00 104 07/12/18 07:45 86 20 99 Nasal Cannula 2.0 28 07/12/18 07:36 86 20 98 Nasal Cannula 2.0 28 07/12/18 07:36 Nasal Cannula 2.0 28 07/12/18 07:36 98 Nasal Cannula 2.0 28 07/12/18 04:00 108 07/12/18 04:00 98.3 99 20 102/56 (71) 98 07/12/18 00:00 98.4 98 20 107/57 (74) 96 07/12/18 00:00 105 07/11/18 23:53 92 20 99 Nasal Cannula 2.0 28 07/11/18 23:43 89 20 98 Nasal Cannula 2.0 28 07/11/18 21:00 Nasal Cannula 2.0 07/11/18 20:00 91 07/11/18 20:00 98.0 96 20 111/68 (82) 100 07/11/18 19:51 88 22 99 Nasal Cannula 2.0 28 07/11/18 19:41 Nasal Cannula 2.0 28 07/11/18 19:41 98 Nasal Cannula 2.0 28 07/11/18 19:41 86 18 98 Nasal Cannula 2.0 28 07/11/18 16:29 97.7 93 20 113/68 (83) 99 07/11/18 16:00 92 Intake and Output 07/11/18 07/12/18 19:00 07:00 Intake Total 380 ml Output Total 925 ml 550 ml Balance -545 ml -550 ml Intake Free Water 80 ml Tube Feeding 300 ml Output Urine Total 925 ml 550 ml # Bowel Movements 1 3 Height (Feet): 5 Height (Inches): 3.00 Weight (Pounds): 112 General Appearance: no apparent distress Cardiovascular: tachycardia Respiratory/Chest: decreased breath sounds Abdomen: distended Chava Dwyer MD Jul 12, 2018 13:32
[2018-07-12 16:00] VITALS: BP 104/59
[2018-07-12 20:00] VITALS: BP 113/65
[2018-07-12] MEDS: Donepezil 10mg tab GT SCH (21:07)
[2018-07-13] VITALS: BP 118/63
[2018-07-13] MEDS: Albuterol/Ipratropium 3ml neb HHN SCH ×4 (01:26→20:00)
--- NOTE | 2018-07-13 01:30 | Progress Note ---
DATE: 07/12/2018 SUBJECTIVE: The patient is now nonverbal. The patient has sepsis and pneumonia, has decubitus as well as urinary tract infection as well as multiple decubitus ____. Infectious Disease antibiotics. The patient is afebrile today. The patient recently had a wound VAC . ASSESSMENT: 1. Sepsis. 2. Urinary tract infection. 3. Pneumonia. 4. Decubitus is improving. PLAN: Antibiotics per Infectious Disease. I reviewed the chart and labs and medications. Jamia Wu M.D. DR: DALILA JOB#: [id number] CC:
[2018-07-13 04:00] VITALS: BP 107/66
[2018-07-13] MEDS: Minocycline HCl 50mg cap ORAL SCH ×2 (06:05→19:22)
[2018-07-13] MEDS: Piperacillin/Tazobactam 3.375 GM in D5W 110 ML IVPB SCH ×3 (06:05→21:38)
[2018-07-13] MEDS: NovoLOG Insulin Flexpen SUBQ SCH ×4 (06:05→20:51)
[2018-07-13 08:00] VITALS: BP 102/64
[2018-07-13] MEDS: Zinc Sulfate 220mg cap ORAL SCH (08:07)
[2018-07-13] MEDS: Ascorbic Acid 500mg tab GT SCH ×2 (08:07→17:35)
[2018-07-13] MEDS: Multivitamin w/Minerals tab ORAL SCH (08:07)
[2018-07-13] MEDS: Aspirin Baby 81mg GT SCH (08:08)
[2018-07-13] MEDS: Heparin 5000 units/ml inj SUBQ SCH ×2 (08:12→20:51)
[2018-07-13] MEDS: Levemir Flexpen SUBQ SCH ×2 (08:12→17:38)
--- NOTE | 2018-07-13 10:49 | Pulmonology Progress Note ---
Assessment/Plan Assessment/Plan ASSESSMENT: The patient is a 68-year-old male prison resident with acute on chronic hypoxemic hypercapnic respiratory failure, bilateral infiltrates, likely recurrent healthcare-associated pneumonia, dementia, CVA, dysphagia, hypertension, sacral ulcer and CAD. PROBLEM LIST: 1. Multifocal pneumonia, healthcare-associated pneumonia. 2. intermediate resident. 3. Dementia/CVA. 4. Dysphagia. 5. Hypertension, CAD. 6. Protein albumin discordance. 7. Decubiti TREATMENT PLAN: 1. Optimize pulmonary hygiene/mobilize as tolerated. 2. Titrate down FiO2 to keep saturations greater than 90%. 3. P.r.n. BiPAP. 4. Continue antibiotics (Zosyn & Darrel) per ID, follow up cultures. 5. [id number] and p.r.n. bronchodilators. 6. Aspiration precautions, cautious tube feeds. 7. Monitor volumes and renal function. 8. Heparin subcutaneous for DVT prophylaxis. 9. DNR/DNI, continue discuss goals of care. Subjective Allergies: Coded Allergies: CEFTRIAXONE (Verified Allergy, Unknown, 04/04/18) Subjective AFVSS, O2 needs stable, monse TFs, no distress, no cough, no FC Objective Last 24 Hour Vital Signs Date Time Temp Pulse Resp B/P (MAP) Pulse Ox O2 Delivery O2 Flow Rate FiO2 07/13/18 09:00 Nasal Cannula 2.0 07/13/18 09:00 91 07/13/18 08:13 94 102/64 07/13/18 08:00 98.5 94 20 102/64 (77) 96 07/13/18 07:38 97 22 99 Nasal Cannula 2.0 28 07/13/18 07:37 96 Nasal Cannula 2.0 28 07/13/18 07:37 Nasal Cannula 2.0 28 07/13/18 07:32 91 18 96 Nasal Cannula 2.0 28 07/13/18 04:00 98.1 93 22 107/66 (80) 100 07/13/18 04:00 86 07/13/18 01:36 96 20 100 Nasal Cannula 2.0 28 07/13/18 01:26 80 18 98 Nasal Cannula 2.0 28 07/13/18 00:00 98.2 94 22 118/63 (81) 99 07/13/18 00:00 88 07/12/18 21:00 Nasal Cannula 2.0 07/12/18 20:24 95 20 100 Nasal Cannula 2.0 28 07/12/18 20:13 Nasal Cannula 2.0 28 07/12/18 20:13 99 Nasal Cannula 2.0 28 07/12/18 20:13 95 20 99 Nasal Cannula 2.0 28 07/12/18 20:00 98.6 93 22 113/65 (81) 100 07/12/18 20:00 95 07/12/18 16:00 96 07/12/18 16:00 99.0 97 20 104/59 (74) 100 07/12/18 13:35 90 20 99 Nasal Cannula 2.0 28 07/12/18 13:29 92 20 98 Nasal Cannula 2.0 28 07/12/18 12:00 99.0 98 20 105/59 (74) 98 07/12/18 12:00 99 Intake and Output 07/12/18 07/13/18 19:00 07:00 Output Total 650 ml 500 ml Balance -650 ml -500 ml Output Urine Total 650 ml 500 ml # Bowel Movements 2 2 General Appearance: no acute distress, cachetic HEENT: normocephalic, atraumatic, anicteric, mucous membranes moist Respiratory/Chest: chest wall non-tender, lungs clear, normal breath sounds, no respiratory distress, no accessory muscle use Cardiovascular: normal peripheral pulses, normal rate, regular rhythm Abdomen: normal bowel sounds, soft, non tender, no organomegaly, non distended , no mass, other - GT CDI Extremities: no cyanosis, no clubbing, no edema Current Medications Medications (Trade) Dose Ordered Sig/Briseida Route PRN Reason Start Time Stop Time Status Last Admin Dose Admin Acetaminophen (Tylenol) 650 mg Q4H PRN GT wound care 07/10/18 02:00 08/09/18 01:59 07/10/18 17:14 Albuterol/ Ipratropium (Albuterol/ Ipratropium) 3 ml Q6HRT HHN 07/10/18 19:00 07/15/18 18:59 07/13/18 07:25 Amlodipine Besylate (Norvasc) 10 mg DAILY GT 07/11/18 09:00 08/09/18 08:59 07/11/18 08:29 Ascorbic Acid (Vitamin C) 500 mg BID GT 07/10/18 09:00 08/09/18 08:59 07/13/18 08:07 Aspirin (ASA) 81 mg DAILY GT 07/10/18 10:29 08/09/18 10:28 07/13/18 08:08 Dextrose (Dextrose 50%) 25 ml Q30M PRN IV Hypoglycemia 07/10/18 01:30 08/09/18 01:29 Dextrose (Dextrose 50%) 50 ml Q30M PRN IV Hypoglycemia 07/10/18 01:30 08/09/18 01:29 Donepezil HCl (Aricept) 10 mg BEDTIME GT 07/10/18 21:00 08/09/18 20:59 07/12/18 21:07 Finasteride (Proscar) 5 mg DAILY ORAL 07/10/18 09:00 08/09/18 08:59 07/13/18 08:07 Heparin Sodium (Porcine) (Heparin 5000 units/ml) 5,000 units EVERY 12 HOURS SUBQ 07/10/18 21:00 08/09/18 20:59 07/13/18 08:12 Insulin Aspart (NovoLOG) BEFORE MEALS AND HS SUBQ 07/10/18 06:30 08/09/18 06:29 07/13/18 06:05 Insulin Detemir (Levemir) 6 units BID SUBQ 07/10/18 09:00 08/09/18 08:59 07/13/18 08:12 Ipratropium [place] (Atrovent) 500 mcg Q4H PRN HHN Shortness of Breath 07/10/18 02:00 07/15/18 01:59 Loratadine (Claritin 10mg) 10 mg DAILY ORAL 07/10/18 09:00 08/09/18 08:59 07/13/18 08:07 Metformin HCl (Glucophage) 850 mg DAILY GT 07/10/18 09:00 08/09/18 08:59 07/13/18 08:07 Minocycline HCl (Minocin) 100 mg Q12HR@0700,1900 ORAL 07/10/18 07:00 07/17/18 06:59 07/13/18 06:05 Multivitamins Therapeutic (Therapeutic Multivitamin) 1 ea DAILY ORAL 07/10/18 09:00 08/09/18 08:59 07/13/18 08:07 Piperacillin Sod/ Tazobactam Sod 3.375 gm/Dextrose 110 ml @ 27.5 mls/hr EVERY 8 HOURS IVPB 07/10/18 14:00 07/15/18 13:59 07/13/18 06:05 Sitagliptin Phosphate (Januvia) 100 mg DAILY ORAL 07/10/18 09:00 08/09/18 08:59 07/13/18 08:07 Zinc Sulfate (Zinc Sulfate) 220 mg DAILY ORAL 07/10/18 09:00 08/09/18 08:59 07/13/18 08:07 Yrn Buckley MD Jul 13, 2018 10:49
--- NOTE | 2018-07-13 11:21 | General Progress Note ---
Assessment/Plan Problem List: (1) Cachexia ICD Codes: R64 - Cachexia SNOMED: 938688324 (2) UTI (urinary tract infection) ICD Codes: N39.0 - Urinary tract infection, site not specified SNOMED: 36318997 (3) PNA (pneumonia) ICD Codes: J18.9 - Pneumonia, unspecified organism SNOMED: 664866596 (4) Decubitus ulcer of right hip, stage 3 ICD Codes: L89.213 - Pressure ulcer of right hip, stage 3 SNOMED: 281630782, 144850395 (5) Decubitus ulcer of left hip, stage 4 ICD Codes: L89.224 - Pressure ulcer of left hip, stage 4 SNOMED: 777729145, 718737150 (6) Do not resuscitate ICD Codes: Z66 - Do not resuscitate SNOMED: 593065795 (7) Sepsis ICD Codes: A41.9 - Sepsis, unspecified organism SNOMED: 17965368 (8) Fever ICD Codes: R50.9 - Fever, unspecified SNOMED: 391119946 Status: progressing Assessment/Plan intermittent fever uti sepsis abx per id decub reviewed chart and labs r/o pna abx per id mutiple decubs Subjective ROS Limited/Unobtainable: Yes Allergies: Coded Allergies: CEFTRIAXONE (Verified Allergy, Unknown, 04/04/18) Objective Last 24 Hour Vital Signs Date Time Temp Pulse Resp B/P (MAP) Pulse Ox O2 Delivery O2 Flow Rate FiO2 07/13/18 09:00 Nasal Cannula 2.0 07/13/18 09:00 91 07/13/18 08:13 94 102/64 07/13/18 08:00 98.5 94 20 102/64 (77) 96 07/13/18 07:38 97 22 99 Nasal Cannula 2.0 07/13/18 07:37 96 Nasal Cannula 2.0 07/13/18 07:37 Nasal Cannula 2.0 28 07/13/18 07:32 91 18 96 Nasal Cannula 2.0 07/13/18 04:00 98.1 93 22 107/66 (80) 100 07/13/18 04:00 86 07/13/18 01:36 96 20 100 Nasal Cannula 2.0 28 07/13/18 01:26 80 18 98 Nasal Cannula 2.0 28 07/13/18 00:00 98.2 94 22 118/63 (81) 99 07/13/18 00:00 88 07/12/18 21:00 Nasal Cannula 2.0 07/12/18 20:24 95 20 100 Nasal Cannula 2.0 28 07/12/18 20:13 Nasal Cannula 2.0 28 07/12/18 20:13 99 Nasal Cannula 2.0 28 07/12/18 20:13 95 20 99 Nasal Cannula 2.0 28 07/12/18 20:00 98.6 93 22 113/65 (81) 100 07/12/18 20:00 95 07/12/18 16:00 96 07/12/18 16:00 99.0 97 20 104/59 (74) 100 07/12/18 13:35 90 20 99 Nasal Cannula 2.0 28 07/12/18 13:29 92 20 98 Nasal Cannula 2.0 28 07/12/18 12:00 99.0 98 20 105/59 (74) 98 07/12/18 12:00 99 Intake and Output 07/12/18 07/13/18 19:00 07:00 Output Total 650 ml 500 ml Balance -650 ml -500 ml Output Urine Total 650 ml 500 ml # Bowel Movements 2 2 Height (Feet): 5 Height (Inches): 3.00 Weight (Pounds): 112 General Appearance: lethargic, confused Respiratory/Chest: lungs clear Abdomen: soft Jamia Wu MD Jul 13, 2018 11:21
[2018-07-13 12:00] VITALS: BP 112/62
--- NOTE | 2018-07-13 12:46 | Infectious Diseases Prog Note ---
Assessment/Plan Assessment/Plan A; Sepsis ? Pneumonia Pressure ulcer infection with ESBL organisms Dementia Anemia P: Continue Zosyn & Minocycline Case was D/W surgeon, he believes symptoms are mostly related to pneumonia Case was D/W Dr. Wu Subjective ROS Limited/Unobtainable: Yes Constitutional: Reports: no symptoms Allergies: Coded Allergies: CEFTRIAXONE (Verified Allergy, Unknown, 04/04/18) Objective Vital Signs Last 24 Hour Vital Signs Date Time Temp Pulse Resp B/P (MAP) Pulse Ox O2 Delivery O2 Flow Rate FiO2 07/13/18 12:00 98.4 95 20 112/62 (79) 97 07/13/18 09:00 Nasal Cannula 2.0 07/13/18 09:00 91 07/13/18 08:13 94 102/64 07/13/18 08:00 98.5 94 20 102/64 (77) 96 07/13/18 07:38 97 22 99 Nasal Cannula 2.0 28 07/13/18 07:37 96 Nasal Cannula 2.0 28 07/13/18 07:37 Nasal Cannula 2.0 28 07/13/18 07:32 91 18 96 Nasal Cannula 2.0 28 07/13/18 04:00 98.1 93 22 107/66 (80) 100 07/13/18 04:00 86 07/13/18 01:36 96 20 100 Nasal Cannula 2.0 28 07/13/18 01:26 80 18 98 Nasal Cannula 2.0 28 07/13/18 00:00 98.2 94 22 118/63 (81) 99 07/13/18 00:00 88 07/12/18 21:00 Nasal Cannula 2.0 07/12/18 20:24 95 20 100 Nasal Cannula 2.0 28 07/12/18 20:13 Nasal Cannula 2.0 28 07/12/18 20:13 99 Nasal Cannula 2.0 28 07/12/18 20:13 95 20 99 Nasal Cannula 2.0 28 07/12/18 20:00 98.6 93 22 113/65 (81) 100 07/12/18 20:00 95 07/12/18 16:00 96 07/12/18 16:00 99.0 97 20 104/59 (74) 100 07/12/18 13:35 90 20 99 Nasal Cannula 2.0 28 12/1/18 13:29 92 20 98 Nasal Cannula 2.0 28 Height (Feet): 5 Height (Inches): 3.00 Weight (Pounds): 112 General Appearance: cachetic Respiratory/Chest: rhonchi - bilaterally Cardiovascular: normal rate Abdomen: soft, non tender, other - GT feeding Extremities: no edema Neurologic/Psychiatric: aphasia Current Medications Medications (Trade) Dose Ordered Sig/Briseida Route PRN Reason Start Time Stop Time Status Last Admin Dose Admin Acetaminophen (Tylenol) 650 mg Q4H PRN GT wound care 07/10/18 02:00 08/09/18 01:59 07/10/18 17:14 Albuterol/ Ipratropium (Albuterol/ Ipratropium) 3 ml Q6HRT HHN 07/10/18 19:00 07/15/18 18:59 07/13/18 07:25 Amlodipine Besylate (Norvasc) 10 mg DAILY GT 07/11/18 09:00 08/09/18 08:59 07/11/18 08:29 Ascorbic Acid (Vitamin C) 500 mg BID GT 07/10/18 09:00 08/09/18 08:59 07/13/18 08:07 Aspirin (ASA) 81 mg DAILY GT 07/10/18 10:29 08/09/18 10:28 07/13/18 08:08 Dextrose (Dextrose 50%) 25 ml Q30M PRN IV Hypoglycemia 07/10/18 01:30 08/09/18 01:29 Dextrose (Dextrose 50%) 50 ml Q30M PRN IV Hypoglycemia 07/10/18 01:30 08/09/18 01:29 Donepezil HCl (Aricept) 10 mg BEDTIME GT 07/10/18 21:00 08/09/18 20:59 07/12/18 21:07 Finasteride (Proscar) 5 mg DAILY ORAL 07/10/18 09:00 08/09/18 08:59 07/13/18 08:07 Heparin Sodium (Porcine) (Heparin 5000 units/ml) 5,000 units EVERY 12 HOURS SUBQ 07/10/18 21:00 08/09/18 20:59 07/13/18 08:12 Insulin Aspart (NovoLOG) BEFORE MEALS AND HS SUBQ 07/10/18 06:30 08/09/18 06:29 07/13/18 11:54 Insulin Detemir (Levemir) 6 units BID SUBQ 07/10/18 09:00 08/09/18 08:59 07/13/18 08:12 Ipratropium [place] (Atrovent) 500 mcg Q4H PRN HHN Shortness of Breath 07/10/18 02:00 07/15/18 01:59 Loratadine (Claritin 10mg) 10 mg DAILY ORAL 07/10/18 09:00 08/09/18 08:59 07/13/18 08:07 Metformin HCl (Glucophage) 850 mg DAILY GT 07/10/18 09:00 08/09/18 08:59 07/13/18 08:07 Minocycline HCl (Minocin) 100 mg Q12HR@0700,1900 ORAL 07/10/18 07:00 07/17/18 06:59 07/13/18 06:05 Multivitamins Therapeutic (Therapeutic Multivitamin) 1 ea DAILY ORAL 07/10/18 09:00 08/09/18 08:59 07/13/18 08:07 Piperacillin Sod/ Tazobactam Sod 3.375 gm/Dextrose 110 ml @ 27.5 mls/hr EVERY 8 HOURS IVPB 07/10/18 14:00 07/15/18 13:59 07/13/18 06:05 Sitagliptin Phosphate (Januvia) 100 mg DAILY ORAL 07/10/18 09:00 08/09/18 08:59 07/13/18 08:07 Zinc Sulfate (Zinc Sulfate) 220 mg DAILY ORAL 07/10/18 09:00 08/09/18 08:59 07/13/18 08:07 Herson Palmer MD Jul 13, 2018 12:46
--- NOTE | 2018-07-13 13:11 | General Progress Note ---
Assessment/Plan Status: doing well Assessment/Plan #. Anemia due to underlying chronic disease. ESR was 115 on last admission. Closely monitor for improvement. The patient has ongoing anemia, likely related to underlying decubitus ulceration. In addition to being chronically ill, bedbound, and hemoglobin, ferritin is >1000 --> transfuse if hgb <7 --> presurgery has been given 1 dose of epogen for more rapid recovery --> no hemolysis has been noted --> trend cbc daily --> new panel ordered. New ferritin at 345 --> discontinued ferrous sulfate #. Thrombocytosis is likely related to underlying anemia, infection, fevers --> Plt remains elevated --> trend platelet count --> continue on asa low dose #. Hyperproteinemia. Given albumin dissociation --> spep and upep have been ordered to evaluate for spike in m-spike, on last admission no mspike was noted --> appreciate pulm recs --> 06/19 albumin bolus #. Hospital-acquired pneumonia on prior admission. --> repeat cxr shows bilateral interstitial and airspace disease #. Azotemia. Given fluids as needed. BUN of 33. --> s/p ivf #. Stage IV ulcerations on the left and right side. Stage IV ulcerations --> Dr. Clark aware, following --> Wound cx is positive #. Dysphagia, status post PEG tube. #. Incontinence with a Beltran catheter in place. --> Beltran catheter is in place. --> uro recs as needed on last admission #. DPOA wants comfort care/conservative care GREATLY APPRECIATE CONSULTATION Subjective Date patient seen: Jul 13, 2018 ROS Limited/Unobtainable: Yes Allergies: Coded Allergies: CEFTRIAXONE (Verified Allergy, Unknown, 04/04/18) Subjective Pt in stable condition. No acute events.VS stable. Objective Last 24 Hour Vital Signs Date Time Temp Pulse Resp B/P (MAP) Pulse Ox O2 Delivery O2 Flow Rate FiO2 07/13/18 13:05 93 20 99 Nasal Cannula 2.0 28 07/13/18 13:00 96 20 95 Nasal Cannula 2.0 28 07/13/18 12:00 98.4 95 20 112/62 (79) 97 07/13/18 12:00 72 07/13/18 09:00 Nasal Cannula 2.0 07/13/18 09:00 91 07/13/18 08:13 94 102/64 07/13/18 08:00 98.5 94 20 102/64 (77) 96 07/13/18 07:38 97 22 99 Nasal Cannula 2.0 28 07/13/18 07:37 96 Nasal Cannula 2.0 28 07/13/18 07:37 Nasal Cannula 2.0 28 07/13/18 07:32 91 18 96 Nasal Cannula 2.0 28 07/13/18 04:00 98.1 93 22 107/66 (80) 100 07/13/18 04:00 86 07/13/18 01:36 96 20 100 Nasal Cannula 2.0 28 07/13/18 01:26 80 18 98 Nasal Cannula 2.0 28 07/13/18 00:00 98.2 94 22 118/63 (81) 99 07/13/18 00:00 88 07/12/18 21:00 Nasal Cannula 2.0 07/12/18 20:24 95 20 100 Nasal Cannula 2.0 28 07/12/18 20:13 Nasal Cannula 2.0 28 07/12/18 20:13 99 Nasal Cannula 2.0 28 07/12/18 20:13 95 20 99 Nasal Cannula 2.0 28 07/12/18 20:00 98.6 93 22 113/65 (81) 100 07/12/18 20:00 95 07/12/18 16:00 96 07/12/18 16:00 99.0 97 20 104/59 (74) 100 07/12/18 13:35 90 20 99 Nasal Cannula 2.0 28 07/12/18 13:29 92 20 98 Nasal Cannula 2.0 28 Intake and Output 07/12/18 07/13/18 19:00 07:00 Output Total 650 ml 500 ml Balance -650 ml -500 ml Output Urine Total 650 ml 500 ml # Bowel Movements 2 2 Height (Feet): 5 Height (Inches): 3.00 Weight (Pounds): 112 Objective PHYSICAL EXAMINATION: VITAL SIGNS: Reviewed. GENERAL: Not in acute distress. The patient is contracted, lying in bed, bedbound, ill and lethargic. PULMONARY: Decreased breath sounds, 1 to 2+ crackles in bilateral lungs. Nasal cannula in place. CARDIOVASCULAR: Regular rate and crackles noted overlying the heart sounds. ABDOMEN: Soft, nontender, nondistended. Positive for G-tube. EXTREMITIES: No cyanosis or swelling noted Nikolai Richards MD Jul 13, 2018 13:11
--- NOTE | 2018-07-13 13:11 | General Surgery Progress Note ---
General Surgery-Progress Note Subjective Symptoms: improved Additional Comments fevers resolved. leukocytosis resolved. wounds stable. cultures noted Objective Last 24 Hour Vital Signs Date Time Temp Pulse Resp B/P (MAP) Pulse Ox O2 Delivery O2 Flow Rate FiO2 07/13/18 13:05 93 20 99 Nasal Cannula 2.0 28 07/13/18 13:00 96 20 95 Nasal Cannula 2.0 28 07/13/18 12:00 98.4 95 20 112/62 (79) 97 07/13/18 12:00 72 07/13/18 09:00 Nasal Cannula 2.0 07/13/18 09:00 91 07/13/18 08:13 94 102/64 07/13/18 08:00 98.5 94 20 102/64 (77) 96 07/13/18 07:38 97 22 99 Nasal Cannula 2.0 28 07/13/18 07:37 96 Nasal Cannula 2.0 28 07/13/18 07:37 Nasal Cannula 2.0 28 07/13/18 07:32 91 18 96 Nasal Cannula 2.0 28 07/13/18 04:00 98.1 93 22 107/66 (80) 100 07/13/18 04:00 86 07/13/18 01:36 96 20 100 Nasal Cannula 2.0 28 07/13/18 01:26 80 18 98 Nasal Cannula 2.0 28 07/13/18 00:00 98.2 94 22 118/63 (81) 99 07/13/18 00:00 88 07/12/18 21:00 Nasal Cannula 2.0 07/12/18 20:24 95 20 100 Nasal Cannula 2.0 28 07/12/18 20:13 Nasal Cannula 2.0 28 07/12/18 20:13 99 Nasal Cannula 2.0 28 07/12/18 20:13 95 20 99 Nasal Cannula 2.0 28 07/12/18 20:00 98.6 93 22 113/65 (81) 100 07/12/18 20:00 95 07/12/18 16:00 96 07/12/18 16:00 99.0 97 20 104/59 (74) 100 07/12/18 13:35 90 20 99 Nasal Cannula 2.0 28 07/12/18 13:29 92 20 98 Nasal Cannula 2.0 28 I&O Intake and Output 07/12/18 07/13/18 19:00 07:00 Output Total 650 ml 500 ml Balance -650 ml -500 ml Output Urine Total 650 ml 500 ml # Bowel Movements 2 2 Dressing: saturated Wound: other Drains: other Cardiovascular: RSR Respiratory: clear, decreased breath sounds Abdomen: soft, flat, present bowel sounds, other - feeding tube Extremities: other Plan Problems: (1) Sacral decubitus ulcer, stage IV Assessment & Plan: Pt presents with multiple full thickness pressure injuries R trochanteric pressure injury (L)3cm x (W)2.5cm,80% mixed soft necrosis and slough,otherwise granular with macerated borders.Periwound dark and indurated. Full thickness sacral pressure injury (L)9.4cm x (W)11.5cm x (D)2.5cm .Wound bed with good granulation tissue. Bone is visible .Small amt non-odorous brown exudate noted. Full thickness pressure injury to L trochanter (L)5.5cmx(W)4cm x0.8cm, undermining 11-6cm by 1.4cm @5o'clock. Both heels boggy with dark non-blanching erythema. All wounds present upon admission and will be cared for during admission Tx.Plan: Cleanse Sacral and L trochanteric wounds with Saline .Loosely pack with Hydrogel impregnated gauze. Cavilon to Borders and periwound. Cleanse R trochanteric wound with Saline.Apply Therahoney gel .Cavilon to borders .Cover with Optifoam drsg Daily and prn. Apply Cavilon to both heels.Cover with Optifoam drsg.Change every 7days and prn.Off-load heels with pillow. Reposition at minimum every 2hours or as tolerated. Air Fluidized mattress. bone exposed on sacral area. cultures noted. likely some chronic osteo but no acute active infection noted. Shamar Clark Jul 13, 2018 13:11
--- NOTE | 2018-07-13 14:44 | Nephrology Progress Note ---
Assessment/Plan Problem List: (1) UTI (urinary tract infection) (2) Cachexia (3) Proteinuria (4) Functional quadriplegia Assessment Presents with fever 1) Cachexia / Malnutrition (2) Proteinuria (3) UTI (urinary tract infection) (4) Diabetes mellitus out of control (5) Dementia Plan Pulmonary toilet Antibiotics Monitor renal parameters hold bp meds- parameters albumin bolus as needed Subjective ROS Limited/Unobtainable: No Constitutional: Reports: malaise, weakness Objective Objective Last 24 Hour Vital Signs Date Time Temp Pulse Resp B/P (MAP) Pulse Ox O2 Delivery O2 Flow Rate FiO2 07/13/18 13:05 93 20 99 Nasal Cannula 2.0 28 07/13/18 13:00 96 20 95 Nasal Cannula 2.0 28 07/13/18 12:00 98.4 95 20 112/62 (79) 97 07/13/18 12:00 72 07/13/18 09:00 Nasal Cannula 2.0 07/13/18 09:00 91 07/13/18 08:13 94 102/64 07/13/18 08:00 98.5 94 20 102/64 (77) 96 07/13/18 07:38 97 22 99 Nasal Cannula 2.0 28 07/13/18 07:37 96 Nasal Cannula 2.0 28 07/13/18 07:37 Nasal Cannula 2.0 28 07/13/18 07:32 91 18 96 Nasal Cannula 2.0 28 07/13/18 04:00 98.1 93 22 107/66 (80) 100 07/13/18 04:00 86 07/13/18 01:36 96 20 100 Nasal Cannula 2.0 28 07/13/18 01:26 80 18 98 Nasal Cannula 2.0 28 07/13/18 00:00 98.2 94 22 118/63 (81) 99 07/13/18 00:00 88 07/12/18 21:00 Nasal Cannula 2.0 07/12/18 20:24 95 20 100 Nasal Cannula 2.0 28 07/12/18 20:13 Nasal Cannula 2.0 28 07/12/18 20:13 99 Nasal Cannula 2.0 28 07/12/18 20:13 95 20 99 Nasal Cannula 2.0 28 07/12/18 20:00 98.6 93 22 113/65 (81) 100 07/12/18 20:00 95 07/12/18 16:00 96 07/12/18 16:00 99.0 97 20 104/59 (74) 100 Intake and Output 07/12/18 07/13/18 19:00 07:00 Output Total 650 ml 500 ml Balance -650 ml -500 ml Output Urine Total 650 ml 500 ml # Bowel Movements 2 2 Height (Feet): 5 Height (Inches): 3.00 Weight (Pounds): 112 General Appearance: no apparent distress Respiratory/Chest: decreased breath sounds Abdomen: soft Objective no change Chava Dwyer MD Jul 13, 2018 14:44
[2018-07-13 16:00] VITALS: BP 113/64
[2018-07-13 20:00] VITALS: BP 115/63
[2018-07-13] MEDS: Donepezil 10mg tab GT SCH (20:49)
[2018-07-14] VITALS: BP 120/67
[2018-07-14] MEDS: Albuterol/Ipratropium 3ml neb HHN SCH ×4 (01:09→20:35)
[2018-07-14 03:42] VITALS: BP 100/59
[2018-07-14] MEDS: Piperacillin/Tazobactam 3.375 GM in D5W 110 ML IVPB SCH ×3 (05:30→20:57)
[2018-07-14] MEDS: NovoLOG Insulin Flexpen SUBQ SCH ×3 (05:51→17:23)
[2018-07-14] MEDS: Minocycline HCl 50mg cap ORAL SCH ×2 (06:30→18:12)
[2018-07-14 06:43] LABS: BASOPHILS % (AUTO) 0.9 % (0.0-2.0); EOSINOPHILS % (AUTO) 5.8 % (0.0-3.0); HEMATOCRIT 28.5 % (42.0-52.0); HEMOGLOBIN 8.9 G/DL (14.2-18.0); LYMPHOCYTES % (AUTO) 15.5 % (20.0-45.0); MEAN CORPUSCULAR VOLUME 85 FL (80-99); MONOCYTES % (AUTO) 3.9 % (1.0-10.0); NEUTROPHILS % (AUTO) 73.9 % (45.0-75.0); PLATELET COUNT 534 K/UL (150-450); RED BLOOD COUNT 3.35 M/UL (4.70-6.10); RED CELL DISTRIBUTION WIDTH 16.6 % (11.6-14.8); WHITE BLOOD COUNT 10.8 K/UL (4.8-10.8)
[2018-07-14 07:07] LABS: ALANINE AMINOTRANSFERASE 13 U/L (12-78); ALBUMIN 2.3 G/DL (3.4-5.0); ALBUMIN/GLOBULIN RATIO 0.3 (1.0-2.7); ALKALINE PHOSPHATASE 144 U/L (46-116); ANION GAP 6 mmol/L (5-15); ASPARTATE AMINO TRANSFERASE 18 U/L (15-37); BILIRUBIN,TOTAL 0.2 MG/DL (0.2-1.0); BLOOD UREA NITROGEN 23 mg/dL (7-18); CALCIUM 9.2 MG/DL (8.5-10.1); CARBON DIOXIDE 33 MMOL/L (21-32); CHLORIDE 100 MMOL/L (98-107); CREATININE 0.6 MG/DL (0.55-1.30); PHOSPHORUS 3.5 MG/DL (2.5-4.9); POTASSIUM 4.1 MMOL/L (3.5-5.1); SODIUM 139 MMOL/L (136-145)
[2018-07-14 08:00] VITALS: BP 116/67
[2018-07-14] MEDS: Zinc Sulfate 220mg cap ORAL SCH (08:22)
[2018-07-14] MEDS: Multivitamin w/Minerals tab ORAL SCH (08:23)
[2018-07-14] MEDS: Aspirin Baby 81mg GT SCH (08:23)
[2018-07-14] MEDS: Ascorbic Acid 500mg tab GT SCH ×2 (08:23→17:21)
[2018-07-14] MEDS: Heparin 5000 units/ml inj SUBQ SCH ×2 (08:25→20:53)
[2018-07-14] MEDS: Levemir Flexpen SUBQ SCH ×2 (08:26→17:23)
--- NOTE | 2018-07-14 09:37 | Pulmonology Progress Note ---
Assessment/Plan Assessment/Plan ASSESSMENT: The patient is a 68-year-old male care home resident with acute on chronic hypoxemic hypercapnic respiratory failure, bilateral infiltrates, likely recurrent healthcare-associated pneumonia, dementia, CVA, dysphagia, hypertension, sacral ulcer and CAD. PROBLEM LIST: 1. Multifocal pneumonia, healthcare-associated pneumonia. 2. senior living resident. 3. Dementia/CVA. 4. Dysphagia. 5. Hypertension, CAD. 6. Protein albumin discordance. 7. Decubiti TREATMENT PLAN: 1. Optimize pulmonary hygiene/mobilize as tolerated. 2. Titrate down FiO2 to keep saturations greater than 90%. 3. P.r.n. BiPAP. 4. Continue antibiotics (Zosyn & Darrel) per ID, follow up cultures. 5. [id number] and p.r.n. bronchodilators. 6. Aspiration precautions, cautious tube feeds. 7. Monitor volumes and renal function. 8. Heparin subcutaneous for DVT prophylaxis. 9. DNR/DNI, continue discuss goals of care. Subjective Allergies: Coded Allergies: CEFTRIAXONE (Verified Allergy, Unknown, 04/04/18) Subjective AFVSS, O2 needs stable, monse TFs, no distress, no cough, no FC Objective Last 24 Hour Vital Signs Date Time Temp Pulse Resp B/P (MAP) Pulse Ox O2 Delivery O2 Flow Rate FiO2 07/14/18 09:00 Nasal Cannula 2.0 07/14/18 09:00 90 116/67 07/14/18 08:20 90 20 99 Nasal Cannula 2.0 28 07/14/18 08:13 99 Nasal Cannula 2.0 28 07/14/18 08:13 Nasal Cannula 2.0 28 07/14/18 08:11 88 20 99 Nasal Cannula 2.0 28 07/14/18 08:00 97.4 89 16 116/67 (83) 100 07/14/18 04:00 94 07/14/18 03:42 97.4 86 18 100/59 (73) 100 07/14/18 01:44 97 20 99 Nasal Cannula 2.0 28 07/14/18 01:09 98 20 99 Nasal Cannula 2.0 28 07/14/18 00:00 97.7 96 19 120/67 (84) 98 07/14/18 00:00 86 07/13/18 21:00 Nasal Cannula 2.0 07/13/18 20:09 100 20 100 Nasal Cannula 2.0 28 07/13/18 20:07 Nasal Cannula 2.0 28 07/13/18 20:07 98 Nasal Cannula 2.0 28 07/13/18 20:01 103 20 100 Nasal Cannula 2.0 28 07/13/18 20:00 97.9 106 19 115/63 (80) 97 07/13/18 20:00 106 07/13/18 16:46 92 07/13/18 16:00 98.1 91 20 113/64 (80) 98 07/13/18 13:05 93 20 99 Nasal Cannula 2.0 28 07/13/18 13:00 96 20 95 Nasal Cannula 2.0 28 07/13/18 12:00 98.4 95 20 112/62 (79) 97 07/13/18 12:00 72 Intake and Output 07/13/18 07/14/18 19:00 07:00 Intake Total 828 ml Output Total 650 ml 600 ml Balance -650 ml 228 ml Intake Free Water 120 ml IV Total 108 ml Tube Feeding 600 ml Output Urine Total 650 ml 600 ml # Bowel Movements 1 1 General Appearance: cachetic HEENT: normocephalic, atraumatic, anicteric, mucous membranes moist Respiratory/Chest: chest wall non-tender, lungs clear, normal breath sounds, no respiratory distress Cardiovascular: normal peripheral pulses, normal rate, regular rhythm Abdomen: normal bowel sounds, soft, non tender, no organomegaly, non distended , other - GT Extremities: no cyanosis, no clubbing, no edema, other - contracted Laboratory Tests 07/13/18 17:50: Stool Occult Blood [Pending] 07/14/18 05:00: White Blood Count 10.8, Red Blood Count 3.35L, Hemoglobin 8.9L, Hematocrit 28.5L , Mean Corpuscular Volume 85, Mean Corpuscular Hemoglobin 26.5L, Mean Corpuscular Hemoglobin Concent 31.3L, Red Cell Distribution Width 16.6H, Platelet Count 534H, Mean Platelet Volume 5.6L, Neutrophils (%) (Auto) 73.9, Lymphocytes (%) (Auto) 15.5L, Monocytes (%) (Auto) 3.9, Eosinophils (%) (Auto) 5.8H, Basophils (%) (Auto) 0.9, Sodium Level 139, Potassium Level 4.1, Chloride Level 100, Carbon Dioxide Level 33H, Anion Gap 6, Blood Urea Nitrogen 23H, Creatinine 0.6, Estimat Glomerular Filtration Rate > 60, Glucose Level 132H, Uric Acid 1.6L, Calcium Level 9.2, Phosphorus Level 3.5, Magnesium Level 2.0, Total Bilirubin 0.2, Aspartate Amino Transf (AST/SGOT) 18, Alanine Aminotransferase (ALT/SGPT) 13, Alkaline Phosphatase 144H, C-Reactive Protein, Quantitative 10.5H, Pro-B-Type Natriuretic Peptide 270H, Total Protein 10.3H, Albumin 2.3L, Globulin 8.0, Albumin/Globulin Ratio 0.3L Current Medications Medications (Trade) Dose Ordered Sig/Briseida Route PRN Reason Start Time Stop Time Status Last Admin Dose Admin Acetaminophen (Tylenol) 650 mg Q4H PRN GT wound care 07/10/18 02:00 08/09/18 01:59 07/10/18 17:14 Albuterol/ Ipratropium (Albuterol/ Ipratropium) 3 ml Q6HRT HHN 07/10/18 19:00 07/15/18 18:59 07/14/18 08:11 Amlodipine Besylate (Norvasc) 10 mg DAILY GT 07/11/18 09:00 08/09/18 08:59 07/11/18 08:29 Ascorbic Acid (Vitamin C) 500 mg BID GT 07/10/18 09:00 08/09/18 08:59 07/14/18 08:23 Aspirin (ASA) 81 mg DAILY GT 07/10/18 10:29 08/09/18 10:28 07/14/18 08:23 Dextrose (Dextrose 50%) 25 ml Q30M PRN IV Hypoglycemia 07/10/18 01:30 08/09/18 01:29 Dextrose (Dextrose 50%) 50 ml Q30M PRN IV Hypoglycemia 07/10/18 01:30 08/09/18 01:29 Donepezil HCl (Aricept) 10 mg BEDTIME GT 07/10/18 21:00 08/09/18 20:59 07/13/18 20:49 Finasteride (Proscar) 5 mg DAILY ORAL 07/10/18 09:00 08/09/18 08:59 07/14/18 08:22 Heparin Sodium (Porcine) (Heparin 5000 units/ml) 5,000 units EVERY 12 HOURS SUBQ 07/10/18 21:00 08/09/18 20:59 07/14/18 08:25 Insulin Aspart (NovoLOG) Q6H SUBQ 07/14/18 06:00 08/13/18 05:59 07/14/18 05:51 Insulin Detemir (Levemir) 6 units BID SUBQ 07/10/18 09:00 08/09/18 08:59 07/14/18 08:26 Ipratropium [place] (Atrovent) 500 mcg Q4H PRN HHN Shortness of Breath 07/10/18 02:00 07/15/18 01:59 Loratadine (Claritin 10mg) 10 mg DAILY ORAL 07/10/18 09:00 08/09/18 08:59 07/14/18 08:23 Metformin HCl (Glucophage) 850 mg DAILY GT 07/10/18 09:00 08/09/18 08:59 07/14/18 08:22 Minocycline HCl (Minocin) 100 mg Q12HR@0700,1900 ORAL 07/10/18 07:00 07/17/18 06:59 07/14/18 06:30 Multivitamins Therapeutic (Therapeutic Multivitamin) 1 ea DAILY ORAL 07/10/18 09:00 08/09/18 08:59 07/14/18 08:23 Piperacillin Sod/ Tazobactam Sod 3.375 gm/Dextrose 110 ml @ 27.5 mls/hr EVERY 8 HOURS IVPB 07/10/18 14:00 07/15/18 13:59 07/14/18 05:30 Sitagliptin Phosphate (Januvia) 100 mg DAILY ORAL 07/10/18 09:00 08/09/18 08:59 07/14/18 08:23 Zinc Sulfate (Zinc Sulfate) 220 mg DAILY ORAL 07/10/18 09:00 08/09/18 08:59 07/14/18 08:22 Yrn Buckley MD Jul 14, 2018 09:37
--- NOTE | 2018-07-14 10:43 | General Progress Note ---
Assessment/Plan Status: stable Assessment/Plan #. Anemia due to underlying chronic disease. ESR was 115 on last admission. Closely monitor for improvement. The patient has ongoing anemia, likely related to underlying decubitus ulceration. In addition to being chronically ill, bedbound, and hemoglobin, ferritin is >1000 --> transfuse if hgb <7 --> presurgery has been given 1 dose of epogen for more rapid recovery --> no hemolysis has been noted --> trend cbc daily --> new panel ordered. New ferritin at 345 --> discontinued ferrous sulfate #. Thrombocytosis is likely related to underlying anemia, infection, fevers --> Plt remains elevated --> trend platelet count --> continue on asa low dose #. Hyperproteinemia. Given albumin dissociation have ordered for spep and upep --> spep and upep have been ordered to evaluate for spike in m-spike, both are negative for m-spike --> continue to monitor in the future --> appreciate pulm recs #. Hospital-acquired pneumonia on prior admission --> repeat cxr shows bilateral interstitial and airspace disease --> s/p abx broad spectrum #. Azotemia. Given fluids as needed. BUN of 33. --> s/p ivf #. Stage IV ulcerations on the left and right side. Stage IV ulcerations --> Dr. Clark aware, following --> Wound cx is positive #. Dysphagia, status post PEG tube. #. Incontinence with a Beltran catheter in place. --> Beltran catheter is in place. --> uro recs as needed on last admission #. DPOA wants comfort care/conservative care GREATLY APPRECIATE CONSULTATION Subjective Date patient seen: Jul 14, 2018 Allergies: Coded Allergies: CEFTRIAXONE (Verified Allergy, Unknown, 04/04/18) Subjective Pt remains nonverbal and bedridden. No acute events.VS stable. Objective Last 24 Hour Vital Signs Date Time Temp Pulse Resp B/P (MAP) Pulse Ox O2 Delivery O2 Flow Rate FiO2 07/14/18 09:00 Nasal Cannula 2.0 07/14/18 09:00 90 116/67 07/14/18 08:20 90 20 99 Nasal Cannula 2.0 28 07/14/18 08:13 99 Nasal Cannula 2.0 28 07/14/18 08:13 Nasal Cannula 2.0 28 07/14/18 08:11 88 20 99 Nasal Cannula 2.0 28 07/14/18 08:00 89 07/14/18 08:00 97.4 89 16 116/67 (83) 100 07/14/18 04:00 94 07/14/18 03:42 97.4 86 18 100/59 (73) 100 07/14/18 01:44 97 20 99 Nasal Cannula 2.0 28 07/14/18 01:09 98 20 99 Nasal Cannula 2.0 28 07/14/18 00:00 97.7 96 19 120/67 (84) 98 07/14/18 00:00 86 07/13/18 21:00 Nasal Cannula 2.0 07/13/18 20:09 100 20 100 Nasal Cannula 2.0 28 07/13/18 20:07 Nasal Cannula 2.0 28 07/13/18 20:07 98 Nasal Cannula 2.0 28 07/13/18 20:01 103 20 100 Nasal Cannula 2.0 28 07/13/18 20:00 97.9 106 19 115/63 (80) 97 07/13/18 20:00 106 07/13/18 16:46 92 07/13/18 16:00 98.1 91 20 113/64 (80) 98 07/13/18 13:05 93 20 99 Nasal Cannula 2.0 28 07/13/18 13:00 96 20 95 Nasal Cannula 2.0 28 07/13/18 12:00 98.4 95 20 112/62 (79) 97 07/13/18 12:00 72 Intake and Output 07/13/18 07/14/18 19:00 07:00 Intake Total 828 ml Output Total 650 ml 600 ml Balance -650 ml 228 ml Intake Free Water 120 ml IV Total 108 ml Tube Feeding 600 ml Output Urine Total 650 ml 600 ml # Bowel Movements 1 1 Laboratory Tests 07/13/18 17:50: Stool Occult Blood [Pending] 07/14/18 05:00: White Blood Count 10.8, Red Blood Count 3.35L, Hemoglobin 8.9L, Hematocrit 28.5L , Mean Corpuscular Volume 85, Mean Corpuscular Hemoglobin 26.5L, Mean Corpuscular Hemoglobin Concent 31.3L, Red Cell Distribution Width 16.6H, Platelet Count 534H, Mean Platelet Volume 5.6L, Neutrophils (%) (Auto) 73.9, Lymphocytes (%) (Auto) 15.5L, Monocytes (%) (Auto) 3.9, Eosinophils (%) (Auto) 5.8H, Basophils (%) (Auto) 0.9, Sodium Level 139, Potassium Level 4.1, Chloride Level 100, Carbon Dioxide Level 33H, Anion Gap 6, Blood Urea Nitrogen 23H, Creatinine 0.6, Estimat Glomerular Filtration Rate > 60, Glucose Level 132H, Uric Acid 1.6L, Calcium Level 9.2, Phosphorus Level 3.5, Magnesium Level 2.0, Total Bilirubin 0.2, Aspartate Amino Transf (AST/SGOT) 18, Alanine Aminotransferase (ALT/SGPT) 13, Alkaline Phosphatase 144H, C-Reactive Protein, Quantitative 10.5H, Pro-B-Type Natriuretic Peptide 270H, Total Protein 10.3H, Albumin 2.3L, Globulin 8.0, Albumin/Globulin Ratio 0.3L Height (Feet): 5 Height (Inches): 3.00 Weight (Pounds): 112 Objective PHYSICAL EXAMINATION: VITAL SIGNS: Reviewed. GENERAL: Not in acute distress. The patient is contracted, lying in bed, bedbound, ill and lethargic. PULMONARY: Decreased breath sounds, 1 to 2+ crackles in bilateral lungs. Nasal cannula in place. CARDIOVASCULAR: Regular rate and crackles noted overlying the heart sounds. ABDOMEN: Soft, nontender, nondistended. Positive for G-tube. EXTREMITIES: No cyanosis or swelling noted Nikolai Richards MD Jul 14, 2018 10:43
--- NOTE | 2018-07-14 11:17 | Infectious Diseases Prog Note ---
Assessment/Plan Assessment/Plan A; Sepsis Pneumonia Pressure ulcer infection with ESBL organisms Dementia Anemia P: Continue Zosyn & Minocycline Subjective ROS Limited/Unobtainable: Yes Respiratory: Reports: productive cough Allergies: Coded Allergies: CEFTRIAXONE (Verified Allergy, Unknown, 04/04/18) Objective Vital Signs Last 24 Hour Vital Signs Date Time Temp Pulse Resp B/P (MAP) Pulse Ox O2 Delivery O2 Flow Rate FiO2 07/14/18 09:00 Nasal Cannula 2.0 07/14/18 09:00 90 116/67 07/14/18 08:20 90 20 99 Nasal Cannula 2.0 28 07/14/18 08:13 99 Nasal Cannula 2.0 28 07/14/18 08:13 Nasal Cannula 2.0 28 07/14/18 08:11 88 20 99 Nasal Cannula 2.0 28 07/14/18 08:00 89 07/14/18 08:00 97.4 89 16 116/67 (83) 100 07/14/18 04:00 94 07/14/18 03:42 97.4 86 18 100/59 (73) 100 07/14/18 01:44 97 20 99 Nasal Cannula 2.0 28 07/14/18 01:09 98 20 99 Nasal Cannula 2.0 28 07/14/18 00:00 97.7 96 19 120/67 (84) 98 07/14/18 00:00 86 07/13/18 21:00 Nasal Cannula 2.0 07/13/18 20:09 100 20 100 Nasal Cannula 2.0 28 07/13/18 20:07 Nasal Cannula 2.0 28 07/13/18 20:07 98 Nasal Cannula 2.0 28 07/13/18 20:01 103 20 100 Nasal Cannula 2.0 28 07/13/18 20:00 97.9 106 19 115/63 (80) 97 07/13/18 20:00 106 07/13/18 16:46 92 07/13/18 16:00 98.1 91 20 113/64 (80) 98 07/13/18 13:05 93 20 99 Nasal Cannula 2.0 28 07/13/18 13:00 96 20 95 Nasal Cannula 2.0 28 07/13/18 12:00 98.4 95 20 112/62 (79) 97 07/13/18 12:00 72 Height (Feet): 5 Height (Inches): 3.00 Weight (Pounds): 112 HEENT: mucous membranes moist Respiratory/Chest: rhonchi - bilaterally Cardiovascular: normal rate Abdomen: soft, non tender, other - GT feeding Extremities: no edema Skin: ulcers Neurologic/Psychiatric: aphasia Laboratory Tests Test 07/13/18 17:50 07/14/18 05:00 Stool Occult Blood Negative (NEGATIVE) White Blood Count 10.8 K/UL (4.8-10.8) Red Blood Count 3.35 M/UL (4.70-6.10) L Hemoglobin 8.9 G/DL (14.2-18.0) L Hematocrit 28.5 % (42.0-52.0) L Mean Corpuscular Volume 85 FL (80-99) Mean Corpuscular Hemoglobin 26.5 PG (27.0-31.0) L Mean Corpuscular Hemoglobin Concent 31.3 G/DL (32.0-36.0) L Red Cell Distribution Width 16.6 % (11.6-14.8) H Platelet Count 534 K/UL (150-450) H Mean Platelet Volume 5.6 FL (6.5-10.1) L Neutrophils (%) (Auto) 73.9 % (45.0-75.0) Lymphocytes (%) (Auto) 15.5 % (20.0-45.0) L Monocytes (%) (Auto) 3.9 % (1.0-10.0) Eosinophils (%) (Auto) 5.8 % (0.0-3.0) H Basophils (%) (Auto) 0.9 % (0.0-2.0) Sodium Level 139 MMOL/L (136-145) Potassium Level 4.1 MMOL/L (3.5-5.1) Chloride Level 100 MMOL/L (98-107) Carbon Dioxide Level 33 MMOL/L (21-32) H Anion Gap 6 mmol/L (5-15) Blood Urea Nitrogen 23 mg/dL (7-18) H Creatinine 0.6 MG/DL (0.55-1.30) Estimat Glomerular Filtration Rate > 60 mL/min (>60) Glucose Level 132 MG/DL (74-106) H Uric Acid 1.6 MG/DL (2.6-7.2) L Calcium Level 9.2 MG/DL (8.5-10.1) Phosphorus Level 3.5 MG/DL (2.5-4.9) Magnesium Level 2.0 MG/DL (1.8-2.4) Total Bilirubin 0.2 MG/DL (0.2-1.0) Aspartate Amino Transf (AST/SGOT) 18 U/L (15-37) Alanine Aminotransferase (ALT/SGPT) 13 U/L (12-78) Alkaline Phosphatase 144 U/L (46-116) H C-Reactive Protein, Quantitative 10.5 mg/dL (0.00-0.90) H Pro-B-Type Natriuretic Peptide 270 pg/mL (0-125) H Total Protein 10.3 G/DL (6.4-8.2) H Albumin 2.3 G/DL (3.4-5.0) L Globulin 8.0 g/dL Albumin/Globulin Ratio 0.3 (1.0-2.7) L Current Medications Medications (Trade) Dose Ordered Sig/Briseida Route PRN Reason Start Time Stop Time Status Last Admin Dose Admin Acetaminophen (Tylenol) 650 mg Q4H PRN GT wound care 07/10/18 02:00 08/09/18 01:59 07/10/18 17:14 Albuterol/ Ipratropium (Albuterol/ Ipratropium) 3 ml Q6HRT HHN 07/10/18 19:00 07/15/18 18:59 07/14/18 08:11 Amlodipine Besylate (Norvasc) 10 mg DAILY GT 07/11/18 09:00 08/09/18 08:59 07/11/18 08:29 Ascorbic Acid (Vitamin C) 500 mg BID GT 07/10/18 09:00 08/09/18 08:59 07/14/18 08:23 Aspirin (ASA) 81 mg DAILY GT 07/10/18 10:29 08/09/18 10:28 07/14/18 08:23 Dextrose (Dextrose 50%) 25 ml Q30M PRN IV Hypoglycemia 07/10/18 01:30 08/09/18 01:29 Dextrose (Dextrose 50%) 50 ml Q30M PRN IV Hypoglycemia 07/10/18 01:30 08/09/18 01:29 Donepezil HCl (Aricept) 10 mg BEDTIME GT 07/10/18 21:00 08/09/18 20:59 07/13/18 20:49 Finasteride (Proscar) 5 mg DAILY ORAL 07/10/18 09:00 08/09/18 08:59 07/14/18 08:22 Heparin Sodium (Porcine) (Heparin 5000 units/ml) 5,000 units EVERY 12 HOURS SUBQ 07/10/18 21:00 08/09/18 20:59 07/14/18 08:25 Insulin Aspart (NovoLOG) Q6H SUBQ 07/14/18 06:00 08/13/18 05:59 07/14/18 05:51 Insulin Detemir (Levemir) 6 units BID SUBQ 07/10/18 09:00 08/09/18 08:59 07/14/18 08:26 Ipratropium [place] (Atrovent) 500 mcg Q4H PRN HHN Shortness of Breath 07/10/18 02:00 07/15/18 01:59 Loratadine (Claritin 10mg) 10 mg DAILY ORAL 07/10/18 09:00 08/09/18 08:59 07/14/18 08:23 Metformin HCl (Glucophage) 850 mg DAILY GT 07/10/18 09:00 08/09/18 08:59 07/14/18 08:22 Minocycline HCl (Minocin) 100 mg Q12HR@0700,1900 ORAL 07/10/18 07:00 07/17/18 06:59 07/14/18 06:30 Multivitamins Therapeutic (Therapeutic Multivitamin) 1 ea DAILY ORAL 07/10/18 09:00 08/09/18 08:59 07/14/18 08:23 Piperacillin Sod/ Tazobactam Sod 3.375 gm/Dextrose 110 ml @ 27.5 mls/hr EVERY 8 HOURS IVPB 07/10/18 14:00 07/19/18 13:59 07/14/18 05:30 Sitagliptin Phosphate (Januvia) 100 mg DAILY ORAL 07/10/18 09:00 08/09/18 08:59 07/14/18 08:23 Zinc Sulfate (Zinc Sulfate) 220 mg DAILY ORAL 07/10/18 09:00 08/09/18 08:59 07/14/18 08:22 Herson Palmer MD Jul 14, 2018 11:17
--- NOTE | 2018-07-14 11:20 | Nephrology Progress Note ---
Assessment/Plan Problem List: (1) UTI (urinary tract infection) (2) Cachexia (3) Proteinuria (4) Functional quadriplegia Assessment Presents with fever 1) Cachexia / Malnutrition (2) Proteinuria (3) UTI (urinary tract infection) (4) Diabetes mellitus out of control (5) Dementia Plan Pulmonary toilet Antibiotics Monitor renal parameters hold bp meds- parameters albumin bolus as needed Subjective ROS Limited/Unobtainable: No Constitutional: Reports: malaise, weakness Objective Objective Last 24 Hour Vital Signs Date Time Temp Pulse Resp B/P (MAP) Pulse Ox O2 Delivery O2 Flow Rate FiO2 07/14/18 09:00 Nasal Cannula 2.0 07/14/18 09:00 90 116/67 07/14/18 08:20 90 20 99 Nasal Cannula 2.0 28 07/14/18 08:13 99 Nasal Cannula 2.0 28 07/14/18 08:13 Nasal Cannula 2.0 28 07/14/18 08:11 88 20 99 Nasal Cannula 2.0 28 07/14/18 08:00 89 07/14/18 08:00 97.4 89 16 116/67 (83) 100 07/14/18 04:00 94 07/14/18 03:42 97.4 86 18 100/59 (73) 100 07/14/18 01:44 97 20 99 Nasal Cannula 2.0 28 07/14/18 01:09 98 20 99 Nasal Cannula 2.0 28 07/14/18 00:00 97.7 96 19 120/67 (84) 98 07/14/18 00:00 86 07/13/18 21:00 Nasal Cannula 2.0 07/13/18 20:09 100 20 100 Nasal Cannula 2.0 28 07/13/18 20:07 Nasal Cannula 2.0 28 07/13/18 20:07 98 Nasal Cannula 2.0 28 07/13/18 20:01 103 20 100 Nasal Cannula 2.0 28 07/13/18 20:00 97.9 106 19 115/63 (80) 97 07/13/18 20:00 106 07/13/18 16:46 92 07/13/18 16:00 98.1 91 20 113/64 (80) 98 07/13/18 13:05 93 20 99 Nasal Cannula 2.0 28 07/13/18 13:00 96 20 95 Nasal Cannula 2.0 28 07/13/18 12:00 98.4 95 20 112/62 (79) 97 07/13/18 12:00 72 Intake and Output 07/13/18 07/14/18 19:00 07:00 Intake Total 828 ml Output Total 650 ml 600 ml Balance -650 ml 228 ml Intake Free Water 120 ml IV Total 108 ml Tube Feeding 600 ml Output Urine Total 650 ml 600 ml # Bowel Movements 1 1 Laboratory Tests 07/13/18 17:50: Stool Occult Blood Negative 07/14/18 05:00: White Blood Count 10.8, Red Blood Count 3.35L, Hemoglobin 8.9L, Hematocrit 28.5L , Mean Corpuscular Volume 85, Mean Corpuscular Hemoglobin 26.5L, Mean Corpuscular Hemoglobin Concent 31.3L, Red Cell Distribution Width 16.6H, Platelet Count 534H, Mean Platelet Volume 5.6L, Neutrophils (%) (Auto) 73.9, Lymphocytes (%) (Auto) 15.5L, Monocytes (%) (Auto) 3.9, Eosinophils (%) (Auto) 5.8H, Basophils (%) (Auto) 0.9, Sodium Level 139, Potassium Level 4.1, Chloride Level 100, Carbon Dioxide Level 33H, Anion Gap 6, Blood Urea Nitrogen 23H, Creatinine 0.6, Estimat Glomerular Filtration Rate > 60, Glucose Level 132H, Uric Acid 1.6L, Calcium Level 9.2, Phosphorus Level 3.5, Magnesium Level 2.0, Total Bilirubin 0.2, Aspartate Amino Transf (AST/SGOT) 18, Alanine Aminotransferase (ALT/SGPT) 13, Alkaline Phosphatase 144H, C-Reactive Protein, Quantitative 10.5H, Pro-B-Type Natriuretic Peptide 270H, Total Protein 10.3H, Albumin 2.3L, Globulin 8.0, Albumin/Globulin Ratio 0.3L Height (Feet): 5 Height (Inches): 3.00 Weight (Pounds): 112 General Appearance: no apparent distress Cardiovascular: tachycardia Respiratory/Chest: decreased breath sounds Abdomen: distended Objective no change Chava Dwyer MD Jul 14, 2018 11:20
[2018-07-14 12:00] VITALS: BP 111/66
--- NOTE | 2018-07-14 12:56 | Consultation ---
History of Present Illness General Chief Complaint: Fever Present Illness HPI 68-year-old male who is a [place] [place] admitted for fever. the pt is non-verbal and has anxiety. the pt is unable to provide any hx. the pt has memory impairment Allergies: Coded Allergies: CEFTRIAXONE (Verified Allergy, Unknown, 04/04/18) Medication History Scheduled Amlodipine Besylate* (Amlodipine Besylate*), 10 MG GT DAILY, (Reported) Arginine/Ascorbate Sod/Abigail AC (Arginaid Powder), 1 EACH GT BID, (Reported) Ascorbic Acid* (Vitamin C*), 500 MG GT BID, (Reported) Aspirin* (Aspir 81*), 81 MG GT DAILY, (Reported) Cranberry Extract (Cranberry Extract), 425 MG GT BID, (Reported) Donepezil HCl (Aricept), 10 MG GT BEDTIME, (Reported) Dutasteride (Avodart), 0.5 MG GT DAILY, (Reported) Ferrous Sulfate* (Ferrous Sulfate*), 325 MG ORAL TID, (Reported) Insulin Detemir (Levemir Flexpen), 6 UNITS SUBQ BID, (Reported) Loratadine (Loratadine), 10 MG GT DAILY, (Reported) Metformin Hcl* (Metformin Hcl*), 850 MG GT DAILY, (Reported) Minocycline Hcl (Minocycline Hcl), 100 MG PO Q12HR, (Reported) Multivitamin With Minerals (Multivitamins With Minerals*), 1 TAB GT DAILY, ( Reported) Povidone-Iodine (Povidone-Iodine), 1 APPLIC TP DAILY, (Reported) Sitagliptin* (Januvia*), 100 MG ORAL DAILY, (Reported) Zinc Sulfate (Zinc Sulfate*), 220 MG ORAL DAILY, (Reported) Scheduled PRN Acetaminophen* (Acetaminophen 325MG Tablet*), 650 MG GT Q4H PRN for wound care, (Reported) Ipratropium [place] 0.5MG/2.5ML (Ipratropium [place] 0.5MG/2.5ML), 0.5 MG HHN Q4HR PRN for Shortness of Breath, (Reported) Miscellaneous Medications Collagen, Hydrolysate (Bovine) (Collagen Hydrolysate), 100 GM MC, (Reported) Insulin Aspart* (Novolog*), 0 SUBQ, (Reported) Patient History Limited by: medical condition History Provided By: Patient, Medical Record, PMD Healthcare decision maker Resuscitation status Do Not Resuscitate Advanced Directive on File No Past Medical/Surgical History Past Medical/Surgical History: (1) Do not resuscitate (2) Cachexia (3) Fever (4) Sepsis (5) UTI (urinary tract infection) (6) PNA (pneumonia) (7) Decubitus ulcer of left hip, stage 4 (8) Decubitus ulcer of right hip, stage 3 (9) Proteinuria (10) Functional quadriplegia (11) Acute renal failure (12) Decubitus skin ulcer (13) Diabetes mellitus out of control (14) HCAP (healthcare-associated pneumonia) (15) Sacral decubitus ulcer, stage IV (16) 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4 86 18 100/59 (73) 100 07/14/18 01:44 97 20 99 Nasal Cannula 2.0 28 07/14/18 01:09 98 20 99 Nasal Cannula 2.0 28 07/14/18 00:00 97.7 96 19 120/67 (84) 98 07/14/18 00:00 86 07/13/18 21:00 Nasal Cannula 2.0 07/13/18 20:09 100 20 100 Nasal Cannula 2.0 28 07/13/18 20:07 Nasal Cannula 2.0 28 07/13/18 20:07 98 Nasal Cannula 2.0 28 07/13/18 20:01 103 20 100 Nasal Cannula 2.0 28 07/13/18 20:00 97.9 106 19 115/63 (80) 97 07/13/18 20:00 106 07/13/18 16:46 92 07/13/18 16:00 98.1 91 20 113/64 (80) 98 07/13/18 13:05 93 20 99 Nasal Cannula 2.0 28 07/13/18 13:00 96 20 95 Nasal Cannula 2.0 28 Intake and Output 07/13/18 07/14/18 19:00 07:00 Intake Total 828 ml Output Total 650 ml 600 ml Balance -650 ml 228 ml Intake Free Water 120 ml IV Total 108 ml Tube Feeding 600 ml Output Urine Total 650 ml 600 ml # Bowel Movements 1 1 Laboratory Tests Test 07/13/18 17:50 07/14/18 05:00 Stool Occult Blood Negative (NEGATIVE) White Blood Count 10.8 K/UL (4.8-10.8) Red Blood Count 3.35 M/UL (4.70-6.10) L Hemoglobin 8.9 G/DL (14.2-18.0) L Hematocrit 28.5 % (42.0-52.0) L Mean Corpuscular Volume 85 FL (80-99) Mean Corpuscular Hemoglobin 26.5 PG (27.0-31.0) L Mean Corpuscular Hemoglobin Concent 31.3 G/DL (32.0-36.0) L Red Cell Distribution Width 16.6 % (11.6-14.8) H Platelet Count 534 K/UL (150-450) H Mean Platelet Volume 5.6 FL (6.5-10.1) L Neutrophils (%) (Auto) 73.9 % (45.0-75.0) Lymphocytes (%) (Auto) 15.5 % (20.0-45.0) L Monocytes (%) (Auto) 3.9 % (1.0-10.0) Eosinophils (%) (Auto) 5.8 % (0.0-3.0) H Basophils (%) (Auto) 0.9 % (0.0-2.0) Sodium Level 139 MMOL/L (136-145) Potassium Level 4.1 MMOL/L (3.5-5.1) Chloride Level 100 MMOL/L (98-107) Carbon Dioxide Level 33 MMOL/L (21-32) H Anion Gap 6 mmol/L (5-15) Blood Urea Nitrogen 23 mg/dL (7-18) H Creatinine 0.6 MG/DL (0.55-1.30) Estimat Glomerular Filtration Rate > 60 mL/min (>60) Glucose Level 132 MG/DL (74-106) H Uric Acid 1.6 MG/DL (2.6-7.2) L Calcium Level 9.2 MG/DL (8.5-10.1) Phosphorus Level 3.5 MG/DL (2.5-4.9) Magnesium Level 2.0 MG/DL (1.8-2.4) Total Bilirubin 0.2 MG/DL (0.2-1.0) Aspartate Amino Transf (AST/SGOT) 18 U/L (15-37) Alanine Aminotransferase (ALT/SGPT) 13 U/L (12-78) Alkaline Phosphatase 144 U/L (46-116) H C-Reactive Protein, Quantitative 10.5 mg/dL (0.00-0.90) H Pro-B-Type Natriuretic Peptide 270 pg/mL (0-125) H Total Protein 10.3 G/DL (6.4-8.2) H Albumin 2.3 G/DL (3.4-5.0) L Globulin 8.0 g/dL Albumin/Globulin Ratio 0.3 (1.0-2.7) L Height (Feet): 5 Height (Inches): 3.00 Weight (Pounds): 112 Medications Current Medications Medications (Trade) Dose Ordered Sig/Briseida Route PRN Reason Start Time Stop Time Status Last Admin Dose Admin Acetaminophen (Tylenol) 650 mg Q4H PRN GT wound care 07/10/18 02:00 08/09/18 01:59 07/10/18 17:14 Albuterol/ Ipratropium (Albuterol/ Ipratropium) 3 ml Q6HRT HHN 07/10/18 19:00 07/15/18 18:59 07/14/18 08:11 Amlodipine Besylate (Norvasc) 10 mg DAILY GT 07/11/18 09:00 08/09/18 08:59 07/11/18 08:29 Ascorbic Acid (Vitamin C) 500 mg BID GT 07/10/18 09:00 08/09/18 08:59 07/14/18 08:23 Aspirin (ASA) 81 mg DAILY GT 07/10/18 10:29 08/09/18 10:28 07/14/18 08:23 Dextrose (Dextrose 50%) 25 ml Q30M PRN IV Hypoglycemia 07/10/18 01:30 08/09/18 01:29 Dextrose (Dextrose 50%) 50 ml Q30M PRN IV Hypoglycemia 07/10/18 01:30 08/09/18 01:29 Donepezil HCl (Aricept) 10 mg BEDTIME GT 07/10/18 21:00 08/09/18 20:59 07/13/18 20:49 Finasteride (Proscar) 5 mg DAILY ORAL 07/10/18 09:00 08/09/18 08:59 07/14/18 08:22 Heparin Sodium (Porcine) (Heparin 5000 units/ml) 5,000 units EVERY 12 HOURS SUBQ 07/10/18 21:00 08/09/18 20:59 07/14/18 08:25 Insulin Aspart (NovoLOG) Q6H SUBQ 07/14/18 06:00 08/13/18 05:59 07/14/18 12:39 Insulin Detemir (Levemir) 6 units BID SUBQ 07/10/18 09:00 08/09/18 08:59 07/14/18 08:26 Ipratropium [place] (Atrovent) 500 mcg Q4H PRN HHN Shortness of Breath 07/10/18 02:00 07/15/18 01:59 Loratadine (Claritin 10mg) 10 mg DAILY ORAL 07/10/18 09:00 08/09/18 08:59 07/14/18 08:23 Metformin HCl (Glucophage) 850 mg DAILY GT 07/10/18 09:00 08/09/18 08:59 07/14/18 08:22 Minocycline HCl (Minocin) 100 mg Q12HR@0700,1900 ORAL 07/10/18 07:00 07/17/18 06:59 07/14/18 06:30 Multivitamins Therapeutic (Therapeutic Multivitamin) 1 ea DAILY ORAL 07/10/18 09:00 08/09/18 08:59 07/14/18 08:23 Piperacillin Sod/ Tazobactam Sod 3.375 gm/Dextrose 110 ml @ 27.5 mls/hr EVERY 8 HOURS IVPB 07/10/18 14:00 07/19/18 13:59 07/14/18 05:30 Sitagliptin Phosphate (Januvia) 100 mg DAILY ORAL 07/10/18 09:00 08/09/18 08:59 07/14/18 08:23 Zinc Sulfate (Zinc Sulfate) 220 mg DAILY ORAL 07/10/18 09:00 08/09/18 08:59 07/14/18 08:22 Assessment/Plan Problem List: (1) Dementia ICD Codes: F03.90 - Unspecified dementia without behavioral disturbance SNOMED: 21640581 Assessment/Plan Aricept Ativan prn the pt lacks capacity to make decisions. Shawn Meza MD Jul 14, 2018 12:56
--- NOTE | 2018-07-14 14:00 | General Surgery Progress Note ---
General Surgery-Progress Note Subjective Additional Comments no acute events. stable Objective Last 24 Hour Vital Signs Date Time Temp Pulse Resp B/P (MAP) Pulse Ox O2 Delivery O2 Flow Rate FiO2 07/14/18 12:00 97.9 80 18 111/66 (81) 100 07/14/18 09:00 Nasal Cannula 2.0 07/14/18 09:00 90 116/67 07/14/18 08:20 90 20 99 Nasal Cannula 2.0 28 07/14/18 08:13 99 Nasal Cannula 2.0 28 07/14/18 08:13 Nasal Cannula 2.0 28 07/14/18 08:11 88 20 99 Nasal Cannula 2.0 28 07/14/18 08:00 89 07/14/18 08:00 97.4 89 16 116/67 (83) 100 07/14/18 04:00 94 07/14/18 03:42 97.4 86 18 100/59 (73) 100 07/14/18 01:44 97 20 99 Nasal Cannula 2.0 28 07/14/18 01:09 98 20 99 Nasal Cannula 2.0 28 07/14/18 00:00 97.7 96 19 120/67 (84) 98 07/14/18 00:00 86 07/13/18 21:00 Nasal Cannula 2.0 07/13/18 20:09 100 20 100 Nasal Cannula 2.0 28 07/13/18 20:07 Nasal Cannula 2.0 28 07/13/18 20:07 98 Nasal Cannula 2.0 28 07/13/18 20:01 103 20 100 Nasal Cannula 2.0 28 07/13/18 20:00 97.9 106 19 115/63 (80) 97 07/13/18 20:00 106 07/13/18 16:46 92 07/13/18 16:00 98.1 91 20 113/64 (80) 98 I&O Intake and Output 07/13/18 07/14/18 19:00 07:00 Intake Total 828 ml Output Total 650 ml 600 ml Balance -650 ml 228 ml Intake Free Water 120 ml IV Total 108 ml Tube Feeding 600 ml Output Urine Total 650 ml 600 ml # Bowel Movements 1 1 Dressing: saturated Wound: other Drains: other Cardiovascular: RSR Respiratory: clear, decreased breath sounds Abdomen: soft, non-tender, present bowel sounds, other Extremities: no cyanosis, other Laboratory Tests Test 07/13/18 17:50 07/14/18 05:00 Stool Occult Blood Negative (NEGATIVE) White Blood Count 10.8 K/UL (4.8-10.8) Red Blood Count 3.35 M/UL (4.70-6.10) L Hemoglobin 8.9 G/DL (14.2-18.0) L Hematocrit 28.5 % (42.0-52.0) L Mean Corpuscular Volume 85 FL (80-99) Mean Corpuscular Hemoglobin 26.5 PG (27.0-31.0) L Mean Corpuscular Hemoglobin Concent 31.3 G/DL (32.0-36.0) L Red Cell Distribution Width 16.6 % (11.6-14.8) H Platelet Count 534 K/UL (150-450) H Mean Platelet Volume 5.6 FL (6.5-10.1) L Neutrophils (%) (Auto) 73.9 % (45.0-75.0) Lymphocytes (%) (Auto) 15.5 % (20.0-45.0) L Monocytes (%) (Auto) 3.9 % (1.0-10.0) Eosinophils (%) (Auto) 5.8 % (0.0-3.0) H Basophils (%) (Auto) 0.9 % (0.0-2.0) Sodium Level 139 MMOL/L (136-145) Potassium Level 4.1 MMOL/L (3.5-5.1) Chloride Level 100 MMOL/L (98-107) Carbon Dioxide Level 33 MMOL/L (21-32) H Anion Gap 6 mmol/L (5-15) Blood Urea Nitrogen 23 mg/dL (7-18) H Creatinine 0.6 MG/DL (0.55-1.30) Estimat Glomerular Filtration Rate > 60 mL/min (>60) Glucose Level 132 MG/DL (74-106) H Uric Acid 1.6 MG/DL (2.6-7.2) L Calcium Level 9.2 MG/DL (8.5-10.1) Phosphorus Level 3.5 MG/DL (2.5-4.9) Magnesium Level 2.0 MG/DL (1.8-2.4) Total Bilirubin 0.2 MG/DL (0.2-1.0) Aspartate Amino Transf (AST/SGOT) 18 U/L (15-37) Alanine Aminotransferase (ALT/SGPT) 13 U/L (12-78) Alkaline Phosphatase 144 U/L (46-116) H C-Reactive Protein, Quantitative 10.5 mg/dL (0.00-0.90) H Pro-B-Type Natriuretic Peptide 270 pg/mL (0-125) H Total Protein 10.3 G/DL (6.4-8.2) H Albumin 2.3 G/DL (3.4-5.0) L Globulin 8.0 g/dL Albumin/Globulin Ratio 0.3 (1.0-2.7) L Plan Problems: (1) Sacral decubitus ulcer, stage IV Assessment & Plan: Pt presents with multiple full thickness pressure injuries R trochanteric pressure injury (L)3cm x (W)2.5cm,80% mixed soft necrosis and slough,otherwise granular with macerated borders.Periwound dark and indurated. Full thickness sacral pressure injury (L)9.4cm x (W)11.5cm x (D)2.5cm .Wound bed with good granulation tissue. Bone is visible .Small amt non-odorous brown exudate noted. Full thickness pressure injury to L trochanter (L)5.5cmx(W)4cm x0.8cm, undermining 11-6cm by 1.4cm @5o'clock. Both heels boggy with dark non-blanching erythema. All wounds present upon admission and will be cared for during admission Tx.Plan: Cleanse Sacral and L trochanteric wounds with Saline .Loosely pack with Hydrogel impregnated gauze. Cavilon to Borders and periwound. Cleanse R trochanteric wound with Saline.Apply Therahoney gel .Cavilon to borders .Cover with Optifoam drsg Daily and prn. Apply Cavilon to both heels.Cover with Optifoam drsg.Change every 7days and prn.Off-load heels with pillow. Reposition at minimum every 2hours or as tolerated. Air Fluidized mattress. bone exposed on sacral area. cultures noted. likely some chronic osteo but no acute active infection noted. Shamar Clark Jul 14, 2018 14:00
[2018-07-14 16:00] VITALS: BP 107/58
[2018-07-14 20:00] VITALS: BP 105/59
[2018-07-14] MEDS: Donepezil 10mg tab GT SCH (20:56)
[2018-07-15] VITALS: BP 93/51
--- NOTE | 2018-07-15 00:15 | Progress Note ---
DATE: 07/14/2018 SUBJECTIVE: The patient is nonverbal, admitted for sepsis. The patient has multiple decubiti and also pneumonia, congestion. The patient has frequent suctioning. Next, lungs are improved. Abdomen is soft. Multiple decubitus. ASSESSMENT AND PLAN: Pneumonia. Continue suctioning. Antibiotics per Infectious Disease. The patient is clinically improving. Review chart and labs. Jamia Wu M.D. DR: PAULINA JOB#: [id number] CC:
[2018-07-15] MEDS: NovoLOG Insulin Flexpen SUBQ SCH ×5 (00:18→23:35)
[2018-07-15] MEDS: Albuterol/Ipratropium 3ml neb HHN SCH ×3 (01:13→13:15)
[2018-07-15 04:00] VITALS: BP 115/68
[2018-07-15] MEDS: Minocycline HCl 50mg cap ORAL SCH ×2 (06:13→18:34)
[2018-07-15] MEDS: Piperacillin/Tazobactam 3.375 GM in D5W 110 ML IVPB SCH ×3 (06:13→21:38)
--- NOTE | 2018-07-15 06:42 | General Progress Note ---
Assessment/Plan Assessment/Plan #. Anemia due to underlying chronic disease. ESR was 115 on last admission. Closely monitor for improvement. The patient has ongoing anemia, likely related to underlying decubitus ulceration. In addition to being chronically ill, bedbound, and hemoglobin, ferritin is >1000 --> transfuse if hgb <7 --> has been given 1 dose of epogen for more rapid recovery --> no hemolysis has been noted --> trend cbc daily --> new panel ordered. New ferritin at 345 --> have discontinued ferrous sulfate #. Thrombocytosis is likely related to underlying anemia, infection, fevers --> Plt remains elevated --> trend platelet count --> continue on asa low dose #. Hyperproteinemia. Given albumin dissociation have ordered for spep and upep --> spep and upep have been ordered to evaluate for spike in m-spike, both are negative for m-spike --> continue to monitor in the future --> appreciate pulm recs #. Hospital-acquired pneumonia on prior admission --> repeat cxr shows bilateral interstitial and airspace disease --> s/p abx broad spectrum #. Azotemia. Given fluids as needed. BUN of 33. --> s/p ivf #. Stage IV ulcerations on the left and right side. Stage IV ulcerations --> Dr. Clark aware, is following --> Wound cx is positive on abx --> cream barriers calvion being applied, jaime as well #. Dysphagia, status post PEG tube. #. Incontinence with a Beltran catheter in place. --> Beltran catheter is in place. --> uro recs as needed on last admission #. DPOA wants comfort care/conservative care GREATLY APPRECIATE CONSULTATION Subjective Allergies: Coded Allergies: CEFTRIAXONE (Verified Allergy, Unknown, 04/04/18) Subjective Pt remains nonverbal and bedridden. No acute events.VS stable. Calvion cream being applied to wound borders. Objective Last 24 Hour Vital Signs Date Time Temp Pulse Resp B/P (MAP) Pulse Ox O2 Delivery O2 Flow Rate FiO2 07/15/18 04:00 97.9 94 20 115/68 (84) 99 07/15/18 03:24 100 07/15/18 01:27 98 20 99 Nasal Cannula 2.0 28 07/15/18 01:14 98 20 99 Nasal Cannula 2.0 28 07/15/18 00:00 98.4 95 20 93/51 (65) 99 07/14/18 23:26 104 07/14/18 21:00 Nasal Cannula 2.0 07/14/18 20:46 92 20 99 Nasal Cannula 2.0 28 07/14/18 20:36 99 Nasal Cannula 2.0 28 07/14/18 20:36 Nasal Cannula 2.0 28 07/14/18 20:35 99 20 100 Nasal Cannula 2.0 28 07/14/18 20:00 98.9 104 20 105/59 (74) 99 07/14/18 19:00 101 07/14/18 16:00 98.5 98 16 107/58 (74) 100 07/14/18 16:00 98 07/14/18 14:50 95 20 99 Nasal Cannula 2.0 28 07/14/18 14:34 91 20 99 Nasal Cannula 2.0 28 07/14/18 12:00 89 07/14/18 12:00 97.9 80 18 111/66 (81) 100 07/14/18 09:00 Nasal Cannula 2.0 07/14/18 09:00 90 116/67 07/14/18 08:20 90 20 99 Nasal Cannula 2.0 28 07/14/18 08:13 99 Nasal Cannula 2.0 28 07/14/18 08:13 Nasal Cannula 2.0 28 07/14/18 08:11 88 20 99 Nasal Cannula 2.0 28 07/14/18 08:00 89 07/14/18 08:00 97.4 89 16 116/67 (83) 100 Intake and Output 07/14/18 07/15/18 19:00 07:00 Intake Total 942.5 ml 660 ml Output Total 450 ml 600 ml Balance 492.5 ml 60 ml Intake Free Water 150 ml 110 ml IV Total 192.5 ml Tube Feeding 600 ml 550 ml Output Urine Total 450 ml 600 ml # Bowel Movements 2 Height (Feet): 5 Height (Inches): 3.00 Weight (Pounds): 112 General Appearance: alert EENT: normal ENT inspection Neck: supple Cardiovascular: normal rate Respiratory/Chest: chest wall non-tender Extremities: non-tender Edema: 1+ Leg (L), 1+ Leg (R) Edema: trace edema Neurologic: alert Skin: warm/dry Objective PHYSICAL EXAMINATION: VITAL SIGNS: Reviewed. GENERAL: Not in acute distress. The patient is contracted, lying in bed, bedbound, ill and lethargic. PULMONARY: Decreased breath sounds, 1 to 2+ crackles in bilateral lungs. Nasal cannula in place. CARDIOVASCULAR: Regular rate and crackles noted overlying the heart sounds. ABDOMEN: Soft, nontender, nondistended. Positive for G-tube. EXTREMITIES: No cyanosis or swelling noted Nikolai Richards MD Jul 15, 2018 06:42
[2018-07-15 07:04] LABS: EOSINOPHILS % (AUTO) 8.3 % (0.0-3.0); HEMATOCRIT 27.7 % (42.0-52.0); HEMOGLOBIN 8.7 G/DL (14.2-18.0); LYMPHOCYTES % (AUTO) 12.2 % (20.0-45.0); MEAN CORPUSCULAR VOLUME 85 FL (80-99); MONOCYTES % (AUTO) 4.3 % (1.0-10.0); NEUTROPHILS % (AUTO) 74.3 % (45.0-75.0); PLATELET COUNT 528 K/UL (150-450); RED BLOOD COUNT 3.26 M/UL (4.70-6.10); RED CELL DISTRIBUTION WIDTH 16.9 % (11.6-14.8); WHITE BLOOD COUNT 11.2 K/UL (4.8-10.8)
[2018-07-15 07:05] LABS: ANION GAP 3 mmol/L (5-15); BLOOD UREA NITROGEN 26 mg/dL (7-18); CALCIUM 9.4 MG/DL (8.5-10.1); CARBON DIOXIDE 33 MMOL/L (21-32); CHLORIDE 101 MMOL/L (98-107); CREATININE 0.7 MG/DL (0.55-1.30); POTASSIUM 4.3 MMOL/L (3.5-5.1); SODIUM 137 MMOL/L (136-145)
[2018-07-15 08:00] VITALS: BP 107/66
--- NOTE | 2018-07-15 10:58 | General Progress Note ---
Assessment/Plan Problem List: (1) Cachexia ICD Codes: R64 - Cachexia SNOMED: 669954940 (2) UTI (urinary tract infection) ICD Codes: N39.0 - Urinary tract infection, site not specified SNOMED: 23835591 (3) PNA (pneumonia) ICD Codes: J18.9 - Pneumonia, unspecified organism SNOMED: 007488833 (4) Decubitus ulcer of right hip, stage 3 ICD Codes: L89.213 - Pressure ulcer of right hip, stage 3 SNOMED: 372622209, 773518961 (5) Decubitus ulcer of left hip, stage 4 ICD Codes: L89.224 - Pressure ulcer of left hip, stage 4 SNOMED: 669216011, 888372982 (6) Do not resuscitate ICD Codes: Z66 - Do not resuscitate SNOMED: 575356244 (7) Sepsis ICD Codes: A41.9 - Sepsis, unspecified organism SNOMED: 59590541 (8) Fever ICD Codes: R50.9 - Fever, unspecified SNOMED: 127907434 Status: progressing Assessment/Plan suction prn still somewhat congested afebrile r/o pna abx per id mutiple decubs Subjective ROS Limited/Unobtainable: Yes Allergies: Coded Allergies: CEFTRIAXONE (Verified Allergy, Unknown, 04/04/18) Objective Last 24 Hour Vital Signs Date Time Temp Pulse Resp B/P (MAP) Pulse Ox O2 Delivery O2 Flow Rate FiO2 07/15/18 08:00 98.1 97 20 107/66 (80) 98 07/15/18 07:20 95 22 99 Nasal Cannula 2.0 28 07/15/18 07:06 99 Nasal Cannula 2.0 28 07/15/18 07:06 91 21 100 Nasal Cannula 2.0 28 07/15/18 07:06 Nasal Cannula 2.0 28 07/15/18 04:00 97.9 94 20 115/68 (84) 99 07/15/18 03:24 100 07/15/18 01:27 98 20 99 Nasal Cannula 2.0 28 07/15/18 01:14 98 20 99 Nasal Cannula 2.0 28 07/15/18 00:00 98.4 95 20 93/51 (65) 99 07/14/18 23:26 104 07/14/18 21:00 Nasal Cannula 2.0 07/14/18 20:46 92 20 99 Nasal Cannula 2.0 28 07/14/18 20:36 99 Nasal Cannula 2.0 28 07/14/18 20:36 Nasal Cannula 2.0 28 07/14/18 20:35 99 20 100 Nasal Cannula 2.0 28 07/14/18 20:00 98.9 104 20 105/59 (74) 99 07/14/18 19:00 101 07/14/18 16:00 98.5 98 16 107/58 (74) 100 07/14/18 16:00 98 07/14/18 14:50 95 20 99 Nasal Cannula 2.0 28 07/14/18 14:34 91 20 99 Nasal Cannula 2.0 28 07/14/18 12:00 89 07/14/18 12:00 97.9 80 18 111/66 (81) 100 Intake and Output 07/14/18 07/15/18 19:00 07:00 Intake Total 942.5 ml 770.0 ml Output Total 450 ml 600 ml Balance 492.5 ml 170.0 ml Intake Free Water 150 ml 110 ml IV Total 192.5 ml 110.0 ml Tube Feeding 600 ml 550 ml Output Urine Total 450 ml 600 ml # Bowel Movements 2 Laboratory Tests 07/15/18 06:00: White Blood Count 11.2H, Red Blood Count 3.26L, Hemoglobin 8.7L, Hematocrit 27.7L, Mean Corpuscular Volume 85, Mean Corpuscular Hemoglobin 26.7L, Mean Corpuscular Hemoglobin Concent 31.5L, Red Cell Distribution Width 16.9H, Platelet Count 528H, Mean Platelet Volume 5.8L, Neutrophils (%) (Auto) 74.3, Lymphocytes (%) (Auto) 12.2L, Monocytes (%) (Auto) 4.3, Eosinophils (%) (Auto) 8.3H, Basophils (%) (Auto) 1.0, Sodium Level 137, Potassium Level 4.3, Chloride Level 101, Carbon Dioxide Level 33H, Anion Gap 3L, Blood Urea Nitrogen 26H, Creatinine 0.7, Estimat Glomerular Filtration Rate > 60, Glucose Level 138H, Calcium Level 9.4 Height (Feet): 5 Height (Inches): 3.00 Weight (Pounds): 112 Cardiovascular: normal rate Respiratory/Chest: lungs clear Abdomen: soft Hadadz,Ali MD Jul 15, 2018 10:58
[2018-07-15] MEDS: Ascorbic Acid 500mg tab GT SCH ×2 (11:03→18:33)
[2018-07-15] MEDS: Multivitamin w/Minerals tab ORAL SCH (11:03)
[2018-07-15] MEDS: Zinc Sulfate 220mg cap ORAL SCH (11:03)
[2018-07-15] MEDS: Aspirin Baby 81mg GT SCH (11:04)
[2018-07-15] MEDS: Levemir Flexpen SUBQ SCH ×2 (11:15→18:38)
[2018-07-15] MEDS: Heparin 5000 units/ml inj SUBQ SCH ×2 (11:16→21:39)
--- NOTE | 2018-07-15 11:43 | Infectious Diseases Prog Note ---
Assessment/Plan Assessment/Plan A; Sepsis Pneumonia Pressure ulcer infection with ESBL organisms Dementia Anemia P: Continue Zosyn & Minocycline Subjective ROS Limited/Unobtainable: Yes Constitutional: Reports: no symptoms Allergies: Coded Allergies: CEFTRIAXONE (Verified Allergy, Unknown, 04/04/18) Objective Vital Signs Last 24 Hour Vital Signs Date Time Temp Pulse Resp B/P (MAP) Pulse Ox O2 Delivery O2 Flow Rate FiO2 07/15/18 11:02 97 107/66 07/15/18 08:00 98.1 97 20 107/66 (80) 98 07/15/18 07:20 95 22 99 Nasal Cannula 2.0 28 07/15/18 07:06 99 Nasal Cannula 2.0 28 07/15/18 07:06 91 21 100 Nasal Cannula 2.0 28 07/15/18 07:06 Nasal Cannula 2.0 28 07/15/18 04:00 97.9 94 20 115/68 (84) 99 07/15/18 03:24 100 07/15/18 01:27 98 20 99 Nasal Cannula 2.0 28 07/15/18 01:14 98 20 99 Nasal Cannula 2.0 28 07/15/18 00:00 98.4 95 20 93/51 (65) 99 07/14/18 23:26 104 07/14/18 21:00 Nasal Cannula 2.0 07/14/18 20:46 92 20 99 Nasal Cannula 2.0 28 07/14/18 20:36 99 Nasal Cannula 2.0 28 07/14/18 20:36 Nasal Cannula 2.0 28 07/14/18 20:35 99 20 100 Nasal Cannula 2.0 28 07/14/18 20:00 98.9 104 20 105/59 (74) 99 07/14/18 19:00 101 07/14/18 16:00 98.5 98 16 107/58 (74) 100 07/14/18 16:00 98 07/14/18 14:50 95 20 99 Nasal Cannula 2.0 28 07/14/18 14:34 91 20 99 Nasal Cannula 2.0 28 07/14/18 12:00 89 07/14/18 12:00 97.9 80 18 111/66 (81) 100 Height (Feet): 5 Height (Inches): 3.00 Weight (Pounds): 112 General Appearance: no acute distress HEENT: mucous membranes moist Respiratory/Chest: lungs clear Cardiovascular: normal rate Abdomen: soft, non tender, other - GT feeding Extremities: no edema Skin: ulcers Neurologic/Psychiatric: aphasia Laboratory Tests Test 07/15/18 06:00 White Blood Count 11.2 K/UL (4.8-10.8) H Red Blood Count 3.26 M/UL (4.70-6.10) L Hemoglobin 8.7 G/DL (14.2-18.0) L Hematocrit 27.7 % (42.0-52.0) L Mean Corpuscular Volume 85 FL (80-99) Mean Corpuscular Hemoglobin 26.7 PG (27.0-31.0) L Mean Corpuscular Hemoglobin Concent 31.5 G/DL (32.0-36.0) L Red Cell Distribution Width 16.9 % (11.6-14.8) H Platelet Count 528 K/UL (150-450) H Mean Platelet Volume 5.8 FL (6.5-10.1) L Neutrophils (%) (Auto) 74.3 % (45.0-75.0) Lymphocytes (%) (Auto) 12.2 % (20.0-45.0) L Monocytes (%) (Auto) 4.3 % (1.0-10.0) Eosinophils (%) (Auto) 8.3 % (0.0-3.0) H Basophils (%) (Auto) 1.0 % (0.0-2.0) Sodium Level 137 MMOL/L (136-145) Potassium Level 4.3 MMOL/L (3.5-5.1) Chloride Level 101 MMOL/L (98-107) Carbon Dioxide Level 33 MMOL/L (21-32) H Anion Gap 3 mmol/L (5-15) L Blood Urea Nitrogen 26 mg/dL (7-18) H Creatinine 0.7 MG/DL (0.55-1.30) Estimat Glomerular Filtration Rate > 60 mL/min (>60) Glucose Level 138 MG/DL (74-106) H Calcium Level 9.4 MG/DL (8.5-10.1) Current Medications Medications (Trade) Dose Ordered Sig/Briseida Route PRN Reason Start Time Stop Time Status Last Admin Dose Admin Acetaminophen (Tylenol) 650 mg Q4H PRN GT wound care 07/10/18 02:00 08/09/18 01:59 07/10/18 17:14 Albuterol/ Ipratropium (Albuterol/ Ipratropium) 3 ml Q6HRT HHN 07/10/18 19:00 07/15/18 18:59 07/15/18 07:05 Amlodipine Besylate (Norvasc) 10 mg DAILY GT 07/11/18 09:00 08/09/18 08:59 07/15/18 11:02 Ascorbic Acid (Vitamin C) 500 mg BID GT 07/10/18 09:00 08/09/18 08:59 07/15/18 11:03 Aspirin (ASA) 81 mg DAILY GT 07/10/18 10:29 08/09/18 10:28 07/15/18 11:04 Dextrose (Dextrose 50%) 25 ml Q30M PRN IV Hypoglycemia 07/10/18 01:30 08/09/18 01:29 Dextrose (Dextrose 50%) 50 ml Q30M PRN IV Hypoglycemia 07/10/18 01:30 08/09/18 01:29 Donepezil HCl (Aricept) 10 mg BEDTIME GT 07/10/18 21:00 08/09/18 20:59 07/14/18 20:56 Finasteride (Proscar) 5 mg DAILY ORAL 07/10/18 09:00 08/09/18 08:59 07/15/18 11:04 Heparin Sodium (Porcine) (Heparin 5000 units/ml) 5,000 units EVERY 12 HOURS SUBQ 07/10/18 21:00 08/09/18 20:59 07/15/18 11:16 Insulin Aspart (NovoLOG) Q6H SUBQ 07/14/18 06:00 08/13/18 05:59 07/15/18 06:13 Insulin Detemir (Levemir) 6 units BID SUBQ 07/10/18 09:00 08/09/18 08:59 07/15/18 11:15 Loratadine (Claritin 10mg) 10 mg DAILY ORAL 07/10/18 09:00 08/09/18 08:59 07/15/18 11:03 Metformin HCl (Glucophage) 850 mg DAILY GT 07/10/18 09:00 08/09/18 08:59 07/15/18 11:04 Minocycline HCl (Minocin) 100 mg Q12HR@0700,1900 ORAL 07/10/18 07:00 07/17/18 06:59 07/15/18 06:13 Multivitamins Therapeutic (Therapeutic Multivitamin) 1 ea DAILY ORAL 07/10/18 09:00 08/09/18 08:59 07/15/18 11:03 Piperacillin Sod/ Tazobactam Sod 3.375 gm/Dextrose 110 ml @ 27.5 mls/hr EVERY 8 HOURS IVPB 07/10/18 14:00 07/19/18 13:59 07/15/18 06:13 Sitagliptin Phosphate (Januvia) 100 mg DAILY ORAL 07/10/18 09:00 08/09/18 08:59 07/15/18 11:04 Zinc Sulfate (Zinc Sulfate) 220 mg DAILY ORAL 07/10/18 09:00 08/09/18 08:59 07/15/18 11:03 Herson Palmer MD Jul 15, 2018 11:42
[2018-07-15 12:00] VITALS: BP 108/63
--- NOTE | 2018-07-15 12:54 | General Progress Note ---
Assessment/Plan Problem List: (1) Dementia ICD Codes: F03.90 - Unspecified dementia without behavioral disturbance SNOMED: 33816502 Status: stable Assessment/Plan Aricept Ativan prn the pt lacks capacity to make decisions. Subjective Date patient seen: Jul 15, 2018 Neurologic/Psychiatric: Reports: anxiety, depressed, emotional problems Allergies: Coded Allergies: CEFTRIAXONE (Verified Allergy, Unknown, 04/04/18) Objective Last 24 Hour Vital Signs Date Time Temp Pulse Resp B/P (MAP) Pulse Ox O2 Delivery O2 Flow Rate FiO2 07/15/18 11:02 97 107/66 07/15/18 08:00 98.1 97 20 107/66 (80) 98 07/15/18 07:20 95 22 99 Nasal Cannula 2.0 28 07/15/18 07:06 99 Nasal Cannula 2.0 28 07/15/18 07:06 91 21 100 Nasal Cannula 2.0 28 07/15/18 07:06 Nasal Cannula 2.0 28 07/15/18 04:00 97.9 94 20 115/68 (84) 99 07/15/18 03:24 100 07/15/18 01:27 98 20 99 Nasal Cannula 2.0 28 07/15/18 01:14 98 20 99 Nasal Cannula 2.0 28 07/15/18 00:00 98.4 95 20 93/51 (65) 99 07/14/18 23:26 104 07/14/18 21:00 Nasal Cannula 2.0 07/14/18 20:46 92 20 99 Nasal Cannula 2.0 28 07/14/18 20:36 99 Nasal Cannula 2.0 28 07/14/18 20:36 Nasal Cannula 2.0 28 07/14/18 20:35 99 20 100 Nasal Cannula 2.0 28 07/14/18 20:00 98.9 104 20 105/59 (74) 99 07/14/18 19:00 101 07/14/18 16:00 98.5 98 16 107/58 (74) 100 07/14/18 16:00 98 07/14/18 14:50 95 20 99 Nasal Cannula 2.0 28 07/14/18 14:34 91 20 99 Nasal Cannula 2.0 28 Intake and Output 07/14/18 07/15/18 19:00 07:00 Intake Total 942.5 ml 770.0 ml Output Total 450 ml 600 ml Balance 492.5 ml 170.0 ml Intake Free Water 150 ml 110 ml IV Total 192.5 ml 110.0 ml Tube Feeding 600 ml 550 ml Output Urine Total 450 ml 600 ml # Bowel Movements 2 Laboratory Tests 07/15/18 06:00: White Blood Count 11.2H, Red Blood Count 3.26L, Hemoglobin 8.7L, Hematocrit 27.7L, Mean Corpuscular Volume 85, Mean Corpuscular Hemoglobin 26.7L, Mean Corpuscular Hemoglobin Concent 31.5L, Red Cell Distribution Width 16.9H, Platelet Count 528H, Mean Platelet Volume 5.8L, Neutrophils (%) (Auto) 74.3, Lymphocytes (%) (Auto) 12.2L, Monocytes (%) (Auto) 4.3, Eosinophils (%) (Auto) 8.3H, Basophils (%) (Auto) 1.0, Sodium Level 137, Potassium Level 4.3, Chloride Level 101, Carbon Dioxide Level 33H, Anion Gap 3L, Blood Urea Nitrogen 26H, Creatinine 0.7, Estimat Glomerular Filtration Rate > 60, Glucose Level 138H, Calcium Level 9.4 Height (Feet): 5 Height (Inches): 3.00 Weight (Pounds): 112 General Appearance: WD/WN, no apparent distress, alert, confused Shawn Meza MD Jul 15, 2018 12:54
--- NOTE | 2018-07-15 13:55 | Nephrology Progress Note ---
Assessment/Plan Problem List: (1) UTI (urinary tract infection) (2) Cachexia (3) Proteinuria (4) Functional quadriplegia Assessment Presents with fever 1) Cachexia / Malnutrition (2) Proteinuria (3) UTI (urinary tract infection) (4) Diabetes mellitus out of control (5) Dementia Plan Pulmonary toilet Antibiotics Monitor renal parameters hold bp meds- parameters albumin bolus as needed Subjective ROS Limited/Unobtainable: No Constitutional: Reports: malaise, weakness Objective Objective Last 24 Hour Vital Signs Date Time Temp Pulse Resp B/P (MAP) Pulse Ox O2 Delivery O2 Flow Rate FiO2 07/15/18 13:34 99 21 99 Nasal Cannula 2.0 28 07/15/18 13:16 87 21 100 Nasal Cannula 2.0 28 07/15/18 11:02 97 107/66 07/15/18 08:00 98.1 97 20 107/66 (80) 98 07/15/18 07:20 95 22 99 Nasal Cannula 2.0 28 07/15/18 07:06 99 Nasal Cannula 2.0 28 07/15/18 07:06 91 21 100 Nasal Cannula 2.0 28 07/15/18 07:06 Nasal Cannula 2.0 28 07/15/18 04:00 97.9 94 20 115/68 (84) 99 07/15/18 03:24 100 07/15/18 01:27 98 20 99 Nasal Cannula 2.0 28 07/15/18 01:14 98 20 99 Nasal Cannula 2.0 28 07/15/18 00:00 98.4 95 20 93/51 (65) 99 07/14/18 23:26 104 07/14/18 21:00 Nasal Cannula 2.0 07/14/18 20:46 92 20 99 Nasal Cannula 2.0 28 07/14/18 20:36 99 Nasal Cannula 2.0 28 07/14/18 20:36 Nasal Cannula 2.0 28 07/14/18 20:35 99 20 100 Nasal Cannula 2.0 28 07/14/18 20:00 98.9 104 20 105/59 (74) 99 07/14/18 19:00 101 07/14/18 16:00 98.5 98 16 107/58 (74) 100 07/14/18 16:00 98 07/14/18 14:50 95 20 99 Nasal Cannula 2.0 28 07/14/18 14:34 91 20 99 Nasal Cannula 2.0 28 Intake and Output 07/14/18 07/15/18 19:00 07:00 Intake Total 942.5 ml 770.0 ml Output Total 450 ml 600 ml Balance 492.5 ml 170.0 ml Intake Free Water 150 ml 110 ml IV Total 192.5 ml 110.0 ml Tube Feeding 600 ml 550 ml Output Urine Total 450 ml 600 ml # Bowel Movements 2 Laboratory Tests 07/15/18 06:00: White Blood Count 11.2H, Red Blood Count 3.26L, Hemoglobin 8.7L, Hematocrit 27.7L, Mean Corpuscular Volume 85, Mean Corpuscular Hemoglobin 26.7L, Mean Corpuscular Hemoglobin Concent 31.5L, Red Cell Distribution Width 16.9H, Platelet Count 528H, Mean Platelet Volume 5.8L, Neutrophils (%) (Auto) 74.3, Lymphocytes (%) (Auto) 12.2L, Monocytes (%) (Auto) 4.3, Eosinophils (%) (Auto) 8.3H, Basophils (%) (Auto) 1.0, Sodium Level 137, Potassium Level 4.3, Chloride Level 101, Carbon Dioxide Level 33H, Anion Gap 3L, Blood Urea Nitrogen 26H, Creatinine 0.7, Estimat Glomerular Filtration Rate > 60, Glucose Level 138H, Calcium Level 9.4 Height (Feet): 5 Height (Inches): 3.00 Weight (Pounds): 112 General Appearance: no apparent distress Cardiovascular: tachycardia Respiratory/Chest: decreased breath sounds Abdomen: soft Objective no change Chava Dwyer MD Jul 15, 2018 13:55
--- NOTE | 2018-07-15 15:00 | Pulmonology Progress Note ---
Assessment/Plan Assessment/Plan ASSESSMENT: The patient is a 68-year-old male senior care resident with acute on chronic hypoxemic hypercapnic respiratory failure, bilateral infiltrates, likely recurrent healthcare-associated pneumonia, dementia, CVA, dysphagia, hypertension, sacral ulcer and CAD. PROBLEM LIST: 1. Multifocal pneumonia, healthcare-associated pneumonia. 2. senior care resident. 3. Dementia/CVA. 4. Dysphagia. 5. Hypertension, CAD. 6. Protein albumin discordance. 7. Decubiti TREATMENT PLAN: 1. Optimize pulmonary hygiene/mobilize as tolerated. 2. Titrate down FiO2 to keep saturations greater than 90%. 3. P.r.n. BiPAP. 4. Continue antibiotics (Zosyn & Darrel) per ID, follow up cultures. 5. [id number]-lpovb and p.r.n. bronchodilators. 6. Aspiration precautions, cautious tube feeds. 7. Monitor volumes and renal function. 8. Heparin subcutaneous for DVT prophylaxis. 9. DNR/DNI, continue discuss goals of care. Subjective Allergies: Coded Allergies: CEFTRIAXONE (Verified Allergy, Unknown, 04/04/18) Subjective AFVSS, O2 needs stable, monse TFs, no distress, no cough, no FC Objective Last 24 Hour Vital Signs Date Time Temp Pulse Resp B/P (MAP) Pulse Ox O2 Delivery O2 Flow Rate FiO2 07/15/18 13:34 99 21 99 Nasal Cannula 2.0 28 07/15/18 13:16 87 21 100 Nasal Cannula 2.0 28 07/15/18 12:00 97.8 85 20 108/63 (78) 98 07/15/18 11:02 97 107/66 07/15/18 08:00 98.1 97 20 107/66 (80) 98 07/15/18 07:20 95 22 99 Nasal Cannula 2.0 28 07/15/18 07:06 99 Nasal Cannula 2.0 28 07/15/18 07:06 91 21 100 Nasal Cannula 2.0 28 07/15/18 07:06 Nasal Cannula 2.0 28 07/15/18 04:00 97.9 94 20 115/68 (84) 99 07/15/18 03:24 100 07/15/18 01:27 98 20 99 Nasal Cannula 2.0 28 07/15/18 01:14 98 20 99 Nasal Cannula 2.0 28 07/15/18 00:00 98.4 95 20 93/51 (65) 99 07/14/18 23:26 104 07/14/18 21:00 Nasal Cannula 2.0 07/14/18 20:46 92 20 99 Nasal Cannula 2.0 28 07/14/18 20:36 99 Nasal Cannula 2.0 28 07/14/18 20:36 Nasal Cannula 2.0 28 07/14/18 20:35 99 20 100 Nasal Cannula 2.0 28 07/14/18 20:00 98.9 104 20 105/59 (74) 99 07/14/18 19:00 101 07/14/18 16:00 98.5 98 16 107/58 (74) 100 07/14/18 16:00 98 Intake and Output 07/14/18 07/15/18 19:00 07:00 Intake Total 942.5 ml 770.0 ml Output Total 450 ml 600 ml Balance 492.5 ml 170.0 ml Intake Free Water 150 ml 110 ml IV Total 192.5 ml 110.0 ml Tube Feeding 600 ml 550 ml Output Urine Total 450 ml 600 ml # Bowel Movements 2 General Appearance: WD/WN, no acute distress HEENT: normocephalic, atraumatic, anicteric, mucous membranes moist Respiratory/Chest: chest wall non-tender, lungs clear, normal breath sounds, no respiratory distress, no accessory muscle use Cardiovascular: normal peripheral pulses, normal rate, regular rhythm Abdomen: normal bowel sounds, soft, non tender, no organomegaly, non distended , no mass, other - GT Extremities: no cyanosis, no clubbing, no edema Laboratory Tests 07/15/18 06:00: White Blood Count 11.2H, Red Blood Count 3.26L, Hemoglobin 8.7L, Hematocrit 27.7L, Mean Corpuscular Volume 85, Mean Corpuscular Hemoglobin 26.7L, Mean Corpuscular Hemoglobin Concent 31.5L, Red Cell Distribution Width 16.9H, Platelet Count 528H, Mean Platelet Volume 5.8L, Neutrophils (%) (Auto) 74.3, Lymphocytes (%) (Auto) 12.2L, Monocytes (%) (Auto) 4.3, Eosinophils (%) (Auto) 8.3H, Basophils (%) (Auto) 1.0, Sodium Level 137, Potassium Level 4.3, Chloride Level 101, Carbon Dioxide Level 33H, Anion Gap 3L, Blood Urea Nitrogen 26H, Creatinine 0.7, Estimat Glomerular Filtration Rate > 60, Glucose Level 138H, Calcium Level 9.4 Current Medications Medications (Trade) Dose Ordered Sig/Briseida Route PRN Reason Start Time Stop Time Status Last Admin Dose Admin Acetaminophen (Tylenol) 650 mg Q4H PRN GT wound care 07/10/18 02:00 08/09/18 01:59 07/10/18 17:14 Albuterol/ Ipratropium (Albuterol/ Ipratropium) 3 ml Q6HRT HHN 07/10/18 19:00 07/15/18 18:59 07/15/18 13:15 Amlodipine Besylate (Norvasc) 10 mg DAILY GT 07/11/18 09:00 08/09/18 08:59 07/15/18 11:02 Ascorbic Acid (Vitamin C) 500 mg BID GT 07/10/18 09:00 08/09/18 08:59 07/15/18 11:03 Aspirin (ASA) 81 mg DAILY GT 07/10/18 10:29 08/09/18 10:28 07/15/18 11:04 Dextrose (Dextrose 50%) 25 ml Q30M PRN IV Hypoglycemia 07/10/18 01:30 08/09/18 01:29 Dextrose (Dextrose 50%) 50 ml Q30M PRN IV Hypoglycemia 07/10/18 01:30 08/09/18 01:29 Donepezil HCl (Aricept) 10 mg BEDTIME GT 07/10/18 21:00 08/09/18 20:59 07/14/18 20:56 Finasteride (Proscar) 5 mg DAILY ORAL 07/10/18 09:00 08/09/18 08:59 07/15/18 11:04 Heparin Sodium (Porcine) (Heparin 5000 units/ml) 5,000 units EVERY 12 HOURS SUBQ 07/10/18 21:00 08/09/18 20:59 07/15/18 11:16 Insulin Aspart (NovoLOG) Q6H SUBQ 07/14/18 06:00 08/13/18 05:59 07/15/18 12:30 Insulin Detemir (Levemir) 6 units BID SUBQ 07/10/18 09:00 08/09/18 08:59 07/15/18 11:15 Loratadine (Claritin 10mg) 10 mg DAILY ORAL 07/10/18 09:00 08/09/18 08:59 07/15/18 11:03 Metformin HCl (Glucophage) 850 mg DAILY GT 07/10/18 09:00 08/09/18 08:59 07/15/18 11:04 Minocycline HCl (Minocin) 100 mg Q12HR@0700,1900 ORAL 07/10/18 07:00 07/17/18 06:59 07/15/18 06:13 Multivitamins Therapeutic (Therapeutic Multivitamin) 1 ea DAILY ORAL 07/10/18 09:00 08/09/18 08:59 07/15/18 11:03 Piperacillin Sod/ Tazobactam Sod 3.375 gm/Dextrose 110 ml @ 27.5 mls/hr EVERY 8 HOURS IVPB 07/10/18 14:00 07/19/18 13:59 07/15/18 14:35 Sitagliptin Phosphate (Januvia) 100 mg DAILY ORAL 07/10/18 09:00 08/09/18 08:59 07/15/18 11:04 Zinc Sulfate (Zinc Sulfate) 220 mg DAILY ORAL 07/10/18 09:00 08/09/18 08:59 07/15/18 11:03 Yrn Buckley MD Jul 15, 2018 15:00
[2018-07-15 16:00] VITALS: BP 112/61
[2018-07-15 20:00] VITALS: BP 120/68
[2018-07-15] MEDS: Donepezil 10mg tab GT SCH (21:38)
[2018-07-15] MEDS ORDERED: Ipratropium 0.02% Inh Soln 2.5ml UD HHN PRN (22:45)
[2018-07-16] VITALS (7 sets, daily range): BP systolic 108–123; BP diastolic 60–71
[2018-07-16] MEDS: Albuterol/Ipratropium 3ml neb HHN SCH ×4 (01:41→22:06)
[2018-07-16] MEDS: Piperacillin/Tazobactam 3.375 GM in D5W 110 ML IVPB SCH ×4 (05:04→21:15)
[2018-07-16] MEDS: NovoLOG Insulin Flexpen SUBQ SCH ×3 (05:06→18:01)
[2018-07-16] MEDS: Minocycline HCl 50mg cap ORAL SCH (06:00)
--- NOTE | 2018-07-16 06:25 | General Progress Note ---
Assessment/Plan Assessment/Plan #. Anemia due to underlying chronic disease. ESR was 115 on last admission. Closely monitor for improvement. The patient has ongoing anemia, likely related to underlying decubitus ulceration. In addition to being chronically ill, bedbound, and hemoglobin, ferritin is >1000 --> transfuse if hgb <7 --> has been given 1 dose of epogen for more rapid recovery --> no hemolysis has been noted --> trend cbc daily --> new panel ordered. Ferritin at 345 --> have discontinued ferrous sulfate #. Thrombocytosis is likely related to underlying anemia, infection, fevers --> Plt remains elevated --> trend platelet count --> continue on asa 81mg low dose #. Hyperproteinemia. Given albumin dissociation have ordered for spep and upep --> spep and upep have been ordered to evaluate for spike in m-spike, both are negative for m-spike --> continue to monitor in the future --> appreciate pulm recs #. Hospital-acquired pneumonia on prior admission --> repeat cxr shows bilateral interstitial and airspace disease --> s/p abx broad spectrum #. Azotemia. Given fluids as needed. BUN of 33. --> s/p ivf --> per renal management #. Stage IV ulcerations on the left and right side. Stage IV ulcerations --> Dr. Clark aware, is following --> Wound cx is positive on abx --> cream barriers calvion being applied, therahoney as well #. Dysphagia, status post PEG tube. #. Incontinence with a Beltran catheter in place. --> Beltran catheter is in place. --> uro recs as needed on last admission #. DPOA wants comfort care/conservative care GREATLY APPRECIATE CONSULTATION Subjective Constitutional: Denies: no symptoms, chills, diaphoresis, fever, malaise, weakness, other HEENT: Denies: no symptoms, eye pain, blurred vision, tearing, double vision, ear pain, ear discharge, nose pain, nose congestion, throat pain, throat swelling, mouth pain, mouth swelling, other Cardiovascular: Denies: no symptoms, chest pain, edema, irregular heart rate, lightheadedness, palpitations, syncope, other Respiratory: Denies: no symptoms, cough, orthopnea, shortness of breath, SOB with excertion, SOB at rest, sputum, stridor, wheezing, other Gastrointestinal/Abdominal: Denies: no symptoms, abdomen distended, abdominal pain, black stools, tarry stools, blood in stool, constipated, diarrhea, difficulty swallowing, nausea, poor appetite, poor fluid intake, rectal bleeding , vomiting, other Genitourinary: Denies: no symptoms, burning, discharge, frequency, flank pain, hematuria, incontinence, pain, urgency, other Endocrine: Denies: no symptoms, excessive sweating, flushing, intolerance to cold, intolerance to heat, increased hunger, increased thirst, increased urine, unexplained weight gain, unexplained weight loss, other Hematologic/Lymphatic: Denies: no symptoms, anemia, easy bleeding, easy bruising, other Allergies: Coded Allergies: CEFTRIAXONE (Verified Allergy, Unknown, 04/04/18) Subjective Pt remains nonverbal and bedridden. No acute events.VS stable. Calvion cream being applied to wound borders. getting breathing treatments prn basis Objective Last 24 Hour Vital Signs Date Time Temp Pulse Resp B/P (MAP) Pulse Ox O2 Delivery O2 Flow Rate FiO2 07/16/18 04:00 98.5 84 17 111/63 (79) 100 07/16/18 04:00 83 07/16/18 01:46 95 20 100 Nasal Cannula 2.0 07/16/18 01:40 85 20 100 Nasal Cannula 2.0 07/16/18 00:00 78 07/16/18 00:00 98.4 96 19 116/68 (84) 100 07/15/18 20:17 95 20 100 Nasal Cannula 2.0 07/15/18 20:15 95 20 100 Nasal Cannula 2.0 28 07/15/18 20:14 100 Nasal Cannula 2.0 28 07/15/18 20:13 Nasal Cannula 2.0 28 07/15/18 20:00 98.1 100 21 120/68 (85) 97 07/15/18 20:00 94 07/15/18 20:00 Nasal Cannula 2.0 07/15/18 16:00 97 07/15/18 16:00 97.9 99 20 112/61 (78) 95 07/15/18 13:34 99 21 99 Nasal Cannula 2.0 28 07/15/18 13:16 87 21 100 Nasal Cannula 2.0 28 07/15/18 12:00 84 07/15/18 12:00 97.8 85 20 108/63 (78) 98 07/15/18 11:02 97 107/66 07/15/18 09:00 Nasal Cannula 2.0 07/15/18 08:00 98.1 97 20 107/66 (80) 98 07/15/18 08:00 95 07/15/18 07:20 95 22 99 Nasal Cannula 2.0 28 07/15/18 07:06 99 Nasal Cannula 2.0 28 07/15/18 07:06 91 21 100 Nasal Cannula 2.0 28 07/15/18 07:06 Nasal Cannula 2.0 28 Intake and Output 07/15/18 07/16/18 18:59 06:59 Intake Total 870.0 ml 967.5 ml Output Total 400 ml 600 ml Balance 470.0 ml 367.5 ml Intake Free Water 330 ml IV Total 220.0 ml 137.5 ml Tube Feeding 650 ml 500 ml Output Urine Total 400 ml 600 ml # Bowel Movements 1 2 Height (Feet): 5 Height (Inches): 3.00 Weight (Pounds): 112 Objective PE: VITAL SIGNS: Reviewed. GENERAL: Not in acute distress. The patient is contracted, lying in bed, bedbound, ill and lethargic. PULMONARY: Decreased breath sounds, 1 to 2+ crackles in bilateral lungs. Nasal cannula in place. CARDIOVASCULAR: Regular rate and crackles noted overlying the heart sounds. ABDOMEN: Soft, nontender, nondistended. + G-tube. EXTREMITIES: No cce Nikolai Richards MD Jul 16, 2018 06:25
[2018-07-16] MEDS: Multivitamin w/Minerals tab ORAL SCH (09:28)
[2018-07-16] MEDS: Zinc Sulfate 220mg cap ORAL SCH (09:28)
[2018-07-16] MEDS: Aspirin Baby 81mg GT SCH (09:28)
[2018-07-16] MEDS: Ascorbic Acid 500mg tab GT SCH ×2 (09:28→18:09)
[2018-07-16] MEDS: Heparin 5000 units/ml inj SUBQ SCH ×2 (09:42→21:14)
[2018-07-16] MEDS: Levemir Flexpen SUBQ SCH ×2 (09:44→18:00)
--- NOTE | 2018-07-16 09:54 | Infectious Diseases Prog Note ---
Assessment/Plan Assessment/Plan A; Sepsis Pneumonia Pressure ulcer infection with ESBL organisms Dementia Anemia P: Continue Zosyn Continue Minocycline X 1 day Subjective ROS Limited/Unobtainable: Yes Respiratory: Reports: productive cough Allergies: Coded Allergies: CEFTRIAXONE (Verified Allergy, Unknown, 04/04/18) Objective Vital Signs Last 24 Hour Vital Signs Date Time Temp Pulse Resp B/P (MAP) Pulse Ox O2 Delivery O2 Flow Rate FiO2 07/16/18 09:28 67 123/64 07/16/18 08:00 98.2 67 18 123/64 (83) 98 07/16/18 07:21 Nasal Cannula 2.0 28 07/16/18 07:21 99 Nasal Cannula 2.0 28 07/16/18 07:21 98 22 100 Nasal Cannula 2.0 28 07/16/18 07:14 87 18 100 Nasal Cannula 2.0 28 07/16/18 04:00 98.5 84 17 111/63 (79) 100 07/16/18 04:00 83 07/16/18 01:46 95 20 100 Nasal Cannula 2.0 28 07/16/18 01:40 85 20 100 Nasal Cannula 2.0 28 07/16/18 00:00 78 07/16/18 00:00 98.4 96 19 116/68 (84) 100 07/15/18 20:17 95 20 100 Nasal Cannula 2.0 28 07/15/18 20:15 95 20 100 Nasal Cannula 2.0 28 07/15/18 20:14 100 Nasal Cannula 2.0 28 07/15/18 20:13 Nasal Cannula 2.0 28 07/15/18 20:00 98.1 100 21 120/68 (85) 97 07/15/18 20:00 94 07/15/18 20:00 Nasal Cannula 2.0 07/15/18 16:00 97 07/15/18 16:00 97.9 99 20 112/61 (78) 95 07/15/18 13:34 99 21 99 Nasal Cannula 2.0 28 07/15/18 13:16 87 21 100 Nasal Cannula 2.0 28 07/15/18 12:00 84 07/15/18 12:00 97.8 85 20 108/63 (78) 98 07/15/18 11:02 97 107/66 Height (Feet): 5 Height (Inches): 3.00 Weight (Pounds): 112 General Appearance: no acute distress HEENT: mucous membranes moist Respiratory/Chest: lungs clear Cardiovascular: normal rate Abdomen: soft, non tender, other - GT feeding Extremities: no edema Skin: ulcers Neurologic/Psychiatric: aphasia Current Medications Medications (Trade) Dose Ordered Sig/Briseida Route PRN Reason Start Time Stop Time Status Last Admin Dose Admin Acetaminophen (Tylenol) 650 mg Q4H PRN GT wound care 07/10/18 02:00 08/09/18 01:59 07/10/18 17:14 Albuterol/ Ipratropium (Albuterol/ Ipratropium) 3 ml Q6HRT HHN 07/16/18 01:00 07/21/18 00:59 07/16/18 07:20 Amlodipine Besylate (Norvasc) 10 mg DAILY GT 07/11/18 09:00 08/09/18 08:59 07/16/18 09:28 Ascorbic Acid (Vitamin C) 500 mg BID GT 07/10/18 09:00 08/09/18 08:59 07/16/18 09:28 Aspirin (ASA) 81 mg DAILY GT 07/10/18 10:29 08/09/18 10:28 07/16/18 09:28 Dextrose (Dextrose 50%) 25 ml Q30M PRN IV Hypoglycemia 07/10/18 01:30 08/09/18 01:29 Dextrose (Dextrose 50%) 50 ml Q30M PRN IV Hypoglycemia 07/10/18 01:30 08/09/18 01:29 Donepezil HCl (Aricept) 10 mg BEDTIME GT 07/10/18 21:00 08/09/18 20:59 07/15/18 21:38 Finasteride (Proscar) 5 mg DAILY ORAL 07/10/18 09:00 08/09/18 08:59 07/16/18 09:28 Heparin Sodium (Porcine) (Heparin 5000 units/ml) 5,000 units EVERY 12 HOURS SUBQ 07/10/18 21:00 08/09/18 20:59 07/16/18 09:42 Insulin Aspart (NovoLOG) Q6H SUBQ 07/14/18 06:00 08/13/18 05:59 07/16/18 05:06 Insulin Detemir (Levemir) 6 units BID SUBQ 07/10/18 09:00 08/09/18 08:59 07/16/18 09:44 Ipratropium [place] (Atrovent) 500 mcg Q4H PRN HHN Shortness of Breath 07/15/18 22:45 07/20/18 22:44 Loratadine (Claritin 10mg) 10 mg DAILY ORAL 07/10/18 09:00 08/09/18 08:59 07/16/18 09:27 Metformin HCl (Glucophage) 850 mg DAILY GT 07/10/18 09:00 08/09/18 08:59 07/16/18 09:28 Minocycline HCl (Minocin) 100 mg Q12HR@0700,1900 ORAL 07/10/18 07:00 07/17/18 06:59 07/16/18 06:00 Multivitamins Therapeutic (Therapeutic Multivitamin) 1 ea DAILY ORAL 07/10/18 09:00 08/09/18 08:59 07/16/18 09:28 Piperacillin Sod/ Tazobactam Sod 3.375 gm/Dextrose 110 ml @ 27.5 mls/hr EVERY 8 HOURS IVPB 07/10/18 14:00 07/19/18 13:59 07/16/18 05:04 Sitagliptin Phosphate (Januvia) 100 mg DAILY ORAL 07/10/18 09:00 08/09/18 08:59 07/16/18 09:28 Zinc Sulfate (Zinc Sulfate) 220 mg DAILY ORAL 07/10/18 09:00 08/09/18 08:59 07/16/18 09:28 Herson Palmer MD Jul 16, 2018 09:54
--- NOTE | 2018-07-16 11:31 | General Progress Note ---
Assessment/Plan Problem List: (1) Cachexia ICD Codes: R64 - Cachexia SNOMED: 910438937 (2) UTI (urinary tract infection) ICD Codes: N39.0 - Urinary tract infection, site not specified SNOMED: 64540532 (3) PNA (pneumonia) ICD Codes: J18.9 - Pneumonia, unspecified organism SNOMED: 461644535 (4) Decubitus ulcer of right hip, stage 3 ICD Codes: L89.213 - Pressure ulcer of right hip, stage 3 SNOMED: 355631581, 182502430 (5) Decubitus ulcer of left hip, stage 4 ICD Codes: L89.224 - Pressure ulcer of left hip, stage 4 SNOMED: 849934723, 400137665 (6) Do not resuscitate ICD Codes: Z66 - Do not resuscitate SNOMED: 804611424 (7) Sepsis ICD Codes: A41.9 - Sepsis, unspecified organism SNOMED: 65920900 (8) Fever ICD Codes: R50.9 - Fever, unspecified SNOMED: 367578316 Status: progressing Assessment/Plan suction prn reviewed chart and labs leukocytosis pna abx per id mutiple decubs Subjective ROS Limited/Unobtainable: Yes Allergies: Coded Allergies: CEFTRIAXONE (Verified Allergy, Unknown, 04/04/18) Objective Last 24 Hour Vital Signs Date Time Temp Pulse Resp B/P (MAP) Pulse Ox O2 Delivery O2 Flow Rate FiO2 07/16/18 09:28 67 123/64 07/16/18 08:20 Nasal Cannula 2.0 07/16/18 08:00 98.2 67 18 123/64 (83) 98 07/16/18 07:40 100 07/16/18 07:21 Nasal Cannula 2.0 28 07/16/18 07:21 99 Nasal Cannula 2.0 28 07/16/18 07:21 98 22 100 Nasal Cannula 2.0 28 07/16/18 07:14 87 18 100 Nasal Cannula 2.0 28 07/16/18 04:00 98.5 84 17 111/63 (79) 100 07/16/18 04:00 83 07/16/18 01:46 95 20 100 Nasal Cannula 2.0 28 07/16/18 01:40 85 20 100 Nasal Cannula 2.0 28 07/16/18 00:00 78 07/16/18 00:00 98.4 96 19 116/68 (84) 100 07/15/18 20:17 95 20 100 Nasal Cannula 2.0 28 07/15/18 20:15 95 20 100 Nasal Cannula 2.0 28 07/15/18 20:14 100 Nasal Cannula 2.0 28 07/15/18 20:13 Nasal Cannula 2.0 28 07/15/18 20:00 98.1 100 21 120/68 (85) 97 07/15/18 20:00 94 07/15/18 20:00 Nasal Cannula 2.0 07/15/18 16:00 97 07/15/18 16:00 97.9 99 20 112/61 (78) 95 07/15/18 13:34 99 21 99 Nasal Cannula 2.0 28 07/15/18 13:16 87 21 100 Nasal Cannula 2.0 28 07/15/18 12:00 84 07/15/18 12:00 97.8 85 20 108/63 (78) 98 Intake and Output 07/15/18 07/16/18 19:00 07:00 Intake Total 820.0 ml 1017.5 ml Output Total 400 ml 600 ml Balance 420.0 ml 417.5 ml Intake Free Water 330 ml IV Total 220.0 ml 137.5 ml Tube Feeding 600 ml 550 ml Output Urine Total 400 ml 600 ml # Bowel Movements 1 2 Height (Feet): 5 Height (Inches): 3.00 Weight (Pounds): 112 General Appearance: confused Neck: supple Cardiovascular: normal rate Jamia Wu MD Jul 16, 2018 11:31
--- NOTE | 2018-07-16 13:26 | Pulmonology Progress Note ---
Assessment/Plan Assessment/Plan ASSESSMENT: The patient is a 68-year-old male retirement resident with acute on chronic hypoxemic hypercapnic respiratory failure, bilateral infiltrates, likely recurrent healthcare-associated pneumonia, dementia, CVA, dysphagia, hypertension, sacral ulcer and CAD. PROBLEM LIST: 1. Multifocal pneumonia, healthcare-associated pneumonia. 2. [facility] resident. 3. Dementia/CVA. 4. Dysphagia. 5. Hypertension, CAD. 6. Protein albumin discordance. 7. Decubiti TREATMENT PLAN: 1. Optimize pulmonary hygiene/mobilize as tolerated. 2. Titrate down FiO2 to keep saturations greater than 90%. 3. P.r.n. BiPAP. 4. Continue antibiotics (Zosyn & Darrel) per ID, follow up cultures. 5. Umavw-wgm-stgfh and p.r.n. bronchodilators. 6. Aspiration precautions, cautious tube feeds. 7. Monitor volumes and renal function. 8. Heparin subcutaneous for DVT prophylaxis. 9. DNR/DNI, continue discuss goals of care. Subjective Allergies: Coded Allergies: CEFTRIAXONE (Verified Allergy, Unknown, 04/04/18) Subjective AFVSS, O2 needs stable, monse TFs, no distress, no cough, no FC Objective Last 24 Hour Vital Signs Date Time Temp Pulse Resp B/P (MAP) Pulse Ox O2 Delivery O2 Flow Rate FiO2 07/16/18 13:15 96 20 100 Nasal Cannula 2.0 28 07/16/18 13:08 84 22 100 Nasal Cannula 2.0 28 07/16/18 12:00 99.4 99 19 122/60 (80) 98 07/16/18 11:42 99 07/16/18 09:28 67 123/64 07/16/18 08:20 Nasal Cannula 2.0 07/16/18 08:00 98.2 67 18 123/64 (83) 98 07/16/18 07:40 100 07/16/18 07:21 Nasal Cannula 2.0 28 07/16/18 07:21 99 Nasal Cannula 2.0 28 07/16/18 07:21 98 22 100 Nasal Cannula 2.0 28 07/16/18 07:14 87 18 100 Nasal Cannula 2.0 28 07/16/18 04:00 98.5 84 17 111/63 (79) 100 07/16/18 04:00 83 07/16/18 01:46 95 20 100 Nasal Cannula 2.0 28 07/16/18 01:40 85 20 100 Nasal Cannula 2.0 28 07/16/18 00:00 78 07/16/18 00:00 98.4 96 19 116/68 (84) 100 07/15/18 20:17 95 20 100 Nasal Cannula 2.0 28 07/15/18 20:15 95 20 100 Nasal Cannula 2.0 28 07/15/18 20:14 100 Nasal Cannula 2.0 28 07/15/18 20:13 Nasal Cannula 2.0 28 07/15/18 20:00 98.1 100 21 120/68 (85) 97 07/15/18 20:00 94 07/15/18 20:00 Nasal Cannula 2.0 07/15/18 16:00 97 07/15/18 16:00 97.9 99 20 112/61 (78) 95 07/15/18 13:34 99 21 99 Nasal Cannula 2.0 28 Intake and Output 07/15/18 07/16/18 19:00 07:00 Intake Total 820.0 ml 1017.5 ml Output Total 400 ml 600 ml Balance 420.0 ml 417.5 ml Intake Free Water 330 ml IV Total 220.0 ml 137.5 ml Tube Feeding 600 ml 550 ml Output Urine Total 400 ml 600 ml # Bowel Movements 1 2 General Appearance: cachetic HEENT: normocephalic, atraumatic, anicteric, mucous membranes moist Respiratory/Chest: chest wall non-tender, lungs clear, normal breath sounds, no respiratory distress Cardiovascular: normal peripheral pulses, normal rate, regular rhythm Abdomen: normal bowel sounds, soft, non tender, no organomegaly, non distended , no mass, other - GT Extremities: no cyanosis, no clubbing, no edema Current Medications Medications (Trade) Dose Ordered Sig/Briseida Route PRN Reason Start Time Stop Time Status Last Admin Dose Admin Acetaminophen (Tylenol) 650 mg Q4H PRN GT wound care 07/10/18 02:00 08/09/18 01:59 07/10/18 17:14 Albuterol/ Ipratropium (Albuterol/ Ipratropium) 3 ml Q6HRT HHN 07/16/18 01:00 07/21/18 00:59 07/16/18 13:05 Amlodipine Besylate (Norvasc) 10 mg DAILY GT 07/11/18 09:00 08/09/18 08:59 07/16/18 09:28 Ascorbic Acid (Vitamin C) 500 mg BID GT 07/10/18 09:00 08/09/18 08:59 07/16/18 09:28 Aspirin (ASA) 81 mg DAILY GT 07/10/18 10:29 08/09/18 10:28 07/16/18 09:28 Dextrose (Dextrose 50%) 25 ml Q30M PRN IV Hypoglycemia 07/10/18 01:30 08/09/18 01:29 Dextrose (Dextrose 50%) 50 ml Q30M PRN IV Hypoglycemia 07/10/18 01:30 08/09/18 01:29 Donepezil HCl (Aricept) 10 mg BEDTIME GT 07/10/18 21:00 08/09/18 20:59 07/15/18 21:38 Finasteride (Proscar) 5 mg DAILY ORAL 07/10/18 09:00 08/09/18 08:59 07/16/18 09:28 Heparin Sodium (Porcine) (Heparin 5000 units/ml) 5,000 units EVERY 12 HOURS SUBQ 07/10/18 21:00 08/09/18 20:59 07/16/18 09:42 Insulin Aspart (NovoLOG) Q6H SUBQ 07/14/18 06:00 08/13/18 05:59 07/16/18 12:14 Insulin Detemir (Levemir) 6 units BID SUBQ 07/10/18 09:00 08/09/18 08:59 07/16/18 09:44 Ipratropium [place] (Atrovent) 500 mcg Q4H PRN HHN Shortness of Breath 07/15/18 22:45 07/20/18 22:44 Loratadine (Claritin 10mg) 10 mg DAILY ORAL 07/10/18 09:00 08/09/18 08:59 07/16/18 09:27 Metformin HCl (Glucophage) 850 mg DAILY GT 07/10/18 09:00 08/09/18 08:59 07/16/18 09:28 Minocycline HCl (Minocin) 100 mg Q12HR@0700,1900 ORAL 07/10/18 07:00 07/17/18 06:59 07/16/18 06:00 Multivitamins Therapeutic (Therapeutic Multivitamin) 1 ea DAILY ORAL 07/10/18 09:00 08/09/18 08:59 07/16/18 09:28 Piperacillin Sod/ Tazobactam Sod 3.375 gm/Dextrose 110 ml @ 27.5 mls/hr EVERY 8 HOURS IVPB 07/10/18 14:00 07/19/18 13:59 07/16/18 05:04 Sitagliptin Phosphate (Januvia) 100 mg DAILY ORAL 07/10/18 09:00 08/09/18 08:59 07/16/18 09:28 Zinc Sulfate (Zinc Sulfate) 220 mg DAILY ORAL 07/10/18 09:00 08/09/18 08:59 07/16/18 09:28 Yrn Buckley MD Jul 16, 2018 13:26
--- NOTE | 2018-07-16 15:24 | General Progress Note ---
Assessment/Plan Problem List: (1) Dementia ICD Codes: F03.90 - Unspecified dementia without behavioral disturbance SNOMED: 68272683 Status: stable Assessment/Plan Aricept Ativan prn the pt lacks capacity to make decisions. Subjective Date patient seen: Jul 16, 2018 Neurologic/Psychiatric: Reports: anxiety Allergies: Coded Allergies: CEFTRIAXONE (Verified Allergy, Unknown, 04/04/18) Subjective The pt is confused. and unable to provide hx Objective Last 24 Hour Vital Signs Date Time Temp Pulse Resp B/P (MAP) Pulse Ox O2 Delivery O2 Flow Rate FiO2 07/16/18 13:15 96 20 100 Nasal Cannula 2.0 28 07/16/18 13:08 84 22 100 Nasal Cannula 2.0 28 07/16/18 12:00 99.4 99 19 122/60 (80) 98 07/16/18 11:42 99 07/16/18 09:28 67 123/64 07/16/18 08:20 Nasal Cannula 2.0 07/16/18 08:00 98.2 67 18 123/64 (83) 98 07/16/18 07:40 100 07/16/18 07:21 Nasal Cannula 2.0 28 07/16/18 07:21 99 Nasal Cannula 2.0 28 07/16/18 07:21 98 22 100 Nasal Cannula 2.0 28 07/16/18 07:14 87 18 100 Nasal Cannula 2.0 28 07/16/18 04:00 98.5 84 17 111/63 (79) 100 07/16/18 04:00 83 07/16/18 01:46 95 20 100 Nasal Cannula 2.0 07/16/18 01:40 85 20 100 Nasal Cannula 2.0 28 07/16/18 00:00 78 07/16/18 00:00 98.4 96 19 116/68 (84) 100 07/15/18 20:17 95 20 100 Nasal Cannula 2.0 28 07/15/18 20:15 95 20 100 Nasal Cannula 2.0 28 07/15/18 20:14 100 Nasal Cannula 2.0 28 07/15/18 20:13 Nasal Cannula 2.0 28 07/15/18 20:00 98.1 100 21 120/68 (85) 97 07/15/18 20:00 94 07/15/18 20:00 Nasal Cannula 2.0 07/15/18 16:00 97 07/15/18 16:00 97.9 99 20 112/61 (78) 95 Intake and Output 07/15/18 07/16/18 19:00 07:00 Intake Total 820.0 ml 1017.5 ml Output Total 400 ml 600 ml Balance 420.0 ml 417.5 ml Intake Free Water 330 ml IV Total 220.0 ml 137.5 ml Tube Feeding 600 ml 550 ml Output Urine Total 400 ml 600 ml # Bowel Movements 1 2 Height (Feet): 5 Height (Inches): 3.00 Weight (Pounds): 112 General Appearance: no apparent distress, alert, confused Shawn Meza MD Jul 16, 2018 15:24
[2018-07-16] MEDS ORDERED: Albuterol/Ipratropium 3ml neb HHN SCH (15:45)
[2018-07-16] MEDS ORDERED: Levemir Flexpen SUBQ SCH (15:45)
[2018-07-16] MEDS ORDERED: Acetaminophen 650mg/20.3ml GT PRN ×2 (15:45→18:00)
[2018-07-16] MEDS ORDERED: NovoLOG Insulin Flexpen SUBQ SCH (15:45)
[2018-07-16] MEDS ORDERED: Ascorbic Acid 500mg tab GT SCH (15:45)
[2018-07-16] MEDS ORDERED: Ipratropium 0.02% Inh Soln 2.5ml UD HHN PRN ×2 (16:00→22:45)
--- NOTE | 2018-07-16 18:18 | Nephrology Progress Note ---
Assessment/Plan Problem List: (1) UTI (urinary tract infection) (2) Cachexia (3) Proteinuria (4) Functional quadriplegia Assessment Presents with fever 1) Cachexia / Malnutrition (2) Proteinuria (3) UTI (urinary tract infection) (4) Diabetes mellitus out of control (5) Dementia Plan Pulmonary toilet Antibiotics Monitor renal parameters hold bp meds- parameters albumin bolus as needed Subjective ROS Limited/Unobtainable: No Objective Objective Last 24 Hour Vital Signs Date Time Temp Pulse Resp B/P (MAP) Pulse Ox O2 Delivery O2 Flow Rate FiO2 07/16/18 16:00 97.7 101 20 108/69 (82) 96 07/16/18 14:00 97.5 100 20 112/71 (85) 98 07/16/18 13:15 96 20 100 Nasal Cannula 2.0 28 07/16/18 13:08 84 22 100 Nasal Cannula 2.0 28 07/16/18 12:00 99.4 99 19 122/60 (80) 98 07/16/18 11:42 99 07/16/18 09:28 67 123/64 07/16/18 08:20 Nasal Cannula 2.0 07/16/18 08:00 98.2 67 18 123/64 (83) 98 07/16/18 07:40 100 07/16/18 07:21 Nasal Cannula 2.0 28 07/16/18 07:21 99 Nasal Cannula 2.0 28 07/16/18 07:21 98 22 100 Nasal Cannula 2.0 28 07/16/18 07:14 87 18 100 Nasal Cannula 2.0 28 07/16/18 04:00 98.5 84 17 111/63 (79) 100 07/16/18 04:00 83 07/16/18 01:46 95 20 100 Nasal Cannula 2.0 28 07/16/18 01:40 85 20 100 Nasal Cannula 2.0 28 07/16/18 00:00 78 07/16/18 00:00 98.4 96 19 116/68 (84) 100 07/15/18 20:17 95 20 100 Nasal Cannula 2.0 28 07/15/18 20:15 95 20 100 Nasal Cannula 2.0 28 07/15/18 20:14 100 Nasal Cannula 2.0 28 07/15/18 20:13 Nasal Cannula 2.0 28 12/4/18 20:00 98.1 100 21 120/68 (85) 97 07/15/18 20:00 94 07/15/18 20:00 Nasal Cannula 2.0 Intake and Output 07/15/18 07/16/18 19:00 07:00 Intake Total 820.0 ml 1017.5 ml Output Total 400 ml 600 ml Balance 420.0 ml 417.5 ml Intake Free Water 330 ml IV Total 220.0 ml 137.5 ml Tube Feeding 600 ml 550 ml Output Urine Total 400 ml 600 ml # Bowel Movements 1 2 Height (Feet): 5 Height (Inches): 3.00 Weight (Pounds): 112 General Appearance: no apparent distress Objective no change Chava Dwyer MD Jul 16, 2018 18:18
[2018-07-16] MEDS ORDERED: Minocycline HCl 50mg cap ORAL SCH ×2 (19:00)
[2018-07-16] MEDS ORDERED: Heparin 5000 units/ml inj SUBQ SCH (21:00)
[2018-07-16] MEDS ORDERED: Donepezil 10mg tab GT SCH (21:00)
[2018-07-16] MEDS: Donepezil 10mg tab GT SCH (21:14)
[2018-07-16] MEDS ORDERED: Piperacillin/Tazobactam 3.375 GM in D5W 110 ML IVPB SCH (22:00)
[2018-07-17] VITALS: BP 124/74
[2018-07-17] MEDS: Albuterol/Ipratropium 3ml neb HHN SCH ×4 (02:24→20:35)
[2018-07-17 04:00] VITALS: BP 111/69
[2018-07-17] MEDS: Piperacillin/Tazobactam 3.375 GM in D5W 110 ML IVPB SCH ×3 (05:39→22:32)
[2018-07-17] MEDS: NovoLOG Insulin Flexpen SUBQ SCH ×5 (05:41→23:50)
[2018-07-17 06:30] LABS: EOSINOPHILS % (AUTO) 6.4 % (0.0-3.0); HEMATOCRIT 28.6 % (42.0-52.0); HEMOGLOBIN 8.9 G/DL (14.2-18.0); LYMPHOCYTES % (AUTO) 11.8 % (20.0-45.0); MEAN CORPUSCULAR VOLUME 86 FL (80-99); MONOCYTES % (AUTO) 4.8 % (1.0-10.0); NEUTROPHILS % (AUTO) 76.1 % (45.0-75.0); PLATELET COUNT 569 K/UL (150-450); RED BLOOD COUNT 3.34 M/UL (4.70-6.10); RED CELL DISTRIBUTION WIDTH 16.9 % (11.6-14.8); WHITE BLOOD COUNT 11.4 K/UL (4.8-10.8)
[2018-07-17 06:31] LABS: ANION GAP 6 mmol/L (5-15); BLOOD UREA NITROGEN 30 mg/dL (7-18); CALCIUM 9.5 MG/DL (8.5-10.1); CARBON DIOXIDE 33 MMOL/L (21-32); CHLORIDE 101 MMOL/L (98-107); CREATININE 0.7 MG/DL (0.55-1.30); SODIUM 140 MMOL/L (136-145)
[2018-07-17 08:00] VITALS: BP 109/68
[2018-07-17] MEDS: Ascorbic Acid 500mg tab GT SCH ×2 (08:42→17:25)
[2018-07-17] MEDS: Zinc Sulfate 220mg cap GT SCH (08:42)
[2018-07-17] MEDS: Multivitamin w/Minerals tab ORAL SCH (08:43)
[2018-07-17] MEDS: Aspirin Baby 81mg GT SCH (08:43)
[2018-07-17] MEDS: Levemir Flexpen SUBQ SCH ×2 (08:48→17:28)
[2018-07-17] MEDS ORDERED: Multivitamin w/Minerals tab ORAL SCH (09:00)
[2018-07-17] MEDS ORDERED: Zinc Sulfate 220mg cap ORAL SCH (09:00)
[2018-07-17] MEDS: Heparin 5000 units/ml inj SUBQ SCH ×2 (09:06→22:31)
--- NOTE | 2018-07-17 10:27 | Pulmonology Progress Note ---
Assessment/Plan Assessment/Plan ASSESSMENT: The patient is a 68-year-old male shelter resident with acute on chronic hypoxemic hypercapnic respiratory failure, bilateral infiltrates, likely recurrent healthcare-associated pneumonia, dementia, CVA, dysphagia, hypertension, sacral ulcer and CAD. PROBLEM LIST: 1. Multifocal pneumonia, healthcare-associated pneumonia. 2. [facility] resident. 3. Dementia/CVA. 4. Dysphagia. 5. Hypertension, CAD. 6. Protein albumin discordance. 7. Decubiti TREATMENT PLAN: 1. Optimize pulmonary hygiene/mobili ze as tolerated. 2. Titrate down FiO2 to keep saturations greater than 90%. 3. P.r.n. BiPAP. 4. Continue antibiotics (Zosyn) per ID, follow up cultures. 5. Dzrko-ykp-orutq and p.r.n. bronchodilators. 6. Aspiration precautions, cautious tube feeds. 7. Monitor volumes and renal function. 8. Heparin subcutaneous for DVT prophylaxis. 9. DNR/DNI, continue discuss goals of care. Subjective Allergies: Coded Allergies: CEFTRIAXONE (Verified Allergy, Unknown, 04/04/18) Subjective AFVSS, O2 needs stable, monse TFs, no distress, no cough, no FC Objective Last 24 Hour Vital Signs Date Time Temp Pulse Resp B/P (MAP) Pulse Ox O2 Delivery O2 Flow Rate FiO2 07/17/18 09:07 97 20 99 Nasal Cannula 2.0 28 07/17/18 09:06 Nasal Cannula 2.0 28 07/17/18 09:06 96 20 98 Nasal Cannula 2.0 28 07/17/18 09:02 98 Nasal Cannula 2.0 28 07/17/18 09:00 Nasal Cannula 2.0 07/17/18 08:43 99 109/68 07/17/18 08:00 97.3 99 20 109/68 (82) 99 07/17/18 04:00 99.0 95 20 111/69 (83) 94 07/17/18 02:00 94 20 99 Nasal Cannula 2.0 28 07/17/18 01:50 90 20 97 Nasal Cannula 2.0 28 07/17/18 00:00 98.7 98 20 124/74 (91) 98 07/16/18 21:00 Nasal Cannula 2.0 07/16/18 20:00 Nasal Cannula 2.0 28 07/16/18 20:00 97.3 98 20 123/70 (87) 96 07/16/18 19:40 92 20 98 Nasal Cannula 2.0 28 07/16/18 19:30 86 20 94 Nasal Cannula 2.0 28 07/16/18 19:30 94 Nasal Cannula 2.0 28 07/16/18 16:00 97.7 101 20 108/69 (82) 96 07/16/18 14:00 97.5 100 20 112/71 (85) 98 07/16/18 13:15 96 20 100 Nasal Cannula 2.0 28 07/16/18 13:08 84 22 100 Nasal Cannula 2.0 28 07/16/18 12:00 99.4 99 19 122/60 (80) 98 07/16/18 11:42 99 Intake and Output 07/16/18 07/17/18 18:59 06:59 Intake Total 702.5 ml 1067.5 ml Output Total 400 ml 450 ml Balance 302.5 ml 617.5 ml Intake Free Water 220 ml 330 ml IV Total 82.5 ml 137.5 ml Tube Feeding 400 ml 600 ml Output Urine Total 400 ml 450 ml # Bowel Movements 1 3 General Appearance: cachetic HEENT: normocephalic, atraumatic, anicteric, mucous membranes moist Respiratory/Chest: chest wall non-tender, lungs clear, normal breath sounds, no respiratory distress Cardiovascular: normal peripheral pulses, normal rate, regular rhythm Abdomen: normal bowel sounds, soft, non tender, no organomegaly, non distended , no mass Extremities: no cyanosis, no clubbing, no edema Laboratory Tests 07/17/18 05:15: White Blood Count 11.4H, Red Blood Count 3.34L, Hemoglobin 8.9L, Hematocrit 28.6L, Mean Corpuscular Volume 86, Mean Corpuscular Hemoglobin 26.6L, Mean Corpuscular Hemoglobin Concent 31.0L, Red Cell Distribution Width 16.9H, Platelet Count 569H, Mean Platelet Volume 6.2L, Neutrophils (%) (Auto) 76.1H, Lymphocytes (%) (Auto) 11.8L, Monocytes (%) (Auto) 4.8, Eosinophils (%) (Auto) 6.4H, Basophils (%) (Auto) 1.0, Sodium Level 140, Potassium Level 4.0, Chloride Level 101, Carbon Dioxide Level 33H, Anion Gap 6, Blood Urea Nitrogen 30H, Creatinine 0.7, Estimat Glomerular Filtration Rate > 60, Glucose Level 183H, Calcium Level 9.5 Current Medications Medications (Trade) Dose Ordered Sig/Briseida Route PRN Reason Start Time Stop Time Status Last Admin Dose Admin Acetaminophen (Tylenol) 650 mg Q4H PRN GT wound care 07/16/18 15:45 08/15/18 15:44 Albuterol/ Ipratropium (Albuterol/ Ipratropium) 3 ml Q6HRT HHN 07/16/18 19:00 07/21/18 00:59 07/17/18 09:02 Amlodipine Besylate (Norvasc) 10 mg DAILY GT 07/17/18 09:00 08/16/18 08:59 Ascorbic Acid (Vitamin C) 500 mg BID GT 07/16/18 18:00 08/09/18 08:59 07/17/18 08:42 Aspirin (ASA) 81 mg DAILY GT 07/17/18 09:00 08/09/18 10:28 07/17/18 08:43 Dextrose (Dextrose 50%) 25 ml Q30M PRN IV Hypoglycemia 07/16/18 15:45 08/15/18 15:44 Dextrose (Dextrose 50%) 50 ml Q30M PRN IV Hypoglycemia 07/16/18 15:45 08/15/18 15:44 Donepezil HCl (Aricept) 10 mg BEDTIME GT 07/16/18 21:00 08/09/18 20:59 07/16/18 21:14 Finasteride (Proscar) 5 mg DAILY ORAL 07/17/18 09:00 08/09/18 08:59 07/17/18 08:42 Heparin Sodium (Porcine) (Heparin 5000 units/ml) 5,000 units EVERY 12 HOURS SUBQ 07/16/18 21:00 08/09/18 20:59 07/17/18 09:06 Insulin Aspart (NovoLOG) Q6H SUBQ 07/16/18 18:00 08/13/18 05:59 07/17/18 05:41 Insulin Detemir (Levemir) 6 units BID SUBQ 07/16/18 18:00 08/09/18 08:59 07/17/18 08:48 Ipratropium [place] (Atrovent) 500 mcg Q4H PRN HHN Shortness of Breath 12/5/18 16:00 07/20/18 15:59 Loratadine (Claritin 10mg) 10 mg DAILY ORAL 07/17/18 09:00 08/09/18 08:59 07/17/18 08:43 Metformin HCl (Glucophage) 850 mg DAILY GT 07/17/18 09:00 08/09/18 08:59 07/17/18 08:43 Multivitamins Therapeutic (Therapeutic Multivitamin) 1 ea DAILY ORAL 07/17/18 09:00 08/09/18 08:59 07/17/18 08:43 Piperacillin Sod/ Tazobactam Sod 3.375 gm/Dextrose 110 ml @ 27.5 mls/hr EVERY 8 HOURS IVPB 07/16/18 15:45 07/23/18 15:44 07/17/18 05:39 Sitagliptin Phosphate (Januvia) 100 mg DAILY ORAL 07/17/18 09:00 08/09/18 08:59 07/17/18 08:43 Zinc Sulfate (Zinc Sulfate) 220 mg DAILY GT 07/17/18 09:00 08/09/18 08:59 07/17/18 08:42 Yrn Buckley MD Jul 17, 2018 10:27
[2018-07-17] MEDS ORDERED: Aspirin Baby 81mg GT SCH (10:29)
--- NOTE | 2018-07-17 10:48 | Nephrology Progress Note ---
Assessment/Plan Problem List: (1) UTI (urinary tract infection) (2) Cachexia (3) Proteinuria (4) Functional quadriplegia Assessment Presents with fever 1) Cachexia / Malnutrition (2) Proteinuria (3) UTI (urinary tract infection) (4) Diabetes mellitus out of control (5) Dementia Plan Pulmonary toilet Antibiotics Monitor renal parameters hold bp meds- parameters albumin bolus as needed Subjective ROS Limited/Unobtainable: No Constitutional: Reports: malaise Objective Objective Last 24 Hour Vital Signs Date Time Temp Pulse Resp B/P (MAP) Pulse Ox O2 Delivery O2 Flow Rate FiO2 07/17/18 09:07 97 20 99 Nasal Cannula 2.0 28 07/17/18 09:06 Nasal Cannula 2.0 28 07/17/18 09:06 96 20 98 Nasal Cannula 2.0 28 07/17/18 09:02 98 Nasal Cannula 2.0 28 07/17/18 09:00 Nasal Cannula 2.0 07/17/18 08:43 99 109/68 07/17/18 08:00 97.3 99 20 109/68 (82) 99 07/17/18 04:00 99.0 95 20 111/69 (83) 94 07/17/18 02:00 94 20 99 Nasal Cannula 2.0 28 07/17/18 01:50 90 20 97 Nasal Cannula 2.0 28 07/17/18 00:00 98.7 98 20 124/74 (91) 98 07/16/18 21:00 Nasal Cannula 2.0 07/16/18 20:00 Nasal Cannula 2.0 28 07/16/18 20:00 97.3 98 20 123/70 (87) 96 07/16/18 19:40 92 20 98 Nasal Cannula 2.0 28 07/16/18 19:30 86 20 94 Nasal Cannula 2.0 28 07/16/18 19:30 94 Nasal Cannula 2.0 28 07/16/18 16:00 97.7 101 20 108/69 (82) 96 07/16/18 14:00 97.5 100 20 112/71 (85) 98 07/16/18 13:15 96 20 100 Nasal Cannula 2.0 28 07/16/18 13:08 84 22 100 Nasal Cannula 2.0 28 07/16/18 12:00 99.4 99 19 122/60 (80) 98 07/16/18 11:42 99 Intake and Output 07/16/18 07/17/18 18:59 06:59 Intake Total 702.5 ml 1067.5 ml Output Total 400 ml 450 ml Balance 302.5 ml 617.5 ml Intake Free Water 220 ml 330 ml IV Total 82.5 ml 137.5 ml Tube Feeding 400 ml 600 ml Output Urine Total 400 ml 450 ml # Bowel Movements 1 3 Laboratory Tests 07/17/18 05:15: White Blood Count 11.4H, Red Blood Count 3.34L, Hemoglobin 8.9L, Hematocrit 28.6L, Mean Corpuscular Volume 86, Mean Corpuscular Hemoglobin 26.6L, Mean Corpuscular Hemoglobin Concent 31.0L, Red Cell Distribution Width 16.9H, Platelet Count 569H, Mean Platelet Volume 6.2L, Neutrophils (%) (Auto) 76.1H, Lymphocytes (%) (Auto) 11.8L, Monocytes (%) (Auto) 4.8, Eosinophils (%) (Auto) 6.4H, Basophils (%) (Auto) 1.0, Sodium Level 140, Potassium Level 4.0, Chloride Level 101, Carbon Dioxide Level 33H, Anion Gap 6, Blood Urea Nitrogen 30H, Creatinine 0.7, Estimat Glomerular Filtration Rate > 60, Glucose Level 183H, Calcium Level 9.5 Height (Feet): 5 Height (Inches): 3.00 Weight (Pounds): 112 General Appearance: no apparent distress Objective no change Chava Dwyer MD Jul 17, 2018 10:48
[2018-07-17 12:00] VITALS: BP 113/65
--- NOTE | 2018-07-17 12:28 | Infectious Diseases Prog Note ---
Assessment/Plan Assessment/Plan A; Sepsis Pneumonia Pressure ulcer infection with ESBL organisms Dementia Anemia P: Continue Zosyn Subjective ROS Limited/Unobtainable: Yes Respiratory: Reports: productive cough Allergies: Coded Allergies: CEFTRIAXONE (Verified Allergy, Unknown, 04/04/18) Objective Vital Signs Last 24 Hour Vital Signs Date Time Temp Pulse Resp B/P (MAP) Pulse Ox O2 Delivery O2 Flow Rate FiO2 07/17/18 09:07 97 20 99 Nasal Cannula 2.0 28 07/17/18 09:06 Nasal Cannula 2.0 28 07/17/18 09:06 96 20 98 Nasal Cannula 2.0 28 07/17/18 09:02 98 Nasal Cannula 2.0 28 07/17/18 09:00 Nasal Cannula 2.0 07/17/18 08:43 99 109/68 07/17/18 08:00 97.3 99 20 109/68 (82) 99 07/17/18 04:00 99.0 95 20 111/69 (83) 94 07/17/18 02:00 94 20 99 Nasal Cannula 2.0 28 07/17/18 01:50 90 20 97 Nasal Cannula 2.0 28 07/17/18 00:00 98.7 98 20 124/74 (91) 98 07/16/18 21:00 Nasal Cannula 2.0 07/16/18 20:00 Nasal Cannula 2.0 28 07/16/18 20:00 97.3 98 20 123/70 (87) 96 07/16/18 19:40 92 20 98 Nasal Cannula 2.0 28 07/16/18 19:30 86 20 94 Nasal Cannula 2.0 28 07/16/18 19:30 94 Nasal Cannula 2.0 28 07/16/18 16:00 97.7 101 20 108/69 (82) 96 07/16/18 14:00 97.5 100 20 112/71 (85) 98 07/16/18 13:15 96 20 100 Nasal Cannula 2.0 28 07/16/18 13:08 84 22 100 Nasal Cannula 2.0 28 Height (Feet): 5 Height (Inches): 3.00 Weight (Pounds): 112 General Appearance: no acute distress HEENT: mucous membranes moist Respiratory/Chest: rhonchi - bilaterally Cardiovascular: normal rate Abdomen: soft, non tender, other - GT feeding Extremities: no edema Skin: ulcers Neurologic/Psychiatric: aphasia Laboratory Tests Test 07/17/18 05:15 White Blood Count 11.4 K/UL (4.8-10.8) H Red Blood Count 3.34 M/UL (4.70-6.10) L Hemoglobin 8.9 G/DL (14.2-18.0) L Hematocrit 28.6 % (42.0-52.0) L Mean Corpuscular Volume 86 FL (80-99) Mean Corpuscular Hemoglobin 26.6 PG (27.0-31.0) L Mean Corpuscular Hemoglobin Concent 31.0 G/DL (32.0-36.0) L Red Cell Distribution Width 16.9 % (11.6-14.8) H Platelet Count 569 K/UL (150-450) H Mean Platelet Volume 6.2 FL (6.5-10.1) L Neutrophils (%) (Auto) 76.1 % (45.0-75.0) H Lymphocytes (%) (Auto) 11.8 % (20.0-45.0) L Monocytes (%) (Auto) 4.8 % (1.0-10.0) Eosinophils (%) (Auto) 6.4 % (0.0-3.0) H Basophils (%) (Auto) 1.0 % (0.0-2.0) Sodium Level 140 MMOL/L (136-145) Potassium Level 4.0 MMOL/L (3.5-5.1) Chloride Level 101 MMOL/L (98-107) Carbon Dioxide Level 33 MMOL/L (21-32) H Anion Gap 6 mmol/L (5-15) Blood Urea Nitrogen 30 mg/dL (7-18) H Creatinine 0.7 MG/DL (0.55-1.30) Estimat Glomerular Filtration Rate > 60 mL/min (>60) Glucose Level 183 MG/DL (74-106) H Calcium Level 9.5 MG/DL (8.5-10.1) Current Medications Medications (Trade) Dose Ordered Sig/Briseida Route PRN Reason Start Time Stop Time Status Last Admin Dose Admin Acetaminophen (Tylenol) 650 mg Q4H PRN GT wound care 07/16/18 15:45 08/15/18 15:44 Albuterol/ Ipratropium (Albuterol/ Ipratropium) 3 ml Q6HRT HHN 07/16/18 19:00 07/21/18 00:59 07/17/18 09:02 Amlodipine Besylate (Norvasc) 10 mg DAILY GT 07/17/18 09:00 08/16/18 08:59 Ascorbic Acid (Vitamin C) 500 mg BID GT 07/16/18 18:00 08/09/18 08:59 07/17/18 08:42 Aspirin (ASA) 81 mg DAILY GT 07/17/18 09:00 08/09/18 10:28 07/17/18 08:43 Dextrose (Dextrose 50%) 25 ml Q30M PRN IV Hypoglycemia 07/16/18 15:45 08/15/18 15:44 Dextrose (Dextrose 50%) 50 ml Q30M PRN IV Hypoglycemia 07/16/18 15:45 08/15/18 15:44 Donepezil HCl (Aricept) 10 mg BEDTIME GT 07/16/18 21:00 08/09/18 20:59 07/16/18 21:14 Finasteride (Proscar) 5 mg DAILY ORAL 07/17/18 09:00 08/09/18 08:59 07/17/18 08:42 Heparin Sodium (Porcine) (Heparin 5000 units/ml) 5,000 units EVERY 12 HOURS SUBQ 07/16/18 21:00 08/09/18 20:59 07/17/18 09:06 Insulin Aspart (NovoLOG) Q6H SUBQ 07/16/18 18:00 08/13/18 05:59 07/17/18 12:05 Insulin Detemir (Levemir) 6 units BID SUBQ 07/16/18 18:00 08/09/18 08:59 07/17/18 08:48 Ipratropium [place] (Atrovent) 500 mcg Q4H PRN HHN Shortness of Breath 07/16/18 16:00 07/20/18 15:59 Loratadine (Claritin 10mg) 10 mg DAILY ORAL 07/17/18 09:00 08/09/18 08:59 07/17/18 08:43 Metformin HCl (Glucophage) 850 mg DAILY GT 07/17/18 09:00 08/09/18 08:59 07/17/18 08:43 Multivitamins Therapeutic (Therapeutic Multivitamin) 1 ea DAILY ORAL 07/17/18 09:00 08/09/18 08:59 07/17/18 08:43 Piperacillin Sod/ Tazobactam Sod 3.375 gm/Dextrose 110 ml @ 27.5 mls/hr EVERY 8 HOURS IVPB 07/16/18 15:45 07/23/18 15:44 07/17/18 05:39 Sitagliptin Phosphate (Januvia) 100 mg DAILY ORAL 07/17/18 09:00 08/09/18 08:59 07/17/18 08:43 Zinc Sulfate (Zinc Sulfate) 220 mg DAILY GT 07/17/18 09:00 08/09/18 08:59 07/17/18 08:42 Herson Palmer MD Jul 17, 2018 12:28
--- NOTE | 2018-07-17 13:59 | General Surgery Progress Note ---
General Surgery-Progress Note Subjective Additional Comments no acute events. mild leukocytosis Objective Last 24 Hour Vital Signs Date Time Temp Pulse Resp B/P (MAP) Pulse Ox O2 Delivery O2 Flow Rate FiO2 07/17/18 13:30 92 20 99 Nasal Cannula 2.0 28 07/17/18 13:28 91 20 99 Nasal Cannula 2.0 28 07/17/18 12:00 98.3 96 20 113/65 (81) 99 07/17/18 09:07 97 20 99 Nasal Cannula 2.0 28 07/17/18 09:06 Nasal Cannula 2.0 28 07/17/18 09:06 96 20 98 Nasal Cannula 2.0 28 07/17/18 09:02 98 Nasal Cannula 2.0 28 07/17/18 09:00 Nasal Cannula 2.0 07/17/18 08:43 99 109/68 07/17/18 08:00 97.3 99 20 109/68 (82) 99 07/17/18 04:00 99.0 95 20 111/69 (83) 94 07/17/18 02:00 94 20 99 Nasal Cannula 2.0 28 07/17/18 01:50 90 20 97 Nasal Cannula 2.0 28 07/17/18 00:00 98.7 98 20 124/74 (91) 98 07/16/18 21:00 Nasal Cannula 2.0 07/16/18 20:00 Nasal Cannula 2.0 28 07/16/18 20:00 97.3 98 20 123/70 (87) 96 07/16/18 19:40 92 20 98 Nasal Cannula 2.0 28 07/16/18 19:30 86 20 94 Nasal Cannula 2.0 28 07/16/18 19:30 94 Nasal Cannula 2.0 28 07/16/18 16:00 97.7 101 20 108/69 (82) 96 07/16/18 14:00 97.5 100 20 112/71 (85) 98 I&O Intake and Output 07/16/18 07/17/18 19:00 07:00 Intake Total 802.5 ml 967.5 ml Output Total 400 ml 450 ml Balance 402.5 ml 517.5 ml Intake Free Water 320 ml 230 ml IV Total 82.5 ml 137.5 ml Tube Feeding 400 ml 600 ml Output Urine Total 400 ml 450 ml # Bowel Movements 1 3 Dressing: saturated, other Wound: other Drains: other Cardiovascular: RSR Respiratory: decreased breath sounds, other Abdomen: soft, flat, non-tender, present bowel sounds, other Extremities: other Laboratory Tests Test 07/17/18 05:15 White Blood Count 11.4 K/UL (4.8-10.8) H Red Blood Count 3.34 M/UL (4.70-6.10) L Hemoglobin 8.9 G/DL (14.2-18.0) L Hematocrit 28.6 % (42.0-52.0) L Mean Corpuscular Volume 86 FL (80-99) Mean Corpuscular Hemoglobin 26.6 PG (27.0-31.0) L Mean Corpuscular Hemoglobin Concent 31.0 G/DL (32.0-36.0) L Red Cell Distribution Width 16.9 % (11.6-14.8) H Platelet Count 569 K/UL (150-450) H Mean Platelet Volume 6.2 FL (6.5-10.1) L Neutrophils (%) (Auto) 76.1 % (45.0-75.0) H Lymphocytes (%) (Auto) 11.8 % (20.0-45.0) L Monocytes (%) (Auto) 4.8 % (1.0-10.0) Eosinophils (%) (Auto) 6.4 % (0.0-3.0) H Basophils (%) (Auto) 1.0 % (0.0-2.0) Sodium Level 140 MMOL/L (136-145) Potassium Level 4.0 MMOL/L (3.5-5.1) Chloride Level 101 MMOL/L (98-107) Carbon Dioxide Level 33 MMOL/L (21-32) H Anion Gap 6 mmol/L (5-15) Blood Urea Nitrogen 30 mg/dL (7-18) H Creatinine 0.7 MG/DL (0.55-1.30) Estimat Glomerular Filtration Rate > 60 mL/min (>60) Glucose Level 183 MG/DL (74-106) H Calcium Level 9.5 MG/DL (8.5-10.1) Plan Problems: (1) Sacral decubitus ulcer, stage IV Assessment & Plan: Pt presents with multiple full thickness pressure injuries R trochanteric pressure injury (L)3cm x (W)2.5cm,80% mixed soft necrosis and slough,otherwise granular with macerated borders.Periwound dark and indurated. Full thickness sacral pressure injury (L)9.4cm x (W)11.5cm x (D)2.5cm .Wound bed with good granulation tissue. Bone is visible .Small amt non-odorous brown exudate noted. Full thickness pressure injury to L trochanter (L)5.5cmx(W)4cm x0.8cm, undermining 11-6cm by 1.4cm @5o'clock. Both heels boggy with dark non-blanching erythema. All wounds present upon admission and will be cared for during admission Tx.Plan: Cleanse Sacral and L trochanteric wounds with Saline .Loosely pack with Hydrogel impregnated gauze. Cavilon to Borders and periwound. Cleanse R trochanteric wound with Saline.Apply Therahoney gel .Cavilon to borders .Cover with Optifoam drsg Daily and prn. Apply Cavilon to both heels.Cover with Optifoam drsg.Change every 7days and prn.Off-load heels with pillow. Reposition at minimum every 2hours or as tolerated. Air Fluidized mattress. bone exposed on sacral area. cultures noted. likely some chronic osteo but no acute active infection noted. Additional Comments okay to d/c from surgical standpoint wounds have been stable since admission Shamar Clark Jul 17, 2018 13:59
--- NOTE | 2018-07-17 14:14 | General Progress Note ---
Assessment/Plan Status: unchanged Assessment/Plan #. Anemia due to underlying chronic disease. ESR was 115 on last admission. Closely monitor for improvement. The patient has ongoing anemia, likely related to underlying decubitus ulceration. In addition to being chronically ill, bedbound, and hemoglobin, ferritin is >1000 --> transfuse if hgb <7 --> has been given 1 dose of epogen for more rapid recovery --> no hemolysis has been noted --> trend cbc daily --> new panel ordered. Ferritin at 345 --> have discontinued ferrous sulfate # Leukocytosis secondary to sepsis, pna --> Cont to monitor and trend wbc for improvement --> ID is following, appreciate recs --> On IV abx, empiric treatment #. Thrombocytosis is likely related to underlying anemia, infection, fevers --> Plt remains elevated --> trend and monitor platelet count for improvement --> continue on asa 81mg low dose #. Hyperproteinemia. Given albumin dissociation have ordered for spep and upep --> spep and upep have been ordered to evaluate for spike in m-spike, both are negative for m-spike --> continue to monitor in the future --> appreciate pulm recs #. Hospital-acquired pneumonia on prior admission --> repeat cxr shows bilateral interstitial and airspace disease --> s/p abx broad spectrum #. Azotemia. Given fluids as needed. BUN of 33. --> s/p ivf --> per renal management #. Stage IV ulcerations on the left and right side. Stage IV ulcerations --> Dr. Clark aware, is following --> Wound cx is positive on abx --> cream barriers calvion being applied, jaime as well #. Dysphagia, status post PEG tube. #. Incontinence with a Beltran catheter in place. --> Beltran catheter is in place. --> uro recs as needed on last admission #. DPOA wants comfort care/conservative care GREATLY APPRECIATE CONSULTATION Subjective Date patient seen: Jul 17, 2018 ROS Limited/Unobtainable: Yes Hematologic/Lymphatic: Reports: anemia Allergies: Coded Allergies: CEFTRIAXONE (Verified Allergy, Unknown, 04/04/18) Subjective Pt remains nonverbal and bedridden. No acute events.VS stable. H/H stable. Objective Last 24 Hour Vital Signs Date Time Temp Pulse Resp B/P (MAP) Pulse Ox O2 Delivery O2 Flow Rate FiO2 07/17/18 13:30 92 20 99 Nasal Cannula 2.0 28 07/17/18 13:28 91 20 99 Nasal Cannula 2.0 28 07/17/18 12:00 98.3 96 20 113/65 (81) 99 07/17/18 09:07 97 20 99 Nasal Cannula 2.0 28 07/17/18 09:06 Nasal Cannula 2.0 28 07/17/18 09:06 96 20 98 Nasal Cannula 2.0 28 07/17/18 09:02 98 Nasal Cannula 2.0 28 07/17/18 09:00 Nasal Cannula 2.0 07/17/18 08:43 99 109/68 07/17/18 08:00 97.3 99 20 109/68 (82) 99 07/17/18 04:00 99.0 95 20 111/69 (83) 94 07/17/18 02:00 94 20 99 Nasal Cannula 2.0 28 07/17/18 01:50 90 20 97 Nasal Cannula 2.0 28 07/17/18 00:00 98.7 98 20 124/74 (91) 98 07/16/18 21:00 Nasal Cannula 2.0 07/16/18 20:00 Nasal Cannula 2.0 28 07/16/18 20:00 97.3 98 20 123/70 (87) 96 07/16/18 19:40 92 20 98 Nasal Cannula 2.0 28 07/16/18 19:30 86 20 94 Nasal Cannula 2.0 28 07/16/18 19:30 94 Nasal Cannula 2.0 28 07/16/18 16:00 97.7 101 20 108/69 (82) 96 Intake and Output 07/16/18 07/17/18 19:00 07:00 Intake Total 802.5 ml 967.5 ml Output Total 400 ml 450 ml Balance 402.5 ml 517.5 ml Intake Free Water 320 ml 230 ml IV Total 82.5 ml 137.5 ml Tube Feeding 400 ml 600 ml Output Urine Total 400 ml 450 ml # Bowel Movements 1 3 Laboratory Tests 07/17/18 05:15: White Blood Count 11.4H, Red Blood Count 3.34L, Hemoglobin 8.9L, Hematocrit 28.6L, Mean Corpuscular Volume 86, Mean Corpuscular Hemoglobin 26.6L, Mean Corpuscular Hemoglobin Concent 31.0L, Red Cell Distribution Width 16.9H, Platelet Count 569H, Mean Platelet Volume 6.2L, Neutrophils (%) (Auto) 76.1H, Lymphocytes (%) (Auto) 11.8L, Monocytes (%) (Auto) 4.8, Eosinophils (%) (Auto) 6.4H, Basophils (%) (Auto) 1.0, Sodium Level 140, Potassium Level 4.0, Chloride Level 101, Carbon Dioxide Level 33H, Anion Gap 6, Blood Urea Nitrogen 30H, Creatinine 0.7, Estimat Glomerular Filtration Rate > 60, Glucose Level 183H, Calcium Level 9.5 Height (Feet): 5 Height (Inches): 3.00 Weight (Pounds): 112 Objective PE: VITAL SIGNS: Reviewed. GENERAL: Not in acute distress. The patient is contracted, lying in bed, bedbound, ill and lethargic. PULMONARY: Decreased breath sounds, 1 to 2+ crackles in bilateral lungs. Nasal cannula in place. CARDIOVASCULAR: Regular rate and crackles noted overlying the heart sounds. ABDOMEN: Soft, nontender, nondistended. + G-tube. EXTREMITIES: No cce Nikolai Richards MD Jul 17, 2018 14:14
[2018-07-17 16:00] VITALS: BP 117/70
[2018-07-17 20:00] VITALS: BP 107/86
[2018-07-17] MEDS: Donepezil 10mg tab GT SCH (22:28)
--- NOTE | 2018-07-17 23:17 | General Progress Note ---
Assessment/Plan Problem List: (1) Dementia ICD Codes: F03.90 - Unspecified dementia without behavioral disturbance SNOMED: [id number] Status: stable Assessment/Plan Aricept Ativan prn the pt lacks capacity to make decisions. Subjective Neurologic/Psychiatric: Reports: anxiety, depressed, emotional problems Allergies: Coded Allergies: CEFTRIAXONE (Verified Allergy, Unknown, 04/04/18) Subjective The pt is confused. and unable to provide hx yelling agitated Objective Last 24 Hour Vital Signs Date Time Temp Pulse Resp B/P (MAP) Pulse Ox O2 Delivery O2 Flow Rate FiO2 07/17/18 20:49 95 20 99 Nasal Cannula 2.0 28 07/17/18 20:35 94 18 99 Nasal Cannula 2.0 28 07/17/18 20:35 Nasal Cannula 2.0 28 07/17/18 20:35 99 Nasal Cannula 2.0 28 07/17/18 16:00 99.3 105 20 117/70 (86) 98 07/17/18 13:30 92 20 99 Nasal Cannula 2.0 28 07/17/18 13:28 91 20 99 Nasal Cannula 2.0 28 07/17/18 12:00 98.3 96 20 113/65 (81) 99 07/17/18 09:07 97 20 99 Nasal Cannula 2.0 28 07/17/18 09:06 Nasal Cannula 2.0 28 07/17/18 09:06 96 20 98 Nasal Cannula 2.0 28 07/17/18 09:02 98 Nasal Cannula 2.0 28 07/17/18 09:00 Nasal Cannula 2.0 07/17/18 08:43 99 109/68 07/17/18 08:00 97.3 99 20 109/68 (82) 99 07/17/18 04:00 99.0 95 20 111/69 (83) 94 07/17/18 02:00 94 20 99 Nasal Cannula 2.0 28 07/17/18 01:50 90 20 97 Nasal Cannula 2.0 28 07/17/18 00:00 98.7 98 20 124/74 (91) 98 Intake and Output 07/16/18 07/17/18 19:00 07:00 Intake Total 802.5 ml 967.5 ml Output Total 400 ml 450 ml Balance 402.5 ml 517.5 ml Intake Free Water 320 ml 230 ml IV Total 82.5 ml 137.5 ml Tube Feeding 400 ml 600 ml Output Urine Total 400 ml 450 ml # Bowel Movements 1 3 Laboratory Tests 07/17/18 05:15: White Blood Count 11.4H, Red Blood Count 3.34L, Hemoglobin 8.9L, Hematocrit 28.6L, Mean Corpuscular Volume 86, Mean Corpuscular Hemoglobin 26.6L, Mean Corpuscular Hemoglobin Concent 31.0L, Red Cell Distribution Width 16.9H, Platelet Count 569H, Mean Platelet Volume 6.2L, Neutrophils (%) (Auto) 76.1H, Lymphocytes (%) (Auto) 11.8L, Monocytes (%) (Auto) 4.8, Eosinophils (%) (Auto) 6.4H, Basophils (%) (Auto) 1.0, Sodium Level 140, Potassium Level 4.0, Chloride Level 101, Carbon Dioxide Level 33H, Anion Gap 6, Blood Urea Nitrogen 30H, Creatinine 0.7, Estimat Glomerular Filtration Rate > 60, Glucose Level 183H, Calcium Level 9.5 Height (Feet): 5 Height (Inches): 3.00 Weight (Pounds): 112 General Appearance: alert, confused, agitated MIPS Medication Reconciliation Is this a Psycho/Diag encounte: No Unhealthy Alcohol Use 431 (psycho/diag only) Patient was screened for unhealthy alcohol use today or within the past 2 years. Patient was NOT identified as an unhealthy alcohol user. Tobacco Use 226 (psycho/diag only) Patient was screened for tobacco use today or within the past 2 years. Patient was NOT identified as a tobacco user. BMI 128 (psycho/diag only) BMI was documented today or within the past year. BMI was within normal parameters. Depression 134,411,370 (psycho/diag only) Depression screening was performed today. PHQ-9 Score: 22 Does this Patient have Dementi: Yes Safety Screening-Dementia 286 (psycho/diag only) Safety screening performed today-negative. Caregiver Health-Dementia 288 (psycho/diag only) Caregiver was informed today that he/she is at an increased risk of illness, including circulatory and heart conditions, respiratory disease, hypertension, anxiety, and depression. Caregiver was provided with education on dementia disease management and referred to additional resources for support. Shawn Meza MD Jul 17, 2018 23:17
[2018-07-18] VITALS: BP 111/79
[2018-07-18] MEDS: Albuterol/Ipratropium 3ml neb HHN SCH ×3 (01:30→12:49)
[2018-07-18] MEDS: Piperacillin/Tazobactam 3.375 GM in D5W 110 ML IVPB SCH (06:58)
[2018-07-18] MEDS: NovoLOG Insulin Flexpen SUBQ SCH ×2 (06:59→12:24)
--- NOTE | 2018-07-18 07:05 | General Progress Note ---
Assessment/Plan Assessment/Plan #. Anemia due to underlying chronic disease. ESR was 115 on last admission. Closely monitor for improvement. The patient has ongoing anemia, likely related to underlying decubitus ulceration. In addition to being chronically ill, bedbound, and hemoglobin, ferritin is >1000 --> transfuse if hgb <7 --> has been given 1 dose of epogen for more rapid recovery --> no hemolysis has been noted --> trend cbc daily --> new panel ordered. Ferritin at 345 --> have discontinued ferrous sulfate # Leukocytosis secondary to sepsis, pna --> Cont to monitor and trend wbc for improvement --> ID is following, appreciate recs --> On IV abx, empiric treatment #. Thrombocytosis is likely related to underlying anemia, infection, fevers --> Plt remains elevated --> trend and monitor platelet count for improvement --> continue on asa 81mg low dose #. Hyperproteinemia. Given albumin dissociation have ordered for spep and upep --> spep and upep have been ordered to evaluate for spike in m-spike, both are negative for m-spike --> continue to monitor in the future --> appreciate pulm recs #. Hospital-acquired pneumonia on prior admission --> repeat cxr shows bilateral interstitial and airspace disease --> s/p abx broad spectrum #. Azotemia. Given fluids as needed. BUN of 33. --> s/p ivf --> per renal management #. Stage IV ulcerations on the left and right side. Stage IV ulcerations --> Dr. Clark aware, is following --> Wound cx is positive on abx --> cream barriers calvion being applied, jaime as well #. Dysphagia, status post PEG tube. --> nutrition consult #. Incontinence with a Beltran catheter in place. --> Beltran catheter is in place. --> uro recs as needed on last admission #. DPOA wants comfort care/conservative care GREATLY APPRECIATE CONSULTATION Subjective Allergies: Coded Allergies: CEFTRIAXONE (Verified Allergy, Unknown, 04/04/18) Subjective Pt remains nonverbal and bedridden. Yelling out. No acute events.VS stable. H/H stable. Objective Last 24 Hour Vital Signs Date Time Temp Pulse Resp B/P (MAP) Pulse Ox O2 Delivery O2 Flow Rate FiO2 07/18/18 01:46 90 20 99 Nasal Cannula 2.0 28 07/18/18 01:30 89 18 99 Nasal Cannula 2.0 28 07/18/18 00:00 97.7 85 18 111/79 (90) 100 07/17/18 21:00 Nasal Cannula 2.0 07/17/18 20:49 95 20 99 Nasal Cannula 2.0 28 07/17/18 20:35 94 18 99 Nasal Cannula 2.0 28 07/17/18 20:35 Nasal Cannula 2.0 28 07/17/18 20:35 99 Nasal Cannula 2.0 28 07/17/18 20:00 97.9 96 18 107/86 (93) 99 07/17/18 16:00 99.3 105 20 117/70 (86) 98 07/17/18 13:30 92 20 99 Nasal Cannula 2.0 28 07/17/18 13:28 91 20 99 Nasal Cannula 2.0 28 07/17/18 12:00 98.3 96 20 113/65 (81) 99 07/17/18 09:07 97 20 99 Nasal Cannula 2.0 28 07/17/18 09:06 Nasal Cannula 2.0 28 07/17/18 09:06 96 20 98 Nasal Cannula 2.0 28 07/17/18 09:02 98 Nasal Cannula 2.0 28 07/17/18 09:00 Nasal Cannula 2.0 07/17/18 08:43 99 109/68 07/17/18 08:00 97.3 99 20 109/68 (82) 99 Intake and Output 07/17/18 07/18/18 19:00 07:00 Intake Total 1072.5 ml Output Total 750 ml Balance 1072.5 ml -750 ml Intake Free Water 330 ml IV Total 192.5 ml Tube Feeding 550 ml Output Urine Total 750 ml # Bowel Movements 2 Height (Feet): 5 Height (Inches): 3.00 Weight (Pounds): 112 General Appearance: no apparent distress EENT: PERRL/EOMI Neck: normal alignment Cardiovascular: normal peripheral pulses Respiratory/Chest: normal breath sounds Abdomen: soft Extremities: normal range of motion Edema: mild edema Neurologic: alert Skin: warm/dry Objective PE: VITAL SIGNS: Reviewed. GENERAL: Not in acute distress. The patient is contracted, lying in bed, bedbound, ill and lethargic. PULMONARY: Decreased breath sounds, 1 to 2+ crackles in bilateral lungs. Nasal cannula in place. CARDIOVASCULAR: Regular rate and crackles noted overlying the heart sounds. ABDOMEN: Soft, nontender, nondistended. + G-tube. EXTREMITIES: No cce Nikolai Richards MD Jul 18, 2018 07:05
[2018-07-18 08:00] VITALS: BP 110/61
[2018-07-18] MEDS: Multivitamin w/Minerals tab ORAL SCH (09:06)
[2018-07-18] MEDS ORDERED: HEPARIN SO5000 UNIT2 SUBQ (09:06)
[2018-07-18] MEDS: Ascorbic Acid 500mg tab GT SCH (09:06)
[2018-07-18] MEDS: Zinc Sulfate 220mg cap GT SCH (09:06)
[2018-07-18] MEDS: Aspirin Baby 81mg GT SCH (09:06)
[2018-07-18] MEDS: Heparin 5000 units/ml inj SUBQ SCH (09:13)
[2018-07-18] MEDS: Levemir Flexpen SUBQ SCH (09:13)
--- NOTE | 2018-07-18 10:28 | Nephrology Progress Note ---
Assessment/Plan Problem List: (1) UTI (urinary tract infection) (2) Cachexia (3) Proteinuria (4) Functional quadriplegia Assessment Presents with fever 1) Cachexia / Malnutrition (2) Proteinuria (3) UTI (urinary tract infection) (4) Diabetes mellitus out of control (5) Dementia Plan Pulmonary toilet Antibiotics Monitor renal parameters hold bp meds- parameters albumin bolus as needed ? Placement Subjective ROS Limited/Unobtainable: No Constitutional: Reports: malaise Objective Objective Last 24 Hour Vital Signs Date Time Temp Pulse Resp B/P (MAP) Pulse Ox O2 Delivery O2 Flow Rate FiO2 07/18/18 09:00 110 110/61 07/18/18 08:00 98.6 110 20 110/61 (77) 100 07/18/18 07:20 95 20 99 Nasal Cannula 2.0 28 07/18/18 07:12 Nasal Cannula 2.0 28 07/18/18 07:12 98 Nasal Cannula 2.0 28 07/18/18 07:12 97 18 98 Nasal Cannula 2.0 28 07/18/18 01:46 90 20 99 Nasal Cannula 2.0 28 07/18/18 01:30 89 18 99 Nasal Cannula 2.0 28 07/18/18 00:00 97.7 85 18 111/79 (90) 100 07/17/18 21:00 Nasal Cannula 2.0 07/17/18 20:49 95 20 99 Nasal Cannula 2.0 28 07/17/18 20:35 94 18 99 Nasal Cannula 2.0 28 07/17/18 20:35 Nasal Cannula 2.0 28 07/17/18 20:35 99 Nasal Cannula 2.0 28 07/17/18 20:00 97.9 96 18 107/86 (93) 99 07/17/18 16:00 99.3 105 20 117/70 (86) 98 07/17/18 13:30 92 20 99 Nasal Cannula 2.0 28 07/17/18 13:28 91 20 99 Nasal Cannula 2.0 28 07/17/18 12:00 98.3 96 20 113/65 (81) 99 Intake and Output 07/17/18 07/18/18 18:59 06:59 Intake Total 1122.5 ml Output Total 750 ml Balance 1122.5 ml -750 ml Intake Free Water 330 ml IV Total 192.5 ml Tube Feeding 600 ml Output Urine Total 750 ml # Bowel Movements 2 Height (Feet): 5 Height (Inches): 3.00 Weight (Pounds): 112 General Appearance: no apparent distress, lethargic Cardiovascular: tachycardia Respiratory/Chest: decreased breath sounds Abdomen: soft Objective no change Chava Dwyer MD Jul 18, 2018 10:27
[2018-07-18 12:00] VITALS: BP 114/54
--- NOTE | 2018-07-18 12:12 | General Surgery Progress Note ---
General Surgery-Progress Note Subjective Additional Comments improved today. respiratory status seems improved. wound stable Objective Last 24 Hour Vital Signs Date Time Temp Pulse Resp B/P (MAP) Pulse Ox O2 Delivery O2 Flow Rate FiO2 07/18/18 09:00 110 110/61 07/18/18 08:00 98.6 110 20 110/61 (77) 100 07/18/18 07:20 95 20 99 Nasal Cannula 2.0 28 07/18/18 07:12 Nasal Cannula 2.0 28 07/18/18 07:12 98 Nasal Cannula 2.0 28 07/18/18 07:12 97 18 98 Nasal Cannula 2.0 28 07/18/18 01:46 90 20 99 Nasal Cannula 2.0 28 07/18/18 01:30 89 18 99 Nasal Cannula 2.0 28 07/18/18 00:00 97.7 85 18 111/79 (90) 100 07/17/18 21:00 Nasal Cannula 2.0 07/17/18 20:49 95 20 99 Nasal Cannula 2.0 28 07/17/18 20:35 94 18 99 Nasal Cannula 2.0 28 07/17/18 20:35 Nasal Cannula 2.0 28 07/17/18 20:35 99 Nasal Cannula 2.0 28 07/17/18 20:00 97.9 96 18 107/86 (93) 99 07/17/18 16:00 99.3 105 20 117/70 (86) 98 07/17/18 13:30 92 20 99 Nasal Cannula 2.0 28 07/17/18 13:28 91 20 99 Nasal Cannula 2.0 28 I&O Intake and Output 07/17/18 07/18/18 18:59 06:59 Intake Total 1122.5 ml Output Total 750 ml Balance 1122.5 ml -750 ml Intake Free Water 330 ml IV Total 192.5 ml Tube Feeding 600 ml Output Urine Total 750 ml # Bowel Movements 2 Dressing: saturated Wound: clean, other Drains: other Cardiovascular: RSR Respiratory: clear, decreased breath sounds Abdomen: soft, non-tender, present bowel sounds, other Extremities: other Plan Problems: (1) Sacral decubitus ulcer, stage IV Assessment & Plan: Pt presents with multiple full thickness pressure injuries R trochanteric pressure injury (L)3cm x (W)2.5cm,80% mixed soft necrosis and slough,otherwise granular with macerated borders.Periwound dark and indurated. Full thickness sacral pressure injury (L)9.4cm x (W)11.5cm x (D)2.5cm .Wound bed with good granulation tissue. Bone is visible .Small amt non-odorous brown exudate noted. Full thickness pressure injury to L trochanter (L)5.5cmx(W)4cm x0.8cm, undermining 11-6cm by 1.4cm @5o'clock. Both heels boggy with dark non-blanching erythema. All wounds present upon admission and will be cared for during admission Tx.Plan: Cleanse Sacral and L trochanteric wounds with Saline .Loosely pack with Hydrogel impregnated gauze. Cavilon to Borders and periwound. Cleanse R trochanteric wound with Saline.Apply Therahoney gel .Cavilon to borders .Cover with Optifoam drsg Daily and prn. Apply Cavilon to both heels.Cover with Optifoam drsg.Change every 7days and prn.Off-load heels with pillow. Reposition at minimum every 2hours or as tolerated. Air Fluidized mattress. bone exposed on sacral area. cultures noted. likely some chronic osteo but no acute active infection noted. Shamar Clark Jul 18, 2018 12:12
--- NOTE | 2018-07-18 12:37 | General Progress Note ---
Assessment/Plan Problem List: (1) Dementia ICD Codes: F03.90 - Unspecified dementia without behavioral disturbance SNOMED: 30930637 Status: stable, progressing Assessment/Plan Aricept Ativan prn the pt lacks capacity to make decisions. Subjective Neurologic/Psychiatric: Reports: anxiety, depressed, emotional problems Allergies: Coded Allergies: CEFTRIAXONE (Verified Allergy, Unknown, 04/04/18) Subjective The pt is the same Objective Last 24 Hour Vital Signs Date Time Temp Pulse Resp B/P (MAP) Pulse Ox O2 Delivery O2 Flow Rate FiO2 07/18/18 12:00 98.4 79 17 114/54 (74) 100 07/18/18 09:00 Nasal Cannula 2.0 07/18/18 09:00 110 110/61 07/18/18 08:00 98.6 110 20 110/61 (77) 100 07/18/18 07:20 95 20 99 Nasal Cannula 2.0 28 07/18/18 07:12 Nasal Cannula 2.0 28 07/18/18 07:12 98 Nasal Cannula 2.0 28 07/18/18 07:12 97 18 98 Nasal Cannula 2.0 28 07/18/18 01:46 90 20 99 Nasal Cannula 2.0 28 07/18/18 01:30 89 18 99 Nasal Cannula 2.0 28 07/18/18 00:00 97.7 85 18 111/79 (90) 100 07/17/18 21:00 Nasal Cannula 2.0 07/17/18 20:49 95 20 99 Nasal Cannula 2.0 28 07/17/18 20:35 94 18 99 Nasal Cannula 2.0 28 07/17/18 20:35 Nasal Cannula 2.0 28 07/17/18 20:35 99 Nasal Cannula 2.0 28 07/17/18 20:00 97.9 96 18 107/86 (93) 99 07/17/18 16:00 99.3 105 20 117/70 (86) 98 07/17/18 13:30 92 20 99 Nasal Cannula 2.0 28 07/17/18 13:28 91 20 99 Nasal Cannula 2.0 28 Intake and Output 07/17/18 07/18/18 18:59 06:59 Intake Total 1122.5 ml Output Total 750 ml Balance 1122.5 ml -750 ml Intake Free Water 330 ml IV Total 192.5 ml Tube Feeding 600 ml Output Urine Total 750 ml # Bowel Movements 2 Height (Feet): 5 Height (Inches): 3.00 Weight (Pounds): 112 General Appearance: no apparent distress, alert Neurologic: responsive, depressed affect Shawn Meza MD Jul 18, 2018 12:37
--- NOTE | 2018-07-20 10:45 | Discharge Summary ---
Discharge Summary Discharge Summary _ DATE OF ADMISSION: 07/09/2018 DATE OF DISCHARGE: 07/18/2018 REASON FOR ADMISSION: 68 years old male, resident of [facility] facility, with past medical history of diabetes mellitus, hypertension, asthma, CVA/TIA, dysphagia, G-tube, dementia, bedridden status, DNR/DNI status, was sent to emergency department for evaluation due to fever. Tylenol was given in the facility prior to arrival of paramedics. Upon evaluation in the emergency department patient was afebrile, but tachycardic. Patient required supplemental oxygen with pulse oximetry reaching 96% on 2 L of oxygen via nasal cannula. Laboratory workup revealed leukocytosis, anemia, elevated platelet count. BUN 33, creatinine 0.7. Troponin negative. EKG demonstrated sinus rhythm, no acute ischemic changes. Total protein 11.0. Albumin 2.5. Urinalysis revealed no evidence of UTI, +2 protein. Chest x-ray demonstrated bilateral interstitial and airspace disease, left greater than right, chronic changes versus recurrent acute disease. Patient was admitted for further management with diagnoses of fever, possible sepsis, probable pneumonia, prerenal azotemia, sacral decubitus ulcer, present on admission, anemia, thrombocytosis. CONSULTANTS: pulmonary ID specialist Dr. Carreon engagement liaison Dr. Dwyer e commerce solution architect/oncologist Dr. Richards surgery Dr. Clark psychiatrist [facility]RSE: Patient admitted and started on empiric antibiotics. Supplemental oxygen provided to keep pulse oximetry above 92%. Hand-held nebulizing therapy with bronchodilator provided [id number] and as needed. Strict aspiration precautions were maintained. Volumes and renal parameters were closely monitored. DVT prophylaxis provided. Forest Fire Warden and infectious disease specialists closely followed. Blood cultures were negative. Sputum was not collected. Stool for C. difficile was negative. Culture of sacral decubitus ulcer revealed E. coli ESBL and Proteus ESBL. Surgeon closely followed for present on admission sacral decubitus ulcer stage IV. Wound care provided as per surgeon recommendations. Wound care to be continued at the [facility] facility. X-ray of the right hip showed no radiographic evidence of acute osteomyelitis According to surgeon, patient likely have chronic osteomyelitis, but no evidence of acute infection at this time noted. G-tube feeding tolerance was closely monitored. G-tube site care provided. Line Patrolman recommendations implemented in d plan of care. Rivet Hole Machine Operator closely followed. Renal parameters and electrolytes were closely monitored. Electrolytes corrected as needed , and nephrotoxins were avoided. Antihypertensive medications were on hold due to low blood pressure. Patient was received albumin boluses on as needed basis. Blood pressure stabilized.suicharge 114/54. Patient noted to have +2 protein in the urine , likely related to diabetes mellitus out of control. Blood sugar was managed with long-acting insulin , Januvia , metformin and short acting sliding scale of insulin as needed. Mail Forwarding System Markup Clerk followed. Anemia workup was consistent with anemia of chronic disease. Hemoglobin hematocrit were closely monitored with goal to keep hemoglobin above 7. Prior to discharge hemoglobin 8.9 and hematocrit 28.6. Patient noted to have thrombocytosis, likely related to underlying anemia and infection. Platelet count remained elevated. Continue to monitor counts at the facility. Patient with evidence of elevated protein. Given protein/albumin dissociation , serum and urine protein electrophoresis were ordered on previous admission for evaluation of m spike. Both were negative for m spike. Psychiatrist followed. Aricept was continued. No evidence of behavioral disturbances. Patient stabilized and was ready for transfer back to [facility] facility for continuation of care. FINAL DIAGNOSES: Sepsis Multifocal pneumonia/healthcare associated pneumonia Stage IV sacral decubitus present on admission with ESBL organism Anemia of chronic disease Protein albumin discordance Thrombocytosis History of CVA Dysphagia G-tube Dementia Functional quadriplegia Cachexia with malnutrition Diabetes mellitus Proteinuria likely due to diabetes mellitus DISCHARGE MEDICATIONS: See Medication Reconciliation list. DISCHARGE INSTRUCTIONS: Patient was discharged to the [facility] facility. Follow up with medical doctor at the facility. I have been assigned to dictate discharge summary for this account. I was not involved in the patient's management. Rena Machuca NP Jul 20, 2018 10:45
== END 2018-07-18 14:45 | DRG 871 ==
LOC: EDBD 19:55 → EMR 20:30 → 2E 21:33 → EDBEDREQ 22:18 → 4E 07-16 13:50
DX: A41.9 Sepsis, unspecified organism (principal); L89.154 Pressure ulcer of sacral region, stage 4; L89.213 Pressure ulcer of right hip, stage 3; L89.224 Pressure ulcer of left hip, stage 4; J18.9 Pneumonia, unspecified organism; R53.2 Functional quadriplegia; N39.0 Urinary tract infection, site not specified; E46 Unspecified protein-calorie malnutrition; Z68.1 Body mass index [BMI] 19.9 or less, adult; M86.60 Other chronic osteomyelitis, unspecified site; Y95 Nosocomial condition; I10 Essential (primary) hypertension; E11.65 Type 2 diabetes mellitus with hyperglycemia; N40.0 Benign prostatic hyperplasia without lower urinary tract symptoms; D50.9 Iron deficiency anemia, unspecified; Z66 Do not resuscitate; R13.10 Dysphagia, unspecified; Z93.1 Gastrostomy status; N40.1 Benign prostatic hyperplasia with lower urinary tract symptoms; N39.498 Other specified urinary incontinence; F03.90 Unspecified dementia, unspecified severity, without behavioral disturbance, psychotic disturbance, mood disturbance, and anxiety; Z86.73 Personal history of transient ischemic attack (TIA), and cerebral infarction without residual deficits; F41.9 Anxiety disorder, unspecified; Z74.01 Bed confinement status; D47.3 Essential (hemorrhagic) thrombocythemia
CPT/HCPCS: 36415; 36600; 71045; 80048; 80053; 81003; 82270; 82378; 82550; 82553; 82607; 82728; 82746; 82803; 82962; 83010; 83090; 83540; 83550; 83605; 83615; 83735; 83880; 84100; 84443; 84484; 84550; 85007; 85025; 85044; 85060; 85384; 85660; 86140; 87040; 87070; 87081; 87181; 87205; 87324; 93005; 94640; 94664; 94760; 96365; 99291; J1815; J7620; S5561

== ENCOUNTER 2018-07-27 17:23 | Inpatient (IN) | payer MEDICARE, MEDICAID ==
[~2018-07-27] VITALS: Ht 170.2 cm; Wt 64.2 kg
[2018-07-27 17:23] VITALS: BP 112/81
[~2018-07-27 17:23] MED LIST changes: +HEPARIN SO5000 UNIT2 SUBQ; -JANUVIA25 MG ORAL; +ZINC SULFATE220 M1 GT; -ZINC SULFATE220 M1 ORAL
[2018-07-27] MEDS ORDERED: Piperacillin/Tazobactam 3.375 GM in NS 110 ML IVPB ONE (17:45)
[2018-07-27] MEDS ORDERED: Vancomycin 1 GM in NS 275 ML IV ONE (17:45)
[2018-07-27] MEDS ORDERED: NS 1000ml 1,900 ML IVLG ONE (17:45)
[2018-07-27 18:24] LABS: BASOPHILS % (AUTO) 1.1 % (0.0-2.0); EOSINOPHILS % (AUTO) 8.6 % (0.0-3.0); HEMATOCRIT 30.2 % (42.0-52.0); HEMOGLOBIN 9.3 G/DL (14.2-18.0); LYMPHOCYTES % (AUTO) 13.3 % (20.0-45.0); MEAN CORPUSCULAR VOLUME 85 FL (80-99); MONOCYTES % (AUTO) 5.5 % (1.0-10.0); NEUTROPHILS % (AUTO) 71.5 % (45.0-75.0); PLATELET COUNT 540 K/UL (150-450); RED BLOOD COUNT 3.55 M/UL (4.70-6.10); RED CELL DISTRIBUTION WIDTH 16.8 % (11.6-14.8); WHITE BLOOD COUNT 12.4 K/UL (4.8-10.8)
[2018-07-27 18:32] LABS: ANION GAP 7 mmol/L (5-15); BLOOD UREA NITROGEN 29 mg/dL (7-18); CALCIUM 9.7 MG/DL (8.5-10.1); CARBON DIOXIDE 31 MMOL/L (21-32); CHLORIDE 103 MMOL/L (98-107); CREATININE 0.7 MG/DL (0.55-1.30); POTASSIUM 4.5 MMOL/L (3.5-5.1); SODIUM 141 MMOL/L (136-145)
[2018-07-27 18:33] LABS: INR 1.1 (0.9-1.1)
[2018-07-27 18:41] LABS: ALANINE AMINOTRANSFERASE 12 U/L (12-78); ALBUMIN 2.4 G/DL (3.4-5.0); ALBUMIN/GLOBULIN RATIO 0.3 (1.0-2.7); ALKALINE PHOSPHATASE 132 U/L (46-116); ASPARTATE AMINO TRANSFERASE 17 U/L (15-37); BILIRUBIN,TOTAL 0.2 MG/DL (0.2-1.0); CREATINE KINASE 15 U/L (26-308)
[2018-07-27 18:59] LABS: APPEARANCE,URINE TURBID; BILIRUBIN, URINE NEGATIVE (NEGATIVE); COLOR,URINE AMBER; GLUCOSE, URINE (UA) NEGATIVE (NEGATIVE); KETONES,URINE NEGATIVE (NEGATIVE); LEUKOCYTE ESTERASE ,URINE 2+ (NEGATIVE); NITRITE,URINE POSITIVE (NEGATIVE); PH,URINE 8 (4.5-8.0); PROTEIN,URINE 2+ (NEGATIVE); UROBILINOGEN,URINE 1 MG/DL (0.0-1.0)
--- NOTE | 2018-07-27 19:31 | Emergency Room Report ---
History of Present Illness General Chief Complaint: Fever Source: Medical Record, EMS Present Illness HPI Patient returns to ED as G tube has partially pulled out. Here to have this re- inserted. Recent admissions for sepsis. Planned for Hospice care to start tomorrow. DNR/DNI. Discharged with dx: Sepsis Multifocal pneumonia/healthcare associated pneumonia Stage IV sacral decubitus present on admission with ESBL organism Anemia of chronic disease Protein albumin discordance Thrombocytosis History of CVA Dysphagia G-tube Dementia Functional quadriplegia Cachexia with malnutrition Diabetes mellitus Proteinuria likely due to diabetes mellitus Allergies: Coded Allergies: CEFTRIAXONE (Verified Allergy, Unknown, 07/28/18) rash reaction Patient History Limited by: medical condition Past Medical History: see triage record, old chart reviewed Past Surgical History: other - g tube Social History Narrative DNR DNI Reviewed Nursing Documentation: PMH: Agreed; PSxH: Agreed Nursing Documentation-PMH Hx Cardiac Problems: No Hx Hypertension: Yes Hx Asthma: Yes Hx COPD: No Hx Diabetes: Yes Hx Cancer: No Hx Gastrointestinal Problems: Yes - GT Hx Dialysis: No Hx Neurological Problems: Yes - muscle weakness, Hx Cerebrovascular Accident: Yes Hx Dementia: Yes Hx Seizures: No Hx Weakness: Yes Review of Systems All Other Systems: limited Physical Exam Vital Signs Date Time Temp Pulse Resp B/P (MAP) Pulse Ox O2 Delivery O2 Flow Rate FiO2 07/27/18 17:12 99.9 122 28 122/59 98 Nasal Cannula 4.0 Sp02 EP Interpretation: reviewed, normal General Appearance: moderate distress, other - eyes open, not respond to external stimuli, Chronically Ill Eyes: bilateral eye normal inspection ENT: moist mucus membranes Neck: other - underlying rigidity Respiratory: respiratory distress, crackles, rales, rhonchi Cardiovascular #1: tachycardia Cardiovascular #2: 2+ radial (L) Gastrointestinal: soft, other - PEG tube outside of abd wall, holding by strip of skin, decreased bowel sounds Genitourinary: no CVA tenderness Musculoskeletal: other - extensor contractures LE, flexion contractures UE Neurologic: other - eyes open but unresponsive Psychiatric: other - min response to external stim Skin: other - sacral decubitus - stage 4 Medical Decision Making Diagnostic Impression: Primary Impression: HCAP (healthcare-associated pneumonia) Additional Impressions: PEG tube malfunction UTI (urinary tract infection) Qualified Codes: T83.511A - Infection and inflammatory reaction due to indwelling urethral catheter, initial encounter; N39.0 - Urinary tract infection , site not specified ER Course Patient for G tube replacement, however is febrile and resp distress. DDx: pneumonia, UTI, GItis, other source of infecton, electrolyte abnormalities, AMI amongst others. Evaluatoin with labs, EKG and CXR. Will attempt to replace G tube. Patient requires aggressive pulmonary toilet. Discussed with daughter. Wants admit for treatment of pneumonia. EKG with ST. CXR bilateral infiltrates. WBC elevated. CMP essentially normal. Pyuria. Lactate normal. Antibiotics begun. PEG tube was out of abdomen but held on by piece of tissue. Removed (was not in or through abdominal wall). Unable to place other G tube as the tract was not present. Improved with pulm toilet and IV hydration. Afebrile. Cap fill good. Mentation same, though less distress. Not hypotensive. Tachycardia improved. Seen by Dr. Franklin. Discussed with Dr. Wu. Admit med. Laboratory Tests Test 07/27/18 18:05 07/27/18 18:27 White Blood Count 12.4 K/UL (4.8-10.8) H Red Blood Count 3.55 M/UL (4.70-6.10) L Hemoglobin 9.3 G/DL (14.2-18.0) L Hematocrit 30.2 % (42.0-52.0) L Mean Corpuscular Volume 85 FL (80-99) Mean Corpuscular Hemoglobin 26.3 PG (27.0-31.0) L Mean Corpuscular Hemoglobin Concent 30.8 G/DL (32.0-36.0) L Red Cell Distribution Width 16.8 % (11.6-14.8) H Platelet Count 540 K/UL (150-450) H Mean Platelet Volume 6.6 FL (6.5-10.1) Neutrophils (%) (Auto) 71.5 % (45.0-75.0) Lymphocytes (%) (Auto) 13.3 % (20.0-45.0) L Monocytes (%) (Auto) 5.5 % (1.0-10.0) Eosinophils (%) (Auto) 8.6 % (0.0-3.0) H Basophils (%) (Auto) 1.1 % (0.0-2.0) Prothrombin Time 11.3 SEC (9.30-11.50) Prothrombin Time INR 1.1 (0.9-1.1) PTT 28 SEC (23-33) Sodium Level 141 MMOL/L (136-145) Potassium Level 4.5 MMOL/L (3.5-5.1) Chloride Level 103 MMOL/L (98-107) Carbon Dioxide Level 31 MMOL/L (21-32) Anion Gap 7 mmol/L (5-15) Blood Urea Nitrogen 29 mg/dL (7-18) H Creatinine 0.7 MG/DL (0.55-1.30) Estimate Glomerular Filtration Rate > 60 mL/min (>60) Glucose Level 154 MG/DL (74-106) H Lactic Acid Level 0.90 mmol/L (0.4-2.0) Calcium Level 9.7 MG/DL (8.5-10.1) Magnesium Level 2.0 MG/DL (1.8-2.4) Total Bilirubin 0.2 MG/DL (0.2-1.0) Aspartate Amino Transferase (AST) 17 U/L (15-37) Alanine Aminotransferase (ALT) 12 U/L (12-78) Alkaline Phosphatase 132 U/L (46-116) H Total Creatine Kinase 15 U/L (26-308) L Troponin I 0.000 ng/mL (0.000-0.056) Pro-B-Type Natriuretic Peptide 297 pg/mL (0-125) H Total Protein 11.0 G/DL (6.4-8.2) H Albumin 2.4 G/DL (3.4-5.0) L Globulin 8.6 g/dL Albumin/Globulin Ratio 0.3 (1.0-2.7) L Urine Color Margo Urine Appearance Turbid Urine pH 8 (4.5-8.0) Urine Specific [place] 1.015 (1.005-1.035) Urine Protein 2+ (NEGATIVE) H Urine Glucose (UA) Negative (NEGATIVE) Urine Ketones Negative (NEGATIVE) Urine Blood 5+ (NEGATIVE) H Urine Nitrite Positive (NEGATIVE) H Urine Bilirubin Negative (NEGATIVE) Urine Ictotest Negative (NEGATIVE) Urine Urobilinogen 1 MG/DL (0.0-1.0) H Urine Leukocyte Esterase 2+ (NEGATIVE) H Urine RBC 40-60 /HPF (0 - 0) H Urine WBC 10-15 /HPF (0 - 0) H Urine Squamous Epithelial Cells Occasional /LPF Urine Calcium Oxalate Crystals Many /LPF (NONE) Urine Bacteria Moderate /HPF (NONE) H EKG Diagnostic Results Rate: tachycardiac Rhythm: NSR ST Segments: no acute changes Rhythm Strip Diag. Results EP Interpretation: yes Rhythm: no PVC's, no ectopy, other - ST Chest X-Ray Diagnostic Results Chest X-Ray Diagnostic Results : Chest X-Ray Ordered: Yes # of Views/Limited/Complete: 1 View Indication: Shortness of Breath EP Interpretation: Yes Interpretation: no effusion, no pneumothorax, other - bilateral infiltrates Impression: Other Electronically Signed by: Nikko Kessler MD Last Vital Signs Date Time Temp Pulse Resp B/P (MAP) Pulse Ox O2 Delivery O2 Flow Rate FiO2 07/27/18 21:08 99.4 114 23 104/65 98 Non-Rebreather 15.0 Status: improved Disposition: ADMITTED INPATIENT Condition: Serious Referrals: Jamia Wu MD (PCP) Nikko Kessler MD Jul 27, 2018 19:31
[2018-07-27 21:08] VITALS: BP 104/65
--- NOTE | 2018-07-27 21:41 | Pulmonology Progress Note ---
Assessment/Plan Assessment/Plan Pulmonary Consultation Note Chief Complaint: Fever, dislodged G tube Patient is a frail elderly Senior Living resident admitted s/p dislodgement of G tube, worsening respiratory distress, felt to have possible aspiration pneumonia. Patient is DNAR/DNI with plan to transition to hospice PMH: Dementia, HTN, Asthma, Previous CVA, s/p G tube Allergies: CEFTRIAXONE (Verified Allergy, Unknown, 04/04/18) Physical Exam Vital Signs Noted Elderly wasted man, contarctures, chronically ill appearing HEENT: NCAT, dry MM, JVP not elevated Chest: bilateral rhonchi Heart: HS1, HS2 RRR Abdo: Soft, ND, NT, G tube site appears infected Extrem: Wasted, no edema NURSE OB: Generally weak, no response to command, no seizures Last Vital Signs Date Time Temp Pulse Resp B/P (MAP) Pulse Ox O2 Delivery O2 Flow Rate FiO2 07/27/18 17:23 101.0 116 21 112/81 98 Nasal Cannula 4.0 Impression: GTube dislodgement, with possible cellulitis Aspiration Pneumonia Dementia HTN Asthma Previous CVA DNR/DNI Plan: IV Zosyn, Vanco, levaquin IVF HHN/CPT Q6 Aspiration precautions Pain meds Comfort meds Await reinsertion G-tube by GI O2 PRN SQ Heparin Labs CXR Subjective ROS Limited/Unobtainable: Yes Allergies: Coded Allergies: CEFTRIAXONE (Verified Allergy, Unknown, 04/04/18) Objective Last 24 Hour Vital Signs Date Time Temp Pulse Resp B/P (MAP) Pulse Ox O2 Delivery O2 Flow Rate FiO2 07/27/18 21:08 99.4 114 23 104/65 98 Non-Rebreather 15.0 07/27/18 17:23 101.0 116 21 112/81 98 Nasal Cannula 4.0 07/27/18 17:23 116 21 Nasal Cannula 4.0 07/27/18 17:12 99.9 122 28 122/59 98 Nasal Cannula 4.0 Laboratory Tests 07/27/18 18:05: White Blood Count 12.4H, Red Blood Count 3.55L, Hemoglobin 9.3L, Hematocrit 30.2L, Mean Corpuscular Volume 85, Mean Corpuscular Hemoglobin 26.3L, Mean Corpuscular Hemoglobin Concent 30.8L, Red Cell Distribution Width 16.8H, Platelet Count 540H, Mean Platelet Volume 6.6, Neutrophils (%) (Auto) 71.5, Lymphocytes (%) (Auto) 13.3L, Monocytes (%) (Auto) 5.5, Eosinophils (%) (Auto) 8.6H, Basophils (%) (Auto) 1.1, Prothrombin Time 11.3, Prothromb Time International Ratio 1.1, Activated Partial Thromboplast Time 28, Sodium Level 141, Potassium Level 4.5, Chloride Level 103, Carbon Dioxide Level 31, Anion Gap 7, Blood Urea Nitrogen 29H, Creatinine 0.7, Estimat Glomerular Filtration Rate > 60, Glucose Level 154H, Lactic Acid Level 0.90, Calcium Level 9.7, Magnesium Level 2.0, Total Bilirubin 0.2, Aspartate Amino Transf (AST/SGOT) 17, Alanine Aminotransferase (ALT/SGPT) 12, Alkaline Phosphatase 132H, Total Creatine Kinase 15L, Troponin I 0.000, Pro-B-Type Natriuretic Peptide 297H, Total Protein 11.0H, Albumin 2.4L, Globulin 8.6, Albumin/Globulin Ratio 0.3L 07/27/18 18:27: Urine Color Margo, Urine Appearance Turbid, Urine pH 8, Urine Specific [place] 1.015, Urine Protein 2+H, Urine Glucose (UA) Negative, Urine Ketones Negative, Urine Blood 5+H, Urine Nitrite PositiveH, Urine Bilirubin Negative, Urine Ictotest Negative, Urine Urobilinogen 1H, Urine Leukocyte Esterase 2+H, Urine RBC 40-60H, Urine WBC 10-15H, Urine Squamous Epithelial Cells Occasional, Urine Calcium Oxalate Crystals Many, Urine Bacteria ModerateH Nikko Franklin MD Jul 27, 2018 21:41
[2018-07-28] VITALS: BP 106/65
[2018-07-28] MEDS ORDERED: IPRATROPIU0.2 MG/1 M HHN (00:42)
[2018-07-28] MEDS ORDERED: ACETAMINOP160 MG/5 M GT (00:42)
[2018-07-28] MEDS ORDERED: FERROUS SU220 MG/53 GT (00:42)
[2018-07-28] MEDS ORDERED: HYDROCORTISONE-30 GM TOPIC (00:42)
[2018-07-28] MEDS ORDERED: SILVADENE20 GM TP (00:42)
[2018-07-28] MEDS ORDERED: Acetaminophen 650 MG SUPP RECTAL PRN (01:00)
[2018-07-28] MEDS ORDERED: Morphine Sulfate 2mg/ml Inj IVP PRN (01:00)
[2018-07-28] MEDS: D5NS 1,000 ML IV SCH ×2 (02:00→18:47)
[2018-07-28] MEDS ORDERED: Zosyn 3.375gm inj ONE (03:46)
[2018-07-28 04:00] VITALS: BP 100/65
[2018-07-28] MEDS ORDERED: Vancomycin 500mg in D5W 275ml IVPB SCH (04:00)
[2018-07-28] MEDS: Ipratropium 0.02% Inh Soln 2.5ml UD HHN SCH ×5 (04:01→23:42)
[2018-07-28] MEDS ORDERED: Piperacillin/Tazobactam 3.375 GM in D5W 110 ML IVPB SCH (06:00)
[2018-07-28 08:00] VITALS: BP 124/61
[2018-07-28] MEDS: Heparin 5000 units/ml inj SUBQ SCH ×2 (09:44→21:36)
--- NOTE | 2018-07-28 10:13 | Diagnostic Imaging Report ---
Indication: Chest pain Technique: One view of the chest Comparison: 07/09/2018 Findings: Bilateral interstitial disease with reticular and nodular opacities appears similar to the prior exam. No new infiltrates. Pleural spaces are clear. The heart size is normal Impression: Bilateral mostly interstitial parenchymal disease. This is similar to the previous study, most likely represents chronic interstitial fibrotic changes. However, superimposed acute interstitial process is also possible. Correlation with clinical findings is recommended
--- NOTE | 2018-07-28 10:57 | GI Initial Consult Note ---
History of Present Illness General Date patient seen: Jul 28, 2018 Time patient seen: 12:28 Reason for Hospitalization: Fever Referring physician: SANDY SILVESTRE Reason for Consultation: GT REPLACEMENT Present Illness HPI This is a 68-year-old male patient was admitted for noted fever. In addition was noted that the patient's G-tube was dislodged. The ED doctor unable to replace the G-tube at bedside. ROS limited, all information obtained from medical record and chart. The patient was seen, awake alert no apparent distress. G-tube site was noted with G tube removed, stoma site not fully healed with minimal amounts of drainage. labs reviewed; patient presents with mild leukocytosis and anemia, elevated alkaline phosphatase. Home Meds Reported Medications Silver Sulfadiazine (SILVADENE) 20 Gm Cream..g., 20 GM TP DAILY, GM 07/28/18 Ipratropium [place] 0.5MG/2.5ML (IPRATROPIUM BROMIDE 0.5MG/2.5ML) 0.2 Mg/1 Ml Solution, 0.5 MG HHN Q6H, #28 EA 07/28/18 Hydrocortisone/Aloe Vera 1%* (HYDROCORTISONE-ALOE 1% CREAM*) Y Cr, 1 APPLIC TOPIC DAILY, #30 GM 07/28/18 Ferrous Sulfate (Ferrous Sulfate) 220 Mg/5 Ml Elixir, 7.5 ML GT TID, ML 07/28/18 Acetaminophen 160MG/5ML* (ACETAMINOPHEN*) 160 Mg/5 Ml Elixir, 20 ML GT EVERY 4 HOURS PRN for Fever/Headache/Mild Pain, ML 07/28/18 Heparin Sod (Porcine) (HEPARIN SODIUM*) 5 000/1 Ml Vial, 5000 UNITS SUBQ EVERY 12 HOURS, VIAL 07/18/18 Zinc Sulfate (ZINC SULFATE*) 220 Mg Capsule, 220 MG GT DAILY, CAP 0 Refills 06/16/18 Insulin Detemir (LEVEMIR FLEXPEN) 100 Unit/1 Ml Insuln.pen, 6 UNITS SUBQ BID, # 300 UNITS 0 Refills 06/16/18 Sitagliptin* (JANUVIA*) 25 Mg Tablet, 100 MG GT DAILY, TAB 06/16/18 Metformin Hcl* (METFORMIN HCL*) 850 Mg Tablet, 850 MG GT DAILY, TAB 05/29/18 Loratadine (LORATADINE) 10 Mg Tab.rapdis, 10 MG GT DAILY, TAB 05/29/18 Aspirin* (ASPIR 81*) 81 Mg Tablet.dr, 81 MG GT DAILY, TAB 05/29/18 Amlodipine Besylate* (AMLODIPINE BESYLATE*) 10 Mg Tablet, 10 MG GT DAILY, TAB 05/29/18 Ascorbic Acid* (VITAMIN C*) 500 Mg Tablet, 500 MG GT BID, #30 TAB 0 Refills 04/04/18 Multivitamin With Minerals (MULTIVITAMINS WITH MINERALS*) 1 Each Tablet, 1 TAB GT DAILY, TAB 04/04/18 Ipratropium [place] 0.5MG/2.5ML (IPRATROPIUM BROMIDE 0.5MG/2.5ML) 0.2 Mg/1 Ml Solution, 0.5 MG HHN Q4HR PRN for Shortness of Breath, #28 EA 04/04/18 Insulin Aspart* (NOVOLOG*) 100 Unit/1 Ml Insuln.pen, 0 SUBQ EVERY 6 HOURS, #1 EA 0 Refills 04/04/18 Dutasteride (AVODART) 0.5 Mg Capsule, 0.5 MG GT DAILY, CAP 04/04/18 Donepezil HCl (Aricept) 5 Mg Tablet, 10 MG GT BEDTIME, MG 04/04/18 Cranberry Extract (CRANBERRY EXTRACT) 1 Gm Powder, 425 MG GT BID, GM 04/04/18 Arginine/Ascorbate Sod/Abigail AC (Arginaid Powder) 1 Each Powd.pack, 1 EACH GT BID , PACK 04/04/18 Med list reviewed/reconciled: Yes Allergies: Coded Allergies: CEFTRIAXONE (Verified Allergy, Unknown, 04/04/18) Patient History Limited by: medical condition History Provided By: Medical Record [facility] Narrative History of decubitus ulcers multiple, history of hypertension, history of NIDDM , BPH, dementia, and iron-deficiency anemia. Hx Cardiac Problems: No Hx Hypertension: Yes Hx Asthma: Yes Hx COPD: No Hx Diabetes: Yes Hx Cancer: No Hx Gastrointestinal Problems: Yes - GT Hx Dialysis: No Hx Neurological Problems: Yes - muscle weakness, Hx Cerebrovascular Accident: Yes Hx Dementia: Yes Hx Seizures: No Review of Systems All Other Systems: limited Physical Exam Vital Signs Date Time Temp Pulse Resp B/P (MAP) Pulse Ox O2 Delivery O2 Flow Rate FiO2 07/27/18 17:12 99.9 122 28 122/59 98 Nasal Cannula 4.0 07/28/18 04:01 100 Sp02 EP Interpretation: reviewed, normal Labs Laboratory Tests Test 07/27/18 18:05 07/27/18 18:27 White Blood Count 12.4 K/UL (4.8-10.8) H Red Blood Count 3.55 M/UL (4.70-6.10) L Hemoglobin 9.3 G/DL (14.2-18.0) L Hematocrit 30.2 % (42.0-52.0) L Mean Corpuscular Volume 85 FL (80-99) Mean Corpuscular Hemoglobin 26.3 PG (27.0-31.0) L Mean Corpuscular Hemoglobin Concent 30.8 G/DL (32.0-36.0) L Red Cell Distribution Width 16.8 % (11.6-14.8) H Platelet Count 540 K/UL (150-450) H Mean Platelet Volume 6.6 FL (6.5-10.1) Neutrophils (%) (Auto) 71.5 % (45.0-75.0) Lymphocytes (%) (Auto) 13.3 % (20.0-45.0) L Monocytes (%) (Auto) 5.5 % (1.0-10.0) Eosinophils (%) (Auto) 8.6 % (0.0-3.0) H Basophils (%) (Auto) 1.1 % (0.0-2.0) Prothrombin Time 11.3 SEC (9.30-11.50) Prothromb Time International Ratio 1.1 (0.9-1.1) Activated Partial Thromboplast Time 28 SEC (23-33) Sodium Level 141 MMOL/L (136-145) Potassium Level 4.5 MMOL/L (3.5-5.1) Chloride Level 103 MMOL/L (98-107) Carbon Dioxide Level 31 MMOL/L (21-32) Anion Gap 7 mmol/L (5-15) Blood Urea Nitrogen 29 mg/dL (7-18) H Creatinine 0.7 MG/DL (0.55-1.30) Estimat Glomerular Filtration Rate > 60 mL/min (>60) Glucose Level 154 MG/DL (74-106) H Lactic Acid Level 0.90 mmol/L (0.4-2.0) Calcium Level 9.7 MG/DL (8.5-10.1) Magnesium Level 2.0 MG/DL (1.8-2.4) Total Bilirubin 0.2 MG/DL (0.2-1.0) Aspartate Amino Transf (AST/SGOT) 17 U/L (15-37) Alanine Aminotransferase (ALT/SGPT) 12 U/L (12-78) Alkaline Phosphatase 132 U/L (46-116) H Total Creatine Kinase 15 U/L (26-308) L Troponin I 0.000 ng/mL (0.000-0.056) Pro-B-Type Natriuretic Peptide 297 pg/mL (0-125) H Total Protein 11.0 G/DL (6.4-8.2) H Albumin 2.4 G/DL (3.4-5.0) L Globulin 8.6 g/dL Albumin/Globulin Ratio 0.3 (1.0-2.7) L Urine Color Margo Urine Appearance Turbid Urine pH 8 (4.5-8.0) Urine Specific [place] 1.015 (1.005-1.035) Urine Protein 2+ (NEGATIVE) H Urine Glucose (UA) Negative (NEGATIVE) Urine Ketones Negative (NEGATIVE) Urine Blood 5+ (NEGATIVE) H Urine Nitrite Positive (NEGATIVE) H Urine Bilirubin Negative (NEGATIVE) Urine Ictotest Negative (NEGATIVE) Urine Urobilinogen 1 MG/DL (0.0-1.0) H Urine Leukocyte Esterase 2+ (NEGATIVE) H Urine RBC 40-60 /HPF (0 - 0) H Urine WBC 10-15 /HPF (0 - 0) H Urine Squamous Epithelial Cells Occasional /LPF Urine Calcium Oxalate Crystals Many /LPF (NONE) Urine Bacteria Moderate /HPF (NONE) H General Appearance: well appearing, no apparent distress, alert, thin Head: normocephalic EENT: PERRL/EOMI, normal ENT inspection Neck: supple Respiratory: normal breath sounds, no respiratory distress Cardiovascular: normal rate Gastrointestinal: normal inspection, non tender, soft, normal bowel sounds, non -distended, gt - see HPI Rectal: deferred Genitourinary: deferred Musculoskeletal: normal inspection, back normal Neurologic: alert Skin: normal inspection, normal color, no rash, warm/dry, palpation normal, well hydrated Lymphatic: normal inspection, no adenopathy Current Medications Current Medications Medications (Trade) Dose Ordered Sig/Briseida Route PRN Reason Start Time Stop Time Status Last Admin Dose Admin Acetaminophen (Tylenol) 650 mg Q6HR PRN RECTAL fever T>100.5 07/28/18 01:00 08/27/18 00:59 Dextrose/Sodium Chloride 1,000 ml @ 60 mls/hr [id number] IV 07/28/18 01:00 08/27/18 00:59 07/28/18 02:00 Heparin Sodium (Porcine) (Heparin 5000 units/ml) 5,000 units EVERY 12 HOURS SUBQ 07/28/18 09:00 08/27/18 08:59 07/28/18 09:44 Ipratropium [place] (Atrovent) 500 mcg Q6HRT HHN 07/27/18 22:15 08/01/18 22:14 07/28/18 08:14 Levofloxacin 100 ml @ 100 mls/hr Q24H IVPB 07/28/18 18:00 08/04/18 17:59 Morphine Sulfate (Morphine Sulfate) 2 mg Q6H PRN IVP For severe pain 07/28/18 01:00 08/04/18 00:59 Ondansetron HCl (Zofran) 4 mg Q8H PRN IVP Nausea & Vomiting 07/28/18 01:00 08/27/18 00:59 Piperacillin Sod/ Tazobactam Sod 3.375 gm/Dextrose 110 ml @ 27.5 mls/hr Q8HR IVPB 07/28/18 14:00 08/04/18 13:59 Vancomycin HCl (Vanco rx to dose) 1 ea DAILY PRN MISC Per rx protocol 07/28/18 01:00 08/27/18 00:59 Vancomycin/Sodium Chloride 250 ml @ 166.667 mls/hr Q24H IVPB 07/28/18 18:00 08/02/18 17:59 GI: Plan Problems: (1) Dysphagia (2) Severe malnutrition (3) PEG tube malfunction (4) Anemia Plan PEG to be scheduled. maintain NPO + IVFs anemia work up OB stool r/o GI bleed monitor H&H, prn transfusions bowel regime ppi fu labs will follow with additional recs post procedure Discussed with Dr. Borja. Thank you for this patient referral, we will follow. Anthony Andres TECHNICAL SERVICE REP Jul 28, 2018 10:57
[2018-07-28 12:00] VITALS: BP 103/63
[2018-07-28] MEDS: Piperacillin/Tazobactam 3.375 GM in D5W 110 ML IVPB SCH ×2 (14:17→21:36)
[2018-07-28 16:00] VITALS: BP 110/66
[2018-07-28] MEDS: Vancomycin 750mg/NS 250ml IVPB SCH (18:47)
[2018-07-28 20:00] VITALS: BP 96/68
--- NOTE | 2018-07-28 22:00 | Consultation ---
DATE OF CONSULTATION: 07/28/2018 INFECTIOUS DISEASE CONSULTATION CONSULTING PHYSICIAN: Herson Palmer M.D. PRIMARY ATTENDING: Jamia Wu M.D. REASON FOR CONSULT: Sepsis, infection of G-tube site. HISTORY OF PRESENT ILLNESS: This is a 68-year-old male admitted last evening from nursing facility because of dislodgement of the G-tube. The patient is known to me from previous admission. He had multiple admissions for pneumonia and also has some structural lung disease. The patient had fever of 101 in the hospital and has leukocytosis of 12.4. An attempt by ER doctor to replace G-tube was unsuccessful and the patient was arranged for EGD and PEG replacement. PAST MEDICAL HISTORY: Significant for advanced dementia with aphasia, diabetes mellitus, hypertension, pressure ulcers in sacral and hip area, has history of CVA, and has history of VRE colonization. ALLERGIES: Allergic to ceftriaxone, but tolerated Zosyn on previous admission. MEDICATIONS: Getting Levaquin, vancomycin, Zosyn, heparin, morphine, Tylenol, Zofran, and Atrovent. SOCIAL HISTORY: [facility] resident. He has a daughter who is next of kin. No recent history of alcohol, drug abuse, or smoking. The patient is bedbound with poor mental and functional status. REVIEW OF SYSTEMS: Unobtainable. PHYSICAL EXAMINATION: VITAL SIGNS: Temperature 98.6, pulse 94, and blood pressure 103/66. GENERAL: No acute distress. The patient is cachectic, underweight. HEAD AND NECK: Excel conjunctivae. HEART: Normal rate. LUNGS: Bilateral rhonchi. ABDOMEN: Soft. There is some erythema of the skin around previous G-tube site. EXTREMITIES: He has no edema. SKIN: He has pressure ulcers which compared to previous admissions are healing. LABORATORY AND DIAGNOSTIC DATA: Sodium 141, potassium 4.5, chloride 103, bicarbonate 31, BUN 29, creatinine 0.7, and glucose 154. LFT were in normal limit except albumin that is 2.4. UA showed rbc of 40-60, leukocyte esterase 2+, nitrite positive, wbc 10-15; urine culture is pending. Chest x-ray, no significant change of bilateral interstitial parenchymal disease compared to the previous x-ray. IMPRESSION: Sepsis with fever and leukocytosis,seems to have had abdominal wall cellulitis, cannot rule out pneumonia also. He has advanced dementia and aphasia. The patient is DNR status. He has diabetes mellitus, hypertension, cachexia, decreased albumin, and pressure ulcers. RECOMMENDATION: We will continue with vancomycin and Zosyn. May discontinue Levaquin. At the end of my exam, I thank Dr. Wu for allowing me in the care of this patient. Herson Palmer M.D. DR: ENOC JOB#: [id number] CC:
--- NOTE | 2018-07-28 23:00 | History and Physical Report ---
DATE OF ADMISSION: 07/27/2018 HISTORY OF PRESENT ILLNESS: The patient is admitted because the G-tube has dislodged and removed. The daughter wanted it to be replaced and the ER doctor could not replace it. The patient is also septic due to pneumonia. However, the patient's daughter is in the process of getting to send the patient into hospice [facility] Dr. Borja has been consulted as well as Dr. Palmer and Dr. Buckley for the treatment of pneumonia and UTI and sepsis. The patient has recurrent admissions for the same problem. The patient also has dehydration and nonverbal. Unable to obtain history at this point. PAST MEDICAL HISTORY: Advanced dementia, history of UTI, pneumonia, history of prostate cancer, iron-deficiency anemia, NIDDM, and history of multiple decubitus. PAST SURGICAL HISTORY: PEG, history of I and D of the wound. ALLERGIES: Ceftriaxone. MEDICATIONS: Norvasc, benazepril, Avodart, sulfate, insulin, breathing treatment, metformin, Januvia, and zinc. FAMILY HISTORY: Unable to obtain. SOCIAL HISTORY: Unable to obtain. REVIEW OF SYSTEMS: Unable to obtain as the patient is nonverbal. PHYSICAL EXAMINATION: VITAL SIGNS: Temperature 97.8 degrees, pulse is 89, and blood pressure 124/61. HEENT: PERRLA. NECK: Supple. No lymphadenopathy. LUNGS: Bibasilar rales. CARDIOVASCULAR: Regular rate and rhythm. ABDOMEN: Soft. G-tube is out. SKIN: For skin integrity and decubitus, please refer to the nursing notes. NEUROLOGIC: Alert and oriented x0, grimaces to noxious stimuli. LABORATORY DATA: Indicated of UTI. WBC of 12.4, hemoglobin 9.3, and platelets 540,000. Sodium 141, potassium 4.5, BUN of 29, creatinine 0.7, and glucose of 154. IMAGING DATA: Chest x-ray shows bilateral interstitial parenchymal lung disease. ASSESSMENT: 1. Sepsis. 2. Pneumonia. 3. Urinary tract infection. 4. G-tube is removed. 5. Dehydration. PLAN: I have asked Dr. Dwyer, Dr. Palmer, Dr. Buckley, and Dr. Borja to see the patient for the treatment of the sepsis and UTI. for replacement of the PEG as well as for the treatment of pneumonia and dehydration. Ali Mignon Wu DR: ELLI JOB#: [id number] CC:
--- NOTE | 2018-07-28 23:16 | Pulmonology Progress Note ---
Assessment/Plan Assessment/Plan Pulmonary Progress Note Chief Complaint: Fever, dislodged G tube Patient is a frail elderly [facility] resident admitted s/p dislodgement of G tube, worsening respiratory distress, felt to have possible aspiration pneumonia. Patient is DNAR/DNI with plan to transition to hospice PMH: Dementia, HTN, Asthma, Previous CVA, s/p G tube Allergies: CEFTRIAXONE (Verified Allergy, Unknown, 04/04/18) Physical Exam Vital Signs Noted Elderly wasted man, contarctures, chronically ill appearing HEENT: NCAT, dry MM, JVP not elevated Chest: bilateral rhonchi Heart: HS1, HS2 RRR Abdo: Soft, ND, NT, G tube site appears infected Extrem: Wasted, no edema [employer]ILL[employer] WORK[employer] GENERAL: Generally weak, no response to command, no seizures Last Vital Signs Date Time Temp Pulse Resp B/P (MAP) Pulse Ox O2 Delivery O2 Flow Rate FiO2 07/27/18 17:23 101.0 116 21 112/81 98 Nasal Cannula 4.0 Impression: GTube dislodgement, with possible cellulitis Aspiration Pneumonia Dementia HTN Asthma Previous CVA DNR/DNI Plan: IV Zosyn, Vanco, levaquin IVF HHN/CPT Q6 Aspiration precautions Pain meds Comfort meds Await reinsertion G-tube by GI O2 PRN SQ Heparin Labs CXR Subjective ROS Limited/Unobtainable: No Allergies: Coded Allergies: CEFTRIAXONE (Verified Allergy, Unknown, 07/28/18) rash reaction Objective Last 24 Hour Vital Signs Date Time Temp Pulse Resp B/P (MAP) Pulse Ox O2 Delivery O2 Flow Rate FiO2 07/28/18 21:00 Nasal Cannula 2.0 07/28/18 20:12 87 22 96 Venturi Mask 12.0 50 07/28/18 20:05 89 22 96 Venturi Mask 12.0 50 07/28/18 20:00 99.3 87 20 96/68 (77) 99 07/28/18 16:00 98.4 95 18 110/66 (81) 98 07/28/18 14:50 95 21 97 Venturi Mask 12.0 50 07/28/18 14:39 92 24 92 Venturi Mask 12.0 50 07/28/18 12:00 98.6 94 18 103/63 (76) 99 07/28/18 09:00 Nasal Cannula 2.0 07/28/18 08:24 92 20 98 Venturi Mask 10.0 55 07/28/18 08:14 88 18 99 Venturi Mask 10.0 55 07/28/18 08:00 97.8 89 18 124/61 (82) 100 07/28/18 04:14 94 18 100 Non-Rebreather 15.0 100 07/28/18 04:01 91 18 Non-Rebreather 15.0 100 07/28/18 04:01 91 18 100 Non-Rebreather 15.0 100 07/28/18 04:00 97.8 91 18 100/65 (77) 07/28/18 01:18 Non-Rebreather 15.0 07/28/18 00:00 97.8 100 17 106/65 (79) 98 Intake and Output 07/27/18 07/28/18 19:00 07:00 Intake Total 575 ml Output Total 1000 ml Balance -425 ml Intake IV Total 575 ml Output Urine Total 1000 ml Microbiology Date/Time Source Procedure Growth Status 07/27/18 18:27 Urine,Clean Catch Urine Culture - Preliminary Resulted Current Medications Medications (Trade) Dose Ordered Sig/Briseida Route PRN Reason Start Time Stop Time Status Last Admin Dose Admin Acetaminophen (Tylenol) 650 mg Q6HR PRN RECTAL fever T>100.5 07/28/18 01:00 08/27/18 00:59 Dextrose/Sodium Chloride 1,000 ml @ 60 mls/hr [id number] IV 07/28/18 01:00 08/27/18 00:59 07/28/18 18:47 Heparin Sodium (Porcine) (Heparin 5000 units/ml) 5,000 units EVERY 12 HOURS SUBQ 07/28/18 09:00 08/27/18 08:59 07/28/18 21:36 Ipratropium [place] (Atrovent) 500 mcg Q6HRT HHN 07/27/18 22:15 08/01/18 22:14 07/28/18 20:05 Morphine Sulfate (Morphine Sulfate) 2 mg Q6H PRN IVP For severe pain 07/28/18 01:00 08/04/18 00:59 Ondansetron HCl (Zofran) 4 mg Q8H PRN IVP Nausea & Vomiting 07/28/18 01:00 08/27/18 00:59 Piperacillin Sod/ Tazobactam Sod 3.375 gm/Dextrose 110 ml @ 27.5 mls/hr Q8HR IVPB 07/28/18 14:00 08/04/18 13:59 07/28/18 21:36 Vancomycin HCl (Vanco rx to dose) 1 ea DAILY PRN MISC Per rx protocol 07/28/18 01:00 08/27/18 00:59 Vancomycin/Sodium Chloride 250 ml @ 166.667 mls/hr Q24H IVPB 07/28/18 18:00 08/02/18 17:59 07/28/18 18:47 Nikko Franklin MD Jul 28, 2018 23:16
[2018-07-29] VITALS (11 sets, daily range): BP systolic 99–125; BP diastolic 64–89
[2018-07-29] MEDS: Piperacillin/Tazobactam 3.375 GM in D5W 110 ML IVPB SCH ×3 (05:26→20:44)
--- NOTE | 2018-07-29 06:38 | Anethesia Preoperative Eval ---
Anesthesia Pre-op PMH/ROS General Date of Evaluation: Jul 29, 2018 Time of Evaluation: 06:32 Anesthesiologist: elmer ASA Score: ASA 4 Mallampati Score Class I : Soft palate, uvula, fauces, pillars visible Class II: Soft palate, uvula, fauces visible Class III: Soft palate, base of uvula visible Class IV: Only hard plate visible Mallampati Classification: Class II Surgeon: sue Diagnosis: severe malnutrition, peg malfunction Surgical Procedure: peg placement Anesthesia History: none Social History: smoking - nonsmoker Family History: no anesthesia problems Allergies: Coded Allergies: CEFTRIAXONE (Verified Allergy, Unknown, 07/28/18) rash reaction Medications: see eMAR Patient NPO?: Yes Past Medical History Cardiovascular: Reports: HTN Pulmonary: Reports: asthma, other - pneumonia Gastrointestinal/Genitourinary: Reports: GERD, other - uti Neurologic/Psychiatric: Reports: CVA, other - encephalopathy, quadriplegia, dnr Endocrine: Reports: DM Hematology/Immune: Reports: anemia, other - sepsis Musculoskeletal/Integumentary: Reports: other - cachexia, decubitus ulcers left hip Anesthesia Pre-op Phys. Exam Physician Exam Last Vital Signs Date Time Temp Pulse Resp B/P (MAP) Pulse Ox O2 Delivery O2 Flow Rate FiO2 07/29/18 04:00 97.6 81 18 106/68 (81) 100 07/28/18 23:52 Nasal Cannula 3.0 32 Constitutional: NAD Neurologic: other - cva Cardiovascular: RRR Respiratory: CTA Gastrointestinal: S/NT/ND, other - stoma closed Airway Exam Mallampati Score: Class II MO: limited Neck: decreased flexibility TMD: 2fb ROM: limited Teeth: missing Anesthesia Pre-op A/P Risk Assessment & Plan Assessment: asa4 Plan: mac Status Change Before Surgery: No Pre-Antibiotics Drug: Lori Gloria MD Jul 29, 2018 06:38
[2018-07-29] MEDS ORDERED: fentaNYL 100 mcg/2 mL IV PRN (06:45)
[2018-07-29] MEDS ORDERED: Midazolam 2mg/2ml Inj IVP PRN (06:45)
[2018-07-29] MEDS ORDERED: Atropine Inj 1mg/10ml Syr IV PRN (06:45)
[2018-07-29] MEDS ORDERED: DiphenhydrAMINE 50mg/ml Inj IVP PRN (06:45)
[2018-07-29 07:13] LABS: HEMATOCRIT 26.6 % (42.0-52.0); HEMOGLOBIN 8.1 G/DL (14.2-18.0); MEAN CORPUSCULAR VOLUME 86 FL (80-99); PLATELET COUNT 462 K/UL (150-450); RED BLOOD COUNT 3.08 M/UL (4.70-6.10); RED CELL DISTRIBUTION WIDTH 16.9 % (11.6-14.8); WHITE BLOOD COUNT 7.9 K/UL (4.8-10.8)
[2018-07-29 07:24] LABS: INR 1.1 (0.9-1.1)
[2018-07-29] MEDS: Ipratropium 0.02% Inh Soln 2.5ml UD HHN SCH ×3 (07:54→20:13)
[2018-07-29 07:56] LABS: % IRON SATURATION 23 % (15-50); IRON 27 ug/dL (50-175); TOTAL IRON BINDING CAPACITY 120 ug/dL (250-450)
[2018-07-29 08:16] LABS: ALANINE AMINOTRANSFERASE 14 U/L (12-78); ALBUMIN 2.1 G/DL (3.4-5.0); ALBUMIN/GLOBULIN RATIO 0.3 (1.0-2.7); ALKALINE PHOSPHATASE 89 U/L (46-116); ANION GAP 8 mmol/L (5-15); ASPARTATE AMINO TRANSFERASE 16 U/L (15-37); BILIRUBIN,TOTAL 0.3 MG/DL (0.2-1.0); BLOOD UREA NITROGEN 15 mg/dL (7-18); CALCIUM 9.2 MG/DL (8.5-10.1); CARBON DIOXIDE 28 MMOL/L (21-32); CHLORIDE 105 MMOL/L (98-107); CREATININE 0.6 MG/DL (0.55-1.30); FERRITIN 292 NG/ML (8-388); POTASSIUM 3.8 MMOL/L (3.5-5.1); SODIUM 141 MMOL/L (136-145)
[2018-07-29] MEDS: Heparin 5000 units/ml inj SUBQ SCH ×2 (08:56→20:41)
[2018-07-29] MEDS: D5NS 1,000 ML IV SCH (10:27)
--- NOTE | 2018-07-29 11:55 | Pre-Procedure Note/Attestation ---
Pre-Procedure Note/Attestation Complete Prior to Procedure Planned Procedure: not applicable Procedure Narrative: egd/peg Indications for Procedure Pre-Operative Diagnosis: dysphagia Attestation I attest that I discussed the nature of the procedure; its benefits; risks and complications; and alternatives (and the risks and benefits of such alternatives ), prior to the procedure, with the patient (or the patient's legal operations representative). I attest that, if there was a reasonable possibility of needing a blood transfusion, the patient (or the patient's legal operations representative) was given the [facility] standardized written summary, pursuant to the Clarence Nadir Blood Safety Act ([place] Health and Safety Code # 1645, as amended). I attest that I re-evaluated the patient just prior to the surgery and that there has been no change in the patient's H&P, except as documented below: Beau Borja MD Jul 29, 2018 11:55
--- NOTE | 2018-07-29 12:04 | Endoscopy Procedure Note ---
Endoscopy Procedure Note General Indication for Procedure: dysphagia Procedures Performed: EGD, PEG Operative Findings/Diagnosis: same Specimen: none Pt Tolerated Procedure Well: Yes Estimated Blood Loss: none Anesthesia Anesthesiologist: elmer Anesthesia: MAC Inserted Devices Implant(s) used?: No GI Core Measures 50 yrs or older w/o bx or poly: Not Applicable 10yrs. F/U not recommended: Not Applicable Beau Borja MD Jul 29, 2018 12:04
--- NOTE | 2018-07-29 12:39 | Consultation ---
History of Present Illness General Date patient seen: Jul 28, 2018 Chief Complaint: Fever Referring physician: SANDY SILVESTRE Reason for Consultation: GT REPLACEMENT Present Illness HPI 68-year-old male admitted last evening from nursing facility because of dislodgement of the G-tube. The patient is known to me from previous admission. the pt is disorganized and disoriented the pt is unable to provide hx. the pt is at times agitated. Allergies: Coded Allergies: CEFTRIAXONE (Verified Allergy, Unknown, 07/28/18) rash reaction Medication History Scheduled Amlodipine Besylate* (Amlodipine Besylate*), 10 MG GT DAILY, (Reported) Arginine/Ascorbate Sod/Abigail AC (Arginaid Powder), 1 EACH GT BID, (Reported) Ascorbic Acid* (Vitamin C*), 500 MG GT BID, (Reported) Aspirin* (Aspir 81*), 81 MG GT DAILY, (Reported) Cranberry Extract (Cranberry Extract), 425 MG GT BID, (Reported) Donepezil HCl (Aricept), 10 MG GT BEDTIME, (Reported) Dutasteride (Avodart), 0.5 MG GT DAILY, (Reported) Ferrous Sulfate (Ferrous Sulfate), 7.5 ML GT TID, (Reported) Heparin Sod (Porcine) (Heparin Sodium*), 5,000 UNITS SUBQ EVERY 12 HOURS, ( Reported) Hydrocortisone/Aloe Vera 1%* (Hydrocortisone-Aloe 1% Cream*), 1 APPLIC TOPIC DAILY, (Reported) Insulin Aspart* (Novolog*), 0 SUBQ EVERY 6 HOURS, (Reported) Insulin Detemir (Levemir Flexpen), 6 UNITS SUBQ BID, (Reported) Ipratropium Pride 0.5MG/2.5ML (Ipratropium Pride 0.5MG/2.5ML), 0.5 MG HHN Q6H, (Reported) Loratadine (Loratadine), 10 MG GT DAILY, (Reported) Metformin Hcl* (Metformin Hcl*), 850 MG GT DAILY, (Reported) Multivitamin With Minerals (Multivitamins With Minerals*), 1 TAB GT DAILY, ( Reported) Silver Sulfadiazine (Silvadene), 20 GM TP DAILY, (Reported) Sitagliptin* (Januvia*), 100 MG GT DAILY, (Reported) Zinc Sulfate (Zinc Sulfate*), 220 MG GT DAILY, (Reported) Scheduled PRN Acetaminophen 160MG/5ML* (Acetaminophen*), 20 ML GT EVERY 4 HOURS PRN for Fever/ Headache/Mild Pain, (Reported) Ipratropium Pride 0.5MG/2.5ML (Ipratropium Pride 0.5MG/2.5ML), 0.5 MG HHN Q4HR PRN for Shortness of Breath, (Reported) Patient History Limited by: medical condition History Provided By: Medical Record, PMD Healthcare decision maker Belinda Rivero Resuscitation status Do Not Resuscitate Advanced Directive on File Review of Systems Psychiatric: Reports: prior hx, anxiety, emotional problems, hallucinations Physical Exam General Appearance: confused, moderate distress, agitated Last 24 Hour Vital Signs Date Time Temp Pulse Resp B/P (MAP) Pulse Ox O2 Delivery O2 Flow Rate FiO2 07/29/18 11:47 97.8 95 18 111/85 (94) 100 07/29/18 09:00 Nasal Cannula 2.0 07/29/18 08:00 98.2 82 18 109/89 (96) 100 07/29/18 08:00 83 22 99 Nasal Cannula 3.0 32 07/29/18 07:57 Nasal Cannula 3.0 32 07/29/18 07:57 94 Nasal Cannula 3.0 32 07/29/18 07:55 81 20 94 Nasal Cannula 3.0 32 07/29/18 04:00 97.6 81 18 106/68 (81) 100 07/29/18 00:00 97.0 82 20 118/71 (87) 99 07/28/18 23:52 84 22 99 Nasal Cannula 3.0 32 07/28/18 23:42 84 22 98 Venturi Mask 12.0 50 07/28/18 21:00 Nasal Cannula 2.0 07/28/18 20:12 87 22 96 Venturi Mask 12.0 50 07/28/18 20:05 89 22 96 Venturi Mask 12.0 50 07/28/18 20:00 99.3 87 20 96/68 (77) 99 07/28/18 16:00 98.4 95 18 110/66 (81) 98 07/28/18 14:50 95 21 97 Venturi Mask 12.0 50 07/28/18 14:39 92 24 92 Venturi Mask 12.0 50 Intake and Output 07/28/18 07/29/18 19:00 07:00 Intake Total 410.0 ml Output Total 750 ml 450 ml Balance -750 ml -40.0 ml Intake IV Total 410.0 ml Output Urine Total 750 ml 450 ml Laboratory Tests Test 07/29/18 05:40 White Blood Count 7.9 K/UL (4.8-10.8) Red Blood Count 3.08 M/UL (4.70-6.10) L Hemoglobin 8.1 G/DL (14.2-18.0) L Hematocrit 26.6 % (42.0-52.0) L Mean Corpuscular Volume 86 FL (80-99) Mean Corpuscular Hemoglobin 26.4 PG (27.0-31.0) L Mean Corpuscular Hemoglobin Concent 30.7 G/DL (32.0-36.0) L Red Cell Distribution Width 16.9 % (11.6-14.8) H Platelet Count 462 K/UL (150-450) H Mean Platelet Volume 6.1 FL (6.5-10.1) L Neutrophils (%) (Auto) % (45.0-75.0) Lymphocytes (%) (Auto) % (20.0-45.0) Monocytes (%) (Auto) % (1.0-10.0) Eosinophils (%) (Auto) % (0.0-3.0) Basophils (%) (Auto) % (0.0-2.0) Differential Total Cells Counted 100 Neutrophils % (Manual) 39 % (45-75) L Lymphocytes % (Manual) 22 % (20-45) Monocytes % (Manual) 3 % (1-10) Eosinophils % (Manual) 34 % (0-3) H Basophils % (Manual) 2 % (0-2) Band Neutrophils 0 % (0-8) Platelet Estimate Adequate Platelet Morphology Normal Hypochromasia 2+ Anisocytosis 1+ Reticulocyte Count 1.6 % (0.0-2.0) Prothrombin Time 11.7 SEC (9.30-11.50) H Prothromb Time International Ratio 1.1 (0.9-1.1) Activated Partial Thromboplast Time 30 SEC (23-33) Sodium Level 141 MMOL/L (136-145) Potassium Level 3.8 MMOL/L (3.5-5.1) Chloride Level 105 MMOL/L (98-107) Carbon Dioxide Level 28 MMOL/L (21-32) Anion Gap 8 mmol/L (5-15) Blood Urea Nitrogen 15 mg/dL (7-18) Creatinine 0.6 MG/DL (0.55-1.30) Estimat Glomerular Filtration Rate > 60 mL/min (>60) Glucose Level 112 MG/DL (74-106) H Calcium Level 9.2 MG/DL (8.5-10.1) Iron Level 27 ug/dL (50-175) L Total Iron Binding Capacity 120 ug/dL (250-450) L Percent Iron Saturation 23 % (15-50) Unsaturated Iron Binding 93 ug/dL (112-346) L Ferritin 292 NG/ML (8-388) Total Bilirubin 0.3 MG/DL (0.2-1.0) Aspartate Amino Transf (AST/SGOT) 16 U/L (15-37) Alanine Aminotransferase (ALT/SGPT) 14 U/L (12-78) Alkaline Phosphatase 89 U/L (46-116) Total Protein 9.5 G/DL (6.4-8.2) H Albumin 2.1 G/DL (3.4-5.0) L Globulin 7.4 g/dL Albumin/Globulin Ratio 0.3 (1.0-2.7) L Carcinoembryonic Antigen Pending Vitamin B12 Level 1512 PG/ML (193-986) H Folate 37.3 NG/ML (8.6-58.9) Thyroid Stimulating Hormone (TSH) 1.084 uiU/mL (0.358-3.740) Free Thyroxine 1.19 NG/DL (0.76-1.46) Height (Feet): 5 Height (Inches): 7.00 Weight (Pounds): 100 Medications Current Medications Medications (Trade) Dose Ordered Sig/Briseida Route PRN Reason Start Time Stop Time Status Last Admin Dose Admin Acetaminophen (Tylenol) 650 mg Q6HR PRN RECTAL fever T>100.5 07/28/18 01:00 08/27/18 00:59 Al Hydroxide/Mg Hydroxide (Mylanta) 15 ml Q1H PRN ORAL gi upset 07/29/18 06:45 07/29/18 14:00 Atropine Sulfate (Atropine) 0.5 mg Q5M PRN IV bpm less than 45 07/29/18 06:45 07/29/18 14:00 Dextrose/Sodium Chloride 1,000 ml @ 60 mls/hr [id number] IV 07/28/18 01:00 08/27/18 00:59 07/29/18 10:27 Diphenhydramine HCl (Benadryl) 25 mg Q15M PRN IVP Itching 07/29/18 06:45 07/29/18 14:00 Fentanyl Citrate (Sublimaze 100 mcg/2 mL) 25 mcg Q10M PRN IV Moderate Pain (Pain Scale 4-6) 07/29/18 06:45 07/29/18 14:00 Heparin Sodium (Porcine) (Heparin 5000 units/ml) 5,000 units EVERY 12 HOURS SUBQ 07/28/18 09:00 08/27/18 08:59 07/28/18 21:36 Hydralazine HCl (Apresoline) 5 mg Q30M PRN IV SBP>160 OR___/DBP>90 OR___ 07/29/18 06:45 07/29/18 14:00 Ipratropium Pride (Atrovent) 500 mcg Q6HRT HHN 07/27/18 22:15 08/01/18 22:14 07/29/18 07:54 Midazolam HCl (Versed 2mg/2ml vial) 1 mg Q15M PRN IVP For Anxiety 07/29/18 06:45 07/29/18 14:00 Morphine Sulfate (Morphine Sulfate) 2 mg Q6H PRN IVP For severe pain 07/28/18 01:00 08/04/18 00:59 Ondansetron HCl (Zofran) 4 mg Q1H PRN IVP Nausea & Vomiting 07/29/18 06:45 07/29/18 14:00 Ondansetron HCl (Zofran) 4 mg Q8H PRN IVP Nausea & Vomiting 07/28/18 01:00 08/27/18 00:59 Piperacillin Sod/ Tazobactam Sod 3.375 gm/Dextrose 110 ml @ 27.5 mls/hr Q8HR IVPB 07/28/18 14:00 08/04/18 13:59 07/29/18 05:26 Sodium Chloride 1,000 ml @ 10 mls/hr Q24H IVLG 07/29/18 06:38 07/29/18 14:00 07/29/18 06:38 Vancomycin HCl (Vanco rx to dose) 1 ea DAILY PRN MISC Per rx protocol 07/28/18 01:00 08/27/18 00:59 Vancomycin/Sodium Chloride 250 ml @ 166.667 mls/hr Q24H IVPB 07/28/18 18:00 08/02/18 17:59 07/28/18 18:47 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
--- NOTE | 2018-07-29 12:52 | Consultation ---
History of Present Illness General Chief Complaint: Fever Referring physician: SANDY SILVESTRE Reason for Consultation: wounds Present Illness HPI 68 year old male well known to me from prior visits. currently presents with dislodged g tube which could not be replaced in ED. admitted for care, management, and g tube replacement. surgery called to evaluate wounds that have been present some time now and assist with care. patient seen, chart reviewed, patient examined. Allergies: Coded Allergies: CEFTRIAXONE (Verified Allergy, Unknown, 07/28/18) rash reaction Medication History Scheduled Amlodipine Besylate* (Amlodipine Besylate*), 10 MG GT DAILY, (Reported) Arginine/Ascorbate Sod/Abigail AC (Arginaid Powder), 1 EACH GT BID, (Reported) Ascorbic Acid* (Vitamin C*), 500 MG GT BID, (Reported) Aspirin* (Aspir 81*), 81 MG GT DAILY, (Reported) Cranberry Extract (Cranberry Extract), 425 MG GT BID, (Reported) Donepezil HCl (Aricept), 10 MG GT BEDTIME, (Reported) Dutasteride (Avodart), 0.5 MG GT DAILY, (Reported) Ferrous Sulfate (Ferrous Sulfate), 7.5 ML GT TID, (Reported) Heparin Sod (Porcine) (Heparin Sodium*), 5,000 UNITS SUBQ EVERY 12 HOURS, ( Reported) Hydrocortisone/Aloe Vera 1%* (Hydrocortisone-Aloe 1% Cream*), 1 APPLIC TOPIC DAILY, (Reported) Insulin Aspart* (Novolog*), 0 SUBQ EVERY 6 HOURS, (Reported) Insulin Detemir (Levemir Flexpen), 6 UNITS SUBQ BID, (Reported) Ipratropium Carnation 0.5MG/2.5ML (Ipratropium Carnation 0.5MG/2.5ML), 0.5 MG HHN Q6H, (Reported) Loratadine (Loratadine), 10 MG GT DAILY, (Reported) Metformin Hcl* (Metformin Hcl*), 850 MG GT DAILY, (Reported) Multivitamin With Minerals (Multivitamins With Minerals*), 1 TAB GT DAILY, ( Reported) Silver Sulfadiazine (Silvadene), 20 GM TP DAILY, (Reported) Sitagliptin* (Januvia*), 100 MG GT DAILY, (Reported) Zinc Sulfate (Zinc Sulfate*), 220 MG GT DAILY, (Reported) Scheduled PRN Acetaminophen 160MG/5ML* (Acetaminophen*), 20 ML GT EVERY 4 HOURS PRN for Fever/ Headache/Mild Pain, (Reported) Ipratropium Carnation 0.5MG/2.5ML (Ipratropium Carnation 0.5MG/2.5ML), 0.5 MG HHN Q4HR PRN for Shortness of Breath, (Reported) Patient History Limited by: medical condition History Provided By: Medical Record, PMD Healthcare decision maker Belinda Rivero Resuscitation status Do Not Resuscitate Advanced Directive on File Past Medical/Surgical History Past Medical/Surgical History: (1) Cachexia (2) Sepsis (3) PNA (pneumonia) (4) Decubitus ulcer of left hip, stage 4 (5) Decubitus ulcer of right hip, stage 3 (6) Proteinuria (7) Functional quadriplegia (8) Acute renal failure (9) Decubitus skin ulcer (10) Diabetes mellitus out of control (11) Sacral decubitus ulcer, stage IV (12) 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 (13) Dementia (14) Dysphagia (15) Severe malnutrition (16) Anemia (17) UTI (urinary tract infection) (18) PEG tube malfunction (19) HCAP (healthcare-associated pneumonia) Review of Systems ROS Narrative cannot obtain Physical Exam General Appearance: no apparent distress Lines, tubes and drains: other HEENT: other Neck: normal inspection Respiratory/Chest: normal breath sounds, no respiratory distress Cardiovascular/Chest: normal rate Abdomen: soft, no organomegaly, no mass, feeding tube, other Extremities: other Skin Exam: other Neurologic: unresponsiveness Last 24 Hour Vital Signs Date Time Temp Pulse Resp B/P (MAP) Pulse Ox O2 Delivery O2 Flow Rate FiO2 07/29/18 11:47 97.8 95 18 111/85 (94) 100 07/29/18 09:00 Nasal Cannula 2.0 07/29/18 08:00 98.2 82 18 109/89 (96) 100 07/29/18 08:00 83 22 99 Nasal Cannula 3.0 32 07/29/18 07:57 Nasal Cannula 3.0 32 07/29/18 07:57 94 Nasal Cannula 3.0 32 07/29/18 07:55 81 20 94 Nasal Cannula 3.0 32 07/29/18 04:00 97.6 81 18 106/68 (81) 100 07/29/18 00:00 97.0 82 20 118/71 (87) 99 07/28/18 23:52 84 22 99 Nasal Cannula 3.0 32 07/28/18 23:42 84 22 98 Venturi Mask 12.0 50 07/28/18 21:00 Nasal Cannula 2.0 07/28/18 20:12 87 22 96 Venturi Mask 12.0 50 07/28/18 20:05 89 22 96 Venturi Mask 12.0 50 07/28/18 20:00 99.3 87 20 96/68 (77) 99 07/28/18 16:00 98.4 95 18 110/66 (81) 98 07/28/18 14:50 95 21 97 Venturi Mask 12.0 50 07/28/18 14:39 92 24 92 Venturi Mask 12.0 50 Intake and Output 07/28/18 07/29/18 19:00 07:00 Intake Total 410.0 ml Output Total 750 ml 450 ml Balance -750 ml -40.0 ml Intake IV Total 410.0 ml Output Urine Total 750 ml 450 ml Laboratory Tests Test 07/29/18 05:40 White Blood Count 7.9 K/UL (4.8-10.8) Red Blood Count 3.08 M/UL (4.70-6.10) L Hemoglobin 8.1 G/DL (14.2-18.0) L Hematocrit 26.6 % (42.0-52.0) L Mean Corpuscular Volume 86 FL (80-99) Mean Corpuscular Hemoglobin 26.4 PG (27.0-31.0) L Mean Corpuscular Hemoglobin Concent 30.7 G/DL (32.0-36.0) L Red Cell Distribution Width 16.9 % (11.6-14.8) H Platelet Count 462 K/UL (150-450) H Mean Platelet Volume 6.1 FL (6.5-10.1) L Neutrophils (%) (Auto) % (45.0-75.0) Lymphocytes (%) (Auto) % (20.0-45.0) Monocytes (%) (Auto) % (1.0-10.0) Eosinophils (%) (Auto) % (0.0-3.0) Basophils (%) (Auto) % (0.0-2.0) Differential Total Cells Counted 100 Neutrophils % (Manual) 39 % (45-75) L Lymphocytes % (Manual) 22 % (20-45) Monocytes % (Manual) 3 % (1-10) Eosinophils % (Manual) 34 % (0-3) H Basophils % (Manual) 2 % (0-2) Band Neutrophils 0 % (0-8) Platelet Estimate Adequate Platelet Morphology Normal Hypochromasia 2+ Anisocytosis 1+ Reticulocyte Count 1.6 % (0.0-2.0) Prothrombin Time 11.7 SEC (9.30-11.50) H Prothromb Time International Ratio 1.1 (0.9-1.1) Activated Partial Thromboplast Time 30 SEC (23-33) Sodium Level 141 MMOL/L (136-145) Potassium Level 3.8 MMOL/L (3.5-5.1) Chloride Level 105 MMOL/L (98-107) Carbon Dioxide Level 28 MMOL/L (21-32) Anion Gap 8 mmol/L (5-15) Blood Urea Nitrogen 15 mg/dL (7-18) Creatinine 0.6 MG/DL (0.55-1.30) Estimat Glomerular Filtration Rate > 60 mL/min (>60) Glucose Level 112 MG/DL (74-106) H Calcium Level 9.2 MG/DL (8.5-10.1) Iron Level 27 ug/dL (50-175) L Total Iron Binding Capacity 120 ug/dL (250-450) L Percent Iron Saturation 23 % (15-50) Unsaturated Iron Binding 93 ug/dL (112-346) L Ferritin 292 NG/ML (8-388) Total Bilirubin 0.3 MG/DL (0.2-1.0) Aspartate Amino Transf (AST/SGOT) 16 U/L (15-37) Alanine Aminotransferase (ALT/SGPT) 14 U/L (12-78) Alkaline Phosphatase 89 U/L (46-116) Total Protein 9.5 G/DL (6.4-8.2) H Albumin 2.1 G/DL (3.4-5.0) L Globulin 7.4 g/dL Albumin/Globulin Ratio 0.3 (1.0-2.7) L Carcinoembryonic Antigen Pending Vitamin B12 Level 1512 PG/ML (193-986) H Folate 37.3 NG/ML (8.6-58.9) Thyroid Stimulating Hormone (TSH) 1.084 uiU/mL (0.358-3.740) Free Thyroxine 1.19 NG/DL (0.76-1.46) Height (Feet): 5 Height (Inches): 7.00 Weight (Pounds): 100 Medications Current Medications Medications (Trade) Dose Ordered Sig/Briseida Route PRN Reason Start Time Stop Time Status Last Admin Dose Admin Acetaminophen (Tylenol) 650 mg Q6HR PRN RECTAL fever T>100.5 07/28/18 01:00 08/27/18 00:59 Al Hydroxide/Mg Hydroxide (Mylanta) 15 ml Q1H PRN ORAL gi upset 07/29/18 06:45 07/29/18 14:00 Atropine Sulfate (Atropine) 0.5 mg Q5M PRN IV bpm less than 45 07/29/18 06:45 07/29/18 14:00 Dextrose/Sodium Chloride 1,000 ml @ 60 mls/hr [id number] IV 07/28/18 01:00 08/27/18 00:59 07/29/18 10:27 Diphenhydramine HCl (Benadryl) 25 mg Q15M PRN IVP Itching 07/29/18 06:45 07/29/18 14:00 Fentanyl Citrate (Sublimaze 100 mcg/2 mL) 25 mcg Q10M PRN IV Moderate Pain (Pain Scale 4-6) 07/29/18 06:45 07/29/18 14:00 Heparin Sodium (Porcine) (Heparin 5000 units/ml) 5,000 units EVERY 12 HOURS SUBQ 07/28/18 09:00 08/27/18 08:59 07/28/18 21:36 Hydralazine HCl (Apresoline) 5 mg Q30M PRN IV SBP>160 OR___/DBP>90 OR___ 07/29/18 06:45 07/29/18 14:00 Ipratropium Carnation (Atrovent) 500 mcg Q6HRT HHN 07/27/18 22:15 08/01/18 22:14 07/29/18 07:54 Midazolam HCl (Versed 2mg/2ml vial) 1 mg Q15M PRN IVP For Anxiety 07/29/18 06:45 07/29/18 14:00 Morphine Sulfate (Morphine Sulfate) 2 mg Q6H PRN IVP For severe pain 07/28/18 01:00 08/04/18 00:59 Ondansetron HCl (Zofran) 4 mg Q1H PRN IVP Nausea & Vomiting 07/29/18 06:45 07/29/18 14:00 Ondansetron HCl (Zofran) 4 mg Q8H PRN IVP Nausea & Vomiting 07/28/18 01:00 08/27/18 00:59 Piperacillin Sod/ Tazobactam Sod 3.375 gm/Dextrose 110 ml @ 27.5 mls/hr Q8HR IVPB 07/28/18 14:00 08/04/18 13:59 07/29/18 05:26 Sodium Chloride 1,000 ml @ 10 mls/hr Q24H IVLG 07/29/18 06:38 07/29/18 14:00 07/29/18 06:38 Vancomycin HCl (Vanco rx to dose) 1 ea DAILY PRN MISC Per rx protocol 07/28/18 01:00 08/27/18 00:59 Vancomycin/Sodium Chloride 250 ml @ 166.667 mls/hr Q24H IVPB 07/28/18 18:00 08/02/18 17:59 07/28/18 18:47 Assessment/Plan Problem List: (1) Severe malnutrition Assessment & Plan: cont with current nutrition recs. patient does seem to have improved a bit since last seen ICD Codes: E43 - Unspecified severe protein-calorie malnutrition SNOMED: 61957279 (2) Decubitus skin ulcer Assessment & Plan: Pt with multiple full thickness pressure injuries R trochanteric pressure injury (L)3cm x (W)2.5cm, slough,otherwise granular with macerated borders.Periwound dark and indurated. Full thickness sacral pressure injury (L)9.4cm x (W)11.5cm x (D)2.5cm .Wound bed with good granulation tissue. Full thickness pressure injury to L trochanter (L)5.5cmx(W)4cm x0.8cm, undermining Both heels boggy with dark non-blanching erythema. All wounds present upon admission and will be cared for during admission Tx.Plan: Cleanse Sacral and L trochanteric wounds with Saline .Loosely pack with Hydrogel impregnated gauze. Cavilon to Borders and periwound. Cleanse R trochanteric wound with Saline.Apply Therahoney gel .Cavilon to borders .Cover with Optifoam drsg Daily and prn. Apply Cavilon to both heels.Cover with Optifoam drsg.Change every 7days and prn.Off-load heels with pillow. Reposition at minimum every 2hours or as tolerated. Air Fluidized mattress. ICD Codes: L89.90 - Pressure ulcer of unspecified site, unspecified stage SNOMED: 930560424 (3) Sacral decubitus ulcer, stage IV ICD Codes: L89.154 - Pressure ulcer of sacral region, stage 4 SNOMED: 029867266, 156135884 (4) Decubitus ulcer of left hip, stage 4 ICD Codes: L89.224 - Pressure ulcer of left hip, stage 4 SNOMED: 623725664, 384012247 (5) Decubitus ulcer of right hip, stage 3 ICD Codes: L89.213 - Pressure ulcer of right hip, stage 3 SNOMED: 972729135, [id number] Shamar Clark Jul 29, 2018 12:52
--- NOTE | 2018-07-29 13:20 | Immediate Post-Op Evaluation ---
Immediate Post-Op Evalulation Immediate Post-Op Evalulation Procedure: egd/peg Date of Evaluation: Jul 29, 2018 Time of Evaluation: 12:27 IV Fluids: 75ml 0.9ns Blood Products: none Estimated Blood Loss: negligible Blood Pressure Systolic: 97 Blood Pressure Diastolic: 67 Pulse Rate: 88 Respiratory Rate: 18 O2 Sat by Pulse Oximetry: 93 Temperature (Fahrenheit): 98.1 Pain Score (1-10): 0 Nausea: No Vomiting: No Complications none Patient Status: awake, reacts, patent Hydration Status: adequate Drug: Lori Gloria MD Jul 29, 2018 13:20
--- NOTE | 2018-07-29 13:22 | 48 Hour Post Anesthesia Eval ---
Post Anesthesia Evaluation Procedure: egd/peg Date of Evaluation: Jul 29, 2018 Time of Evaluation: 12:29 Blood Pressure Systolic: 100 0: 68 Pulse Rate: 81 Respiratory Rate: 18 Temperature (Fahrenheit): 98.1 O2 Sat by Pulse Oximetry: 95 Airway: patent Nausea: No Vomiting: No Pain Intensity: 0 Hydration Status: adequate Cardiopulmonary Status: stable Mental Status/LOC: patient returned to baseline Post-Anesthesia Complications: none Follow-up care needed: N/A Lori Barrientos MD Jul 29, 2018 13:22
--- NOTE | 2018-07-29 13:41 | Infectious Diseases Prog Note ---
Assessment/Plan Assessment/Plan A; Sepsis Pneumonia UTI Dislodged GT, replaced Mild abdominal wall cellulitis DM Pressure ulcer Dementia P; Continue Zosyn & Vancomycin Will f/u cultures Subjective ROS Limited/Unobtainable: Yes Constitutional: Reports: no symptoms Gastrointestinal/Abdominal: Reports: other - GT was replaced Allergies: Coded Allergies: CEFTRIAXONE (Verified Allergy, Unknown, 07/28/18) rash reaction Objective Vital Signs Last 24 Hour Vital Signs Date Time Temp Pulse Resp B/P (MAP) Pulse Ox O2 Delivery O2 Flow Rate FiO2 07/29/18 13:22 81 18 95 07/29/18 13:20 88 18 93 07/29/18 11:47 97.8 95 18 111/85 (94) 100 07/29/18 09:00 Nasal Cannula 2.0 07/29/18 08:00 98.2 82 18 109/89 (96) 100 07/29/18 08:00 83 22 99 Nasal Cannula 3.0 32 07/29/18 07:57 Nasal Cannula 3.0 32 07/29/18 07:57 94 Nasal Cannula 3.0 32 07/29/18 07:55 81 20 94 Nasal Cannula 3.0 32 07/29/18 04:00 97.6 81 18 106/68 (81) 100 07/29/18 00:00 97.0 82 20 118/71 (87) 99 07/28/18 23:52 84 22 99 Nasal Cannula 3.0 32 07/28/18 23:42 84 22 98 Venturi Mask 12.0 50 07/28/18 21:00 Nasal Cannula 2.0 07/28/18 20:12 87 22 96 Venturi Mask 12.0 50 07/28/18 20:05 89 22 96 Venturi Mask 12.0 50 07/28/18 20:00 99.3 87 20 96/68 (77) 99 07/28/18 16:00 98.4 95 18 110/66 (81) 98 07/28/18 14:50 95 21 97 Venturi Mask 12.0 50 07/28/18 14:39 92 24 92 Venturi Mask 12.0 50 Height (Feet): 5 Height (Inches): 7.00 Weight (Pounds): 100 General Appearance: no acute distress, cachetic HEENT: mucous membranes moist Respiratory/Chest: lungs clear Cardiovascular: normal rate Abdomen: soft, non tender, other - GT inplace Extremities: no edema Neurologic/Psychiatric: aphasia Musculoskeletal: atrophy Microbiology Date/Time Source Procedure Growth Status 07/27/18 18:05 Blood Blood Culture - Preliminary NO GROWTH AFTER 24 HOURS Resulted 07/27/18 17:50 Blood Blood Culture - Preliminary NO GROWTH AFTER 24 HOURS Resulted 07/27/18 18:27 Urine,Clean Catch Urine Culture - Preliminary Gram Negative Bacillus 1 Resulted Laboratory Tests Test 07/29/18 05:40 White Blood Count 7.9 K/UL (4.8-10.8) Red Blood Count 3.08 M/UL (4.70-6.10) L Hemoglobin 8.1 G/DL (14.2-18.0) L Hematocrit 26.6 % (42.0-52.0) L Mean Corpuscular Volume 86 FL (80-99) Mean Corpuscular Hemoglobin 26.4 PG (27.0-31.0) L Mean Corpuscular Hemoglobin Concent 30.7 G/DL (32.0-36.0) L Red Cell Distribution Width 16.9 % (11.6-14.8) H Platelet Count 462 K/UL (150-450) H Mean Platelet Volume 6.1 FL (6.5-10.1) L Neutrophils (%) (Auto) % (45.0-75.0) Lymphocytes (%) (Auto) % (20.0-45.0) Monocytes (%) (Auto) % (1.0-10.0) Eosinophils (%) (Auto) % (0.0-3.0) Basophils (%) (Auto) % (0.0-2.0) Differential Total Cells Counted 100 Neutrophils % (Manual) 39 % (45-75) L Lymphocytes % (Manual) 22 % (20-45) Monocytes % (Manual) 3 % (1-10) Eosinophils % (Manual) 34 % (0-3) H Basophils % (Manual) 2 % (0-2) Band Neutrophils 0 % (0-8) Platelet Estimate Adequate Platelet Morphology Normal Hypochromasia 2+ Anisocytosis 1+ Reticulocyte Count 1.6 % (0.0-2.0) Prothrombin Time 11.7 SEC (9.30-11.50) H Prothromb Time International Ratio 1.1 (0.9-1.1) Activated Partial Thromboplast Time 30 SEC (23-33) Sodium Level 141 MMOL/L (136-145) Potassium Level 3.8 MMOL/L (3.5-5.1) Chloride Level 105 MMOL/L (98-107) Carbon Dioxide Level 28 MMOL/L (21-32) Anion Gap 8 mmol/L (5-15) Blood Urea Nitrogen 15 mg/dL (7-18) Creatinine 0.6 MG/DL (0.55-1.30) Estimat Glomerular Filtration Rate > 60 mL/min (>60) Glucose Level 112 MG/DL (74-106) H Calcium Level 9.2 MG/DL (8.5-10.1) Iron Level 27 ug/dL (50-175) L Total Iron Binding Capacity 120 ug/dL (250-450) L Percent Iron Saturation 23 % (15-50) Unsaturated Iron Binding 93 ug/dL (112-346) L Ferritin 292 NG/ML (8-388) Total Bilirubin 0.3 MG/DL (0.2-1.0) Aspartate Amino Transf (AST/SGOT) 16 U/L (15-37) Alanine Aminotransferase (ALT/SGPT) 14 U/L (12-78) Alkaline Phosphatase 89 U/L (46-116) Total Protein 9.5 G/DL (6.4-8.2) H Albumin 2.1 G/DL (3.4-5.0) L Globulin 7.4 g/dL Albumin/Globulin Ratio 0.3 (1.0-2.7) L Carcinoembryonic Antigen Pending Vitamin B12 Level 1512 PG/ML (193-986) H Folate 37.3 NG/ML (8.6-58.9) Thyroid Stimulating Hormone (TSH) 1.084 uiU/mL (0.358-3.740) Free Thyroxine 1.19 NG/DL (0.76-1.46) Current Medications Medications (Trade) Dose Ordered Sig/Briseida Route PRN Reason Start Time Stop Time Status Last Admin Dose Admin Acetaminophen (Tylenol) 650 mg Q6HR PRN RECTAL fever T>100.5 07/28/18 01:00 08/27/18 00:59 Al Hydroxide/Mg Hydroxide (Mylanta) 15 ml Q1H PRN ORAL gi upset 07/29/18 06:45 07/29/18 14:00 Atropine Sulfate (Atropine) 0.5 mg Q5M PRN IV bpm less than 45 07/29/18 06:45 07/29/18 14:00 Dextrose/Sodium Chloride 1,000 ml @ 60 mls/hr [id number] IV 07/28/18 01:00 08/27/18 00:59 07/29/18 10:27 Diphenhydramine HCl (Benadryl) 25 mg Q15M PRN IVP Itching 07/29/18 06:45 07/29/18 14:00 Fentanyl Citrate (Sublimaze 100 mcg/2 mL) 25 mcg Q10M PRN IV Moderate Pain (Pain Scale 4-6) 07/29/18 06:45 07/29/18 14:00 Heparin Sodium (Porcine) (Heparin 5000 units/ml) 5,000 units EVERY 12 HOURS SUBQ 07/28/18 09:00 08/27/18 08:59 07/28/18 21:36 Hydralazine HCl (Apresoline) 5 mg Q30M PRN IV SBP>160 OR___/DBP>90 OR___ 07/29/18 06:45 07/29/18 14:00 Ipratropium [place] (Atrovent) 500 mcg Q6HRT HHN 07/27/18 22:15 08/01/18 22:14 07/29/18 07:54 Midazolam HCl (Versed 2mg/2ml vial) 1 mg Q15M PRN IVP For Anxiety 07/29/18 06:45 07/29/18 14:00 Morphine Sulfate (Morphine Sulfate) 2 mg Q6H PRN IVP For severe pain 07/28/18 01:00 08/04/18 00:59 Ondansetron HCl (Zofran) 4 mg Q1H PRN IVP Nausea & Vomiting 07/29/18 06:45 07/29/18 14:00 Ondansetron HCl (Zofran) 4 mg Q8H PRN IVP Nausea & Vomiting 07/28/18 01:00 08/27/18 00:59 Piperacillin Sod/ Tazobactam Sod 3.375 gm/Dextrose 110 ml @ 27.5 mls/hr Q8HR IVPB 07/28/18 14:00 08/04/18 13:59 07/29/18 05:26 Sodium Chloride 1,000 ml @ 10 mls/hr Q24H IVLG 07/29/18 06:38 07/29/18 14:00 07/29/18 06:38 Vancomycin HCl (Vanco rx to dose) 1 ea DAILY PRN MISC Per rx protocol 07/28/18 01:00 08/27/18 00:59 Vancomycin/Sodium Chloride 250 ml @ 166.667 mls/hr Q24H IVPB 07/28/18 18:00 08/02/18 17:59 07/28/18 18:47 Herson Palmer MD Jul 29, 2018 13:41
--- NOTE | 2018-07-29 14:32 | Consultation ---
Consult Note Consult Note HEMATOLOGY/ONCOLOGY CONSULTATION REFERRING PHYSICIAN: Jamia Wu REASON FOR CONSULT: Anemia, thrombocytosis DATE OF CONSULT: 07/29/2018 HISTORY OF PRESENT ILLNESS: The patient is a pleasant 68-year-old male. I have seen him in the past, most recently in June 2018. Pt with history which is significant for CVA, TIA, dementia, asthma, hypertension, history of diabetes mellitus, who presents to the [facility] from nursing facility because of dislodgement of the G-tube. An attempt by ER doctor to replace G-tube was unsuccessful and the patient was arranged for EGD and PEG replacement. 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 Now, he has some crackles in bilateral lung sounds. It is difficult to respond, nonverbal, but does smile occasionally. He has a history of hospital-acquired pneumonia, history of sepsis, insulin-dependent diabetes mellitus, history of dementia, history of Beltran catheter in place, most of the records obtained from EMR. He is DNR/DNI status, noted to have multifocal pneumonia on prior admission and Proteus ESBL, has been on broad-spectrum antibiotics. Hematology Service consulted for evaluation of underlying anemia as well as thrombocytosis. PAST MEDICAL HISTORY: As noted above. PAST SURGICAL HISTORY: Gtube SOCIAL HISTORY: SNF resident FAMILY HISTORY: Not available. ALLERGIES: Ceftriaxone. REVIEW OF SYSTEMS: Difficult to obtain. The patient is nonverbal. G-tube placement. PHYSICAL EXAMINATION: VITAL SIGNS: Reviewed. GENERAL: Not in acute distress. The patient is contracted, lying in bed, bedbound, ill and lethargic. PULMONARY: Decreased breath sounds, 1 to 2+ crackles in bilateral lungs. Nasal cannula in place. CARDIOVASCULAR: Regular rate and crackles noted overlying the heart sounds. ABDOMEN: Soft, nontender, nondistended. Positive for G-tube. EXTREMITIES: No cyanosis or swelling noted. MEDICATIONS: Current meds have been reviewed LABORATORY DATA: wbc 7.9 hgb 8.1 plt 462 IMAGING: CXR --> Bilateral mostly interstitial parenchymal disease. ASSESSMENT AND RECOMMENDATIONS #. Anemia due to underlying chronic disease. ESR was 115 on last admission. Closely monitor for improvement. The patient has ongoing anemia, likely related to underlying decubitus ulceration. In addition to being chronically ill, bedbound, and hemoglobin, ferritin is >1000 --> New panel ordered and is pending. --> trend cbc daily --> no hemolysis has been noted --> Hgb goal >7, transfuse prn. #. Thrombocytosis is likely related to underlying anemia, infection, fevers --> Plt remains elevated --> trend platelet count --> continue on asa low dose # Sepsis. ID is following, appreciate recs. --> On abx --> F/U cx # Dislodged GT, GI is following, appreciate recs. --> Has been replaced # Mild abdominal wall cellulitis # DM. Monitor BS levels. GREATLY APPRECIATE CONSULTATION. : Nikolai Richards MD Jul 29, 2018 14:32
--- NOTE | 2018-07-29 15:54 | Pulmonology Progress Note ---
Assessment/Plan Assessment/Plan Pulmonary Progress Note Chief Complaint: Fever, dislodged G tube Patient is a frail elderly Senior Living resident admitted s/p dislodgement of G tube, worsening respiratory distress, felt to have possible aspiration pneumonia. Patient is DNAR/DNI with plan to transition to hospice PMH: Dementia, HTN, Asthma, Previous CVA, s/p G tube Allergies: CEFTRIAXONE (Verified Allergy, Unknown, 04/04/18) Physical Exam Vital Signs Noted Elderly wasted man, contarctures, chronically ill appearing HEENT: NCAT, dry MM, JVP not elevated Chest: bilateral rhonchi Heart: HS1, HS2 RRR Abdo: Soft, ND, NT, G tube site appears infected Extrem: Wasted, no edema TWINE WINDER: Generally weak, no response to command, no seizures Last Vital Signs Date Time Temp Pulse Resp B/P (MAP) Pulse Ox O2 Delivery O2 Flow Rate FiO2 07/27/18 17:23 101.0 116 21 112/81 98 Nasal Cannula 4.0 Impression: GTube dislodgement, with possible cellulitis Aspiration Pneumonia Dementia HTN Asthma Previous CVA DNR/DNI Plan: IV Zosyn, Vanco, levaquin IVF HHN/CPT Q6 Aspiration precautions Pain meds Comfort meds Await reinsertion G-tube by GI O2 PRN SQ Heparin Labs CXR Subjective ROS Limited/Unobtainable: Yes Allergies: Coded Allergies: CEFTRIAXONE (Verified Allergy, Unknown, 07/28/18) rash reaction Objective Last 24 Hour Vital Signs Date Time Temp Pulse Resp B/P (MAP) Pulse Ox O2 Delivery O2 Flow Rate FiO2 07/29/18 14:42 Nasal Cannula 3.0 32 07/29/18 14:42 Nasal Cannula 3.0 32 07/29/18 13:22 81 18 95 07/29/18 13:20 88 18 93 07/29/18 12:45 98.5 86 20 115/69 99 Nasal Cannula 3 07/29/18 12:35 87 16 111/85 97 Nasal Cannula 3 07/29/18 12:25 90 15 115/68 97 Nasal Cannula 3 07/29/18 12:20 84 17 115/64 98 Nasal Cannula 3 07/29/18 12:15 98.0 88 18 99/67 98 Nasal Cannula 3 07/29/18 11:47 97.8 95 18 111/85 (94) 100 1218/18 09:00 Nasal Cannula 2.0 07/29/18 08:00 98.2 82 18 109/89 (96) 100 07/29/18 08:00 83 22 99 Nasal Cannula 3.0 32 07/29/18 07:57 Nasal Cannula 3.0 32 07/29/18 07:57 94 Nasal Cannula 3.0 32 07/29/18 07:55 81 20 94 Nasal Cannula 3.0 32 07/29/18 04:00 97.6 81 18 106/68 (81) 100 07/29/18 00:00 97.0 82 20 118/71 (87) 99 07/28/18 23:52 84 22 99 Nasal Cannula 3.0 32 07/28/18 23:42 84 22 98 Venturi Mask 12.0 50 07/28/18 21:00 Nasal Cannula 2.0 07/28/18 20:12 87 22 96 Venturi Mask 12.0 50 07/28/18 20:05 89 22 96 Venturi Mask 12.0 50 07/28/18 20:00 99.3 87 20 96/68 (77) 99 07/28/18 16:00 98.4 95 18 110/66 (81) 98 Intake and Output 07/28/18 07/29/18 19:00 07:00 Intake Total 410.0 ml Output Total 750 ml 450 ml Balance -750 ml -40.0 ml Intake IV Total 410.0 ml Output Urine Total 750 ml 450 ml Microbiology Date/Time Source Procedure Growth Status 07/27/18 18:05 Blood Blood Culture - Preliminary NO GROWTH AFTER 24 HOURS Resulted 07/27/18 17:50 Blood Blood Culture - Preliminary NO GROWTH AFTER 24 HOURS Resulted 07/27/18 18:27 Urine,Clean Catch Urine Culture - Preliminary Gram Negative Bacillus 1 Resulted 07/28/18 01:00 Hip Right Gram Stain - Final Resulted 07/28/18 01:00 Hip Right Wound Culture Pending Resulted 07/28/18 01:00 Hip Left Gram Stain - Final Resulted 07/28/18 01:00 Hip Left Wound Culture Pending Resulted 07/28/18 01:00 Sacral Wound Gram Stain - Final Resulted 07/28/18 01:00 Sacral Wound Wound Culture Pending Resulted Laboratory Tests 07/29/18 05:40: White Blood Count 7.9, Red Blood Count 3.08L, Hemoglobin 8.1L, Hematocrit 26.6L , Mean Corpuscular Volume 86, Mean Corpuscular Hemoglobin 26.4L, Mean Corpuscular Hemoglobin Concent 30.7L, Red Cell Distribution Width 16.9H, Platelet Count 462H, Mean Platelet Volume 6.1L, Neutrophils (%) (Auto) , Lymphocytes (%) (Auto) , Monocytes (%) (Auto) , Eosinophils (%) (Auto) , Basophils (%) (Auto) , Differential Total Cells Counted 100, Neutrophils % ( Manual) 39L, Lymphocytes % (Manual) 22, Monocytes % (Manual) 3, Eosinophils % ( Manual) 34H, Basophils % (Manual) 2, Band Neutrophils 0, Platelet Estimate Adequate, Platelet Morphology Normal, Hypochromasia 2+, Anisocytosis 1+, Reticulocyte Count 1.6, Prothrombin Time 11.7H, Prothromb Time International Ratio 1.1, Activated Partial Thromboplast Time 30, Sodium Level 141, Potassium Level 3.8, Chloride Level 105, Carbon Dioxide Level 28, Anion Gap 8, Blood Urea Nitrogen 15, Creatinine 0.6, Estimat Glomerular Filtration Rate > 60, Glucose Level 112H, Calcium Level 9.2, Iron Level 27L, Total Iron Binding Capacity 120L , Percent Iron Saturation 23, Unsaturated Iron Binding 93L, Ferritin 292, Total Bilirubin 0.3, Aspartate Amino Transf (AST/SGOT) 16, Alanine Aminotransferase ( ALT/SGPT) 14, Alkaline Phosphatase 89, Total Protein 9.5H, Albumin 2.1L, Globulin 7.4, Albumin/Globulin Ratio 0.3L, Carcinoembryonic Antigen [Pending], Vitamin B12 Level 1512H, Folate 37.3, Thyroid Stimulating Hormone (TSH) 1.084, Free Thyroxine 1.19 Current Medications Medications (Trade) Dose Ordered Sig/Briseida Route PRN Reason Start Time Stop Time Status Last Admin Dose Admin Acetaminophen (Tylenol) 650 mg Q6HR PRN RECTAL fever T>100.5 07/28/18 01:00 08/27/18 00:59 Dextrose/Sodium Chloride 1,000 ml @ 60 mls/hr [id number] IV 07/28/18 01:00 08/27/18 00:59 07/29/18 10:27 Heparin Sodium (Porcine) (Heparin 5000 units/ml) 5,000 units EVERY 12 HOURS SUBQ 07/28/18 09:00 08/27/18 08:59 07/28/18 21:36 Ipratropium [place] (Atrovent) 500 mcg Q6HRT HHN 07/27/18 22:15 08/01/18 22:14 07/29/18 07:54 Morphine Sulfate (Morphine Sulfate) 2 mg Q6H PRN IVP For severe pain 07/28/18 01:00 08/04/18 00:59 Ondansetron HCl (Zofran) 4 mg Q8H PRN IVP Nausea & Vomiting 07/28/18 01:00 08/27/18 00:59 Piperacillin Sod/ Tazobactam Sod 3.375 gm/Dextrose 110 ml @ 27.5 mls/hr Q8HR IVPB 07/28/18 14:00 08/04/18 13:59 07/29/18 14:55 Vancomycin HCl (Vanco rx to dose) 1 ea DAILY PRN MISC Per rx protocol 07/28/18 01:00 08/27/18 00:59 Vancomycin/Sodium Chloride 250 ml @ 166.667 mls/hr Q24H IVPB 07/28/18 18:00 08/02/18 17:59 07/28/18 18:47 Nikko Franklin MD Jul 29, 2018 15:54
[2018-07-29] MEDS: Vancomycin 750mg/NS 250ml IVPB SCH (18:25)
--- NOTE | 2018-07-29 18:30 | Procedure Note ---
DATE OF PROCEDURE: 07/29/2018 SURGEON: Beau Borja M.D. PROCEDURE: Upper endoscopy with G-tube placement. ANESTHESIA: . INSTRUMENT USED: Olympus adult flexible upper endoscope. INDICATION: Dysphagia. DESCRIPTION OF PROCEDURE: After informed consent was obtained and the patient was adequately sedated, Olympus upper endoscope was advanced from the mouth into the second portion of the duodenum and retroflexion was performed in the stomach.. Then, under endoscopic guidance under sterile condition, a 20-[place] pull type of G-tube was successfully in the epigastric area. The distance from the tip of the tube to skin was 2.5 cm in size. The patient tolerated the procedure very well without any complication. RECOMMENDATIONS: Start tube feeding. Abdominal binder G-tube flush. G-tube care. I want to thank Dr. Jamia Wu for this kind referral. Beau Borja M.D. DR: BRIJESH JOB#: [id number] CC: Jamia Wu M.D.; Fax#: [phone]
--- NOTE | 2018-07-29 22:07 | General Progress Note ---
Assessment/Plan Problem List: (1) Cachexia ICD Codes: R64 - Cachexia SNOMED: 399161897 (2) Decubitus skin ulcer ICD Codes: L89.90 - Pressure ulcer of unspecified site, unspecified stage SNOMED: 667494878 (3) Proteinuria ICD Codes: R80.9 - Proteinuria, unspecified SNOMED: 37947788 (4) Functional quadriplegia ICD Codes: R53.2 - Functional quadriplegia SNOMED: 279092713928535 (5) Sepsis ICD Codes: A41.9 - Sepsis, unspecified organism SNOMED: 75445818 (6) PNA (pneumonia) ICD Codes: J18.9 - Pneumonia, unspecified organism SNOMED: 412168908 (7) Sacral decubitus ulcer, stage IV ICD Codes: L89.154 - Pressure ulcer of sacral region, stage 4 SNOMED: 067680143, 235424862 (8) Dementia ICD Codes: F03.90 - Unspecified dementia without behavioral disturbance SNOMED: 42103219 Status: progressing Assessment/Plan daughter wants hospice and comfort care anemia pna sepsis peg is in by dr venegas afebrile Subjective ROS Limited/Unobtainable: Yes Allergies: Coded Allergies: CEFTRIAXONE (Verified Allergy, Unknown, 07/28/18) rash reaction Objective Last 24 Hour Vital Signs Date Time Temp Pulse Resp B/P (MAP) Pulse Ox O2 Delivery O2 Flow Rate FiO2 07/29/18 20:25 88 18 98 Nasal Cannula 3.0 32 07/29/18 20:13 98 20 96 Nasal Cannula 3.0 32 07/29/18 20:13 Nasal Cannula 3.0 32 07/29/18 20:13 96 Nasal Cannula 3.0 32 07/29/18 20:00 97.4 98 21 125/67 (86) 96 07/29/18 16:00 98.0 101 18 118/67 (84) 97 07/29/18 14:42 Nasal Cannula 3.0 32 07/29/18 14:42 Nasal Cannula 3.0 32 07/29/18 13:22 81 18 95 07/29/18 13:20 88 18 93 07/29/18 12:45 98.5 86 20 115/69 99 Nasal Cannula 3 07/29/18 12:35 87 16 111/85 97 Nasal Cannula 3 07/29/18 12:25 90 15 115/68 97 Nasal Cannula 3 07/29/18 12:20 84 17 115/64 98 Nasal Cannula 3 07/29/18 12:15 98.0 88 18 99/67 98 Nasal Cannula 3 07/29/18 11:47 97.8 95 18 111/85 (94) 100 07/29/18 09:00 Nasal Cannula 2.0 07/29/18 08:00 98.2 82 18 109/89 (96) 100 07/29/18 08:00 83 22 99 Nasal Cannula 3.0 32 07/29/18 07:57 Nasal Cannula 3.0 32 07/29/18 07:57 94 Nasal Cannula 3.0 32 07/29/18 07:55 81 20 94 Nasal Cannula 3.0 32 07/29/18 04:00 97.6 81 18 106/68 (81) 100 07/29/18 00:00 97.0 82 20 118/71 (87) 99 07/28/18 23:52 84 22 99 Nasal Cannula 3.0 32 07/28/18 23:42 84 22 98 Venturi Mask 12.0 50 Intake and Output 07/28/18 07/29/18 18:59 06:59 Intake Total 437.5 ml Output Total 750 ml 450 ml Balance -750 ml -12.5 ml Intake IV Total 437.5 ml Output Urine Total 750 ml 450 ml Laboratory Tests 07/29/18 05:40: White Blood Count 7.9, Red Blood Count 3.08L, Hemoglobin 8.1L, Hematocrit 26.6L , Mean Corpuscular Volume 86, Mean Corpuscular Hemoglobin 26.4L, Mean Corpuscular Hemoglobin Concent 30.7L, Red Cell Distribution Width 16.9H, Platelet Count 462H, Mean Platelet Volume 6.1L, Neutrophils (%) (Auto) , Lymphocytes (%) (Auto) , Monocytes (%) (Auto) , Eosinophils (%) (Auto) , Basophils (%) (Auto) , Differential Total Cells Counted 100, Neutrophils % ( Manual) 39L, Lymphocytes % (Manual) 22, Monocytes % (Manual) 3, Eosinophils % ( Manual) 34H, Basophils % (Manual) 2, Band Neutrophils 0, Platelet Estimate Adequate, Platelet Morphology Normal, Hypochromasia 2+, Anisocytosis 1+, Reticulocyte Count 1.6, Prothrombin Time 11.7H, Prothromb Time International Ratio 1.1, Activated Partial Thromboplast Time 30, Sodium Level 141, Potassium Level 3.8, Chloride Level 105, Carbon Dioxide Level 28, Anion Gap 8, Blood Urea Nitrogen 15, Creatinine 0.6, Estimat Glomerular Filtration Rate > 60, Glucose Level 112H, Calcium Level 9.2, Iron Level 27L, Total Iron Binding Capacity 120L , Percent Iron Saturation 23, Unsaturated Iron Binding 93L, Ferritin 292, Total Bilirubin 0.3, Aspartate Amino Transf (AST/SGOT) 16, Alanine Aminotransferase ( ALT/SGPT) 14, Alkaline Phosphatase 89, Total Protein 9.5H, Albumin 2.1L, Globulin 7.4, Albumin/Globulin Ratio 0.3L, Carcinoembryonic Antigen [Pending], Vitamin B12 Level 1512H, Folate 37.3, Thyroid Stimulating Hormone (TSH) 1.084, Free Thyroxine 1.19 Height (Feet): 5 Height (Inches): 7.00 Weight (Pounds): 100 General Appearance: lethargic, confused Jamia Wu MD Jul 29, 2018 22:07
--- NOTE | 2018-07-29 23:46 | General Progress Note ---
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 Assessment/Plan Seroquel prn lacks capacity provided ro/st Subjective Date patient seen: Jul 29, 2018 Neurologic/Psychiatric: Reports: anxiety, depressed, emotional problems Allergies: Coded Allergies: CEFTRIAXONE (Verified Allergy, Unknown, 07/28/18) rash reaction Subjective the pt is nonverbal and flail Objective Last 24 Hour Vital Signs Date Time Temp Pulse Resp B/P (MAP) Pulse Ox O2 Delivery O2 Flow Rate FiO2 07/29/18 21:00 Nasal Cannula 2.0 07/29/18 20:25 88 18 98 Nasal Cannula 3.0 32 07/29/18 20:13 98 20 96 Nasal Cannula 3.0 32 07/29/18 20:13 Nasal Cannula 3.0 32 07/29/18 20:13 96 Nasal Cannula 3.0 32 07/29/18 20:00 97.4 98 21 125/67 (86) 96 07/29/18 16:00 98.0 101 18 118/67 (84) 97 07/29/18 14:42 Nasal Cannula 3.0 32 07/29/18 14:42 Nasal Cannula 3.0 32 07/29/18 13:22 81 18 95 07/29/18 13:20 88 18 93 07/29/18 12:45 98.5 86 20 115/69 99 Nasal Cannula 3 07/29/18 12:35 87 16 111/85 97 Nasal Cannula 3 07/29/18 12:25 90 15 115/68 97 Nasal Cannula 3 07/29/18 12:20 84 17 115/64 98 Nasal Cannula 3 07/29/18 12:15 98.0 88 18 99/67 98 Nasal Cannula 3 07/29/18 11:47 97.8 95 18 111/85 (94) 100 07/29/18 09:00 Nasal Cannula 2.0 07/29/18 08:00 98.2 82 18 109/89 (96) 100 07/29/18 08:00 83 22 99 Nasal Cannula 3.0 32 07/29/18 07:57 Nasal Cannula 3.0 32 07/29/18 07:57 94 Nasal Cannula 3.0 32 07/29/18 07:55 81 20 94 Nasal Cannula 3.0 32 07/29/18 04:00 97.6 81 18 106/68 (81) 100 07/29/18 00:00 97.0 82 20 118/71 (87) 99 07/28/18 23:52 84 22 99 Nasal Cannula 3.0 32 Intake and Output 07/28/18 07/29/18 18:59 06:59 Intake Total 437.5 ml Output Total 750 ml 450 ml Balance -750 ml -12.5 ml IV Total 437.5 ml Output Urine Total 750 ml 450 ml Laboratory Tests 07/29/18 05:40: White Blood Count 7.9, Red Blood Count 3.08L, Hemoglobin 8.1L, Hematocrit 26.6L , Mean Corpuscular Volume 86, Mean Corpuscular Hemoglobin 26.4L, Mean Corpuscular Hemoglobin Concent 30.7L, Red Cell Distribution Width 16.9H, Platelet Count 462H, Mean Platelet Volume 6.1L, Neutrophils (%) (Auto) , Lymphocytes (%) (Auto) , Monocytes (%) (Auto) , Eosinophils (%) (Auto) , Basophils (%) (Auto) , Differential Total Cells Counted 100, Neutrophils % ( Manual) 39L, Lymphocytes % (Manual) 22, Monocytes % (Manual) 3, Eosinophils % ( Manual) 34H, Basophils % (Manual) 2, Band Neutrophils 0, Platelet Estimate Adequate, Platelet Morphology Normal, Hypochromasia 2+, Anisocytosis 1+, Reticulocyte Count 1.6, Prothrombin Time 11.7H, Prothromb Time International Ratio 1.1, Activated Partial Thromboplast Time 30, Sodium Level 141, Potassium Level 3.8, Chloride Level 105, Carbon Dioxide Level 28, Anion Gap 8, Blood Urea Nitrogen 15, Creatinine 0.6, Estimat Glomerular Filtration Rate > 60, Glucose Level 112H, Calcium Level 9.2, Iron Level 27L, Total Iron Binding Capacity 120L , Percent Iron Saturation 23, Unsaturated Iron Binding 93L, Ferritin 292, Total Bilirubin 0.3, Aspartate Amino Transf (AST/SGOT) 16, Alanine Aminotransferase ( ALT/SGPT) 14, Alkaline Phosphatase 89, Total Protein 9.5H, Albumin 2.1L, Globulin 7.4, Albumin/Globulin Ratio 0.3L, Carcinoembryonic Antigen [Pending], Vitamin B12 Level 1512H, Folate 37.3, Thyroid Stimulating Hormone (TSH) 1.084, Free Thyroxine 1.19 Height (Feet): 5 Height (Inches): 7.00 Weight (Pounds): 100 General Appearance: alert, confused, agitated Shawn Meza MD Jul 29, 2018 23:46
[2018-07-30] VITALS: BP 107/54
[2018-07-30] MEDS: Ipratropium 0.02% Inh Soln 2.5ml UD HHN SCH ×4 (01:32→19:28)
[2018-07-30] MEDS: D5NS 1,000 ML IV SCH ×3 (02:45→20:59)
[2018-07-30 04:00] VITALS: BP 123/86
[2018-07-30] MEDS: Piperacillin/Tazobactam 3.375 GM in D5W 110 ML IVPB SCH ×3 (05:02→22:26)
[2018-07-30 07:16] LABS: BASOPHILS % (AUTO) 0.9 % (0.0-2.0); EOSINOPHILS % (AUTO) 16.4 % (0.0-3.0); HEMATOCRIT 26.3 % (42.0-52.0); LYMPHOCYTES % (AUTO) 20.9 % (20.0-45.0); MEAN CORPUSCULAR VOLUME 89 FL (80-99); MONOCYTES % (AUTO) 5.3 % (1.0-10.0); NEUTROPHILS % (AUTO) 56.5 % (45.0-75.0); PLATELET COUNT 478 K/UL (150-450); RED BLOOD COUNT 2.97 M/UL (4.70-6.10); RED CELL DISTRIBUTION WIDTH 16.6 % (11.6-14.8); WHITE BLOOD COUNT 7.4 K/UL (4.8-10.8)
[2018-07-30 07:34] LABS: ANION GAP 7 mmol/L (5-15); BLOOD UREA NITROGEN 16 mg/dL (7-18); CALCIUM 8.8 MG/DL (8.5-10.1); CARBON DIOXIDE 29 MMOL/L (21-32); CHLORIDE 104 MMOL/L (98-107); CREATININE 0.6 MG/DL (0.55-1.30); POTASSIUM 3.3 MMOL/L (3.5-5.1); SODIUM 140 MMOL/L (136-145)
--- NOTE | 2018-07-30 07:44 | Cardiology Report ---
APPROVED REPORT EKG Measurement Heart [id number] [id number] Sinus tachycardia Otherwise normal ECG
[2018-07-30 08:00] VITALS: BP 122/88
[2018-07-30] MEDS: Heparin 5000 units/ml inj SUBQ SCH ×2 (10:41→21:03)
[2018-07-30 12:00] VITALS: BP 111/62
--- NOTE | 2018-07-30 12:20 | GI Progress Note ---
Assessment/Plan Problems: (1) Dementia ICD Codes: F03.90 - Unspecified dementia without behavioral disturbance SNOMED: 84839240 (2) Anemia ICD Codes: D64.9 - Anemia, unspecified SNOMED: 999848774 (3) Severe malnutrition ICD Codes: E43 - Unspecified severe protein-calorie malnutrition SNOMED: 37038157 (4) Dysphagia ICD Codes: R13.10 - Dysphagia, unspecified SNOMED: 61666564, 960974085 (5) PEG tube malfunction ICD Codes: K94.23 - Gastrostomy malfunction SNOMED: 513644361 Status: stable Status Narrative Discussed with Dr. Borja. Assessment/Plan s/p PEG, GT replacement GTFs per RD to goal GT site care daily / prn supportive care per family wishes fu labs dc planning The patient was seen and examined at bedside and all new and available data was reviewed in the patients chart. I agree with the above findings, impression and plan. (Patient seen earlier today. Signature stamp does not reflect patient encounter time.). - Beau Borja MD Subjective Subjective limited Objective Last 24 Hour Vital Signs Date Time Temp Pulse Resp B/P (MAP) Pulse Ox O2 Delivery O2 Flow Rate FiO2 07/30/18 09:00 Nasal Cannula 2.0 07/30/18 08:00 98.1 76 20 122/88 (99) 100 07/30/18 07:40 95 18 98 Nasal Cannula 3.0 32 07/30/18 07:30 95 Nasal Cannula 3.0 32 07/30/18 07:30 90 20 95 Nasal Cannula 3.0 32 07/30/18 07:30 Nasal Cannula 3.0 32 07/30/18 04:00 98.0 89 19 123/86 (98) 99 07/30/18 01:43 88 18 98 Nasal Cannula 3.0 32 07/30/18 01:32 86 20 95 Nasal Cannula 3.0 32 07/30/18 00:00 97.8 90 20 107/54 (71) 95 07/29/18 21:00 Nasal Cannula 2.0 07/29/18 20:25 88 18 98 Nasal Cannula 3.0 32 07/29/18 20:13 98 20 96 Nasal Cannula 3.0 32 07/29/18 20:13 Nasal Cannula 3.0 32 12/18/18 20:13 96 Nasal Cannula 3.0 32 07/29/18 20:00 97.4 98 21 125/67 (86) 96 07/29/18 16:00 98.0 101 18 118/67 (84) 97 07/29/18 14:42 Nasal Cannula 3.0 32 07/29/18 14:42 Nasal Cannula 3.0 32 07/29/18 13:22 81 18 95 07/29/18 13:20 88 18 93 07/29/18 12:45 98.5 86 20 115/69 99 Nasal Cannula 3 07/29/18 12:35 87 16 111/85 97 Nasal Cannula 3 07/29/18 12:25 90 15 115/68 97 Nasal Cannula 3 07/29/18 12:20 84 17 115/64 98 Nasal Cannula 3 Intake and Output 07/29/18 07/30/18 19:00 07:00 Intake Total 310.0 ml 1667.500 ml Output Total 300 ml 920 ml Balance 10.0 ml 747.500 ml Intake Free Water 300 ml IV Total 290.0 ml 767.500 ml Tube Feeding 20 ml 600 ml Output Urine Total 300 ml 920 ml # Bowel Movements 1 Laboratory Tests Test 07/30/18 05:10 07/30/18 06:00 White Blood Count 7.4 K/UL (4.8-10.8) Red Blood Count 2.97 M/UL (4.70-6.10) L Hemoglobin 8.0 G/DL (14.2-18.0) L Hematocrit 26.3 % (42.0-52.0) L Mean Corpuscular Volume 89 FL (80-99) Mean Corpuscular Hemoglobin 26.9 PG (27.0-31.0) L Mean Corpuscular Hemoglobin Concent 30.3 G/DL (32.0-36.0) L Red Cell Distribution Width 16.6 % (11.6-14.8) H Platelet Count 478 K/UL (150-450) H Mean Platelet Volume 6.0 FL (6.5-10.1) L Neutrophils (%) (Auto) 56.5 % (45.0-75.0) Lymphocytes (%) (Auto) 20.9 % (20.0-45.0) Monocytes (%) (Auto) 5.3 % (1.0-10.0) Eosinophils (%) (Auto) 16.4 % (0.0-3.0) H Basophils (%) (Auto) 0.9 % (0.0-2.0) Sodium Level 140 MMOL/L (136-145) Potassium Level 3.3 MMOL/L (3.5-5.1) L Chloride Level 104 MMOL/L (98-107) Carbon Dioxide Level 29 MMOL/L (21-32) Anion Gap 7 mmol/L (5-15) Blood Urea Nitrogen 16 mg/dL (7-18) Creatinine 0.6 MG/DL (0.55-1.30) Estimat Glomerular Filtration Rate > 60 mL/min (>60) Glucose Level 221 MG/DL (74-106) #H Calcium Level 8.8 MG/DL (8.5-10.1) Stool Occult Blood Negative (NEGATIVE) Height (Feet): 5 Height (Inches): 7.00 Weight (Pounds): 141 General Appearance: WD/WN, no apparent distress, alert Cardiovascular: normal rate Respiratory/Chest: normal breath sounds, no respiratory distress Abdominal Exam: normal bowel sounds, non tender, soft, GT site - c/d/i Extremities: normal range of motion, non-tender Anthony Andres NP Jul 30, 2018 12:19
--- NOTE | 2018-07-30 14:08 | Infectious Diseases Prog Note ---
Assessment/Plan Assessment/Plan A; Sepsis Pneumonia UTI with Providencia Dislodged GT, replaced Mild abdominal wall cellulitis DM Pressure ulcer Dementia P; Continue Zosyn & Vancomycin in hospital Will f/u cultures Subjective ROS Limited/Unobtainable: Yes Constitutional: Reports: no symptoms Allergies: Coded Allergies: CEFTRIAXONE (Verified Allergy, Unknown, 07/28/18) rash reaction Objective Vital Signs Last 24 Hour Vital Signs Date Time Temp Pulse Resp B/P (MAP) Pulse Ox O2 Delivery O2 Flow Rate FiO2 07/30/18 13:57 85 20 96 Nasal Cannula 3.0 32 07/30/18 09:00 Nasal Cannula 2.0 07/30/18 08:00 98.1 76 20 122/88 (99) 100 07/30/18 07:40 95 18 98 Nasal Cannula 3.0 32 07/30/18 07:30 95 Nasal Cannula 3.0 32 07/30/18 07:30 90 20 95 Nasal Cannula 3.0 32 07/30/18 07:30 Nasal Cannula 3.0 32 07/30/18 04:00 98.0 89 19 123/86 (98) 99 07/30/18 01:43 88 18 98 Nasal Cannula 3.0 32 07/30/18 01:32 86 20 95 Nasal Cannula 3.0 32 07/30/18 00:00 97.8 90 20 107/54 (71) 95 07/29/18 21:00 Nasal Cannula 2.0 07/29/18 20:25 88 18 98 Nasal Cannula 3.0 32 07/29/18 20:13 98 20 96 Nasal Cannula 3.0 32 07/29/18 20:13 Nasal Cannula 3.0 32 07/29/18 20:13 96 Nasal Cannula 3.0 32 07/29/18 20:00 97.4 98 21 125/67 (86) 96 07/29/18 16:00 98.0 101 18 118/67 (84) 97 07/29/18 14:42 Nasal Cannula 3.0 32 07/29/18 14:42 Nasal Cannula 3.0 32 Height (Feet): 5 Height (Inches): 7.00 Weight (Pounds): 141 HEENT: mucous membranes moist Respiratory/Chest: lungs clear Cardiovascular: normal rate Abdomen: soft, non tender, other - GT feeding Extremities: no edema Skin: ulcers Neurologic/Psychiatric: aphasia Microbiology Date/Time Source Procedure Growth Status 07/27/18 18:05 Blood Blood Culture - Preliminary NO GROWTH AFTER 48 HOURS Resulted 07/27/18 17:50 Blood Blood Culture - Preliminary NO GROWTH AFTER 48 HOURS Resulted 07/27/18 18:27 Urine,Clean Catch Urine Culture - Final Providencia Stuartii Complete 07/28/18 01:00 Hip Right Gram Stain - Final Resulted 07/28/18 01:00 Wound Culture - Preliminary Gram Negative Bacillus 1 Resulted 07/28/18 01:00 Hip Left Gram Stain - Final Resulted 07/28/18 01:00 Wound Culture - Preliminary Gram Negative Bacillus 1 Gram Negative Bacillus 2 Resulted 07/28/18 01:00 Sacral Wound Gram Stain - Final Resulted 07/28/18 01:00 Wound Culture - Preliminary Gram Negative Bacillus 1 Gram Negative Bacillus 2 Resulted Laboratory Tests Test 07/30/18 05:10 07/30/18 06:00 White Blood Count 7.4 K/UL (4.8-10.8) Red Blood Count 2.97 M/UL (4.70-6.10) L Hemoglobin 8.0 G/DL (14.2-18.0) L Hematocrit 26.3 % (42.0-52.0) L Mean Corpuscular Volume 89 FL (80-99) Mean Corpuscular Hemoglobin 26.9 PG (27.0-31.0) L Mean Corpuscular Hemoglobin Concent 30.3 G/DL (32.0-36.0) L Red Cell Distribution Width 16.6 % (11.6-14.8) H Platelet Count 478 K/UL (150-450) H Mean Platelet Volume 6.0 FL (6.5-10.1) L Neutrophils (%) (Auto) 56.5 % (45.0-75.0) Lymphocytes (%) (Auto) 20.9 % (20.0-45.0) Monocytes (%) (Auto) 5.3 % (1.0-10.0) Eosinophils (%) (Auto) 16.4 % (0.0-3.0) H Basophils (%) (Auto) 0.9 % (0.0-2.0) Sodium Level 140 MMOL/L (136-145) Potassium Level 3.3 MMOL/L (3.5-5.1) L Chloride Level 104 MMOL/L (98-107) Carbon Dioxide Level 29 MMOL/L (21-32) Anion Gap 7 mmol/L (5-15) Blood Urea Nitrogen 16 mg/dL (7-18) Creatinine 0.6 MG/DL (0.55-1.30) Estimat Glomerular Filtration Rate > 60 mL/min (>60) Glucose Level 221 MG/DL (74-106) #H Calcium Level 8.8 MG/DL (8.5-10.1) Stool Occult Blood Negative (NEGATIVE) Current Medications Medications (Trade) Dose Ordered Sig/Briseida Route PRN Reason Start Time Stop Time Status Last Admin Dose Admin Acetaminophen (Tylenol) 650 mg Q6HR PRN RECTAL fever T>100.5 07/28/18 01:00 08/27/18 00:59 Dextrose/Sodium Chloride 1,000 ml @ 60 mls/hr [id number] IV 07/28/18 01:00 08/27/18 00:59 07/30/18 03:16 Heparin Sodium (Porcine) (Heparin 5000 units/ml) 5,000 units EVERY 12 HOURS SUBQ 07/28/18 09:00 08/27/18 08:59 07/30/18 10:41 Ipratropium [place] (Atrovent) 500 mcg Q6HRT HHN 07/27/18 22:15 08/01/18 22:14 07/30/18 13:56 Morphine Sulfate (Morphine Sulfate) 2 mg Q6H PRN IVP For severe pain 07/28/18 01:00 08/04/18 00:59 Ondansetron HCl (Zofran) 4 mg Q8H PRN IVP Nausea & Vomiting 07/28/18 01:00 08/27/18 00:59 Piperacillin Sod/ Tazobactam Sod 3.375 gm/Dextrose 110 ml @ 27.5 mls/hr Q8HR IVPB 07/28/18 14:00 08/04/18 13:59 07/30/18 05:02 Vancomycin HCl (Vanco rx to dose) 1 ea DAILY PRN MISC Per rx protocol 07/28/18 01:00 08/27/18 00:59 Vancomycin/Sodium Chloride 250 ml @ 166.667 mls/hr Q24H IVPB 07/28/18 18:00 08/02/18 17:59 07/29/18 18:25 Herson Palmer MD Jul 30, 2018 14:08
--- NOTE | 2018-07-30 15:18 | General Progress Note ---
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 Status: unchanged Assessment/Plan Seroquel prn lacks capacity provided ro/st Subjective Date patient seen: Jul 30, 2018 Neurologic/Psychiatric: Reports: anxiety, depressed, emotional problems Allergies: Coded Allergies: CEFTRIAXONE (Verified Allergy, Unknown, 07/28/18) rash reaction Subjective the pt is nonverbal and flail Objective Last 24 Hour Vital Signs Date Time Temp Pulse Resp B/P (MAP) Pulse Ox O2 Delivery O2 Flow Rate FiO2 07/30/18 14:06 92 18 97 Nasal Cannula 3.0 32 07/30/18 13:57 85 20 96 Nasal Cannula 3.0 32 07/30/18 12:00 99.0 85 19 111/62 (78) 100 07/30/18 09:00 Nasal Cannula 2.0 07/30/18 08:00 98.1 76 20 122/88 (99) 100 07/30/18 07:40 95 18 98 Nasal Cannula 3.0 32 07/30/18 07:30 95 Nasal Cannula 3.0 32 07/30/18 07:30 90 20 95 Nasal Cannula 3.0 32 07/30/18 07:30 Nasal Cannula 3.0 32 07/30/18 04:00 98.0 89 19 123/86 (98) 99 07/30/18 01:43 88 18 98 Nasal Cannula 3.0 32 07/30/18 01:32 86 20 95 Nasal Cannula 3.0 32 07/30/18 00:00 97.8 90 20 107/54 (71) 95 07/29/18 21:00 Nasal Cannula 2.0 07/29/18 20:25 88 18 98 Nasal Cannula 3.0 32 07/29/18 20:13 98 20 96 Nasal Cannula 3.0 32 07/29/18 20:13 Nasal Cannula 3.0 32 07/29/18 20:13 96 Nasal Cannula 3.0 32 07/29/18 20:00 97.4 98 21 125/67 (86) 96 07/29/18 16:00 98.0 101 18 118/67 (84) 97 Intake and Output 07/29/18 07/30/18 19:00 07:00 Intake Total 310.0 ml 1667.500 ml Output Total 300 ml 920 ml Balance 10.0 ml 747.500 ml Intake Free Water 300 ml IV Total 290.0 ml 767.500 ml Tube Feeding 20 ml 600 ml Output Urine Total 300 ml 920 ml # Bowel Movements 1 Laboratory Tests 07/30/18 05:10: White Blood Count 7.4, Red Blood Count 2.97L, Hemoglobin 8.0L, Hematocrit 26.3L , Mean Corpuscular Volume 89, Mean Corpuscular Hemoglobin 26.9L, Mean Corpuscular Hemoglobin Concent 30.3L, Red Cell Distribution Width 16.6H, Platelet Count 478H, Mean Platelet Volume 6.0L, Neutrophils (%) (Auto) 56.5, Lymphocytes (%) (Auto) 20.9, Monocytes (%) (Auto) 5.3, Eosinophils (%) (Auto) 16.4H, Basophils (%) (Auto) 0.9, Sodium Level 140, Potassium Level 3.3L, Chloride Level 104, Carbon Dioxide Level 29, Anion Gap 7, Blood Urea Nitrogen 16 , Creatinine 0.6, Estimat Glomerular Filtration Rate > 60, Glucose Level 221#H, Calcium Level 8.8 07/30/18 06:00: Stool Occult Blood Negative Height (Feet): 5 Height (Inches): 7.00 Weight (Pounds): 141 General Appearance: alert, confused, agitated Shawn Meza MD Jul 30, 2018 15:18
[2018-07-30 16:00] VITALS: BP 114/62
[2018-07-30 20:00] VITALS: BP 126/73
[2018-07-30] MEDS: Vancomycin 500mg/D5W 110ml IVPB SCH ×2 (20:59)
--- NOTE | 2018-07-30 21:35 | General Progress Note ---
Assessment/Plan Problem List: (1) Cachexia ICD Codes: R64 - Cachexia SNOMED: 064213152 (2) Decubitus skin ulcer ICD Codes: L89.90 - Pressure ulcer of unspecified site, unspecified stage SNOMED: 986498077 (3) Proteinuria ICD Codes: R80.9 - Proteinuria, unspecified SNOMED: 80093069 (4) Functional quadriplegia ICD Codes: R53.2 - Functional quadriplegia SNOMED: 789473932761519 (5) Sepsis ICD Codes: A41.9 - Sepsis, unspecified organism SNOMED: 37892846 (6) PNA (pneumonia) ICD Codes: J18.9 - Pneumonia, unspecified organism SNOMED: 224988521 (7) Sacral decubitus ulcer, stage IV ICD Codes: L89.154 - Pressure ulcer of sacral region, stage 4 SNOMED: 339336498, 909040314 (8) Dementia ICD Codes: F03.90 - Unspecified dementia without behavioral disturbance SNOMED: 55758161 Status: progressing Assessment/Plan daughter wants hospice and comfort care anemia pna sepsis peg is in by dr venegas SPOKE w daughter at bedside she also agrees w her sister to have her father on hospice will dc snf in am for comfort care Subjective ROS Limited/Unobtainable: Yes Allergies: Coded Allergies: CEFTRIAXONE (Verified Allergy, Unknown, 07/28/18) rash reaction Objective Last 24 Hour Vital Signs Date Time Temp Pulse Resp B/P (MAP) Pulse Ox O2 Delivery O2 Flow Rate FiO2 07/30/18 20:00 99.2 90 20 126/73 (90) 100 07/30/18 19:36 90 18 98 Nasal Cannula 3.0 32 07/30/18 19:28 82 18 94 Nasal Cannula 3.0 32 07/30/18 19:28 94 Nasal Cannula 3.0 32 07/30/18 19:28 Nasal Cannula 3.0 32 07/30/18 16:00 99.1 88 20 114/62 (79) 100 07/30/18 14:06 92 18 97 Nasal Cannula 3.0 32 07/30/18 13:57 85 20 96 Nasal Cannula 3.0 32 07/30/18 12:00 99.0 85 19 111/62 (78) 100 07/30/18 09:00 Nasal Cannula 2.0 12/19/18 08:00 98.1 76 20 122/88 (99) 100 07/30/18 07:40 95 18 98 Nasal Cannula 3.0 32 07/30/18 07:30 95 Nasal Cannula 3.0 32 07/30/18 07:30 90 20 95 Nasal Cannula 3.0 32 07/30/18 07:30 Nasal Cannula 3.0 32 07/30/18 04:00 98.0 89 19 123/86 (98) 99 07/30/18 01:43 88 18 98 Nasal Cannula 3.0 32 07/30/18 01:32 86 20 95 Nasal Cannula 3.0 32 07/30/18 00:00 97.8 90 20 107/54 (71) 95 Intake and Output 07/29/18 07/30/18 18:59 06:59 Intake Total 290.0 ml 1687.500 ml Output Total 300 ml 920 ml Balance -10.0 ml 767.500 ml Intake Free Water 300 ml IV Total 290.0 ml 767.500 ml Tube Feeding 620 ml Output Urine Total 300 ml 920 ml # Bowel Movements 1 Laboratory Tests 07/30/18 05:10: White Blood Count 7.4, Red Blood Count 2.97L, Hemoglobin 8.0L, Hematocrit 26.3L , Mean Corpuscular Volume 89, Mean Corpuscular Hemoglobin 26.9L, Mean Corpuscular Hemoglobin Concent 30.3L, Red Cell Distribution Width 16.6H, Platelet Count 478H, Mean Platelet Volume 6.0L, Neutrophils (%) (Auto) 56.5, Lymphocytes (%) (Auto) 20.9, Monocytes (%) (Auto) 5.3, Eosinophils (%) (Auto) 16.4H, Basophils (%) (Auto) 0.9, Sodium Level 140, Potassium Level 3.3L, Chloride Level 104, Carbon Dioxide Level 29, Anion Gap 7, Blood Urea Nitrogen 16 , Creatinine 0.6, Estimat Glomerular Filtration Rate > 60, Glucose Level 221#H, Calcium Level 8.8 07/30/18 06:00: Stool Occult Blood Negative 07/30/18 16:45: Vancomycin Level Trough 7.5 Height (Feet): 5 Height (Inches): 7.00 Weight (Pounds): 141 General Appearance: lethargic, confused Abdomen: soft Jamia Wu MD Jul 30, 2018 21:34
--- NOTE | 2018-07-30 23:43 | Pulmonology Progress Note ---
Assessment/Plan Assessment/Plan Pulmonary Progress Note Chief Complaint: Fever, dislodged G tube Patient is a frail elderly [facility] resident admitted s/p dislodgement of G tube, worsening respiratory distress, felt to have possible aspiration pneumonia. Patient is DNAR/DNI Improved Pulmonary Status PMH: Dementia, HTN, Asthma, Previous CVA, s/p G tube - now reinserted Allergies: CEFTRIAXONE (Verified Allergy, Unknown, 04/04/18) Physical Exam Vital Signs Noted Elderly wasted man, contarctures, chronically ill appearing HEENT: NCAT, dry MM, JVP not elevated Chest: bilateral rhonchi Heart: HS1, HS2 RRR Abdo: Soft, ND, NT, G tube site appears infected Extrem: Wasted, no edema ACID CLEANER: Generally weak, no response to command, no seizures Last Vital Signs Date Time Temp Pulse Resp B/P (MAP) Pulse Ox O2 Delivery O2 Flow Rate FiO2 07/27/18 17:23 101.0 116 21 112/81 98 Nasal Cannula 4.0 Impression: GTube dislodgement, with possible cellulitis Aspiration Pneumonia Dementia HTN Asthma Previous CVA DNR/DNI Plan: IV Zosyn, Vanco, levaquin IVF HHN/CPT Q6 Aspiration precautions Pain meds Comfort meds Await reinsertion G-tube by GI O2 PRN SQ Heparin Labs CXR Subjective ROS Limited/Unobtainable: No Allergies: Coded Allergies: CEFTRIAXONE (Verified Allergy, Unknown, 07/28/18) rash reaction Objective Last 24 Hour Vital Signs Date Time Temp Pulse Resp B/P (MAP) Pulse Ox O2 Delivery O2 Flow Rate FiO2 07/30/18 20:00 99.2 90 20 126/73 (90) 100 07/30/18 19:36 90 18 98 Nasal Cannula 3.0 32 07/30/18 19:28 82 18 94 Nasal Cannula 3.0 32 07/30/18 19:28 94 Nasal Cannula 3.0 32 07/30/18 19:28 Nasal Cannula 3.0 32 07/30/18 16:00 99.1 88 20 114/62 (79) 100 07/30/18 14:06 92 18 97 Nasal Cannula 3.0 32 07/30/18 13:57 85 20 96 Nasal Cannula 3.0 32 07/30/18 12:00 99.0 85 19 111/62 (78) 100 07/30/18 09:00 Nasal Cannula 2.0 07/30/18 08:00 98.1 76 20 122/88 (99) 100 07/30/18 07:40 95 18 98 Nasal Cannula 3.0 32 07/30/18 07:30 95 Nasal Cannula 3.0 32 07/30/18 07:30 90 20 95 Nasal Cannula 3.0 32 07/30/18 07:30 Nasal Cannula 3.0 32 07/30/18 04:00 98.0 89 19 123/86 (98) 99 07/30/18 01:43 88 18 98 Nasal Cannula 3.0 32 07/30/18 01:32 86 20 95 Nasal Cannula 3.0 32 07/30/18 00:00 97.8 90 20 107/54 (71) 95 Intake and Output 07/29/18 07/30/18 18:59 06:59 Intake Total 290.0 ml 1687.500 ml Output Total 300 ml 920 ml Balance -10.0 ml 767.500 ml Intake Free Water 300 ml IV Total 290.0 ml 767.500 ml Tube Feeding 620 ml Output Urine Total 300 ml 920 ml # Bowel Movements 1 Microbiology Date/Time Source Procedure Growth Status 07/28/18 01:00 Hip Right Gram Stain - Final Resulted 07/28/18 01:00 Wound Culture - Preliminary Gram Negative Bacillus 1 Resulted 07/28/18 01:00 Hip Left Gram Stain - Final Resulted 07/28/18 01:00 Wound Culture - Preliminary Gram Negative Bacillus 1 Gram Negative Bacillus 2 Resulted 07/28/18 01:00 Sacral Wound Gram Stain - Final Resulted 07/28/18 01:00 Wound Culture - Preliminary Gram Negative Bacillus 1 Gram Negative Bacillus 2 Resulted Laboratory Tests 07/30/18 05:10: White Blood Count 7.4, Red Blood Count 2.97L, Hemoglobin 8.0L, Hematocrit 26.3L , Mean Corpuscular Volume 89, Mean Corpuscular Hemoglobin 26.9L, Mean Corpuscular Hemoglobin Concent 30.3L, Red Cell Distribution Width 16.6H, Platelet Count 478H, Mean Platelet Volume 6.0L, Neutrophils (%) (Auto) 56.5, Lymphocytes (%) (Auto) 20.9, Monocytes (%) (Auto) 5.3, Eosinophils (%) (Auto) 16.4H, Basophils (%) (Auto) 0.9, Sodium Level 140, Potassium Level 3.3L, Chloride Level 104, Carbon Dioxide Level 29, Anion Gap 7, Blood Urea Nitrogen 16 , Creatinine 0.6, Estimat Glomerular Filtration Rate > 60, Glucose Level 221#H, Calcium Level 8.8 07/30/18 06:00: Stool Occult Blood Negative 07/30/18 16:45: Vancomycin Level Trough 7.5 Current Medications Medications (Trade) Dose Ordered Sig/Briseida Route PRN Reason Start Time Stop Time Status Last Admin Dose Admin Acetaminophen (Tylenol) 650 mg Q6HR PRN RECTAL fever T>100.5 07/28/18 01:00 08/27/18 00:59 Dextrose/Sodium Chloride 1,000 ml @ 60 mls/hr [id number] IV 07/28/18 01:00 08/27/18 00:59 07/30/18 20:59 Heparin Sodium (Porcine) (Heparin 5000 units/ml) 5,000 units EVERY 12 HOURS SUBQ 07/28/18 09:00 08/27/18 08:59 07/30/18 21:03 Ipratropium [place] (Atrovent) 500 mcg Q6HRT HHN 07/27/18 22:15 08/01/18 22:14 07/30/18 19:28 Morphine Sulfate (Morphine Sulfate) 2 mg Q6H PRN IVP For severe pain 07/28/18 01:00 08/04/18 00:59 Ondansetron HCl (Zofran) 4 mg Q8H PRN IVP Nausea & Vomiting 07/28/18 01:00 08/27/18 00:59 Piperacillin Sod/ Tazobactam Sod 3.375 gm/Dextrose 110 ml @ 27.5 mls/hr Q8HR IVPB 07/28/18 14:00 08/04/18 13:59 07/30/18 22:26 Vancomycin HCl (Vanco rx to dose) 1 ea DAILY PRN MISC Per rx protocol 07/28/18 01:00 08/27/18 00:59 Vancomycin HCl 500 mg/Dextrose 110 ml @ 110 mls/hr Q12H IVPB 07/30/18 20:00 08/04/18 19:59 07/30/18 20:59 Nikko Franklin MD Jul 30, 2018 23:43
[2018-07-31] VITALS (9 sets, daily range): BP systolic 99–117; BP diastolic 52–69
[2018-07-31] MEDS: Ipratropium 0.02% Inh Soln 2.5ml UD HHN SCH ×4 (01:02→19:58)
[2018-07-31] MEDS: Piperacillin/Tazobactam 3.375 GM in D5W 110 ML IVPB SCH (05:04)
[2018-07-31 06:55] LABS: BASOPHILS % (AUTO) 0.9 % (0.0-2.0); EOSINOPHILS % (AUTO) 17.7 % (0.0-3.0); HEMATOCRIT 28.3 % (42.0-52.0); HEMOGLOBIN 8.5 G/DL (14.2-18.0); LYMPHOCYTES % (AUTO) 13.7 % (20.0-45.0); MEAN CORPUSCULAR VOLUME 89 FL (80-99); MONOCYTES % (AUTO) 3.2 % (1.0-10.0); NEUTROPHILS % (AUTO) 64.6 % (45.0-75.0); PLATELET COUNT 496 K/UL (150-450); RED BLOOD COUNT 3.18 M/UL (4.70-6.10); RED CELL DISTRIBUTION WIDTH 16.7 % (11.6-14.8); WHITE BLOOD COUNT 8.1 K/UL (4.8-10.8)
[2018-07-31 07:06] LABS: INR 1.1 (0.9-1.1)
[2018-07-31 07:13] LABS: ANION GAP 5 mmol/L (5-15); BLOOD UREA NITROGEN 10 mg/dL (7-18); CALCIUM 8.5 MG/DL (8.5-10.1); CARBON DIOXIDE 30 MMOL/L (21-32); CHLORIDE 103 MMOL/L (98-107); CREATININE 0.7 MG/DL (0.55-1.30); POTASSIUM 3.3 MMOL/L (3.5-5.1); SODIUM 138 MMOL/L (136-145)
[2018-07-31] MEDS: Vancomycin 500mg/D5W 110ml IVPB SCH ×2 (08:12)
[2018-07-31] MEDS: Heparin 5000 units/ml inj SUBQ SCH (09:00)
--- NOTE | 2018-07-31 10:34 | Pre-Procedure Note/Attestation ---
Pre-Procedure Note/Attestation Complete Prior to Procedure Planned Procedure: not applicable Procedure Narrative: egd Indications for Procedure Pre-Operative Diagnosis: gib Attestation I attest that I discussed the nature of the procedure; its benefits; risks and complications; and alternatives (and the risks and benefits of such alternatives ), prior to the procedure, with the patient (or the patient's legal arborist representative). I attest that, if there was a reasonable possibility of needing a blood transfusion, the patient (or the patient's legal arborist representative) was given the [facility] standardized written summary, pursuant to the Clarence Nadir Blood Safety Act ([place] Health and Safety Code # 1645, as amended). I attest that I re-evaluated the patient just prior to the surgery and that there has been no change in the patient's H&P, except as documented below: Beau Borja MD Jul 31, 2018 10:34
[2018-07-31] MEDS ORDERED: NS 500ML IVPB ONE (10:45)
[2018-07-31] MEDS ORDERED: Lidocaine 1% MPF 10mg/ml 5ml ONE (11:00)
[2018-07-31] MEDS ORDERED: Propofol 200mg/20ml IV ONE (11:00)
--- NOTE | 2018-07-31 11:07 | Endoscopy Procedure Note ---
Endoscopy Procedure Note General Indication for Procedure: gib Procedures Performed: EGD Operative Findings/Diagnosis: no active bleed Specimen: none Pt Tolerated Procedure Well: Yes Estimated Blood Loss: none Anesthesia Anesthesiologist: elmer Anesthesia: MAC Inserted Devices Implant(s) used?: No GI Core Measures 50 yrs or older w/o bx or poly: Not Applicable 10yrs. F/U not recommended: Not Applicable Beau Borja MD Jul 31, 2018 11:07
--- NOTE | 2018-07-31 11:54 | Anethesia Preoperative Eval ---
Anesthesia Pre-op PMH/ROS General Date of Evaluation: Jul 31, 2018 Time of Evaluation: 10:52 Anesthesiologist: elmer ASA Score: ASA 3 Mallampati Score Class I : Soft palate, uvula, fauces, pillars visible Class II: Soft palate, uvula, fauces visible Class III: Soft palate, base of uvula visible Class IV: Only hard plate visible Mallampati Classification: Class II Surgeon: sue Diagnosis: melena Surgical Procedure: egd Anesthesia History: none Family History: no anesthesia problems Allergies: Coded Allergies: CEFTRIAXONE (Verified Allergy, Unknown, 07/28/18) rash reaction Medications: see eMAR Patient NPO?: Yes Past Medical History Cardiovascular: Reports: HTN Pulmonary: Reports: asthma Gastrointestinal/Genitourinary: Reports: GERD, other - uti Neurologic/Psychiatric: Reports: CVA Endocrine: Reports: DM Anesthesia Pre-op Phys. Exam Physician Exam Last Vital Signs Date Time Temp Pulse Resp B/P (MAP) Pulse Ox O2 Delivery O2 Flow Rate FiO2 07/31/18 08:22 98.1 81 18 117/59 (78) 100 07/31/18 07:27 Nasal Cannula 3.0 32 Constitutional: NAD Neurologic: other - cva Gastrointestinal: other - g-tubr Airway Exam Mallampati Score: Class II MO: limited Neck: flexible TMD: 2fb ROM: limited Teeth: missing Anesthesia Pre-op A/P Labs Hematology Test 07/31/18 06:35 White Blood Count 8.1 K/UL (4.8-10.8) Red Blood Count 3.18 M/UL (4.70-6.10) L Hemoglobin 8.5 G/DL (14.2-18.0) L Hematocrit 28.3 % (42.0-52.0) L Mean Corpuscular Volume 89 FL (80-99) Mean Corpuscular Hemoglobin 26.8 PG (27.0-31.0) L Mean Corpuscular Hemoglobin Concent 30.1 G/DL (32.0-36.0) L Red Cell Distribution Width 16.7 % (11.6-14.8) H Platelet Count 496 K/UL (150-450) H Mean Platelet Volume 5.7 FL (6.5-10.1) L Neutrophils (%) (Auto) 64.6 % (45.0-75.0) Lymphocytes (%) (Auto) 13.7 % (20.0-45.0) L Monocytes (%) (Auto) 3.2 % (1.0-10.0) Eosinophils (%) (Auto) 17.7 % (0.0-3.0) H Basophils (%) (Auto) 0.9 % (0.0-2.0) Coagulation Test 07/31/18 06:35 Prothrombin Time 11.2 SEC (9.30-11.50) Prothromb Time International Ratio 1.1 (0.9-1.1) Activated Partial Thromboplast Time 30 SEC (23-33) Chemistry Test 07/31/18 06:35 Sodium Level 138 MMOL/L (136-145) Potassium Level 3.3 MMOL/L (3.5-5.1) L Chloride Level 103 MMOL/L (98-107) Carbon Dioxide Level 30 MMOL/L (21-32) Anion Gap 5 mmol/L (5-15) Blood Urea Nitrogen 10 mg/dL (7-18) Creatinine 0.7 MG/DL (0.55-1.30) Estimat Glomerular Filtration Rate > 60 mL/min (>60) Glucose Level 242 MG/DL (74-106) H Calcium Level 8.5 MG/DL (8.5-10.1) Risk Assessment & Plan Assessment: [email or web address] Plan: mac Status Change Before Surgery: No Pre-Antibiotics Drug: Lori Gloria MD Jul 31, 2018 11:54
--- NOTE | 2018-07-31 11:55 | Immediate Post-Op Evaluation ---
Immediate Post-Op Evalulation Immediate Post-Op Evalulation Procedure: egd Date of Evaluation: Jul 31, 2018 Time of Evaluation: 11:32 IV Fluids: 75ml 0.9ns Blood Products: none Estimated Blood Loss: negligible Blood Pressure Systolic: 101 Blood Pressure Diastolic: 63 Pulse Rate: 73 Respiratory Rate: 18 O2 Sat by Pulse Oximetry: 100 Temperature (Fahrenheit): 98.1 Pain Score (1-10): 0 Nausea: No Vomiting: No Complications none Patient Status: awake, reacts, patent Hydration Status: adequate Drug: Lori Gloria MD Jul 31, 2018 11:55
--- NOTE | 2018-07-31 11:57 | 48 Hour Post Anesthesia Eval ---
Post Anesthesia Evaluation Procedure: egd Date of Evaluation: Jul 31, 2018 Time of Evaluation: 11:34 Blood Pressure Systolic: 102 0: 65 Pulse Rate: 74 Respiratory Rate: 18 Temperature (Fahrenheit): 98.1 O2 Sat by Pulse Oximetry: 100 Airway: patent Nausea: No Vomiting: No Pain Intensity: 0 Hydration Status: adequate Cardiopulmonary Status: stable Mental Status/LOC: patient returned to baseline Post-Anesthesia Complications: none Follow-up care needed: N/A Lori Barrientos MD Jul 31, 2018 11:57
[2018-07-31] MEDS ORDERED: DiphenhydrAMINE 50mg/ml Inj IVP PRN (12:00)
[2018-07-31] MEDS ORDERED: Midazolam 2mg/2ml Inj IVP PRN (12:00)
[2018-07-31] MEDS ORDERED: fentaNYL 100 mcg/2 mL IV PRN (12:00)
[2018-07-31] MEDS ORDERED: Atropine Inj 1mg/10ml Syr IV PRN (12:00)
[2018-07-31] MEDS: D5NS 1,000 ML IV SCH (12:20)
--- NOTE | 2018-07-31 13:02 | General Progress Note ---
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 (2) Dementia ICD Codes: F03.90 - Unspecified dementia without behavioral disturbance SNOMED: [id number] Assessment/Plan Seroquel prn provided ro/st Subjective Neurologic/Psychiatric: Reports: anxiety, depressed Allergies: Coded Allergies: CEFTRIAXONE (Verified Allergy, Unknown, 07/28/18) rash reaction Subjective the pt is nonverbal Objective Last 24 Hour Vital Signs Date Time Temp Pulse Resp B/P (MAP) Pulse Ox O2 Delivery O2 Flow Rate FiO2 07/31/18 12:45 86 21 98 Nasal Cannula 3.0 32 07/31/18 12:30 80 20 99 Nasal Cannula 3.0 32 07/31/18 11:57 74 18 100 07/31/18 11:55 73 18 100 07/31/18 11:45 97.6 74 19 110/67 100 Nasal Cannula 3 07/31/18 11:30 76 20 99/58 99 Nasal Cannula 3 07/31/18 11:20 97.8 73 18 104/63 100 Simple Mask 6 07/31/18 08:22 98.1 81 18 117/59 (78) 100 07/31/18 07:27 90 18 98 Nasal Cannula 3.0 32 07/31/18 07:11 94 Nasal Cannula 3.0 32 07/31/18 07:11 84 16 94 Nasal Cannula 3.0 32 07/31/18 07:11 Nasal Cannula 3.0 32 07/31/18 04:00 99.0 79 16 113/67 (82) 100 07/31/18 01:09 90 16 100 Nasal Cannula 3.0 32 07/31/18 01:02 86 14 100 Nasal Cannula 3.0 32 07/31/18 00:00 97.4 80 20 112/52 (72) 95 07/30/18 21:00 Nasal Cannula 2.0 07/30/18 20:00 99.2 90 20 126/73 (90) 100 07/30/18 19:36 90 18 98 Nasal Cannula 3.0 32 07/30/18 19:28 82 18 94 Nasal Cannula 3.0 32 07/30/18 19:28 94 Nasal Cannula 3.0 32 07/30/18 19:28 Nasal Cannula 3.0 32 07/30/18 16:00 99.1 88 20 114/62 (79) 100 07/30/18 14:06 92 18 97 Nasal Cannula 3.0 32 07/30/18 13:57 85 20 96 Nasal Cannula 3.0 32 Intake and Output 07/30/18 07/31/18 19:00 07:00 Intake Total 1620 ml 1935.0 ml Output Total 500 ml Balance 1620 ml 1435.0 ml Free Water 300 ml 400 ml IV Total 720 ml 935.0 ml Tube Feeding 600 ml 600 ml Output Urine Total 500 ml # Bowel Movements 2 Laboratory Tests 07/30/18 16:45: Vancomycin Level Trough 7.5 07/31/18 06:35: White Blood Count 8.1, Red Blood Count 3.18L, Hemoglobin 8.5L, Hematocrit 28.3L , Mean Corpuscular Volume 89, Mean Corpuscular Hemoglobin 26.8L, Mean Corpuscular Hemoglobin Concent 30.1L, Red Cell Distribution Width 16.7H, Platelet Count 496H, Mean Platelet Volume 5.7L, Neutrophils (%) (Auto) 64.6, Lymphocytes (%) (Auto) 13.7L, Monocytes (%) (Auto) 3.2, Eosinophils (%) (Auto) 17.7H, Basophils (%) (Auto) 0.9, Prothrombin Time 11.2, Prothromb Time International Ratio 1.1, Activated Partial Thromboplast Time 30, Sodium Level 138, Potassium Level 3.3L, Chloride Level 103, Carbon Dioxide Level 30, Anion Gap 5, Blood Urea Nitrogen 10, Creatinine 0.7, Estimat Glomerular Filtration Rate > 60, Glucose Level 242H, Calcium Level 8.5 Height (Feet): 5 Height (Inches): 7.00 Weight (Pounds): 141 General Appearance: confused, moderate distress, agitated Shawn Meza MD Jul 31, 2018 13:02
--- NOTE | 2018-07-31 13:52 | Infectious Diseases Prog Note ---
Assessment/Plan Assessment/Plan A; Sepsis Pneumonia UTI with Providencia Dislodged GT, replaced Mild abdominal wall cellulitis DM Pressure ulcer Dementia P; discontinue Zosyn & Vancomycin Family wants hospice care Case was D/W primary MD Subjective ROS Limited/Unobtainable: Yes Constitutional: Reports: no symptoms Allergies: Coded Allergies: CEFTRIAXONE (Verified Allergy, Unknown, 07/28/18) rash reaction Objective Vital Signs Last 24 Hour Vital Signs Date Time Temp Pulse Resp B/P (MAP) Pulse Ox O2 Delivery O2 Flow Rate FiO2 07/31/18 12:45 86 21 98 Nasal Cannula 3.0 32 07/31/18 12:30 80 20 99 Nasal Cannula 3.0 32 07/31/18 12:00 98.1 80 20 116/57 (76) 98 07/31/18 11:57 74 18 100 07/31/18 11:55 73 18 100 07/31/18 11:45 97.6 74 19 110/67 100 Nasal Cannula 3 07/31/18 11:30 76 20 99/58 99 Nasal Cannula 3 07/31/18 11:20 97.8 73 18 104/63 100 Simple Mask 6 07/31/18 09:00 Nasal Cannula 2.0 07/31/18 08:22 98.1 81 18 117/59 (78) 100 07/31/18 07:27 90 18 98 Nasal Cannula 3.0 32 07/31/18 07:11 94 Nasal Cannula 3.0 32 07/31/18 07:11 84 16 94 Nasal Cannula 3.0 32 07/31/18 07:11 Nasal Cannula 3.0 32 07/31/18 04:00 99.0 79 16 113/67 (82) 100 07/31/18 01:09 90 16 100 Nasal Cannula 3.0 32 07/31/18 01:02 86 14 100 Nasal Cannula 3.0 32 07/31/18 00:00 97.4 80 20 112/52 (72) 95 07/30/18 21:00 Nasal Cannula 2.0 07/30/18 20:00 99.2 90 20 126/73 (90) 100 07/30/18 19:36 90 18 98 Nasal Cannula 3.0 32 07/30/18 19:28 82 18 94 Nasal Cannula 3.0 32 07/30/18 19:28 94 Nasal Cannula 3.0 32 07/30/18 19:28 Nasal Cannula 3.0 32 07/30/18 16:00 99.1 88 20 114/62 (79) 100 07/30/18 14:06 92 18 97 Nasal Cannula 3.0 32 07/30/18 13:57 85 20 96 Nasal Cannula 3.0 32 Height (Feet): 5 Height (Inches): 7.00 Weight (Pounds): 141 General Appearance: no acute distress HEENT: mucous membranes moist Respiratory/Chest: lungs clear Cardiovascular: normal rate Abdomen: soft, non tender, other - GT feeding Skin: ulcers, other - bruises Neurologic/Psychiatric: aphasia Microbiology Date/Time Source Procedure Growth Status 07/30/18 06:00 Stool Clostridium difficile Toxin Assay - Final Complete Laboratory Tests Test 07/30/18 16:45 07/31/18 06:35 Vancomycin Level Trough 7.5 ug/mL (5.0-12.0) White Blood Count 8.1 K/UL (4.8-10.8) Red Blood Count 3.18 M/UL (4.70-6.10) L Hemoglobin 8.5 G/DL (14.2-18.0) L Hematocrit 28.3 % (42.0-52.0) L Mean Corpuscular Volume 89 FL (80-99) Mean Corpuscular Hemoglobin 26.8 PG (27.0-31.0) L Mean Corpuscular Hemoglobin Concent 30.1 G/DL (32.0-36.0) L Red Cell Distribution Width 16.7 % (11.6-14.8) H Platelet Count 496 K/UL (150-450) H Mean Platelet Volume 5.7 FL (6.5-10.1) L Neutrophils (%) (Auto) 64.6 % (45.0-75.0) Lymphocytes (%) (Auto) 13.7 % (20.0-45.0) L Monocytes (%) (Auto) 3.2 % (1.0-10.0) Eosinophils (%) (Auto) 17.7 % (0.0-3.0) H Basophils (%) (Auto) 0.9 % (0.0-2.0) Prothrombin Time 11.2 SEC (9.30-11.50) Prothromb Time International Ratio 1.1 (0.9-1.1) Activated Partial Thromboplast Time 30 SEC (23-33) Sodium Level 138 MMOL/L (136-145) Potassium Level 3.3 MMOL/L (3.5-5.1) L Chloride Level 103 MMOL/L (98-107) Carbon Dioxide Level 30 MMOL/L (21-32) Anion Gap 5 mmol/L (5-15) Blood Urea Nitrogen 10 mg/dL (7-18) Creatinine 0.7 MG/DL (0.55-1.30) Estimat Glomerular Filtration Rate > 60 mL/min (>60) Glucose Level 242 MG/DL (74-106) H Calcium Level 8.5 MG/DL (8.5-10.1) Current Medications Medications (Trade) Dose Ordered Sig/Briseida Route PRN Reason Start Time Stop Time Status Last Admin Dose Admin Acetaminophen (Tylenol) 650 mg Q6HR PRN RECTAL fever T>100.5 07/28/18 01:00 08/27/18 00:59 Al Hydroxide/Mg Hydroxide (Mylanta) 15 ml Q1H PRN ORAL gi upset 07/31/18 12:00 07/31/18 19:00 Atropine Sulfate (Atropine) 0.5 mg Q5M PRN IV bpm less than 45 07/31/18 12:00 07/31/18 19:00 Dextrose/Sodium Chloride 1,000 ml @ 60 mls/hr [id number] IV 07/28/18 01:00 08/27/18 00:59 07/30/18 20:59 Diphenhydramine HCl (Benadryl) 25 mg Q15M PRN IVP Itching 07/31/18 12:00 07/31/18 19:00 Fentanyl Citrate (Sublimaze 100 mcg/2 mL) 25 mcg Q10M PRN IV Moderate Pain (Pain Scale 4-6) 07/31/18 12:00 07/31/18 19:00 Heparin Sodium (Porcine) (Heparin 5000 units/ml) 5,000 units EVERY 12 HOURS SUBQ 07/28/18 09:00 08/27/18 08:59 07/30/18 21:03 Hydralazine HCl (Apresoline) 5 mg Q30M PRN IV SBP>160 OR___/DBP>90 OR___ 07/31/18 12:00 07/31/18 19:00 Ipratropium [place] (Atrovent) 500 mcg Q6HRT HHN 07/27/18 22:15 08/01/18 22:14 07/31/18 12:30 Midazolam HCl (Versed 2mg/2ml vial) 1 mg Q15M PRN IVP For Anxiety 07/31/18 12:00 07/31/18 19:00 Morphine Sulfate (Morphine Sulfate) 2 mg Q6H PRN IVP For severe pain 07/28/18 01:00 08/04/18 00:59 Ondansetron HCl (Zofran) 4 mg Q1H PRN IVP Nausea & Vomiting 07/31/18 12:00 07/31/18 19:00 Ondansetron HCl (Zofran) 4 mg Q8H PRN IVP Nausea & Vomiting 07/28/18 01:00 08/27/18 00:59 Piperacillin Sod/ Tazobactam Sod 3.375 gm/Dextrose 110 ml @ 27.5 mls/hr Q8HR IVPB 07/28/18 14:00 08/04/18 13:59 07/31/18 05:04 Vancomycin HCl (Vanco rx to dose) 1 ea DAILY PRN MISC Per rx protocol 07/28/18 01:00 08/27/18 00:59 Vancomycin HCl 500 mg/Dextrose 110 ml @ 110 mls/hr Q12H IVPB 07/30/18 20:00 08/04/18 19:59 07/31/18 08:12 Herson Palmer MD Jul 31, 2018 13:52
[2018-07-31] MEDS ORDERED: D5NS 1000ml IV ONE (15:31)
[2018-07-31] MEDS ORDERED: NS 275ml ONE (15:31)
--- NOTE | 2018-07-31 16:30 | Procedure Note ---
DATE OF PROCEDURE: 07/31/2018 SURGEON: Beau Borja M.D. PROCEDURE: Upper endoscopy. ANESTHESIA: Per Dr. Rosales. INSTRUMENT: Olympus adult flexible upper endoscope. INDICATION: GI bleeding. The procedure, risks, benefits, and possible consequences, including hemorrhage, aspiration, perforation and infection, and alternative treatments, were explained to the patient/legal guardian by Dr. Beau Borja and the patient/legal guardian understood and accepted these risks. DESCRIPTION OF PROCEDURE: After informed consent was obtained and the patient was adequately sedated, Olympus upper endoscope was advanced from the mouth into the second portion of the duodenum and retroflexion was performed in the stomach The patient had no evidence of any active bleeding at this time. G-tube was pushed in. There was no ulceration or bleeding active from the G-tube site. There is no blood or blood clots seen in the stomach at this time. The scope was retrieved and procedure was terminated. SUMMARY OF FINDINGS: No evidence of any active upper GI bleeding at this time. PLAN: Resume tube feeding. I want to thank Dr. Jamia Wu , for this kind referral. Beau Borja M.D. DR: Brayan JOB#: [id number] CC: Jamia Wu M.D.; Fax#: [phone]
--- NOTE | 2018-07-31 16:39 | Pulmonology Progress Note ---
Assessment/Plan Assessment/Plan Pulmonary Progress Note Chief Complaint: Fever, dislodged G tube Patient is a frail elderly [place] resident admitted s/p dislodgement of G tube, worsening respiratory distress, felt to have possible aspiration pneumonia. Patient is DNAR/DNI Improved Pulmonary Status PMH: Dementia, HTN, Asthma, Previous CVA, s/p G tube - now reinserted Allergies: CEFTRIAXONE (Verified Allergy, Unknown, 04/04/18) Physical Exam Vital Signs Noted Elderly wasted man, contarctures, chronically ill appearing HEENT: NCAT, dry MM, JVP not elevated Chest: bilateral rhonchi Heart: HS1, HS2 RRR Abdo: Soft, ND, NT, G tube site appears infected Extrem: Wasted, no edema [employer]: Generally weak, no response to command, no seizures Last Vital Signs Date Time Temp Pulse Resp B/P (MAP) Pulse Ox O2 Delivery O2 Flow Rate FiO2 07/27/18 17:23 101.0 116 21 112/81 98 Nasal Cannula 4.0 Impression: GTube dislodgement, with possible cellulitis Aspiration Pneumonia Dementia HTN Asthma Previous CVA DNR/DNI Plan: IV Zosyn, Vanco, levaquin IVF HHN/CPT Q6 Aspiration precautions Pain meds Comfort meds Await reinsertion G-tube by GI O2 PRN SQ Heparin Labs CXR Subjective ROS Limited/Unobtainable: Yes Allergies: Coded Allergies: CEFTRIAXONE (Verified Allergy, Unknown, 07/28/18) rash reaction Objective Last 24 Hour Vital Signs Date Time Temp Pulse Resp B/P (MAP) Pulse Ox O2 Delivery O2 Flow Rate FiO2 07/31/18 12:45 86 21 98 Nasal Cannula 3.0 32 07/31/18 12:30 80 20 99 Nasal Cannula 3.0 32 07/31/18 12:00 98.1 80 20 116/57 (76) 98 07/31/18 11:57 74 18 100 07/31/18 11:55 73 18 100 07/31/18 11:45 97.6 74 19 110/67 100 Nasal Cannula 3 07/31/18 11:30 76 20 99/58 99 Nasal Cannula 3 07/31/18 11:20 97.8 73 18 104/63 100 Simple Mask 6 07/31/18 09:00 Nasal Cannula 2.0 07/31/18 08:22 98.1 81 18 117/59 (78) 100 07/31/18 07:27 90 18 98 Nasal Cannula 3.0 32 07/31/18 07:11 94 Nasal Cannula 3.0 32 07/31/18 07:11 84 16 94 Nasal Cannula 3.0 32 07/31/18 07:11 Nasal Cannula 3.0 32 07/31/18 04:00 99.0 79 16 113/67 (82) 100 07/31/18 01:09 90 16 100 Nasal Cannula 3.0 32 07/31/18 01:02 86 14 100 Nasal Cannula 3.0 32 07/31/18 00:00 97.4 80 20 112/52 (72) 95 07/30/18 21:00 Nasal Cannula 2.0 07/30/18 20:00 99.2 90 20 126/73 (90) 100 07/30/18 19:36 90 18 98 Nasal Cannula 3.0 32 07/30/18 19:28 82 18 94 Nasal Cannula 3.0 32 07/30/18 19:28 94 Nasal Cannula 3.0 32 07/30/18 19:28 Nasal Cannula 3.0 32 Intake and Output 07/30/18 07/31/18 19:00 07:00 Intake Total 1620 ml 1935.0 ml Output Total 500 ml Balance 1620 ml 1435.0 ml Free Water 300 ml 400 ml IV Total 720 ml 935.0 ml Tube Feeding 600 ml 600 ml Output Urine Total 500 ml # Bowel Movements 2 Microbiology Date/Time Source Procedure Growth Status 07/30/18 06:00 Stool Clostridium difficile Toxin Assay - Final Complete Laboratory Tests 07/30/18 16:45: Vancomycin Level Trough 7.5 07/31/18 06:35: White Blood Count 8.1, Red Blood Count 3.18L, Hemoglobin 8.5L, Hematocrit 28.3L , Mean Corpuscular Volume 89, Mean Corpuscular Hemoglobin 26.8L, Mean Corpuscular Hemoglobin Concent 30.1L, Red Cell Distribution Width 16.7H, Platelet Count 496H, Mean Platelet Volume 5.7L, Neutrophils (%) (Auto) 64.6, Lymphocytes (%) (Auto) 13.7L, Monocytes (%) (Auto) 3.2, Eosinophils (%) (Auto) 17.7H, Basophils (%) (Auto) 0.9, Prothrombin Time 11.2, Prothromb Time International Ratio 1.1, Activated Partial Thromboplast Time 30, Sodium Level 138, Potassium Level 3.3L, Chloride Level 103, Carbon Dioxide Level 30, Anion Gap 5, Blood Urea Nitrogen 10, Creatinine 0.7, Estimat Glomerular Filtration Rate > 60, Glucose Level 242H, Calcium Level 8.5 Current Medications Medications (Trade) Dose Ordered Sig/Briseida Route PRN Reason Start Time Stop Time Status Last Admin Dose Admin Acetaminophen (Tylenol) 650 mg Q6HR PRN RECTAL fever T>100.5 07/28/18 01:00 08/27/18 00:59 Al Hydroxide/Mg Hydroxide (Mylanta) 15 ml Q1H PRN ORAL gi upset 07/31/18 12:00 07/31/18 19:00 Atropine Sulfate (Atropine) 0.5 mg Q5M PRN IV bpm less than 45 07/31/18 12:00 07/31/18 19:00 Dextrose/Sodium Chloride 1,000 ml @ 60 mls/hr [id number] IV 07/28/18 01:00 08/27/18 00:59 07/30/18 20:59 Diphenhydramine HCl (Benadryl) 25 mg Q15M PRN IVP Itching 07/31/18 12:00 07/31/18 19:00 Fentanyl Citrate (Sublimaze 100 mcg/2 mL) 25 mcg Q10M PRN IV Moderate Pain (Pain Scale 4-6) 07/31/18 12:00 07/31/18 19:00 Heparin Sodium (Porcine) (Heparin 5000 units/ml) 5,000 units EVERY 12 HOURS SUBQ 07/28/18 09:00 08/27/18 08:59 07/30/18 21:03 Hydralazine HCl (Apresoline) 5 mg Q30M PRN IV SBP>160 OR___/DBP>90 OR___ 07/31/18 12:00 07/31/18 19:00 Ipratropium [place] (Atrovent) 500 mcg Q6HRT HHN 07/27/18 22:15 08/01/18 22:14 07/31/18 12:30 Midazolam HCl (Versed 2mg/2ml vial) 1 mg Q15M PRN IVP For Anxiety 07/31/18 12:00 07/31/18 19:00 Morphine Sulfate (Morphine Sulfate) 2 mg Q6H PRN IVP For severe pain 07/28/18 01:00 08/04/18 00:59 Ondansetron HCl (Zofran) 4 mg Q1H PRN IVP Nausea & Vomiting 07/31/18 12:00 07/31/18 19:00 Ondansetron HCl (Zofran) 4 mg Q8H PRN IVP Nausea & Vomiting 07/28/18 01:00 08/27/18 00:59 Potassium Chloride (K-Dur) 40 meq ONCE GT 07/31/18 16:37 07/31/18 17:37 Nikko Franklin MD Jul 31, 2018 16:39
--- NOTE | 2018-08-01 12:22 | Discharge Summary ---
Discharge Summary Discharge Summary _ DATE OF ADMISSION: 07/27/2018 DATE OF DISCHARGE: 07/31/2018 DISCHARGED BY: Dr. Jamia Zhou CONSULTANTS: Dr. Chava Richards BRIEF HOSPITAL COURSE: Patient is a 68-year-old male, who returned to ED as G-tube was partially pulled out. He had recent admission for sepsis. On evaluation at the ED, he was found to be febrile and with respiratory distress. The emergency department , attempt to replace G-tube was done however unable to place another G-tube as tract was not present. Chest x-ray showed bilateral infiltrates. He was given pulmonary toilet. He was started on IV hydration. Blood work showed leukocytosis. Urinalysis with 2+ leukocyte esterase, 40-60 RBCs, 10-15 WBC. He was then admitted for evaluation of pneumonia, PEG tube malfunction and UTI. Respiratory status were monitored. He was given nebulizer treatments. He was placed on aspiration precautions. He was given chest physiotherapy. He was started empirically on vancomycin, Levaquin and Zosyn. Levaquin was eventually discontinued. On July 29, 2018, he underwent EGD with PEG tube placement. He was disorganized and was agitated at times. He was given Seroquel. He came in with right trochanteric pressure injury; full-thickness sacral pressure injury; full-thickness pressure injury to the left trochanter. Surgeon was called to assist with wound care. Wound care was rendered. He was placed on air-fluidized mattress, with frequent repositioning and offloading. On July 31, 2018, he underwent upper endoscopy to assess for bleeding. There was no evidence of active bleeding seen. Tube feeding was resumed. There was mild abdominal cellulitis. Wound culture showed growth of ESBL E. coli and Proteus. Urine culture with [facility]. Blood culture did not isolate any growth. Pulmonary status improved. Family wanted hospice care. Antibiotics were discontinued. He was discharged back to halfway. 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 DISCHARGE MEDICATIONS: Refer to Discharge Medication List. DISCHARGE INSTRUCTIONS: Follow-up in a week. I have been assigned to dictate discharge summary on this account, and I was not involved in the patient's management. Liana Gilliland NP Aug 01, 2018 12:22
== END 2018-07-31 21:00 | DRG 871 ==
LOC: EDBD 17:23 → EMR 18:37 → 4E 18:55 → EDBEDREQ 20:34
PROC: 0DH63UZ Insertion of Feeding Device into Stomach, Percutaneous Approach (ICD-10-PCS; principal; 2018-07-29 11:55)
PROC: 0DJ08ZZ Inspection of Upper Intestinal Tract, Via Natural or Artificial Opening Endoscopic (ICD-10-PCS; 2018-07-31)
DX: A41.9 Sepsis, unspecified organism (principal); L89.154 Pressure ulcer of sacral region, stage 4; L89.224 Pressure ulcer of left hip, stage 4; L89.213 Pressure ulcer of right hip, stage 3; J69.0 Pneumonitis due to inhalation of food and vomit; R53.2 Functional quadriplegia; E43 Unspecified severe protein-calorie malnutrition; G93.41 Metabolic encephalopathy; N39.0 Urinary tract infection, site not specified; K94.23 Gastrostomy malfunction; K94.22 Gastrostomy infection; L03.311 Cellulitis of abdominal wall; R47.01 Aphasia; E86.0 Dehydration; Z85.46 Personal history of malignant neoplasm of prostate; F03.90 Unspecified dementia, unspecified severity, without behavioral disturbance, psychotic disturbance, mood disturbance, and anxiety; E11.9 Type 2 diabetes mellitus without complications; R13.10 Dysphagia, unspecified; Z66 Do not resuscitate; Z68.22 Body mass index [BMI] 22.0-22.9, adult; D64.9 Anemia, unspecified; D47.3 Essential (hemorrhagic) thrombocythemia
CPT/HCPCS: 36415; 71045; 80048; 80053; 80202; 81003; 82270; 82378; 82550; 82607; 82728; 82746; 82962; 83540; 83550; 83605; 83735; 83880; 84439; 84443; 84484; 85007; 85025; 85044; 85610; 85730; 87040; 87070; 87086; 87181; 87205; 87324; 93005; 94003; 94150; 94640; 94664; 94760; 96365; 96367; 96368; 99285; J8499